=== PATIENT | male | born 1960 | race Caucasian/White ===

== ENCOUNTER 2020-11-23 14:43 | Observation (INO) | payer MEDICARE, MEDICAID, SELFPAY ==
[2020-11-23] VITALS (13 sets, daily range): BP systolic 112–178; BP diastolic 61–92; PULSE 69–85; RESP 12–20; TEMP 36.7–36.8; O2SAT 95–97; BMI 45.7
--- NOTE | 2020-11-23 14:47 | ECG_ITS ---
[facility] Test Date: 2020-11-23 Pat Name: Jeremie Alexander Department: Room: Gender: Male Public Address Technician: : 1960 Requested By: Moustapha Brown Order Number: [id number] Jane MD: Joyce Gonzalez M.D. Measurements Intervals [place] Rate: 85 P: 45 ID: [id number] QRS: 5 QRSD: 104 T: 16 QT: 365 QTc: 435 Interpretive Statements SINUS RHYTHM LOW QRS VOLTAGE IN PRECORDIAL LEADS [QRS DEFLECTION < 1.0 mV IN CHEST LEADS] INTERPRETATION BASED ON A DEFAULT AGE OF 40 YEARS No previous ECG available for comparison Electronically Signed On 11-24-2020 10:36:26 CDT by Joyce Gonzalez M.D. [id number]
--- NOTE | 2020-11-23 14:47 | XRR_ITS ---
PROCEDURE INFORMATION: Exam: XR Chest Exam date and time: 11/23/2020 3:01 PM Age: 60 years old Clinical indication: Chest pain; Prior surgery; Surgery type: Pacemaker, stents; Additional info: Cp TECHNIQUE: Imaging protocol: XR of the chest. Views: 1 view. COMPARISON: No relevant prior studies available. FINDINGS: Tubes, catheters and devices: There is a dual-lead cardiac AICD via left subclavian approach. The tips are in the expected locations of the right atrium and right ventricle. Lungs: Mild elevation of the right hemidiaphragm. No focal consolidation. No pulmonary edema. Pleural spaces: No pleural effusion. No pneumothorax. Heart/Mediastinum: The cardiac silhouette is mildly enlarged. Mediastinal contours are unremarkable. Vasculature: Vascular calcifications in the aorta. Bones/joints: Unremarkable for age. XR/XR chest 1V portable [id number] IMPRESSION: 1. No acute cardiopulmonary process. 2. There is a dual-lead cardiac AICD via left subclavian approach. The tips are in the expected locations of the right atrium and right ventricle. 3. Incidental/nonacute findings are listed in the report.
--- NOTE | 2020-11-23 14:56 | W.ED.CHESTPA ---
HPI - Chest Pain General: Chief Complaint: Chest Pain Stated Complaint: CHEST PAIN Time Seen by Provider: 11/23/20 14:47 History of Present Illness: HPI narrative: The patient is a 60-year-old male with past medical history very artery disease with 9 stents, pacer placement, atrial fibrillation on Eliquis. He comes to the ER complaining of left-sided chest pain. He says he has never had an FL before. He took 3 nitroglycerin at home yesterday which helped his chest pain and today they did not so he called an ambulance. They gave him aspirin 325, and fentanyl 100 mg which decreased his pain from a 9 to a 7. 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 Timing of current episode: episodic Onset: during rest and during exertion Pain location: left chest Severity: moderate Quality: tightness Relieving factors: nothing Associated symptoms: Reports nausea; Deny dyspnea or palpitations Review of Systems General: Reports: 10 or more systems reviewed and unremarkable except in HPI and below Const: Denies: fatigue Eyes: Denies: change in vision, blurry vision or eye redness ENMT: Denies: throat pain, swelling of lips/tongue, ear or mastoid pain or nasal congestion Card: Reports: chest pain; Denies: palpitations, irregular heart rhythm, edema, dyspnea on exertion or orthopnea Resp: Denies: dyspnea, productive cough or non-productive cough GI: Reports: nausea : Denies: flank pain, urinary frequency or urinary urgency Musc: Denies: neck pain, back pain, extremity pain, joint pain, joint redness, limited range of motion or muscle weakness Skin/Breast: Denies: rash, pruritus, erythema, skin pain or skin tenderness Neuro: Denies: headache(s), numbness in extremities, weakness in extremities, sensory changes, difficulty walking, dizziness, confusion or Slurred speech present Psych: Denies: anxiety or depression Endo: Denies: polyuria All/Imm: Denies: urticaria, throat swelling or tongue swelling Physical Exam Const: COMMON NORMALS: no acute distress, average body habitus, patient oriented x3, no limitations, healthy appearing, alert and well nourished GENERAL APPEARANCE: cooperative, comfortable, well kempt and well developed ORIENTATION/CONSCIOUSNESS: Yes awake, Yes oriented to person, Yes oriented to place and Yes oriented to time HENMT: COMMON NORMALS: normocephalic, external ears normal and Normal external nose present HEAD & SCALP: normal to inspection and normocephalic NOSE: Normal external nose present EXTERNAL EAR: Yes external ears normal MOUTH: Normal oral and palatal mucosa present THROAT: posterior oropharynx normal Eye: COMMON NORMALS: Equal, round and reactive pupils present and EOMs intact bilaterally GENERAL EYE: appearance normal, both eyes and all related structures PUPIL: Yes Equal, round and reactive pupils present Neck/C-Spine: COMMON NORMALS: full ROM, no lymphadenopathy, no meningeal signs and no JVD GENERAL: Yes normal visual inspection Lymph: LYMPHATIC: no lymphadenopathy noted Chest: COMMONS NORMALS: normal inspection of the chest and normal palpation of entire chest wall Resp: COMMON NORMALS: normal respiratory effort, No retractions, No use of accessory muscles, clear to auscultation bilaterally and percussion normal EFFORT & INSPECTION: Yes able to speak in complete sentences AUSCULTATION: clear to auscultation bilaterally PERCUSSION: percussion normal Cardio: COMMON NORMALS: no JVD, regular rate, regular rhythm, S1 normal heart sound present, S2 normal heart sound present and Peripheral pulses 2+ throughout RATE: regular rate RHYTHM: regular rhythm HEART SOUNDS: S1 normal heart sound present and S2 normal heart sound present PERIPHERAL PULSES: Peripheral pulses 2+ throughout GI: COMMON NORMALS: Normal to inspection, nondistended, normoactive bowel sounds present, Soft to palpation, non-tender and no masses INSPECTION: Yes normal to inspection PALPATION: Yes Soft to palpation : COMMON NORMALS: Yes no CVA tenderness BLADDER/KIDNEY EXAM: Yes no CVA tenderness Back/Pelvis: COMMON NORMALS: no CVA tenderness, thoracic and lumbar spine normal to inspection, no thoracic nor lumbar tenderness and thoraco-lumbar ROM normal Extremity: COMMON NORMALS: normal to inspection, full ROM, capillary refill normal, no joint enlargement and no pedal edema GENERAL: Yes normal exam except as noted Neuro: COMMON NORMALS: patient oriented x3, CN's II-XII intact bilaterally, moves all extremities, no focal motor deficits, no sensory deficits noted and gait normal SENSORIUM/ORIENTATION: Yes alert, Yes oriented to person, Yes oriented to place and Yes oriented to time MENINGEAL SIGNS: Yes no meningeal signs Psych: COMMON NORMALS: mental status grossly normal, Normal thought process present, cooperative, normal affect and speech normal APPEARANCE: Yes well kempt ATTITUDE: Yes calm SPEECH: Yes normal speech THOUGHT PROCESS: Normal thought process present Skin: COMMON NORMALS: no rashes or lesions noted GENERAL SKIN EXAM: no rashes or lesions noted Course Vital Signs: Vital signs: Vital Signs Temperature 98.3 F 11/23/20 14:51 Pulse Rate 77 11/23/20 18:21 Respiratory Rate 20 H 11/23/20 18:21 Blood Pressure 148/78 11/23/20 18:21 Pulse Oximetry 96 11/23/20 18:21 MDM - Chest Pain MDM Narrative: Medical decision making narrative: Patient comes to the ER complaining of left-sided typical chest pain. He has a significant history of coronary artery disease with 9 stents, A. fib, pacer. Nitroglycerin was not working at home. Troponins are normal and EKG shows sinus rhythm. He continues to require narcotics for his pain and typical chest pain. Discussed with Dr. Inman who accepts for observation Lab Data: Labs: Lab Results 11/23/20 11/23/20 11/23/20 Range/Units 15:20 15:20 15:20 WBC 6.1 (4.0-10.0) 10^3/ uL RBC 4.51 (4.1-5.3) 10^6/u L Hgb 13.1 (11.7-16.6) g/dL Hct 41.5 L (42.0-52.0) % MCV 92.0 (80-94) fL MCH 29.0 (28.0-34.0) pg MCHC 31.6 (30.0-36.0) g/dL RDW 19.8 H (12.1-15.1) % Plt Count 222 (130-400) 10^3/c mm MPV 10.2 (7.4-10.4) fL Neut % (Auto) 61.7 % Lymph % (Auto) 25.7 % [place] % (Auto) 10.6 % Eos % (Auto) 1.3 % Baso % (Auto) 0.5 % Neut # (Auto) 3.78 (1.8-7.7) 10^3/u L Lymph # (Auto) 1.6 (0.8-4.8) 10^3/u L [place] # (Auto) 0.7 (0.2-0.9) 10^3/u L Eos # (Auto) 0.1 (0.0-0.8) 10^3/u L Baso # (Auto) 0.0 (0.0-0.1) 10^3/u L Nucleated RBC % (a uto) 0 % Nucleated RBCs # 0.0 /100WBC D-Dimer 0.34 (0-0.59) ug/mIFE U Sodium 141 (136-145) mmol/L Potassium 4.1 (3.5-5.1) mmol/L Chloride 106 (98-107) mmol/L Carbon Dioxide 26 (22-29) mmol/L Anion Gap 13.1 (5-19) BUN 12 (6-20) mg/dL Creatinine 1.0 (0.7-1.2) mg/dL GFR Calculation 76.5 L (90-130) mL/min Glucose 127 H (65-115) mg/dL Calculated Osmolal ity 293 (285-295) mOsm/k g Calcium 8.4 L (8.5-10.5) mg/dL Total Bilirubin 0.2 (0.15-1.2) mg/dL AST 28 (0-40) U/L ALT 46 H (0-41) U/L Alkaline Phosphata se 132 H (40-130) IU/L Troponin T Baselin e (0-15) ng/L Troponin T 120 Min ramos (0-15) ng/L Delta Troponin T (0-10) ABS# NT-Pro-B Natriuret Pep 49 (0-125) pg/mL Total Protein 6.2 L (6.6-8.7) g/dL Albumin 4.0 (3.5-5.2) g/dL Globulin 2.2 (1.3-4.6) g/dL Urine Color (Yellow) Urine Appearance (CLEAR) Urine pH (5-7) Ur Specific Gravit y (1.005-1.030) Urine Protein (Negative) Urine Glucose (UA) (Normal) Urine Ketones (Negative) Urine Blood (Negative) Urine Nitrate (Negative) Urine Bilirubin (Negative) Urine Urobilinogen (Negative) mg/dL Ur Leukocyte Kristina ase (Negative) Urine RBC (0-2) /hpf Urine WBC (0-5) /hpf Ur Squamous Epith Cells (0-5) /hpf Calcium Oxalate Cr ystal /hpf Amorphous Sediment Urine Bacteria (NONE) /hpf Urine Mucus /hpf 11/23/20 11/23/20 11/23/20 Range/Units 15:20 15:35 17:15 WBC (4.0-10.0) 10^3/ uL RBC (4.1-5.3) 10^6/u L Hgb (11.7-16.6) g/dL Hct (42.0-52.0) % MCV (80-94) fL MCH (28.0-34.0) pg MCHC (30.0-36.0) g/dL RDW (12.1-15.1) % Plt Count (130-400) 10^3/c mm MPV (7.4-10.4) fL Neut % (Auto) % Lymph % (Auto) % [place] % (Auto) % Eos % (Auto) % Baso % (Auto) % Neut # (Auto) (1.8-7.7) 10^3/u L Lymph # (Auto) (0.8-4.8) 10^3/u L [place] # (Auto) (0.2-0.9) 10^3/u L Eos # (Auto) (0.0-0.8) 10^3/u L Baso # (Auto) (0.0-0.1) 10^3/u L Nucleated RBC % (a uto) % Nucleated RBCs # /100WBC D-Dimer (0-0.59) ug/mIFE U Sodium (136-145) mmol/L Potassium (3.5-5.1) mmol/L Chloride (98-107) mmol/L Carbon Dioxide (22-29) mmol/L Anion Gap (5-19) BUN (6-20) mg/dL Creatinine (0.7-1.2) mg/dL GFR Calculation (90-130) mL/min Glucose (65-115) mg/dL Calculated Osmolal ity (285-295) mOsm/k g Calcium (8.5-10.5) mg/dL Total Bilirubin (0.15-1.2) mg/dL AST (0-40) U/L ALT (0-41) U/L Alkaline Phosphata se (40-130) IU/L Troponin T Baselin e 14 (0-15) ng/L Troponin T 120 Min ramos 14.83 (0-15) ng/L Delta Troponin T 0.83 (0-10) ABS# NT-Pro-B Natriuret Pep (0-125) pg/mL Total Protein (6.6-8.7) g/dL Albumin (3.5-5.2) g/dL Globulin (1.3-4.6) g/dL Urine Color Yellow (Yellow) Urine Appearance Clear (CLEAR) Urine pH 5 (5-7) Ur Specific Gravit y 1.020 (1.005-1.030) Urine Protein Trace (Negative) Urine Glucose (UA) Norm (Normal) Urine Ketones Negative (Negative) Urine Blood Neg (Negative) Urine Nitrate Negative (Negative) Urine Bilirubin Neg (Negative) Urine Urobilinogen Norm (Negative) mg/dL Ur Leukocyte Kristina ase Negative (Negative) Urine RBC None (0-2) /hpf Urine WBC None (0-5) /hpf Ur Squamous Epith Cells None (0-5) /hpf Calcium Oxalate Cr ystal 5-10 H /hpf Amorphous Sediment Not Reportable Urine Bacteria Trace (NONE) /hpf Urine Mucus 1+ /hpf Discharge Plan Discharge Patient Disposition: Placed in Observation Clinical Impression: Chest pain Coding Level of Care Code ED Winding Rack Operator for Anabela Fwd Exam Comprehensive
[2020-11-23 15:29] LABS: Basophils % 0.5 %; Eosinophils # 0.1 10^3/uL (0.0-0.8); Eosinophils % 1.3 %; Hematocrit 41.5 % (42.0-52.0); Hemoglobin 13.1 g/dL (11.7-16.6); Lymphocytes # 1.6 10^3/uL (0.8-4.8); Lymphocytes % 25.7 %; Mean Corpuscular HGB Conc 31.6 g/dL (30.0-36.0); Mean Platelet Volume 10.2 fL (7.4-10.4); Monocytes # 0.7 10^3/uL (0.2-0.9); Monocytes % 10.6 %; Neutrophils # 3.78 10^3/uL (1.8-7.7); Neutrophils % 61.7 %; Nucleated Red Blood Cells % 0 %; Platelet Count 222 10^3/cmm (130-400); Red Blood Count 4.51 10^6/uL (4.1-5.3); Red Cell Distribution Width 19.8 % (12.1-15.1); White Blood Count 6.1 10^3/uL (4.0-10.0)
[2020-11-23 15:42] LABS: D Dimer 0.34 ug/mIFEU (0-0.59)
[2020-11-23] MEDS: morphine 4 mg/mL SDV 1 mL 2 MG IVP ×2 (15:47→19:13)
[2020-11-23 15:58] LABS: Troponin(5th) Baseline 14 ng/L (0-15)
[2020-11-23 16:06] LABS: Alanine Aminotransferase 46 U/L (0-41); Alkaline Phosphatase 132 IU/L (40-130); Anion Gap 13.1 (5-19); Aspartate Amino Transferase 28 U/L (0-40); Blood Urea Nitrogen 12 mg/dL (6-20); Calcium 8.4 mg/dL (8.5-10.5); Carbon Dioxide 26 mmol/L (22-29); Chloride 106 mmol/L (98-107); Globulin 2.2 g/dL (1.3-4.6); Glomerular Filtration Rate 76.5 mL/min (90-130); Glucose 127 mg/dL (65-115); NT Pro B Type Natriuretic Pept 49 pg/mL (0-125); Osmolality Calculated 293 mOsm/kg (285-295); Potassium 4.1 mmol/L (3.5-5.1); Sodium 141 mmol/L (136-145); Total Bilirubin 0.2 mg/dL (0.15-1.2); Total Protein 6.2 g/dL (6.6-8.7)
[2020-11-23 16:10] LABS: Add Urine Microscopic? YES; Bilirubin Urine Neg (Negative); Blood Urine Neg (Negative); Glucose Urine UA Norm (Normal); Ketones Urine Negative (Negative); Leukocyte Esterase Urine Negative (Negative); Nitrate Urine Negative (Negative); Protein Urine Trace (Negative); Urine Appearance Clear (CLEAR); Urine Color Yellow (Yellow); Urobilinogen Urine Norm (Negative); pH Urine 5 (5-7)
[2020-11-23 16:12] LABS: Add Urine Culture? No; Bacteria Urine TRACE /hpf; Mucus Urine 1+ /hpf
--- NOTE | 2020-11-23 16:47 | ECG_ITS ---
[facility] Test Date: 2020-11-23 Pat Name: Jeremie Alexander Department: Room: Gender: Male Lead Systems Analyst: : 1960 Requested By: Moustapha Brown Order Number: [id number] Lucinda MD: Joyce Gonzalez M.D. Measurements Intervals [place] Rate: 79 P: 65 [place]: 151 QRS: 15 QRSD: 103 T: 30 QT: 279 QTc: 321 Interpretive Statements SINUS RHYTHM LOW QRS VOLTAGE IN PRECORDIAL LEADS [QRS DEFLECTION < 1.0 mV IN CHEST LEADS] NONSPECIFIC T-WAVE ABNORMALITY Compared to ECG 11/23/2020 14:51:25 T-wave abnormality now present Electronically Signed On 11-24-2020 10:52:10 CDT by Joyce Gonzalez M.D. [id number]
[2020-11-23 17:44] LABS: Troponin 5 2HR 14.83 ng/L (0-15); Troponin 5 2HR Delta 0.83 ABS# (0-10)
[2020-11-23] MEDS: ondansetron 2 mg/ML SDV 2 mL 4 MG IVP (19:13)
--- NOTE | 2020-11-23 19:38 | PM.HP ---
Providers/Chief Complaint Admitting Physician: Woody Inman MD Primary Care Provider: Livia Ridley MD Chief Complaint: CHEST PAIN History of Present Illness Jeremie Alexander is a 60 year old male who has established history of coronary disease status post 9 stents, pacemaker for sick sinus syndrome, atrial fibrillation chronic anticoagulation with Eliquis, depression presented today with chief complaint of left-sided chest discomfort. Patient is stating that his symptoms started at 10 AM, he is describing his symptoms as dull left-sided pain which she is able to pinpoint, it gets worse on taking deep breath, no vomiting, diaphoresis however endorsing shortness of breath and nausea, this pain was radiating towards his left shoulder and neck. He stating that this pain was similar to the one when he had stent placed. When he took nitroglycerin it did not relieve his chest discomfort. He considers himself fairly active. Does not smoke or drink alcohol. Diagnostics in the ER revealed normal EKG no significant ischemia or infarct changes, troponin not remarkably high, he is still complaining of chest discomfort as dull and constant Chest x-ray unremarkable, no electrolyte abnormality PE ruled out, calcium oxalate crystals urine Review of Systems Const: Denies: fever(s) Eyes: Denies: change in vision ENMT: Denies: throat pain Card: Reports: chest pain, irregular heart rhythm and dyspnea on exertion Resp: Denies: dyspnea GI: Denies: abdominal pain : Denies: flank pain Musc: Denies: neck pain Skin/Breast: Denies: rash Neuro: Denies: headache(s) Psych: Denies: anxiety Endo: Denies: polyuria Phu/Lymph: Denies: easy bruising All/Imm: Denies: urticaria Medications/Allergies Home Medications Medication Instructions Recorded Confirmed Last Taken Type amiodarone 200 mg PO BID 11/23/20 11/23/20 11/23/20 08:00 History apixaban [Eliquis] 5 mg PO BID 11/23/20 11/23/20 11/23/20 08:00 History bupropion HCl 100 mg PO QAM 11/23/20 11/23/20 11/23/20 08:00 History clopidogrel [Plavix] 75 mg PO DAILY 11/23/20 11/23/20 11/23/20 08:00 History cyproheptadine 4 mg PO BEDTIME 11/23/20 11/23/20 11/22/20 21:00 History desvenlafaxine succinate 50 mg PO DAILY 11/23/20 11/23/20 11/23/20 08:00 History donepezil [Aricept] 30 mg PO DAILY 11/23/20 11/23/20 11/23/20 08:00 History famotidine 20 mg PO DAILY 11/23/20 11/23/20 11/23/20 08:00 History ferrous sulfate 325 mg PO BID 11/23/20 11/23/20 11/23/20 08:00 History isosorbide mononitrate 30 mg PO BID 11/23/20 11/23/20 11/23/20 08:00 History lisinopril 20 mg PO DAILY 11/23/20 11/23/20 11/23/20 08:00 History metformin 500 mg PO DAILY 11/23/20 11/23/20 11/23/20 08:00 History mirtazapine 45 mg PO BEDTIME 11/23/20 11/23/20 11/22/20 21:00 History nvehvsnd-rrh-VJ-lycopen-lutein 1 tab PO DAILY 11/23/20 11/23/20 11/23/20 08:00 History [Sentry Senior] omega-3 fatty acids-vitamin E 1 cap PO DAILY 11/23/20 11/23/20 11/23/20 08:00 History [Fish Oil] ranolazine 500 mg PO BID 11/23/20 11/23/20 11/23/20 08:00 History rosuvastatin [Crestor] 20 mg PO DAILY 11/23/20 11/23/20 11/23/20 08:00 History tamsulosin 0.4 mg PO DAILY 11/23/20 11/23/20 11/23/20 08:00 History temazepam 15 mg PO BEDTIME 11/23/20 11/23/20 11/22/20 21:00 History Allergies Allergy/AdvReac Type Severity Reaction Status Date / Time ticagrelor [From Brilinta] Allergy Unknown ALGY-Hives Verified 11/23/20 15:07 trazodone Allergy Unknown ADR-Nightma Verified 11/23/20 15:07 re PFSH Acute PFSH: Medical History Afib CAD (coronary artery disease) Chronic anticoagulation Diabetes HTN (hypertension) Pacemaker SSS (sick sinus syndrome) Surgical History Gastric banding status S/P placement of cardiac pacemaker Status post cholecystectomy Family History Father CAD (coronary artery disease) Mother Cancer Social History Smoking and tobacco status: never smoked Alcohol intake: never Substance/Drug Use: never Household members: spouse Housing: House Vitals/I&O/Wt Last Vital Signs Temp 98.3 F 11/23/20 14:51 Pulse 75 11/23/20 19:00 Resp 20 H 11/23/20 19:13 BP 175/65 11/23/20 19:00 Pulse Ox 96 11/23/20 19:00 Weight last 48 hrs Weight 117.027 kg Physical Exam Narrative: EXAM NARRATIVE: morbidly obese male currently laying comfortably in supine position saturating well on room air Complaining of dull left-sided chest discomfort which she is able to pinpoint however it is not reproducible, it gets worse on taking deep breaths, variable S1-S2 no murmur appreciated Does not look fluid overloaded Abdomen soft bowel sounds present Bilateral breath sounds without adventitious sounds no acute respiratory distress Lower extremity no edema gangrene or ulcer EOMI, PERRLA Appropriate mood and affect cooperative and pleasant during my evaluation Data : 11/23/20 15:20 11/23/20 15:20 A&P Assessment and plan (1) Atypical chest pain: Pleuritic chest pain Gets worse on taking deep breaths, dull constant pain radiating to left shoulder, troponin unremarkable, EKG without ischemic or infarctive changes, D-dimer ruled out PE, no recent fever or sinusitis, I do not see any pericardial inflammation changes on EKG, will check CRP, do not see any pacer spikes on EKG, will do pacemaker evaluation We will observe overnight because of his extensive history of coronary disease and constant dull left-sided pain will request echo in the morning to see any wall motion abnormality I will continue his antianginal medications Status: Acute Additional A&P Information A. fib without RVR continue AV angelica blocking agent, antiarrhythmics and Eliquis Type 2 diabetes: Moderate sliding scale consistent carb diet Depression: He takes multiple antipsychotics and antidepressants, QTC 435 Full code Cardiac diet/consistent carb DVT prophylaxis not indicated due to Eliquis Attestations Medical Necessity Statement*: Anticipating discharge in less than 48 hours currently need overnight monitoring because of extensive history of coronary disease 9 stents and dull constant chest pain Time Spent in Patient Care: (>than 50% of time spent in counselling and/or direct pt care on unit). 35mins Coding Level of Care Code Acute Appraiser Real Estate for Chg Fwd Diagnoses Atypical chest pain R07.89
--- NOTE | 2020-11-23 22:00 | PC.NURSE ---
Telephoned Dr Inman to clarify orders. Received order to begin Restoril, Remeron and cyproheptadine tonight. RBVO
[2020-11-23] MEDS: temazepam 15 mg Capsule PO (22:19)
[2020-11-23] MEDS: mirtazapine 30 mg Tablet 45 MG PO (22:20)
[2020-11-23] MEDS: morphine IR 15 mg Tablet PO (22:48)
[2020-11-24] VITALS (13 sets, daily range): BP systolic 108–164; BP diastolic 49–80; PULSE 71–102; RESP 12–18; TEMP 36.4–36.8; O2SAT 91–97
[2020-11-24 01:48] LABS: Troponin T (5th) Once 15 ng/L (0-15)
--- NOTE | 2020-11-24 01:59 | ECG_ITS ---
[facility] Test Date: 2020-11-24 Pat Name: Jeremie Alexander Department: Room: 112 Gender: Male Community Development Director: : 1960 Requested By: Woody Inman Order Number: [id number] Lucinda MD: Joyce Gonzalez M.D. Measurements Intervals [place] Rate: 86 P: 52 [place]: 153 QRS: -7 QRSD: 106 T: 28 QT: 291 QTc: 350 Interpretive Statements SINUS RHYTHM LOW QRS VOLTAGE IN PRECORDIAL LEADS [QRS DEFLECTION < 1.0 mV IN CHEST LEADS] NONSPECIFIC T-WAVE ABNORMALITY Compared to ECG 11/23/2020 17:12:36 No significant changes Electronically Signed On 11-24-2020 10:26:15 CDT by Joyce Gonzalez M.D. [id number]
[2020-11-24] MEDS: morphine IR 15 mg Tablet PO ×3 (05:19→17:34)
[2020-11-24] MEDS: buPROPion SR (12 HR) 100 mg Tablet PO (05:19)
[2020-11-24 06:14] LABS: Magnesium 2.2 mg/dL (1.7-2.3)
[2020-11-24 06:58] LABS: Glucose Point of Care 106 mg/dL (70-110)
[2020-11-24] MEDS: clopidogrel 75 mg Tablet PO (09:25)
[2020-11-24] MEDS: tamsulosin 0.4 mg Capsule PO (09:25)
[2020-11-24] MEDS: lisinopril 20 mg Tablet PO (09:25)
[2020-11-24] MEDS: apixaban 5 mg Tablet PO ×2 (09:25→17:34)
[2020-11-24] MEDS: amiodarone 200 mg Tablet PO ×2 (09:25→17:34)
[2020-11-24] MEDS: isosorbide mononitrate ER 30 mg Tablet PO ×2 (09:25→17:34)
[2020-11-24] MEDS: famotidine 20 mg Tablet PO (09:25)
[2020-11-24] MEDS: ranolazine (12HR) 500 mg Tablet PO ×2 (09:25→17:34)
[2020-11-24] MEDS: atorvastatin 40 mg Tablet 80 MG PO (09:25)
[2020-11-24] MEDS: desvenlafaxine 50 mg Tablet PO (09:26)
[2020-11-24 11:18] LABS: Glucose Point of Care 91 mg/dL (70-110)
--- NOTE | 2020-11-24 13:42 | PC.NUTR ---
NUTRITION WEIGHT ASSESSMENT: Ht. 63 inches. Wt. 258 pounds. BMI of 45.7 kg/m2 indicates Morbid Obesity.
[2020-11-24 16:35] LABS: Glucose Point of Care 125 mg/dL (70-110)
--- NOTE | 2020-11-24 18:02 | PC.NURSE ---
Patient noted to have a 10 beat run of Vtach. Patient asymptomatic besides a light feeling of flutters in his heart . Dr. Ortiz notified.
--- NOTE | 2020-11-24 20:02 | USCV_ITS ---
Jeremie Alexander Age: 60 Gender: M : 1960 Exam Date: 11/24/2020 08:48 Ordering Phys: Woody Inman MD Technologist: Vijaya Costa Exam Location: [facility] Indication: Angina BP: 161 / 64 HR: 78 Rhythm: Sinus Technical Quality: Suboptimal MEASUREMENTS (Male / Female) Normal Values 2D ECHO LV Diastolic Diameter PLAX 3.9 cm 4.2 - 5.9 / 3.9 - 5.3 cm LV Systolic Diameter PLAX 2.7 cm LV Chamber Size 3.9 cm IVS Diastolic Thickness 1.5 cm 0.6 - 1.0 / 0.6 - 0.9 cm IVS Systolic Thickness 2.5 cm LVPW Diastolic Thickness 1.2 cm 0.6 - 1.0 / 0.6 - 0.9 cm LVPW Systolic Thickness 0.6 cm RV Chamber Size 3.1 cm LVOT Diameter 1.9 cm LV Ejection Fraction 2D Teich 60.1 % LV Ejection Fraction MOD 2C 66.1 % LV Ejection Fraction 2C AL 66.2 % LA Diameter 4.7 cm LA Width 2.9 cm LA Height 5.2 cm RA Width 2.7 cm RA Height 4.2 cm Aorta at Sinotubular Diameter 2.6 cm M-MODE LV Diastolic Diameter MM 5.6 cm 4.2 - 5.9 / 3.9 - 5.3 cm LV Systolic Diameter MM 3.8 cm LV Ejection Fraction MM Teich 59.5 % IVS Diastolic Thickness MM 1.9 cm 0.6 - 1.0 / 0.6 - 0.9 cm IVS Systolic Thickness MM 2.0 cm LVPW Diastolic Thickness MM 1.6 cm 0.6 - 1.0 / 0.6 - 0.9 cm LVPW Systolic Thickness MM 1.7 cm RV Diastolic Diameter MM 0.7 cm Aortic Annulus Diameter 3.2 cm LA Ao Ratio MM 1.8 DOPPLER AV Peak Velocity 173.0 cm/s LVOT Peak Velocity 94.0 cm/s AV Area Cont Eq vti 1.7 cm squared AV Area Cont Eq pk 1.6 cm squared MV Area PHT 3.7 cm squared Mitral E to A Ratio 1.0 MV E' Velocity 33.0 cm/s Mitral E to MV E' Ratio 6.8 Mitral E to LV E' Lateral Ratio 5.6 Mitral E to LV E' Septal Ratio 8.8 TV Peak E Velocity 72.0 cm/s Right Atrial Pressure 8.0 mmHg PV Peak Velocity 125.0 cm/s RV Acceleration Time 0.1 s RV Ejection Time 0.2 s RV AcT/ET 0.4 FINDINGS Left Ventricle Normal left ventricular size, systolic function and wall thickness, with no diagnostic regional wall motion abnormalities. Left ventricular ejection fraction is estimated at 65 %. Normal diastolic function. Right Ventricle Normal right ventricular size and systolic function. Normal pulmonary artery pressure. Right Atrium Normal right atrial size. Right atrial pressure estimated at 8 mm Hg. Left Atrium Normal left atrial size. Mitral Valve Structurally normal mitral valve. No mitral valve stenosis. Trace mitral valve regurgitation. Aortic Valve Aortic valve not well visualized. No aortic valve stenosis. No aortic valve regurgitation. Tricuspid Valve Structurally normal tricuspid valve. Trace tricuspid valve regurgitation. Pulmonic Valve Pulmonic valve not well visualized. Pericardium No pericardial effusion. Aorta Normal sized aortic root. CONCLUSIONS 1. Normal left ventricular size, systolic function and wall thickness, with no diagnostic regional wall motion abnormalities. Left ventricular ejection fraction is estimated at 65 %. Normal diastolic function. 2. Normal right ventricular size and systolic function. 3. No significant valvular abnormality. 4. Normal pulmonary artery pressure. 5. No prior similar studies to compare. Joyce Gonzalez MD (Electronically Signed) Final Date: 24 November 2020 13:23 S
--- NOTE | 2020-11-24 20:29 | P.PN_ITS ---
Subjective Subjective: Interval history: He is still having intermittent ache in the left side of his chest, and sometimes also pain that is worsened by deep inspiration. Reports symptoms are similar to how he felt when he got his stent. Denies cough. Denies pain with movement. There is some radiation to his left shoulder, but denies any pain with lifting his arms. Denies any recent heavy l ifting or trauma. Had an episode of vomiting yesterday, however, chest pain was there before. Denies heartburn. Denies noticing any issues with the pacemaker pocket. Vitals/I&O/Wt Last Vital Signs Temp 98.3 F 11/24/20 20:00 Pulse 74 11/24/20 20:00 Resp 17 11/24/20 20:00 BP 115/80 11/24/20 20:00 Pulse Ox 97 11/24/20 20:00 11/24/20 11/24/20 11/24/20 06:59 14:59 22:59 Intake Total 250 / 250 480 / 480 240 / 720 Output Total 950 / 950 175 / 175 100 / 275 Balance -700 / -700 305 / 305 140 / 445 Weight last 48 hrs Weight 117.027 kg Physical Exam Const: COMMON NORMALS: no acute distress, patient oriented x3 and alert GENERAL APPEARANCE: cooperative NUTRITIONAL APPEARANCE: obese ORIENTATION/CONSCIOUSNESS: Yes awake HENMT: COMMON NORMALS: oropharynx normal Neck/C-Spine: COMMON NORMALS: no JVD Chest: OTHER: No pain on palpation of the chest. Resp: COMMON NORMALS: normal respiratory effort and clear to auscultation bilaterally AUSCULTATION: clear to auscultation bilaterally Cardio: COMMON NORMALS: no JVD, regular rhythm, S1 normal heart sound present, S2 normal heart sound present and No murmurs present (Cardio) RHYTHM: regular rhythm HEART SOUNDS: S1 normal heart sound present and S2 normal heart sound present GI: COMMON NORMALS: Normal to inspection, nondistended, normoactive bowel sounds present, Soft to palpation and non-tender PALPATION: Yes Soft to palpation Extremity: COMMON NORMALS: no joint enlargement and no pedal edema OTHER: No pain on passive or active range of motion of left shoulder. No pain on biceps palpation. Neuro: COMMON NORMALS: patient oriented x3 and moves all extremities SE NSORIUM/ORIENTATION: Yes alert Skin: COMMON NORMALS: no rashes or lesions noted GENERAL SKIN EXAM: no rashes or lesions noted Data : 11/23/20 15:20 11/23/20 15:20 A&P Assessment and plan (1) Atypical chest pain: Persistent/recurrent chest pain. Reports dull aching component which is present more persistently, as well as component that is pleuritic. Reports this is similar to symptoms he had during placement of prior stent. Today also noted to have a 10 beat run of V. tach. Discussed with him results of troponin which are normal, EKG. At this time acute IL is not suggested. However, with history of coronary disease, with concern of progression of CAD, will arrange for additional risk stratification. Discussing with him he is agreeable for assessment with stress test tomorrow. We will also obtain noncontrast CT of the chest due to the atypical nature of the pain. D-dimer was normal. Normal right ventricle size and systolic function. He is also on anticoagulation with Eliquis. PE is rather unlikely. Pacemaker evaluation. Status: Acute Additional A&P Information 10 beat run of V. tach today: Electrolytes are good. Additional assessment of possible progression of coronary disease tomorrow by stress testing. A. fib without RVR continue AV angelica blocking agent, antiarrhythmics and Eliquis Type 2 diabetes: Moderate sliding scale consistent carb diet Depression: He takes multiple antipsychotics and antidepressants, QTC 435 Full code Cardiac diet/consistent carb DVT prophylaxis not indicated due to Eliquis Attestations Medical Necessity Statement*: Continue hospitalization for additional assessment of recurrent/persistent chest pain and stress testing due to underlying coronary artery disease. Coding Level of Care Code Acute Script Developer for Anabela Clark Diagnoses Atypical chest pain R07.89
[2020-11-24 20:31] LABS: Glucose Point of Care 152 mg/dL (70-110)
--- NOTE | 2020-11-24 20:31 | CTR_ITS ---
PROCEDURE INFORMATION: Exam: CT Chest Without Contrast; Diagnostic Exam date and time: 11/24/2020 9:13 PM Age: 60 years old Clinical indication: Left-sided chest pain; Prior surgery; Surgery date: 6+ months; Surgery type: Pacer; Patient HX: C/O intermittent L cp worse on inspiration; Additional info: Persistent atypical chest pain TECHNIQUE: Imaging protocol: Diagnostic computed tomography of the chest without contrast. Total images: 294 Radiation optimization: All CT scans at this facility use at least one of these dose optimization techniques: automated exposure control; mA and/or kV adjustment per patient size (includes targeted exams where dose is matched to clinical indication); or iterative reconstruction. COMPARISON: CR (CHEST, ) 11/23/2020 2:59 PM RADIATION DOSE METRICS: Total DLP (mGy-cm): 902.41 FINDINGS: Tubes, catheters and devices: Pacemaker with metal artifact. Lungs: No visible active interstitial or alveolar airspace disease. No visible significant restrictive or reactive airway disease. Calcified granulomas of antecedent disease. Pleural spaces: Unremarkable. No pneumothorax. No pleural effusion. Heart: Tiny pericardial effusion. No cardiomegaly. Advanced 3 vessel coronary artery disease. Mediastinal space: Patulous esophagus and suspect achalasia. Aorta: The thoracic aorta is nonaneurysmal. Mild arteriosclerosis. Lymph nodes: No visible active mediastinal or hilar lymphadenopathy. Calcified complexes of antecedent granulomatous disease. Gallbladder and bile ducts: Status post cholecystectomy. Stomach and bowel: Evidence of a previous gastroplasty and probable Raymundo fundoplication. Bones/joints: Old left rib fractures. Nonunion posterior left 7th rib fracture. No visible acute osseous pathology. Old compression wedge fracture T12. Degenerative disease of the spine. Scoliosis. Soft tissues: Unremarkable. Other findings: Marked obesity. Increased quantum mottle artifact which degrades image quality in detail assessment. CT/CT chest wo con 95521 IMPRESSION: 1. Currently no visible evidence for acute cardiopulmonary/cardiothoracic pathologic process. 2. Advanced 3 vessel coronary artery disease. 3. Other nonurgent, nonemergent, chronic, postoperative, and age related findings as detailed in text above. Radiation Dose CTDIVOL = (mGy): DLP = 902.41 (mGy-cm)
[2020-11-24] MEDS: temazepam 15 mg Capsule PO (20:58)
[2020-11-24] MEDS: mirtazapine 30 mg Tablet 45 MG PO (20:58)
[2020-11-25] VITALS (14 sets, daily range): BP systolic 102–152; BP diastolic 48–70; PULSE 58–83; RESP 10–19; TEMP 36.6–36.9; O2SAT 91–96
[2020-11-25] MEDS: morphine IR 15 mg Tablet PO ×3 (03:19→17:37)
[2020-11-25] MEDS: buPROPion SR (12 HR) 100 mg Tablet PO (06:24)
[2020-11-25 06:53] LABS: Glucose Point of Care 109 mg/dL (70-110)
[2020-11-25] MEDS: clopidogrel 75 mg Tablet PO (08:48)
[2020-11-25] MEDS: apixaban 5 mg Tablet PO ×2 (08:48→17:38)
[2020-11-25] MEDS: tamsulosin 0.4 mg Capsule PO (08:48)
[2020-11-25] MEDS: atorvastatin 40 mg Tablet 80 MG PO (08:48)
[2020-11-25] MEDS: famotidine 20 mg Tablet PO (08:48)
[2020-11-25] MEDS: desvenlafaxine 50 mg Tablet PO (08:48)
[2020-11-25] MEDS: lisinopril 20 mg Tablet PO (08:48)
[2020-11-25] MEDS: amiodarone 200 mg Tablet PO ×2 (09:48→17:38)
[2020-11-25] MEDS: isosorbide mononitrate ER 30 mg Tablet PO ×2 (09:48→17:37)
[2020-11-25] MEDS: ranolazine (12HR) 500 mg Tablet PO ×2 (09:48→17:38)
[2020-11-25 09:56] LABS: Glucose Point of Care 102 mg/dL (70-110)
[2020-11-25 11:28] LABS: Glucose Point of Care 115 mg/dL (70-110)
--- NOTE | 2020-11-25 11:30 | PC.NURSE ---
AMA Primary nurse notified by [facility] med staff that patient refused stress test and desired to leave AMA. Patient told nurse that he was not going to have the procedure because he was not going to wait any longer to eat. Nurse educated patient that he would be able to eat after first round of images. Patient continued to express desires to leave AMA. Dr. Davison notified. Nurse to continue to monitor.
--- NOTE | 2020-11-25 13:10 | P.PN_ITS ---
Subjective Subjective: Interval history: No acute events overnight. Patient did have mild epigastric and retrosternal chest discomfort early in the morning at 6 AM while he was laying in bed which eventually settled down after taking his medications. Denies any nausea, vomiting, palpitations, dizziness, difficulty in breathing. On examination today patient is mildly aggravated as he has been waiting for the stress test since today morning. Stress test could not be done till now as we are awaiting Lexiscan medication from [place]. I discussed discussed in detail regarding the same with the patient and he is insisting on leaving AGAINST MEDICAL ADVICE as he does not want to wait any further. I discussed with him again in detail that with his extensive cardiac history and a run of nonsustained V. tach earlier in the admission and chest pain early in the morning it is very important for us to do the stress test to find out the cause of recurrent chest pains and treat accordingly and leaving without the important tests can even be fatal. After further discussion patient has agreed to stay only if he can eat today and get a cardiac stress test tomorrow morning. Cardiac stress test have been arranged for tomorrow morning. Vitals/I&O/Wt Last Vital Signs Temp 98.0 F 11/25/20 12:00 Pulse 83 11/25/20 12:00 Resp 18 11/25/20 12:00 BP 152/68 11/25/20 12:00 Pulse Ox 91 11/25/20 12:00 11/24/20 11/25/20 11/25/20 22:59 06:59 14:59 Intake Total 240 / 720 Output Total 100 / 275 100 / 375 500 / 500 Balance 140 / 445 -100 / 345 -500 / -500 Weight last 48 hrs Weight 117.027 kg Physical Exam Narrative: EXAM NARRATIVE: General: No acute distress, AO x3, morbidly obese HEENT: PERRLA, pupils bilaterally equal and reactive Chest: Normal vesicular breath sounds, no added sounds, equal good air entry bilaterally CVS: S1-S2 regular, no murmurs, no tachycardia, no gallops, no rubs Abdomen: Soft, nontender, no organomegaly, bowel sounds present Neuro: No focal deficits, no facial deformity, AO x3, power 5/5 in all limbs Data : 11/23/20 15:20 11/23/20 15:20 A&P Assessment and plan (1) Atypical chest pain: Status: Acute Additional A&P Information Chest pain: With extensive cardiac history cannot rule out cardiac etiology. Noncontrast CT of the chest results appreciated. D-dimer negative. Echocardiogram done earlier in the admission shows an EF of 65% with no regional wall motion abnormality. Patient due for cardiac stress test tomorrow morning. Continue with Plavix, Eliquis, statins. Repeat EKG, troponin. Check HbA1c, lipid panel. 10 beat run of V. tach today: Electrolytes are good. Additional assessment of possible progression of coronary disease tomorrow by stress testing. Pacemaker evaluation to be done. Start patient on beta-mary jane with metoprolol 25 mg twice daily. A. fib without RVR continue AV angelica blocking agent, antiarrhythmics and Eliquis Type 2 diabetes: Moderate sliding scale consistent carb diet Depression: He takes multiple antipsychotics and antidepressants, QTC 435 Full code Cardiac diet/consistent carb DVT prophylaxis not indicated due to Eliquis Attestations Medical Necessity Statement*: Patient requires further hospitalization for evaluation of chest pain with extensive cardiac history, cardiac stress test tomorrow morning. Time Spent in Patient Care: Greater than 35 minutes (>than 50% of time spent in counselling and/or direct pt care on unit) . Coding Level of Care Code Acute Pullman Car Clerk for Anabela Clark Diagnoses Atypical chest pain R07.89
[2020-11-25] MEDS: metoprolol tartrate 25 mg Tablet PO ×2 (14:20→21:08)
[2020-11-25 14:21] LABS: Basophils % 0.2 %; Eosinophils # 0.1 10^3/uL (0.0-0.8); Eosinophils % 1.6 %; Hematocrit 41.6 % (42.0-52.0); Hemoglobin 12.9 g/dL (11.7-16.6); Lymphocytes # 1.2 10^3/uL (0.8-4.8); Lymphocytes % 26.1 %; Mean Corpuscular Hemoglobin 29.6 pg (28.0-34.0); Mean Corpuscular Volume 95.4 fL (80-94); Mean Platelet Volume 10.7 fL (7.4-10.4); Monocytes # 0.4 10^3/uL (0.2-0.9); Monocytes % 7.8 %; Neutrophils # 2.88 10^3/uL (1.8-7.7); Neutrophils % 64.3 %; Nucleated Red Blood Cells % 0 %; Platelet Count 192 10^3/cmm (130-400); Red Blood Count 4.36 10^6/uL (4.1-5.3); Red Cell Distribution Width 19.9 % (12.1-15.1); White Blood Count 4.5 10^3/uL (4.0-10.0)
[2020-11-25 14:41] LABS: Alanine Aminotransferase 204 U/L (0-41); Albumin Level 3.4 g/dL (3.5-5.2); Alkaline Phosphatase 203 IU/L (40-130); Anion Gap 13.4 (5-19); Aspartate Amino Transferase 138 U/L (0-40); Blood Urea Nitrogen 17 mg/dL (6-20); Calcium 8.1 mg/dL (8.5-10.5); Carbon Dioxide 25 mmol/L (22-29); Chloride 106 mmol/L (98-107); Globulin 2.5 g/dL (1.3-4.6); Glucose 204 mg/dL (65-115); Iron 46 ug/dL (59-158); Osmolality Calculated 297 mOsm/kg (285-295); Percent Saturation 17.4 % (20-50); Potassium 4.4 mmol/L (3.5-5.1); Sodium 140 mmol/L (136-145); Total Bilirubin 0.5 mg/dL (0.15-1.2); Total Iron Binding Capacity 263 mcg/dl; Total Protein 5.9 g/dL (6.6-8.7); Unsaturated Iron Binding 217 ug/dL (112-347)
[2020-11-25 14:42] LABS: Troponin T (5th) Once 14 ng/L (0-15)
[2020-11-25 15:05] LABS: Estmated Average Glucose 105; Hemoglobin A1C 5.3 % (4.0-6.0)
[2020-11-25 16:27] LABS: Glucose Point of Care 157 mg/dL (70-110)
[2020-11-25 20:30] LABS: Glucose Point of Care 98 mg/dL (70-110)
[2020-11-25] MEDS: mirtazapine 30 mg Tablet 45 MG PO (21:09)
[2020-11-25] MEDS: temazepam 15 mg Capsule PO (21:09)
[2020-11-26] VITALS (9 sets, daily range): BP systolic 117–144; BP diastolic 56–74; PULSE 62–75; RESP 16–26; TEMP 36.7; O2SAT 92–97
[2020-11-26 05:37] LABS: Chol HDL Ratio 3.53 mg/dL (1.0-5.00); Cholesterol 113 mg/dL (0-200); HDL Cholesterol 32 mg/dL (60-100); LDL Cholesterol Calculated 51 mg/dL (50-129); Triglycerides 152 mg/dL (0-150); VLDL Cholestrol Calculation 30 mg/dL (0-30)
--- NOTE | 2020-11-26 06:00 | NMCV_ITS ---
NM jonas perf SPECT r/s* [id number] Jeremie Alexander Age: 60 Gender: M : 1960 Exam Date: 11/26/2020 07:11 Ordering Phys: Lane Davison MD Technologist: LILI Tang Exam Location: [facility] Indications: CHEST PAIN STRESS TEST Please see separate stress test report in [facility] for full findings IMAGE PROTOCOL Rest/Stress 1 Lexiscan Day Radiopharmaceutical Dose (mCi) Administration Site Administered by Rest: Tc-99m 11.0 IV LILI Lima Sestamibi Stress:Tc-99m 33.0 IV LILI Lima Sestamibi Rest: 26-Nov-2020 60 Discovery 630 Stress: 26-Nov-2020 30 Discovery 630 0.4mg Lexiscan. Supine position only as patient was unable to lay prone. SPECT RESULTS Technical Quality: Excellent Raw Data Analysis: Normal Image Corrections: No attenuation or motion correction applied Summed Stress Score: 2 Summed Rest Score: 0 Summed Difference Score: 2 PERFUSION FINDINGS Small area of persistently decreased tracer uptake noted in basal anterior wall suggestive of artifact. Medium-sized area of persistently decreased tracer uptake noted in basal to distal inferior and basal inferolateral wall suggestive of old myocardial infarction versus artifact. FUNCTIONAL RESULTS (calculated via Gated SPECT) Stress Image LV EF (%): 61 Stress EDV (mL):108 TID: 1.01 Stress ESV (mL):42 Rest Image LV EF (%): 61 FUNCTIONAL FINDINGS: There is normal left ventricular systolic function. IMPRESSIONS This study is negative for ischemia. EKG segment will be survey recommended separately. oWody Singh MD (Electronically Signed) Final Date: 26 November 2020 12:51 S
--- NOTE | 2020-11-26 06:05 | ECG_ITS ---
[facility] Test Date: 2020-11-26 Pat Name: Jeremie Alexander Department: Room: 112 Gender: Male Office Clerk Assistant: Jasmin Elgin : 1960 Requested By: Lane Davison Order Number: [id number] Lucinda MD: JUANCARLOS GARCIA Interpretive Statements NAME OF STUDY: LEXISCAN SESTAMIBI STRESS TEST INDICATION: Chest Pain NOTE: Please note that this is the electrocardiogram portion of the Lexiscan/Sestamibi stress test. The perfusion scan will be documented separately. DATA: Baseline heart rate was 58 beats per minute. Baseline blood pressure was 135/53 millimeters of mercury. Target heart rate was 161 . Maximum heart rate achieved was 75. which was 46 % of the predicted target heart rate. Maximum blood pressure was 143/72 millimeters of mercury. The reason for ending the test was completion of the protocol. The patient did not experience any symptoms. ELECTROCARDIOGRAM: BASELINE: Sinus bradycardia. Normal axis. Interventricular conduction delay, otherwise, no ST-T changes suggestive of ischemia noted. No arrhythmia noted. EXERCISE: After Lexiscan injection, no ST-T changes suggestive of ischemic noted. No arrhythmia noted. CONCLUSION: Please note due to baseline abnormality of the EKG specificity and sensitivity of the EKG portion of LexiScan MIBI stress test will be low 1. EKG not suggestive of ischemia 2. Lexiscan injection unremarkable. 3. Perfusion scan will be documented separately. Electronically Signed On 12-24-2020 19:18:43 CDT by JUANCARLOS GARCIA [id number]
[2020-11-26 06:50] LABS: Glucose Point of Care 93 mg/dL (70-110)
--- NOTE | 2020-11-26 07:31 | PC.NURSE ---
Patient to nuclear medicine for stress test at 0720.
[2020-11-26] MEDS: regadenoson 0.4 Mg/5 ml Syringe IVP (07:58)
[2020-11-26] MEDS: apixaban 5 mg Tablet PO (09:47)
[2020-11-26] MEDS: buPROPion SR (12 HR) 100 mg Tablet PO (09:47)
[2020-11-26] MEDS: tamsulosin 0.4 mg Capsule PO (09:47)
[2020-11-26] MEDS: desvenlafaxine 50 mg Tablet PO (09:47)
[2020-11-26] MEDS: isosorbide mononitrate ER 30 mg Tablet PO (09:47)
[2020-11-26] MEDS: ranolazine (12HR) 500 mg Tablet PO (09:47)
[2020-11-26] MEDS: amiodarone 200 mg Tablet PO (09:47)
[2020-11-26] MEDS: clopidogrel 75 mg Tablet PO (09:47)
[2020-11-26] MEDS: metoprolol tartrate 25 mg Tablet PO (09:47)
[2020-11-26] MEDS: lisinopril 20 mg Tablet PO (09:47)
[2020-11-26] MEDS: atorvastatin 40 mg Tablet 80 MG PO (09:47)
[2020-11-26] MEDS: famotidine 20 mg Tablet PO (09:47)
[2020-11-26] MEDS: morphine IR 15 mg Tablet PO (09:48)
--- NOTE | 2020-11-26 09:52 | PC.SOCIAL ---
*IMM UPDATE* Operators School Manager gave patient IMM update. Provided him copy of pg 2. Verbalized understanding 11/26/20 @ 0693 Initialed,dated, timed and placed in chart.
[2020-11-26 10:19] LABS: Glucose Point of Care 264 mg/dL (70-110)
[2020-11-26 11:29] LABS: Glucose Point of Care 139 mg/dL (70-110)
--- NOTE | 2020-11-26 15:05 | P.DS_ITS ---
Discharge Providers Date of Admission: 11/23/20 19:16 Date of Discharge: November 26, 2020 Attending Provider at Admission: Woody Inman MD Attending Provider at Discharge: Lane Davison MD Primary Care Provider: Livia Ridley MD Diagnoses at Discharge Discharge Diagnosis (1) Atypical chest pain: Status: Acute Reason for Visit Reason for Visit: CHEST PAIN Hospital Course Hospital Course Jeremie Alexander is a 60 year old male who has established history of coronary disease status post 9 stents, pacemaker for sick sinus syndrome, atrial fibrillation chronic anticoagulation with Eliquis, depression presented today with chief complaint of left-sided chest discomfort. Patient is stating that his symptoms started at 10 AM, he is describing his symptoms as dull left-sided pain which she is able to pinpoint, it gets worse on taking deep breath, no vomiting, diaphoresis however endorsing shortness of breath and nausea, this pain was radiating towards his left shoulder and neck. He stating that this pain was similar to the one when he had stent placed. When he took nitroglycerin it did not relieve his chest discomfort. He considers himself fairly active. Does not smoke or drink alcohol. Diagnostics in the ER revealed normal EKG no significant ischemia or infarct changes, troponin not remarkably high, he is still complaining of chest discomfort as dull and constant Chest x-ray unremarkable, no electrolyte abnormality PE ruled out, calcium oxalate crystals urine. Patient is under the hospital for further monitoring and evaluation of atypical chest pain. Because of his significant cardiac history he underwent stress test which was negative for any active ischemia. During hospitalization patient was found to have mildly elevated liver enzymes for which he has been advised to follow-up with his primary care provider within next 1 week for repeat CMP and a possible liver ultrasound. His hospital stay was unremarkable other than mildly elevated blood pressures for which his antihypertensives were adjusted. Blood work revealed a low HbA1c and a normal lipid panel for which his Metformin was stopped with advised to recheck HbA1c in 6 months. He has been discharged in hemodynamically stable condition. Physical Exam Narrative: EXAM NARRATIVE: General: No acute distress, AO x3, morbidly obese HEENT: PERRLA, pupils bilaterally equal and reactive Chest: Normal vesicular breath sounds, no added sounds, equal good air entry bilaterally CVS: S1-S2 regular, no murmurs, no tachycardia, no gallops, no rubs Abdomen: Soft, nontender, no organomegaly, bowel sounds present Neuro: No focal deficits, no facial deformity, AO x3, power 5/5 in all limbs Discharge Data Data Completed and Pending: Completed Studies During Hospitalization Category Date Time Status CT chest wo con 7 1250 Routine Cat Scan 11/24/20 20:[address] MIBI [Sestamibi Stress Test Reque st Exams 11/26/20 06:05 Draft ] Routine XR chest 1V mariusz ble [id number] Stat Exams 11/23/20 14:47 Completed NM myocardial per fusion stress rest [NM jonas perf SPEC T Nuc Med 11/26/20 06:00 Completed r/s* [id number]] Routi ne CV echo complete* [id number] Routine Ultrasound 11/24/20 20:02 Completed Pending at discharge Category Date Time Status Sestamibi Stress Test Request Routi ne Exams 11/25/20 08:00 Stop Req Labs from last 24 hours 11/26/20 11/26/20 11/26/20 11:24 10:09 06:47 POC Glucose 139 H 264 H 93 Estimat Average Gl ucose Hemoglobin A1c Triglycerides Cholesterol LDL Cholesterol, C alc Total VLDL Cholest nii HDL Cholesterol Cholesterol/HDL Ra hebert 11/26/20 11/25/20 11/25/20 04:05 20:27 15:55 POC Glucose 98 157 H Estimat Average Gl ucose Hemoglobin A1c Triglycerides 152 H Cholesterol 113 LDL Cholesterol, C alc 51 Total VLDL Cholest nii 30 HDL Cholesterol 32 L Cholesterol/HDL Ra hebert 3.53 11/25/20 13:40 POC Glucose Estimat Average Gl ucose 105 Hemoglobin A1c 5.3 Triglycerides Cholesterol LDL Cholesterol, C alc Total VLDL Cholest nii HDL Cholesterol Cholesterol/HDL Ra hebert Addt'l Data from Hospital Stay: Cardiac stress test PERFUSION FINDINGS Small area of persistently decreased tracer uptake noted in basal anterior wall suggestive of artifact. Medium-sized area of persistently decreased tracer uptake noted in basal to distal inferior and basal inferolateral wall suggestive of old myocardial infarction versus artifact. FUNCTIONAL RESULTS (calculated via Gated SPECT) Stress Image LV EF (%): 61 Stress EDV (mL):108 TID: 1.01 Stress ESV (mL):42 Rest Image LV EF (%): 61 FUNCTIONAL FINDINGS: There is normal left ventricular systolic function. IMPRESSIONS This study is negative for ischemia. EKG segment will be survey recommended separately. Woody Singh MD (Electronically Signed) Final Date: 26 November 2020 12:51 Vitals: Last Vital Signs Temp 98.0 F 11/26/20 14:37 Pulse 62 11/26/20 14:37 Resp 26 H 11/26/20 14:37 BP 144/73 11/26/20 14:37 Pulse Ox 93 11/26/20 14:37 Discharge Plan Discharge Patient Disposition: Home Condition: Stable Prescriptions: New metoprolol tartrate 25 mg Tablet 25 mg PO BID@0900,2100 Qty: 60 RF: 0 Continued Aricept 10 mg Tablet 30 mg PO DAILY RF: 0 famotidine 40 mg Tablet 20 mg PO DAILY RF: 0 bupropion HCl 100 mg Tablet Sustained-Release 12 Hr 100 mg PO QAM RF: 0 cyproheptadine 4 mg Tablet 4 mg PO BEDTIME RF: 0 temazepam 15 mg Capsule 15 mg PO BEDTIME RF: 0 tamsulosin 0.4 mg Capsule 0.4 mg PO DAILY RF: 0 ferrous sulfate 325 mg (65 mg iron) Tablet 325 mg PO BID RF: 0 mirtazapine 45 mg Tablet 45 mg PO BEDTIME RF: 0 ranolazine 500 mg Tablet Extended Release 12 Hr 500 mg PO BID RF: 0 desvenlafaxine succinate 50 mg Tablet Extended Release 24 Hr 50 mg PO DAILY RF: 0 Eliquis 5 mg Tablet 5 mg PO BID RF: 0 amiodarone 200 mg Tablet 200 mg PO BID RF: 0 lisinopril 20 mg Tablet 20 mg PO DAILY RF: 0 isosorbide mononitrate 30 mg Tablet Extended Release 24 Hr 30 mg PO BID RF: 0 Plavix 75 mg Tablet 75 mg PO DAILY RF: 0 Fish Oil 1,000 mg Capsule 1 cap PO DAILY RF: 0 Crestor 20 mg Tablet 20 mg PO DAILY RF: 0 Sentry Senior 500-300-250 mcg Tablet 1 tab PO DAILY RF: 0 Discontinued metformin 500 mg Tablet Extended Release 24 Hr 500 mg PO DAILY RF: 0 Discharge Orders: Discharge Order (Routine); Ordered 11/26/20 Ordered By: Lane Davison Other Ambulatory Orders: [place] liver [id number] (Routine) Timeframe: 1 Week Facility: [facility] - Location: [facility]iology [facility] Ordered By: Lane Davison Referrals: Livia Ridley MD [Primary Care Provider] - 7-10 days Discharge Diet: Cardiac and Diabetic Discharge Activity: Resume usual activity Patient Instructions: Opioid Safety Activity Restrictions/Additional Instructions: Follow-up with your primary care provider within next 7 to 10 days for repeat CMP. You should get right upper quadrant ultrasound and CT abdomen for evaluation of mild transaminitis. Discharge Attestations Time Spent in Discharge Care*: greater than 30 min Specific Discharge Activities: educating patient, discussing with pcp/other providers, discussing with case assistant/social workers/dc planners, documenting/other paperwork and evaluating patient/reviewing data Status at Discharge: Cognitive status at discharge: cognitively intact , Behavioral status at discharge: cooperative , Functional status at discharge: independent ambulation Overall status at discharge: patient is back to baseline Quality Metrics Clinical Quality Measures During this hospital stay, did patient experience: None Coding Level of Care Code Acute Chg FW DC note Diagnoses Atypical chest pain R07.89
== END 2020-11-26 17:30 | disposition home or self-care (01) ==
LOC: ER 19:19 → CSU 19:28
PROVIDERS: Internal Medicine; Admitting Provider Internal Medicine; Emergency Provider Family Medicine; PCP Emergency Medicine; Visit Provider Student in an Organized Health Care Education/Training Program
DX: R07.89 Other chest pain (principal); I25.10 Atherosclerotic heart disease of native coronary artery without angina pectoris; Z95.5 Presence of coronary angioplasty implant and graft; Z95.0 Presence of cardiac pacemaker; Z79.01 Long term (current) use of anticoagulants; E11.9 Type 2 diabetes mellitus without complications; F32.9 Major depressive disorder, single episode, unspecified; R74.01 Elevation of levels of liver transaminase levels
CPT/HCPCS: 36415; 36416; 71045; 71250; 78452; 80053; 80061; 81001; 82962; 83036; 83540; 83550; 83735; 83880; 84484; 85025; 85378; 93005; 93017; 93306; 96372; 96374; 96375; 99285; A9500; G0378; J1815; J2270; J2405; J2785

== ENCOUNTER 2020-11-28 17:43 | Inpatient (IN) | payer MEDICARE, MEDICAID, SELFPAY ==
[2020-11-28 17:47] VITALS: BP 178/108; PULSE 66; RESP 18; TEMP 36.6; O2SAT 99; BMI 45.7
--- NOTE | 2020-11-28 17:56 | ECG_ITS ---
[facility] Test Date: 2020-11-28 Pat Name: Jeremie Alexander Department: Room: Gender: Male Nursing Instructor: : 1960 Requested By: Moustapha Brown Order Number: [id number] Lucinda MD: Carmina Wallace M.D. Measurements Intervals Dora Rate: 68 P: 58 OK: 152 QRS: 7 QRSD: 101 T: 2 QT: 297 QTc: 317 Interpretive Statements SINUS RHYTHM POSSIBLE RIGHT VENTRICULAR CONDUCTION DELAY [RSR (QR) IN V1/V2] NONSPECIFIC T-WAVE ABNORMALITY Compared to ECG 11/24/2020 02:04:33 No significant changes Electronically Signed On 11-28-2020 21:49:17 CDT by Carmina Wallace M.D. [id number]
[2020-11-28 18:31] LABS: Basophils % 0.4 %; Eosinophils # 0.1 10^3/uL (0.0-0.8); Eosinophils % 1.1 %; Hematocrit 42.5 % (42.0-52.0); Hemoglobin 13.6 g/dL (11.7-16.6); Lymphocytes # 1.8 10^3/uL (0.8-4.8); Lymphocytes % 31.9 %; Mean Corpuscular Hemoglobin 29.1 pg (28.0-34.0); Mean Corpuscular Volume 90.8 fL (80-94); Mean Platelet Volume 10.5 fL (7.4-10.4); Monocytes # 0.6 10^3/uL (0.2-0.9); Monocytes % 10.6 %; Neutrophils # 3.16 10^3/uL (1.8-7.7); Neutrophils % 55.6 %; Nucleated Red Blood Cells % 0 %; Platelet Count 236 10^3/cmm (130-400); Red Blood Count 4.68 10^6/uL (4.1-5.3); Red Cell Distribution Width 18.6 % (12.1-15.1); White Blood Count 5.7 10^3/uL (4.0-10.0)
[2020-11-28 18:50] LABS: Alanine Aminotransferase 80 U/L (0-41); Alkaline Phosphatase 164 IU/L (40-130); Anion Gap 11.6 (5-19); Aspartate Amino Transferase 35 U/L (0-40); Blood Urea Nitrogen 7 mg/dL (6-20); Calcium 8.5 mg/dL (8.5-10.5); Carbon Dioxide 27 mmol/L (22-29); Chloride 106 mmol/L (98-107); Creatinine Clr Calc Pharmacy 113.8371; Globulin 2.8 g/dL (1.3-4.6); Glomerular Filtration Rate 98.9 mL/min (90-130); Glucose 109 mg/dL (65-115); Osmolality Calculated 291 mOsm/kg (285-295); Potassium 3.6 mmol/L (3.5-5.1); Sodium 141 mmol/L (136-145); Total Bilirubin 0.2 mg/dL (0.15-1.2); Total Protein 6.8 g/dL (6.6-8.7)
[2020-11-28 19:00] LABS: Acetaminophen < 5.0 ug/mL (10-30); Salicylate < 0.3 mg/dL (3-10)
[2020-11-28 19:02] LABS: Amphetamines Screen Urine Negative (Negative); Barbiturates Screen Urine Negative (Negative); Benzodiazepines Screen Urine Positive (Negative); Cocaine Screen Urine Negative (Negative); Opiate Screen Urine Positive (Negative); PCP Screen Urine Negative (Negative); THC Screen Urine Negative (Negative)
--- NOTE | 2020-11-28 19:21 | W.ED.PSYCH ---
HPI - Psych General: Chief Complaint: Psychiatric Symptoms Stated Complaint: SI Time Seen by Provider: 11/28/20 17:55 History of Present Illness: HPI Narrative: The patient is a 60-year-old male with past medical history depression who comes to the ER complaining of suicidal ideation. He plans to take his sleeping medicines in an attempt to kill himself. He was admitted less than a week ago for chest pain and had a negative stress test. Denies any chest pain, shortness of breath at this time. MD complaint: suicidal ideation and feels depressed Duration: constant History of same: Yes Associated psychiatric symptoms: depression and suicidal ideation Associated symptoms: Reports depression and suicidal ideation; Deny homicidal ideation Review of Systems General: Reports: 10 or more systems reviewed and unremarkable except in HPI and below Const: Denies: fatigue Eyes: Denies: change in vision, blurry vision or eye redness ENMT: Denies: throat pain, swelling of lips/tongue, ear or mastoid pain or nasal congestion Card: Denies: chest pain, palpitations, irregular heart rhythm, edema, dyspnea on exertion or orthopnea Resp: Denies: dyspnea, productive cough or non-productive cough GI: Denies: abdominal pain, diarrhea or GI cramping : Denies: flank pain, urinary frequency or urinary urgency Musc: Denies: neck pain, back pain, extremity pain, joint pain, joint redness, limited range of motion or muscle weakness Skin/Breast: Denies: rash, pruritus, erythema, skin pain or skin tenderness Neuro: Denies: headache(s), numbness in extremities, weakness in extremities, sensory changes, difficulty walking, dizziness, confusion or Slurred speech present Psych: Reports: depression and suicidal ideation; Denies: anxiety or homicidal ideation Endo: Denies: polyuria All/Imm: Denies: urticaria, throat swelling or tongue swelling PFSH ED PFSH: Medical History (Updated 11/28/20 @ 19:24 by Moutsapha Brown MD) Afib CAD (coronary artery disease) Chronic anticoagulation Diabetes HTN (hypertension) Pacemaker SSS (sick sinus syndrome) Transaminitis Surgical History Gastric banding status S/P placement of cardiac pacemaker Status post cholecystectomy Family History Father CAD (coronary artery disease) Mother Cancer Social History Smoking and tobacco status: never smoked Alcohol intake: never Household members: spouse Housing: House Physical Exam Const: COMMON NORMALS: no acute distress, average body habitus, patient oriented x3, no limitations, healthy appearing, alert and well nourished GENERAL APPEARANCE: cooperative, comfortable and well developed ORIENTATION/CONSCIOUSNESS: Yes awake, Yes oriented to person, Yes oriented to place and Yes oriented to time HENMT: COMMON NORMALS: normocephalic, external ears normal and Normal external nose present HEAD & SCALP: normal to inspection and normocephalic NOSE: Normal external nose present EXTERNAL EAR: Yes external ears normal MOUTH: Normal oral and palatal mucosa present THROAT: posterior oropharynx normal Eye: COMMON NORMALS: Equal, round and reactive pupils present and EOMs intact bilaterally GENERAL EYE: appearance normal, both eyes and all related structures PUPIL: Yes Equal, round and reactive pupils present Neck/C-Spine: COMMON NORMALS: full ROM, no lymphadenopathy, no meningeal signs and no JVD GENERAL: Yes normal visual inspection Lymph: LYMPHATIC: no lymphadenopathy noted Chest: COMMONS NORMALS: normal inspection of the chest and normal palpation of entire chest wall Resp: COMMON NORMALS: normal respiratory effort, No retractions, No use of accessory muscles, clear to auscultation bilaterally and percussion normal EFFORT & INSPECTION: Yes able to speak in complete sentences AUSCULTATION: clear to auscultation bilaterally PERCUSSION: percussion normal Cardio: COMMON NORMALS: no JVD, regular rate, regular rhythm, S1 normal heart sound present, S2 normal heart sound present and Peripheral pulses 2+ throughout RATE: regular rate RHYTHM: regular rhythm HEART SOUNDS: S1 normal heart sound present and S2 normal heart sound present PERIPHERAL PULSES: Peripheral pulses 2+ throughout GI: COMMON NORMALS: Normal to inspection, nondistended, normoactive bowel sounds present, Soft to palpation, non-tender and no masses INSPECTION: Yes normal to inspection PALPATION: Yes Soft to palpation : COMMON NORMALS: Yes no CVA tenderness BLADDER/KIDNEY EXAM: Yes no CVA tenderness Back/Pelvis: COMMON NORMALS: no CVA tenderness, thoracic and lumbar spine normal to inspection, no thoracic nor lumbar tenderness and thoraco-lumbar ROM normal Extremity: COMMON NORMALS: normal to inspection, full ROM, capillary refill normal, no joint enlargement and no pedal edema GENERAL: Yes normal exam except as noted Neuro: COMMON NORMALS: patient oriented x3, CN's II-XII intact bilaterally, moves all extremities, no focal motor deficits, no sensory deficits noted and gait normal SENSORIUM/ORIENTATION: Yes alert, Yes oriented to person, Yes oriented to place and Yes oriented to time MENINGEAL SIGNS: Yes no meningeal signs Psych: COMMON NORMALS: mental status grossly normal, Normal thought process present, cooperative and speech normal ATTITUDE: Yes calm SPEECH: Yes normal speech MOOD & AFFECT: Yes depressed mood THOUGHT PROCESS: Normal thought process present THOUGHT CONTENT: Yes Suicidality present INSIGHT: Poor insight present (Psych) JUDGEMENT: Poor judgement present (Psych) Skin: COMMON NORMALS: no rashes or lesions noted GENERAL SKIN EXAM: no rashes or lesions noted MDM - Psych MDM Narrative: Medical decision making narrative: Patient is suicidal. He plans to take his sleeping medicines in an attempt to kill himself. Discussed with Dr. Matamoros who accepts for admission. He denies chest pain and shortness of breath. Less than a week ago he had a negative stress test Lab Data: Labs: Lab Results 11/28/20 11/28/20 11/28/20 Range/Units 18:00 18:20 18:20 WBC 5.7 (4.0-10.0) 10^3/ uL RBC 4.68 (4.1-5.3) 10^6/u L Hgb 13.6 (11.7-16.6) g/dL Hct 42.5 (42.0-52.0) % MCV 90.8 (80-94) fL MCH 29.1 (28.0-34.0) pg MCHC 32.0 (30.0-36.0) g/dL RDW 18.6 H (12.1-15.1) % Plt Count 236 (130-400) 10^3/c mm MPV 10.5 H (7.4-10.4) fL Neut % (Auto) 55.6 % Lymph % (Auto) 31.9 % [place] % (Auto) 10.6 % Eos % (Auto) 1.1 % Baso % (Auto) 0.4 % Neut # (Auto) 3.16 (1.8-7.7) 10^3/u L Lymph # (Auto) 1.8 (0.8-4.8) 10^3/u L [place] # (Auto) 0.6 (0.2-0.9) 10^3/u L Eos # (Auto) 0.1 (0.0-0.8) 10^3/u L Baso # (Auto) 0.0 (0.0-0.1) 10^3/u L Nucleated RBC % (a uto) 0 % Nucleated RBCs # 0.0 /100WBC Sodium 141 (136-145) mmol/L Potassium 3.6 (3.5-5.1) mmol/L Chloride 106 (98-107) mmol/L Carbon Dioxide 27 (22-29) mmol/L Anion Gap 11.6 (5-19) BUN 7 (6-20) mg/dL Creatinine 0.8 (0.7-1.2) mg/dL GFR Calculation 98.9 (90-130) mL/min Glucose 109 (65-115) mg/dL Calculated Osmolal ity 291 (285-295) mOsm/k g Calcium 8.5 (8.5-10.5) mg/dL Total Bilirubin 0.2 (0.15-1.2) mg/dL AST 35 (0-40) U/L ALT 80 H (0-41) U/L Alkaline Phosphata se 164 H (40-130) IU/L Total Protein 6.8 (6.6-8.7) g/dL Albumin 4.0 (3.5-5.2) g/dL Globulin 2.8 (1.3-4.6) g/dL Salicylates < 0.3 L (3-10) mg/dL Urine Opiates Scre en Positive H (Negative) ng/mL Acetaminophen < 5.0 L (10-30) ug/mL Ur Barbiturates Sc reen Negative (Negative) ng/mL Ur Phencyclidine S crn Negative (Negative) ng/mL Ur Amphetamines Sc reen Negative (Negative) ng/mL U Benzodiazepines Scrn Positive H (Negative) ng/mL Urine Cocaine Scre en Negative (Negative) ng/mL U Marijuana (THC) Screen Negative (Negative) ng/mL Discharge Plan Discharge Patient Disposition: Admitted As Inpatient Clinical Impression: Suicidal ideation Condition: Stable Coding Level of Care Code ED Family Support Specialist for Anabela Clark
[2020-11-28 19:25] LABS: Add Urine Microscopic? YES; Bacteria Urine TRACE /hpf; Bilirubin Urine Neg (Negative); Blood Urine Neg (Negative); Glucose Urine UA Norm (Normal); Ketones Urine 1+ (Negative); Leukocyte Esterase Urine Negative (Negative); Nitrate Urine Negative (Negative); Protein Urine Trace (Negative); RBC Urine 0-4 /hpf (0-2); Specific Gravity, Urine 1.015 (1.005-1.030); Squamous Epithelial Cell Urine 0-4 /hpf (0-5); Urine Appearance Clear (CLEAR); Urine Color Yellow (Yellow); Urobilinogen Urine 1 mg/dL (Negative); WBC Urine 0-4 /hpf (0-5); pH Urine 5 (5-7)
[2020-11-28 19:26] LABS: Mucus Urine 2+ /hpf
--- NOTE | 2020-11-28 19:41 | PC.NURSE ---
Patient resting quietly in bed at this time with spouse at bedside. 1:1 sitter present at bedside. Patient denies any needs at this time. Patient instructed to let the sitter or myself know if he needs anything at all.
[2020-11-28 21:06] VITALS: BP 175/83; PULSE 63; RESP 18; TEMP 36.4; O2SAT 98
[2020-11-28 21:21] VITALS: BP 175/83; PULSE 63; RESP 18; TEMP 36.4; O2SAT 98
[2020-11-29] MEDS: temazepam 15 mg Capsule PO ×2 (00:06→19:37)
[2020-11-29] MEDS: amiodarone 200 mg Tablet PO ×3 (00:07→18:40)
[2020-11-29] MEDS: isosorbide mononitrate ER 30 mg Tablet PO ×3 (00:07→18:41)
[2020-11-29] MEDS: ranolazine (12HR) 500 mg Tablet PO ×3 (00:07→18:40)
[2020-11-29] MEDS: apixaban 5 mg Tablet PO ×3 (00:07→18:41)
--- NOTE | 2020-11-29 00:58 | PC.NURSE ---
Skin assessment revealed a bruise on mod right abdomen. The patient said he bruises easily secondary to blood thinners. The patient had 3 to 4 oozing scrapes on his right arm that he attributed to the blood thinners.
[2020-11-29 06:00] VITALS: BP 142/65; PULSE 76; RESP 17; TEMP 36.9; O2SAT 94
[2020-11-29] MEDS: omega-3 fatty acids 1,000 mg Capsule 1000 MG PO (08:39)
[2020-11-29] MEDS: tamsulosin 0.4 mg Capsule PO (08:40)
[2020-11-29] MEDS: clopidogrel 75 mg Tablet PO (08:40)
[2020-11-29] MEDS: ARIPiprazole 30 mg Tablet PO (08:40)
[2020-11-29] MEDS: buPROPion SR (12 HR) 100 mg Tablet PO (08:40)
[2020-11-29] MEDS: desvenlafaxine 50 mg Tablet PO (08:40)
[2020-11-29] MEDS: lisinopril 20 mg Tablet PO (08:40)
[2020-11-29] MEDS: famotidine 20 mg Tablet PO (08:40)
[2020-11-29] MEDS: atorvastatin 40 mg Tablet 80 MG PO (08:41)
[2020-11-29] MEDS: ferrous sulfate EC 325 mg Tablet PO ×2 (08:41→18:40)
[2020-11-29] MEDS: TRAMadol 50 mg Tablet PO ×2 (10:39→17:06)
--- NOTE | 2020-11-29 10:58 | PC.NURSE ---
pt requested pain medication for back pain, pt states that he takes at home. pt pain level at 8/10 on pain scale. administered prn tramadol 50mg, will monitor for effectiveness
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
[2020-11-29 14:00] VITALS: BP 147/81; PULSE 70; RESP 16; TEMP 36.7; O2SAT 97
--- NOTE | 2020-11-29 17:06 | PC.NURSE ---
PRN Tramadol Patient came to nurse's station requesting his Tramadol again. Patient stated he was having pain in his right shoulder 5/10. Medication given. Will monitor for effectiveness.
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
[2020-11-29 19:36] VITALS: BP 157/71; PULSE 62; RESP 17; TEMP 36.8; O2SAT 95
[2020-11-29] MEDS: buPROPion SR (12 HR) 100 mg Tablet 150 MG PO (19:37)
[2020-11-29] MEDS: mirtazapine 15 mg Tablet 45 MG PO (19:37)
[2020-11-30 06:00] VITALS: BP 148/72; PULSE 69; RESP 17; TEMP 36.7; O2SAT 96
[2020-11-30] MEDS: omega-3 fatty acids 1,000 mg Capsule 1000 MG PO (08:46)
[2020-11-30] MEDS: ranolazine (12HR) 500 mg Tablet PO ×2 (08:46→17:34)
[2020-11-30] MEDS: famotidine 20 mg Tablet PO (08:46)
[2020-11-30] MEDS: amiodarone 200 mg Tablet PO ×2 (08:46→17:34)
[2020-11-30] MEDS: apixaban 5 mg Tablet PO ×2 (08:46→17:34)
[2020-11-30] MEDS: ARIPiprazole 30 mg Tablet PO (08:46)
[2020-11-30] MEDS: isosorbide mononitrate ER 30 mg Tablet PO ×2 (08:47→17:34)
[2020-11-30] MEDS: tamsulosin 0.4 mg Capsule PO (08:47)
[2020-11-30] MEDS: atorvastatin 40 mg Tablet 80 MG PO (08:47)
[2020-11-30] MEDS: desvenlafaxine 50 mg Tablet PO (08:47)
[2020-11-30] MEDS: ferrous sulfate EC 325 mg Tablet PO ×2 (08:47→17:34)
[2020-11-30] MEDS: lisinopril 20 mg Tablet PO (08:47)
[2020-11-30] MEDS: clopidogrel 75 mg Tablet PO (08:47)
[2020-11-30] MEDS: buPROPion SR (12 HR) 100 mg Tablet 150 MG PO ×2 (08:48→20:36)
[2020-11-30] MEDS: TRAMadol 50 mg Tablet PO ×2 (13:57→20:35)
[2020-11-30 14:00] VITALS: BP 159/82; PULSE 68; RESP 18; TEMP 36; O2SAT 95
--- NOTE | 2020-11-30 18:42 | P.PN_ITS ---
Subjective NPU Subjective: Interval history: Jeremie presents today reporting that he is doing better. He is working on a letter to his parents to get out his emotions that he feels some catharsis already. He reports that he is eating okay and sleeping a little better but denies any new or pressing issues. Mental Status Exam MSE Comments: This is a morbidly obese white male in hospital scrubs with limited grooming and eye contact. No abnormal movements except for psychomotor retardation. Cooperative with exam in mild distress. Speech was decreased rate and volume. Mood described as a little better, affect csubdued. Thought process organized. Thought content: Patient with lessening suicidal ideation but denied homicidal ideation, there were no delusions reported or noted, he denied any auditory or visual hallucinations. Attention hydration were intact and memory appeared reliable but none were formally tested. He is alert and oriented x3. Insight and judgment were fair and impulse control was limited. Vitals/I&O/Wt Last Vital Signs Temp 98.2 F 11/30/20 20:11 Pulse 65 11/30/20 20:11 Resp 18 11/30/20 20:11 BP 156/80 11/30/20 20:11 Pulse Ox 94 11/30/20 20:11 Weight last 48 hrs Weight 117.027 kg Data NPU : 11/28/20 18:20 11/28/20 18:20 A&P Additional A&P Information (1) Suicidal ideation: (2) Transaminitis: (3) History of posttraumatic stress disorder (PTSD): (4) Major depressive disorder, recurrent severe without psychotic features: Additional A&P Information This is a 60-year-old white male with a long history of mental health treatment with past trauma who presents with depression and suicidality open to medication adjustments. 1. Continue current medication. 2. Continue every 15 minute checks for safety. 3. Encourage individual, group and milieu therapies. Involuntary Hold Information 96 Hour Hold: 96 Hour Involuntary Admission: No Attestations NPU Medical Necessity Statement*: Inpatient hospitalization is medically necessary and the clinically appropriate intervention at this time. We will monitor medications and make changes as indicated. Likely length of stay 2-4 days. Coding Level of Care Code Acute Machine Operator Slitter Technician for Anabela Clark
[2020-11-30 20:11] VITALS: BP 156/80; PULSE 65; RESP 18; TEMP 36.8; O2SAT 94
[2020-11-30] MEDS: temazepam 15 mg Capsule PO (20:37)
[2020-11-30] MEDS: mirtazapine 15 mg Tablet 45 MG PO (20:37)
[2020-12-01] MEDS: TRAMadol 50 mg Tablet PO ×2 (05:39→18:05)
[2020-12-01 06:00] VITALS: BP 164/87; PULSE 79; RESP 17; TEMP 36.8; O2SAT 98
[2020-12-01] MEDS: clopidogrel 75 mg Tablet PO (08:19)
[2020-12-01] MEDS: tamsulosin 0.4 mg Capsule PO (08:19)
[2020-12-01] MEDS: ARIPiprazole 30 mg Tablet PO (08:19)
[2020-12-01] MEDS: ranolazine (12HR) 500 mg Tablet PO ×2 (08:19→18:04)
[2020-12-01] MEDS: atorvastatin 40 mg Tablet 80 MG PO (08:20)
[2020-12-01] MEDS: lisinopril 20 mg Tablet PO (08:20)
[2020-12-01] MEDS: isosorbide mononitrate ER 30 mg Tablet PO ×2 (08:20→18:04)
[2020-12-01] MEDS: apixaban 5 mg Tablet PO ×2 (08:20→18:05)
[2020-12-01] MEDS: amiodarone 200 mg Tablet PO ×2 (08:20→18:04)
[2020-12-01] MEDS: famotidine 20 mg Tablet PO (08:20)
[2020-12-01] MEDS: omega-3 fatty acids 1,000 mg Capsule 1000 MG PO (08:20)
[2020-12-01] MEDS: desvenlafaxine 50 mg Tablet PO (08:20)
[2020-12-01] MEDS: buPROPion SR (12 HR) 100 mg Tablet 150 MG PO ×2 (08:20→19:58)
[2020-12-01] MEDS: ferrous sulfate EC 325 mg Tablet PO ×2 (08:21→18:05)
--- NOTE | 2020-12-01 10:36 | PC.NUTR ---
NUTR WT ASSESSMENT: Pt ht is 64 , wt 258 lbs and BMI of 45.7 kg/m2 indicates MORBID OBESITY.
[2020-12-01 14:00] VITALS: BP 150/82; PULSE 84; RESP 20; TEMP 36.9; O2SAT 94
--- NOTE | 2020-12-01 15:46 | P.PN_ITS ---
Subjective NPU Subjective: Interval history: Jeremie presents today reporting that he is feeling better with the Wellbutrin he does not feel any other changes need be made. Reports that he is eating sleeping fine and we discussed the possibility of discharge tomorrow. Mental Status Exam MSE Comments: This is a morbidly obese white male in hospital scrubs with improving grooming and eye contact. No abnormal movements except for mild psychomotor retardation. Cooperative with exam in no acute distress. Speech was decreased rate and normal volume. Mood described as getting better, affect less subdued. Thought process organized. Thought content: Patient denied suicidal or homicidal ideation, there were no delusions reported or noted, he denied any auditory or visual hallucinations. Attention hydration were intact and memory appeared reliable but none were formally tested. He is alert and oriented x3. Insight and judgment were fair and impulse control was limited, but improving. Vitals/I&O/Wt Last Vital Signs Temp 98.2 F 12/01/20 06:00 Pulse 79 12/01/20 06:00 Resp 17 12/01/20 06:00 BP 164/87 12/01/20 06:00 Pulse Ox 98 12/01/20 06:00 Weight last 48 hrs Weight 117.027 kg Data NPU : 11/28/20 18:20 11/28/20 18:20 A&P Additional A&P Information (1) Suicidal ideation: (2) Transaminitis: (3) History of posttraumatic stress disorder (PTSD): (4) Major depressive disorder, recurrent severe without psychotic features: Additional A&P Information This is a 60-year-old white male with a long history of mental health treatment with past trauma who presents with depression and suicidality open to medication adjustments. 1. Continue current medication. 2. Continue every 15 minute checks for safety. 3. Encourage individual, group and milieu therapies. 4. Likely discharge tomorrow Involuntary Hold Information 96 Hour Hold: 96 Hour Involuntary Admission: No Attestations NPU Medical Necessity Statement*: Inpatient hospitalization is medically necessary and the clinically appropriate intervention at this time. We will monitor medications and make changes as indicated. Likely length of stay 1-3 days. Coding Level of Care Code Acute [employer] for Anabela Clark
[2020-12-01] MEDS: temazepam 15 mg Capsule PO (19:58)
[2020-12-01] MEDS: mirtazapine 15 mg Tablet 45 MG PO (19:59)
[2020-12-01 21:52] VITALS: BP 162/84; PULSE 78; RESP 19; TEMP 37; O2SAT 96
[2020-12-01] MEDS: acetaminophen 325 mg Tablet 650 MG PO (22:32)
[2020-12-02 06:00] VITALS: BP 143/74; PULSE 68; RESP 17; TEMP 36.9; O2SAT 93
[2020-12-02] MEDS: TRAMadol 50 mg Tablet PO (06:35)
[2020-12-02] MEDS: buPROPion SR (12 HR) 100 mg Tablet 150 MG PO (08:29)
[2020-12-02] MEDS: desvenlafaxine 50 mg Tablet PO (08:30)
[2020-12-02] MEDS: ranolazine (12HR) 500 mg Tablet PO (08:30)
[2020-12-02] MEDS: ARIPiprazole 30 mg Tablet PO (08:30)
[2020-12-02] MEDS: omega-3 fatty acids 1,000 mg Capsule 1000 MG PO (08:30)
[2020-12-02] MEDS: lisinopril 20 mg Tablet PO (08:31)
[2020-12-02] MEDS: clopidogrel 75 mg Tablet PO (08:31)
[2020-12-02] MEDS: famotidine 20 mg Tablet PO (08:31)
[2020-12-02] MEDS: amiodarone 200 mg Tablet PO (08:31)
[2020-12-02] MEDS: ferrous sulfate EC 325 mg Tablet PO (08:31)
[2020-12-02] MEDS: isosorbide mononitrate ER 30 mg Tablet PO (08:31)
[2020-12-02] MEDS: apixaban 5 mg Tablet PO (08:32)
[2020-12-02] MEDS: tamsulosin 0.4 mg Capsule PO (08:32)
[2020-12-02] MEDS: atorvastatin 40 mg Tablet 80 MG PO (08:32)
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
[2020-12-02 13:23] VITALS: BP 143/74; PULSE 68; RESP 17; TEMP 36.9; O2SAT 93
--- NOTE | 2020-12-02 14:17 | PC.NURSE ---
DISCHARGE MEDICATION CALLED INTO [facility] IN [place], [place] PER PT REQUEST @ [phone]. SPOKE TO WAYLON WELLBUTRIN SR 150 MG PO BID, QTY #60 REFILL X1
== END 2020-12-02 13:32 | disposition home or self-care (01) | DRG 885 ==
LOC: ER 19:23 → NP 20:14
PROVIDERS: Admitting Provider Psychiatry & Neurology Psychiatry; Emergency Provider Family Medicine; PCP Emergency Medicine; Visit Provider Psychiatry & Neurology Psychiatry
DX: F33.2 Major depressive disorder, recurrent severe without psychotic features (principal); R45.851 Suicidal ideations; Z68.42 Body mass index [BMI] 45.0-49.9, adult; F10.11 Alcohol abuse, in remission; F12.11 Cannabis abuse, in remission; E66.01 Morbid (severe) obesity due to excess calories; I25.10 Atherosclerotic heart disease of native coronary artery without angina pectoris; E11.9 Type 2 diabetes mellitus without complications; I10 Essential (primary) hypertension; R74.01 Elevation of levels of liver transaminase levels; Z79.02 Long term (current) use of antithrombotics/antiplatelets; Z79.01 Long term (current) use of anticoagulants; Z95.0 Presence of cardiac pacemaker; Z98.84 Bariatric surgery status
CPT/HCPCS: 36415; 36416; 71250; 78452; 80053; 80061; 80306; 80307; 81001; 82962; 83036; 83540; 83550; 83735; 84484; 85025; 93005; 93017; 93306; 96372; 99285; A9500; G0378; J1815; J2785

== ENCOUNTER 2021-07-03 13:24 | Emergency (ER) | payer MEDICARE, MEDICAID, SELFPAY ==
--- NOTE | 2021-07-03 13:39 | ECG_ITS ---
[facility] Test Date: 2021-07-03 Pat Name: Jeremie Alexander Department: Room: Gender: Male Carpenter Form: : 1960 Requested By: Skylar Buckner Order Number: [id number] Reading MD: JUANCARLOS GARCIA Measurements Intervals [place] Rate: 64 P: 27 AK: 187 QRS: 0 QRSD: 106 T: -11 QT: 426 QTc: 443 Interpretive Statements ELECTRONIC ATRIAL PACEMAKER NONSPECIFIC T-WAVE ABNORMALITY ABNORMAL RHYTHM ECG Compared to ECG 11/28/2020 18:29:16 Sinus rhythm no longer present T-wave abnormality still present Electronically Signed On 07-04-2021 14:30:40 CREEL CLERK by JUANCARLOS GARCIA [email or web address] [id number]
[2021-07-03 13:45] VITALS: BP 112/64; PULSE 66; RESP 17; TEMP 37.2; O2SAT 99; BMI 42.0
--- NOTE | 2021-07-03 13:55 | W.ED.WEAKNES ---
HPI - Weakness General: Chief complaint: Dizziness Stated complaint: LOW BP, WEAKNESS Time Seen by Provider: 07/03/21 13:25 Source: patient, family and EMS Mode of arrival: EMS History of Present Illness: HPI Narrative: 60-year-old male has been having dizziness, generalized weakness, malaise, low blood pressure readings for several days, getting worse. Symptoms exacerbated by getting up and moving around, activity. He also had an episode of nausea vomiting this morning with epigastric and periumbilical abdominal pain. Has had several recent stumble/falls due to the dizziness when he tries to get up and walk around. Was seen in outside clinic yesterday, was found to be hypotensive. Initial BP by EMS was 80s over 60s, he was started on IV fluid bolus, after which started to improve. He did take all of his blood pressure medications this morning including Lasix, Norvasc, metoprolol, MD Complaint: generalized weakness, lack of energy and difficulty walking Onset (ago): day(s) Duration: progressively worsening Location: generalized Exacerbating factors: movement and exertion Associated symptoms: Reports easy bruising, nausea, syncope and vomiting; Denies chest pain, confusion, dysuria or headache(s) Review of Systems General: Reports: 10 or more systems reviewed and unremarkable except in HPI and below Const: Reports: fatigue and malaise; Denies: night sweats Eyes: Denies: change in vision or blurry vision Card: Reports: lightheadedness and syncope; Denies: chest pain, palpitations or irregular heart rhythm Resp: Denies: dyspnea, productive cough or non-productive cough GI: Reports: nausea and vomiting : Denies: difficulty urinating or dysuria Neuro: Reports: difficulty walking, frequent falls and dizziness; Denies: headache(s), confusion, Slurred speech present or seizure-like activity Phu/Lymph: Reports: easy bruising and easy bleeding PFSH ED PFSH: Medical History Afib CAD (coronary artery disease) Chronic anticoagulation Diabetes HTN (hypertension) Pacemaker SSS (sick sinus syndrome) Transaminitis Surgical History Gastric banding status S/P placement of cardiac pacemaker Status post cholecystectomy Family History Father CAD (coronary artery disease) Mother Cancer Social History Smoking and tobacco status: never smoked Alcohol intake: never Household members: spouse Housing: House Physical Exam Const: COMMON NORMALS: patient oriented x3 GENERAL APPEARANCE: cooperative, ill appearing and frail appearing NUTRITIONAL APPEARANCE: overweight HENMT: COMMON NORMALS: normocephalic and atraumatic HEAD & SCALP: normocephalic and atraumatic FACE & SINUS: normal facial exam and face symmetric Eye: COMMON NORMALS: Equal, round and reactive pupils present, EOMs intact bilaterally, conjunctivae normal and no scleral icterus CONJUNCTIVA: Yes conjunctivae normal PUPIL: Yes Equal, round and reactive pupils present Lymph: LYMPHATIC: no lymphadenopathy noted Resp: COMMON NORMALS: normal respiratory effort, No use of accessory muscles and clear to auscultation bilaterally AUSCULTATION: clear to auscultation bilaterally GI: COMMON NORMALS: Normal to inspection, nondistended, normoactive bowel sounds present and Soft to palpation INSPECTION: Yes abdominal distension and Yes central obesity PALPATION: Yes Soft to palpation and Yes Tenderness to palpation present (GI) (Periumbilical) Extremity: COMMON NORMALS: no clubbing, cyanosis or edema Neuro: COMMON NORMALS: patient oriented x3 Skin: COMMON NORMALS: no rashes or lesions noted and no wounds GENERAL SKIN EXAM: no rashes or lesions noted, dry skin, Excoriation and pallor Course Vital Signs: Vital signs: Vital Signs Temperature 98.9 F 07/03/21 13:45 Pulse Rate 78 07/03/21 19:27 Respiratory Rate 18 07/03/21 19:27 Blood Pressure 109/55 07/03/21 19:27 Pulse Oximetry 97 07/03/21 19:27 MDM - Weakness MDM Narrative: Medical decision making narrative: 60-year-old male with dizziness, orthostatic hypotension, presyncopal symptoms. Hypotension responded to fluid bolus Lab work stable other than slight acute renal insufficiency. CT abdomen pelvis negative for any acute process. Serial troponin levels stable. No acute abnormalities on EKG. 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 Return immediately for worsening symptoms. Differential diagnosis; STEMI, ACS, bowel obstruction, pancreatitis, hepatitis, medication side effects, renal failure, Medical Records: Attestation: I reviewed the patient's medical records. Lab Data: Attestation: I reviewed the patient's lab results. Labs: Lab Results 07/03/21 07/03/21 07/03/21 14:03 14:03 14:26 WBC 3.7 10^3/uL L 10^ 3/uL (4.0-10.0) RBC 3.38 10^6/uL L 10 ^6/uL (4.1-5.3) Hgb 11.1 g/dL L g/dL (11.7-16.6) Hct 34.1 % L % (42.0-52.0) MCV 100.9 fl H fl (80-94) MCH 32.8 pg pg (28.0-34.0) MCHC 32.6 g/dL g/dL (30.0-36.0) RDW 15.9 % H % (12.1-15.1) Plt Count 211 10^3/cmm 10^3 /cmm (130-400) MPV 10.2 fL fL (7.4-10.4) Neut % (Auto) 71.0 % % Lymph % (Auto) 19.0 % % [place] % (Auto) 9.2 % % Eos % (Auto) 0.3 % % Baso % (Auto) 0.5 % % Neut # (Auto) 2.62 10^3/uL 10^3 /uL (1.8-7.7) Lymph # (Auto) 0.7 10^3/uL L 10^ 3/uL (0.8-4.8) [place] # (Auto) 0.3 10^3/uL 10^3/ uL (0.2-0.9) Eos # (Auto) 0.0 10^3/uL 10^3/ uL (0.0-0.8) Baso # (Auto) 0.0 10^3/uL 10^3/ uL (0.0-0.1) Nucleated RBC % (a uto) 0 % % Nucleated RBCs # 0.0 /100WBC /100W BC Sodium Potassium Chloride Carbon Dioxide Anion Gap BUN Creatinine GFR Calculation Glucose Calculated Osmolal ity Calcium Magnesium Total Bilirubin AST ALT Alkaline Phosphata se Troponin T Gen 5 n g/L Troponin T 120 Min [place] Troponin T Total Protein Albumin Globulin Urine Color Yellow (Yellow) Urine Appearance Clear (CLEAR) Urine pH 5 (5-7) Ur Specific Gravit y 1.015 (1.005-1.030) Urine Protein Neg (Negative) Urine Glucose (UA) Norm (Normal) Urine Ketones Negative (Negative) Urine Blood Neg (Negative) Urine Nitrate Negative (Negative) Urine Bilirubin Neg (Negative) Urine Urobilinogen Norm mg/dL mg/dL (Negative) Ur Leukocyte Kristina ase Negative (Negative) Urine Opiates Scre en Negative ng/mL ng /mL (Negative) Ur Barbiturates Sc reen Negative ng/mL ng /mL (Negative) Ur Phencyclidine S crn Negative ng/mL ng /mL (Negative) Ur Amphetamines Sc reen Negative ng/mL ng /mL (Negative) U Benzodiazepines Scrn Negative ng/mL ng /mL (Negative) Urine Cocaine Scre en Negative ng/mL ng /mL (Negative) U Marijuana (THC) Screen Negative ng/mL ng /mL (Negative) 07/03/21 07/03/21 07/03/21 14:26 14:26 16:30 WBC RBC Hgb Hct MCV MCH MCHC RDW Plt Count MPV Neut % (Auto) Lymph % (Auto) [place] % (Auto) Eos % (Auto) Baso % (Auto) Neut # (Auto) Lymph # (Auto) [place] # (Auto) Eos # (Auto) Baso # (Auto) Nucleated RBC % (a uto) Nucleated RBCs # Sodium 134 mmol/L L mmol /L (136-145) Potassium 4.4 mmol/L mmol/L (3.5-5.1) Chloride 102 mmol/L mmol/L (98-107) Carbon Dioxide 22 mmol/L mmol/L (22-29) Anion Gap 14.4 (5-19) BUN 23 mg/dL H mg/dL (6-20) Creatinine 1.4 mg/dL H mg/dL (0.7-1.2) GFR Calculation 51.9 mL/min L mL/ min (90-130) Glucose 73 mg/dL mg/dL (65-115) Calculated Osmolal ity 280 mOsm/kg L mOs m/kg (285-295) Calcium 8.4 mg/dL L mg/dL (8.5-10.5) Magnesium 2.0 mg/dL mg/dL (1.7-2.3) Total Bilirubin 0.3 mg/dL mg/dL (0.15-1.2) AST 67 U/L H U/L (0-40) ALT 56 U/L H U/L (0-41) Alkaline Phosphata se 138 IU/L H IU/L (40-130) Troponin T Gen 5 n g/L 12 ng/L ng/L (0-15) Troponin T 120 Min [place] 9.52 ng/L ng/L (0-15) Delta Troponin T -2.48 ABS# L ABS# (0-10) Total Protein 5.9 g/dL L g/dL (6.6-8.7) Albumin 3.1 g/dL L g/dL (3.5-5.2) Globulin 2.8 g/dL g/dL (1.3-4.6) Urine Color Urine Appearance Urine pH Ur Specific Gravit y Urine Protein Urine Glucose (UA) Urine Ketones Urine Blood Urine Nitrate Urine Bilirubin Urine Urobilinogen Ur Leukocyte Kristina ase Urine Opiates Scre en Ur Barbiturates Sc reen Ur Phencyclidine S crn Ur Amphetamines Sc reen U Benzodiazepines Scrn Urine Cocaine Scre en U Marijuana (THC) Screen Discharge Plan Discharge Patient Disposition: Home Clinical Impression: Acute kidney insufficiency, Hypotension due to drugs, Falls frequently, Abdominal pain, epigastric Condition: Stable Prescriptions: New lisinopril 10 mg tablet 10 mg PO DAILY Qty: 30 RF: 0 amiodarone 200 mg tablet 200 mg PO BID 7 Days Qty: 14 RF: 0 famotidine 40 mg tablet 40 mg PO BID 28 Days Qty: 56 RF: 0 Continued cyproheptadine 4 mg Tablet 4 mg PO BEDTIME RF: 0 tamsulosin 0.4 mg Capsule 0.4 mg PO DAILY RF: 0 ferrous sulfate 325 mg (65 mg iron) Tablet 325 mg PO BID RF: 0 ranolazine 500 mg Tablet Extended Release 12 Hr 500 mg PO BID RF: 0 desvenlafaxine succinate 50 mg Tablet Extended Release 24 Hr 50 mg PO DAILY RF: 0 Eliquis 5 mg Tablet 5 mg PO BID RF: 0 clopidogrel [Plavix] 75 mg Tablet 75 mg PO DAILY RF: 0 rosuvastatin [Crestor] 20 mg Tablet 20 mg PO DAILY RF: 0 Abilify 30 mg Tablet 30 mg PO DAILY RF: 0 Discontinued famotidine 40 mg Tablet 20 mg PO DAILY RF: 0 temazepam 15 mg Capsule 15 mg PO BEDTIME RF: 0 mirtazapine 45 mg Tablet 45 mg PO BEDTIME RF: 0 amiodarone 200 mg Tablet 200 mg PO BID RF: 0 lisinopril 20 mg Tablet 20 mg PO DAILY RF: 0 isosorbide mononitrate 30 mg Tablet Extended Release 24 Hr 30 mg PO BID RF: 0 omega-3 fatty acids-vitamin E 1,000 mg Capsule 1 cap PO DAILY RF: 0 Sentry Senior 500-300-250 mcg Tablet 1 tab PO DAILY RF: 0 tramadol 50 mg Tablet 50 mg PO QID PRN (Reason: Pain) RF: 0 bupropion HCl [Wellbutrin SR] 150 mg tablet sustained-release 12 hr 150 mg PO BID 30 Days Qty: 60 RF: 1 Discharge Orders: Discharge ED (Routine); Ordered 07/03/21 Ordered By: Skylar Buckner Referrals: Livia Ridley MD [Primary Care Provider] - Discharge Diet: Advance as tolerated Discharge Activity: Increase activity as tolerated Patient Instructions: Hypotension (ED) Activity Restrictions/Additional Instructions: Stop taking Norvasc Decrease lisinopril to 10 mg once daily Increase famotidine to 40 mg twice daily Call to schedule follow-up appoint with your heart doctor within the next 3 to 5 days. Use caution when standing and walking: Sit down immediately if you start to feel dizzy. Return immediately to the ER if you develop worsening symptoms. Coding Level of Care Code ED Technical Solutions Engineer for Anabela Fwjus Exam Comprehensive
[2021-07-03 14:09] LABS: Add Urine Microscopic? NO; Charge for UA Resulting for Rev
[2021-07-03 14:15] LABS: Bilirubin Urine Neg (Negative); Blood Urine Neg (Negative); Glucose Urine UA Norm (Normal); Ketones Urine Negative (Negative); Leukocyte Esterase Urine Negative (Negative); Nitrate Urine Negative (Negative); Protein Urine Neg (Negative); Specific Gravity, Urine 1.015 (1.005-1.030); Urine Appearance Clear (CLEAR); Urine Color Yellow (Yellow); Urobilinogen Urine Norm (Negative); pH Urine 5 (5-7)
[2021-07-03 14:21] LABS: Amphetamines Screen Urine Negative (Negative); Barbiturates Screen Urine Negative (Negative); Benzodiazepines Screen Urine Negative (Negative); Cocaine Screen Urine Negative (Negative); Opiate Screen Urine Negative (Negative); PCP Screen Urine Negative (Negative); THC Screen Urine Negative (Negative)
[2021-07-03 14:34] LABS: Basophils % 0.5 %; Eosinophils % 0.3 %; Hematocrit 34.1 % (42.0-52.0); Hemoglobin 11.1 g/dL (11.7-16.6); Lymphocytes # 0.7 10^3/uL (0.8-4.8); Mean Corpuscular HGB Conc 32.6 g/dL (30.0-36.0); Mean Corpuscular Hemoglobin 32.8 pg (28.0-34.0); Mean Corpuscular Volume 100.9 fl (80-94); Mean Platelet Volume 10.2 fL (7.4-10.4); Monocytes # 0.3 10^3/uL (0.2-0.9); Monocytes % 9.2 %; Neutrophils # 2.62 10^3/uL (1.8-7.7); Nucleated Red Blood Cells % 0 %; Platelet Count 211 10^3/cmm (130-400); Red Blood Count 3.38 10^6/uL (4.1-5.3); Red Cell Distribution Width 15.9 % (12.1-15.1); White Blood Count 3.7 10^3/uL (4.0-10.0)
--- NOTE | 2021-07-03 14:49 | CTR_ITS ---
PROCEDURE INFORMATION: Exam: CT Abdomen And Pelvis With Contrast Exam date and time: 07/03/2021 2:49 PM Age: 60 years old Clinical indication: Abdominal pain TECHNIQUE: Imaging protocol: Computed tomography of the abdomen and pelvis with contrast. Radiation optimization: All CT scans at this facility use at least one of these dose optimization techniques: automated exposure control; mA and/or kV adjustment per patient size (includes targeted exams where dose is matched to clinical indication); or iterative reconstruction. Contrast material: OMNI 300; Contrast volume: 95 ml; Contrast route: INTRAVENOUS (IV); COMPARISON: CT chest con [id number] 11/24/2020 9:35 PM RADIATION DOSE METRICS: Total DLP (mGy-cm): 1822.12 FINDINGS: Heart: Stable severe calcified coronary artery disease. Liver: Normal. No mass. Gallbladder and bile ducts: Stable cholecystectomy. Pancreas: Normal. No ductal dilation. Spleen: Normal. No splenomegaly. Adrenal glands: Normal. No mass. Kidneys and ureters: Normal. No hydronephrosis. Stomach and bowel: Stable gastric bypass surgery. Appendix: No evidence of appendicitis. Intraperitoneal space: Unremarkable. No free air. No significant fluid collection. Vasculature: Unremarkable. No abdominal aortic aneurysm. Lymph nodes: Calcified right hilar nodes and/or mediastinal nodes and/or lung granulomas consistent with old granulomatous disease. Urinary bladder: Unremarkable as visualized. Reproductive: Unremarkable as visualized. Bones/joints: Bilateral total hip replacement with metallic artifact partially obscuring the pelvic anatomy. Soft tissues: Right inguinal hernia containing fat. CT/CT abdomen pelvis w con* [id number] IMPRESSION: 1. Stable severe calcified coronary artery disease. 2. Stable cholecystectomy. 3. Stable gastric bypass surgery. Radiation Dose CTDIVOL = (mGy): DLP = 1822.12 (mGy-cm)
[2021-07-03 15:00] LABS: Alanine Aminotransferase 56 U/L (0-41); Albumin Level 3.1 g/dL (3.5-5.2); Alkaline Phosphatase 138 IU/L (40-130); Anion Gap 14.4 (5-19); Aspartate Amino Transferase 67 U/L (0-40); Blood Urea Nitrogen 23 mg/dL (6-20); Calcium 8.4 mg/dL (8.5-10.5); Carbon Dioxide 22 mmol/L (22-29); Chloride 102 mmol/L (98-107); Globulin 2.8 g/dL (1.3-4.6); Glomerular Filtration Rate 51.9 mL/min (90-130); Glucose 73 mg/dL (65-115); Osmolality Calculated 280 mOsm/kg (285-295); Potassium 4.4 mmol/L (3.5-5.1); Sodium 134 mmol/L (136-145); Total Bilirubin 0.3 mg/dL (0.15-1.2); Total Protein 5.9 g/dL (6.6-8.7)
[2021-07-03 15:12] VITALS: RESP 20; O2SAT 100
[2021-07-03] MEDS: morphine 4 mg/mL SDV 1 mL 6 MG IVP (15:12)
[2021-07-03] MEDS: sodium chloride 0.9% 1,000 ML 999 ML IV (15:15)
[2021-07-03 16:23] LABS: Troponin T (5th) Once 12 ng/L (0-15)
[2021-07-03] MEDS: amiodarone 50 mg/mL SDV 3 mL 150 MG IVP (16:23)
[2021-07-03 17:02] LABS: Troponin 5 2HR 9.52 ng/L (0-15)
[2021-07-03 17:33] VITALS: BP 95/54; PULSE 72; RESP 18; O2SAT 98
--- NOTE | 2021-07-03 17:34 | PC.NURSE ---
Pt placed on monitor tech upon entering the room.
[2021-07-03 17:35] LABS: Troponin 5 2HR Delta -2.48 ABS# (0-10)
--- NOTE | 2021-07-03 18:07 | ECG_ITS ---
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: : 1960 Requested By: Skylar Buckner Order Number: [id number] Reading MD: JUANCARLOS GARCIA Measurements Intervals [place] Rate: 67 P: 60 NV: 152 QRS: 1 QRSD: 106 T: -23 QT: 321 QTc: 341 Interpretive Statements SINUS RHYTHM NONSPECIFIC T-WAVE ABNORMALITY Compared to ECG 07/03/2021 14:04:09 Atrial-paced complex(es) or rhythm no longer present T-wave abnormality still present Electronically Signed On 07-04-2021 14:35:49 WATCH PARTS INSPECTOR by JUANCARLOS GARCIA [id number]
[2021-07-03 19:27] VITALS: BP 109/55; PULSE 78; RESP 18; O2SAT 97
== END 2021-07-03 19:34 | disposition home or self-care (01) ==
PROVIDERS: Emergency Provider Family Medicine; PCP Emergency Medicine
DX: N28.9 Disorder of kidney and ureter, unspecified (principal); I95.2 Hypotension due to drugs; Z91.81 History of falling; R10.13 Epigastric pain; Z79.01 Long term (current) use of anticoagulants
CPT/HCPCS: 74177; 80053; 80306; 81003; 83735; 84484; 85025; 93005; 96365; 96375; 99284; J0282; J2270; J3475; J7030; Q9967

== ENCOUNTER 2021-10-21 11:27 | Inpatient (IN) | payer MEDICARE, MEDICAID, SELFPAY ==
[2021-10-21] VITALS (64 sets, daily range): BP systolic 115–190; BP diastolic 58–99; PULSE 78–101; RESP 12–26; TEMP 37–37.8; O2SAT 87–99; BMI 42.5
--- NOTE | 2021-10-21 11:42 | XR_ITS ---
WS: [id number] XR chest 1V portable [id number] REASON FOR EXAM: chest pain FINDINGS: The chest appears unchanged compared to 11/23/2020. Battery pack overlying the left chest with leads transvenous left subclavian to the right HM and righ t ventricular apex. Heart size is at the upper limits of normal. Calcified granulomatous disease in both hemithoraces. No acute pulmonary parenchymal or pleural abnormality. Moderate changes of degenerative spondylosis in the mid and lower thoracic spine. XR/XR chest 1V portable [id number] IMPRESSION: Stable chest with no acute abnormality identified.
--- NOTE | 2021-10-21 11:42 | ECG_ITS ---
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 Measurements Intervals [place] Rate: 89 P: 32 UT: 135 QRS: 11 QRSD: 101 T: 21 QT: 269 QTc: 328 Interpretive Statements SINUS RHYTHM LOW QRS VOLTAGE IN PRECORDIAL LEADS [QRS DEFLECTION < 1.0 mV IN CHEST LEADS] POSSIBLE RIGHT VENTRICULAR CONDUCTION DELAY [RSR (QR) IN V1/V2] NONSPECIFIC T-WAVE ABNORMALITY Compared to ECG 07/03/2021 16:18:44 Low QRS voltage now present T-wave abnormality still present Electronically Signed On 10-22-2021 18:48:47 CDT by Jose Ugarte M.D. [id number]
[2021-10-21 12:04] LABS: Basophils % 0.1 %; Eosinophils # 0.1 10^3/uL (0.0-0.8); Eosinophils % 0.8 %; Hemoglobin 12.9 g/dL (11.7-16.6); Lymphocytes % 14.4 %; Mean Corpuscular HGB Conc 32.3 g/dL (30.0-36.0); Mean Corpuscular Hemoglobin 31.7 pg (28.0-34.0); Mean Corpuscular Volume 98.3 fl (80-94); Mean Platelet Volume 10.5 fL (7.4-10.4); Monocytes # 0.7 10^3/uL (0.2-0.9); Neutrophils # 5.25 10^3/uL (1.8-7.7); Neutrophils % 74.4 %; Nucleated Red Blood Cells % 0 %; Platelet Count 196 10^3/cmm (130-400); Red Blood Count 4.07 10^6/uL (4.1-5.3); Red Cell Distribution Width 14.1 % (12.1-15.1); White Blood Count 7.1 10^3/uL (4.0-10.0)
[2021-10-21] MEDS: aspirin 325 mg Tablet PO (12:11)
[2021-10-21] MEDS: nitroglycerin 0.4 mg sublingual Tablet SUBLINGUAL (12:15)
[2021-10-21] MEDS: morphine 4 mg/mL SDV 1 mL IVP (12:15)
--- NOTE | 2021-10-21 12:15 | ED_ITS ---
HPI - Chest Pain General: Chief Complaint: Chest Pain Stated Complaint: Chest pain, dizzy Time Seen by Provider: 10/21/21 11:52 [facility]: Medical History Afib CAD (coronary artery disease) Chronic anticoagulation Diabetes HTN (hypertension) Pacemaker SSS (sick sinus syndrome) Transaminitis Surgical History Gastric banding status S/P placement of cardiac pacemaker Status post cholecystectomy Family History Father CAD (coronary artery disease) Mother Cancer Social History Smoking and tobacco status: never smoked Alcohol intake: never Household members: spouse Housing: House Course Vital Signs: Vital signs: Vital Signs Pulse Rate 86 10/21/21 11:34 Respiratory Rate 20 H 10/21/21 11:34 Blood Pressure 190/99 10/21/21 11:34 Pulse Oximetry 99 10/21/21 11:34 MDM - Chest Pain Lab Data : 10/21/21 11:55 10/21/21 11:55 Radiology Impressions Chest X-Ray 10/21/21 11:42 IMPRESSION: Stable chest with no acute abnormality identified. Laboratory Results WBC 7.1 10^3/uL (4.0-10.0) 10/21/21 11:55 RBC 4.07 10^6/uL (4.1-5.3) L 10/21/21 11:55 Hgb 12.9 g/dL (11.7-16.6) 10/21/21 11:55 Hct 40.0 % (42.0-52.0) L 10/21/21 11:55 MCV 98.3 fl (80-94) H 10/21/21 11:55 MCH 31.7 pg (28.0-34.0) 10/21/21 11:55 MCHC 32.3 g/dL (30.0-36.0) 10/21/21 11:55 RDW 14.1 % (12.1-15.1) 10/21/21 11:55 Plt Count 196 10^3/cmm (130-400) 10/21/21 11:55 MPV 10.5 fL (7.4-10.4) H 10/21/21 11:55 Neut % (Auto) 74.4 % 10/21/21 11:55 Lymph % (Auto) 14.4 % 10/21/21 11:55 Clarke % (Auto) 10.0 % 10/21/21 11:55 Eos % (Auto) 0.8 % 10/21/21 11:55 Baso % (Auto) 0.1 % 10/21/21 11:55 Neut # (Auto) 5.25 10^3/uL (1.8-7.7) 10/21/21 11:55 Lymph # (Auto) 1.0 10^3/uL (0.8-4.8) 10/21/21 11:55 Clarke # (Auto) 0.7 10^3/uL (0.2-0.9) 10/21/21 11:55 Eos # (Auto) 0.1 10^3/uL (0.0-0.8) 10/21/21 11:55 Baso # (Auto) 0.0 10^3/uL (0.0-0.1) 10/21/21 11:55 Nucleated RBC % (auto) 0 % 10/21/21 11:55 Nucleated RBCs # 0.0 /100WBC 10/21/21 11:55 Discharge Plan Discharge Condition: Stable Prescriptions: No Action cyproheptadine 4 mg Tablet 4 mg PO BEDTIME 0RF tamsulosin 0.4 mg Capsule 0.4 mg PO DAILY 0RF ferrous sulfate 325 mg (65 mg iron) Tablet 325 mg PO BID 0RF ranolazine 500 mg Tablet Extended Release 12 Hr 500 mg PO BID 0RF desvenlafaxine succinate 50 mg Tablet Extended Release 24 Hr 50 mg PO DAILY 0RF Eliquis 5 mg Tablet 5 mg PO BID 0RF clopidogrel [Plavix] 75 mg Tablet 75 mg PO DAILY 0RF rosuvastatin [Crestor] 20 mg Tablet 20 mg PO DAILY 0RF Abilify 30 mg Tablet 30 mg PO DAILY 0RF lisinopril 10 mg tablet 10 mg PO DAILY Qty: 30 0RF Referrals: Livia Ridley MD [Primary Care Provider] - Coding Level of Care Code ED 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
--- NOTE | 2021-10-21 12:17 | ED_ITS ---
HPI - General Adult General: Chief complaint: Chest Pain Stated complaint: Chest pain, dizzy Time Seen by Provider: 10/21/21 11:52 History of Present Illness: CC: Chest Pain HPI: This is a [61]yo patient hx of afib on Eliquis, CAD, DM, HTN pacemaker dependence presenting to the ED complaining of 3 days of sharp L sided chst pain. WITHOUT radiation to the back or shoulders. Patient reports shortness of breath, chest pain and dyspnea on exertion. Patient tells me that pain is very similar to his previous heart attacks. Patient is requiring significant for currently 10 out of 10. In addition, he has been having cough and generalized weakness and body ache for 1 day. Pain is not tearing in nature and does not radiate to the back. Pain not associated with vomiting or PO intake. Denies any recent sympathomimetic drug use. Patient denies any cough. Denies palpitations, dysphagia, diaphoresis, radiation of pain to bilateral arms, jaw. Denies F/N/V/D. Patient denies any recent immobility, surgery, unilateral leg swelling, or prior PE. Patient denies any orthopnea. Onset: 3 days ago Duration: ongoing for the last 3 days Location: home Severity: mild/moderate Associated symptoms: Reports chest pain and dyspnea; Deny nausea, rash, palpitations or vomiting Review of Systems Const: Reports: chills, body aches and other (+generalized weakness); Denies: fever(s) Eyes: Denies: change in vision ENMT: Denies: mouth pain Card: Reports: chest pain and dyspnea on exertion; Denies: palpitations Resp: Reports: dyspnea; Denies: non-productive cough GI: Denies: abdominal pain, nausea, vomiting or diarrhea : Denies: dysuria Musc: Denies: extremity pain Skin/Breast: Denies: rash or new lesions Neuro: Denies: weakness in extremities Psych: Reports: other (Normal mood) Phu/Lymph: Denies: easy bruising PFSH ED PFSH: Medical History Afib CAD (coronary artery disease) Chronic anticoagulation Diabetes HTN (hypertension) Pacemaker SSS (sick sinus syndrome) Transaminitis Surgical History Gastric banding status S/P placement of cardiac pacemaker Status post cholecystectomy Family History Father CAD (coronary artery disease) Mother Cancer Social History Smoking and tobacco status: never smoked Alcohol intake: never Household members: spouse Housing: House Physical Exam Const: COMMON NORMALS: alert HENMT: COMMON NORMALS: atraumatic HEAD & SCALP: atraumatic MOUTH: moist mucous membranes not abnormal Eye: COMMON NORMALS: EOMs intact bilaterally and conjunctivae normal CONJUNCTIVA: Yes conjunctivae normal Neck/C-Spine: COMMON NORMALS: full ROM and supple Resp: COMMON NORMALS: normal respiratory effort and clear to auscultation bila terally AUSCULTATION: clear to auscultation bilaterally Cardio: COMMON NORMALS: regular rate RATE: regular rate GI: COMMON NORMALS: Soft to palpation and non-tender PALPATION: Yes Soft to palpation Extremity: COMMON NORMALS: full ROM Neuro: SENSORIUM/ORIENTATION: Yes alert MOTOR EXAM: No Abnormal motor strength present and Other motor observations present (no focal motor deficits) Psych: COMMON NORMALS: speech normal SPEECH: Yes normal speech MOOD & AFFECT: Yes euthymic mood Course Vital Signs: Vital signs: Vital Signs Temperature 98.0 F 10/22/21 04:00 Pulse Rate 86 10/22/21 09:00 Respiratory Rate 14 10/22/21 09:00 Blood Pressure 155/88 10/22/21 09:00 Pulse Oximetry 95 10/22/21 09:00 MDM - General Adult Medical Decision Making [61]yo patient w/ hx of HTN, CAD, DM, afib on eliquis, SSS s/p pacemaker presenting to the ED with evaluation of new onset sharp chest pain constant lasting for 3 days. HDS, pulse 2+ radially bilaterally, no signs of fluid overload, AAOx3, neuro exam intact. Given History and Exam today, considered ACS, Pneumothorax, Pneumonia, Pulmonary Embolus, Tamponade, Aortic Dissection or other emergent problems as a cause for this presentation. Workup: ECG x2, CXR, CBC, BMP, Troponin x 2 Interventions: ASA, nitro, morphine Findings: ECG: No overt evidence of STEMI, hyperacute T waves, localizable STD or T wave inversions. No evidence of Brugada?s sign, delta wave, epsilon wave, significantly prolonged QTc, or malignant arrhythmia. No Q waves. CXR: Without PTX, PNA, or widened mediastinum [1:45pm] On reassessment, the patient is HDS, no complaints of persistent chest pain in the ED after evaluation. ECG is non-ischemic. Workup today is unremarkable. Doubt ACS/PE or other emergent causes of chest pain. Doubt ACS/PE or other emergent causes of chest pain. No suspicion for aortic dissection given no widened mediastinum, 2+ upper extremity pulses, or tearing pain. No suspicion for PE given no pleuritic chest pain, recent immobilization or surgery hemoptysis, or other VTE risk factors and negative dimer. EKG is non-ischemic. XR normal. While observed in the emergency room at 2:10 PM, patient had a paroxysmal episode of polymorphic ventricular tachycardia lasting for 45 seconds on telemet ry. Patient not lose consciousness during the episode. Patient on repeat EKG showed a QTC of 328 with a QT of 281. It is unclear why patient has a short QT. Patient received magnesium. EKG did not show any signs of YESENIA or hyperacute T waves on repeat after the episode.. Case was discussed with Dr. Ugarte for possibility of laborer concrete paving activation for chest pain and VT on telemetry monitor. Dr. Ugarte evaluated patient at bedside and recommended activating Look Out Tower Fire Watcher at 4 PM. Disposition: ICU Lab Data : 10/22/21 02:54 10/22/21 02:54 Radiology Impressions Chest X-Ray 10/21/21 11:42 IMPRESSION: Stable chest with no acute abnormality identified. Laboratory Results WBC 7.1 10^3/uL (4.0-10.0) 10/21/21 11:55 RBC 4.07 10^6/uL (4.1-5.3) L 10/21/21 11:55 Hgb 12.9 g/dL (11.7-16.6) 10/21/21 11:55 Hct 40.0 % (42.0-52.0) L 10/21/21 11:55 MCV 98.3 fl (80-94) H 10/21/21 11:55 MCH 31.7 pg (28.0-34.0) 10/21/21 11:55 MCHC 32.3 g/dL (30.0-36.0) 10/21/21 11:55 RDW 14.1 % (12.1-15.1) 10/21/21 11:55 Plt Count 196 10^3/cmm (130-400) 10/21/21 11:55 MPV 10.5 fL (7.4-10.4) H 10/21/21 11:55 Neut % (Auto) 74.4 % 10/21/21 11:55 Lymph % (Auto) 14.4 % 10/21/21 11:55 [place] % (Auto) 10.0 % 10/21/21 11:55 Eos % (Auto) 0.8 % 10/21/21 11:55 Baso % (Auto) 0.1 % 10/21/21 11:55 Neut # (Auto) 5.25 10^3/uL (1.8-7.7) 10/21/21 11:55 Lymph # (Auto) 1.0 10^3/uL (0.8-4.8) 10/21/21 11:55 [place] # (Auto) 0.7 10^3/uL (0.2-0.9) 10/21/21 11:55 Eos # (Auto) 0.1 10^3/uL (0.0-0.8) 10/21/21 11:55 Baso # (Auto) 0.0 10^3/uL (0.0-0.1) 10/21/21 11:55 Nucleated RBC % (auto) 0 % 10/21/21 11:55 Nucleated RBCs # 0.0 /100WBC 10/21/21 11:55 D-Dimer 0.41 ug/mIFEU (0-0.59) 10/21/21 11:55 Sodium 138 mmol/L (136-145) 10/21/21 11:55 Potassium 3.6 mmol/L (3.5-5.1) 10/21/21 11:55 Chloride 102 mmol/L (98-107) 10/21/21 11:55 Carbon Dioxide 26 mmol/L (22-29) 10/21/21 11:55 Anion Gap 13.6 (5-19) 10/21/21 11:55 BUN 5 mg/dL (8-23) L 10/21/21 11:55 Creatinine 0.7 mg/dL (0.7-1.2) 10/21/21 11:55 GFR Calculation 115.0 mL/min (90-130) 10/21/21 11:55 Glucose 124 mg/dL (65-115) H 10/21/21 11:55 Calculated Osmolality 285 mOsm/kg (285-295) 10/21/21 11:55 Calcium 9.0 mg/dL (8.5-10.5) 10/21/21 11:55 Total Bilirubin 0.2 mg/dL (0.15-1.2) 10/21/21 11:55 AST 58 U/L (0-40) H 10/21/21 11:55 ALT 95 U/L (0-41) H 10/21/21 11:55 Alkaline Phosphatase 126 IU/L (40-130) 10/21/21 11:55 Troponin T Baseline 16 ng/L (0-15) H 10/21/21 11:55 Total Protein 7.0 g/dL (6.6-8.7) 10/21/21 11:55 Albumin 3.8 g/dL (3.5-5.2) 10/21/21 11:55 Globulin 3.2 g/dL (1.3-4.6) 10/21/21 11:55 Nasal Influ A H1 2009 PCR Not detected (NOT DETECT) 10/21/21 12:15 Coronavirus 229E (PCR) Not detected (NOT DETECT) 10/21/21 12:15 Influenza A (H1) PCR Not detected (NOT DETECT) 10/21/21 12:15 Influenza A (H3) PCR Not detected (NOT DETECT) 10/21/21 12:15 Influenza Type A (PCR) Not detected (NOT DETECT) 10/21/21 12:15 Influenza Type B (PCR) Not detected (NOT DETECT) 10/21/21 12:15 SARS-CoV-2 (PCR) Not detected (NOT DETECT) 10/21/21 12:15 Imaging Data Other Imaging: Radiologist's impression: [address] [address] XRay Report Signed Patient: Jeremie Alexander Unit #: [id number] : 1960 Age/Sex: 61 / M ADM Date: 10/21/21 Loc: ER Room/Bed: Attending Dr: Ordering Provider/Ordering MD: Pretty Palencia Date of Service: 10/21/21 Procedure(s): XR chest 1V portable [id number] Accession Number(s): [id number] Report Number: [id number] WS: [id number] XR chest 1V portable [id number] REASON FOR EXAM: chest pain FINDINGS: The chest appears unchanged compared to 11/23/2020. Battery pack overlying the left chest with leads transvenous left subclavian to the right HM and right ventricular apex. Heart size is at the upper limits of normal. Calcified granulomatous disease in both hemithoraces. No acute pulmonary parenchymal or pleural abnormality. Moderate changes of degenerative spondylosis in the mid and lower thoracic spine. XR/XR chest 1V portable [id number] IMPRESSION: Stable chest with no acute abnormality identified. ? ? Dictated By: Braxton Palacios Jr, MD Signed By: Braxton Palacios Jr, MD Signed Date/Time: 10/21/21 1207 DD/ 1205 Discharge Plan Discharge Patient Disposition: Admitted As Inpatient Admit Provider: Irene Mohr Clinical Impression: Chest pain, Flu-like symptoms Condition: Stable Coding Level of Care Code ED Computer Systems Auditor for Chg Fwd Exam Comprehensive
[2021-10-21 12:20] LABS: D Dimer 0.41 ug/mIFEU (0-0.59)
[2021-10-21 12:23] LABS: Troponin(5th) Baseline 16 ng/L (0-15)
[2021-10-21 12:24] LABS: Alanine Aminotransferase 95 U/L (0-41); Albumin Level 3.8 g/dL (3.5-5.2); Alkaline Phosphatase 126 IU/L (40-130); Anion Gap 13.6 (5-19); Aspartate Amino Transferase 58 U/L (0-40); Blood Urea Nitrogen 5 mg/dL (8-23); Carbon Dioxide 26 mmol/L (22-29); Chloride 102 mmol/L (98-107); Globulin 3.2 g/dL (1.3-4.6); Glucose 124 mg/dL (65-115); Osmolality Calculated 285 mOsm/kg (285-295); Potassium 3.6 mmol/L (3.5-5.1); Sodium 138 mmol/L (136-145); Total Bilirubin 0.2 mg/dL (0.15-1.2)
[2021-10-21] MEDS: HYDROmorphone 1 mg/mL INJ 1 mL 0.5 MG IVP (12:54)
--- NOTE | 2021-10-21 13:42 | ECG_ITS ---
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 Measurements Intervals [place] Rate: 87 P: 38 CO: 138 QRS: 5 QRSD: 99 T: 20 QT: 276 QTc: 333 Interpretive Statements SINUS RHYTHM LOW QRS VOLTAGE IN PRECORDIAL LEADS [QRS DEFLECTION < 1.0 mV IN CHEST LEADS] POSSIBLE RIGHT VENTRICULAR CONDUCTION DELAY [RSR (QR) IN V1/V2] NONSPECIFIC T-WAVE ABNORMALITY Compared to ECG 10/21/2021 11:52:46 No significant changes Electronically Signed On 10-22-2021 20:25:33 CDT by Jose Ugarte M.D. [id number]
[2021-10-21 14:10] LABS: Adenovirus Not Detected (NOT DETECT); Chlamydia Pneumoniae Not Detected (NOT DETECT); Coronavirus 229E,HKU1,NL63,OC4 Not Detected (NOT DETECT); Human Metapneumovirus Not Detected (NOT DETECT); Human Rhinovirus/Enterovirus Detected (NOT DETECT); Influenza A Not Detected (NOT DETECT); Influenza A H1 Not Detected (NOT DETECT); Influenza A H1-2009 Not Detected (NOT DETECT); Influenza A H3 Not Detected (NOT DETECT); Influenza B Not Detected (NOT DETECT); Mycoplasma Pneumoniae Not Detected (NOT DETECT); Parainfluenza Virus Type 1 Not Detected (NOT DETECT); Parainfluenza Virus Type 2 Not Detected (NOT DETECT); Parainfluenza Virus Type 3 Not Detected (NOT DETECT); Parainfluenza Virus Type 4 Not Detected (NOT DETECT); Respiratory Syncytial Virus A Not Detected (NOT DETECT); Respiratory Syncytial Virus B Not Detected (NOT DETECT); SARS-COV-2 Not Detected (NOT DETECT)
[2021-10-21] MEDS: magnesium sulfate premix 2 GM/50 ML PIGGYBACK IV (14:12)
[2021-10-21 14:15] LABS: Results from GEN
[2021-10-21 14:15] LABS: Human Metapneumovirus Not Detected (NOT DETECT); Human Rhinovirus/Enterovirus Detected (NOT DETECT); Results from GEN
[2021-10-21 14:31] LABS: Troponin 5 2HR 14.95 ng/L (0-15)
[2021-10-21] MEDS: nitroglycerin drip 50 MG/250 ML PREMIX IV (15:01)
[2021-10-21 15:10] LABS: Troponin 5 2HR Delta -1.05 ABS# (0-10)
--- NOTE | 2021-10-21 15:40 | XACV_ITS ---
Exam Room: [facility] Ht: 160 cm Wt: 109 kg BSA: 2.26 m2 Gender: Male : 1960 Exam Priority: Routine Procedure(s): Procedure Description: Diagnostic procedure Procedure Description: Coronary IVUS Procedure Description: Coronary Angiography Procedure Description: Pressure Wire Diagnostic Cath Status: Urgent Diagnostic Findings * Circumflex has no disease. Patent prior stents. * Right Coronary Artery has no significant disease. nPatient prior stents. * Ostial Left Anterior Descending: mild 40% stenosis, SONY: 3 flow. Ostial LAD has calcified lesion. * INDICATION: Chest pain/ ventricular tachycardia. * Left Main has no disease. * Coronary angiography shows right dominance. Interventional Findings * Procedure detail: We engaged left main artery with XB 3.0 guide catheter. After administering heparin and obtaining ACT of more than 250s, we will advanced IFR pressure wire to distal LAD. IFR value of 0.91 was obtained that was nonischemic. We also confirmed lack of plaque rupture and ostial LAD which was calcified vessel with IVUS. Patient left the Artificial Leather Calender Operator in stable condition. Conclusions 1. Moderate 2. ostial LAD stenosis. 3. iFR is nonischemic with a value of 0.91 and IVUS does not show 4. any plaque rupture or thrombus formation.. Recommendations * Transfer to ICU. * Continue dual antiplatelet therapy. * ICD device check. Diagnostic RX Recommendation: medical therapy and/or counseling Anticoagulation: Heparin Pressures Phase:Rest AO : 96 / 65 ( 81 ) @ 5:37:00 PM 103 / 59 ( 79 ) @ 6:23:00 PM 109 / 58 ( 81 ) @ 6:40:00 PM Clinical Evaluation EBL: 5mL-10mL Procedural Details Procedure Consent Obtained. Admit Source: Emergency department. Pre-Procedure Time Out. Identified patient by full name and date of as verbalized by the patient/guarantor. Does the consent match the physician's order: Yes. Accurate & Complete Informed Consent: Yes. Inpatient/Outpatient History & Physical on Chart: Yes. If H&P is completed, is and addenduem needed: N/A; If yes, is the addendum complete: N/A. Visualize and Verify Site with Patient/Guarantor: N/A. Relevant Radiology Images available: N/A. Pre-op teaching completed and patient verbalized understanding. The risks, benefits, and alternatives of sedation and/or procedure were discussed by physician. The patient agrees to continue. Procedure started. [facility] Clinical Fraility Score: 4: Vulnerable. Artificial Leather Calender Operator Indications: Worsening Angina, V Tach. Chest Pain Symptom Assessment: Atypical Angina. Cardiovascular Instability: Yes, if yes, Ventricular Arrhythmias. Correct patient, site and procedure confirmed by cath team. Current diagnosis: Chest Pain. PERRLA. Strong, equal hand battery tester and repairer bilaterally. Lungs clear x 5 lobes. IV Site on Arrival: 20 gauge in the right anticubital. IV Site on Arrival: 20 gauge in the left anticubital. IV Fluids: 0.9% NaCl at KVO. 0 mL infused prior to laboratory immunologist. Pre Procedural Pulses: right radial was 2+. Pre Procedural Pulses: bilateral dorsalis pedis was 1+. Oxygen started at 2liters/min via nasal canula. right groin was prepped with chloroprep then draped in the usual sterile fashion. right radial was prepped with chloroprep then draped in the usual sterile fashion. Baseline sample Acquired. HR: 83 BPM. Physician notified. Physician arrived. Physician scrubbed in. Immediate Pre-Procedure Time Out. Correct Patient: Yes; Correct Procedure: Yes; Correct Site: Yes; Correct Patient Position: Yes; Correct Supplies: Yes; Dried Flammable Prep: Yes; Blood Products Available: N/A;. Lidocaine 1% infiltrated to the right radial. Arterial access obtained. A 5 niuean TIG catheter in over wire. Wire removed. Hand injectin performed through the catheter. Catheter out. A 5 niuean JR4 catheter in over wire. Multiple views taken of right coronary artery. Catheter removed over the glide wire. Glidewire removed. Standard wire inserted. Catheter removed over the standard wire. A 5 niuean JL4 catheter in over wire. Multiple views taken of left coronary artery. 6 niuean JL 4 guide catheter was inserted over the wire. Standard wire removed. Glidewire inserted. Guide catheter out. 6 niuean XB 3 guide catheter was inserted over the wire. Glidewire out, J wire inserted. Guide catheter and wire out. A TR Band was successful obtaining hemostatsis at the Right Radial artery insertion site. Lidocaine 1% infiltrated to the right groin. Arterial access obtained with micropuncture set. Fractional flow reserve measurements obtained. FFR guidewire was advanced through the guide catheter to lesion in the prox LAD. IFR wire removed. Runthrough guidewire was advanced through the guide catheter to lesion in the prox LAD. IVUS catheter inserted to the lesion in the proximal LAD. IVUS images obtained. IVUS catheter removed. Runthrough wire removed. Guide catheter removed. A Right femoral angiogram was performed to determine safe placement of closure device. A Angio-Seal VIP ([facility]) was successful obtaining hemostatsis at the Right Femoral artery insertion site. Post Procedure: Pulses reassessed and unchanged. PERRLA. Strong, equal hand battery tester and repairer bilaterally. No VTE prophylaxis required. Medication's Wasted: Heparin = 1000 u. Medication's Wasted: Lidocaine 1% = 8 mL. Total IV fluids: 114 mL. Complications: none. Estimated blood loss: 5mL-10mL. Responsiveness - Normal response to verbal stimuli; alert and oriented, PERRLA. Airway - Unaffected, no intervention required; spontaneous ventilation. Circulation: W/N/L, pulses unchanged. Nausea/Vomiting: No. Procedure completed. Patient transferred by bed to ICU. Vital chart was stopped. A 5 niuean TIG catheter in over wire. Catheter out. 6 niuean XB 3 guide catheter was inserted over the wire. Access Site Site: Right Radial artery Sheath Size: 6 Fr Hemostasis Method: TR Band Hemostasis Success: Successful Site: Right Femoral artery Sheath Size: 6 Fr Hemostasis Method: Angio-Seal VIP ([facility]) Hemostasis Success: Successful Procedure Medications Start: 4:22 PM Stop: 4:22 PM Medication: Versed Amount: 1 mg Route: I.V. Start: 4:22 PM Stop: 4:22 PM Medication: Fentanyl Amount: 50 mcg Route: I.V. Start: 4:30 PM Stop: 4:30 PM Medication: Nitrogylcerin Amount: 200 mcg Route: I.A. Start: 4:55 PM Stop: 4:55 PM Medication: Versed Amount: 1 mg Route: I.V. Start: 5:33 PM Stop: 5:33 PM Medication: Heparin Amount: 5000 units Route: I.V. Start: 5:44 PM Stop: 5:44 PM Medication: Fentanyl Amount: 50 mcg Route: I.V. I, the attending physician, have reviewed and verified all procedure medications. Yes, all medications given per verbal order History/Risk Factors Hypertension: Yes Dyslipidemia: No Peripheral Arterial Disease (PAD): No Myocardial Infarction ([place]): No Obesity: Yes Renal Disease: No Prior Interventions PCI: No CABG: No Valve Surgery: No Report Signatures Finalized by Jose Ugarte MD on 11/04/2021 11:46 AM
--- NOTE | 2021-10-21 16:22 | P.CONIM_ITS ---
Providers/Reason For Consult Consulting Physician/Specialty*: Jose Ugarte MD/Cardiology Reason for Consult*: Chest pain/ ventricular tachcyardia Requesting Physician: Dr Mendez Attending Physician: Irene Mohr MD Primary Care Provider: Livia Ridley MD History of Present Illness History of Present Illness Jeremie Alexander is a 61 year old male with past medical history of atrial fibrillation on Eliquis, coronary artery disease with multiple PCI's in the past, diabetes, hypertension, has ICD in place presented with 2 to 3 days of left-sided chest pain. According to patient it but radiated to the left arm. Today he had 2 shocks to his ICD device. In the emergency room also went into ventricular tachycardia. His chest pain is persistent now. According to patient he feels same as his prior heart attacks. Initial troponin is negative. EKG does not show significant ST-T wave changes. Review of Systems Const: Reports: chills, body aches and other (+generalized weakness); Denies: fever(s) Eyes: Denies: change in vision ENMT: Denies: mouth pain Card: Reports: chest pain and dyspnea on exertion; Denies: palpitations Resp: Reports: dyspnea; Denies: non-productive cough GI: Denies: abdominal pain, nausea, vomiting or diarrhea : Denies: dysuria Musc: Denies: extremity pain Skin/Breast: Denies: rash or new lesions Neuro: Denies: weakness in extremities Psych: Reports: other (Normal mood) Phu/Lymph: Denies: easy bruising Medications/Allergies Home Medications Medication Instructions Recorded Confirmed Last Taken Type apixaban 5 mg tablet (Eliquis) 5 mg PO BID 11/23/20 10/21/21 10/21/21 History clopidogrel 75 mg tablet (Plavix) 75 mg PO DAILY 11/23/20 10/21/21 10/21/21 History cyproheptadine 4 mg tablet 4 mg PO BEDTIME 11/23/20 10/21/21 10/20/21 History desvenlafaxine succinate 50 mg 50 mg PO DAILY 11/23/20 10/21/21 10/21/21 History tablet,extended release 24 hr ferrous sulfate 325 mg (65 mg 325 mg PO BID 11/23/20 10/21/21 10/21/21 History iron) tablet ranolazine 500 mg tablet,extended 500 mg PO BID 11/23/20 10/21/21 10/21/21 History release,12 hr rosuvastatin 20 mg tablet (Crestor) 20 mg PO DAILY 11/23/20 10/21/21 10/21/21 History tamsulosin 0.4 mg capsule 0.4 mg PO DAILY 11/23/20 10/21/21 10/21/21 History amiodarone 200 mg tablet 200 mg PO DAILY 10/21/21 10/21/21 10/21/21 History amlodipine 5 mg tablet 5 mg PO DAILY 10/21/21 10/21/21 10/21/21 History aripiprazole 15 mg tablet 15 mg PO DAILY 10/21/21 10/21/21 10/21/21 History clobetasol 0.05 % topical ointment 1 applic TOPICAL DAILY 10/21/21 10/21/21 10/21/21 History cyanocobalamin (B12)-cobamamide 1 fito SUBLINGUAL DAILY 10/21/21 10/21/21 10/21/21 History 5,000 mcg-100 mcg sublingual lozenge (B12) fluoxetine 10 mg capsule 10 mg PO DAILY 10/21/21 10/21/21 10/21/21 History hydroxyzine pamoate 25 mg capsule 25 mg PO BID 10/21/21 10/21/21 10/21/21 History lisinopril 10 mg tablet 20 mg PO DAILY 10/21/21 10/21/21 10/21/21 History metformin 500 mg tablet 500 mg PO DAILY 10/21/21 10/21/21 10/21/21 History metoprolol succinate 25 mg 25 mg PO DAILY 10/21/21 10/21/21 10/21/21 History tablet,extended release 24 hr mirtazapine 15 mg tablet 15 mg PO BEDTIME 10/21/21 10/21/21 10/20/21 History bzfiedtwmknq-nutbhzqp-udcumc tablet 1 tab PO DAILY 10/21/21 10/21/21 10/21/21 History nitroglycerin 0.4 mg sublingual 0.4 mg SUBLINGUAL Q5M PRN 10/21/21 10/21/21 Unknown History tablet (Nitrostat) omega 0-zmu-wkl-fish oil 60 mg-90 1 cap PO DAILY 10/21/21 10/21/21 10/21/21 History mg-500 mg capsule (Fish Oil) potassium gluconate 595 mg (99 mg) 595 mg PO DAILY 10/21/21 10/21/21 10/21/21 History tablet prazosin 2 mg capsule 1 mg PO BEDTIME 10/21/21 10/21/21 10/20/21 History quetiapine 100 mg tablet 100 mg PO DAILY 10/21/21 10/21/21 10/21/21 History risperidone 2 mg tablet 2 mg PO DAILY 10/21/21 10/21/21 10/21/21 History ropinirole 0.25 mg tablet 0.25 mg PO DAILY 10/21/21 10/21/21 10/21/21 History testosterone cypionate 200 mg/mL 200 mg SUBCUT Q14D 10/21/21 10/21/21 10/13/21 History intramuscular oil timolol maleate 0.5 % eye drops 1 drp OPHTHALMIC (EYE) DAILY 10/21/21 10/21/21 Unknown History venlafaxine 150 mg 150 mg PO DAILY 10/21/21 10/21/21 10/21/21 History capsule,extended release 24 hr venlafaxine 75 mg capsule,extended 75 mg PO DAILY 10/21/21 10/21/21 10/21/21 History release 24 hr Allergies Allergy/AdvReac Type Severity Reaction Status Date / Time ticagrelor [From Brilinta] Allergy Unknown ALGY-Hives Verified 10/21/21 13:18 trazodone Allergy Unknown ADR-Nightma Verified 10/21/21 13:18 re Current Medications Generic Name Dose Route Start Last Admin Trade Name Freq PRN Reason Stop Dose Admin Nitroglycerin/Dextrose 50 mg in 250 mls @ 0 mls/hr 10/21/21 14:30 10/21/21 15:01 Nitroglycerin Drip IV 5 mcg/min .Q0M SAVANAH 1.5 mls/hr Administration Protocol Per Protocol Nitroglycerin 0.4 mg 10/21/21 11:56 10/21/21 12:15 Nitroglycerin 0.4 Mg Sublingual Tablet SUBLINGUAL 0.4 tab Q5M PRN Administration CHEST PAIN PFSH Acute PFSH: Medical History (Updated 10/22/21 @ 12:06 by Jose Ugarte M.D) Afib CAD (coronary artery disease) Chronic anticoagulation Diabetes HTN (hypertension) Pacemaker SSS (sick sinus syndrome) Transaminitis Surgical History Gastric banding status S/P placement of cardiac pacemaker Status post cholecystectomy Family History Father CAD (coronary artery disease) Mother Cancer Social History Smoking and tobacco status: never smoked Alcohol intake: never Household members: spouse Housing: House Vitals/I&O/Wt Last Vital Signs Temp 98.6 F 10/21/21 16:18 Pulse 95 10/21/21 16:18 Resp 16 10/21/21 16:18 BP 115/69 10/21/21 16:18 Pulse Ox 95 10/21/21 16:18 Weight last 48 hrs Weight 240 lb Physical Exam Narrative: GENERAL: Patient is alert, awake and oriented x3. [] NECK: No jugular vein distension. [] HEENT: No cyanosis. No icterus. No pallor. [] HEART: Regular S1 and S2. No murmur, rub or gallop. [] LUNGS: Clear to auscultate bilaterally. [] ABDOMEN: Soft, nontender and nondistended. Positive bowel sounds. No guarding, rebound or tenderness. [] CENTRAL NERVOUS SYSTEM: Grossly nonfocal. [] EXTREMITIES: Lower extremities with 1+ edema bilaterally. Pulses palpable in the lower extremities, both dorsalis pedis and posterior tibial. [] Data : 10/22/21 02:54 10/22/21 02:54 A&P Assessment and plan (1) Chest pain: Status: Acute (2) Atrial fibrillation: Status: Acute (3) CAD (coronary artery disease): Status: Acute (4) Diabetes: Status: Acute (5) HTN (hypertension): Status: Acute Plan Patient has presented with worsening chest pain symptoms. Went into ventricular tachycardia in the ER. Also says that he feels he was shocked today x2. We will obtain a device interrogation. Given his persistent chest pain that is worsening, and multiple VT episodes will proceed with coronary angiogram urgently. Continue nitro drip Order echocardiogram. Keep n.p.o. Patient will be admitted to the ICU. Thank you for involving us with care of this patient. We will continue to follow. Please call with questions. Coding Level of Care Code Acute [employer] Representatives for Shreyasg Fwd Diagnoses Chest pain R07.9 Atrial fibrillation I48.91 CAD (coronary artery disease) I25.10 Diabetes E11.9 HTN (hypertension) I10
--- NOTE | 2021-10-21 16:23 | W.PM.OPSUD ---
Surgery/Procedure H&P Update DATE OF PROCEDURE: October 21, 2021 DATE H&P PERFORMED: 10/21/21 H&P UPDATE INFORMATION: I have reviewed H&P completed within last 30 days, I have examined patient prior to procedure and No changes to prior documentation PREOP DIAGNOSIS: Unstable angina/ Ventricular tachycardia PRIMARY INDICATION FOR PROCEDURE: Unstable angina/Ventricular tachycardia PLANNED PROCEDURE: Left heart cath with possible percutaneous coronary intervention PATIENT REASSESSED PRIOR TO SEDATION, WITH NO CHANGE NOTED: Yes PHYSICAL EXAM: alert, oriented x 3, clear to auscultation bilaterally and regular rate & rhythm AIRWAY EVAL/ANESTHESIA PLAN: normal airway, ASA III, Monitored Anesthesia, Local Anesthesia, Risks, benefits & alternatives of sedation and/or procedure discussed and Patient agrees to continue as planned
--- NOTE | 2021-10-21 17:42 | ECG_ITS ---
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 Measurements Intervals [place] Rate: 89 P: 35 SC: 135 QRS: 6 QRSD: 102 T: 12 QT: 281 QTc: 343 Interpretive Statements SINUS RHYTHM LOW QRS VOLTAGE IN PRECORDIAL LEADS [QRS DEFLECTION < 1.0 mV IN CHEST LEADS] POSSIBLE RIGHT VENTRICULAR CONDUCTION DELAY [RSR (QR) IN V1/V2] NONSPECIFIC T-WAVE ABNORMALITY Compared to ECG 10/21/2021 11:52:46 No significant changes Electronically Signed On 10-22-2021 20:25:37 CDT by Jose Ugarte M.D. [id number]
--- NOTE | 2021-10-21 18:45 | P.HP_ITS ---
Providers/Chief Complaint Admitting Physician: Irene Mohr MD Primary Care Provider: Livia Ridley MD Chief Complaint: Chest pain, dizzy History of Present Illness Jeremie Alexander is a 61 year old male 61 yo WM w/ h/o HYN, CAD, DM, At Fib, SSS s/p PCM came to the ED c/o CP, SOB for 3 days. His CP habeen gradually getting worse becoming moderately severe this morning. Has associated SOB and VALENCIA especially today. The CP is non radiating and not related to activity or food. Denies f/c. Cough is mild and non productive. In the ED he had a 45 sec run of Vtach. Cardilogy was consulted and pt was taken to the labor custodian for coronary angioogram. 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 Psych: denied depression Medications/Allergies Home Medications Medication Instructions Recorded Confirmed Last Taken Type apixaban 5 mg tablet (Eliquis) 5 mg PO BID 11/23/20 10/21/21 10/21/21 History clopidogrel 75 mg tablet (Plavix) 75 mg PO DAILY 11/23/20 10/21/21 10/21/21 History cyproheptadine 4 mg tablet 4 mg PO BEDTIME 11/23/20 10/21/21 10/20/21 History desvenlafaxine succinate 50 mg 50 mg PO DAILY 11/23/20 10/21/21 10/21/21 History tablet,extended release 24 hr ferrous sulfate 325 mg (65 mg 325 mg PO BID 11/23/20 10/21/21 10/21/21 History iron) tablet ranolazine 500 mg tablet,extended 500 mg PO BID 11/23/20 10/21/21 10/21/21 History release,12 hr rosuvastatin 20 mg tablet (Crestor) 20 mg PO DAILY 11/23/20 10/21/21 10/21/21 History tamsulosin 0.4 mg capsule 0.4 mg PO DAILY 11/23/20 10/21/2122 History amiodarone 200 mg tablet 200 mg PO DAILY 10/21/21 10/21/21 10/21/21 History amlodipine 5 mg tablet 5 mg PO DAILY 10/21/21 10/21/21 10/21/21 History aripiprazole 15 mg tablet 15 mg PO DAILY 10/21/21 10/21/21 10/21/21 History clobetasol 0.05 % topical ointment 1 applic TOPICAL DAILY 10/21/21 10/21/21 10/21/21 History cyanocobalamin (B12)-cobamamide 1 fito SUBLINGUAL DAILY 10/21/21 10/21/21 10/21/21 History 5,000 mcg-100 mcg sublingual lozenge (B12) fluoxetine 10 mg capsule 10 mg PO DAILY 10/21/21 10/21/21 10/21/21 History hydroxyzine pamoate 25 mg capsule 25 mg PO BID 10/21/21 10/21/21 10/21/21 History lisinopril 10 mg tablet 20 mg PO DAILY 10/21/21 10/21/21 10/21/21 History metformin 500 mg tablet 500 mg PO DAILY 10/21/21 10/21/21 10/21/21 History metoprolol succinate 25 mg 25 mg PO DAILY 10/21/21 10/21/21 10/21/21 History tablet,extended release 24 hr mirtazapine 15 mg tablet 15 mg PO BEDTIME 10/21/21 10/21/21 10/20/21 History iafbkriqjdrd-npcftxgr-ywqkej tablet 1 tab PO DAILY 10/21/21 10/21/21 10/21/21 History nitroglycerin 0.4 mg sublingual 0.4 mg SUBLINGUAL Q5M PRN 10/21/21 10/21/21 Unknown History tablet (Nitrostat) omega 0-tyn-pfz-fish oil 60 mg-90 1 cap PO DAILY 10/21/21 10/21/21 10/21/21 History mg-500 mg capsule (Fish Oil) potassium gluconate 595 mg (99 mg) 595 mg PO DAILY 10/21/21 10/21/21 10/21/21 History tablet prazosin 2 mg capsule 1 mg PO BEDTIME 10/21/21 10/21/21 10/20/21 History quetiapine 100 mg tablet 100 mg PO DAILY 10/21/21 10/21/21 10/21/21 History risperidone 2 mg tablet 2 mg PO DAILY 10/21/21 10/21/21 10/21/21 History ropinirole 0.25 mg tablet 0.25 mg PO DAILY 10/21/21 10/21/21 10/21/21 History testosterone cypionate 200 mg/mL 200 mg SUBCUT Q14D 10/21/21 10/21/21 10/13/21 History intramuscular oil timolol maleate 0.5 % eye drops 1 drp OPHTHALMIC (EYE) DAILY 10/21/21 10/21/21 Unknown History venlafaxine 150 mg 150 mg PO DAILY 10/21/21 10/21/21 10/21/21 History capsule,extended release 24 hr venlafaxine 75 mg capsule,extended 75 mg PO DAILY 10/21/21 10/21/21 10/21/21 History release 24 hr Allergies Allergy/AdvReac Type Severity Reaction Status Date / Time ticagrelor [From Brilinta] Allergy Unknown ALGY-Hives Verified 10/21/21 13:18 trazodone Allergy Unknown ADR-Nightma Verified 10/21/21 13:18 re PFSH Acute PFSH: Medical History (Updated 10/22/21 @ 17:14 by Irene Mohr MD) Afib CAD (coronary artery disease) Chronic anticoagulation Diabetes HTN (hypertension) Pacemaker SSS (sick sinus syndrome) Transaminitis Surgical History Gastric banding status S/P placement of cardiac pacemaker Status post cholecystectomy Family History Father CAD (coronary artery disease) Mother Cancer Social History Smoking and tobacco status: never smoked Alcohol intake: never Household members: spouse Housing: House Vitals/I&O/Wt Last Vital Signs Temp 98.0 F 10/22/21 04:00 Pulse 92 10/22/21 16:00 Resp 18 10/22/21 16:00 BP 135/87 10/22/21 14:00 Pulse Ox 94 10/22/21 16:00 10/22/21 10/22/2110/22/22 06:59 14:59 22:59 Intake Total 512.4 / 930.55 480 / 480 Output Total 400 / 750 1175 / 1175 250 / 1425 Balance 112.4 / 180.55 -695 / -695 -250 / -945 Weight last 48 hrs Weight 108.862 kg Weight 108.862 kg Physical Exam Narrative: NAD HEENT: EOMI, PERLLA, Throat (-), Anicteric sclera Neck: supple, Thy (-), LN (-), Bruit (-) CVS S1S2, RRR, Mur (-) Resp: CTA Abd : soft epigastric mild tender, BS+, HSM (-) Skel: Edema trace, No deformity 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 Grossly intact Data : 10/22/21 02:54 10/22/21 02:54 A&P Assessment and plan (1) Chest pain: Has h/o CAD s/p stents. ACS needs to be r/o. Possibly also due to esophagitis, Anxiety Dis Status: Acute (2) CAD (coronary artery disease): Has pain may be due to CAD Status: Acute (3) Diabetes: Will f/u BS Status: Acute (4) Atrial fibrillation: NSR Status: Acute (5) HTN (hypertension): stable Status: Acute (6) Major depressive disorder, recurrent severe without psychotic features: stable Status: Acute (7) History of posttraumatic stress disorder (PTSD): stable Status: Acute (8) Tachycardia: Had a run of Vtach of 45 sec in the ED Status: Acute Plan Cardiology consult Cardiac cath ECHO Sydnie x4 ECG Resume home meds Protonix 40 mg qd DVT prophylaxis w/ Lovenox Attestations Medical Necessity Statement*: Has h/o CAD s/p stent, SSS s/p PCM, run of Vtach. ACS needs to be r/o. Will need inpatient admission for further evaluation and management. To have cardiac cath Time Spent in Patient Care: 45 min Critical Care Time: 15 min Coding Level of Care Code Acute Sodium Methylate Operator for Shreyasg Fwd Diagnoses Chest pain R07.9 CAD (coronary artery disease) I25.10 Diabetes E11.9 Atrial fibrillation I48.91 HTN (hypertension) I10 Major depressive disorder, recurrent severe without psychotic features F33.2 History of posttraumatic stress disorder (PTSD) Z86.59 Tachycardia R00.0
[2021-10-21 18:50] LABS: Troponin 5 6HR 12.93 ng/L (0-15)
[2021-10-21 18:53] LABS: Troponin 5 6HR Delta -3.07 ng/L (0-12)
--- NOTE | 2021-10-21 19:07 | PC.NURSE ---
Patient to ICU from Deck Officer in ICU bed. Right radial puncture site with TR band in place with 14 ml instilled, right femoral puncture site with pressure dressing in place C/D/I. Patient in supine position with HOB 15 degree.
[2021-10-21] MEDS: morphine 4 mg/mL SDV 1 mL 2 MG IVP (19:10)
[2021-10-21] MEDS: mirtazapine 15 mg Tablet PO (22:19)
--- NOTE | 2021-10-21 22:29 | PC.NURSE ---
2000 TR Band right radial in place to 12cc no hematoma 2014 decreased to 10cc air in TR band 2029 decreased to 8cc air in TR Band 2044 TR BAND decreased air to 6 cc 2099 TR BAND decreased air to 4cc 2114 TR BAND decreased air to 2cc [address] all air removed 0cc no hematoma pulse intact 2230 TR Band removed dsg applied no hematoma PPP
[2021-10-22] VITALS (34 sets, daily range): BP systolic 104–173; BP diastolic 50–93; PULSE 81–96; RESP 10–22; TEMP 36.7–37.6; O2SAT 86–96
[2021-10-22] MEDS: morphine 4 mg/mL SDV 1 mL 2 MG IVP ×4 (00:48→18:18)
[2021-10-22 03:26] LABS: Basophils % 0.7 %; Eosinophils # 0.1 10^3/uL (0.0-0.8); Eosinophils % 2.7 %; Hematocrit 35.4 % (42.0-52.0); Hemoglobin 11.5 g/dL (11.7-16.6); Lymphocytes # 0.9 10^3/uL (0.8-4.8); Lymphocytes % 22.7 %; Mean Corpuscular HGB Conc 32.5 g/dL (30.0-36.0); Mean Corpuscular Hemoglobin 31.7 pg (28.0-34.0); Mean Corpuscular Volume 97.5 fl (80-94); Mean Platelet Volume 10.5 fL (7.4-10.4); Monocytes # 0.5 10^3/uL (0.2-0.9); Monocytes % 11.2 %; Neutrophils # 2.55 10^3/uL (1.8-7.7); Neutrophils % 62.5 %; Nucleated Red Blood Cells % 0 %; Platelet Count 185 10^3/cmm (130-400); Red Blood Count 3.63 10^6/uL (4.1-5.3); Red Cell Distribution Width 14.1 % (12.1-15.1); White Blood Count 4.1 10^3/uL (4.0-10.0)
[2021-10-22 03:42] LABS: Alanine Aminotransferase 147 U/L (0-41); Albumin Level 3.3 g/dL (3.5-5.2); Alkaline Phosphatase 157 IU/L (40-130); Anion Gap 12.8 (5-19); Aspartate Amino Transferase 143 U/L (0-40); Blood Urea Nitrogen 6 mg/dL (8-23); Calcium 8.9 mg/dL (8.5-10.5); Carbon Dioxide 26 mmol/L (22-29); Chloride 102 mmol/L (98-107); Creatinine Clr Calc Pharmacy 95.9072; Globulin 2.6 g/dL (1.3-4.6); Glomerular Filtration Rate 86.1 mL/min (90-130); Glucose 105 mg/dL (65-115); Osmolality Calculated 282 mOsm/kg (285-295); Potassium 3.8 mmol/L (3.5-5.1); Sodium 137 mmol/L (136-145); Total Bilirubin 0.4 mg/dL (0.15-1.2); Total Protein 5.9 g/dL (6.6-8.7)
--- NOTE | 2021-10-22 07:15 | USCV_ITS ---
Jeremie Alexander Age: 61 Gender: M : 1960 Exam Date: 10/22/2021 07:54 Ordering Phys: Jose Ugarte M.D ([email or web address]) Technologist: NICOLE Exam Location: [facility] [place] Indication: CHEST PAIN BP: 173 / 85 HR: 83 Rhythm: Sinus Technical Quality: Adequate MEASUREMENTS (Male / Female) Normal Values 2D ECHO LV Diastolic Diameter PLAX 3.9 cm 4.2 - 5.9 / 3.9 - 5.3 cm LV Systolic Diameter PLAX 2.5 cm IVS Diastolic Thickness 1.1 cm 0.6 - 1.0 / 0.6 - 0.9 cm IVS Systolic Thickness 1.6 cm LVPW Diastolic Thickness 1.3 cm 0.6 - 1.0 / 0.6 - 0.9 cm LVPW Systolic Thickness 1.5 cm LVOT Diameter 2.0 cm LV Ejection Fraction 2D Teich 67.6 % LV Ejection Fraction MOD 2C 62.7 % LV Ejection Fraction 2C AL 61.5 % LA Diameter 4.0 cm Aorta at Sinotubular Diameter 2.0 cm M-MODE Aortic Annulus Diameter 3.0 cm LA Ao Ratio MM 1.5 MV E Point Septal Separation 0.5 cm DOPPLER AV Peak Velocity 130.0 cm/s LVOT Peak Velocity 95.0 cm/s AV Area Cont Eq vti 2.3 cm squared AV Area Cont Eq pk 2.3 cm squared MV Area PHT 3.7 cm squared Mitral E to A Ratio 1.0 MV E' Velocity 35.0 cm/s Mitral E to MV E' Ratio 5.8 Mitral E to LV E' Lateral Ratio 5.0 Mitral E to LV E' Septal Ratio 6.8 TR Peak Velocity 314.0 cm/s TR Peak Gradient 39.4 mmHg TV Peak E Velocity 51.0 cm/s Right Atrial Pressure 8.0 mmHg Pulmonary Artery Systolic Pressu 47.4 mmHg PV Peak Velocity 145.0 cm/s RV Acceleration Time 0.2 s RV Ejection Time 0.3 s RV AcT/ET 0.6 FINDINGS Left Ventricle Normal left ventricular size. LV systolic function is normal with EF of 60-65%. No regional wall motion abnormalities. Grade 1 diastolic dysfunction Right Ventricle The right ventricle is normal in size and function. Right Atrium The right atrium is normal in size. Left Atrium The left atrium is normal in size. Mitral Valve Structurally normal mitral valve without significant stenosis or prolapse. There is no mitral regurgitation. Aortic Valve Aortic valve is thickened without significant stenosis. There is no aortic regurgitation. Tricuspid Valve Structurally normal tricuspid valve without significant stenosis or regurgitation. Insufficient TR jet to calculate RVSP Pulmonic Valve Not well visualized Pericardium Normal pericardium without effusion. Aorta Normal ascending aorta dimension. CONCLUSIONS LV systolic function is normal with EF of 60-65% Grade 1 diastolic dysfunction No significant valvular disease Compared to prior echocardiogram from 11/24/2020, no significant chnges are seen Jose Ugarte MD (Electronically Signed) Final Date: 22 October 2021 17:55 S
[2021-10-22] MEDS: perflutren protein-a microsphr 0.22 mg/mL SDV 3 mL IV (08:13)
[2021-10-22] MEDS: pantoprazole DR 40 mg Tablet PO ×2 (09:12→18:19)
[2021-10-22] MEDS: risperiDONE 2 mg Tablet PO (09:12)
[2021-10-22] MEDS: quetiapine 100 mg Tablet PO (09:12)
[2021-10-22] MEDS: tamsulosin 0.4 mg Capsule PO (09:13)
[2021-10-22] MEDS: ARIPiprazole 10 mg Tablet 15 MG PO (09:13)
[2021-10-22] MEDS: atorvastatin 40 mg Tablet 80 MG PO (09:13)
[2021-10-22] MEDS: amiodarone 200 mg Tablet PO (09:13)
[2021-10-22] MEDS: ropinirole 0.25 mg Tablet PO (09:13)
[2021-10-22] MEDS: ferrous sulfate EC 325 mg Tablet PO ×2 (09:13→18:19)
[2021-10-22] MEDS: metoprolol succinate ER (24 HR) 25 mg Tablet PO (09:13)
[2021-10-22] MEDS: apixaban 5 mg Tablet PO ×2 (09:13→18:19)
[2021-10-22] MEDS: ranolazine (12HR) 500 mg Tablet PO ×2 (09:13→18:19)
[2021-10-22] MEDS: timolol 0.5% Op Soln 5 mL Btl 1 DROP EYE-BOTH (09:14)
[2021-10-22] MEDS: fluoxetine 10 mg Capsule PO (09:14)
[2021-10-22] MEDS: clopidogrel 75 mg Tablet PO (09:14)
--- NOTE | 2021-10-22 09:30 | P.PN_ITS ---
Subjective Subjective: Pt still has CP but less. Denied SOB, palpitation Had cardiac cathere yesterday. Showed normal/patent coronariry art Vitals/I&O/Wt Last Vital Signs Temp 97.8 F 10/24/21 07:01 Pulse 74 10/24/21 10:56 Resp 18 10/24/21 12:33 BP 137/72 10/24/21 10:56 Pulse Ox 96 10/24/21 12:33 10/24/21 10/24/21 10/24/21 06:59 14:59 22:59 Intake Total 50 / 820 916 / 916 Output Total 200 / 1775 800 / 800 Balance -150 / -955 116 / 116 Weight last 48 hrs Weight 108.862 kg Weight 108.862 kg Physical Exam Narrative: NAD HEENT: EOMI, PERLLA, Throat (-), Anicteric sclera Neck: supple, Thy (-), LN (-), Bruit (-) CVS S1S2, RRR, Mur (-) Resp: CTA Abd : soft epigastric mild tender, BS+, HSM (-) Skel: Edema trace, No deformity 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 Grossly intact Data : 10/24/21 05:08 10/24/21 05:08 Micro: Microbiology 10/23/21 18:00 Blood Culture - Preliminary Blood SPECIMEN COLLECTED 10/23/21 18:05 Blood Culture - Preliminary Blood SPECIMEN COLLECTED A&P Assessment and plan (1) Tachycardia: rate controlled now Status: Acute (2) HTN (hypertension): stable Status: Acute (3) Atrial fibrillation: rate controlled Status: Acute (4) Diabetes: Status: Acute (5) CAD (coronary artery disease): Status: Acute (6) Major depressive disorder, recurrent severe without psychotic features: Status: Acute (7) Chest pain: Has Lt CP probably not cardiac. Cardiac Cath neg Status: Acute Plan R/O other non cardiac cause of CP matt resp, GERD Continue pain management Bronchodilators DVT Prophalaxsis Protonix Attestations Medical Necessity Statement*: Pt still in CP, mild dyspnea w/ an episode of Vtach. Will need further care and mannagement with continuing hospitalization Coding Level of Care Code Acute Software Product Manager for [facility] Fwd Diagnoses Tachycardia R00.0 HTN (hypertension) I10 Atrial fibrillation I48.91 Diabetes E11.9 CAD (coronary artery disease) I25.10 Major depressive disorder, recurrent severe without psychotic features F33.2 Chest pain R07.9
--- NOTE | 2021-10-22 12:00 | PC.CHAP ---
Pastoral Care Encounter/Spiritual Assessment Type of Contact [] Declined zinc plater visit [] Patient/Family/Request visit [] Outpatient visit [] Follow-up visit [] Physician referral [] Code/Alert [x] Routine visit [] Staff referral [] Actively dying [] Patient sleeping [] Family support [] [] Out of room [] Palliative care [] [] Receiving care in room [] Pre-surgical visit [] Trauma [] Long length of stay [x] ICU visit [x] Other: patient busy on phone Relational/Emotional Strength [] Patient feels connected with others/family/visitors/staff [] Distress [] Loneliness/isolation [] Abandonment Spirituality of Patient [] Person of Sherrie [] Attends Jehovah'S Witness of their Sherrie [] Believes in Prayer [] Reads Bible or Baptism materials [] There are Spiritual issues to be addressed Cassandra Architect Interventions [x] Prayer [] Active listening [] Non-anxious presence [] Spiritual/emotional support [] Crisis/trauma care [] Spiritual counseling [] Bereavement support [] Provided bereavement packet [] Provided Bible/devotional materials [] Provided toy/stuffed animal, coloring book to patient or family member [] Provided Communion [] Anointing/[place] [] Salvation [x] Completed spiritual assessment [] Other: Impact on Illness or Injury [] Angry [] Fearful [] Anxious [] Often cries [] Exhaustion [] Unable to work [] Unable to attend gnosticist [] Unable to walk/stand [] Unable to read [] Unable to drive [] Unable to eat/drink [] Unable to sleep [] Unable to be with family [] Patient intubated [] Other: Summary Time spent with patient
--- NOTE | 2021-10-22 12:08 | P.PN_ITS ---
Subjective Subjective: Patient had urgent cath performed yesterday as was having chest pain and had 45 seconds run of Vtach. Ostial LAD had moderate stenosis and was hazy. We performed IFR which was nonischemic. We then performed IVUS which did not show any thrombus. Haziness was secondary to his calcification. Continues having chest discomfort. However no EKG changes and troponins have not increased. Vitals/I&O/Wt Last Vital Signs Temp 98.0 F 10/22/21 04:00 Pulse 86 10/22/21 09:00 Resp 16 10/22/21 11:49 BP 155/88 10/22/21 09:00 Pulse Ox 96 10/22/21 11:49 10/21/21 10/22/21 10/22/21 22:59 06:59 14:59 Intake Total 418.15 / 418.15 512.4 / 930.55 240 / 240 Output Total 350 / 350 400 / 750 875 / 875 Balance 68.15 / 68.15 112.4 / 180.55 -635 / -635 Weight last 48 hrs Weight 240 lb Weight 240 lb Physical Exam Narrative: GENERAL: Patient is alert, awake and oriented x3. [] NECK: No jugular vein distension. [] HEENT: No cyanosis. No icterus. No pallor. [] HEART: Regular S1 and S2. No murmur, rub or gallop. [] LUNGS: Clear to auscultate bilaterally. [] ABDOMEN: Soft, nontender and nondistended. Positive bowel sounds. No guarding, rebound or tenderness. [] CENTRAL NERVOUS SYSTEM: Grossly nonfocal. [] EXTREMITIES: Lower extremities with 1+ edema bilaterally. Pulses palpable in the lower extremities, both dorsalis pedis and posterior tibial. [] Data : 10/22/21 02:54 10/22/21 02:54 A&P Assessment and plan (1) Chest pain: Status: Acute (2) Atrial fibrillation: Status: Acute (3) CAD (coronary artery disease): Status: Acute (4) Diabetes: Status: Acute (5) HTN (hypertension): Status: Acute Plan Patient has presented with worsening chest pain symptoms. Went into ventricular tachycardia in the ER. Also says that he feels he was shocked yesterday twice Patient underwent urgent coronary angiogram yesterday that showed moderate ostial LAD stenosis that was hazy. iFR was performed that was not ischemic. IVUS was also performed to rule out thrombus formation. Haziness was secondary to calcification. Medical therapy was decided. He continues having chest discomfort however now appears to be atypical. No troponin elevation no EKG changes. Device was interrogated today that did not show defibrillation. Patient can be transferred out of ICU. Echocardiogram shows normal LV systolic function. Can resume Eliquis now. Thank you for involving us with care of this patient. We will continue to follow. Please call with questions. Attestations Medical Necessity Statement*: Care expected to cross 2 midnights. 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
--- NOTE | 2021-10-22 13:01 | PC.NURSE ---
AICD interrogation Patient tells nurse that he has a [employer] pacemaker. No [employer] interrogator in hospital or cardiac clinic. This nurse called [employer], they will send rep to interrogate.
--- NOTE | 2021-10-22 16:14 | PC.NURSE ---
AICD interrogation noted no defibrillation, no SVT, no issues other than noted AFib. Printout placed in chart.
[2021-10-22] MEDS: prazosin 1 mg Capsule PO (20:16)
[2021-10-22] MEDS: mirtazapine 15 mg Tablet PO (20:16)
[2021-10-23] VITALS (26 sets, daily range): BP systolic 78–161; BP diastolic 42–76; PULSE 69–117; RESP 12–25; TEMP 37.1–39.2; O2SAT 90–100
--- NOTE | 2021-10-23 00:27 | PC.NURSE ---
0030 Reported off to AFSHIN Nunez on med surg room 253-1 VSS Pt taken by wheelchair
[2021-10-23] MEDS: morphine 4 mg/mL SDV 1 mL 2 MG IVP ×4 (02:18→20:18)
--- NOTE | 2021-10-23 02:38 | XRR_ITS ---
PROCEDURE INFORMATION: Exam: XR Chest Exam date and time: 10/23/2021 2:38 AM Age: 61 years old Clinical indication: Shortness of breath; Prior surgery; Surgery type: Pacer; Patient HX: New onset of SOB. TECHNIQUE: Imaging protocol: XR of the chest. Views: 1 view. COMPARISON: CR XR chest 1V portable [id number] 10/21/2021 10:58 AM FINDINGS: Tubes, catheters and devices: Stable left pacemaker. Lungs: Mild left retrocardiac pneumonia. Pleural spaces: Unremarkable. No pleural effusion. No pneumothorax. Heart/Mediastinum: Unremarkable. No cardiomegaly. Bones/joints: Unremarkable. XR/XR chest 1V [id number] IMPRESSION: Mild left retrocardiac pneumonia.
[2021-10-23] MEDS: ipratropium-albuterol 3 mL Neb INHALATION (02:57)
[2021-10-23] MEDS: acetaminophen 325 mg Tablet 650 MG PO ×2 (03:39→11:44)
[2021-10-23 05:02] LABS: Basophils % 0.2 %; Eosinophils # 0.1 10^3/uL (0.0-0.8); Eosinophils % 1.8 %; Hematocrit 36.1 % (42.0-52.0); Hemoglobin 11.7 g/dL (11.7-16.6); Lymphocytes # 0.5 10^3/uL (0.8-4.8); Lymphocytes % 9.2 %; Mean Corpuscular HGB Conc 32.4 g/dL (30.0-36.0); Mean Corpuscular Hemoglobin 31.5 pg (28.0-34.0); Monocytes # 0.3 10^3/uL (0.2-0.9); Monocytes % 5.1 %; Neutrophils # 4.09 10^3/uL (1.8-7.7); Neutrophils % 83.3 %; Nucleated Red Blood Cells % 0 %; Platelet Count 181 10^3/cmm (130-400); Red Blood Count 3.72 10^6/uL (4.1-5.3); Red Cell Distribution Width 14.1 % (12.1-15.1); White Blood Count 4.9 10^3/uL (4.0-10.0)
[2021-10-23 05:30] LABS: Alanine Aminotransferase 85 U/L (0-41); Albumin Level 3.2 g/dL (3.5-5.2); Alkaline Phosphatase 142 IU/L (40-130); Anion Gap 14.8 (5-19); Aspartate Amino Transferase 37 U/L (0-40); Blood Urea Nitrogen 10 mg/dL (8-23); Calcium 8.6 mg/dL (8.5-10.5); Carbon Dioxide 25 mmol/L (22-29); Chloride 99 mmol/L (98-107); Creatinine Clr Calc Pharmacy 95.9072; Globulin 2.7 g/dL (1.3-4.6); Glomerular Filtration Rate 86.1 mL/min (90-130); Glucose 136 mg/dL (65-115); Osmolality Calculated 281 mOsm/kg (285-295); Potassium 3.8 mmol/L (3.5-5.1); Sodium 135 mmol/L (136-145); Total Bilirubin 0.5 mg/dL (0.15-1.2); Total Protein 5.9 g/dL (6.6-8.7)
[2021-10-23] MEDS: ranolazine (12HR) 500 mg Tablet PO ×2 (08:11→18:10)
[2021-10-23] MEDS: timolol 0.5% Op Soln 5 mL Btl 1 DROP EYE-BOTH (08:11)
[2021-10-23] MEDS: ARIPiprazole 10 mg Tablet 15 MG PO (08:11)
[2021-10-23] MEDS: fluoxetine 10 mg Capsule PO (08:12)
[2021-10-23] MEDS: quetiapine 100 mg Tablet PO (08:12)
[2021-10-23] MEDS: ferrous sulfate EC 325 mg Tablet PO ×2 (08:12→18:10)
[2021-10-23] MEDS: metoprolol succinate ER (24 HR) 25 mg Tablet PO (08:12)
[2021-10-23] MEDS: amiodarone 200 mg Tablet PO (08:12)
[2021-10-23] MEDS: tamsulosin 0.4 mg Capsule PO (08:12)
[2021-10-23] MEDS: pantoprazole DR 40 mg Tablet PO ×2 (08:12→18:10)
[2021-10-23] MEDS: ropinirole 0.25 mg Tablet PO (08:12)
[2021-10-23] MEDS: clopidogrel 75 mg Tablet PO (08:12)
[2021-10-23] MEDS: atorvastatin 40 mg Tablet 80 MG PO (08:13)
[2021-10-23] MEDS: apixaban 5 mg Tablet PO ×2 (08:13→18:10)
[2021-10-23] MEDS: risperiDONE 2 mg Tablet PO (08:22)
[2021-10-23] MEDS: ondansetron 2 mg/ML SDV 2 mL 4 MG IVP (08:31)
--- NOTE | 2021-10-23 10:16 | PM.PN ---
Subjective Subjective: Patient feels better compared to yesterday. Chest pain symptoms have improved. Vitals/I&O/Wt Last Vital Signs Temp 100.7 F H 10/23/21 06:36 Pulse 117 H 10/23/21 08:11 Resp 20 H 10/23/21 08:19 BP 161/69 10/23/21 00:00 Pulse Ox 97 10/23/21 08:19 10/22/21 10/23/21 10/23/21 22:59 06:59 14:59 Intake Total 660 / 1140 500 / 1640 240 / 240 Output Total 800 / 1975 925 / 2900 Balance -140 / -835 -425 / -1260 240 / 240 Weight last 48 hrs Weight 240 lb Weight 240 lb Weight 240 lb Physical Exam Narrative: GENERAL: Patient is alert, awake and oriented x3. [] NECK: No jugular vein distension. [] HEENT: No cyanosis. No icterus. No pallor. [] HEART: Regular S1 and S2. No murmur, rub or gallop. [] LUNGS: Clear to auscultate bilaterally. [] ABDOMEN: Soft, nontender and nondistended. Positive bowel sounds. No guarding, rebound or tenderness. [] CENTRAL NERVOUS SYSTEM: Grossly nonfocal. [] EXTREMITIES: Lower extremities with 1+ edema bilaterally. Pulses palpable in the lower extremities, both dorsalis pedis and posterior tibial. [] Data : 10/23/21 04:32 10/23/21 04:32 A&P Assessment and plan (1) Chest pain: Status: Acute (2) Atrial fibrillation: Status: Acute (3) CAD (coronary artery disease): Status: Acute (4) Diabetes: Status: Acute (5) HTN (hypertension): Status: Acute Plan Patient has presented with worsening chest pain symptoms. Went into ventricular tachycardia in the ER. Also says that he feels he was shocked yesterday twice Patient underwent urgent coronary angiogram on day of admission. It showed moderate ostial LAD stenosis that was hazy. iFR was performed that was not ischemic. IVUS was also performed to rule out thrombus formation. Haziness was secondary to calcification. Medical therapy was decided. Chest pain symptoms have improved but still has them on and off. No troponin elevation no EKG changes. Device was interrogated today that did not show defibrillation. Echocardiogram shows normal LV systolic function. He had febrile episodes last night and with continued chest pain, recommend CT chest Continue Eliquis and plavix Thank you for involving us with care of this patient. We will continue to follow. Please call with questions. Attestations Medical Necessity Statement*: Care expected to cross 2 midnights. Coding Level of Care Code Acute Representative Personal Service for [facility] Fwd Diagnoses Chest pain R07.9 Atrial fibrillation I48.91 CAD (coronary artery disease) I25.10 Diabetes E11.9 HTN (hypertension) I10
--- NOTE | 2021-10-23 11:40 | P.PN_ITS ---
Subjective Subjective: Early this am pt had developed sudden worsening lt sided CP w/ SOB. CTA was done showing Lt sided PNA. Pt still has CP pleuritic in nature. Denies F/C Vitals/I&O/Wt Last Vital Signs Temp 97.8 F 10/24/21 07:01 Pulse 74 10/24/21 10:56 Resp 18 10/24/21 12:33 BP 137/72 10/24/21 10:56 Pulse Ox 96 10/24/21 12:33 10/24/21 10/24/21 10/24/21 06:59 14:59 22:59 Intake Total 50 / 820 916 / 916 Output Total 200 / 1775 800 / 800 Balance -150 / -955 116 / 116 Weight last 48 hrs Weight 108.862 kg Weight 108.862 kg Physical Exam Narrative: NAD HEENT: EOMI, P ERLLA, Throat (-), Anicteric sclera Neck: supple, Thy (-), LN (-), Bruit (-) CVS S1S2, RRR , Mur (-) Resp: CT A Abd : soft epiga stric mild tender, BS+, HSM (-) Skel : Edema trace, No deformity 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 Grossly intac t Data : 10/24/21 05:08 10/24/21 05:08 Micro: Microbiology 10/23/21 18:00 Blood Culture - Preliminary Blood SPECIMEN COLLECTED 10/23/21 18:05 Blood Culture - Preliminary Blood SPECIMEN COLLECTED A&P Assessment and plan (1) Pneumonia: Lt sided PNA Has SOB, CP. COVID neg. But still likely to be viral w/ normal WBC Status: Acute (2) Chest pain: due to PNA Status: Acute (3) Tachycardia: NSR now Status: Acute (4) Atrial fibrillation: NSR Status: Acute (5) CAD (coronary artery disease): Status: Acute (6) HTN (hypertension): Status: Acute Plan Blood C/S Zosyn 3.375 gm q6 Bronchodilators Transfer pt to floor Attestations Medical Necessity Statement*: Pt has pneumonia, persisting chest pain, dyspnea. that needs to be further managed with continued hospitalization Coding Level of Care Code Acute Inside Meter Tester for [facility] Fw Diagnoses Pneumonia J18.9 Chest pain R07.9 Tachycardia R00.0 Atrial fibrillation I48.91 CAD (coronary artery disease) I25.10 HTN (hypertension) I10
--- NOTE | 2021-10-23 14:00 | CTR_ITS ---
PROCEDURE INFORMATION: Exam: CTA Chest With Contrast Exam date and time: 10/23/2021 3:27 PM Age: 61 years old Clinical indication: Shortness of breath; Additional info: Shortness of breath, possible pe TECHNIQUE: Imaging protocol: Computed tomographic angiography of the chest with contrast. 3D rendering (Not supervised by radiologist): MIP and/or 3D reconstructed images were created by the technologist. Radiation optimization: All CT scans at this facility use at least one of these dose optimization techniques: automated exposure control; mA and/or kV adjustment per patient size (includes targeted exams where dose is matched to clinical indication); or iterative reconstruction. Contrast material: OMNI 350; Contrast volume: 95 ml; Contrast route: INTRAVENOUS (IV); COMPARISON: CT chest wo con [id number] 11/24/2020 9:35 PM RADIATION DOSE METRICS: Total DLP (mGy-cm): 580.59 FINDINGS: Tubes, catheters and devices: Stable left pacemaker. Pulmonary arteries: No pulmonary embolus or aortic dissection. Aorta: Calcification of the thoracic aorta and/or great vessels consistent with atherosclerotic vessel disease. Great vessels off aortic arch: Aberrant origin of the right subclavian artery which is usually not associated with other congenital heart disease. This is essentially a normal variant. Lungs: Interval appearance of mild left upper lobe pneumonia with [id number] left lower lobe pneumonia. Pleural spaces: Unremarkable. No pneumothorax. No pleural effusion. Heart: Severe calcified coronary artery disease. Lymph nodes: Calcified right hilar nodes and/or mediastinal nodes and/or lung granulomas consistent with old granulomatous disease. Gallbladder and bile ducts: Stable cholecystectomy. Stomach and bowel: Stable gastric bypass surgery. Bones/joints: Moderate thoracic spondylosis. One or more healed right rib fractures. Soft tissues: Unremarkable. CT/CT angio chest PE protcl [id number] IMPRESSION: 1. Interval appearance of mild left upper lobe pneumonia with egrj-[id number]-vtwjihjh left lower lobe pneumonia. 2. Severe calcified coronary artery disease. 3. No pulmonary embolus or aortic dissection.
[2021-10-23] MEDS: iohexol 350 mg/mL 100 mL Btl IV (15:35)
[2021-10-23] MEDS: piperacillin-tazobactam 3.375 GM in sodium chloride 0.9% (plus) 50 ML IV (18:10)
--- NOTE | 2021-10-23 18:36 | PC.NURSE ---
Report called to AFSHIN Nunez on CSU. Patient to go to CSU 106, belongings with patient. Patient and family notified.
--- NOTE | 2021-10-23 19:35 | PC.NURSE ---
Transfer Note Patient transferred to CSU from ICU via bed. Handoff received from AFSHIN Ardon. Patient oriented to environment and equipment. Covering service notified. Orders reviewed and will continue to monitor. Patient AAOx4 at transfer. Telemetry placed. C/o recurring chest pain. Patient s/p LHC without PCI. Dressing to right groin removed. No s/s of bleeding or hematoma formation observed. Family and/or community representative notified. Instruction provided regarding morphine and plan of care. Patient verbalized understanding. Will continue to monitor.
[2021-10-23] MEDS: prazosin 1 mg Capsule PO (20:17)
[2021-10-23] MEDS: mirtazapine 15 mg Tablet PO (20:18)
[2021-10-24] VITALS (17 sets, daily range): BP systolic 114–156; BP diastolic 65–106; PULSE 70–82; RESP 13–20; TEMP 36.6–36.8; O2SAT 93–98
[2021-10-24] MEDS: piperacillin-tazobactam 3.375 GM in sodium chloride 0.9% (plus) 50 ML IV ×3 (01:45→17:14)
[2021-10-24] MEDS: morphine 4 mg/mL SDV 1 mL 2 MG IVP ×4 (03:19→18:35)
[2021-10-24 05:42] LABS: Basophils % 0.3 %; Eosinophils # 0.2 10^3/uL (0.0-0.8); Eosinophils % 2.4 %; Hematocrit 34.9 % (42.0-52.0); Hemoglobin 11.1 g/dL (11.7-16.6); Lymphocytes # 1.2 10^3/uL (0.8-4.8); Lymphocytes % 18.8 %; Mean Corpuscular HGB Conc 31.8 g/dL (30.0-36.0); Mean Corpuscular Hemoglobin 32.3 pg (28.0-34.0); Mean Corpuscular Volume 101.5 fl (80-94); Mean Platelet Volume 11.1 fL (7.4-10.4); Monocytes # 0.5 10^3/uL (0.2-0.9); Monocytes % 7.9 %; Neutrophils # 4.45 10^3/uL (1.8-7.7); Neutrophils % 70.3 %; Nucleated Red Blood Cells % 0 %; Platelet Count 174 10^3/cmm (130-400); Red Blood Count 3.44 10^6/uL (4.1-5.3); Red Cell Distribution Width 14.5 % (12.1-15.1); White Blood Count 6.3 10^3/uL (4.0-10.0)
[2021-10-24 06:03] LABS: Alanine Aminotransferase 53 U/L (0-41); Albumin Level 2.7 g/dL (3.5-5.2); Alkaline Phosphatase 116 IU/L (40-130); Aspartate Amino Transferase 22 U/L (0-40); Blood Urea Nitrogen 13 mg/dL (8-23); Calcium 8.7 mg/dL (8.5-10.5); Carbon Dioxide 27 mmol/L (22-29); Chloride 104 mmol/L (98-107); Creatinine Clr Calc Pharmacy 95.9072; Globulin 2.9 g/dL (1.3-4.6); Glomerular Filtration Rate 86.1 mL/min (90-130); Glucose 101 mg/dL (65-115); Osmolality Calculated 286 mOsm/kg (285-295); Sodium 138 mmol/L (136-145); Total Bilirubin 0.3 mg/dL (0.15-1.2); Total Protein 5.6 g/dL (6.6-8.7)
[2021-10-24 06:08] LABS: Anion Gap 11.5 (5-19); Potassium 4.5 mmol/L (3.5-5.1)
--- NOTE | 2021-10-24 06:25 | PC.NURSE ---
Shift Note Frequent safety and comfort rounds continue. Orders and/or nursing care completed as indicated. Patient monitored for response to intervention and treatment(s). Education provided includes morphine. Patient verbalized complete understanding. Patient denies needs at this time. No distress observed. Will continue to monitor.
--- NOTE | 2021-10-24 06:30 | PC.NURSE ---
This RN agrees with all documentation entered by SN. Nayla
[2021-10-24] MEDS: ipratropium-albuterol 3 mL Neb INHALATION (08:06)
[2021-10-24] MEDS: atorvastatin 40 mg Tablet 80 MG PO (08:43)
[2021-10-24] MEDS: ARIPiprazole 10 mg Tablet 15 MG PO (08:43)
[2021-10-24] MEDS: ranolazine (12HR) 500 mg Tablet PO ×2 (08:43→17:14)
[2021-10-24] MEDS: ropinirole 0.25 mg Tablet PO (08:43)
[2021-10-24] MEDS: tamsulosin 0.4 mg Capsule PO (08:44)
[2021-10-24] MEDS: ferrous sulfate EC 325 mg Tablet PO ×2 (08:44→17:14)
[2021-10-24] MEDS: quetiapine 100 mg Tablet PO (08:44)
[2021-10-24] MEDS: pantoprazole DR 40 mg Tablet PO ×2 (08:44→17:14)
[2021-10-24] MEDS: clopidogrel 75 mg Tablet PO (08:45)
[2021-10-24] MEDS: amiodarone 200 mg Tablet PO (08:45)
[2021-10-24] MEDS: metoprolol succinate ER (24 HR) 25 mg Tablet PO (08:46)
[2021-10-24] MEDS: apixaban 5 mg Tablet PO ×2 (08:46→17:14)
[2021-10-24] MEDS: timolol 0.5% Op Soln 5 mL Btl 1 DROP EYE-BOTH (08:54)
[2021-10-24] MEDS: risperiDONE 2 mg Tablet PO (08:54)
--- NOTE | 2021-10-24 09:04 | P.PN_ITS ---
Subjective Subjective: Patient continues having on and off chest pain. No shortness of breath. Found to have left sided pneumonia Vitals/I&O/Wt Last Vital Signs Temp 97.8 F 10/24/21 07:01 Pulse 82 10/24/21 08:09 Resp 18 10/24/21 08:41 BP 122/65 10/24/21 07:01 Pulse Ox 93 10/24/21 08:41 10/23/21 10/24/21 10/24/21 22:59 06:59 14:59 Intake Total 530 / 770 50 / 820 591 / 591 Output Total 775 / 1575 200 / 1775 Balance -245 / -805 -150 / -955 591 / 591 Weight last 48 hrs Weight 240 lb Weight 240 lb Physical Exam Narrative: GENERAL: Patient is alert, awake and oriented x3. [] NECK: No jugular vein distension. [] HEENT: No cyanosis. No icterus. No pallor. [] HEART: Regular S1 and S2. No murmur, rub or gallop. [] LUNGS: Clear to auscultate bilaterally. [] ABDOMEN: Soft, nontender and nondistended. Positive bowel sounds. No guarding, rebound or tenderness. [] CENTRAL NERVOUS SYSTEM: Grossly nonfocal. [] EXTREMITIES: Lower extremities with 1+ edema bilaterally. Pulses palpable in the lower extremities, both dorsalis pedis and posterior tibial. [] Data : 10/24/21 05:08 10/24/21 05:08 Micro: Microbiology 10/23/21 18:00 Blood Culture - Preliminary Blood SPECIMEN COLLECTED 10/23/21 18:05 Blood Culture - Preliminary Blood SPECIMEN COLLECTED A&P Assessment and plan (1) Chest pain: Status: Acute (2) Atrial fibrillation: Status: Acute (3) CAD (coronary artery disease): Status: Acute (4) Diabetes: Status: Acute (5) HTN (hypertension): Status: Acute (6) Pneumonia: Status: Acute Plan Patient presented with worsening chest pain symptoms. Went into ventricular tachycardia in the ER. Also said that he feels he was shocked twice before arrival to hospital Patient underwent urgent coronary angiogram on day of admission. It showed moderate ostial LAD stenosis that was hazy. iFR was performed that was not ischemic. IVUS was also performed to rule out thrombus formation. Haziness was secondary to calcification. Medical therapy was decided. Chest pain symptoms have improved but still has them on and off. No troponin elevation no EKG changes. Device was interrogated today that did not show defibrillation. Echocardiogram shows normal LV systolic function. Patient has pneumonia and getting treatment for that now with antibiotics secondary Continue Eliquis and plavix Thank you for involving us with care of this patient. We will continue to follow. Please call with questions. Attestations Medical Necessity Statement*: Care expected to cross 2 midnights. Coding Level of Care Code Acute Commission Agent Livestock for [facility] Fwd Diagnoses Chest pain R07.9 Atrial fibrillation I48.91 CAD (coronary artery disease) I25.10 Diabetes E11.9 HTN (hypertension) I10 Pneumonia J18.9
[2021-10-24] MEDS: fluoxetine 10 mg Capsule PO (10:37)
--- NOTE | 2021-10-24 15:49 | P.PN_ITS ---
Subjective Subjective: CP is a little better. Has tightness in his chest and mild cough. Denies f/c. Vitals/I&O/Wt Last Vital Signs Temp 97.8 F 10/24/21 07:01 Pulse 74 10/24/21 10:56 Resp 18 10/24/21 12:33 BP 137/72 10/24/21 10:56 Pulse Ox 96 10/24/21 12:33 10/24/21 10/24/21 10/24/21 06:59 14:59 22:59 Intake Total 50 / 820 916 / 916 Output Total 200 / 1775 800 / 800 Balance -150 / -955 116 / 116 Weight last 48 hrs Weight 108.862 kg Weight 108.862 kg Physical Exam Narrative: NAD HEENT: EOMI, P ERLLA, Throat (-), Anicteric sclera Neck: supple, Thy (-), LN (-), Bruit (-) CVS S1S2, RRR , Mur (-) Resp: BS + Exp Wheeze post on the left Abd : soft epigastric m ild tender, BS+, H SM (-) Skel: Edema trace, No deformi ty 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 Gr ossly intact Data : 10/24/21 05:08 10/24/21 05:08 Micro: Microbiology 10/23/21 18:00 Blood Culture - Preliminary Blood SPECIMEN COLLECTED 10/23/21 18:05 Blood Culture - Preliminary Blood SPECIMEN COLLECTED A&P Assessment and plan (1) Pneumonia: Lt sided PNA Probably viral Bd C/S pending Status: Acute (2) Chest pain: Less Status: Acute (3) Tachycardia: improved Status: Acute (4) Atrial fibrillation: Status: Acute (5) HTN (hypertension): Status: Acute (6) CAD (coronary artery disease): Status: Acute (7) Diabetes: Status: Acute Plan Solumedrol 80 mg IV q8 Continue Zosyn Day 2 F/U Bd C/S DVT prohylaxis GI Prophylaxis Attestations Medical Necessity Statement*: Pt has pneumonia, persisting chest p ain, dyspnea. that needs to be furth er managed with co ntinued hospitaliz ation Time Spent in Patient Care: 45 min Coding Level of Care Code Acute Scenario Writer for [facility] Fwd Diagnoses Pneumonia J18.9 Chest pain R07.9 Tachycardia R00.0 Atrial fibrillation I48.91 HTN (hypertension) I10 CAD (coronary artery disease) I25.10 Diabetes E11.9
[2021-10-24] MEDS: ondansetron 2 mg/ML SDV 2 mL 4 MG IVP (18:39)
--- NOTE | 2021-10-24 19:07 | PC.NURSE ---
Received bedside report from AFSHIN Nolan. Patient resting in bed watching TV eating cheese and crackers. Spouse at bedside. Patient denies other needs. Medication given for pain as ordered and documented by AFSHIN Nolan. No distress observed. Will continue to monitor.
[2021-10-24] MEDS: mirtazapine 15 mg Tablet PO (20:38)
[2021-10-24] MEDS: prazosin 1 mg Capsule PO (20:38)
[2021-10-25] VITALS (13 sets, daily range): BP systolic 133–179; BP diastolic 65–91; PULSE 72–95; RESP 11–20; TEMP 36.8; O2SAT 95–98
--- NOTE | 2021-10-25 02:10 | PC.NURSE ---
Patient does not have IV access at this time. Three RNs have made attempts without success. Informed Dr Ortiz of lateness of medications due. Received instructions from Dr Ortiz to just give medications late if necessary.
--- NOTE | 2021-10-25 02:23 | PC.NURSE ---
Received instruction from Dr Ortiz to place IV in patient's foot. IV access was obtained to left foot. Patient tolerated well.
[2021-10-25] MEDS: piperacillin-tazobactam 3.375 GM in sodium chloride 0.9% (plus) 50 ML IV ×3 (02:29→19:00)
[2021-10-25] MEDS: morphine 4 mg/mL SDV 1 mL 2 MG IVP ×2 (06:30→10:59)
--- NOTE | 2021-10-25 06:42 | PC.NURSE ---
Shift Note Frequent safety and comfort rounds continue. Orders and/or nursing care completed as indicated. Patient monitored for response to intervention and treatment(s). Education provided includes solumedrol. Patient verbalized complete understanding. Patient ambulating to bathroom ad brandon. Less frequent complaints of chest and neck pain. No distress observed.. Will continue to monitor.
[2021-10-25] MEDS: atorvastatin 40 mg Tablet 80 MG PO (08:44)
[2021-10-25] MEDS: ARIPiprazole 10 mg Tablet 15 MG PO (08:44)
[2021-10-25] MEDS: fluoxetine 10 mg Capsule PO (08:45)
[2021-10-25] MEDS: metoprolol succinate ER (24 HR) 25 mg Tablet PO (08:45)
[2021-10-25] MEDS: apixaban 5 mg Tablet PO ×2 (08:45→18:59)
[2021-10-25] MEDS: ropinirole 0.25 mg Tablet PO (08:46)
[2021-10-25] MEDS: quetiapine 100 mg Tablet PO (08:46)
[2021-10-25] MEDS: ranolazine (12HR) 500 mg Tablet PO ×2 (08:46→20:14)
[2021-10-25] MEDS: clopidogrel 75 mg Tablet PO (08:46)
[2021-10-25] MEDS: amiodarone 200 mg Tablet PO (08:46)
[2021-10-25] MEDS: pantoprazole DR 40 mg Tablet PO ×2 (08:46→18:59)
[2021-10-25] MEDS: tamsulosin 0.4 mg Capsule PO (08:47)
[2021-10-25] MEDS: timolol 0.5% Op Soln 5 mL Btl 1 DROP EYE-BOTH (08:47)
[2021-10-25] MEDS: ferrous sulfate EC 325 mg Tablet PO ×2 (08:48→18:59)
[2021-10-25] MEDS: risperiDONE 2 mg Tablet PO (09:15)
--- NOTE | 2021-10-25 09:51 | PM.PN ---
Subjective Subjective: Patient is feeling better today. Denies chest pain Vitals/I&O/Wt Last Vital Signs Temp 98.2 F 10/24/21 16:00 Pulse 80 10/25/21 08:47 Resp 16 10/25/21 08:47 BP 179/90 10/25/21 03:40 Pulse Ox 98 10/25/21 08:47 10/24/21 10/25/21 10/25/21 22:59 06:59 14:59 Intake Total 600 / 1516 290 / 1806 360 / 360 Output Total 1600 / 2400 300 / 2700 Balance -1000 / -884 -10 / -894 360 / 360 Weight last 48 hrs Weight 240 lb Weight 240 lb Physical Exam Narrative: GENERAL: Patient is alert, awake and oriented x3. [] NECK: No jugular vein distension. [] HEENT: No cyanosis. No icterus. No pallor. [] HEART: Regular S1 and S2. No murmur, rub or gallop. [] LUNGS: Clear to auscultate bilaterally. [] ABDOMEN: Soft, nontender and nondistended. Positive bowel sounds. No guarding, rebound or tenderness. [] CENTRAL NERVOUS SYSTEM: Grossly nonfocal. [] EXTREMITIES: Lower extremities with 1+ edema bilaterally. Pulses palpable in the lower extremities, both dorsalis pedis and posterior tibial. [] Data : 10/24/21 05:08 10/24/21 05:08 Micro: Microbiology 10/23/21 18:05 Blood Culture - Preliminary Blood NEGATIVE TO DATE 10/23/21 18:00 Blood Culture - Preliminary Blood NEGATIVE TO DATE A&P Assessment and plan (1) Chest pain: Status: Acute (2) Atrial fibrillation: Status: Acute (3) CAD (coronary artery disease): Status: Acute (4) Diabetes: Status: Acute (5) HTN (hypertension): Status: Acute (6) Pneumonia: Status: Acute Plan Patient presented with worsening chest pain symptoms. Went into ventricular tachycardia in the ER. Also said that he feels he was shocked twice before arrival to hospital Patient underwent urgent coronary angiogram on day of admission. It showed moderate ostial LAD stenosis that was hazy. iFR was performed that was not ischemic. IVUS was also performed to rule out thrombus formation. Haziness was secondary to calcification. Medical therapy was decided. Chest pain has improved. No troponin elevation no EKG changes. Device was interrogated today that did not show defibrillation. Echocardiogram shows normal LV systolic function. Patient has pneumonia and getting treatment for that now with antibiotics. Improving symptoms Continue Eliquis and plavix Thank you for involving us with care of this patient. Please call with questions. Attestations Medical Necessity Statement*: Care expected to cross 2 midnights. Coding Level of Care Code Acute Prepared Foods Associate for [facility] Fwd Diagnoses Chest pain R07.9 Atrial fibrillation I48.91 CAD (coronary artery disease) I25.10 Diabetes E11.9 HTN (hypertension) I10 Pneumonia J18.9
--- NOTE | 2021-10-25 13:10 | PC.SOCIAL ---
IMM Update pg 2 of IMM updated and reviewed w/ patient. Copy provided and copy placed in chart.
--- NOTE | 2021-10-25 13:32 | PM.PN ---
Subjective Subjective: Doing better today. Less SOB and CP. 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 Due to PNA Status: Acute (3) Tachycardia: resolved Status: Acute (4) Atrial fibrillation: NSR Status: Acute (5) HTN (hypertension): stable Status: Acute (6) CAD (coronary artery disease): Status: Acute (7) Diabetes: Status: Acute (8) Major depressive disorder, recurrent severe without psychotic features: Status: Acute Plan Continue steroid, Abx, bronchodil PT eval/Rx Will start oral steroid from tomorrow Rpt CXR Attestations Medical Necessity Statement*: Has Pneumonia and Chest Pain. Clinically improving but would need continuation of care and hospitalization Time Spent in Patient Care: 40 min Coding Level of Care Code Acute Welfare Project Manager for g Fwd Diagnoses Pneumonia J18.9 Chest pain R07.9 Tachycardia R00.0 Atrial fibrillation I48.91 HTN (hypertension) I10 CAD (coronary artery disease) I25.10 Diabetes E11.9 Major depressive disorder, recurrent severe without psychotic features F33.2
--- NOTE | 2021-10-25 15:33 | PC.NURSE ---
spoke with patients provider about patient reports of pain 8/10 upper back and asking for his pain shot instructions received to hold off on morphine at this time and start patient on hydrocodone 5/325 PO Q4H as needed for Mod pain
[2021-10-25] MEDS: HYDROcodone-acetaminophen 5-325 mg Tablet 1 TAB PO ×2 (15:41→20:15)
--- NOTE | 2021-10-25 16:05 | PC.NURSE ---
noted changes to ECG monitoring Paced rhythm of 120 noted patient reports chest discomfort with radiation and SOB, rhythm lasted approximately 2 min patient remained alert and oriented during event. Provider notified of events no new orders or instructions at this time will continue to monitor
--- NOTE | 2021-10-25 18:14 | PC.NURSE ---
This nurse agrees with all documentation and medication administrations with Ariane Roth Student nurse
[2021-10-25] MEDS: prazosin 1 mg Capsule PO (20:14)
[2021-10-25] MEDS: mirtazapine 15 mg Tablet PO (20:15)
[2021-10-26] VITALS (10 sets, daily range): BP systolic 136–169; BP diastolic 71–99; PULSE 66–85; RESP 16–18; TEMP 36.5–36.8; O2SAT 94–99
[2021-10-26] MEDS: piperacillin-tazobactam 3.375 GM in sodium chloride 0.9% (plus) 50 ML IV ×3 (02:11→17:22)
--- NOTE | 2021-10-26 07:11 | PC.NURSE ---
Shift Note Frequent safety and comfort rounds continue. Orders and/or nursing care completed as indicated. Patient monitored for response to intervention and treatment(s). Education provided includes monitoring urine output. Patient and/or technical account representative verbalized understanding. Will continue to monitor.
--- NOTE | 2021-10-26 08:46 | XRR_ITS ---
PROCEDURE INFORMATION: Exam: XR Chest Exam date and time: 10/26/2021 9:15 AM Age: 61 years old Clinical indication: Dyspnea; Additional info: Physicians orders TECHNIQUE: Imaging protocol: XR of the chest. Views: 1 view. Other technique: Frontal portable upright view of the chest. COMPARISON: 1. CR XR chest 1V [id number] 10/23/2021 2:[address] angio chest PE protcl [id number] 10/23/2021 3:27 PM FINDINGS: Tubes, catheters and devices: EKG leads are present overlying the chest. A dual lead left subclavian permanent AICD pacemaker is present. The right atrial and right ventricular leads appear to be in good position. Lungs: Improved patchy left lung pulmonary infiltrates. The lungs are otherwise clear bilaterally. The pulmonary vasculature is normal. Pleural spaces: No pleural effusion. No pneumothorax. Heart/Mediastinum: The heart is normal in size and contour. Diaphragm: The right hemidiaphragm remains moderately elevated. Bones/joints: Stable. XR/XR chest 1V portable [id number] IMPRESSION: Improved patchy left lung pulmonary infiltrates.
[2021-10-26] MEDS: quetiapine 100 mg Tablet PO (08:47)
[2021-10-26] MEDS: gabapentin 100 mg Capsule PO ×2 (08:47→17:24)
[2021-10-26] MEDS: pantoprazole DR 40 mg Tablet PO ×2 (08:47→17:23)
[2021-10-26] MEDS: tamsulosin 0.4 mg Capsule PO (08:47)
[2021-10-26] MEDS: metoprolol succinate ER (24 HR) 25 mg Tablet PO (08:47)
[2021-10-26] MEDS: clopidogrel 75 mg Tablet PO (08:48)
[2021-10-26] MEDS: atorvastatin 40 mg Tablet 80 MG PO (08:48)
[2021-10-26] MEDS: ranolazine (12HR) 500 mg Tablet PO ×2 (08:48→17:23)
[2021-10-26] MEDS: ARIPiprazole 10 mg Tablet 15 MG PO (08:48)
[2021-10-26] MEDS: ferrous sulfate EC 325 mg Tablet PO ×2 (08:48→17:23)
[2021-10-26] MEDS: HYDROcodone-acetaminophen 5-325 mg Tablet 1 TAB PO ×3 (08:48→21:18)
[2021-10-26] MEDS: amlodipine 5 mg Tablet PO (08:48)
[2021-10-26] MEDS: apixaban 5 mg Tablet PO ×2 (08:49→17:23)
[2021-10-26] MEDS: ropinirole 0.25 mg Tablet PO (08:49)
[2021-10-26] MEDS: amiodarone 200 mg Tablet PO (08:49)
[2021-10-26] MEDS: risperiDONE 2 mg Tablet PO (09:06)
--- NOTE | 2021-10-26 10:34 | P.PN_ITS ---
Subjective Subjective: Patient is doing better. Shortness of breath has improved. has mild chest discomfort. Had episode of VT Vitals/I&O/Wt Last Vital Signs Temp 98.2 F 10/26/21 08:00 Pulse 73 10/26/21 09:25 Resp 16 10/26/21 09:25 BP 148/71 10/26/21 08:00 Pulse Ox 98 10/26/21 09:25 10/25/21 10/26/21 10/26/21 22:59 06:59 14:59 Intake Total 470 / 1310 150 / 1460 325 / 325 Output Total 500 / 1300 250 / 1550 400 / 400 Balance -30 / 10 -100 / -90 -75 / -75 Weight last 48 hrs Weight 179 lb 9 oz Weight 240 lb Physical Exam Narrative: GENERAL: Patient is alert, awake and oriented x3. [] NECK: No jugular vein distension. [] HEENT: No cyanosis. No icterus. No pallor. [] HEART: Regular S1 and S2. No murmur, rub or gallop. [] LUNGS: Clear to auscultate bilaterally. [] ABDOMEN: Soft, nontender and nondistended. Positive bowel sounds. No guarding, rebound or tenderness. [] CENTRAL NERVOUS SYSTEM: Grossly nonfocal. [] EXTREMITIES: Lower extremities with 1+ edema bilaterally. Pulses palpable in the lower extremities, both dorsalis pedis and posterior tibial. [] Data : 10/24/21 05:08 10/24/21 05:08 A&P Assessment and plan (1) Chest pain: Status: Acute (2) Atrial fibrillation: Status: Acute (3) CAD (coronary artery disease): Status: Acute (4) Diabetes: Status: Acute (5) HTN (hypertension): Status: Acute (6) Pneumonia: Status: Acute Plan Patient presented with worsening chest pain symptoms. Went into ventricular tachycardia in the ER. Also said that he feels he was shocked twice before arrival to hospital Patient underwent urgent coronary angiogram on day of admission. It showed moderate ostial LAD stenosis that was hazy. iFR was performed that was not ischemic. IVUS was also performed to rule out thrombus formation. Haziness was secondary to calcification. Medical therapy was decided. Chest pain has improved. No troponin elevation no EKG changes. Device was interrogated that did not show defibrillation. Had another episode of NSVT Echocardiogram shows normal LV systolic function. Patient has pneumonia and getting treatment for that now with antibiotics. Improving overall Continue Eliquis and plavix Thank you for involving us with care of this patient. Please call with questions. Attestations Medical Necessity Statement*: Care expected to cross 2 midnights. Coding Level of Care Code Acute Internal Audit Director for [facility] Fwd Diagnoses Chest pain R07.9 Atrial fibrillation I48.91 CAD (coronary artery disease) I25.10 Diabetes E11.9 HTN (hypertension) I10 Pneumonia J18.9
--- NOTE | 2021-10-26 11:16 | P.PN_ITS ---
Subjective Subjective: Doing little better. Less SOB. Still salvatore chest and upper back pain. Did not receive the Neurontin yesterday. 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 NSR since Status: Acute (4) Atrial fibrillation: NSR Status: Acute (5) HTN (hypertension): Improving Status: Acute (6) CAD (coronary artery disease): Cardiac Cath patent vess Status: Acute (7) Diabetes: stable Status: Acute Plan Decrease Solumedrol 80 mg q12. Change to Prednisone tomorrow Potentially can be d/c home in am Start Neurontin Increase Norvasc 10 mg qd Attestations Medical Necessity Statement*: Has Pneumonia and Chest Pain. Clinically improv ing but would need continuation of care and hospitalization Time Spent in Patient Care: 40 min Coding Level of Care Code Acute Plant Protection Officer for g Fwd Diagnoses Pneumonia J18.9 Chest pain R07.9 Tachycardia R00.0 Atrial fibrillation I48.91 HTN (hypertension) I10 CAD (coronary artery disease) I25.10 Diabetes E11.9
[2021-10-26] MEDS: fluoxetine 10 mg Capsule PO (11:34)
[2021-10-26] MEDS: ondansetron 2 mg/ML SDV 2 mL 4 MG IVP (17:24)
[2021-10-26] MEDS: prazosin 1 mg Capsule PO (21:19)
[2021-10-26] MEDS: mirtazapine 15 mg Tablet PO (21:19)
[2021-10-27] VITALS (11 sets, daily range): BP systolic 155–176; BP diastolic 77–109; PULSE 65–676; RESP 12–20; TEMP 36.3–36.7; O2SAT 93–97
[2021-10-27] MEDS: piperacillin-tazobactam 3.375 GM in sodium chloride 0.9% (plus) 50 ML IV ×2 (03:12→10:03)
[2021-10-27] MEDS: timolol 0.5% Op Soln 5 mL Btl 1 DROP EYE-BOTH (08:08)
[2021-10-27] MEDS: amiodarone 200 mg Tablet PO (08:09)
[2021-10-27] MEDS: clopidogrel 75 mg Tablet PO (08:09)
[2021-10-27] MEDS: metoprolol succinate ER (24 HR) 25 mg Tablet PO (08:09)
[2021-10-27] MEDS: atorvastatin 40 mg Tablet 80 MG PO (08:09)
[2021-10-27] MEDS: tamsulosin 0.4 mg Capsule PO (08:09)
[2021-10-27] MEDS: ARIPiprazole 10 mg Tablet 15 MG PO (08:09)
[2021-10-27] MEDS: ferrous sulfate EC 325 mg Tablet PO ×2 (08:09→17:53)
[2021-10-27] MEDS: ranolazine (12HR) 500 mg Tablet PO ×2 (08:09→19:40)
[2021-10-27] MEDS: HYDROcodone-acetaminophen 5-325 mg Tablet 1 TAB PO ×3 (08:09→19:39)
[2021-10-27] MEDS: ropinirole 0.25 mg Tablet PO (08:10)
[2021-10-27] MEDS: gabapentin 100 mg Capsule PO ×2 (08:10→17:53)
[2021-10-27] MEDS: apixaban 5 mg Tablet PO ×2 (08:10→17:53)
[2021-10-27] MEDS: quetiapine 100 mg Tablet PO (08:10)
[2021-10-27] MEDS: pantoprazole DR 40 mg Tablet PO ×2 (08:10→17:53)
[2021-10-27] MEDS: risperiDONE 2 mg Tablet PO (08:10)
[2021-10-27] MEDS: fluoxetine 10 mg Capsule PO (08:10)
[2021-10-27] MEDS: amlodipine 5 mg Tablet PO (08:10)
--- NOTE | 2021-10-27 08:47 | PC.SOCIAL ---
IMM Update Pg. 2 of IMM updated and reviewed with patient, who verbalized understanding. Copy provided.
--- NOTE | 2021-10-27 09:44 | P.PN_ITS ---
Subjective Subjective: Has pleuritic chest pain. Vitals/I&O/Wt Last Vital Signs Temp 97.5 F L 10/27/21 07:14 Pulse 77 10/27/21 09:03 Resp 16 10/27/21 09:03 BP 176/109 10/27/21 07:14 Pulse Ox 97 10/27/21 09:03 10/26/21 10/27/21 10/27/21 22:59 06:59 14:59 Intake Total 770 / 1765 150 / 1915 290 / 290 Output Total 875 / 1275 400 / 1675 400 / 400 Balance -105 / 490 -250 / 240 -110 / -110 Weight last 48 hrs Weight 150 lb 14.4 oz Weight 179 lb 9 oz Physical Exam Narrative: GENERAL: Patient is alert, awake and oriented x3. [] NECK: No jugular vein distension. [] HEENT: No cyanosis. No icterus. No pallor. [] HEART: Regular S1 and S2. No murmur, rub or gallop. [] LUNGS: Clear to auscultate bilaterally. [] ABDOMEN: Soft, nontender and nondistended. Positive bowel sounds. No guarding, rebound or tenderness. [] CENTRAL NERVOUS SYSTEM: Grossly nonfocal. [] EXTREMITIES: Lower extremities with 1+ edema bilaterally. Pulses palpable in the lower extremities, both dorsalis pedis and posterior tibial. [] Data : 10/24/21 05:08 10/24/21 05:08 A&P Assessment and plan (1) Chest pain: Status: Acute (2) Atrial fibrillation: Status: Acute (3) CAD (coronary artery disease): Status: Acute (4) Diabetes: Status: Acute (5) HTN (hypertension): Status: Acute (6) Pneumonia: Status: Acute Plan Patient presented with worsening chest pain symptoms. Went into ventricular tachycardia in the ER. Also said that he feels he was shocked twice before arrival to hospital Patient underwent urgent coronary angiogram on day of admission. It showed moderate ostial LAD stenosis that was hazy. iFR was performed that was not ischemic. IVUS was also performed to rule out thrombus formation. Haziness was secondary to calcification. Medical therapy was decided. Chest pain has improved. No troponin elevation no EKG changes. Device was interrogated that did not show defibrillation. Had another episode of NSVT in the hospital. Chest pain has improved but has pleuritic pain secondary to pneumonia Echocardiogram shows normal LV systolic function. Patient has pneumonia and getting treatment for that now with antibiotics. Improving overall Continue Eliquis and plavix Thank you for involving us with care of this patient. Please call with questions. Attestations Medical Necessity Statement*: Care expected to cross 2 midnights. Coding Level of Care Code Acute Conciliation Court Judge for [facility] Fwd Diagnoses Chest pain R07.9 Atrial fibrillation I48.91 CAD (coronary artery disease) I25.10 Diabetes E11.9 HTN (hypertension) I10 Pneumonia J18.9
--- NOTE | 2021-10-27 10:02 | PC.NURSE ---
Performed a bed change at approximately 0845
--- NOTE | 2021-10-27 11:30 | PC.NURSE ---
Patient reports to nurse that left side of body feels like it is going numb. Stroke scale was completed and physician was notified.
--- NOTE | 2021-10-27 12:19 | P.PN_ITS ---
Subjective Subjective: non Reproducible pleuritic left-sided chest pain Patient had 2 incidents when he was not able to go to the bathroom, he lost control and had a bowel movement in the room We will do CT scan of lumbar spine, complaining of back pain Vitals/I&O/Wt Last Vital Signs Temp 97.6 F 10/27/21 11:51 Pulse 66 10/27/21 11:51 Resp 14 10/27/21 11:51 BP 164/89 10/27/21 11:51 Pulse Ox 93 10/27/21 11:51 10/26/21 10/27/21 10/27/21 22:59 06:59 14:59 Intake Total 770 / 1765 150 / 1915 290 / 290 Output Total 875 / 1275 400 / 1675 575 / 575 Balance -105 / 490 -250 / 240 -285 / -285 Weight last 48 hrs Weight 68.447 kg Weight 81.448 kg Physical Exam Narrative: Patient was sitting at the bedside Saturating well on room air Pleuritic chest pain Left-sided pleurisy Obese Nonfocal neuro exam Mild edema of legs Abdomen distended, visceral obesity Saturating well on room air No active wheezing no crackles Mild rhonchi at the base of the lungs Data : 10/24/21 05:08 10/24/21 05:08 A&P Assessment and plan (1) Back pain: Status: Acute (2) Atrial fibrillation: Status: Acute (3) Chest pain: Status: Acute (4) Pneumonia: Status: Acute (5) Diabetes: Status: Acute Plan Community-acquired pneumonia Patient has been complaining of pleuritic chest pain Appreciate cardiology recommendations Echo reviewed He has pleuritic left-sided pain secondary to community-acquired pneumonia Continue p.o. antibiotics Afebrile On room air Will obtain lumbar CT scan to rule out spinal cord compression, he had 2 incidents of rectal incontinence He lives with his at home He is full code Cardiac diet Eliquis will cover for DVT A. fib without RVR BPH: Tamsulosin Attestations Medical Necessity Statement*: Continue medical management Time Spent in Patient Care: 20min Coding Level of Care Code Acute Transport Operations Inspector for [facility] Fwd Diagnoses Back pain M54.9 Atrial fibrillation I48.91 Chest pain R07.9 Pneumonia J18.9 Diabetes E11.9
--- NOTE | 2021-10-27 12:27 | CT_ITS ---
WS: [id number] CT LUMBAR SPINE TECHNIQUE: Noncontrast CT of the lumbar spine with coronal and sagittal reformatted images. CLINICAL INFORMATION: back pain, rectal incontinence COMPARISON: None. DLP: 2938.[address] scans at [facility] use at least one of these dose optimization techniques: automated e xposure control; mA and/or kV adjustment per patient size (includes targeted exams where dose is matc hed to clinical indication); or iterative reconstruction. FINDINGS: Mild lumbar curve convex RIGHT. Mild chronic appearing compression deformity at T12 with endplate Jose D morl's node. This is unchanged in appearance since July 03, 2021. No acute appearing compression fractures. No high-grade central canal stenosis. Postoperative changes laminectomy defects with dorso lateral bony fusion the lower thoracic and upper lumbar spine. Chronic Laminectomy defects L4-L5. Yumiko dence of prior hardware removal in the lower thoracic and upper lumbar spine. L1-L2: Tiny LEFT pericentral protrusion. Mild central canal stenosis. Mild LEFT foraminal narrowing. RIGHT foramen is patent. Moderate facet arthropathy ligamentum flavum hypertrophy. L2-L3: Mild annular bulging. Spinal canal and foramen are patent. Moderate facet arthropathy with lig amentum flavum flavum hypertrophy. L3-L4: Mild annular bulging. Moderate facet arthropathy. Spinal canal and foramen are patent. Ligamen zoë flavum hypertrophy. L4-L5: Mild annular bulging with slight effacement of ventral thecal sac. Mild bilateral foraminal na rrowing RIGHT greater than LEFT. Moderate facet arthropathy with ligamentum flavum flavum hypertrophy . L5-S1: Tiny central disc protrusion. Spinal canal is patent. Foramen are patent. Advanced facet arthr opathy. Postoperative changes at the GE junction. Adrenal glands are normal. CT/CT lumbar spine wo con* [id number] IMPRESSION: 1. Postoperative changes laminectomy defects with dorsolateral bony fusion the lower thoracic and upper lumbar spine. Chronic Laminectomy defects L4-L5. 2. No acute compression fractures. 3. No high-grade central canal stenosis. 4. Tiny LEFT pericentral protrusion L1-L2 with mild central canal stenosis and narrowing of the LEFT subarticular recess. Mild LEFT foraminal narrowing. 5. Mild bilateral L4-L5 foraminal narrowing.
--- NOTE | 2021-10-27 15:29 | CTR_ITS ---
PROCEDURE INFORMATION: Exam: CT Angiography Head With Contrast, Arteriography Exam date and time: 10/27/2021 6:23 PM Age: 61 years old Clinical indication: Patient HX: Weakness in left upper extremity; Additional info: TIA TECHNIQUE: Imaging protocol: Computed tomography angiography of the head with contrast. Exam focused on the arteries. 3D rendering (Not supervised by radiologist): MIP and/or 3D reconstructed images were created by the technologist. Radiation optimization: All CT scans at this facility use at least one of these dose optimization techniques: automated exposure control; mA and/or kV adjustment per patient size (includes targeted exams where dose is matched to clinical indication); or iterative reconstruction. Contrast material: OMNI 350; Contrast volume: 95 ml; Contrast route: INTRAVENOUS (IV); COMPARISON: CT head wo con* [id number] 10/27/2021 4:10 PM RADIATION DOSE METRICS: Total DLP (mGy-cm): 2843.1 FINDINGS: ANTERIOR CIRCULATION: Right internal carotid artery: Unremarkable. Intracranial segment is patent with no significant stenosis. No aneurysm. Right middle cerebral artery: Unremarkable. No occlusion or significant stenosis. No aneurysm. Right anterior cerebral artery: Unremarkable. No occlusion or significant stenosis. No aneurysm. Left internal carotid artery: Unremarkable. Intracranial segment is patent with no significant stenosis. No aneurysm. Left middle cerebral artery: Unremarkable. No occlusion or significant stenosis. No aneurysm. Left anterior cerebral artery: Unremarkable. No occlusion or significant stenosis. No aneurysm. POSTERIOR CIRCULATION: Right vertebral artery: Congenitally small right vertebral artery. No stenosis. Left vertebral artery: Mild calcification without stenosis in the left vertebral artery. Basilar artery: Unremarkable. No occlusion or significant stenosis. No aneurysm. Right posterior cerebral artery: Unremarkable. No occlusion or significant stenosis. No aneurysm. Left posterior cerebral artery: Unremarkable. No occlusion or significant stenosis. No aneurysm. Brain: No definite mass, mass effect, or midline shift. Cerebral ventricles: No ventriculomegaly. Bones/joints: Unremarkable. No acute fracture. Soft tissues: Unremarkable. PROCEDURE INFORMATION: Exam: CT Angiography Neck With Contrast Exam date and time: 10/27/2021 6:23 PM Age: 61 years old Clinical indication: Patient HX: Weakness in left upper extremity; Additional info: TIA TECHNIQUE: Imaging protocol: Computed tomography angiography of the neck with contrast. 3D rendering (Not supervised by radiologist): MIP and/or 3D reconstructed images were created by the technologist. Radiation optimization: All CT scans at this facility use at least one of these dose optimization techniques: automated exposure control; mA and/or kV adjustment per patient size (includes targeted exams where dose is matched to clinical indication); or iterative reconstruction. Contrast material: OMNI 350; Contrast volume: 95 ml; Contrast route: INTRAVENOUS (IV); COMPARISON: CT head wo con* [id number] 10/27/2021 4:10 PM RADIATION DOSE METRICS: Total DLP (mGy-cm): 2843.1 FINDINGS: Tubes, catheters and devices: Left-sided pacemaker. Right common carotid artery: No stenosis. No dissection or occlusion. Right internal carotid artery: No stenosis of the extracranial segment. No dissection or occlusion. Right external carotid artery: No occlusion or stenosis of the origin. Left common carotid artery: No stenosis. No dissection or occlusion. Left internal carotid artery: No stenosis of the extracranial segment. No dissection or occlusion. Left external carotid artery: No occlusion or stenosis of the origin. Right vertebral artery: No stenosis. No dissection or occlusion. Left vertebral artery: Mild calcification in the proximal left vertebral artery. There is tortuosity and kinking with mild stenosis in the proximal artery. Right subclavian artery: Aberrant right subclavian artery. No stenosis. Lymph nodes: Calcified right hilar lymph nodes. Soft tissues: Normal. No significant soft tissue swelling. Bones/joints: No acute fracture. CT/CT angio headneck* [id number] IMPRESSION: 1. No large artery occlusion or stenosis. IMPRESSION: 1. No carotid artery plaque or stenosis. 2. Kinking with mild stenosis in the proximal left vertebral artery. REFERENCES: NASCET CRITERIA. The degree of internal carotid artery stenosis is based on NASCET criteria. Normal is no stenosis. Mild is less than 50% stenosis. Moderate is 50-69% stenosis. Severe is 70% to 99% stenosis. Total occlusion is no detectable patent lumen.
--- NOTE | 2021-10-27 15:30 | CTR_ITS ---
PROCEDURE INFORMATION: Exam: CT Head Without Contrast Exam date and time: 10/27/2021 4:10 PM Age: 61 years old Clinical indication: Weakness, extremity; Patient HX: L sided extremity weakness; Additional info: TIA TECHNIQUE: Imaging protocol: Computed tomography of the head without contrast. Radiation optimization: All CT scans at this facility use at least one of these dose optimization techniques: automated exposure control; mA and/or kV adjustment per patient size (includes targeted exams where dose is matched to clinical indication); or iterative reconstruction. COMPARISON: No relevant prior studies available. RADIATION DOSE METRICS: Total DLP (mGy-cm): 964.69 FINDINGS: Brain: No hemorrhage. No edema. Mild diffuse cerebral atrophy. No significant white matter disease. No mass effect. Cerebral ventricles: No ventriculomegaly. Paranasal sinuses: Mild mucosal thickening of the left maxillary sinus. The rest of the paranasal sinuses are well pneumatized. Mastoid air cells: Visualized mastoid air cells are well aerated. Bones/joints: Unremarkable. No acute fracture. Soft tissues: Unremarkable. CT/CT head wo con* [id number] IMPRESSION: No acute intracranial abnormality.
--- NOTE | 2021-10-27 15:34 | PC.NURSE ---
Patient reports to nurse that left sided numbness is worsening. Sensation is decreased on left upper and lower extremeties, and patient states there is some numbness on the left side of his face now as well. Patient is unable to hold left lower extremity up for the full 5 second duration.Left upper extremity now drifts downward as well. Jewelry Sales are equal bilaterally however. Face appears to be symmetrical. Patient is able to read sentences and recognize pictures as well. Physician notified.
--- NOTE | 2021-10-27 17:30 | PC.NURSE ---
Report called to [facility]. Nurse will give 1800 meds and then transport patient to ct and then med surg.
[2021-10-27] MEDS: iohexol 350 mg/mL 100 mL Btl IV (18:32)
[2021-10-27] MEDS: levoFLOXacin 750 mg Tablet PO (19:39)
[2021-10-27] MEDS: mirtazapine 15 mg Tablet PO (20:42)
[2021-10-27] MEDS: prazosin 1 mg Capsule PO (20:42)
[2021-10-28] VITALS (10 sets, daily range): BP systolic 127–160; BP diastolic 73–90; PULSE 67–90; RESP 16–27; TEMP 36.4–36.8; O2SAT 89–96
[2021-10-28] MEDS: levoFLOXacin 750 mg Tablet PO (06:05)
--- NOTE | 2021-10-28 06:42 | P.PN_ITS ---
Subjective Subjective: Patient doing better. No chest pain Vitals/I&O/Wt Last Vital Signs Temp 97.5 F L 10/28/21 00:00 Pulse 70 10/28/21 05:15 Resp 18 10/28/21 03:46 BP 160/81 10/28/21 03:46 Pulse Ox 89 L 10/28/21 03:46 10/27/21 10/27/21 10/28/21 14:59 22:59 06:59 Intake Total 323.75 / 323.75 320 / 643.75 270 / 913.75 Output Total 575 / 575 600 / 1175 2200 / 3375 Balance -251.25 / -251.25 -280 / -531.25 -1930 / -2461.25 Weight last 48 hrs Weight 246 lb Weight 150 lb 14.4 oz Physical Exam Narrative: GENERAL: Patient is alert, awake and oriented x3. [] NECK: No jugular vein distension. [] HEENT: No cyanosis. No icterus. No pallor. [] HEART: Regular S1 and S2. No murmur, rub or gallop. [] LUNGS: Clear to auscultate bilaterally. [] ABDOMEN: Soft, nontender and nondistended. Positive bowel sounds. No guarding, rebound or tenderness. [] CENTRAL NERVOUS SYSTEM: Grossly nonfocal. [] EXTREMITIES: Lower extremities with 1+ edema bilaterally. Pulses palpable in the lower extremities, both dorsalis pedis and posterior tibial. [] Data : 10/24/21 05:08 10/24/21 05:08 A&P Assessment and plan (1) Chest pain: (2) Atrial fibrillation: (3) CAD (coronary artery disease): (4) Diabetes: (5) HTN (hypertension): (6) Pneumonia: Plan Patient presented with worsening chest pain symptoms. Went into ventricular tachycardia in the ER. Also said that he feels he was shocked twice before arrival to hospital Patient underwent urgent coronary angiogram on day of admission. It showed moderate ostial LAD stenosis that was hazy. iFR was performed that was not ischemic. IVUS was also performed to rule out thrombus formation. Haziness was secondary to calcification. Medical therapy was decided. Chest pain has improved. No troponin elevation no EKG changes. Device was interrogated that did not show defibrillation. Had another episode of NSVT in the hospital. Chest pain has improved but has pleuritic pain secondary to pneumonia Echocardiogram shows normal LV systolic function. Patient has pneumonia and getting treatment for that now with antibiotics. Improving overall Continue Eliqujaydon and plavix Thank you for involving us with care of this patient. We will sign off. Please call with questions. Attestations Medical Necessity Statement*: Care expected to cross 2 midnights. 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
[2021-10-28] MEDS: amlodipine 5 mg Tablet PO (08:06)
[2021-10-28] MEDS: fluoxetine 10 mg Capsule PO (08:06)
[2021-10-28] MEDS: ferrous sulfate EC 325 mg Tablet PO ×2 (08:06→17:35)
[2021-10-28] MEDS: apixaban 5 mg Tablet PO ×2 (08:06→17:35)
[2021-10-28] MEDS: gabapentin 100 mg Capsule PO ×2 (08:06→17:35)
[2021-10-28] MEDS: ARIPiprazole 10 mg Tablet 15 MG PO (08:07)
[2021-10-28] MEDS: amiodarone 200 mg Tablet PO (08:07)
[2021-10-28] MEDS: quetiapine 100 mg Tablet PO (08:07)
[2021-10-28] MEDS: atorvastatin 40 mg Tablet 80 MG PO (08:07)
[2021-10-28] MEDS: clopidogrel 75 mg Tablet PO (08:07)
[2021-10-28] MEDS: ropinirole 0.25 mg Tablet PO (08:07)
[2021-10-28] MEDS: pantoprazole DR 40 mg Tablet PO ×2 (08:07→17:35)
[2021-10-28] MEDS: ranolazine (12HR) 500 mg Tablet PO ×2 (08:07→17:35)
[2021-10-28] MEDS: tamsulosin 0.4 mg Capsule PO (08:07)
[2021-10-28] MEDS: metoprolol succinate ER (24 HR) 25 mg Tablet PO (08:07)
[2021-10-28] MEDS: timolol 0.5% Op Soln 5 mL Btl 1 DROP EYE-BOTH (08:15)
[2021-10-28] MEDS: HYDROcodone-acetaminophen 5-325 mg Tablet 1 TAB PO ×2 (08:15→17:38)
--- NOTE | 2021-10-28 09:25 | PM.PN ---
Subjective Subjective: Patient stating that he still feeling this morning patient is stating that he still will him weak on left side however he is able to stretch his left hand up to 10 seconds, I did not appreciate any weakness, his neuro exam is nonfocal Stroke work-up was negative yesterday Still complaining of chest pain which is pleuritic in nature Vitals/I&O/Wt Last Vital Signs Temp 97.6 F 10/28/21 07:08 Pulse 69 10/28/21 09:10 Resp 16 10/28/21 09:10 BP 152/90 10/28/21 07:08 Pulse Ox 96 10/28/21 09:10 10/27/21 10/28/21 10/28/21 22:59 06:59 14:59 Intake Total 320 / 643.75 270 / 913.75 340 / 340 Output Total 600 / 1175 2200 / 3375 Balance -280 / -531.25 -1930 / -2461.25 340 / 340 Weight last 48 hrs Weight 111.584 kg Weight 68.447 kg Physical Exam Narrative: Patient was eating breakfast nonfocal neuro exam Complaining of pleuritic chest pain on left side Distended abdomen with obesity No facial droop noted Nonpitting edema of legs Pleasant and cooperative Abdomen is soft, visceral obesity Saturating well on room air Data : 10/24/21 05:08 10/24/21 05:08 A&P Assessment and plan (1) Back pain: Status: Acute (2) Pneumonia: Status: Acute (3) Chest pain: Status: Acute (4) Atrial fibrillation: Status: Acute (5) HTN (hypertension): Status: Acute (6) Diabetes: Status: Acute (7) Generalized weakness: Status: Acute Plan Generalized weakness Stroke work-up negative NIH 0 Requested PT evaluation today Most likely patient will need home health services Back pain related to chronic osteoarthritis no signs of cauda equina or spinal cord compression Chest pain is pleuritic, pleurisy secondary to left-sided pneumonia Patient is doing well on room air Diabetes related weakness? After PT evaluation can be discharged home tomorrow Patient is full code Consistent carb diet with sliding scale Attestations Medical Necessity Statement*: Discharge tomorrow Time Spent in Patient Care: 20mins Coding Level of Care Code Acute Hygiene Assistant for Anabela Clark Diagnoses Back pain M54.9 Pneumonia J18.9 Chest pain R07.9 Atrial fibrillation I48.91 HTN (hypertension) I10 Diabetes E11.9 Generalized weakness R53.1
[2021-10-28] MEDS: risperiDONE 1 mg Tablet 2 MG PO (10:11)
[2021-10-28 11:34] LABS: Estmated Average Glucose 114; Hemoglobin A1C 5.6 % (4.0-6.0)
--- NOTE | 2021-10-28 20:38 | PC.NURSE ---
PATIENT REFUSING TO WEAR DIRECTOR MONEY AT THIS TIME. PATIENT EDUCATED ON IMPORTANCE OF DIRECTOR MONEY. PATIENT VERBALIZED UNDERSTANDING AND STILL REFUSING TO WEAR. PATIENT STATING HE IS TIRED OF CARING IT WHEN HE WALKS AROUND.
[2021-10-28] MEDS: mirtazapine 15 mg Tablet PO (21:01)
[2021-10-28] MEDS: prazosin 1 mg Capsule PO (21:01)
[2021-10-29] VITALS: BP 150/76; PULSE 64; RESP 17; TEMP 36.6; O2SAT 93
[2021-10-29 04:00] VITALS: BP 114/71; PULSE 61; RESP 16; TEMP 36.4; O2SAT 95
[2021-10-29] MEDS: levoFLOXacin 750 mg Tablet PO (05:33)
--- NOTE | 2021-10-29 07:00 | P.DS_ITS ---
Discharge Providers Date of Admission: 10/22/21 16:38 Date of Discharge: October 29, 2021 Attending Provider at Admission: Irene Mohr MD Attending Provider at Discharge: Woody Inman MD Primary Care Provider: Livia Ridley MD Diagnoses at Discharge Discharge Diagnosis (1) Back pain: Status: Acute (2) Pneumonia: Status: Acute (3) Chest pain: Status: Acute (4) Atrial fibrillation: Status: Acute (5) HTN (hypertension): Status: Acute (6) Diabetes: Status: Acute (7) Generalized weakness: Status: Acute Reason for Visit Reason for Visit: Chest pain, dizzy Hospital Course Hospital Course This is admitting note by Dr. Mohr/mulu provider 61 yo WM w/ h/o HYN, CAD, DM, At Fib, SSS s/p PCM came to the ED c/o CP, SOB for 3 days. His CP has been gradually getting worse becoming moderately severe this morning. Has associated SOB and VALENCIA especially today. The CP is non radiating and not related to activity or food.? Denies f/c. Cough is mild and non productive. In the ED he had a 45 sec run of Vtach. Cardilogy was consulted and pt was taken to the pathology laboratory aide for coronary angioogram. He will be admitted to the ICU after his procedure for further management of his Chest Pain Hospital course urgent cath performed when he was having chest pain with 45 seconds run of V. tach. Ostial LAD had moderate stenosis with some haziness, haziness was secondary to calcification IFR was nonischemic. His left-sided chest discomfort was pleuritic in nature, secondary to community-acquired pneumonia. Patient was showing intermittent numbness of left arm. Stroke work-up unremarkable. Hemoglobin A1c 5.6. He was not participating very well with physical therapy however on 10/29 he was able to get up to go to the bathroom independently. He remained hemodynamically stable. No recurrence of V. tach noted. Potassium 4.5. Vitamin B12 351, lumbar spine was obtained because he had 2 episodes of loose stool at the bedside and back pain. Lumbar spine did not show any signs of cauda equina or cord compression patient stated that he just could not make it to the bathroom on time and lost control, he denied rectal incontinence. I do believe patient is suffering from polypharmacy, I have tried to reduce some of his antidepressant and antipsychotics. Added meclizine and antibiotic at the time of discharge. QTc 343 on EKG 10/21 Patient does take amiodarone, metoprolol succinate at home which I have resumed at the time of discharge. Physical Exam Narrative: Patient was eating breakfast ?nonfocal neuro exam Complaining of pleuritic chest pain on left side Distended abdomen with obesity No facial droop noted Nonpitting edema of legs Pleasant and cooperative Abdomen is soft, visceral obesity Saturating well on room air Discharge Data Studies Completed and Pending Completed Studies During Hospitalization Category Date Time Status CT angio head neck [CT angio headneck* [id number]] Cat Scan 10/27/21 15:[address] head wo con* [id number] Stat Cat Scan 10/27/21 15:[address] lumbar spine wo con* [id number] Routine Cat Scan 10/27/21 12:27 Completed CTA PE [CT angio chest PE protcl [id number]] Routine Cat Scan 10/23/21 14:00 Completed XR chest 1V [id number] Urgent Exams 10/23/21 02:38 Completed XR chest 1V portable [id number] Routine Exams 10/26/21 08:46 Completed XR chest 1V portable [id number] Stat Exams 10/21/21 11:42 Completed CV. echo wo/w contrast [id number] Routine Ultrasound 10/22/21 07:15 Completed Pending at discharge Category Date Time Status RADIATION ENGINEER request for service Routine Exams 10/21/21 15:40 Taken B12 [Vitamin B12] Routine Lab 10/29/21 06:53 Ordered CDIFF [Clostridioides Difficile PCR] Routine Lab 10/27/21 12:27 Uncollected Radiology Impressions Chest CTA 10/23/21 14:00 IMPRESSION: 1. Interval appearance of mild left upper lobe pneumonia with [id number] left lower lobe pneumonia. 2. Severe calcified coronary artery disease. 3. No pulmonary embolus or aortic dissection. Chest X-Ray 10/26/21 08:46 IMPRESSION: Improved patchy left lung pulmonary infiltrates. Lumbar Spine CT 10/27/21 12:27 IMPRESSION: 1. Postoperative changes laminectomy defects with dorsolateral bony fusion the lower thoracic and upper lumbar spine. Chronic Laminectomy defects L4-L5. 2. No acute compression fractures. 3. No high-grade central canal stenosis. 4. Tiny LEFT pericentral protrusion L1-L2 with mild central canal stenosis and narrowing of the LEFT subarticular recess. Mild LEFT foraminal narrowing. 5. Mild bilateral L4-L5 foraminal narrowing. Head/Neck CTA 10/27/21 15:29 IMPRESSION: 1. No large artery occlusion or stenosis. IMPRESSION: 1. No carotid artery plaque or stenosis. 2. Kinking with mild stenosis in the proximal left vertebral artery. REFERENCES: NASCET CRITERIA. The degree of internal carotid artery stenosis is based on NASCET criteria. Normal is no stenosis. Mild is less than 50% stenosis. Moderate is 50-69% stenosis. Severe is 70% to 99% stenosis. Total occlusion is no detectable patent lumen. Head CT 10/27/21 15:30 IMPRESSION: No acute intracranial abnormality. Laboratory Results WBC 6.3 10^3/uL (4.0-10.0) 10/24/21 05:08 RBC 3.44 10^6/uL (4.1-5.3) L 10/24/21 05:08 Hgb 11.1 g/dL (11.7-16.6) L 10/24/21 05:08 Hct 34.9 % (42.0-52.0) L 10/24/21 05:08 MCV 101.5 fl (80-94) H 10/24/21 05:08 MCH 32.3 pg (28.0-34.0) 10/24/21 05:08 MCHC 31.8 g/dL (30.0-36.0) 10/24/21 05:08 RDW 14.5 % (12.1-15.1) 10/24/21 05:08 Plt Count 174 10^3/cmm (130-400) 10/24/21 05:08 MPV 11.1 fL (7.4-10.4) H 10/24/21 05:08 Neut % (Auto) 70.3 % 10/24/21 05:08 Lymph % (Auto) 18.8 % 10/24/21 05:08 [place] % (Auto) 7.9 % 10/24/21 05:08 Eos % (Auto) 2.4 % 10/24/21 05:08 Baso % (Auto) 0.3 % 10/24/21 05:08 Neut # (Auto) 4.45 10^3/uL (1.8-7.7) 10/24/21 05:08 Lymph # (Auto) 1.2 10^3/uL (0.8-4.8) 10/24/21 05:08 [place] # (Auto) 0.5 10^3/uL (0.2-0.9) 10/24/21 05:08 Eos # (Auto) 0.2 10^3/uL (0.0-0.8) 10/24/21 05:08 Baso # (Auto) 0.0 10^3/uL (0.0-0.1) 10/24/21 05:08 Nucleated RBC % (auto) 0 % 10/24/21 05:08 Nucleated RBCs # 0.0 /100WBC 10/24/21 05:08 D-Dimer 0.41 ug/mIFEU (0-0.59) 10/21/21 11:55 Sodium 138 mmol/L (136-145) 10/24/21 05:08 Potassium 4.5 mmol/L (3.5-5.1) 10/24/21 05:08 Chloride 104 mmol/L (98-107) 10/24/21 05:08 Carbon Dioxide 27 mmol/L (22-29) 10/24/21 05:08 Anion Gap 11.5 (5-19) 10/24/21 05:08 BUN 13 mg/dL (8-23) 10/24/21 05:08 Creatinine 0.9 mg/dL (0.7-1.2) 10/24/21 05:08 GFR Calculation 86.1 mL/min (90-130) L 10/24/21 05:08 Glucose 101 mg/dL (65-115) 10/24/21 05:08 Estimat Average Glucose 114 10/28/21 10:39 Hemoglobin A1c 5.6 % (4.0-6.0) 10/28/21 10:39 Calculated Osmolality 286 mOsm/kg (285-295) 10/24/21 05:08 Calcium 8.7 mg/dL (8.5-10.5) 10/24/21 05:08 Total Bilirubin 0.3 mg/dL (0.15-1.2) 10/24/21 05:08 AST 22 U/L (0-40) 10/24/21 05:08 ALT 53 U/L (0-41) H 10/24/21 05:08 Alkaline Phosphatase 116 IU/L (40-130) 10/24/21 05:08 Troponin T Baseline 16 ng/L (0-15) H 10/21/21 11:55 Troponin T 120 Minute 14.95 ng/L (0-15) 10/21/21 13:51 Delta Troponin T -1.05 ABS# (0-10) L 10/21/21 13:51 Troponin T Hi Sens 6Hr 12.93 ng/L (0-15) 10/21/21 18:13 Troponin T Hi Sens 6Hr Delta -3.07 ng/L (0-12) L 10/21/21 18:13 Total Protein 5.6 g/dL (6.6-8.7) L 10/24/21 05:08 Albumin 2.7 g/dL (3.5-5.2) L 10/24/21 05:08 Globulin 2.9 g/dL (1.3-4.6) 10/24/21 05:08 Nasal Influ A H1 2009 PCR Not detected (NOT DETECT) 10/21/21 12:15 Coronavirus 229E (PCR) Not detected (NOT DETECT) 10/21/21 12:15 Human Metapneumovir PCR Not detected (NOT DETECT) 10/21/21 14:15 Influenza A (H1) PCR Not detected (NOT DETECT) 10/21/21 12:15 Influenza A (H3) PCR Not detected (NOT DETECT) 10/21/21 12:15 Influenza Type A (PCR) Not detected (NOT DETECT) 10/21/21 12:15 Influenza Type B (PCR) Not detected (NOT DETECT) 10/21/21 12:15 Entero/Rhino (PCR) Detected (NOT DETECT) A 10/21/21 14:15 SARS-CoV-2 (PCR) Not detected (NOT DETECT) 10/21/21 12:15 Vitals Last Vital Signs Temp 97.6 F 10/29/21 04:00 Pulse 61 10/29/21 04:00 Resp 16 10/29/21 04:00 BP 114/71 10/29/21 04:00 Pulse Ox 95 10/29/21 04:00 Discharge Plan Discharge Patient Disposition: Home Condition: Stable Prescriptions: New meclizine 25 mg Tablet 25 mg PO TID Qty: 30 0RF levofloxacin 750 mg Tablet 750 mg PO DAILY@0600 Qty: 10 0RF Continued cyproheptadine 4 mg Tablet 4 mg PO BEDTIME 0RF tamsulosin 0.4 mg Capsule 0.4 mg PO DAILY 0RF ferrous sulfate 325 mg (65 mg iron) Tablet 325 mg PO BID 0RF ranolazine 500 mg Tablet Extended Release 12 Hr 500 mg PO BID 0RF Eliquis 5 mg Tablet 5 mg PO BID 0RF clopidogrel [Plavix] 75 mg Tablet 75 mg PO DAILY 0RF rosuvastatin [Crestor] 20 mg Tablet 20 mg PO DAILY 0RF metformin 500 mg tablet 500 mg PO DAILY 0RF venlafaxine 75 mg capsule,extended release 24hr 75 mg PO DAILY 0RF amiodarone 200 mg tablet 200 mg PO DAILY 0RF venlafaxine 150 mg capsule,extended release 24hr 150 mg PO DAILY 0RF amlodipine 5 mg tablet 5 mg PO DAILY 0RF quetiapine 100 mg tablet 100 mg PO DAILY 0RF risperidone 2 mg tablet 2 mg PO DAILY 0RF ropinirole 0.25 mg tablet 0.25 mg PO DAILY 0RF Nitrostat 0.4 mg Tablet, Sublingual 0.4 mg SUBLINGUAL Q5M PRN (Reason: Chest Pain) 0RF Rx Instructions: do not exceed 3 doses per episode clobetasol 0.05 % ointment 1 applic TOPICAL DAILY 0RF timolol maleate 0.5 % drops 1 drp ophthalmic (eye) DAILY 0RF prazosin 2 mg capsule 1 mg PO BEDTIME 0RF hydroxyzine pamoate 25 mg capsule 25 mg PO BID 0RF verxsucyouvy-kcegsksc-vjcebk Tablet 1 tab PO DAILY 0RF aripiprazole 15 mg tablet 15 mg PO DAILY 0RF B12 5,000-100 mcg Lozenge 1 fito SUBLINGUAL DAILY 0RF Fish Oil 60-90-500 mg Capsule 1 cap PO DAILY 0RF lisinopril 10 mg tablet 20 mg PO DAILY 0RF Changed metoprolol succinate 25 mg tablet extended release 24 hr 12.5 mg PO DAILY Qty: 0 0RF Discontinued desvenlafaxine succinate 50 mg Tablet Extended Release 24 Hr 50 mg PO DAILY 0RF fluoxetine 10 mg capsule 10 mg PO DAILY 0RF mirtazapine 15 mg tablet 15 mg PO BEDTIME 0RF testosterone cypionate 200 mg/mL oil 200 mg SUBCUT Q14D 0RF potassium gluconate 595 mg (99 mg) Tablet 595 mg PO DAILY 0RF Discharge Orders: Discharge Order (Routine); Ordered 10/29/21 Ordered By: Woody Inman Referrals: Livia Ridley MD [Primary Care Provider] - 11/18/21 10:00 am ([phone] for APPOINTMENT) Discharge Diet: Cardiac Discharge Activity: As per PT/OT instructions Patient Instructions: Meclizine (By mouth), Levofloxacin (By mouth), Chest Pain (GEN), Chest Pain Stoplight, Opioid Safety, Pneumonia Stoplight, Pneumonia - Viral Discharge Attestations Time Spent in Discharge Care*: less than 30 min Status at Discharge: Cognitive status at discharge: cognitively intact , Behavioral status at discharge: cooperative , Quality Metrics Clinical Quality Measures [ No reported AMI, CVA or VTE this stay] Coding Level of Care Code Acute Chg FW DC note Diagnoses Back pain M54.9 Pneumonia J18.9 Chest pain R07.9 Atrial fibrillation I48.91 HTN (hypertension) I10 Diabetes E11.9 Generalized weakness R53.1
[2021-10-29 07:42] VITALS: BP 150/86; PULSE 80; RESP 18; O2SAT 97
[2021-10-29 07:50] VITALS: PULSE 76; RESP 16; O2SAT 94
[2021-10-29 07:59] LABS: Vitamin B12 351 pg/mL (232-1245)
[2021-10-29 08:00] VITALS: BP 143/80; PULSE 86; RESP 14; TEMP 36.3; O2SAT 96
--- NOTE | 2021-10-29 09:40 | PC.SOCIAL ---
IMM Update Pg. 2 of IMM updated and reviewed with patient, who verbalized understanding. Copy provided.
[2021-10-29] MEDS: atorvastatin 40 mg Tablet 80 MG PO (10:26)
[2021-10-29] MEDS: clopidogrel 75 mg Tablet PO (10:28)
[2021-10-29] MEDS: amlodipine 5 mg Tablet PO (10:29)
[2021-10-29] MEDS: fluoxetine 10 mg Capsule PO (10:29)
[2021-10-29] MEDS: apixaban 5 mg Tablet PO (10:30)
[2021-10-29] MEDS: gabapentin 100 mg Capsule PO (10:30)
[2021-10-29] MEDS: ferrous sulfate EC 325 mg Tablet PO (10:30)
--- NOTE | 2021-10-29 10:30 | PC.CHAP ---
Pastoral Care Encounter/Spiritual Assessment Type of Contact [] Declined sales representative electric service visit [] Patient/Family/Request visit [] Outpatient visit [] Follow-up visit [] Physician referral [] Code/Alert [x] Routine visit [] Staff referral [] Actively dying [] Patient sleeping [] Family support [] [] Out of room [] Palliative care [] [] Receiving care in room [] Pre-surgical visit [] Trauma [] Long length of stay [] ICU visit [] Other: Relational/Emotional Strength [] Patient feels connected with others/family/visitors/staff [] Distress [] Loneliness/isolation [] Abandonment Spirituality of Patient [x] Person of Sherrie [x] Attends Latter-Day of their Sherrie [x] Believes in Prayer [] Reads Bible or Moravian materials [] There are Spiritual issues to be addressed Mica Splitter Interventions [x] Prayer [x] Active listening [x] Non-anxious presence [] Spiritual/emotional support [] Crisis/trauma care [] Spiritual counseling [] Bereavement support [] Provided bereavement packet [] Provided Bible/devotional materials [] Provided toy/stuffed animal, coloring book to patient or family member [] Provided Communion [] Anointing/[place] [] Salvation [x] Completed spiritual assessment [] Other: Impact on Illness or Injury [] Angry [] Fearful [] Anxious [] Often cries [] Exhaustion [] Unable to work [] Unable to attend latter-day [] Unable to walk/stand [] Unable to read [] Unable to drive [] Unable to eat/drink [] Unable to sleep [] Unable to be with family [] Patient intubated [] Other: Summary Time spent with patient 10 min
[2021-10-29] MEDS: metoprolol succinate ER (24 HR) 25 mg Tablet PO (10:31)
[2021-10-29] MEDS: ARIPiprazole 10 mg Tablet 15 MG PO (10:32)
[2021-10-29] MEDS: meclizine 25 mg tablet PO (10:32)
[2021-10-29] MEDS: tamsulosin 0.4 mg Capsule PO (10:33)
[2021-10-29] MEDS: pantoprazole DR 40 mg Tablet PO (10:34)
[2021-10-29] MEDS: ranolazine (12HR) 500 mg Tablet PO (10:34)
[2021-10-29] MEDS: amiodarone 200 mg Tablet PO (10:35)
[2021-10-29] MEDS: timolol 0.5% Op Soln 5 mL Btl 1 DROP EYE-BOTH (10:36)
[2021-10-29] MEDS: quetiapine 100 mg Tablet PO (10:39)
[2021-10-29] MEDS: betamethasone 0.05% Cream 15 gm 1 APPLIC TOPICAL (10:40)
[2021-10-29] MEDS: risperiDONE 1 mg Tablet 2 MG PO (10:43)
[2021-10-29] MEDS: ropinirole 0.25 mg Tablet PO (10:43)
[2021-10-29 11:04] VITALS: PULSE 76; RESP 16; O2SAT 94
== END 2021-10-29 11:04 | disposition home or self-care (01) | DRG 286 ==
LOC: ER 13:09 → ICU 14:37 → CSU 10-23 20:03 → MEDSURG 10-28 22:15
PROVIDERS: Internal Medicine; Physician Assistant; Admitting Provider Internal Medicine; Emergency Provider Emergency Medicine; PCP Emergency Medicine; Visit Provider Internal Medicine
PROC: B2111ZZ Fluoroscopy of Multiple Coronary Arteries using Low Osmolar Contrast (ICD-10-PCS; principal; 2021-10-21 16:15)
DX: I47.2 Ventricular tachycardia (principal); J18.9 Pneumonia, unspecified organism; I25.110 Atherosclerotic heart disease of native coronary artery with unstable angina pectoris; F33.3 Major depressive disorder, recurrent, severe with psychotic symptoms; I48.91 Unspecified atrial fibrillation; E11.9 Type 2 diabetes mellitus without complications; I10 Essential (primary) hypertension; R20.0 Anesthesia of skin; R53.1 Weakness; R15.9 Full incontinence of feces; N40.0 Benign prostatic hyperplasia without lower urinary tract symptoms; M19.90 Unspecified osteoarthritis, unspecified site; R07.89 Other chest pain; Z79.01 Long term (current) use of anticoagulants; Z79.02 Long term (current) use of antithrombotics/antiplatelets; Z79.84 Long term (current) use of oral hypoglycemic drugs; Z95.5 Presence of coronary angioplasty implant and graft; Z95.810 Presence of automatic (implantable) cardiac defibrillator; Z98.84 Bariatric surgery status; Z82.49 Family history of ischemic heart disease and other diseases of the circulatory system
CPT/HCPCS: 36415; 70450; 70496; 70498; 71045; 71275; 72131; 80053; 82607; 83036; 84484; 85025; 85378; 87040; 87631; 87635; 87801; 92978; 93005; 93454; 93571; 94640; 96365; 96375; 97110; 97116; 97161; 97165; 99285; C1753; C1760; C1769; C1887; C1894; C8929; G0378; J1170; J1644; J2250; J2270; J2405; J2543; J2930; J3010; J3475; J3490; J7030; J8597; Q9956; Q9967

== ENCOUNTER 2022-03-11 16:26 | Emergency (ER) | payer MEDICARE, MEDICAID, SELFPAY ==
[2022-03-11 16:36] VITALS: BP 175/97; PULSE 64; RESP 16; TEMP 37.1; O2SAT 97; BMI 42.3
--- NOTE | 2022-03-11 16:45 | ECG_ITS ---
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 Measurements Intervals [place] Rate: 64 P: 58 GA: 155 QRS: 1 QRSD: 90 T: 9 QT: 402 QTc: 415 Interpretive Statements SINUS RHYTHM LOW QRS VOLTAGE IN PRECORDIAL LEADS [QRS DEFLECTION < 1.0 mV IN CHEST LEADS] Compared to ECG 10/21/2021 13:45:51 T-wave abnormality no longer present Electronically Signed On 03-11-2022 19:31:56 CDT by Joyce Gonzalez M.D. [id number]
--- NOTE | 2022-03-11 16:45 | XRR_ITS ---
PROCEDURE INFORMATION: Exam: XR Chest Exam date and time: 03/11/2022 5:35 PM Age: 61 years old Clinical indication: Angina; Additional info: Chest pain TECHNIQUE: Imaging protocol: Radiologic exam of the chest. Views: 1 view. COMPARISON: CR XR chest 1V portable [id number] 10/26/2021 9:15 AM FINDINGS: Limitations: Somewhat limited evaluation of the lungs due to x-ray over penetration. Lungs: No apparent consolidation. Pleural spaces: No pleural effusion. No pneumothorax. Heart/Mediastinum: Borderline increased heart size. AICD/pacer device noted in the left chest wall. Bones/joints: Visualized osseous structures are intact. XR/XR chest 1V portable [id number] IMPRESSION: No acute findings.
[2022-03-11 18:20] LABS: Troponin(5th) Baseline 12 ng/L (0-15)
[2022-03-11 18:38] LABS: Basophils % 0.4 %; Eosinophils # 0.1 10^3/uL (0.0-0.8); Eosinophils % 1.5 %; Hematocrit 39.7 % (42.0-52.0); Hemoglobin 13.7 g/dL (11.7-16.6); Lymphocytes # 1.4 10^3/uL (0.8-4.8); Lymphocytes % 30.7 %; Mean Corpuscular HGB Conc 34.5 g/dL (30.0-36.0); Mean Corpuscular Hemoglobin 32.9 pg (28.0-34.0); Mean Corpuscular Volume 95.4 fl (80-94); Mean Platelet Volume 10.9 fL (7.4-10.4); Monocytes # 0.6 10^3/uL (0.2-0.9); Monocytes % 12.4 %; Neutrophils # 2.52 10^3/uL (1.8-7.7); Neutrophils % 54.8 %; Nucleated Red Blood Cells % 0 %; Platelet Count 172 10^3/cmm (130-400); Red Blood Count 4.16 10^6/uL (4.1-5.3); Red Cell Distribution Width 13.8 % (12.1-15.1); White Blood Count 4.6 10^3/uL (4.0-10.0)
--- NOTE | 2022-03-11 18:41 | W.ED.CHESTPA ---
HPI - Chest Pain General: Chief Complaint: Chest Pain Stated Complaint: Chest pains Time Seen by Provider: 03/11/22 18:09 Source: patient Mode of arrival: ambulatory Limitations: no limitations History of Present Illness: 61-year-old male that states he has been having chest pain for last 3 to 4 hours. He states he had a sharp pain in the center of his chest denies any radiation of the pain. Patient denies any shortness of breath. States the pain is currently a 3 out of 10 denies any leg swelling denies any recent trips. Denies any vomiting or diarrhea. Associated symptoms: Deny abdominal pain, dyspnea, fever(s), nausea or vomiting Review of Systems Const: Denies: fever(s), chills, body aches or change in appetite Eyes: Denies: blurry vision or eye discomfort ENMT: Denies: throat pain or dental pain Card: Reports: chest pain Resp: Denies: dyspnea GI: Denies: abdominal pain, nausea, vomiting or diarrhea : Denies: dysuria Musc: Denies: neck pain or back pain Skin/Breast: Denies: rash Neuro: Denies: headache(s) Psych: Denies: depression Phu/Lymph: Denies: easy bruising All/Imm: Denies: urticaria PFSH ED PFSH: Medical History Afib Atrial fibrillation Back pain CAD (coronary artery disease) Chest pain Chronic anticoagulation Diabetes Flu-like symptoms History of posttraumatic stress disorder (PTSD) HTN (hypertension) Major depressive disorder, recurrent severe without psychotic features Pacemaker Pneumonia SSS (sick sinus syndrome) Tachycardia Transaminitis Surgical History Gastric banding status S/P placement of cardiac pacemaker Status post cholecystectomy Family History Father CAD (coronary artery disease) Mother Cancer Social History Smoking and tobacco status: never smoked Alcohol intake: never Household members: spouse Housing: House Physical Exam Const: COMMON NORMALS: no acute distress, patient oriented x3 and healthy appearing HENMT: COMMON NORMALS: normocephalic and atraumatic HEAD & SCALP: normocephalic and atraumatic Eye: COMMON NORMALS: Equal, round and reactive pupils present and EOMs intact bilaterally PUPIL: Yes Equal, round and reactive pupils present Neck/C-Spine: COMMON NORMALS: full ROM and supple Chest: COMMONS NORMALS: normal inspection of the chest and normal palpation of entire chest wall Resp: COMMON NORMALS: normal respiratory effort, No retractions, No use of accessory muscles and clear to auscultation bilaterally AUSCULTATION: clear to auscultation bilaterally Cardio: COMMON NORMALS: regular rate, regular rhythm and No murmurs present (Cardio) RATE: regular rate RHYTHM: regular rhythm GI: COMMON NORMALS: Normal to inspection, nondistended, normoactive bowel sounds present, Soft to palpation, non-tender and no masses PALPATION: Yes Soft to palpation Extremity: COMMON NORMALS: normal to inspection and full ROM Neuro: COMMON NORMALS: patient oriented x3, moves all extremities and no focal motor deficits Psych: COMMON NORMALS: mental status grossly normal, Normal thought process present and cooperative THOUGHT PROCESS: Normal thought process present Skin: COMMON NORMALS: no rashes or lesions noted and no wounds GENERAL SKIN EXAM: no rashes or lesions noted Course Vital Signs: Vital signs: Vital Signs Temperature 98.7 F 03/11/22 16:36 Pulse Rate 71 03/11/22 20:02 Respiratory Rate 22 H 03/11/22 20:02 Blood Pressure 189/69 03/11/22 20:02 Pulse Oximetry 95 03/11/22 20:02 Oxygen Delivery Me thod 03/11/22 16:36 MDM - Chest Pain Medical Decision Making Patient presents for chest pains atypical in nature initial and repeat troponins here are negative he is stable for discharge he is to follow-up with PCP and return if worsening we will get him cardiac follow-up as well. Lab Data : 03/11/22 18:19 03/11/22 17:28 Radiology Impressions Chest X-Ray 03/11/22 16:45 IMPRESSION: No acute findings. Laboratory Results WBC 4.6 10^3/uL (4.0-10.0) 03/11/22 18:19 Corrected WBC Cancelled 03/11/22 17:28 RBC 4.16 10^6/uL (4.1-5.3) 03/11/22 18:19 Hgb 13.7 g/dL (11.7-16.6) 03/11/22 18:19 Hct 39.7 % (42.0-52.0) L 03/11/22 18:19 MCV 95.4 fl (80-94) H 03/11/22 18:19 MCH 32.9 pg (28.0-34.0) 03/11/22 18:19 MCHC 34.5 g/dL (30.0-36.0) 03/11/22 18:19 RDW 13.8 % (12.1-15.1) 03/11/22 18:19 Plt Count 172 10^3/cmm (130-400) 03/11/22 18:19 MPV 10.9 fL (7.4-10.4) H 03/11/22 18:19 Gran % Cancelled 03/11/22 17:28 Neut % (Auto) 54.8 % 03/11/22 18:19 Lymph % (Auto) 30.7 % 03/11/22 18:19 [place] % (Auto) 12.4 % 03/11/22 18:19 Eos % (Auto) 1.5 % 03/11/22 18:19 Baso % (Auto) 0.4 % 03/11/22 18:19 Neut # (Auto) 2.52 10^3/uL (1.8-7.7) 03/11/22 18:19 Lymph # (Auto) 1.4 10^3/uL (0.8-4.8) 03/11/22 18:19 [place] # (Auto) 0.6 10^3/uL (0.2-0.9) 03/11/22 18:19 Eos # (Auto) 0.1 10^3/uL (0.0-0.8) 03/11/22 18:19 Baso # (Auto) 0.0 10^3/uL (0.0-0.1) 03/11/22 18:19 Absolute Gran (auto) Cancelled 03/11/22 17:28 Nucleated RBC % (auto) 0 % 03/11/22 18:19 Nucleated RBCs # 0.0 /100WBC 03/11/22 18:19 Sodium 138 mmol/L (136-145) 03/11/22 17:28 Potassium 3.6 mmol/L (3.5-5.1) 03/11/22 17:28 Chloride 102 mmol/L (98-107) 03/11/22 17:28 Carbon Dioxide 27 mmol/L (22-29) 03/11/22 17:28 Anion Gap 12.6 (5-19) 03/11/22 17:28 BUN 6 mg/dL (8-23) L 03/11/22 17:28 Creatinine 0.8 mg/dL (0.7-1.2) 03/11/22 17:28 GFR Calculation 98.6 mL/min (90-130) 03/11/22 17:28 Glucose 83 mg/dL (65-115) 03/11/22 17:28 Calculated Osmolality 283 mOsm/kg (285-295) L 03/11/22 17:28 Calcium 8.9 mg/dL (8.5-10.5) 03/11/22 17:28 Total Bilirubin 0.5 mg/dL (0.15-1.2) 03/11/22 17:28 AST 27 U/L (0-40) 03/11/22 17:28 ALT 41 U/L (0-41) 03/11/22 17:28 Alkaline Phosphatase 144 IU/L (40-130) H 03/11/22 17:28 Troponin T Baseline 12 ng/L (0-15) 03/11/22 17:28 Troponin T 120 Minute 14.77 ng/L (0-15) 03/11/22 19:32 Delta Troponin T 2.77 ABS# (0-10) 03/11/22 19:32 NT-Pro-B Natriuret Pep Cancelled 03/11/22 17:28 Total Protein 6.2 g/dL (6.6-8.7) L 03/11/22 17:28 Albumin 3.8 g/dL (3.5-5.2) 03/11/22 17:28 Globulin 2.4 g/dL (1.3-4.6) 03/11/22 17:28 Lipase 19 U/L (13-60) 03/11/22 17:28 Discharge Plan Discharge Patient Disposition: Home Clinical Impression: Chest pain Condition: Stable Prescriptions: No Action cyproheptadine 4 mg Tablet 4 mg PO BEDTIME tamsulosin 0.4 mg Capsule 0.4 mg PO DAILY ferrous sulfate 325 mg (65 mg iron) Tablet 325 mg PO BID ranolazine 500 mg Tablet Extended Release 12 Hr 500 mg PO BID Eliquis 5 mg Tablet 5 mg PO BID clopidogrel [Plavix] 75 mg Tablet 75 mg PO DAILY rosuvastatin [Crestor] 20 mg Tablet 20 mg PO DAILY metformin 500 mg tablet 500 mg PO DAILY venlafaxine 75 mg capsule,extended release 24hr 75 mg PO DAILY amiodarone 200 mg tablet 200 mg PO DAILY venlafaxine 150 mg capsule,extended release 24hr 150 mg PO DAILY amlodipine 5 mg tablet 5 mg PO DAILY quetiapine 100 mg tablet 100 mg PO DAILY risperidone 2 mg tablet 2 mg PO DAILY ropinirole 0.25 mg tablet 0.25 mg PO DAILY Nitrostat 0.4 mg Tablet, Sublingual 0.4 mg SUBLINGUAL Q5M PRN (Reason: Chest Pain) Rx Instructions: do not exceed 3 doses per episode clobetasol 0.05 % ointment 1 applic TOPICAL DAILY timolol maleate 0.5 % drops 1 drp ophthalmic (eye) DAILY prazosin 2 mg capsule 1 mg PO BEDTIME hydroxyzine pamoate 25 mg capsule 25 mg PO BID [id number] Tablet 1 tab PO DAILY aripiprazole 15 mg tablet 15 mg PO DAILY B12 5,000-100 mcg Lozenge 1 fito SUBLINGUAL DAILY Fish Oil 60-90-500 mg Capsule 1 cap PO DAILY lisinopril 10 mg tablet 20 mg PO DAILY meclizine 25 mg Tablet 25 mg PO TID Qty: 30 0RF levofloxacin 750 mg Tablet 750 mg PO DAILY@0600 Qty: 10 0RF metoprolol succinate 25 mg tablet extended release 24 hr 12.5 mg PO DAILY Qty: 0 0RF Discharge Orders: Discharge ED (Routine); Ordered 03/11/22 Ordered By: David Huitron Referrals: Flavio Mcmullen MD [Physician] - 1-3 days Day,MD Livia [Primary Care Provider] - Discharge Diet: Advance as tolerated Discharge Activity: Resume usual activity Patient Instructions: Chest Pain (ED) Coding Level of Care Code ED Freight Engineer for Chg Fwd Exam Comprehensive
--- NOTE | 2022-03-11 18:45 | ECG_ITS ---
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 Measurements Intervals [place] Rate: 66 P: 13 GA: 176 QRS: 5 QRSD: 102 T: 7 QT: 306 QTc: 323 Interpretive Statements ELECTRONIC ATRIAL PACEMAKER LOW QRS VOLTAGE IN PRECORDIAL LEADS [QRS DEFLECTION < 1.0 mV IN CHEST LEADS] NONSPECIFIC T-WAVE ABNORMALITY ABNORMAL RHYTHM ECG Compared to ECG 03/11/2022 16:43:23 T-wave abnormality now present Sinus rhythm no longer present Electronically Signed On 03-11-2022 19:43:48 CDT by Joyce Gonzalez M.D. [id number]
[2022-03-11 19:58] VITALS: RESP 22
[2022-03-11] MEDS: morphine 4 mg/mL SDV 1 mL IVP (19:58)
[2022-03-11] MEDS: ondansetron 2 mg/ML SDV 2 mL 4 MG IVP (19:58)
[2022-03-11 20:02] VITALS: BP 189/69; PULSE 71; RESP 22; O2SAT 95
[2022-03-11 20:19] LABS: Troponin 5 2HR 14.77 ng/L (0-15)
[2022-03-11 20:31] LABS: Troponin 5 2HR Delta 2.77 ABS# (0-10)
[2022-03-11 20:36] LABS: Alanine Aminotransferase 41 U/L (0-41); Albumin Level 3.8 g/dL (3.5-5.2); Anion Gap 12.6 (5-19); Aspartate Amino Transferase 27 U/L (0-40); Calcium 8.9 mg/dL (8.5-10.5); Carbon Dioxide 27 mmol/L (22-29); Chloride 102 mmol/L (98-107); Globulin 2.4 g/dL (1.3-4.6); Glomerular Filtration Rate 98.6 mL/min (90-130); Glucose 83 mg/dL (65-115); Lipase 19 U/L (13-60); Potassium 3.6 mmol/L (3.5-5.1); Sodium 138 mmol/L (136-145); Total Bilirubin 0.5 mg/dL (0.15-1.2)
[2022-03-11 20:41] LABS: Alkaline Phosphatase 144 IU/L (40-130); Blood Urea Nitrogen 6 mg/dL (8-23); Osmolality Calculated 283 mOsm/kg (285-295); Total Protein 6.2 g/dL (6.6-8.7)
[2022-03-11 21:35] VITALS: BP 171/49; PULSE 72; RESP 13; TEMP 36.4; O2SAT 97
[2022-03-11 21:39] VITALS: BP 158/67; PULSE 70; RESP 20; TEMP 36.4; O2SAT 96
--- NOTE | 2022-03-13 11:13 | DCPLANNER ---
Addendum entered by Aurora Aguirre 03/19/22 15:08: Patient had a follow up appointment scheduled for 03.19.22 with Caro Santos at [facility] - patient did attend appointment. Original Note: consumer insight manager had message to schedule a follow up appointment for patient with cardiology for chest pain. consumer insight manager sent patients information to the front office staff at [facility]. Patients information will be printed and reviewed. Clinic will call patient with appointment information.
== END 2022-03-11 22:00 | disposition home or self-care (01) ==
PROVIDERS: Emergency Medicine; Emergency Provider Emergency Medicine; PCP Emergency Medicine
DX: R07.9 Chest pain, unspecified (principal); Z79.01 Long term (current) use of anticoagulants; Z79.84 Long term (current) use of oral hypoglycemic drugs; Z79.02 Long term (current) use of antithrombotics/antiplatelets; I25.10 Atherosclerotic heart disease of native coronary artery without angina pectoris; E11.9 Type 2 diabetes mellitus without complications; I10 Essential (primary) hypertension; Z95.0 Presence of cardiac pacemaker
CPT/HCPCS: 36415; 71045; 80053; 83690; 84484; 85025; 93005; 96374; 96375; 99285; J2270; J2405

== ENCOUNTER 2022-03-14 12:44 | Observation (INO) | payer MEDICARE, MEDICAID, SELFPAY ==
[2022-03-14] VITALS (13 sets, daily range): BP systolic 147–199; BP diastolic 85–135; PULSE 64–75; RESP 12–18; TEMP 36.5–36.9; O2SAT 92–98; BMI 42.3
--- NOTE | 2022-03-14 12:47 | XRR_ITS ---
PROCEDURE INFORMATION: Exam: XR Chest Exam date and time: 03/14/2022 1:10 PM Age: 61 years old Clinical indication: Sternal or substernal pain; Prior surgery; Surgery type: Pacemaker; Additional info: Chest pain TECHNIQUE: Imaging protocol: Radiologic exam of the chest. Views: 1 view. COMPARISON: CR (CHEST, ) 03/11/2022 5:35 PM FINDINGS: Tubes, catheters and devices: A cardiac device is present in the left chest bipolar leads are intact and well positioned. Lungs: Low lung volumes seen. The lungs are otherwise clear. . No consolidation. Pleural spaces: Unremarkable. No pleural effusion. No pneumothorax. Heart/Mediastinum: Unremarkable. No cardiomegaly. Bones/joints: Unremarkable. XR/XR chest 1V portable [id number] IMPRESSION: 1. No acute findings. 2. The cardiac device left chest in good position
--- NOTE | 2022-03-14 12:56 | ECG_ITS ---
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 Measurements Intervals [place] Rate: 70 P: 99 SD: 175 QRS: 1 QRSD: 104 T: 13 QT: 294 QTc: 319 Interpretive Statements ELECTRONIC ATRIAL PACEMAKER LOW QRS VOLTAGE IN PRECORDIAL LEADS [QRS DEFLECTION < 1.0 mV IN CHEST LEADS] NONSPECIFIC T-WAVE ABNORMALITY ABNORMAL RHYTHM ECG Compared to ECG 03/11/2022 18:54:44 No significant changes Electronically Signed On 03-14-2022 19:11:22 CDT by Carmina Wallace M.D. [id number]
--- NOTE | 2022-03-14 13:12 | ED_ITS ---
HPI - Chest Pain General: Chief Complaint: Chest Pain Stated Complaint: CP; syncope Time Seen by Provider: 03/14/22 12:50 History of Present Illness: Mr. Alexander is a 61-year-old gentleman with history of atrial fibrillation on Eliquis, CAD with multiple PCIs, diabetes, hypertension, ICD, history of ventricular tachycardia who presents to the emergency department due to chest pain. He reports left anterior and substernal heaviness that started 2 days ago at rest. Initially it was fairly mild however has become worse and persisted since time of onset. Endorses associated mild shortness of breath, nausea, and generalized weakness. Earlier today he had lightheadedness upon standing associated with syncope, no reported seizure activity. Overall course of symptoms has worsened. Intensity is moderate. Denies frequent history of chest pain in the past though does have extensive cardiac history. No other specific changes in health, exacerbating, or alleviating factors identified. Onset (ago): day(s) Timing of current episode: constant Prior episodes: Yes Onset: during rest Pain location: substernal and left chest Pain radiation: left arm and neck Severity: moderate Quality: heaviness Relieving factors: nothing Exacerbating factors: nothing Associated symptoms: Reports dyspnea, nausea and syncope Review of Systems General: Reports: 10 or more systems reviewed and unremarkable except in HPI and below Card: Reports: syncope Resp: Reports: dyspnea GI: Reports: nausea PFSH ED PFSH: Medical History Afib Atrial fibrillation Back pain CAD (coronary artery disease) Chest pain Chest pain Chronic anticoagulation Diabetes Flu-like symptoms History of posttraumatic stress disorder (PTSD) HTN (hypertension) Hypertensive urgency Major depressive disorder, recurrent severe without psychotic features Pacemaker Pneumonia SSS (sick sinus syndrome) Syncope Tachycardia Transaminitis Surgical History Gastric banding status S/P placement of cardiac pacemaker Status post cholecystectomy Family History Father CAD (coronary artery disease) Mother Cancer Social History Smoking and tobacco status: never smoked Alcohol intake: never Household members: spouse Housing: House Physical Exam Const: COMMON NORMALS: patient oriented x3 and alert GENERAL APPEARANCE: cooperative and well developed HENMT: COMMON NORMALS: normocephalic and atraumatic HEAD & SCALP: normocephalic and atraumatic THROAT: posterior oropharynx normal Eye: COMMON NORMALS: conjunctivae normal CONJUNCTIVA: Yes conjunctivae normal SCLERA: sclerae normal Neck/C-Spine: COMMON NORMALS: supple GENERAL: Yes trachea midline Resp: COMMON NORMALS: clear to auscultation bilaterally EFFORT & INSPECTION: Yes able to speak in complete sentences AUSCULTATION: clear to auscultation bilaterally Cardio: COMMON NORMALS: regular rate and regular rhythm RATE: regular rate RHYTHM: regular rhythm GI: COMMON NORMALS: Soft to palpation PALPATION: Yes Soft to palpation and No Tenderness to palpation present (GI) Extremity: GENERAL: Yes normal exam except as noted and No edema Neuro: COMMON NORMALS: patient oriented x3, CN's II-XII intact bilaterally, moves all extremities, no focal motor deficits and no sensory deficits noted SENSORIUM/ORIENTATION: Yes alert and No Orientation impaired Psych: COMMON NORMALS: mental status grossly normal and Normal thought process present THOUGHT PROCESS: Normal thought process present Course ED course: - Patient was seen and evaluated by me at bedside - Patient placed on cardiac monitors, IV access obtained - Initial evaluation notable for exam as above. EKG shows sinus rhythm with nonspecific ST segment abnormalities, no STEMI. - Labs and xrays personally interpreted by me -Aspirin and analgesia given. - Labs notable for no leukocytosis, normal hemoglobin. Metabolic end without acute pathology requiring intervention. - Imaging notable for no lobar consolidation or pneumothorax on chest x-ray. Head CT negative for acute intracranial hemorrhage. CTA of the chest obtained due to elevated D-dimer. No evidence of PE. -Patient noted to become hypotensive and antihypertensives ordered. - Upon serial reexamination after treatment the patient was mildly improved - Based on patient history, evaluation, and testing as interpreted the most likely cause of the patient's condition is hypertensive urgency and chest pain. Syncope of uncertain etiology. - The results of ED evaluation were discussed with the patient including plan for admission due to requirement for level of care not available if discharged to prevent significant worsening/deterioration. - Admitting service was contacted and Dr Roldan with the hospitalist service agreed to admit the patient - Patient was admitted without further deterioration or significant events. Note: Click bubbles or prepopulated farrell in note writing are used for assistance with data collection and billing and are inherently more limited than narrative and other text portions of this note. Please use narrative for additional clinical history and defer to narrative/free test for any case of contradictory information. If information appears in only free text or click bubble it should be considered present or absent as reported. Please contact note sign writer letterer or painter for clarifications of clinical information or contradictory information. MDM is a brief summary, contradictory or erroneous seeming information should be clarified and full note should be reviewed. Vital Signs: Vital signs: Vital Signs Temperature 97.9 F 03/16/22 11:22 Pulse Rate 92 03/16/22 15:38 Respiratory Rate 18 03/16/22 11:22 Blood Pressure 146/79 03/16/22 17:30 Pulse Oximetry 95 03/16/22 11:22 Oxygen Delivery Me thod 03/15/22 15:54 MDM - Chest Pain Medical Decision Making 61-year-old gentleman with complex medical history presenting with chest pain and syncope. Patient found to have hypertensive urgency and admitted for further cardiac evaluation. Medical Records I reviewed the patient's medical records. Lab Data I reviewed the patient's lab results. : 03/15/22 05:25 03/15/22 05:25 Radiology Impressions Chest X-Ray 03/14/22 12:47 IMPRESSION: 1. No acute findings. 2. The cardiac device left chest in good position Chest CTA 03/14/22 14:40 IMPRESSION: 1. No pulmonary embolus. 2. Poor opacification of the thoracic aorta, however no obvious dissection is identified. 3. Mild pericardial fluid and/or thickening. 4. Severe calcified coronary artery disease. 5. Mild bilateral pleural fluid collections. Head CT 03/14/22 14:40 IMPRESSION: No acute intracranial abnormality. Laboratory Results WBC 5.0 10^3/uL (4.0-10.0) 03/14/22 13:20 RBC 4.31 10^6/uL (4.1-5.3) 03/14/22 13:20 Hgb 15.0 g/dL (11.7-16.6) 03/14/22 13:20 Hct 42.5 % (42.0-52.0) 03/14/22 13:20 MCV 98.6 fl (80-94) H 03/14/22 13:20 MCH 34.8 pg (28.0-34.0) H 03/14/22 13:20 MCHC 35.3 g/dL (30.0-36.0) 03/14/22 13:20 RDW 14.4 % (12.1-15.1) 03/14/22 13:20 Plt Count 188 10^3/cmm (130-400) 03/14/22 13:20 MPV 11.6 fL (7.4-10.4) H 03/14/22 13:20 Neut % (Auto) 66.9 % 03/14/22 13:20 Lymph % (Auto) 23.1 % 03/14/22 13:20 [place] % (Auto) 8.0 % 03/14/22 13:20 Eos % (Auto) 1.6 % 03/14/22 13:20 Baso % (Auto) 0.2 % 03/14/22 13:20 Neut # (Auto) 3.33 10^3/uL (1.8-7.7) 03/14/22 13:20 Lymph # (Auto) 1.2 10^3/uL (0.8-4.8) 03/14/22 13:20 [place] # (Auto) 0.4 10^3/uL (0.2-0.9) 03/14/22 13:20 Eos # (Auto) 0.1 10^3/uL (0.0-0.8) 03/14/22 13:20 Baso # (Auto) 0.0 10^3/uL (0.0-0.1) 03/14/22 13:20 Nucleated RBC % (auto) 0 % 03/14/22 13:20 Nucleated RBCs # 0.0 /100WBC 03/14/22 13:20 D-Dimer 0.62 ug/mIFEU (0-0.59) H 03/14/22 13:20 Sodium 141 mmol/L (136-145) 03/14/22 13:20 Potassium 3.7 mmol/L (3.5-5.1) 03/14/22 13:20 Chloride 103 mmol/L (98-107) 03/14/22 13:20 Carbon Dioxide 27 mmol/L (22-29) 03/14/22 13:20 Anion Gap 14.7 (5-19) 03/14/22 13:20 BUN 5 mg/dL (8-23) L 03/14/22 13:20 Creatinine 0.8 mg/dL (0.7-1.2) 03/14/22 13:20 GFR Calculation 98.6 mL/min (90-130) 03/14/22 13:20 Glucose 193 mg/dL (65-115) H 03/14/22 13:20 Calculated Osmolality 295 mOsm/kg (285-295) 03/14/22 13:20 Calcium 9.0 mg/dL (8.5-10.5) 03/14/22 13:20 Total Bilirubin 0.4 mg/dL (0.15-1.2) 03/14/22 13:20 AST 23 U/L (0-40) 03/14/22 13:20 ALT 24 U/L (0-41) 03/14/22 13:20 Alkaline Phosphatase 138 IU/L (40-130) H 03/14/22 13:20 Troponin T Baseline 13 ng/L (0-15) 03/14/22 13:20 Troponin T 120 Minute 13.30 ng/L (0-15) 03/14/22 16:25 Delta Troponin T 0.30 ABS# (0-10) 03/14/22 16:25 Troponin T Hi Sens 6Hr 14.87 ng/L (0-15) 03/14/22 19:45 Troponin T Hi Sens 6Hr Delta 1.87 ng/L (0-12) 03/14/22 19:45 NT-Pro-B Natriuret Pep 408 pg/mL (0-125) H 03/14/22 17:09 Total Protein 6.1 g/dL (6.6-8.7) L 03/14/22 13:20 Albumin 3.6 g/dL (3.5-5.2) 03/14/22 13:20 Globulin 2.5 g/dL (1.3-4.6) 03/14/22 13:20 Lipase 19 U/L (13-60) 03/14/22 13:20 Discharge Plan Discharge Patient Disposition: Placed in Observation Admit Provider: Diana Roldan Clinical Impression: Chest pain, Syncope, Hypertensive urgency Discharge Diet: Cardiac Discharge Activity: Increase activity as tolerated Coding Level of Care Code ED Pole Tester for Chg Fwd Exam Comprehensive
[2022-03-14] MEDS: aspirin 81 mg Chew Tablet 324 MG PO (13:21)
[2022-03-14] MEDS: morphine 4 mg/mL SDV 1 mL IVP ×3 (13:21→21:17)
[2022-03-14 14:11] LABS: Basophils % 0.2 %; Eosinophils # 0.1 10^3/uL (0.0-0.8); Eosinophils % 1.6 %; Hematocrit 42.5 % (42.0-52.0); Lymphocytes # 1.2 10^3/uL (0.8-4.8); Lymphocytes % 23.1 %; Mean Corpuscular HGB Conc 35.3 g/dL (30.0-36.0); Mean Corpuscular Hemoglobin 34.8 pg (28.0-34.0); Mean Corpuscular Volume 98.6 fl (80-94); Mean Platelet Volume 11.6 fL (7.4-10.4); Monocytes # 0.4 10^3/uL (0.2-0.9); Neutrophils # 3.33 10^3/uL (1.8-7.7); Neutrophils % 66.9 %; Nucleated Red Blood Cells % 0 %; Platelet Count 188 10^3/cmm (130-400); Red Blood Count 4.31 10^6/uL (4.1-5.3); Red Cell Distribution Width 14.4 % (12.1-15.1)
[2022-03-14 14:23] LABS: Alanine Aminotransferase 24 U/L (0-41); Albumin Level 3.6 g/dL (3.5-5.2); Alkaline Phosphatase 138 IU/L (40-130); Blood Urea Nitrogen 5 mg/dL (8-23); Carbon Dioxide 27 mmol/L (22-29); Chloride 103 mmol/L (98-107); Globulin 2.5 g/dL (1.3-4.6); Glomerular Filtration Rate 98.6 mL/min (90-130); Glucose 193 mg/dL (65-115); Lipase 19 U/L (13-60); Osmolality Calculated 295 mOsm/kg (285-295); Sodium 141 mmol/L (136-145); Total Bilirubin 0.4 mg/dL (0.15-1.2); Total Protein 6.1 g/dL (6.6-8.7)
[2022-03-14 14:24] LABS: Troponin(5th) Baseline 13 ng/L (0-15)
[2022-03-14 14:30] LABS: Anion Gap 14.7 (5-19); Aspartate Amino Transferase 23 U/L (0-40); Potassium 3.7 mmol/L (3.5-5.1)
[2022-03-14 14:39] LABS: D Dimer 0.62 ug/mIFEU (0-0.59)
--- NOTE | 2022-03-14 14:40 | CTR_ITS ---
PROCEDURE INFORMATION: Exam: CTA Chest With Contrast Exam date and time: 03/14/2022 3:59 PM Age: 61 years old Clinical indication: Pain; Chest pressure; Additional info: Syncope, chest pain, elevated ddimer TECHNIQUE: Imaging protocol: Computed tomographic angiography of the chest with contrast. 3D rendering (Not supervised by radiologist): MIP and/or 3D reconstructed images were created by the technologist. Radiation optimization: All CT scans at this facility use at least one of these dose optimization techniques: automated exposure control; mA and/or kV adjustment per patient size (includes targeted exams where dose is matched to clinical indication); or iterative reconstruction. Contrast material: OMNI 350; Contrast volume: 82 ml; Contrast route: INTRAVENOUS (IV); COMPARISON: CT angio chest PE protcl [id number] 10/23/2021 3:27 PM RADIATION DOSE METRICS: Total DLP (mGy-cm): 464.4 FINDINGS: Tubes, catheters and devices: Stable left pacemaker. Pulmonary arteries: No pulmonary embolus. Great vessels off aortic arch: Aberrant origin of the right subclavian artery which is usually not associated with other congenital heart disease. This is essentially a normal variant. Aorta: Calcification of the thoracic aorta and/or great vessels consistent with atherosclerotic vessel disease. Poor opacification of the thoracic aorta, however no obvious dissection is identified. Lungs: Scarring and/or atelectasis in the inferior segment of the lingula. Pleural spaces: Mild bilateral pleural fluid collections. Heart: Mild pericardial fluid and/or thickening. Severe calcified coronary artery disease. Lymph nodes: Calcified right hilar nodes and/or mediastinal nodes and/or lung granulomas consistent with old granulomatous disease. Gallbladder and bile ducts: Surgical clips in the gallbladder fossa consistent with cholecystectomy. Stomach and bowel: Previous gastroplasty. Bones/joints: Moderate thoracic spondylosis. One or more healed left rib fractures. Soft tissues: Unremarkable. Other findings: Examination is limited secondary to motion artifact. Postoperative changes over the gastroesophageal junction. CT/CT angio chest PE protcl [id number] IMPRESSION: 1. No pulmonary embolus. 2. Poor opacification of the thoracic aorta, however no obvious dissection is identified. 3. Mild pericardial fluid and/or thickening. 4. Severe calcified coronary artery disease. 5. Mild bilateral pleural fluid collections.
--- NOTE | 2022-03-14 14:40 | CTR_ITS ---
PROCEDURE INFORMATION: Exam: CT Head Without Contrast Exam date and time: 03/14/2022 3:54 PM Age: 61 years old Clinical indication: Syncope and collapse; Prior surgery TECHNIQUE: Imaging protocol: Computed tomography of the head without contrast. Radiation optimization: All CT scans at this facility use at least one of these dose optimization techniques: automated exposure control; mA and/or kV adjustment per patient size (includes targeted exams where dose is matched to clinical indication); or iterative reconstruction. COMPARISON: CT head wo con* [id number] 10/27/2021 4:10 PM RADIATION DOSE METRICS: Total DLP (mGy-cm): 1172.18 FINDINGS: Brain: Normal. No hemorrhage. Unremarkable white matter. No mass effect. Cerebral ventricles: No ventriculomegaly. Paranasal sinuses: Visualized sinuses are unremarkable. No fluid levels. Mastoid air cells: Visualized mastoid air cells are well aerated. Bones/joints: Unremarkable. No acute fracture. Soft tissues: Unremarkable. CT/CT head wo con* [id number] IMPRESSION: No acute intracranial abnormality.
--- NOTE | 2022-03-14 15:11 | ECG_ITS ---
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 Measurements Intervals [place] Rate: 71 P: 256 [place]: 178 QRS: 7 QRSD: 104 T: 12 QT: 306 QTc: 334 Interpretive Statements ELECTRONIC ATRIAL PACEMAKER POSSIBLE RIGHT VENTRICULAR CONDUCTION DELAY [RSR (QR) IN V1/V2] NONSPECIFIC T-WAVE ABNORMALITY ABNORMAL RHYTHM ECG Compared to ECG 03/14/2022 12:56:55 No significant changes Electronically Signed On 03-14-2022 19:26:53 CDT by Carmina Wallace M.D. [email or web address] centerQian Xiao'er/store/[id number]
[2022-03-14] MEDS: lidocaine 2% viscous 15 ML, aluminum-mag hydrox-simethicon 30 ML, sucralfate oral liq 1 GM PO (15:26)
--- NOTE | 2022-03-14 15:38 | ECG_ITS ---
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 Measurements Intervals [place] Rate: 93 P: 93 [place]: 136 QRS: 46 QRSD: 90 T: 87 QT: 351 QTc: 439 Interpretive Statements SINUS RHYTHM NONSPECIFIC T-WAVE ABNORMALITY Compared to ECG 03/14/2022 15:11:04 Atrial-paced complex(es) or rhythm no longer present T-wave abnormality still present Electronically Signed On 03-14-2022 19:26:57 CDT by Carmina Wallace M.D. [id number]
[2022-03-14] MEDS: cloNIDine 0.1 mg Tablet PO (16:11)
[2022-03-14] MEDS: lisinopril 20 mg Tablet PO (16:12)
[2022-03-14] MEDS: iohexol 350 mg/mL 100 mL Btl IV (18:34)
[2022-03-14] MEDS: labetalol 5 mg/mL SDV 20mL 20 MG IVP (19:15)
[2022-03-14 19:17] LABS: NT Pro B Type Natriuretic Pept 408 pg/mL (0-125)
[2022-03-14 20:11] LABS: Troponin 5 6HR 14.87 ng/L (0-15)
[2022-03-14 20:24] LABS: Troponin 5 6HR Delta 1.87 ng/L (0-12)
--- NOTE | 2022-03-14 20:52 | PM.HP ---
Providers/Chief Complaint Primary Care Provider: Livia Ridley MD Chief Complaint: CP; syncope History of Present Illness Jeremie Alexander is a 61 year old male with past medical history of atrial fibrillation on Eliquis, CAD with multiple PCI's, diabetes, hypertension, status post ICD, history of ventricular tachycardia, sick sinus syndrome, depression who presented to the hospital today with complaint of left anterior and substernal heaviness that started 2 days ago at rest. It has become worse and has persisted since time of onset. He also says he has been mildly short of breath and has been having nausea and some generalized weakness. Today when he got up he felt lightheaded as well. He states this happened when he stood up. He is unsure if this happened because he stood up too fast. He did stumble however did not pass out completely. Denies having a seizure. The chest pain has been 6 out of 10 out of intensity and is more of pressure heaviness instead of stabbing pain. It is located in the central area substernally and it does radiate to the left side of the neck and left arm. He says the pain gets better if he lays down. It gets exacerbated with movement. He also felt some shortness of breath along with the pain and the pain occurred. Patient denies being a smoker and has never had alcohol. When seen, he was chest pain free. ED course: Blood pressure 171/99, respirate 18, pulse 72, temperature 98.5, pulse ox 98 on room air. EKG did not show any acute ischemic changes. D-dimer 0.62. BNP 408. Blood pressure has been elevated 1 80-1 90 systolic over 100-[address] negative for acute intracranial abnormality, CTA chest rule out pulmonary embolism, mild pericardial fluid or thickening present, mild bilateral pleural fluid collections present. Medications/Allergies Home Medications Medication Instructions Recorded Confirmed Last Taken Type apixaban 5 mg tablet (Eliquis) 5 mg PO BID 11/23/20 03/14/22 03/14/22 History ferrous sulfate 325 mg (65 mg 325 mg PO BID 11/23/20 03/14/22 03/14/22 History iron) tablet ranolazine 500 mg tablet,extended 500 mg PO BID 11/23/20 03/14/22 03/14/22 History release,12 hr tamsulosin 0.4 mg capsule 0.4 mg PO DAILY 11/23/20 03/14/22 03/14/22 History hydroxyzine pamoate 25 mg capsule 25 mg PO BID 10/21/21 03/14/22 03/14/22 History lisinopril 10 mg tablet 20 mg PO DAILY 10/21/21 03/14/22 03/14/22 History rfmviijnfagd-yywsojww-bpadxb tablet 1 tab PO DAILY 10/21/21 03/14/22 03/14/22 History nitroglycerin 0.4 mg sublingual 0.4 mg sublingual Q5M PRN Chest 10/21/21 03/14/22 Unknown History tablet (Nitrostat) Pain quetiapine 100 mg tablet 100 mg PO BEDTIME 10/21/21 03/14/22 03/13/22 History risperidone 2 mg tablet 2 mg PO BEDTIME 10/21/21 03/14/22 03/13/22 History furosemide 40 mg tablet (Lasix) 40 mg PO DAILY 03/14/22 03/14/22 03/14/22 History metoprolol succinate 25 mg 25 mg PO BID 03/14/22 03/14/22 03/14/22 History tablet,extended release 24 hr mirtazapine 30 mg tablet (Remeron) 30 mg PO BEDTIME 03/14/22 03/14/22 03/13/22 History sertraline 50 mg tablet (Zoloft) 50 mg PO DAILY 03/14/22 03/14/22 03/14/22 History testosterone cypionate 200 mg/mL 200 mg SUBCUT Q14D 03/14/22 03/14/22 Unknown History intramuscular kit Allergies Allergy/AdvReac Type Severity Reaction Status Date / Time ticagrelor [From Brilinta] Allergy Unknown ALGY-Hives Verified 10/21/21 13:18 trazodone Allergy Unknown ADR-Nightma Verified 10/21/21 13:18 re PFSH Acute PFSH: Medical History (Updated 03/14/22 @ 21:15 by Diana Roldan MD) Afib Atrial fibrillation Back pain CAD (coronary artery disease) Chest pain Chronic anticoagulation Diabetes Flu-like symptoms History of posttraumatic stress disorder (PTSD) HTN (hypertension) Major depressive disorder, recurrent severe without psychotic features Pacemaker Pneumonia SSS (sick sinus syndrome) Tachycardia Transaminitis Surgical History Gastric banding status S/P placement of cardiac pacemaker Status post cholecystectomy Family History Father CAD (coronary artery disease) Mother Cancer Social History Smoking and tobacco status: never smoked Alcohol intake: never Household members: spouse Housing: House Vitals/I&O/Wt Last Vital Signs Temp 98.5 F 03/14/22 13:23 Pulse 75 03/14/22 19:00 Resp 16 03/14/22 19:00 BP 199/104 03/14/22 19:00 Pulse Ox 94 03/14/22 19:00 O2 Del Method 03/14/22 19:00 Weight last 48 hrs Weight 108.409 kg Physical Exam Narrative: General: Alert oriented x3, patient seen laying in bed HEENT: Normocephalic, atraumatic, EOMI, breathing normally on room air Cardio: Regular rate rhythm, normal S1-S2, no murmurs Respiratory: Good bilateral air entry, no wheezes no rhonchi appreciated GI: Abdomen soft, nontender, nondistended, bowel sounds + Behavior: Appropriate and cooperative Extremities: No LE edema Data : 03/14/22 13:20 03/14/22 13:20 A&P Assessment and plan (1) Chest pain: Status: Acute (2) Syncope: Status: Acute (3) Hypertensive urgency: Status: Acute (4) Atrial fibrillation: Status: Acute (5) Diabetes: Status: Acute (6) Pacemaker: Status: Acute (7) Major depressive disorder, recurrent severe without psychotic features: Status: Acute (8) HTN (hypertension): Status: Acute (9) CAD (coronary artery disease): Status: Acute Plan #Hypertensive urgency #Substernal chest pain radiating to left arm associated with shortness of breath #Acute on chronic congestive heart failure #Small bilateral pleural effusions #CAD with multiple PCI's, most recent angiograms October 2021 #Atrial fibrillation chronically on Eliquis #Sick sinus syndrome #History of ventricular tachycardia #Implantation of ICD #Depression, history of suicidal ideation & Inpatient psychiatric hospitalization - Continue Eliquis, ranolazine, quetiapine, metoprolol, sertraline ? We will optimize blood pressure with medications - We will diurese patient. Lasix 40 IV twice daily ? Continue lisinopril 20 mg daily, -Patient's elevated blood pressure can have component of anxiety as well. I will order low-dose Xanax twice daily as needed. ? Troponins negative x3. Delta negative. EKG without any ischemic changes. Chest pain possibly associated with hypertension at this time. -We will check echo for to rule out any wall motion abnormality ? We will order as needed nitro for chest pain. ? We will continue to monitor patient on telemetry ? We will admit for stress test. Consider cardiology consult Full code DVT prophylaxis: Heparin 5000 subcu twice daily Attestations Medical Necessity Statement*: Admit for observation for cardiac stress test and echo. His blood pressure will also need to be managed and medications optimized. Coding Level of Care Code Acute Radio Board Operator Announcer for g Fwd Diagnoses Chest pain R07.9 Syncope R55 Hypertensive urgency I16.0 Atrial fibrillation I48.91 Diabetes E11.9 Pacemaker Z95.0 Major depressive disorder, recurrent severe without psychotic features F33.2 HTN (hypertension) I10 CAD (coronary artery disease) I25.10
--- NOTE | 2022-03-14 23:17 | ECG_ITS ---
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 Measurements Intervals [place] Rate: 85 P: 73 [place]: 212 QRS: -1 QRSD: 110 T: 3 QT: 305 QTc: 364 Interpretive Statements ELECTRONIC ATRIAL PACEMAKER POSSIBLE RIGHT VENTRICULAR CONDUCTION DELAY [RSR (QR) IN V1/V2] NONSPECIFIC T-WAVE ABNORMALITY ABNORMAL RHYTHM ECG Compared to ECG 03/14/2022 15:38:55 Sinus rhythm no longer present T-wave abnormality still present Electronically Signed On 03-15-2022 19:09:01 CDT by Carmina Wallace M.D. [email or web address]/store/[id number]
[2022-03-14] MEDS: isosorbide mononitrate ER 30 mg Tablet PO (23:46)
[2022-03-14] MEDS: risperiDONE 2 mg Tablet PO (23:46)
[2022-03-14] MEDS: quetiapine 100 mg Tablet PO (23:46)
[2022-03-14] MEDS: mirtazapine 30 mg Tablet PO (23:46)
[2022-03-15] VITALS (8 sets, daily range): BP systolic 130–153; BP diastolic 69–82; PULSE 60–71; RESP 16–18; TEMP 36.4–36.8; O2SAT 92–97
[2022-03-15] MEDS: acetaminophen 325 mg Tablet 650 MG PO ×3 (00:58→17:31)
[2022-03-15] MEDS: HYDROcodone-acetaminophen 5-325 mg Tablet 1 TAB PO (02:23)
--- NOTE | 2022-03-15 03:22 | ECG_ITS ---
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 Measurements Intervals [place] Rate: 73 P: 54 [place]: 181 QRS: 0 QRSD: 105 T: 12 QT: 306 QTc: 339 Interpretive Statements ELECTRONIC ATRIAL PACEMAKER LOW QRS VOLTAGE IN PRECORDIAL LEADS [QRS DEFLECTION < 1.0 mV IN CHEST LEADS] POSSIBLE RIGHT VENTRICULAR CONDUCTION DELAY [RSR (QR) IN V1/V2] NONSPECIFIC T-WAVE ABNORMALITY ABNORMAL RHYTHM ECG Compared to ECG 03/14/2022 23:17:09 Low QRS voltage now present T-wave abnormality still present Electronically Signed On 03-15-2022 19:09:18 CDT by Carmina Wallace M.D. [id number]
[2022-03-15 06:10] LABS: Basophils % 0.4 %; Eosinophils # 0.1 10^3/uL (0.0-0.8); Eosinophils % 1.8 %; Hematocrit 37.5 % (42.0-52.0); Hemoglobin 12.6 g/dL (11.7-16.6); Lymphocytes # 1.6 10^3/uL (0.8-4.8); Lymphocytes % 32.4 %; Mean Corpuscular HGB Conc 33.6 g/dL (30.0-36.0); Mean Corpuscular Hemoglobin 33.2 pg (28.0-34.0); Mean Corpuscular Volume 98.7 fl (80-94); Mean Platelet Volume 11.1 fL (7.4-10.4); Monocytes # 0.7 10^3/uL (0.2-0.9); Monocytes % 13.2 %; Neutrophils # 2.57 10^3/uL (1.8-7.7); Nucleated Red Blood Cells % 0 %; Platelet Count 164 10^3/cmm (130-400); Red Cell Distribution Width 14.6 % (12.1-15.1); White Blood Count 4.9 10^3/uL (4.0-10.0)
[2022-03-15 06:38] LABS: Alanine Aminotransferase 20 U/L (0-41); Albumin Level 3.3 g/dL (3.5-5.2); Alkaline Phosphatase 119 IU/L (40-130); Anion Gap 8.7 (5-19); Aspartate Amino Transferase 20 U/L (0-40); Blood Urea Nitrogen 7 mg/dL (8-23); Calcium 8.7 mg/dL (8.5-10.5); Carbon Dioxide 31 mmol/L (22-29); Chloride 107 mmol/L (98-107); Globulin 2.1 g/dL (1.3-4.6); Glomerular Filtration Rate 86.1 mL/min (90-130); Glucose 111 mg/dL (65-115); Magnesium 2.3 mg/dL (1.7-2.3); Osmolality Calculated 295 mOsm/kg (285-295); Potassium 3.7 mmol/L (3.5-5.1); Sodium 143 mmol/L (136-145); Total Bilirubin 0.3 mg/dL (0.15-1.2); Total Protein 5.4 g/dL (6.6-8.7)
[2022-03-15] MEDS: FUROsemide 10 mg/mL SDV 4mL 40 MG IVP (06:38)
[2022-03-15] MEDS: hyDROXYzine 25 mg Capsule PO (09:32)
[2022-03-15] MEDS: sertraline 50 mg Tablet PO (09:32)
[2022-03-15] MEDS: isosorbide mononitrate ER 30 mg Tablet PO (09:32)
[2022-03-15] MEDS: tamsulosin 0.4 mg Capsule PO (09:32)
[2022-03-15] MEDS: lisinopril 10 mg Tablet 20 MG PO (09:32)
[2022-03-15] MEDS: metoprolol succinate ER (24 HR) 25 mg Tablet PO ×2 (09:32→17:32)
[2022-03-15] MEDS: ranolazine (12HR) 500 mg Tablet PO ×2 (09:32→17:31)
[2022-03-15] MEDS: apixaban 5 mg Tablet PO ×2 (09:33→17:32)
[2022-03-15] MEDS: pantoprazole DR 40 mg Tablet PO (09:33)
[2022-03-15] MEDS: ferrous sulfate EC 325 mg Tablet PO ×2 (09:33→17:31)
--- NOTE | 2022-03-15 11:09 | P.PN_ITS ---
Subjective Subjective: Patient is able to pinpoint the area where he is hurting, he is pointing towards his left chest area and able to put a finger on it He got 1 dose of hydrocodone, wanted to sleep Vitals/I&O/Wt Last Vital Signs Temp 97.8 F 03/15/22 07:30 Pulse 71 03/15/22 07:30 Resp 16 03/15/22 07:30 BP 145/82 03/15/22 07:30 Pulse Ox 92 03/15/22 07:30 O2 Del Method 03/14/22 21:58 03/14/22 03/15/22 03/15/22 22:59 06:59 14:59 Intake Total 240 / 240 50 / 290 360 / 360 Output Total 300 / 300 Balance 240 / 240 50 / 290 60 / 60 Weight last 48 hrs Weight 108.409 kg Weight 108.409 kg Physical Exam Narrative: Patient is not showing any signs of distress Is comfortable He wanted to sleep On room air Nonfocal neuro exam S1, S2 No audible stridor or wheezing Abdomen distended however soft Nonfocal neuro Data : 03/15/22 05:25 03/15/22 05:25 A&P Assessment and plan (1) Chest pain: Status: Acute (2) Hypertensive urgency: Status: Acute (3) Atrial fibrillation: Status: Acute (4) CAD (coronary artery disease): Status: Acute (5) Diabetes: Status: Acute (6) Pacemaker: Status: Acute (7) HTN (hypertension): Status: Acute (8) Major depressive disorder, recurrent severe without psychotic features: Status: Acute Plan There is plan to do cardiac stress test tomorrow If negative I will discharge him home Is able to pinpoint the area of chest pain Troponin trending down Hemodynamically stable Patient is stating that he had normal coronary angiogram about 3 months ago Clinically looks slightly volume overloaded, I will decrease the dose of Lasix BNP slightly high at 408 EKG showing atrial paced rhythm Full code Cardiac diet N.p.o. after midnight History of A. fib continue Eliquis Attestations Medical Necessity Statement*: Discharge tomorrow Time Spent in Patient Care: 30 Coding Level of Care Code Acute Daytime Caregiver for g Fwd Diagnoses Chest pain R07.9 Hypertensive urgency I16.0 Atrial fibrillation I48.91 CAD (coronary artery disease) I25.10 Diabetes E11.9 Pacemaker Z95.0 HTN (hypertension) I10 Major depressive disorder, recurrent severe without psychotic features F33.2
--- NOTE | 2022-03-15 11:20 | ECG_ITS ---
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 Interpretive Statements NAME OF STUDY: LEXISCAN SESTAMIBI STRESS TEST INDICATION: [Unstable Angina] Procedure: At the baseline, the blood pressure was 161/85 mmHg with a heart rate of 67 bpm. The electrocardiogram showed normal sinus rhythm, normal axis with normal ST and T's. The Lexiscan was infused over a period of 20 seconds. A total of 0.4 mg of Lexiscan was infused. The stress phase was continued for a total of 5 minutes. Heart rate was at the end of stress phase was 94 bpm and a blood pressure of 184/84 mmHg. The EKG at the peak infusion revealed since normal sinus rhythm with no significant ST-T wave changes. Sestamibi was injected 20 seconds after the Lexiscan infusion. Blood pressure at the end of recovery phase was 182/84mmHg with a heart rate of 78 bpm. Conclusion: 1. Normal EKG response to Lexiscan infusion 2. No Lexiscan induced chest pain or cardiac arrhythmia. 3. Normal blood pressure and heart rate response. 4. Sestamibi/sestamibi perfusion scan pending; see separate report. Electronically Signed On 03-30-2022 0:10:04 CDT by Jose Ugarte M.D. [id number]
[2022-03-15] MEDS: risperiDONE 2 mg Tablet PO (20:46)
[2022-03-15] MEDS: quetiapine 100 mg Tablet PO (20:47)
[2022-03-16] VITALS (8 sets, daily range): BP systolic 139–182; BP diastolic 76–100; PULSE 65–92; RESP 18; TEMP 36.6; O2SAT 95
[2022-03-16] MEDS: regadenoson 0.4 Mg/5 ml Syringe IVP (08:10)
[2022-03-16] MEDS: metoprolol succinate ER (24 HR) 25 mg Tablet PO ×2 (09:25→16:56)
[2022-03-16] MEDS: ferrous sulfate EC 325 mg Tablet PO ×2 (09:25→16:56)
[2022-03-16] MEDS: sertraline 50 mg Tablet PO (09:25)
[2022-03-16] MEDS: apixaban 5 mg Tablet PO ×2 (09:25→16:55)
[2022-03-16] MEDS: lisinopril 10 mg Tablet 20 MG PO (09:25)
[2022-03-16] MEDS: isosorbide mononitrate ER 30 mg Tablet PO (09:25)
[2022-03-16] MEDS: tamsulosin 0.4 mg Capsule PO (09:25)
[2022-03-16] MEDS: pantoprazole DR 40 mg Tablet PO (09:25)
[2022-03-16] MEDS: ranolazine (12HR) 500 mg Tablet PO ×2 (09:25→16:56)
--- NOTE | 2022-03-16 09:31 | PC.NURSE ---
Bedside report received from AFSHIN Whittington, this morning.
--- NOTE | 2022-03-16 11:20 | NMCV_ITS ---
NM jonas perf SPECT r/s* [id number] Jeremie Alexander Age: 61 Gender: M : 1960 Exam Date: 03/16/2022 06:52 Ordering Phys: Woody Inman MD Technologist: LILI Lima Exam Location: [facility] Indications: Unstable angina STRESS TEST Please see separate stress test report in [facility] for full findings IMAGE PROTOCOL Rest/Stress 1 Lexiscan Day Radiopharmaceutical Dose (mCi) Administration Site Administered by Rest: Tc-99m 60 IV LILI Lima Sestamibi Stress:Tc-99m 45 IV LILI Lima Sestamibi Rest: 16-Mar-2022 60 Discovery 630 Stress: 16-Mar-2022 45 Discovery 630 0.4mg Lexiscan. Supine position only as patient was unable to lay prone. SPECT RESULTS Technical Quality: Good Raw Data Analysis: Soft tissue attenuation Image Corrections: No attenuation or motion correction applied Summed Stress Score: 0 Summed Rest Score: 0 Summed Difference Score: 0 PERFUSION FINDINGS SPECT images demonstrate homogeneous tracer distribution throughout the myocardium. FUNCTIONAL RESULTS (calculated via Gated SPECT) Stress Image LV EF (%): 63 Stress EDV (mL):91 TID: 1.14 Stress ESV (mL):34 FUNCTIONAL FINDINGS: There is normal left ventricular systolic function. IMPRESSIONS 1. Normal myocardial perfusion imaging with no evidence of ischemia 2. LV systolic function is normal Jose Ugarte MD (Electronically Signed) Final Date: 16 March 2022 09:45 S
--- NOTE | 2022-03-16 12:28 | PM.DCS ---
Discharge Providers Date of Admission: 03/14/22 21:58 Date of Discharge: March 16, 2022 Attending Provider at Admission: Diana Roldan MD Attending Provider at Discharge: Woody Inman MD Primary Care Provider: Livia Ridley MD Diagnoses at Discharge Discharge Diagnosis (1) Chest pain: Status: Acute (2) Hypertensive urgency: Status: Acute (3) Atrial fibrillation: Status: Acute (4) CAD (coronary artery disease): Status: Acute (5) Diabetes: Status: Acute (6) Pacemaker: Status: Acute (7) HTN (hypertension): Status: Acute (8) Major depressive disorder, recurrent severe without psychotic features: Status: Acute Reason for Visit Reason for Visit: CP; syncope Hospital Course Hospital Course This patient is well-known to me, 61-year-old male with flat affect, was admitted in October this year with chief complaint of chest pain and left-sided numbness. Coronary angiogram was done which was unremarkable(Ostial LAD had moderate stenosis with some haziness, haziness was secondary to calcification IFR was nonischemic.). On previous admission he was complaining of left arm numbness. Stroke work-up was unremarkable. B12 above 300. Hemoglobin A1c 5.6. This time he presented with similar complaint of chest pain, left-sided with numbness of left arm. Cardiac stress test unremarkable. EKG, troponin unremarkable. Even on the day of discharge patient is complaining of numbness however on clinical exam he has good strength and able to sense crude touch. I do question his insight to his medical problems. There is no organic cause for his symptoms. I did refer him to behavioral health clinic to rule out anxiety depression/neuro conversion disorder. He has been a pretty flat affect, he needs a lot of motivation for activities of daily life. His chest pain is noncardiac, he is able to pinpoint the area above his nipple. Hemodynamically stable. Physical Exam Narrative: NIH 0 Flat affect Masked facies Poor insight Patient is able to pinpoint the area of chest pain, there is no numbness at all he has good sensations of upper and lower extremity Good strength of upper and lower extremities, he was examined before his discharge in front of his nurse Distended abdomen Lower extremity without edema Able to comprehend my questions Discharge Data Studies Completed and Pending Completed Studies During Hospitalization Category Date Time Status CT head wo con* [id number] Stat Cat Scan 03/14/22 14:40 Completed CTA chest [CT angio chest PE protcl [id number]] Stat Cat Scan 03/14/22 14:40 Completed Sestamibi Stress Test Request Routine Exams 03/15/22 11:20 Draft XR chest 1V portable [id number] Urgent Exams 03/14/22 12:47 Completed NM jonas perf SPECT r/s* [id number] Routine Nuc Med 03/16/22 11:20 Completed Radiology Impressions Chest X-Ray 03/14/22 12:47 IMPRESSION: 1. No acute findings. 2. The cardiac device left chest in good position Chest CTA 03/14/22 14:40 IMPRESSION: 1. No pulmonary embolus. 2. Poor opacification of the thoracic aorta, however no obvious dissection is identified. 3. Mild pericardial fluid and/or thickening. 4. Severe calcified coronary artery disease. 5. Mild bilateral pleural fluid collections. Head CT 03/14/22 14:40 IMPRESSION: No acute intracranial abnormality. Laboratory Results WBC 4.9 10^3/uL (4.0-10.0) 03/15/22 05:25 RBC 3.80 10^6/uL (4.1-5.3) L 03/15/22 05:25 Hgb 12.6 g/dL (11.7-16.6) 03/15/22 05:25 Hct 37.5 % (42.0-52.0) L 03/15/22 05:25 MCV 98.7 fl (80-94) H 03/15/22 05:25 MCH 33.2 pg (28.0-34.0) 03/15/22 05:25 MCHC 33.6 g/dL (30.0-36.0) 03/15/22 05:25 RDW 14.6 % (12.1-15.1) 03/15/22 05:25 Plt Count 164 10^3/cmm (130-400) 03/15/22 05:25 MPV 11.1 fL (7.4-10.4) H 03/15/22 05:25 Neut % (Auto) 52.0 % 03/15/22 05:25 Lymph % (Auto) 32.4 % 03/15/22 05:25 [place] % (Auto) 13.2 % 03/15/22 05:25 Eos % (Auto) 1.8 % 03/15/22 05:25 Baso % (Auto) 0.4 % 03/15/22 05:25 Neut # (Auto) 2.57 10^3/uL (1.8-7.7) 03/15/22 05:25 Lymph # (Auto) 1.6 10^3/uL (0.8-4.8) 03/15/22 05:25 [place] # (Auto) 0.7 10^3/uL (0.2-0.9) 03/15/22 05:25 Eos # (Auto) 0.1 10^3/uL (0.0-0.8) 03/15/22 05:25 Baso # (Auto) 0.0 10^3/uL (0.0-0.1) 03/15/22 05:25 Nucleated RBC % (auto) 0 % 03/15/22 05:25 Nucleated RBCs # 0.0 /100WBC 03/15/22 05:25 D-Dimer 0.62 ug/mIFEU (0-0.59) H 03/14/22 13:20 Sodium 143 mmol/L (136-145) 03/15/22 05:25 Potassium 3.7 mmol/L (3.5-5.1) 03/15/22 05:25 Chloride 107 mmol/L (98-107) 03/15/22 05:25 Carbon Dioxide 31 mmol/L (22-29) H 03/15/22 05:25 Anion Gap 8.7 (5-19) 03/15/22 05:25 BUN 7 mg/dL (8-23) L 03/15/22 05:25 Creatinine 0.9 mg/dL (0.7-1.2) 03/15/22 05:25 GFR Calculation 86.1 mL/min (90-130) L 03/15/22 05:25 Glucose 111 mg/dL (65-115) 03/15/22 05:25 Calculated Osmolality 295 mOsm/kg (285-295) 03/15/22 05:25 Calcium 8.7 mg/dL (8.5-10.5) 03/15/22 05:25 Magnesium 2.3 mg/dL (1.7-2.3) 03/15/22 05:25 Total Bilirubin 0.3 mg/dL (0.15-1.2) 03/15/22 05:25 AST 20 U/L (0-40) 03/15/22 05:25 ALT 20 U/L (0-41) 03/15/22 05:25 Alkaline Phosphatase 119 IU/L (40-130) 03/15/22 05:25 Troponin T Baseline 13 ng/L (0-15) 03/14/22 13:20 Troponin T 120 Minute 13.30 ng/L (0-15) 03/14/22 16:25 Delta Troponin T 0.30 ABS# (0-10) 03/14/22 16:25 Troponin T Hi Sens 6Hr 14.87 ng/L (0-15) 03/14/22 19:45 Troponin T Hi Sens 6Hr Delta 1.87 ng/L (0-12) 03/14/22 19:45 NT-Pro-B Natriuret Pep 408 pg/mL (0-125) H 03/14/22 17:09 Total Protein 5.4 g/dL (6.6-8.7) L 03/15/22 05:25 Albumin 3.3 g/dL (3.5-5.2) L 03/15/22 05:25 Globulin 2.1 g/dL (1.3-4.6) 03/15/22 05:25 Lipase 19 U/L (13-60) 03/14/22 13:20 Vitals Last Vital Signs Temp 97.9 F 03/16/22 11:22 Pulse 74 03/16/22 11:22 Resp 18 03/16/22 11:22 BP 139/76 03/16/22 11:22 Pulse Ox 95 03/16/22 11:22 O2 Del Method 03/15/22 15:54 Discharge Plan Discharge Patient Disposition: Home Condition: Stable Prescriptions: Continued tamsulosin 0.4 mg Capsule 0.4 mg PO DAILY ferrous sulfate 325 mg (65 mg iron) Tablet 325 mg PO BID ranolazine 500 mg Tablet Extended Release 12 Hr 500 mg PO BID Eliquis 5 mg Tablet 5 mg PO BID quetiapine 100 mg tablet 100 mg PO BEDTIME risperidone 2 mg tablet 2 mg PO BEDTIME nitroglycerin [Nitrostat] 0.4 mg Tablet, Sublingual 0.4 mg SUBLINGUAL Q5M PRN (Reason: Chest Pain) Rx Instructions: do not exceed 3 doses per episode epzywyciidbq-rdcerwet-xujjvz Tablet 1 tab PO DAILY lisinopril 10 mg tablet 20 mg PO DAILY metoprolol succinate 25 mg tablet extended release 24 hr 25 mg PO BID Lasix 40 mg Tablet 40 mg PO DAILY Remeron 30 mg Tablet 30 mg PO BEDTIME Zoloft 50 mg Tablet 50 mg PO DAILY testosterone cypionate 200 mg/mL Kit 200 mg SUBCUT Q14D Discontinued hydroxyzine pamoate 25 mg capsule 25 mg PO BID Discharge Orders: Discharge Order (Routine); Ordered 03/16/22 Ordered By: Woody Inman Referrals: [facility], [Staff Physician] - 1-3 days Day,MD Livia [Primary Care Provider] - 03/24/22 10:30 am [facility], [Staff Physician] - 4-7 days Discharge Diet: Cardiac Discharge Activity: Increase activity as tolerated Patient Instructions: Syncope, Chest Pain (ED), Hypertensive Crisis (GEN), Chest Pain Stoplight, Opioid Safety Discharge Attestations Time Spent in Discharge Care*: less than 30 min Status at Discharge: Cognitive status at discharge: cognitively intact, Behavioral status at discharge: cooperative, Quality Metrics Clinical Quality Measures [ No reported AMI, CVA or VTE this stay] Coding Level of Care Code Acute Chg FW DC note Diagnoses Chest pain R07.9 Hypertensive urgency I16.0 Atrial fibrillation I48.91 CAD (coronary artery disease) I25.10 Diabetes E11.9 Pacemaker Z95.0 HTN (hypertension) I10 Major depressive disorder, recurrent severe without psychotic features F33.2
--- NOTE | 2022-03-16 12:36 | PC.CHAP ---
wasvery happy and we had prayer also was anxious to go home we prayed Pastoral Care Encounter/Spiritual Assessment Type of Contact [] Declined mortgage loan originator visit [] Patient/Family/Request visit [] Outpatient visit [] Follow-up visit [] Physician referral [] Code/Alert [] Routine visit [] Staff referral [] Actively dying [] Patient sleeping [x] Family support [] [] Out of room [] Palliative care [] [] Receiving care in room [] Pre-surgical visit [] Trauma [] Long length of stay [] ICU visit [] Other: Relational/Emotional Strength [x] Patient feels connected with others/family/visitors/staff [] Distress []x Loneliness/isolation [x] Abandonment Spirituality of Patient [x] Person of Sherrie [x] Attends Restorationist of their Sherrie [x] Believes in Prayer [x] Reads Bible or Jehovah'S Witness materials [] There are Spiritual issues to be addressed 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 Interventions [x] Prayer [x] Active listening [] Non-anxious presence [] Spiritual/emotional support [] Crisis/trauma care [] Spiritual counseling [] Bereavement support [] Provided bereavement packet [] Provided Bible/devotional materials [] Provided toy/stuffed animal, coloring book to patient or family member [] Provided Communion [] Anointing/[place] [] Salvation [] Completed spiritual assessment [] Other: Impact on Illness or Injury [] Angry [] Fearful [x] Anxious [] Often cries [x] Exhaustion [x] Unable to work [x] Unable to attend gnosticism [] Unable to walk/stand [] Unable to read [x] Unable to drive [x] Unable Unable to sleep [] Unable to be with family [] Patient intubated [] Other: Summary has trouble sleeping sometimes Time spent with patient
[2022-03-16] MEDS: hyDRALAzine 20 mg/mL INJ 1 mL 10 MG IVP ×2 (15:49→16:55)
== END 2022-03-16 18:00 | disposition home or self-care (01) ==
LOC: ER 20:43 → MEDSURG 22:45
PROVIDERS: Physician Assistant; Admitting Provider Internal Medicine; Emergency Provider Emergency Medicine; PCP Emergency Medicine; Visit Provider Internal Medicine
DX: R07.9 Chest pain, unspecified (principal); I16.0 Hypertensive urgency; I48.91 Unspecified atrial fibrillation; I25.10 Atherosclerotic heart disease of native coronary artery without angina pectoris; E11.9 Type 2 diabetes mellitus without complications; Z95.0 Presence of cardiac pacemaker; I10 Essential (primary) hypertension; F33.2 Major depressive disorder, recurrent severe without psychotic features; Z79.01 Long term (current) use of anticoagulants
CPT/HCPCS: 36415; 70450; 71045; 71275; 78452; 80053; 83690; 83735; 83880; 84484; 85025; 85378; 93005; 93017; 96374; 96375; 96376; 99285; A9500; G0378; J0360; J1940; J2270; J2785; J3490; Q9967

== ENCOUNTER → 2022-03-19 13:23 | Outpatient (BNVA) | payer MEDICARE, MEDICAID, SELFPAY | PROVIDERS: PCP Emergency Medicine; Visit Provider Nurse Practitioner Family | DX: I10 Essential (primary) hypertension (principal); Z95.0 Presence of cardiac pacemaker | CPT/HCPCS: 99213; 99214 ==

== ENCOUNTER 2022-03-22 17:51 | Inpatient (IN) | payer MEDICARE, MEDICAID, SELFPAY ==
[2022-03-22] VITALS (11 sets, daily range): BP systolic 111–157; BP diastolic 54–89; PULSE 64–80; RESP 14–24; TEMP 36.6; O2SAT 16–96; BMI 44.2; BMI 42.2
--- NOTE | 2022-03-22 18:02 | ECG_ITS ---
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 Measurements Intervals Russell Rate: 66 P: 267 MI: 196 QRS: 2 QRSD: 110 T: 21 QT: 425 QTc: 447 Interpretive Statements ELECTRONIC ATRIAL PACEMAKER LOW QRS VOLTAGE IN PRECORDIAL LEADS [QRS DEFLECTION < 1.0 mV IN CHEST LEADS] Compared to ECG 03/15/2022 03:22:30 T-wave abnormality no longer present Electronically Signed On 03-23-2022 17:38:15 CDT by Jose Ugarte M.D. [id number]
--- NOTE | 2022-03-22 18:12 | CTR_ITS ---
PROCEDURE INFORMATION: Exam: CT Head Without Contrast Exam date and time: 03/22/2022 6:23 PM Age: 61 years old Clinical indication: Stroke-like symptoms; Other: RT sided numbness; Additional info: Symptoms of acute stroke TECHNIQUE: Imaging protocol: Computed tomography of the head without contrast. Radiation optimization: All CT scans at this facility use at least one of these dose optimization techniques: automated exposure control; mA and/or kV adjustment per patient size (includes targeted exams where dose is matched to clinical indication); or iterative reconstruction. Other technique: STROKE PROTOCOL was implemented. COMPARISON: CT head wo con* [id number] 03/14/2022 3:54 PM RADIATION DOSE METRICS: Total DLP (mGy-cm): 1158.48 FINDINGS: Brain: Mild atrophy and mild white matter chronic microvascular changes are noted. No hemorrhage or evidence of acute infarction. Cerebral ventricles: No ventriculomegaly. Paranasal sinuses: Visualized sinuses are unremarkable. No fluid levels. Mastoid air cells: Visualized mastoid air cells are well aerated. Bones/joints: Unremarkable. No acute fracture. Soft tissues: Unremarkable. CT/CT head wo con* [id number] IMPRESSION: No acute intracranial abnormality. ASSESSMENT: ASPECTS ([place] Stroke Program Early CT Score) is 10.
--- NOTE | 2022-03-22 18:12 | CTR_ITS ---
PROCEDURE INFORMATION: Exam: CTA Chest Without And With Contrast CTA Abdomen and Pelvis With Contrast Exam date and time: 03/22/2022 6:29 PM Age: 61 years old Clinical indication: Other: Chest pain, R sided numbness , possible dissection; Prior surgery; Surgery type: Stents TECHNIQUE: Imaging protocol: Computed tomographic angiography of the chest without and with contrast. Computed tomographic angiography of the abdomen and pelvis with contrast. 3D rendering (Not supervised by radiologist): MIP and/or 3D reconstructed images were created by the technologist. Radiation optimization: All CT scans at this facility use at least one of these dose optimization techniques: automated exposure control; mA and/or kV adjustment per patient size (includes targeted exams where dose is matched to clinical indication); or iterative reconstruction. Contrast material: OMNI 350; Contrast volume: 95 ml; Contrast route: INTRAVENOUS (IV); COMPARISON: 07/03/2021 CT scan of the abdomen and pelvis, and 03/14/2022 CT angiogram of the chest. RADIATION DOSE METRICS: Total DLP (mGy-cm): 1548.78 FINDINGS: Tubes, catheters and devices: The AICD and its leads appear stable in position. 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 Pulmonary arteries: Unremarkable. Aorta: The thoracic aorta appears normal. Mild atherosclerotic calcific changes are seen in the infrarenal abdominal aorta. No aneurysm or dissection is seen in the thoracic or abdominal aorta. Celiac trunk and mesenteric arteries: No occlusion or significant stenosis. Renal arteries: No occlusion or significant stenosis. Right iliac arteries: Mild calcified plaque deposition. No dissection or aneurysm. Left iliac arteries: Mild calcified plaque deposition. No dissection or aneurysm. CHEST: Lungs: A calcified granuloma is present in the right lower lobe adjacent to the fissure. An 8 mm noncalcified nodular density is seen in the right lower lobe adjacent to the calcified granuloma, which may be an area of scarring. Bibasilar subsegmental atelectasis is also appreciated. Pleural spaces: Small bilateral pleural effusions are noted. No pneumothorax is seen. Heart: The heart is normal in size. Coronary artery calcifications are appreciated. Diaphragm: A small hiatal hernia is present. ABDOMEN AND PELVIS: Liver: No mass. Gallbladder and bile ducts: The gallbladder has been removed. No biliary ductal dilatation. Pancreas: Unremarkable. No mass. No ductal dilation. Spleen: Unremarkable. No splenomegaly. Adrenal glands: Unremarkable. No mass. Kidneys and ureters: A small 10 mm exophytic hypodense lesion is again seen in the left kidney that is too small to accurately characterize, but is likely a small cyst. The kidneys appear normal. No hydronephrosis. Stomach and bowel: Surgical changes of gastric bypass are appreciated. No intestinal obstruction. Appendix: No evidence of appendicitis. Intraperitoneal space: Unremarkable. No free air. No significant fluid collection. Urinary bladder: Unremarkable. No mass. Reproductive: Unremarkable as visualized. Lymph nodes: Calcified right hilar lymph nodes are noted. No lymphadenopathy is seen. Bones/joints: Chronic T12 compression deformity and several old bilateral rib fractures are noted. No acute fracture is detected. Bilateral hip arthroplasties are noted. Soft tissues: A small 16 mm right paravertebral lesion is again seen at the T1-T2 level (image 10 for reference), which is nonspecific. Prior surgical changes of hernia repair are seen in the anterior abdominal wall. Bilateral indirect inguinal hernias containing fat are present. CT/CT angio chest abdomen pelvis IMPRESSION: 1. Normal thoracic and abdominal aorta. No dissection or aneurysm. 2. Coronary artery disease. 3. Small bilateral pleural effusions and bibasilar atelectasis. Small noncalcified 8 mm nodular density adjacent to a calcified granuloma in the right lower lobe may be an area of scarring. 4. Indeterminate T1-T2 right paravertebral nodular lesion. A benign neurogenic tumor is a consideration. Nonemergent thoracic spine MRI with contrast may allow further assessment. 5. Small hiatal hernia.
[2022-03-22 18:17] LABS: Glucose Point of Care 90 mg/dL (70-110)
--- NOTE | 2022-03-22 18:17 | CTR_ITS ---
PROCEDURE INFORMATION: Exam: CTA Head With Contrast, Arteriography Exam date and time: 03/22/2022 6:42 PM Age: 61 years old Clinical indication: Stroke-like symptoms; Other: R side paralysis TECHNIQUE: Imaging protocol: Computed tomographic angiography of the head with contrast. Exam focused on the arteries. 3D rendering (Not supervised by radiologist): MIP and/or 3D reconstructed images were created by the technologist. Radiation optimization: All CT scans at this facility use at least one of these dose optimization techniques: automated exposure control; mA and/or kV adjustment per patient size (includes targeted exams where dose is matched to clinical indication); or iterative reconstruction. Contrast material: OMNI 350; Contrast volume: 95 ml; Contrast route: INTRAVENOUS (IV); COMPARISON: CT angio headneck* [id number] 10/27/2021 6:23 PM RADIATION DOSE METRICS: Total DLP (mGy-cm): 534.73 FINDINGS: ANTERIOR CIRCULATION: Right internal carotid artery: Unremarkable. Intracranial segment is patent with no significant stenosis. No aneurysm. Right middle cerebral artery: Unremarkable. No occlusion or significant stenosis. No aneurysm. Right anterior cerebral artery: Unremarkable. No occlusion or significant stenosis. No aneurysm. Left internal carotid artery: Unremarkable. Intracranial segment is patent with no significant stenosis. No aneurysm. Left middle cerebral artery: Unremarkable. No occlusion or significant stenosis. No aneurysm. Left anterior cerebral artery: Unremarkable. No occlusion or significant stenosis. No aneurysm. POSTERIOR CIRCULATION: Right vertebral artery: Unremarkable. No occlusion or significant stenosis. No aneurysm. Left vertebral artery: Unremarkable. No occlusion or significant stenosis. No aneurysm. Basilar artery: Unremarkable. No occlusion or significant stenosis. No aneurysm. Right posterior cerebral artery: Unremarkable. No occlusion or significant stenosis. No aneurysm. Left posterior cerebral artery: Unremarkable. No occlusion or significant stenosis. No aneurysm. IMPRESSION: Patent intracranial arteries. PROCEDURE INFORMATION: Exam: CTA Neck With Contrast Exam date and time: 03/22/2022 6:42 PM Age: 61 years old Clinical indication: Stroke-like symptoms; Other: R side paralysis TECHNIQUE: Imaging protocol: Computed tomographic angiography of the neck with contrast. 3D rendering (Not supervised by radiologist): MIP and/or 3D reconstructed images were created by the technologist. Radiation optimization: All CT scans at this facility use at least one of these dose optimization techniques: automated exposure control; mA and/or kV adjustment per patient size (includes targeted exams where dose is matched to clinical indication); or iterative reconstruction. Contrast material: OMNI 350; Contrast volume: 95 ml; Contrast route: INTRAVENOUS (IV); COMPARISON: CT angio headneck* [id number] 10/27/2021 6:23 PM RADIATION DOSE METRICS: Total DLP (mGy-cm): 534.73 FINDINGS: Right common carotid artery: No stenosis. No dissection or occlusion. Right internal carotid artery: No stenosis of the extracranial segment. No dissection or occlusion. Right external carotid artery: No occlusion or stenosis of the origin. Left common carotid artery: No stenosis. No dissection or occlusion. Left internal carotid artery: No stenosis of the extracranial segment. No dissection or occlusion. Left external carotid artery: No occlusion or stenosis of the origin. Right vertebral artery: No stenosis. No dissection or occlusion. Left vertebral artery: No stenosis. No dissection or occlusion. Right subclavian artery: An aberrant right subclavian artery is again noted. Soft tissues: Normal. No significant soft tissue swelling. Bones/joints: No acute fracture. CT/CT angio headneck* [id number] IMPRESSION: Patent neck carotid and vertebral arteries. REFERENCES: NASCET CRITERIA. The degree of internal carotid artery stenosis is based on NASCET criteria. Normal is no stenosis. Mild is less than 50% stenosis. Moderate is 50-69% stenosis. Severe is 70% to 99% stenosis. Total occlusion is no detectable patent lumen.
--- NOTE | 2022-03-22 18:27 | ED_ITS ---
HPI - General Adult General: Chief complaint: Chest Pain Stated complaint: CHEST PAIN Time Seen by Provider: 03/22/22 17:56 History of Present Illness: Patient is a 61-year-old male with a history of atrial fibrillation on Eliquis (last use was AM), diabetes, hypertension, prior stroke with residual right-sided numbness presenting to the emergency room with concerns acute onset of chest pain and right-sided weakness. Patient tells me that this all happened about an hour ago while he was sitting down and slowly noticed right-sided weakness. Patient developed sharp ripping chest pain first followed by weakness on the right side. Patient denies any pressure-like chest pain. No prior history of aneurysm. Patient does an hour ago, patient has not been able to move the right side. Patient denies any fever/chills, cough, runny nose sore throat, abdominal complaints of nausea/vomiting and diarrhea melena/hematochezia. Onset:1 hr ago Duration:1 hr Location:home Severity:severe Associated symptoms: Reports chest pain; Deny dyspnea, nausea, rash, palpitations or vomiting Review of Systems Const: Denies: fever(s) or chills Eyes: Denies: change in vision ENMT: Denies: mouth pain Card: Reports: chest pain; Denies: palpitations Resp: Denies: dyspnea or non-productive cough GI: Denies: abdominal pain, nausea, vomiting or diarrhea : Denies: dysuria Musc: Denies: extremity pain Skin/Breast: Denies: rash or new lesions Neuro: Reports: weakness in extremities (+R sided weakness) Psych: Reports: other (Normal mood) Phu/Lymph: Denies: easy bruising [facility] ED PFSH: Medical History Afib Atrial fibrillation Back pain CAD (coronary artery disease) Chest pain Chest pain Chronic anticoagulation Diabetes Flu-like symptoms History of posttraumatic stress disorder (PTSD) HTN (hypertension) Hypertensive urgency Major depressive disorder, recurrent severe without psychotic features Pacemaker Pneumonia SSS (sick sinus syndrome) Syncope Tachycardia Transaminitis Surgical History Gastric banding status S/P placement of cardiac pacemaker Status post cholecystectomy Family History Father CAD (coronary artery disease) Mother Cancer Social History Smoking and tobacco status: never smoked Alcohol intake: never Household members: spouse Housing: House Physical Exam Const: COMMON NORMALS: alert HENMT: COMMON NORMALS: atraumatic HEAD & SCALP: atraumatic MOUTH: moist mucous membranes not abnormal Eye: COMMON NORMALS: EOMs intact bilaterally and conjunctivae normal CONJUNCTIVA: Yes conjunctivae normal Neck/C-Spine: COMMON NORMALS: full ROM and supple Resp: COMMON NORMALS: normal respiratory effort and clear to auscultation bilaterally AUSCULTATION: clear to auscultation bilaterally Cardio: COMMON NORMALS: regular rate RATE: regular rate OTHER: 2+ radial pulses b/l GI: COMMON NORMALS: Soft to palpation and non-tender PALPATION: Yes Soft to palpation OTHER: .pe Extremity: NARRATIVE EXTREMITY EXAM: + No range motion on the right side Neuro: SENSORIUM/ORIENTATION: Yes alert OTHER: NEURO: NIHSS: 14 1. Level of Consciousness A) LOC Responsiveness 0 B) LOC Questions 0 C) LOC Commands 1 2. Horizontal Eye Movement 0 3. Visual field test 0 4. Facial Palsy 3 5. Motor Arm 4 6. Motor Leg 4 7. Limb Ataxia 0 8. Sensation 2 9. Language 0 10. Speech 0 11. Extinction and Inattention 0 Psych: COMMON NORMALS: speech normal SPEECH: Yes normal speech MOOD & AFFECT: Yes euthymic mood Course Vital Signs: Vital signs: Vital Signs Temperature 97.8 F 03/22/22 18:20 Pulse Rate 80 03/22/22 18:20 Respiratory Rate 14 03/22/22 18:20 Blood Pressure 157/88 03/22/22 18:20 Pulse Oximetry 95 03/22/22 18:20 Oxygen Delivery Me thod 03/22/22 18:20 MDM - General Adult Medical Decision Making Patient is a 61-year-old male with a history of atrial fibrillation on Eliquis (last use was AM), diabetes, hypertension, prior stroke with residual right- sided numbness presenting to the emergency room with concerns acute onset of chest pain and right-sided weakness. On physical exam, patient NIH stroke scale 14. Patient is within the window for tPA. Stroke alert was called at 6:12 PM. Given the fact the patient last use Eliquis was earlier today, discussed case with Dr. Rios from [facility] telestroke at 6:30pm. Dr. Rios reviewed the images and assessed patient via telestroke. Dr. Rios does not recommend tPA at this time. CTA chest did not show any signs of dissection. CTA head and neck showed no large vessel occlusion. Discussed case Dr. Rios who thinks that today symptoms likely due to ischemic small vessel disease. Patient admitted to hospital for stroke work-up. Troponin x1 within normal limit. EKG nonischemic. Incidental findings of neurogenic spine lesion discussed extensively with patient. Patient received a copy of the CT report with the documented findings. Patient is instructed to follow up urgently with specialists. Disposition: admisison Lab Data : 03/22/22 18:18 03/22/22 18:18 Radiology Impressions Chest/Abdomen/Pelvis CTA 03/22/22 18:12 IMPRESSION: 1. Normal thoracic and abdominal aorta. No dissection or aneurysm. 2. Coronary artery disease. 3. Small bilateral pleural effusions and bibasilar atelectasis. Small noncalcified 8 mm nodular density adjacent to a calcified granuloma in the right lower lobe may be an area of scarring. 4. Indeterminate T1-T2 right paravertebral nodular lesion. A benign neurogenic tumor is a consideration. Nonemergent thoracic spine MRI with contrast may allow further assessment. 5. Small hiatal hernia. Head CT 03/22/22 18:12 IMPRESSION: No acute intracranial abnormality. ASSESSMENT: ASPECTS ([place] Stroke Program Early CT Score) is 10. Head/Neck CTA 03/22/22 18:17 IMPRESSION: Patent neck carotid and vertebral arteries. REFERENCES: NASCET CRITERIA. The degree of internal carotid artery stenosis is based on NASCET criteria. Normal is no stenosis. Mild is less than 50% stenosis. Moderate is 50-69% stenosis. Severe is 70% to 99% stenosis. Total occlusion is no detectable patent lumen. Laboratory Results WBC 5.8 10^3/uL (4.0-10.0) 03/22/22 18:18 RBC 4.54 10^6/uL (4.1-5.3) 03/22/22 18:18 Hgb 14.9 g/dL (11.7-16.6) 03/22/22 18:18 Hct 45.9 % (42.0-52.0) 03/22/22 18:18 MCV 101.1 fl (80-94) H 03/22/22 18:18 MCH 32.8 pg (28.0-34.0) 03/22/22 18:18 MCHC 32.5 g/dL (30.0-36.0) 03/22/22 18:18 RDW 13.8 % (12.1-15.1) 03/22/22 18:18 Plt Count 213 10^3/cmm (130-400) 03/22/22 18:18 MPV 10.9 fL (7.4-10.4) H 03/22/22 18:18 Neut % (Auto) 63.2 % 03/22/22 18:18 Lymph % (Auto) 23.8 % 03/22/22 18:18 [place] % (Auto) 10.8 % 03/22/22 18:18 Eos % (Auto) 1.6 % 03/22/22 18:18 Baso % (Auto) 0.3 % 03/22/22 18:18 Neut # (Auto) 3.64 10^3/uL (1.8-7.7) 03/22/22 18:18 Lymph # (Auto) 1.4 10^3/uL (0.8-4.8) 03/22/22 18:18 [place] # (Auto) 0.6 10^3/uL (0.2-0.9) 03/22/22 18:18 Eos # (Auto) 0.1 10^3/uL (0.0-0.8) 03/22/22 18:18 Baso # (Auto) 0.0 10^3/uL (0.0-0.1) 03/22/22 18:18 Nucleated RBC % (auto) 0 % 03/22/22 18:18 Nucleated RBCs # 0.0 /100WBC 03/22/22 18:18 Sodium 140 mmol/L (136-145) 03/22/22 18:18 Potassium 4.5 mmol/L (3.5-5.1) 03/22/22 18:18 Chloride 101 mmol/L (98-107) 03/22/22 18:18 Carbon Dioxide 28 mmol/L (22-29) 03/22/22 18:18 Anion Gap 15.5 (5-19) 03/22/22 18:18 BUN 10 mg/dL (8-23) 03/22/22 18:18 Creatinine 0.9 mg/dL (0.7-1.2) 03/22/22 18:18 GFR Calculation 86.1 mL/min (90-130) L 03/22/22 18:18 Glucose 85 mg/dL (65-115) 03/22/22 18:18 POC Glucose 90 mg/dL (70-110) 03/22/22 18:15 Calculated Osmolality 288 mOsm/kg (285-295) 03/22/22 18:18 Calcium 9.1 mg/dL (8.5-10.5) 03/22/22 18:18 Total Bilirubin 0.4 mg/dL (0.15-1.2) 03/22/22 18:18 AST 23 U/L (0-40) 03/22/22 18:18 ALT 21 U/L (0-41) 03/22/22 18:18 Alkaline Phosphatase 131 IU/L (40-130) H 03/22/22 18:18 Troponin T Baseline 15 ng/L (0-15) 03/22/22 18:18 Total Protein 6.7 g/dL (6.6-8.7) 03/22/22 18:18 Albumin 3.8 g/dL (3.5-5.2) 03/22/22 18:18 Globulin 2.9 g/dL (1.3-4.6) 03/22/22 18:18 Imaging Data Other Imaging: Radiologist's impression: [address] [address] [address] Scan Report Signed Patient: Jeremie Alexander Unit #: [id number] : 1960 Age/Sex: 61 / M ADM Date: 03/22/22 Loc: ER Room/Bed: Attending Dr: Ordering Provider/Ordering MD: Josh Mendez MD Date of Service: 03/22/22 Procedure(s): CT head wo con* [id number] Accession Number(s): [id number] Report Number: [id number] PROCEDURE INFORMATION: Exam: CT Head Without Contrast Exam date and time: 03/22/2022 6:23 PM Age: 61 years old Clinical indication: Stroke-like symptoms; Other: RT sided numbness; Additional info: Symptoms of acute stroke TECHNIQUE: Imaging protocol: Computed tomography of the head without contrast. Radiation optimization: All CT scans at this facility use at least one of these dose optimization techniques: automated exposure control; mA and/or kV adjustment per patient size (includes targeted exams where dose is matched to clinical indication); or iterative reconstruction. Other technique: STROKE PROTOCOL was implemented. COMPARISON: CT head wo con* [id number] 03/14/2022 3:54 PM RADIATION DOSE METRICS: Total DLP (mGy-cm): 1158.48 FINDINGS: Brain: Mild atrophy and mild white matter chronic microvascular changes are noted. No hemorrhage or evidence of acute infarction. Cerebral ventricles: No ventriculomegaly. Paranasal sinuses: Visualized sinuses are unremarkable. No fluid levels. Mastoid air cells: Visualized mastoid air cells are well aerated. Bones/joints: Unremarkable. No acute fracture. Soft tissues: Unremarkable. CT/CT head wo con* [id number] IMPRESSION:? No acute intracranial abnormality. ? ASSESSMENT: ASPECTS ([place] Stroke Program Early CT Score) is 10. ? Dictated By: Andre Kendrick MD Signed By: Andre Kendrick MD Signed Date/Time: 03/22/22 1834 DD/ 1823 [place] [address] CT Scan Report Signed Patient: Jeremie Alexander Unit #: [id number] : 1960 Age/Sex: 61 / M ADM Date: 03/22/22 Loc: ER Room/Bed: Attending Dr: Ordering Provider/Ordering MD: Josh Mendez MD Date of Service: 03/22/22 Procedure(s): CT angio headneck* [id number] Accession Number(s): [id number] Report Number: [id number] PROCEDURE INFORMATION: Exam: CTA Head With Contrast, Arteriography Exam date and time: 03/22/2022 6:42 PM Age: 61 years old Clinical indication: Stroke-like symptoms; Other: R side paralysis TECHNIQUE: Imaging protocol: Computed tomographic angiography of the head with contrast. Exam focused on the arteries. 3D rendering (Not supervised by radiologist): MIP and/or 3D reconstructed images were created by the technologist. Radiation optimization: All CT scans at this facility use at least one of these dose optimization techniques: automated exposure control; mA and/or kV adjustment per patient size (includes targeted exams where dose is matched to clinical indication); or iterative reconstruction. Contrast material: OMNI 350; Contrast volume: 95 ml; Contrast route: INTRAVENOUS (IV);? COMPARISON: CT angio headneck* [id number] 10/27/2021 6:23 PM RADIATION DOSE METRICS: Total DLP (mGy-cm): 534.73 FINDINGS: ANTERIOR CIRCULATION: Right internal carotid artery: Unremarkable. Intracranial segment is patent with no significant stenosis. No aneurysm. Right middle cerebral artery: Unremarkable. No occlusion or significant stenosis. No aneurysm.? Right anterior cerebral artery: Unremarkable. No occlusion or significant stenosis. No aneurysm.? Left internal carotid artery: Unremarkable. Intracranial segment is patent with no significant stenosis. No aneurysm. Left middle cerebral artery: Unremarkable. No occlusion or significant stenosis. No aneurysm.? Left anterior cerebral artery: Unremarkable. No occlusion or significant stenosis. No aneurysm.? POSTERIOR CIRCULATION: Right vertebral artery: Unremarkable. No occlusion or significant stenosis. No aneurysm.? Left vertebral artery: Unremarkable. No occlusion or significant stenosis. No aneurysm.? Basilar artery: Unremarkable. No occlusion or significant stenosis. No aneurysm. Right posterior cerebral artery: Unremarkable. No occlusion or significant stenosis. No aneurysm.? Left posterior cerebral artery: Unremarkable. No occlusion or significant stenosis. No aneurysm.? IMPRESSION:? Patent intracranial arteries. PROCEDURE INFORMATION: Exam: CTA Neck With Contrast Exam date and time: 03/22/2022 6:42 PM Age: 61 years old Clinical indication: Stroke-like symptoms; Other: R side paralysis TECHNIQUE: Imaging protocol: Computed tomographic angiography of the neck with contrast. 3D rendering (Not supervised by radiologist): MIP and/or 3D reconstructed images were created by the technologist. Radiation optimization: All CT scans at this facility use at least one of these dose optimization techniques: automated exposure control; mA and/or kV adjustment per patient size (includes targeted exams where dose is matched to clinical indication); or iterative reconstruction. Contrast material: OMNI 350; Contrast volume: 95 ml; Contrast route: INTRAVENOUS (IV);? COMPARISON: CT angio headneck* [id number] 10/27/2021 6:23 PM RADIATION DOSE METRICS: Total DLP (mGy-cm): 534.73 FINDINGS: Right common carotid artery: No stenosis. No dissection or occlusion. Right internal carotid artery: No stenosis of the extracranial segment. No dissection or occlusion. Right external carotid artery: No occlusion or stenosis of the origin.? Left common carotid artery: No stenosis. No dissection or occlusion. Left internal carotid artery: No stenosis of the extracranial segment. No dissection or occlusion. Left external carotid artery: No occlusion or stenosis of the origin.? Right vertebral artery: No stenosis. No dissection or occlusion. Left vertebral artery: No stenosis. No dissection or occlusion. Right subclavian artery: An aberrant right subclavian artery is again noted. Soft tissues: Normal. No significant soft tissue swelling. Bones/joints: No acute fracture. CT/CT angio headne* [id number] IMPRESSION: Patent neck carotid and vertebral arteries. ? REFERENCES: NASCET CRITERIA. The degree of internal carotid artery stenosis is based on NASCET criteria. Normal is no stenosis. Mild is less than 50% stenosis. Moderate is 50-69% stenosis. Severe is 70% to 99% stenosis. Total occlusion is no detectable patent lumen. ? Dictated By: Andre Kendrick MD Signed By: Andre Kendrick MD Signed Date/Time: 03/22/221913 DD/ 41 Close Head/Neck CTA (Signed) Andre Kendrick - 03/22/[address] (Signed) Andre Kendrick - 03/22/22 Chest/Abdomen/Pelvis CTA (Signed) Andre Kendrick - 03/22/22 Launch?[facility] [address] [place] [address] CT Scan Report Signed Patient: Jeremie Alexander Unit #: [id number] : 1960 Age/Sex: 61 / M ADM Date: 03/22/22 Loc: ER Room/Bed: Attending Dr: Ordering Provider/Ordering MD: Josh Mendez MD Date of Service: 03/22/22 Procedure(s): CT angio chest abdomen pelvis Accession Number(s): [id number] Report Number: [id number] PROCEDURE INFORMATION: Exam: CTA Chest Without And With Contrast CTA Abdomen and Pelvis With Contrast Exam date and time: 03/22/2022 6:29 PM Age: 61 years old Clinical indication: Other: Chest pain, R sided numbness , possible dissection; Prior surgery; Surgery type: Stents TECHNIQUE: Imaging protocol: Computed tomographic angiography of the chest without and with contrast. Computed tomographic angiography of the abdomen and pelvis with contrast. 3D rendering (Not supervised by radiologist): MIP and/or 3D reconstructed images were created by the technologist. Radiation optimization: All CT scans at this facility use at least one of these dose optimization techniques: automated exposure control; mA and/or kV adjustment per patient size (includes targeted exams where dose is matched to clinical indication); or iterative reconstruction. Contrast material: OMNI 350; Contrast volume: 95 ml; Contrast route: INTRAVENOUS (IV);? COMPARISON: 07/03/2021 CT scan of the abdomen and pelvis, and 03/14/2022 CT angiogram of the chest. RADIATION DOSE METRICS: Total DLP (mGy-cm): 1548.78 FINDINGS: Tubes, catheters and devices: The AICD and its leads appear stable in position. 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 Pulmonary arteries:? Unremarkable. Aorta:? The thoracic aorta appears normal.? Mild atherosclerotic calcific changes are seen in the infrarenal abdominal aorta. No aneurysm or dissection is seen in the thoracic or abdominal aorta. Celiac trunk and mesenteric arteries: No occlusion or significant stenosis. Renal arteries: No occlusion or significant stenosis. Right iliac arteries:? Mild calcified plaque deposition. No dissection or aneurysm. Left iliac arteries:? Mild calcified plaque deposition.? No dissection or aneurysm. CHEST: Lungs: A calcified granuloma is present in the right lower lobe adjacent to the fissure. An 8 mm noncalcified nodular density is seen in the right lower lobe adjacent to the calcified granuloma, which may be an area of scarring. Bibasilar subsegmental atelectasis is also appreciated. Pleural spaces: Small bilateral pleural effusions are noted. No pneumothorax is seen. Heart: The heart is normal in size. Coronary artery calcifications are appreciated. Diaphragm: A small hiatal hernia is present. ABDOMEN AND PELVIS: Liver: No mass. Gallbladder and bile ducts: The gallbladder has been removed. No biliary ductal dilatation. Pancreas: Unremarkable. No mass. No ductal dilation. Spleen: Unremarkable. No splenomegaly. Adrenal glands: Unremarkable. No mass. Kidneys and ureters: A small 10 mm exophytic hypodense lesion is again seen in the left kidney that is too small to accurately characterize, but is likely a small cyst. The kidneys appear normal. No hydronephrosis. Stomach and bowel: Surgical changes of gastric bypass are appreciated. No intestinal obstruction. Appendix: No evidence of appendicitis. Intraperitoneal space: Unremarkable. No free air. No significant fluid collection. Urinary bladder: Unremarkable. No mass. Reproductive: Unremarkable as visualized. Lymph nodes: Calcified right hilar lymph nodes are noted. No lymphadenopathy is seen. Bones/joints: Chronic T12 compression deformity and several old bilateral rib fractures are noted. No acute fracture is detected. Bilateral hip arthroplasties are noted. Soft tissues: A small 16 mm right paravertebral lesion is again seen at the T1-T2 level (image 10 for reference), which is nonspecific. Prior surgical changes of hernia repair are seen in the anterior abdominal wall. Bilateral indirect inguinal hernias containing fat are present. CT/CT angio chest abdomen pelvis IMPRESSION: 1. Normal thoracic and abdominal aorta. No dissection or aneurysm. 2. Coronary artery disease. 3. Small bilateral pleural effusions and bibasilar atelectasis. Small noncalcified 8 mm nodular density adjacent to a calcified granuloma in the right lower lobe may be an area of scarring. 4. Indeterminate T1-T2 right paravertebral nodular lesion. A benign neurogenic tumor is a consideration. Nonemergent thoracic spine MRI with contrast may allow further assessment. 5. Small hiatal hernia. ? ? Dictated By: Andre Kendrick MD Signed By: Andre Kendrick MD Signed Date/Time: 03/22/221928 DD/ 28 Discharge Plan Discharge Patient Disposition: Admitted As Inpatient Clinical Impression: Acute ischemic stroke, Chest pain Condition: Stable Coding Level of Care Code ED Concaving Machine Operator for Chg Fwd Exam Comprehensive
[2022-03-22 18:31] LABS: Basophils % 0.3 %; Eosinophils # 0.1 10^3/uL (0.0-0.8); Eosinophils % 1.6 %; Hematocrit 45.9 % (42.0-52.0); Hemoglobin 14.9 g/dL (11.7-16.6); Lymphocytes # 1.4 10^3/uL (0.8-4.8); Lymphocytes % 23.8 %; Mean Corpuscular HGB Conc 32.5 g/dL (30.0-36.0); Mean Corpuscular Hemoglobin 32.8 pg (28.0-34.0); Mean Corpuscular Volume 101.1 fl (80-94); Mean Platelet Volume 10.9 fL (7.4-10.4); Monocytes # 0.6 10^3/uL (0.2-0.9); Monocytes % 10.8 %; Neutrophils # 3.64 10^3/uL (1.8-7.7); Neutrophils % 63.2 %; Nucleated Red Blood Cells % 0 %; Platelet Count 213 10^3/cmm (130-400); Red Blood Count 4.54 10^6/uL (4.1-5.3); Red Cell Distribution Width 13.8 % (12.1-15.1); White Blood Count 5.8 10^3/uL (4.0-10.0)
[2022-03-22] MEDS: iohexol 350 mg/mL 100 mL Btl IV ×2 (18:46→18:47)
[2022-03-22 18:51] LABS: Alanine Aminotransferase 21 U/L (0-41); Albumin Level 3.8 g/dL (3.5-5.2); Alkaline Phosphatase 131 IU/L (40-130); Anion Gap 15.5 (5-19); Aspartate Amino Transferase 23 U/L (0-40); Blood Urea Nitrogen 10 mg/dL (8-23); Calcium 9.1 mg/dL (8.5-10.5); Carbon Dioxide 28 mmol/L (22-29); Chloride 101 mmol/L (98-107); Globulin 2.9 g/dL (1.3-4.6); Glomerular Filtration Rate 86.1 mL/min (90-130); Glucose 85 mg/dL (65-115); Osmolality Calculated 288 mOsm/kg (285-295); Potassium 4.5 mmol/L (3.5-5.1); Sodium 140 mmol/L (136-145); Total Bilirubin 0.4 mg/dL (0.15-1.2); Total Protein 6.7 g/dL (6.6-8.7)
[2022-03-22 18:52] LABS: Troponin(5th) Baseline 15 ng/L (0-15)
--- NOTE | 2022-03-22 19:05 | PC.NURSE ---
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 takes xarelto daily, hx of tia and strokes with residual right sided effects. awaiting ct results and decision from neuro consult.
[2022-03-22 19:33] LABS: INR 0.96 (0.8-1.2)
[2022-03-22 19:34] LABS: Partial Thromboplastin Time 28.8 SECONDS (23.9-36.7)
[2022-03-22 21:39] LABS: Troponin 5 2HR 12.33 ng/L (0-15)
[2022-03-22 21:54] LABS: Glucose Point of Care 90 mg/dL (70-110)
--- NOTE | 2022-03-22 22:12 | P.HP_ITS ---
Providers/Chief Complaint Admitting Physician: Nitin Kohli MD Primary Care Provider: Livia Ridley MD Chief Complaint: CHEST PAIN History of Present Illness Jeremie Alexander is a 61 year old male with a past medical history of CAD status post stenting x10, noninsulin-dependent type 2 diabetes mellitus, hypertension, status post ICD placement, history of ventricular tachycardia, history of sick sinus syndrome, depression, atrial fibrillation on Eliquis, recent hospitalization for chest pain, hypertensive urgency, had a coronary angiogram and a negative stress test during his last hospitalization who presents to [facility] due to right-sided weakness. Currently patient is alert to person, to place, to time, can follow commands, he does have some slurring of his words, he presents [facility] due to right-sided weakness. He does not yesterday he had some intermittent right-sided weakness, but his symptoms resolved and he did not seek medical care. Today at 10 AM, he noted sudden onset right upper and right lower extremity weakness with slurring of his words, right facial droop, he is on Eliquis, he also had chest pain. His NIH stroke scale on admission was 14, telestroke [facility] Dr. Rios was contacted, recommended that he was not a tPA candidate given his anticoagulation, CTA head and neck shows no large vessel occlusion. Currently he has flaccid paralysis of the right upper and right lower extremity, some slurring of his words, mild right facial droop. Review of Systems Card: Reports: chest pain Medications/Allergies Home Medications Medication Instructions Recorded Confirmed Last Taken Type apixaban 5 mg tablet (Eliquis) 5 mg PO BID 11/23/20 03/22/22 03/22/22 History ferrous sulfate 325 mg (65 mg 325 mg PO BID 11/23/20 03/22/22 03/22/22 History iron) tablet ranolazine 500 mg tablet,extended 500 mg PO BID 11/23/20 03/22/22 03/22/22 History release,12 hr tamsulosin 0.4 mg capsule 0.4 mg PO DAILY 11/23/20 03/22/22 03/22/22 History inmnvzrrsulj-guxpiivt-mvlsol tablet 1 tab PO DAILY 10/21/21 03/22/22 03/22/22 History nitroglycerin 0.4 mg sublingual 0.4 mg sublingual Q5M PRN Chest 10/21/21 03/22/22 03/22/22 History tablet (Nitrostat) Pain quetiapine 100 mg tablet 100 mg PO BEDTIME 10/21/21 03/22/22 03/21/22 History risperidone 2 mg tablet 2 mg PO BEDTIME 10/21/21 03/22/22 03/21/22 History furosemide 40 mg tablet (Lasix) 40 mg PO DAILY 03/14/22 03/22/22 03/22/22 History sertraline 50 mg tablet (Zoloft) 50 mg PO DAILY 03/14/22 03/22/22 03/22/22 History testosterone cypionate 200 mg/mL 200 mg SUBCUT Q14D 03/14/22 03/22/22 Unknown History intramuscular kit amlodipine 10 mg tablet 10 mg PO DAILY #90 tabs 03/16/22 03/22/22 03/22/22 Rx lisinopril 10 mg tablet 40 mg PO DAILY #90 tabs 03/16/22 03/22/22 03/22/22 Rx hydroxyzine HCl 25 mg tablet 25 mg PO BID PRN Anxiety 03/19/22 03/22/22 Unknown History melatonin 5 mg capsule 5 mg PO BEDTIME 03/19/22 03/22/22 03/21/22 History metoprolol succinate 25 mg 25 mg PO BID 03/19/22 03/22/22 03/22/22 History tablet,extended release 24 hr rosuvastatin 20 mg tablet 20 mg PO DAILY 03/19/22 03/22/22 03/21/22 History mirtazapine 15 mg tablet 15 mg PO BEDTIME 03/22/22 03/22/22 03/21/22 History potassium 99 mg tablet 99 mg PO DAILY 03/22/22 03/22/22 03/22/22 History Allergies Allergy/AdvReac Type Severity Reaction Status Date / Time ticagrelor [From Brilinta] Allergy Unknown ALGY-Hives Verified 03/19/22 09:43 trazodone Allergy Unknown ADR-Nightma Verified 03/19/22 09:43 re PFSH Acute PFSH: Medical History Afib Atrial fibrillation Back pain CAD (coronary artery disease) Chest pain Chest pain Chronic anticoagulation Diabetes Flu-like symptoms History of posttraumatic stress disorder (PTSD) HTN (hypertension) Hypertensive urgency Major depressive disorder, recurrent severe without psychotic features Pacemaker Pneumonia SSS (sick sinus syndrome) Syncope Tachycardia Transaminitis Surgical History Gastric banding status S/P placement of cardiac pacemaker Status post cholecystectomy Family History Father CAD (coronary artery disease) Mother Cancer Social History Smoking and tobacco status: never smoked Alcohol intake: never Household members: spouse Housing: House Vitals/I&O/Wt Last Vital Signs Temp 97.8 F 03/22/22 18:20 Pulse 67 03/22/22 21:42 Resp 14 03/22/22 21:42 BP 124/60 03/22/22 21:42 Pulse Ox 93 03/22/22 21:42 O2 Del Method 03/22/22 18:20 Weight last 48 hrs Weight 113.398 kg Physical Exam Const: COMMON NORMALS: no acute distress and patient oriented x3 HENMT: COMMON NORMALS: normocephalic HEAD & SCALP: normocephalic Resp: COMMON NORMALS: normal respiratory effort, No retractions, No use of accessory muscles and clear to auscultation bilaterally AUSCULTATION: clear to auscultation bilaterally Cardio: COMMON NORMALS: no JVD, regular rate, regular rhythm, S1 normal heart sound present and S2 normal heart sound present RATE: regular rate RHYTHM: regular rhythm HEART SOUNDS: S1 normal heart sound present and S2 normal heart sound present GI: COMMON NORMALS: Normal to inspection, nondistended, normoactive bowel sounds present, Soft to palpation, non-tender, No hepatosplenomegaly present, no masses and no bruits PALPATION: Yes Soft to palpation and Yes No hepatosplenomegaly present Extremity: COMMON NORMALS: capillary refill normal, no clubbing, cyanosis or edema, no calf tenderness and no pedal edema Neuro: COMMON NORMALS: patient oriented x3 OTHER: Right upper extremity strength, 0-5, right lower extremity strength 0 out of 5, slurring of his words, right facial droop, NIH stroke scale 14 Psych: COMMON NORMALS: mental status grossly normal Data : 03/22/22 18:18 03/22/22 18:18 A&P Assessment and plan (1) Acute ischemic stroke: Status: Acute (2) Chest pain: Status: Acute (3) HTN (hypertension): Status: Acute Plan Acute CVA -With right-sided deficits, flaccid paralysis, in addition numbness right facial droop, slurring of words CTA head and neck, - patent intracranial arteries, patent carotid and vertebral arteries -CT head no intracranial -Plan -Admit to general medical floors -Keep n.p.o., until formal speech therapy eval -Allow for permissive hypertension -Gentle IV hydration -Neurochecks, aspiration precautions, NIH stroke scale -Rectal aspirin -Atorvastatin -We will hold off on anticoagulation, hold off on his home Eliquis, due to concerns for large CVA, hemorrhagic conversion will need to discuss with neurology in the morning Chest pain cath in 10/2021 ?1. Moderate ? 2. ostial LAD stenosis. ? 3. iFR is nonischemic with a value of 0.91 and IVUS does not show ? 4. any plaque rupture or thrombus formation. stress 03/2022 1. Normal myocardial perfusion imaging with no evidence of ischemia ?2. LV systolic function is normal -Continue aspirin, statin Atrial fibrillation, currently not in exacerbation, Eliquis on hold due to concerns for hemorrhagic conversion Type 2 diabetes mellitus, insulin sliding scale Attestations Medical Necessity Statement*: Patient requires hospitalization, inpatient, greater than 2 midnights, for acute CVA Coding Level of Care Code Acute Shooter Helper for [facility] Fwd Exam Comprehensive Diagnoses Acute ischemic stroke I63.9 Chest pain R07.9 HTN (hypertension) I10
--- NOTE | 2022-03-22 22:12 | PC.NURSE ---
report received on patient at this time, neuro tele consult in progress, NIHSS completed by am shift and totalled 11, current deficits noted during exam by this nurse is right paralysis of arm and leg, numbness to right side of body, blindness to right vision farrell. LKWT 1800 03/22/22, exclusion criteria of jeanne young.
[2022-03-22 22:14] LABS: Troponin 5 2HR Delta -2.67 ABS# (0-10)
--- NOTE | 2022-03-22 22:30 | PC.NURSE ---
report given, patient moved to room 6
[2022-03-22 23:38] LABS: Chol HDL Ratio 2.67 mg/dL (1.0-5.00); Cholesterol 80 mg/dL (0-200); HDL Cholesterol 30 mg/dL (60-100); LDL Cholesterol Calculated 27 mg/dL (50-129); Triglycerides 116 mg/dL (0-150)
[2022-03-22] MEDS: dextrose 5%-sod chloride 0.9% 1,000 ML 100 ML IV (23:48)
[2022-03-22] MEDS: enoxaparin 40 mg/0.4 mL Syringe SUBCUT (23:49)
[2022-03-22] MEDS: pantoprazole 40 mg SDV IVP (23:49)
[2022-03-22] MEDS: aspirin 300 mg Supp PR (23:50)
[2022-03-23] VITALS (14 sets, daily range): BP systolic 115–154; BP diastolic 64–85; PULSE 59–69; RESP 16–20; TEMP 36.6–36.8; O2SAT 92–96
--- NOTE | 2022-03-23 00:02 | ECG_ITS ---
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 Measurements Intervals [place] Rate: 64 P: 90 PA: 198 QRS: 22 QRSD: 112 T: 32 QT: 326 QTc: 337 Interpretive Statements ELECTRONIC ATRIAL PACEMAKER POSSIBLE LATERAL MYOCARDIAL INFARCTION , OF INDETERMINATE AGE [30 ms Q WAVE IN I/aVL/V5/V6] Compared to ECG 03/22/2022 18:04:51 Myocardial infarct finding now present Electronically Signed On 03-23-2022 17:44:59 CDT by Jose Ugarte M.D. [id number]
[2022-03-23 00:21] LABS: Estmated Average Glucose 111; Hemoglobin A1C 5.5 % (4.0-6.0)
[2022-03-23] MEDS: morphine 4 mg/mL SDV 1 mL 2 MG IVP ×3 (00:24→10:06)
[2022-03-23 00:44] LABS: Add Urine Microscopic? NO; Charge for UA Resulting for Rev
[2022-03-23 01:07] LABS: Urine Appearance Clear (CLEAR); Urine Color Yellow (Yellow)
[2022-03-23 01:08] LABS: Bilirubin Urine Neg (Negative); Blood Urine Neg (Negative); Glucose Urine UA Norm (Normal); Ketones Urine 1+ (Negative); Leukocyte Esterase Urine Negative (Negative); Nitrate Urine Negative (Negative); Protein Urine Neg (Negative); Specific Gravity, Urine 1.005 (1.005-1.030); Sulfosalicylic Acid Urine Negative (Negative); Urobilinogen Urine 4 mg/dL (Negative); pH Urine 8 (5-7)
[2022-03-23 02:22] LABS: Basophils % 0.6 %; Eosinophils # 0.1 10^3/uL (0.0-0.8); Eosinophils % 2.7 %; Hematocrit 41.8 % (42.0-52.0); Hemoglobin 13.5 g/dL (11.7-16.6); Lymphocytes # 1.4 10^3/uL (0.8-4.8); Lymphocytes % 29.5 %; Mean Corpuscular HGB Conc 32.3 g/dL (30.0-36.0); Mean Corpuscular Hemoglobin 32.8 pg (28.0-34.0); Mean Corpuscular Volume 101.5 fl (80-94); Mean Platelet Volume 10.6 fL (7.4-10.4); Monocytes # 0.5 10^3/uL (0.2-0.9); Monocytes % 10.9 %; Neutrophils # 2.67 10^3/uL (1.8-7.7); Neutrophils % 56.3 %; Nucleated Red Blood Cells % 0 %; Platelet Count 179 10^3/cmm (130-400); Red Blood Count 4.12 10^6/uL (4.1-5.3); Red Cell Distribution Width 13.8 % (12.1-15.1); White Blood Count 4.8 10^3/uL (4.0-10.0)
[2022-03-23 02:53] LABS: Troponin 5 6HR 13.98 ng/L (0-15)
[2022-03-23 02:54] LABS: Alanine Aminotransferase 18 U/L (0-41); Albumin Level 3.3 g/dL (3.5-5.2); Alkaline Phosphatase 123 IU/L (40-130); Anion Gap 12.9 (5-19); Aspartate Amino Transferase 18 U/L (0-40); Blood Urea Nitrogen 8 mg/dL (8-23); Calcium 8.6 mg/dL (8.5-10.5); Carbon Dioxide 26 mmol/L (22-29); Chloride 104 mmol/L (98-107); Globulin 2.6 g/dL (1.3-4.6); Glomerular Filtration Rate 86.1 mL/min (90-130); Glucose 88 mg/dL (65-115); Magnesium 2.4 mg/dL (1.7-2.3); Osmolality Calculated 286 mOsm/kg (285-295); Phosphorus 3.3 mg/dL (2.5-4.5); Potassium 3.9 mmol/L (3.5-5.1); Sodium 139 mmol/L (136-145); Total Bilirubin 0.4 mg/dL (0.15-1.2); Total Protein 5.9 g/dL (6.6-8.7)
[2022-03-23 02:57] LABS: Troponin 5 6HR Delta -1.02 ng/L (0-12)
[2022-03-23 05:42] LABS: Glucose Point of Care 106 mg/dL (70-110)
[2022-03-23 06:36] LABS: Glucose Point of Care 103 mg/dL (70-110)
[2022-03-23 09:41] LABS: Glucose Point of Care 108 mg/dL (70-110)
[2022-03-23] MEDS: atorvastatin 40 mg Tablet 80 MG PO (09:56)
[2022-03-23] MEDS: dextrose 5%-sod chloride 0.9% 1,000 ML 100 ML IV ×2 (09:56→20:25)
--- NOTE | 2022-03-23 10:33 | PC.CHAP ---
Pastoral Care Encounter/Spiritual Assessment Type of Contact [] Declined presales engineer visit [] Patient/Family/Request visit [] Outpatient visit [] Follow-up visit [] Physician referral [] Code/Alert [x] Routine visit [] Staff referral [] Actively dying [] Patient sleeping [] Family support [] [] Out of room [] Palliative care [] [] Receiving care in room [] Pre-surgical visit [] Trauma [] Long length of stay [] ICU visit [] Other: Relational/Emotional Strength [x] Patient feels connected with others/family/visitors/staff [] Distress [] Loneliness/isolation [] Abandonment Spirituality of Patient [x] Person of Sherrie [x] Attends Buddhism of their Sherrie [x] Believes in Prayer [x] Reads Bible or Cheondoism materials [] There are Spiritual issues to be addressed Bill Poster Installer Interventions [x] Prayer [x] Active listening [x] Non-anxious presence [] Spiritual/emotional support [] Crisis/trauma care [] Spiritual counseling [] Bereavement support [] Provided bereavement packet [] Provided Bible/devotional materials [] Provided toy/stuffed animal, coloring book to patient or family member [] Provided Communion [] Anointing/[place] [] Salvation [x] Completed spiritual assessment [] Other: Impact on Illness or Injury [] Angry [] Fearful [] Anxious [] Often cries [] Exhaustion [] Unable to work [] Unable to attend protestant [] Unable to walk/stand [] Unable to read [] Unable to drive [] Unable to eat/drink [] Unable to sleep [] Unable to be with family [] Patient intubated [] Other: Summary Time spent with patient 15 min
[2022-03-23] MEDS: aspirin 81 mg EC Tablet 162 MG PO (14:02)
[2022-03-23] MEDS: HYDROcodone-acetaminophen 5-325 mg Tablet 1 TAB PO ×2 (16:12→22:35)
--- NOTE | 2022-03-23 18:11 | P.PN_ITS ---
Subjective Subjective: Is starting to improve in terms of his symptoms. He is regaining strength in his right upper and lower extremity. Improvement in right-sided facial droop. Still decreased sensation on the right side of his body. Has been working today with physical, occupational and speech therapy. Vitals/I&O/Wt Last Vital Signs Temp 98.0 F 03/23/22 16:00 Pulse 59 L 03/23/22 16:00 Resp 18 03/23/22 16:00 BP 154/80 03/23/22 16:00 Pulse Ox 92 03/23/22 15:20 O2 Del Method 03/23/22 15:20 03/23/22 03/23/22 03/23/22 06:59 14:59 22:59 Intake Total 1720 / 1720 Output Total 250 / 250 400 / 400 Balance -250 / -250 1720 / 1720 -400 / 1320 Weight last 48 hrs Weight 108.097 kg Weight 113.398 kg Physical Exam Const: COMMON NORMALS: patient oriented x3 and alert GENERAL APPEARANCE: cooperative ORIENTATION/CONSCIOUSNESS: Yes awake HENMT: COMMON NORMALS: oropharynx normal Neck/C-Spine: COMMON NORMALS: no meningeal signs and no JVD Resp: COMMON NORMALS: normal respiratory effort and clear to auscultation bilaterally AUSCULTATION: clear to auscultation bilaterally Cardio: COMMON NORMALS: no JVD, regular rhythm, S1 normal heart sound present, S2 normal heart sound present and No murmurs present (Cardio) RHYTHM: regular rhythm HEART SOUNDS: S1 normal heart sound present and S2 normal heart sound present GI: COMMON NORMALS: Normal to inspection, nondistended, normoactive bowel sounds present, Soft to palpation and non-tender PALPATION: Yes Soft to palpation Extremity: COMMON NORMALS: no joint enlargement and no pedal edema Neuro: COMMON NORMALS: patient oriented x3 SENSORIUM/ORIENTATION: Yes alert MENINGEAL SIGNS: Yes no meningeal signs COORDINATION/BALANCE: erfala-nc-kfjz test normal SPEECH: speech normal SENSORY EXAM: Yes Normal double simultaneous stimulation for sensation and other (Diminished on R side) MOTOR EXAM: Other motor observations present (Pronator mild drift R upper and lower ) COORDINATION: hkmnbj-sc-nnzs test normal OTHER: He is keenly alert and following directions without any problems. No trouble tracking, however, does report mild vertigo at extremes of gaze bilaterally. Visual farrell full to confrontation. No visual extinction. Skin: COMMON NORMALS: no rashes or lesions noted GENERAL SKIN EXAM: no rashes or lesions noted Data : 03/23/22 01:31 03/23/22 01:31 A&P Assessment and plan (1) Acute ischemic stroke: Symptoms appear to be improving. Improving weakness on the right side. Less likely to have large area of stroke. Unfortunately unable to obtain MRI due to presence of pacemaker. Discussed difficulty with him and his . As per discussion they are agreeable to plan to follow-up CT of the head in several days to reassess in addition to his clinical condition possible size of the CVA. For now his anticoagulation has been on hold due to possibility of larger size CVA. As per discussion with them signs of CVA will help determine timing of resumption of Eliquis. No significant intracranial or neck stenosis on CT angiogram. Known atrial fibrillation. For now permissive hypertension, bring down blood pressure gradually. Assess limited TTE with bubble study. Continue work with PT, OT, ST Continue aspirin, statin. Follow-up with neurology. Case management working on disposition planning. He would like to pursue rehabilitation at SNF. Status: Acute (2) Chest pain: Resolved. Reassess additionally limited TTE He had just had a stress test on 03/16 which was normal without evidence of ischemia. CTA chest abdomen pelvis on 03/22 with unremarkable vasculature, with aberrant right subclavian artery. Status: Acute (3) HTN (hypertension): Permissive hypertension for now. Status: Acute Plan cath in 10/2021 ?1. Moderate ? 2. ostial LAD stenosis. ? 3. iFR is nonischemic with a value of 0.91 and IVUS does not show ? 4. any plaque rupture or thrombus formation. stress 03/2022 1. Normal myocardial perfusion imaging with no evidence of ischemia ?2. LV systolic function is normal -Continue aspirin, statin Atrial fibrillation, currently not in exacerbation Type 2 diabetes mellitus, insulin sliding scale Attestations Medical Necessity Statement*: Continue admission for assessment management after acute CVA Coding Level of Care Code Acute Ssn/Ssbn Assistant Navigator for [facility] Fwd Exam Comprehensive Diagnoses Acute ischemic stroke I63.9 Chest pain R07.9 HTN (hypertension) I10
[2022-03-23] MEDS: pantoprazole 40 mg SDV IVP (22:36)
[2022-03-24] VITALS (8 sets, daily range): BP systolic 117–168; BP diastolic 73–93; PULSE 63–69; RESP 16–19; TEMP 36.4–36.8; O2SAT 93–99
--- NOTE | 2022-03-24 03:00 | ECG_ITS ---
[facility] Test Date: 2022-03-24 Pat Name: Jeremie Alexander Department: Room: 254 Gender: Male Experience Designer: : 1960 Requested By: Nitin Kohli Order Number: [id number] Lucinda MD: Joyce Gonzalez M.D. Measurements Intervals [place] Rate: 67 P: 69 IN: 156 QRS: -1 QRSD: 114 T: 24 QT: 342 QTc: 363 Interpretive Statements SINUS RHYTHM Compared to ECG 03/22/2022 23:54:48 Atrial-paced complex(es) or rhythm no longer present Myocardial infarct finding no longer present Electronically Signed On 03-24-2022 18:04:01 CDT by Joyce Gonzalez M.D. [id number]
[2022-03-24] MEDS: metoprolol tartrate 25 mg Tablet 12.5 MG PO ×3 (03:24→20:55)
[2022-03-24 04:18] LABS: Basophils % 0.3 %; Eosinophils # 0.1 10^3/uL (0.0-0.8); Eosinophils % 4.3 %; Hematocrit 38.8 % (42.0-52.0); Hemoglobin 12.6 g/dL (11.7-16.6); Lymphocytes % 33.4 %; Mean Corpuscular HGB Conc 32.5 g/dL (30.0-36.0); Mean Corpuscular Volume 101.6 fl (80-94); Monocytes # 0.4 10^3/uL (0.2-0.9); Monocytes % 11.9 %; Neutrophils # 1.51 10^3/uL (1.8-7.7); Neutrophils % 50.1 %; Nucleated Red Blood Cells % 0 %; Platelet Count 145 10^3/cmm (130-400); Red Blood Count 3.82 10^6/uL (4.1-5.3); Red Cell Distribution Width 13.7 % (12.1-15.1)
[2022-03-24 04:43] LABS: Troponin(5th) Baseline 13 ng/L (0-15)
[2022-03-24 04:46] LABS: Alanine Aminotransferase 15 U/L (0-41); Alkaline Phosphatase 106 U/L (40-130); Anion Gap 11.1 (5-19); Aspartate Amino Transferase 18 U/L (0-40); Blood Urea Nitrogen 8 mg/dL (8-23); Calcium 8.3 mg/dL (8.5-10.5); Carbon Dioxide 26 mmol/L (22-29); Chloride 109 mmol/L (98-107); Globulin 2.1 g/dL (1.3-4.6); Glomerular Filtration Rate 76.2 mL/min (90-130); Glucose 161 mg/dL (65-115); Magnesium 2.1 mg/dL (1.7-2.3); Osmolality Calculated 296 mOsm/kg (285-295); Phosphorus 3.4 mg/dL (2.5-4.5); Potassium 4.1 mmol/L (3.5-5.1); Sodium 142 mmol/L (136-145); Total Bilirubin 0.3 mg/dL (0.15-1.2); Total Protein 5.1 g/dL (6.6-8.7)
[2022-03-24] MEDS: HYDROcodone-acetaminophen 5-325 mg Tablet 1 TAB PO ×3 (05:40→18:41)
[2022-03-24] MEDS: dextrose 5%-sod chloride 0.9% 1,000 ML 100 ML IV ×2 (05:41→16:22)
[2022-03-24 07:33] LABS: Troponin 5 2HR 12.37 ng/L (0-15)
[2022-03-24 07:46] LABS: Troponin 5 2HR Delta -0.63 ABS# (0-10)
[2022-03-24] MEDS: aspirin 81 mg EC Tablet 162 MG PO (09:15)
[2022-03-24] MEDS: atorvastatin 40 mg Tablet 80 MG PO (09:15)
[2022-03-24 10:49] LABS: Troponin 5 6HR Delta -2.6 ng/L (0-12)
--- NOTE | 2022-03-24 17:33 | CTR_ITS ---
PROCEDURE INFORMATION: Exam: CT Head Without Contrast Exam date and time: 03/24/2022 10:53 PM Age: 61 years old Clinical indication: Altered mental status/memory loss and weakness, extremity; Right; Additional info: Follow up to reassess for size of CVA TECHNIQUE: Imaging protocol: Computed tomography of the head without contrast. Radiation optimization: All CT scans at this facility use at least one of these dose optimization techniques: automated exposure control; mA and/or kV adjustment per patient size (includes targeted exams where dose is matched to clinical indication); or iterative reconstruction. COMPARISON: CT head wo con* [id number] 03/22/2022 6:23 PM RADIATION DOSE METRICS: Total DLP (mGy-cm): 1130.08 FINDINGS: Brain: Age related parenchymal volume loss noted. There is decreased attenuation of the periventricular white matter, consistent with mild chronic microangiopathic white matter disease. No parenchymal edema identified. No intracranial hemorrhage noted. Cerebral ventricles: No ventriculomegaly. Paranasal sinuses: Visualized sinuses are unremarkable. No fluid levels. Mastoid air cells: Unremarkable as visualized. No mastoid effusion. Orbital cavities: The No acute abnormality of the orbits demonstrated. Bones/joints: Unremarkable. No acute fracture. Soft tissues: Unremarkable. CT/CT head wo con* [id number] IMPRESSION: 1. No acute intracranial abnormality demonstrated. 2. There is no interval change from the prior examination.
--- NOTE | 2022-03-24 18:12 | USCV_ITS ---
Jeremie Alexander Age: 61 Gender: M : 1960 Exam Date: 03/24/2022 04:33 Ordering Phys: Holger Ortiz MD Technologist: LIZETH [place] [facility] [place]: [place]A, History of cardiac stents 2018 BP: 148 / 89 HR: 64 Rhythm: Sinus Technical Quality: Adequate MEASUREMENTS (Male / Female) Normal Values 2D ECHO LV Diastolic Diameter PLAX 5.2 cm 4.2 - 5.9 / 3.9 - 5.3 cm LV Systolic Diameter PLAX 4.2 cm IVS Diastolic Thickness 1.5 cm 0.6 - 1.0 / 0.6 - 0.9 cm IVS Systolic Thickness 1.9 cm LVPW Diastolic Thickness 1.3 cm 0.6 - 1.0 / 0.6 - 0.9 cm LVPW Systolic Thickness 0.9 cm LVOT Diameter 2.4 cm LV Ejection Fraction 2D Teich 41.0 % LV Ejection Fraction MOD 2C 73.1 % LV Ejection Fraction 2C AL 76.0 % LA Diameter 5.9 cm LA Width 4.1 cm LA Height 5.8 cm RA Width 3.0 cm RA Height 3.6 cm Aorta at Sinotubular Diameter 2.9 cm IVC Diameter 1.7 cm M-MODE Aortic Annulus Diameter 3.2 cm LA Ao Ratio MM 1.7 MV E Point Septal Separation 0.4 cm DOPPLER AV Peak Velocity 167.0 cm/s LVOT Peak Velocity 102.0 cm/s AV Area Cont Eq vti 2.7 cm squared AV Area Cont Eq pk 2.6 cm squared MV Area PHT 3.9 cm squared Mitral E to A Ratio 1.2 MV E' Velocity 40.5 cm/s Mitral E to MV E' Ratio 8.6 Mitral E to LV E' Lateral Ratio 7.1 Mitral E to LV E' Septal Ratio 11.0 TR Peak Velocity 195.7 cm/s TR Peak Gradient 15.3 mmHg TV Peak E Velocity 64.0 cm/s Right Atrial Pressure 10.0 mmHg Pulmonary Artery Systolic Pressu 25.3 mmHg PV Peak Velocity 85.0 cm/s RV Acceleration Time 0.1 s RV Ejection Time 0.3 s RV AcT/ET 0.4 FINDINGS Left Ventricle Normal left ventricular size, systolic function and wall thickness, with no regional wall motion abnormalities. Left ventricular ejection fraction is estimated at 65 %. Normal diastolic function. Right Ventricle Normal right ventricular size and systolic function. Right ventricular systolic pressure 19 mmHg. Pacemaker wire visualized in the right ventricle. Right Atrium Normal right atrial size. No evidence of intracardiac shunt by bubble study. Left Atrium Mildly increased left atrial size. Mitral Valve Structurally normal mitral valve. No mitral valve stenosis. Trace mitral valve regurgitation. Aortic Valve Moderately thickened and calcified aortic valve. No aortic valve stenosis. Mild aortic valve regurgitation. Tricuspid Valve Structurally normal tricuspid valve. No tricuspid valve stenosis. Trace tricuspid valve regurgitation. Pulmonic Valve Pulmonic valve not well visualized. No pulmonary valve stenosis. Pericardium No pericardial effusion. Aorta Normal size aortic root and proximal ascending aorta. IVC Normal IVC dimension with >50% respiratory change of the inferior vena cava. CONCLUSIONS 1. Normal left ventricular size, systolic function and wall thickness, with no regional wall motion abnormalities. Left ventricular ejection fraction is estimated at 65 %. Normal diastolic function. 2. Normal right ventricular size and systolic function. 3. Normal pulmonary artery pressure. 4. Mild aortic valve regurgitation. 5. No evidence of intracardiac shunt by bubble study. 6. No significant change when compared to prior study dated 10/22/2021 Joyce Gonzalez MD (Electronically Signed) Final Date: 24 March 2022 12:41 S
--- NOTE | 2022-03-24 21:00 | P.PN_ITS ---
Subjective Subjective: He is continue to gradually improve, improving strength and sensation on the right side of his body. Vitals/I&O/Wt Last Vital Signs Temp 98.1 F 03/24/22 19:52 Pulse 64 03/24/22 19:52 Resp 17 03/24/22 19:52 BP 133/73 03/24/22 19:52 Pulse Ox 95 03/24/22 19:52 O2 Del Method 03/23/22 15:20 03/24/22 03/24/22 03/24/22 06:59 14:59 22:59 Intake Total 926.667 / 4366.667 1000 / 1000 Output Total 750 / 1350 900 / 900 Balance 176.667 / 3016.667 100 / 100 Weight last 48 hrs Weight 108.097 kg Physical Exam Const: COMMON NORMALS: patient oriented x3 and alert GENERAL APPEARANCE: cooperative ORIENTATION/CONSCIOUSNESS: Yes awake HENMT: COMMON NORMALS: oropharynx normal Neck/C-Spine: COMMON NORMALS: no meningeal signs and no JVD Resp: COMMON NORMALS: normal respiratory effort and clear to auscultation bilaterally AUSCULTATION: clear to auscultation bilaterally Cardio: COMMON NORMALS: no JVD, regular rhythm, S1 normal heart sound present, S2 normal heart sound present and No murmurs present (Cardio) RHYTHM: regular rhythm HEART SOUNDS: S1 normal heart sound present and S2 normal heart sound present GI: COMMON NORMALS: Normal to inspection, nondistended, normoactive bowel sounds present, Soft to palpation and non-tender PALPATION: Yes Soft to palpation Extremity: COMMON NORMALS: no joint enlargement and no pedal edema Neuro: COMMON NORMALS: patient oriented x3 and moves all extremities SENSORIUM/ORIENTATION: Yes alert MENINGEAL SIGNS: Yes no meningeal signs COORDINATION/BALANCE: trhcif-zg-vvbi test normal SPEECH: speech normal SENSORY EXAM: Yes Normal double simultaneous stimulation for sensation and other (Diminished on R side) MOTOR EXAM: Other motor observations present (Pronator mild drift R upper and lower ) COORDINATION: astxgs-ry-rtog test normal OTHER: He is keenly alert and following directions without any problems. No trouble tracking, however, does report mild vertigo at extremes of gaze bilaterally. Visual farrell full to confrontation. No visual extinction. Improving strength and reports improved sensation on the right side. Skin: COMMON NORMALS: no rashes or lesions noted GENERAL SKIN EXAM: no rashes or lesions noted Data : 03/24/22 04:13 03/24/22 04:13 A&P Assessment and plan (1) Acute ischemic stroke: Symptoms continue to be improving. Improving progress with physical therapy. Requested follow-up CAT scan of his head so as to aid reassessment of size of CVA, although this is not likely to be large CVA given his continued improvement. We likely should be able to restart his Eliquis. Still also pending determination regarding destination, SNF was considered needed, although will reassess again tomorrow and as he continues to improve, may even be able to return home with outpatient therapy. No significant intracranial or neck stenosis on CT angiogram. Known atrial fibrillation. For now permissive hypertension, bring down blood pressure gradually. No evidence of intracardiac shunt on bubble study. Continue work with PT, OT, ST Continue aspirin, statin. Follow-up with neurology. Status: Acute (2) Chest pain: Resolved. Limited TTE with normal ejection fraction. No R WMA. He had just had a stress test on 03/16 which was normal without evidence of ischemia. CTA chest abdomen pelvis on 03/22 with unremarkable vasculature, with aberrant right subclavian artery. Status: Acute (3) HTN (hypertension): Permissive hypertension for now. Status: Acute Plan cath in 10/2021 ?1. Moderate ? 2. ostial LAD stenosis. ? 3. iFR is nonischemic with a value of 0.91 and IVUS does not show ? 4. any plaque rupture or thrombus formation. stress 03/2022 1. Normal myocardial perfusion imaging with no evidence of ischemia ?2. LV systolic function is normal -Continue aspirin, statin Atrial fibrillation, currently not in exacerbation Type 2 diabetes mellitus, insulin sliding scale Attestations Medical Necessity Statement*: Continue admission for reassessment after acute CVA, reassessment for timing of resumption of anticoagulation. Disposition planning and arrangements. Coding Level of Care Code Acute Advanced Manager for Anabela Clark Diagnoses Acute ischemic stroke I63.9 Chest pain R07.9 HTN (hypertension) I10
[2022-03-24] MEDS: pantoprazole 40 mg SDV IVP (22:36)
[2022-03-25] VITALS: BP 156/81; PULSE 65; RESP 18; TEMP 36.4; O2SAT 98
[2022-03-25] MEDS: HYDROcodone-acetaminophen 5-325 mg Tablet 1 TAB PO ×2 (00:55→08:57)
[2022-03-25 04:00] VITALS: BP 138/83; PULSE 66; RESP 18; TEMP 36.7; O2SAT 95
[2022-03-25] MEDS: dextrose 5%-sod chloride 0.9% 1,000 ML 100 ML IV (04:11)
[2022-03-25 05:17] LABS: Basophils % 0.4 %; Eosinophils # 0.2 10^3/uL (0.0-0.8); Eosinophils % 3.8 %; Hematocrit 41.8 % (42.0-52.0); Hemoglobin 13.8 g/dL (11.7-16.6); Lymphocytes # 1.4 10^3/uL (0.8-4.8); Lymphocytes % 29.6 %; Mean Corpuscular Hemoglobin 32.8 pg (28.0-34.0); Mean Corpuscular Volume 99.3 fl (80-94); Monocytes # 0.5 10^3/uL (0.2-0.9); Monocytes % 10.4 %; Neutrophils # 2.65 10^3/uL (1.8-7.7); Neutrophils % 55.4 %; Nucleated Red Blood Cells % 0 %; Platelet Count 173 10^3/cmm (130-400); Red Blood Count 4.21 10^6/uL (4.1-5.3); Red Cell Distribution Width 13.3 % (12.1-15.1); White Blood Count 4.8 10^3/uL (4.0-10.0)
[2022-03-25 05:48] LABS: Alanine Aminotransferase 18 U/L (0-41); Albumin Level 3.7 g/dL (3.5-5.2); Alkaline Phosphatase 121 U/L (40-130); Aspartate Amino Transferase 21 U/L (0-40); Blood Urea Nitrogen 5 mg/dL (8-23); Calcium 8.9 mg/dL (8.5-10.5); Carbon Dioxide 27 mmol/L (22-29); Chloride 106 mmol/L (98-107); Globulin 1.9 g/dL (1.3-4.6); Glucose 92 mg/dL (65-115); Osmolality Calculated 291 mOsm/kg (285-295); Phosphorus 3.6 mg/dL (2.5-4.5); Sodium 142 mmol/L (136-145); Total Bilirubin 0.5 mg/dL (0.15-1.2); Total Protein 5.6 g/dL (6.6-8.7)
[2022-03-25 06:00] VITALS: PULSE 67
[2022-03-25 08:00] VITALS: BP 150/83; PULSE 76; RESP 16; TEMP 36.5; O2SAT 96
[2022-03-25] MEDS: metoprolol tartrate 25 mg Tablet 12.5 MG PO (08:56)
[2022-03-25] MEDS: atorvastatin 40 mg Tablet 80 MG PO (09:00)
[2022-03-25] MEDS: aspirin 81 mg EC Tablet 162 MG PO (09:03)
[2022-03-25 12:00] VITALS: BP 141/80; PULSE 80; RESP 18; TEMP 36.5; O2SAT 95
--- NOTE | 2022-03-25 13:09 | PC.SOCIAL ---
Pg 2 IMM Explained to pt Pg 2 IMM. No questions voiced. Provided pt a copy. Initialed, dated, & timed a copy & placed in chart.
--- NOTE | 2022-03-25 13:19 | PM.DCS ---
Discharge Providers Date of Admission: 03/22/22 19:29 Date of Discharge: March 25, 2022 Attending Provider at Admission: Nitin Kohli MD Attending Provider at Discharge: Holger Ortiz Primary Care Provider: Livia Ridley MD Diagnoses at Discharge Discharge Diagnosis (1) Acute ischemic stroke: Status: Acute (2) Chest pain: Status: Acute (3) HTN (hypertension): Status: Acute Reason for Visit Reason for Visit: CHEST PAIN Hospital Course Hospital Course Pleasant 61-year-old gentleman was admitted for assessment of management of CVA after presenting with right-sided weakness, right side sensation loss. At home he reported also having transiently blurred vision in the right eye which had resolved. CT of the head did not show any acute findings. He was outside the window for intervention. Due to concern for possibly large stroke his Eliquis was initially held. Permissive hypertension was maintained. CT angiogram of head and neck did not reveal any significant stenosis. CTA chest abdomen pelvis obtained on presentation as well due to concomitant complaint of chest pain showed normal thoracic and abdominal aorta without dissection or aneurysm. Coronary disease. Small bilateral pleural effusions and bibasilar atelectasis. Small noncalcified 8 mm nodular density adjacent to a calcified granuloma in the right lower lobe may be an area of scarring. Indeterminate T1-T2 right paravertebral nodular lesion. Benign neurogenic tumor is a consideration. Nonemergent thoracic spine MRI with contrast may allow further assessment. Small hiatal hernia. Echocardiogram with bubble study showed no evidence of intracardiac shunt. Normal ejection fraction. No regional wall motion normality. He had no recurrence of chest pain or pressure. Troponin and EKG series were not suggestive of acute TN. He had a stress test on 03/15 which was negative for ischemia. Please follow-up with him regarding any recurrence of episodes of chest pain. While in the hospital he was maintained on aspirin, statin. Was assessed by PT, OT, ST. Initially the degree of weakness combined with sensation loss of on the right side led to significant impairment and difficulties with ambulation requiring assistance, plans were initially made for additional rehabilitation after discharge. However, your hospitalization he showed very good and rapid improvement, with improvement in strength in the right side, and regained most of sensation on the right as well. Unfortunately he could not have MRI of the brain due to presence of pacemaker. CT of the head was repeated which did not show large CVA. With continued improvement in his symptoms large CVA less likely Eliquis is being resumed. He had no recurrence of blurred vision. He denied any jaw claudication, no temporal tenderness. He is asked to follow-up with neurology and ophthalmology. His testosterone for now is stopped due to risk of CVA, please revisit with him in office. Physical Exam Const: COMMON NORMALS: patient oriented x3 and alert GENERAL APPEARANCE: cooperative ORIENTATION/CONSCIOUSNESS: Yes awake HENMT: COMMON NORMALS: oropharynx normal Neck/C-Spine: COMMON NORMALS: no meningeal signs and no JVD Resp: COMMON NORMALS: normal respiratory effort and clear to auscultation bilaterally AUSCULTATION: clear to auscultation bilaterally Cardio: COMMON NORMALS: no JVD, regular rhythm, S1 normal heart sound present, S2 normal heart sound present and No murmurs present (Cardio) RHYTHM: regular rhythm HEART SOUNDS: S1 normal heart sound present and S2 normal heart sound present GI: COMMON NORMALS: Normal to inspection, nondistended, normoactive bowel sounds present, Soft to palpation and non-tender PALPATION: Yes Soft to palpation Extremity: COMMON NORMALS: no joint enlargement and no pedal edema Neuro: COMMON NORMALS: patient oriented x3 and moves all extremities SENSORIUM/ORIENTATION: Yes alert MENINGEAL SIGNS: Yes no meningeal signs COORDINATION/BALANCE: tijzno-ky-rkbd test normal SPEECH: speech normal SENSORY EXAM: Yes extremities (Symmetrical) and Normal double simultaneous stimulation for sensation MOTOR EXAM: Other motor observations present (RLE minimal pronator drift only.) COORDINATION: [id number]-cq-njao test normal OTHER: He is keenly alert and following directions without any problems. No trouble tracking Visual farrell full to confrontation. No visual extinction. Improving strength. Min drift RLE only. Improved sensation on the right side. Skin: COMMON NORMALS: no rashes or lesions noted GENERAL SKIN EXAM: no rashes or lesions noted Discharge Data Studies Completed and Pending Completed Studies During Hospitalization Category Date Time Status CT head wo con* [id number] Routine Cat Scan 03/24/22 17:[address] head wo con* [id number] Stat Cat Scan 03/22/22 18:12 Completed CTA chest abdomen pelvis [CT angio chest abdomen pelvis Cat Scan 03/22/22 18:12 Completed ] Stat CTA head neck [CT angio headneck* [id number]] Stat Cat Scan 03/22/22 18:17 Completed CV. echo lmt wo/w bubble [id number] Routine Ultrasound 03/24/22 18:12 Completed Radiology Impressions Chest/Abdomen/Pelvis CTA 03/22/22 18:12 IMPRESSION: 1. Normal thoracic and abdominal aorta. No dissection or aneurysm. 2. Coronary artery disease. 3. Small bilateral pleural effusions and bibasilar atelectasis. Small noncalcified 8 mm nodular density adjacent to a calcified granuloma in the right lower lobe may be an area of scarring. 4. Indeterminate T1-T2 right paravertebral nodular lesion. A benign neurogenic tumor is a consideration. Nonemergent thoracic spine MRI with contrast may allow further assessment. 5. Small hiatal hernia. Head/Neck CTA 03/22/22 18:17 IMPRESSION: Patent neck carotid and vertebral arteries. REFERENCES: NASCET CRITERIA. The degree of internal carotid artery stenosis is based on NASCET criteria. Normal is no stenosis. Mild is less than 50% stenosis. Moderate is 50-69% stenosis. Severe is 70% to 99% stenosis. Total occlusion is no detectable patent lumen. Head CT 03/24/22 17:33 IMPRESSION: 1. No acute intracranial abnormality demonstrated. 2. There is no interval change from the prior examination. Laboratory Results WBC 4.8 10^3/uL (4.0-10.0) 03/25/22 04:53 RBC 4.21 10^6/uL (4.1-5.3) 03/25/22 04:53 Hgb 13.8 g/dL (11.7-16.6) 03/25/22 04:53 Hct 41.8 % (42.0-52.0) L 03/25/22 04:53 MCV 99.3 fl (80-94) H 03/25/22 04:53 MCH 32.8 pg (28.0-34.0) 03/25/22 04:53 MCHC 33.0 g/dL (30.0-36.0) 03/25/22 04:53 RDW 13.3 % (12.1-15.1) 03/25/22 04:53 Plt Count 173 10^3/cmm (130-400) 03/25/22 04:53 MPV 11.0 fL (7.4-10.4) H 03/25/22 04:53 Neut % (Auto) 55.4 % 03/25/22 04:53 Lymph % (Auto) 29.6 % 03/25/22 04:53 [place] % (Auto) 10.4 % 03/25/22 04:53 Eos % (Auto) 3.8 % 03/25/22 04:53 Baso % (Auto) 0.4 % 03/25/22 04:53 Neut # (Auto) 2.65 10^3/uL (1.8-7.7) 03/25/22 04:53 Lymph # (Auto) 1.4 10^3/uL (0.8-4.8) 03/25/22 04:53 [place] # (Auto) 0.5 10^3/uL (0.2-0.9) 03/25/22 04:53 Eos # (Auto) 0.2 10^3/uL (0.0-0.8) 03/25/22 04:53 Baso # (Auto) 0.0 10^3/uL (0.0-0.1) 03/25/22 04:53 Nucleated RBC % (auto) 0 % 03/25/22 04:53 Nucleated RBCs # 0.0 /100WBC 03/25/22 04:53 PT 13.10 SECONDS (12.1-14.9) 03/22/22 18:18 INR 0.96 (0.8-1.2) 03/22/22 18:18 APTT 28.8 SECONDS (23.9-36.7) 03/22/22 18:18 Sodium 142 mmol/L (136-145) 03/25/22 04:53 Potassium 4.0 mmol/L (3.5-5.1) 03/25/22 04:53 Chloride 106 mmol/L (98-107) 03/25/22 04:53 Carbon Dioxide 27 mmol/L (22-29) 03/25/22 04:53 Anion Gap 13.0 (5-19) 03/25/22 04:53 BUN 5 mg/dL (8-23) L 03/25/22 04:53 Creatinine 0.7 mg/dL (0.7-1.2) 03/25/22 04:53 GFR Calculation 115.0 mL/min (90-130) 03/25/22 04:53 Glucose 92 mg/dL (65-115) 03/25/22 04:53 POC Glucose 108 mg/dL (70-110) 03/23/22 09:37 Estimat Average Glucose 111 03/22/22 18:18 Hemoglobin A1c 5.5 % (4.0-6.0) 03/22/22 18:18 Calculated Osmolality 291 mOsm/kg (285-295) 03/25/22 04:53 Calcium 8.9 mg/dL (8.5-10.5) 03/25/22 04:53 Phosphorus 3.6 mg/dL (2.5-4.5) 03/25/22 04:53 Magnesium 2.0 mg/dL (1.7-2.3) 03/25/22 04:53 Total Bilirubin 0.5 mg/dL (0.15-1.2) 03/25/22 04:53 AST 21 U/L (0-40) 03/25/22 04:53 ALT 18 U/L (0-41) 03/25/22 04:53 Alkaline Phosphatase 121 U/L (40-130) 03/25/22 04:53 Troponin T Baseline 13 ng/L (0-15) 03/24/22 04:13 Troponin T 120 Minute 12.37 ng/L (0-15) 03/24/22 06:50 Delta Troponin T -0.63 ABS# (0-10) L 03/24/22 06:50 Troponin T Hi Sens 6Hr 11.40 ng/L (0-15) 03/24/22 09:35 Troponin T Hi Sens 6Hr Delta -2.6 ng/L (0-12) L 03/24/22 09:35 Total Protein 5.6 g/dL (6.6-8.7) L 03/25/22 04:53 Albumin 3.7 g/dL (3.5-5.2) 03/25/22 04:53 Globulin 1.9 g/dL (1.3-4.6) 03/25/22 04:53 Triglycerides 116 mg/dL (0-150) 03/22/22 20:53 Cholesterol 80 mg/dL (0-200) 03/22/22 20:53 LDL Cholesterol, Calc 27 mg/dL (50-129) L 03/22/22 20:53 HDL Cholesterol 30 mg/dL (60-100) L 03/22/22 20:53 LDL/HDL Ratio 0.90 RATIO (0.00-3.22) 03/22/22 20:53 Cholesterol/HDL Ratio 2.67 mg/dL (1.0-5.00) 03/22/22 20:53 Urine Color Yellow (Yellow) 03/22/22 00:30 Urine Appearance Clear (CLEAR) 03/22/22 00:30 Urine pH 8 (5-7) H 03/22/22 00:30 Ur Specific [place] 1.005 (1.005-1.030) 03/22/22 00:30 Urine Protein Neg (Negative) 03/22/22 00:30 Urine Glucose (UA) Norm (Normal) 03/22/22 00:30 Urine Ketones 1+ (Negative) H 03/22/22 00:30 Urine Blood Neg (Negative) 03/22/22 00:30 Urine Nitrate Negative (Negative) 03/22/22 00:30 Urine Bilirubin Neg (Negative) 03/22/22 00:30 Prot Sulfosalicylic Acd Negative (Negative) 03/22/22 00:30 Urine Urobilinogen 4 mg/dL (Negative) H 03/22/22 00:30 Ur Leukocyte Esterase Negative (Negative) 03/22/22 00:30 Vitals Last Vital Signs Temp 97.7 F 03/25/22 12:00 Pulse 80 03/25/22 12:00 Resp 18 03/25/22 12:00 BP 141/80 03/25/22 12:00 Pulse Ox 95 03/25/22 12:00 O2 Del Method 03/25/22 08:00 Discharge Plan Discharge Patient Disposition: Home Condition: Stable Prescriptions: New aspirin 81 mg capsule 81 mg PO DAILY Qty: 90 0RF Continued rosuvastatin 20 mg tablet 20 mg PO DAILY hydroxyzine HCl 25 mg tablet 25 mg PO BID PRN (Reason: Anxiety) melatonin 5 mg capsule 5 mg PO BEDTIME metoprolol succinate 25 mg tablet extended release 24 hr 25 mg PO BID tamsulosin 0.4 mg Capsule 0.4 mg PO DAILY ferrous sulfate 325 mg (65 mg iron) Tablet 325 mg PO BID ranolazine 500 mg Tablet Extended Release 12 Hr 500 mg PO BID Eliquis 5 mg Tablet 5 mg PO BID quetiapine 100 mg tablet 100 mg PO BEDTIME risperidone 2 mg tablet 2 mg PO BEDTIME nitroglycerin [Nitrostat] 0.4 mg Tablet, Sublingual 0.4 mg SUBLINGUAL Q5M PRN (Reason: Chest Pain) Rx Instructions: do not exceed 3 doses per episode podzndphzvjx-fkajdlyv-sbntvw Tablet 1 tab PO DAILY potassium 99 mg Tablet 99 mg PO DAILY mirtazapine 15 mg tablet 15 mg PO BEDTIME furosemide [Lasix] 40 mg Tablet 40 mg PO DAILY sertraline [Zoloft] 50 mg Tablet 50 mg PO DAILY lisinopril 10 mg Tablet 40 mg PO DAILY Qty: 90 3RF amlodipine 10 mg tablet 10 mg PO DAILY Qty: 90 3RF Hold Instructions: hypotension Discontinued testosterone cypionate 200 mg/mL Kit 200 mg SUBCUT Q14D Discharge Orders: Discharge Order (Routine); Ordered 03/25/22 Ordered By: Holger Ortiz Other Ambulatory Orders: Physical Therapy Eval and Treat Outpatient (Order) Timeframe: 3 Days Facility: [facility] - Location: Physical Therapy Ordered By: Holger Ortiz Referrals: [facility] [Provider Group] - 1 week (Blurred vision R eye with CVA) Marialuisa Reynoso MD [Physician] - Any Benavidez MD [Physician] - 03/31/22 2:00 pm (You will be seeing the nurse practitioner at this appointment. ) Discharge Diet: Cardiac and Diabetic Discharge Activity: As per PT/OT instructions Patient Instructions: Aspirin (By mouth), Ischemic Stroke (GEN), Fall Prevention (GEN) Activity Restrictions/Additional Instructions: Please continue aspirin after stroke. Continue Eliquis for atrial fibrillation. Follow-up with your primary doctor and neurologist for additional assessment after stroke. Monitor blood pressures twice daily, write down values to bring to her appointments. Please discontinue testosterone for now as it may sometimes be associated with stroke. Discussed with your doctor and urologist if this medication is safe to resume. Continue to optimize risk factors of stroke with your primary doctor including control of blood pressure and diabetes. Please discuss with your doctor options to help you lose weight. Discuss with your doctor consideration of assessment for sleep apnea with sleep study as untreated sleep apnea may be risk for stroke as well. Please discuss with your primary doctor incidental finding of aberrant right subclavian artery on CT angiogram of the chest. Discuss with your primary doctor follow-up MRI of T1-T2 paravertebral small nodular possibly neurogenic lesion. Discharge Attestations Time Spent in Discharge Care*: greater than 30 min Status at Discharge: Cognitive status at discharge: cognitively intact, Behavioral status at discharge: cooperative, Quality Metrics Clinical Quality Measures [ Cerebrovascular Accident { Contraindication to Antithrombotic: None; antithrombotic prescribed; Contraindication to Anticoagulation: None; anticoagulation prescribed; Contraindication to Statin: None; Statin prescribed;}] Coding Level of Care Code Acute Chg FW DC note Diagnoses Acute ischemic stroke I63.9 Chest pain R07.9 HTN (hypertension) I10
--- NOTE | 2022-03-25 15:23 | PC.NURSE ---
Discussed discharge with patient and spouse with follow up appointments and medication. Patient is to call and make an appointment with Neurology. Verbalized understanding.
[2022-03-25 15:29] VITALS: BP 141/80; PULSE 80; RESP 18; TEMP 36.5; O2SAT 95
== END 2022-03-25 15:31 | disposition home or self-care (01) | DRG 65 ==
LOC: ER 19:45 → MEDSURG 21:16
PROVIDERS: Admitting Provider Family Medicine; Emergency Provider Emergency Medicine; PCP Emergency Medicine; Visit Provider Internal Medicine
DX: I63.9 Cerebral infarction, unspecified (principal); G81.01 Flaccid hemiplegia affecting right dominant side; J90 Pleural effusion, not elsewhere classified; I48.20 Chronic atrial fibrillation, unspecified; I10 Essential (primary) hypertension; I48.91 Unspecified atrial fibrillation; I25.10 Atherosclerotic heart disease of native coronary artery without angina pectoris; R29.714 NIHSS score 14; R47.81 Slurred speech; R20.8 Other disturbances of skin sensation; R29.810 Facial weakness; R07.9 Chest pain, unspecified; E11.9 Type 2 diabetes mellitus without complications; Z98.84 Bariatric surgery status; Z90.49 Acquired absence of other specified parts of digestive tract; Z79.01 Long term (current) use of anticoagulants; Z95.810 Presence of automatic (implantable) cardiac defibrillator
CPT/HCPCS: 36415; 36416; 70450; 70496; 70498; 71275; 74174; 80048; 80053; 80061; 81003; 82962; 83036; 83735; 84100; 84484; 85025; 85610; 85730; 92523; 92610; 93005; 96372; 97110; 97116; 97162; 97166; 97530; 97535; 99214; 99285; C8924; C9113; J1650; J2270; Q9967

== ENCOUNTER 2022-03-27 13:01 | Observation (INO) | payer MEDICARE, MEDICAID, SELFPAY ==
[2022-03-27] VITALS (14 sets, daily range): BP systolic 120–165; BP diastolic 60–86; PULSE 64–85; RESP 13–23; TEMP 36.5; O2SAT 92–96; BMI 42.1
--- NOTE | 2022-03-27 13:27 | XR_ITS ---
WS: [id number] Portable PA upright chest, 03/27/2022 Clinical Data: Chest pain Comparison: Portable chest, 03/14/2022. Findings: No nodules, masses or effusions are seen. The heart is normal. The pulmonary vascularity is not increased. No pneumonia or pneumothorax is seen. The 2-lead pacemaker is in good position formerly [facility]. There are small surgical sutures at the medial aspect of the left diaphragm. XR/XR chest 1V portable [id number] Impression: Cardiac pacemaker.
--- NOTE | 2022-03-27 13:31 | ECG_ITS ---
[facility] Test Date: 2022-03-27 Pat Name: Jeremie Alexander Department: Room: Gender: Male Stock Holder: : 1960 Requested By: Rodrigo Romero Order Number: [id number] Lucinda MD: Jose Ugarte M.D. Measurements Intervals [place] Rate: 66 P: 23 MN: 136 QRS: 6 QRSD: 105 T: 17 QT: 301 QTc: 316 Interpretive Statements SINUS RHYTHM LOW QRS VOLTAGE IN PRECORDIAL LEADS [QRS DEFLECTION < 1.0 mV IN CHEST LEADS] NONSPECIFIC T-WAVE ABNORMALITY Compared to ECG 03/24/2022 03:00:03 Low QRS voltage now present T-wave abnormality now present Electronically Signed On 03-27-2022 17:44:32 CDT by Jose Ugarte M.D. [id number]
--- NOTE | 2022-03-27 13:59 | PC.NURSE ---
pt reports his right side is numb again. Reports recent hospitalization for same thing and recovered while inpatient. Reports this morning his right side began going numb again and having chest pain. Drift noted in right leg and right arm. Pt reports sensory deficits to right leg and right arm, denies being able to feel touch at all on the right side. Face appears symmetrical.
--- NOTE | 2022-03-27 14:05 | W.ED.WEAKNES ---
HPI - Weakness General: Chief complaint: Weakness Stated complaint: Chest pains, Ride side numbness Time Seen by Provider: 03/27/22 13:56 Source: patient and family Limitations: no limitations History of Present Illness: This patient presented to the emergency department [facility] by his spouse. He comes from home. He states that somewhere around 1030 this morning or thereabouts he noted right sided numbness. He states the symptoms are similar to that he experienced last week when he was admitted to the hospital however last week he had weakness in his right side which he does not have today. He states he also has left-sided chest pain which began about the same time. He has a history of coronary disease had multiple stents placed previously. He is also had a history of TIAs according to his spouse. He states that he had the above symptoms when he was admitted to the hospital this past week but those recovered by the time he was admitted and he did not require any thrombolytic or other medications. It should be noted however that he does take DOAC chronically because of his atrial fibrillation which would have precluded any kind of thrombolytic therapy. He denies any fevers or chills. He did had 1 episode of loose stool this morning. No one else is ill at home. MD Complaint: numbness (right side) Onset (ago): hour(s) (3.5) Location: RUE, RLE and face Severity: mild Quality: numbness Associated symptoms: Reports chest pain and headache(s); Denies chills, confusion, dysuria, easy bruising, fever(s), nausea, syncope or vomiting Review of Systems Const: Denies: fever(s) or chills Eyes: Denies: change in vision or blurry vision ENMT: Denies: throat pain, odynophagia, nasal discharge or nasal congestion Card: Reports: chest pain and irregular heart rhythm; Denies: palpitations, edema, syncope or pre-syncope Resp: Denies: dyspnea, productive cough or non-productive cough GI: Reports: diarrhea; Denies: abdominal pain, nausea, vomiting, hematemesis or hematochezia : Denies: flank pain, difficulty urinating, dysuria or urinary frequency Musc: Denies: neck pain, back pain, extremity pain or extremity swelling Skin/Breast: Denies: rash, pruritus or erythema Neuro: Reports: headache(s) and numbness in extremities; Denies: weakness in extremities, dizziness, vertigo, confusion, Slurred speech present or seizure-like activity Psych: Denies: anxiety, depression or mood swings Phu/Lymph: Denies: easy bruising or easy bleeding PFSH ED PFSH: Medical History Afib Atrial fibrillation Back pain CAD (coronary artery disease) Chest pain Chest pain Chronic anticoagulation Diabetes Flu-like symptoms History of posttraumatic stress disorder (PTSD) HTN (hypertension) Hypertensive urgency Major depressive disorder, recurrent severe without psychotic features Pacemaker Pneumonia SSS (sick sinus syndrome) Syncope Tachycardia Transaminitis Surgical History Gastric banding status S/P placement of cardiac pacemaker Status post cholecystectomy Family History Father CAD (coronary artery disease) Mother Cancer Social History Smoking and tobacco status: never smoked Alcohol intake: never Household members: spouse Housing: House Physical Exam Narrative: EXAM NARRATIVE: The patient is alert. He has a flat affect with a monotonous voice. Makes good eye contact. Const: COMMON NORMALS: patient oriented x3 and alert GENERAL APPEARANCE: cooperative NUTRITIONAL APPEARANCE: overweight ORIENTATION/CONSCIOUSNESS: Yes awake, Yes oriented to person and Yes oriented to place HENMT: COMMON NORMALS: normocephalic, atraumatic, Normal nasal mucous membranes and turbinates present, moist oral mucous membranes and oropharynx normal HEAD & SCALP: normocephalic and atraumatic FACE & SINUS: normal facial exam and sinuses nontender NOSE: Normal nasal mucous membranes and turbinates present Eye: COMMON NORMALS: Equal, round and reactive pupils present, EOMs intact bilaterally, conjunctivae normal and no scleral icterus CONJUNCTIVA: Yes conjunctivae normal PUPIL: Yes Equal, round and reactive pupils present Neck/C-Spine: COMMON NORMALS: full ROM, no lymphadenopathy, supple, no JVD and No carotid bruits Chest: COMMONS NORMALS: normal inspection of the chest OTHER: Tenderness to palpation around the left chest wall. No ecchymosis. No rash. Resp: COMMON NORMALS: normal respiratory effort, No retractions, No use of accessory muscles and clear to auscultation bilaterally EFFORT & INSPECTION: Yes able to speak in complete sentences AUSCULTATION: clear to auscultation bilaterally Cardio: COMMON NORMALS: no JVD, No murmurs present (Cardio) and Peripheral pulses 2+ throughout RHYTHM: abnormal rhythm irregularly irregular PERIPHERAL PULSES: Peripheral pulses 2+ throughout GI: COMMON NORMALS: Normal to inspection, nondistended, normoactive bowel sounds present, Soft to palpation, non-tender and no masses PALPATION: Yes Soft to palpation : COMMON NORMALS: Yes no CVA tenderness BLADDER/KIDNEY EXAM: Yes no CVA tenderness Back/Pelvis: COMMON NORMALS: no CVA tenderness, thoracic and lumbar spine normal to inspection, no thoracic nor lumbar tenderness and straight leg raise negative bilaterally Extremity: COMMON NORMALS: normal to inspection, full ROM, capillary refill normal, no calf tenderness and no pedal edema Neuro: COMMON NORMALS: patient oriented x3 and moves all extremities SENSORIUM/ORIENTATION: Yes alert, Yes oriented to person and Yes oriented to place SPEECH: speech normal SENSORY EXAM: Yes extremities (Loss of sensation to light touch upper extremity and right lower extremity ) MOTOR EXAM: 5/5 motor strength present throughout, Pronator motor function not present and Normal motor muscle tone present throughout Psych: COMMON NORMALS: mental status grossly normal and speech normal SPEECH: Yes normal speech MOOD & AFFECT: Yes Flat affect present Skin: COMMON NORMALS: no rashes or lesions noted, no wounds and turgor normal GENERAL SKIN EXAM: no rashes or lesions noted and turgor normal Course Reevaluation(s): Reevaluation #1: At the time of my initial intake his NIH score is essentially 2 for sensory loss on the right side. He is not currently considered a candidate for thrombolytic therapy given his exclusion of being on a direct acting oral anticoagulant. Time: 14:16 Reevaluation #2: CT scan is reassuring at that there is no evidence of acute hemorrhage or other acute changes noted. His exam is unchanged he still has right-sided sensory loss. Time: 15:47 Consultations: Consultation #1: Discussed with Dr. Medley who is the hospitalist who cared for him at his last hospitalization we reviewed his past history as well as his current findings. We will discuss with neurology as well. Time: 15:55 Consultation #2: Discussed with Dr. Reynoso. She voiced the opinion that lacunar infarcts are really disease that not amenable to treatment other than hydration and blood pressure control. She agrees that there is no indication whatsoever for consideration for thrombolytic therapy. Time: 16:08 Consultation #3: Discussed with Dr. Dowling who agrees to admission Time: 16:57 Vital Signs: Vital signs: Vital Signs Temperature 97.7 F 03/27/22 13:13 Pulse Rate 68 03/27/22 16:00 Respiratory Rate 14 03/27/22 16:00 Blood Pressure 165/75 03/27/22 16:00 Pulse Oximetry 93 03/27/22 16:00 Oxygen Delivery Me thod 03/27/22 16:00 MDM - Weakness Medical Decision Making Gentleman who presents to our emergency department. He presents with right-sided sensory loss. Has a history of chronic atrial fibrillation with a controlled ventricular response and a pacemaker. Previous admission recently for similar symptoms to include right-sided weakness which resolved. Work-up today does not reveal any new findings on noncontrasted CT scan. He does have a slight elevation in his troponin but likely consistent with his chronic atrial fibrillation. Not a candidate for thrombolytic therapy given the nature of his infarct, he has concomitant DOAC use etc. Case was reviewed with neurology who agreed current therapy and recommended Place in observation and supportive care. Medical Records I reviewed the patient's medical records. Lab Data I reviewed the patient's lab results. : 03/27/22 14:40 03/27/22 14:40 Radiology Impressions Chest X-Ray 03/27/22 13:27 Impression: Cardiac pacemaker. Head CT 03/27/22 14:13 IMPRESSION: No acute intracranial abnormality. Chronic microvascular ischemic changes. Laboratory Results WBC 5.5 10^3/uL (4.0-10.0) 03/27/22 14:40 RBC 4.65 10^6/uL (4.1-5.3) 03/27/22 14:40 Hgb 15.3 g/dL (11.7-16.6) 03/27/22 14:40 Hct 44.7 % (42.0-52.0) 03/27/22 14:40 MCV 96.1 fl (80-94) H 03/27/22 14:40 MCH 32.9 pg (28.0-34.0) 03/27/22 14:40 MCHC 34.2 g/dL (30.0-36.0) 03/27/22 14:40 RDW 13.3 % (12.1-15.1) 03/27/22 14:40 Plt Count 215 10^3/cmm (130-400) 03/27/22 14:40 MPV 10.8 fL (7.4-10.4) H 03/27/22 14:40 Neut % (Auto) 68.7 % 03/27/22 14:40 Lymph % (Auto) 20.4 % 03/27/22 14:40 Will % (Auto) 9.3 % 03/27/22 14:40 Eos % (Auto) 0.9 % 03/27/22 14:40 Baso % (Auto) 0.5 % 03/27/22 14:40 Neut # (Auto) 3.76 10^3/uL (1.8-7.7) 03/27/22 14:40 Lymph # (Auto) 1.1 10^3/uL (0.8-4.8) 03/27/22 14:40 Will # (Auto) 0.5 10^3/uL (0.2-0.9) 03/27/22 14:40 Eos # (Auto) 0.1 10^3/uL (0.0-0.8) 03/27/22 14:40 Baso # (Auto) 0.0 10^3/uL (0.0-0.1) 03/27/22 14:40 Nucleated RBC % (auto) 0 % 03/27/22 14:40 Nucleated RBCs # 0.0 /100WBC 03/27/22 14:40 PT 14.00 SECONDS (12.1-14.9) 03/27/22 14:40 INR 1.04 (0.8-1.2) 03/27/22 14:40 APTT 27.9 SECONDS (23.9-36.7) 03/27/22 14:40 Sodium 144 mmol/L (136-145) 03/27/22 14:40 Potassium 4.0 mmol/L (3.5-5.1) 03/27/22 14:40 Chloride 105 mmol/L (98-107) 03/27/22 14:40 Carbon Dioxide 29 mmol/L (22-29) 03/27/22 14:40 Anion Gap 14.0 (5-19) 03/27/22 14:40 BUN 12 mg/dL (8-23) 03/27/22 14:40 Creatinine 1.0 mg/dL (0.7-1.2) 03/27/22 14:40 GFR Calculation 76.2 mL/min (90-130) L 03/27/22 14:40 Glucose 117 mg/dL (65-115) H 03/27/22 14:40 POC Glucose 106 mg/dL (70-110) 03/27/22 14:38 Calculated Osmolality 299 mOsm/kg (285-295) H 03/27/22 14:40 Calcium 9.4 mg/dL (8.5-10.5) 03/27/22 14:40 Total Bilirubin 0.5 mg/dL (0.15-1.2) 03/27/22 14:40 AST 33 U/L (0-40) 03/27/22 14:40 ALT 30 U/L (0-41) 03/27/22 14:40 Alkaline Phosphatase 139 U/L (40-130) H 03/27/22 14:40 Troponin T Gen 5 ng/L 17 ng/L (0-15) H 03/27/22 14:40 Total Protein 6.6 g/dL (6.6-8.7) 03/27/22 14:40 Albumin 4.3 g/dL (3.5-5.2) 03/27/22 14:40 Globulin 2.3 g/dL (1.3-4.6) 03/27/22 14:40 Urine Color Yellow (Yellow) 03/27/22 16:04 Urine Appearance Clear (CLEAR) 03/27/22 16:04 Urine pH 6.5 (5-7) 03/27/22 16:04 Ur Specific [place] 1.015 (1.005-1.030) 03/27/22 16:04 Urine Protein 1+ (Negative) H 03/27/22 16:04 Urine Glucose (UA) Norm (Normal) 03/27/22 16:04 Urine Ketones 1+ (Negative) H 03/27/22 16:04 Urine Blood Neg (Negative) 03/27/22 16:04 Urine Nitrate Negative (Negative) 03/27/22 16:04 Urine Bilirubin 1+ (Negative) H 03/27/22 16:04 Urine Urobilinogen 8 mg/dL (Negative) H 03/27/22 16:04 Ur Leukocyte Esterase 1+ (Negative) H 03/27/22 16:04 Urine RBC 0-4 /hpf (0-2) H 03/27/22 16:04 Urine WBC 0-4 /hpf (0-5) H 03/27/22 16:04 Ur Squamous Epith Cells 0-4 /hpf (0-5) H 03/27/22 16:04 Calcium Oxalate Crystal 1 /hpf 03/27/22 16:04 Amorphous Sediment Not Reportable 03/27/22 16:04 Urine Bacteria None /hpf (NONE) 03/27/22 16:04 EKG Data EKG 1: I personally reviewed and interpreted this EKG as follows: EKG interpretation time: 14:42 Interpretation: EKG interpreted revealed paced rhythm at [address]-T wave changes noted at this time.Essentially unchanged from prior tracings within the department. Discharge Plan Discharge Patient Disposition: Placed in Observation Clinical Impression: Lacunar infarction, Chest pain, Atrial fibrillation, chronic Condition: Stable Prescriptions: No Action rosuvastatin 20 mg tablet 20 mg PO QAM hydroxyzine HCl 25 mg tablet 25 mg PO BID PRN (Reason: Anxiety) melatonin 5 mg capsule 5 mg PO BEDTIME metoprolol succinate 25 mg tablet extended release 24 hr 25 mg PO BID tamsulosin 0.4 mg Capsule 0.4 mg PO QAM ferrous sulfate 325 mg (65 mg iron) Tablet 325 mg PO BID ranolazine 500 mg Tablet Extended Release 12 Hr 500 mg PO BID Eliquis 5 mg Tablet 5 mg PO BID quetiapine 100 mg tablet 100 mg PO BEDTIME risperidone 2 mg tablet 3 mg PO BEDTIME nitroglycerin [Nitrostat] 0.4 mg Tablet, Sublingual 0.4 mg SUBLINGUAL Q5M PRN (Reason: Chest Pain) Rx Instructions: do not exceed 3 doses per episode [id number]-[id number] Tablet 1 tab PO DAILY mirtazapine 15 mg tablet 15 mg PO BEDTIME Aspir-81 81 mg Tablet,Delayed Release (Dr/Ec) 81 mg PO QAM lisinopril 40 mg tablet 40 mg PO QAM potassium gluconate 595 mg (99 mg) Tablet 595 mg PO QAM amlodipine 10 mg tablet 10 mg PO BEDTIME furosemide [Lasix] 40 mg Tablet 40 mg PO QAM sertraline [Zoloft] 50 mg Tablet 50 mg PO QAM Referrals: Livia Ridley MD [Primary Care Provider] - Coding Level of Care Code ED Director Of Nurses Registry for Chg Fwd Exam Comprehensive
--- NOTE | 2022-03-27 14:13 | CTR_ITS ---
PROCEDURE INFORMATION: Exam: CT Head Without Contrast Exam date and time: 03/27/2022 2:48 PM Age: 61 years old Clinical indication: Patient HX: Chest pain, RT side pain; Additional info: Symptoms of acute stroke TECHNIQUE: Imaging protocol: Computed tomography of the head without contrast. Radiation optimization: All CT scans at this facility use at least one of these dose optimization techniques: automated exposure control; mA and/or kV adjustment per patient size (includes targeted exams where dose is matched to clinical indication); or iterative reconstruction. COMPARISON: CT head wo con* [id number] 03/24/2022 10:53 PM RADIATION DOSE METRICS: Total DLP (mGy-cm): 1154.58 FINDINGS: Brain: There are mild periventricular and subcortical lucencies consistent with chronic microvascular ischemic changes.The sinclair-white differentiation is maintained. No hemorrhage. No edema. Cerebral ventricles: No ventriculomegaly. Paranasal sinuses: Visualized sinuses are unremarkable. No fluid levels. Mastoid air cells: Visualized mastoid air cells are well aerated. Bones/joints: Unremarkable. No acute fracture. Soft tissues: Unremarkable. CT/CT head wo con* [id number] IMPRESSION: No acute intracranial abnormality. Chronic microvascular ischemic changes.
--- NOTE | 2022-03-27 14:33 | ECG_ITS ---
[facility] Test Date: 2022-03-27 Pat Name: Jeremie Alexander Department: Room: Gender: Male Health Services Rn: : 1960 Requested By: Vincent Kendrick Order Number: [id number] Lucinda MD: Jose Ugarte M.D. Measurements Intervals [place] Rate: 69 P: 180 [place]: 168 QRS: -5 QRSD: 102 T: 1 QT: 315 QTc: 337 Interpretive Statements ELECTRONIC ATRIAL PACEMAKER LOW QRS VOLTAGE IN PRECORDIAL LEADS [QRS DEFLECTION < 1.0 mV IN CHEST LEADS] NONSPECIFIC T-WAVE ABNORMALITY Compared to ECG 03/27/2022 13:31:45 Sinus rhythm no longer present T-wave abnormality still present Electronically Signed On 03-27-2022 17:43:49 CDT by Jose Ugarte M.D. [id number]
[2022-03-27 14:49] LABS: Basophils % 0.5 %; Eosinophils # 0.1 10^3/uL (0.0-0.8); Eosinophils % 0.9 %; Hematocrit 44.7 % (42.0-52.0); Hemoglobin 15.3 g/dL (11.7-16.6); Lymphocytes # 1.1 10^3/uL (0.8-4.8); Lymphocytes % 20.4 %; Mean Corpuscular HGB Conc 34.2 g/dL (30.0-36.0); Mean Corpuscular Hemoglobin 32.9 pg (28.0-34.0); Mean Corpuscular Volume 96.1 fl (80-94); Mean Platelet Volume 10.8 fL (7.4-10.4); Monocytes # 0.5 10^3/uL (0.2-0.9); Monocytes % 9.3 %; Neutrophils # 3.76 10^3/uL (1.8-7.7); Neutrophils % 68.7 %; Nucleated Red Blood Cells % 0 %; Platelet Count 215 10^3/cmm (130-400); Red Blood Count 4.65 10^6/uL (4.1-5.3); Red Cell Distribution Width 13.3 % (12.1-15.1); White Blood Count 5.5 10^3/uL (4.0-10.0)
[2022-03-27 14:55] LABS: Glucose Point of Care 106 mg/dL (70-110)
[2022-03-27 15:02] LABS: INR 1.04 (0.8-1.2)
[2022-03-27 15:03] LABS: Partial Thromboplastin Time 27.9 SECONDS (23.9-36.7)
[2022-03-27 15:07] LABS: Alanine Aminotransferase 30 U/L (0-41); Albumin Level 4.3 g/dL (3.5-5.2); Alkaline Phosphatase 139 U/L (40-130); Aspartate Amino Transferase 33 U/L (0-40); Blood Urea Nitrogen 12 mg/dL (8-23); Calcium 9.4 mg/dL (8.5-10.5); Carbon Dioxide 29 mmol/L (22-29); Chloride 105 mmol/L (98-107); Globulin 2.3 g/dL (1.3-4.6); Glomerular Filtration Rate 76.2 mL/min (90-130); Glucose 117 mg/dL (65-115); Osmolality Calculated 299 mOsm/kg (285-295); Sodium 144 mmol/L (136-145); Total Bilirubin 0.5 mg/dL (0.15-1.2); Total Protein 6.6 g/dL (6.6-8.7)
[2022-03-27 15:14] LABS: Troponin T (5th) Once 17 ng/L (0-15)
[2022-03-27] MEDS: morphine 4 mg/mL SDV 1 mL IVP ×2 (15:54→17:51)
[2022-03-27 16:15] LABS: Bilirubin Urine 1+ (Negative); Blood Urine Neg (Negative); Glucose Urine UA Norm (Normal); Ketones Urine 1+ (Negative); Nitrate Urine Negative (Negative); Protein Urine 1+ (Negative); Specific Gravity, Urine 1.015 (1.005-1.030); Urine Appearance Clear (CLEAR); Urine Color Yellow (Yellow); pH Urine 6.5 (5-7)
[2022-03-27 16:16] LABS: Add Urine Microscopic? YES; Leukocyte Esterase Urine 1+ (Negative); Urobilinogen Urine 8 mg/dL (Negative)
[2022-03-27 16:26] LABS: Add Urine Culture? No; Calcium Oxalate Crystals Urine 1 /hpf; RBC Urine 0-4 /hpf (0-2); Squamous Epithelial Cell Urine 0-4 /hpf (0-5); WBC Urine 0-4 /hpf (0-5)
--- NOTE | 2022-03-27 18:24 | PC.NURSE ---
report called to AFSHIN Bhardwaj on Med Surg. Room is not currently ready for pt, they will call ED when available
--- NOTE | 2022-03-27 18:56 | PC.NURSE ---
Report given to AFSHIN Marrero
[2022-03-27] MEDS: fentaNYL 50 mcg/mL INJ 2mL IVP (19:26)
[2022-03-27] MEDS: aspirin 325 mg Tablet PO (21:51)
[2022-03-27] MEDS: quetiapine 100 mg Tablet PO (21:51)
[2022-03-27] MEDS: mirtazapine 15 mg Tablet PO (21:52)
[2022-03-27] MEDS: enoxaparin 40 mg/0.4 mL Syringe SUBCUT (21:53)
[2022-03-27] MEDS: risperiDONE 2 mg Tablet 3 MG PO (21:54)
[2022-03-27] MEDS: sodium chloride 0.9% 1,000 ML 75 ML IV (21:55)
--- NOTE | 2022-03-27 22:30 | P.HP_ITS ---
Providers/Chief Complaint Admitting Physician: Robert Sevilla DO Primary Care Provider: Livia Ridley MD Chief Complaint: Chest pains, Ride side pain History of Present Illness Jeremie Alexander is a 61 year old male s/p recent admit for CVA presents 2 days post discharge with recurrent right sided sensory deficit. He also complains of chest pain. Left sided at rest. There has been no radiographic evidence of stroke. Follow-up CT did not show subacute stroke. Unable to perform MRI due to pacemaker. Agree that it is probably a small lacunar stroke with sensory deficit. Patient reports hx of 10 stents. His last one was 9 mo ago. He moved here 2 weeks ago from [facility]. last admission work-up ensued showed an echo that was normal EF. No diastolic dysfunction and no right-sided heart failure. Review of Systems Const: Denies: fever(s) or chills Eyes: Denies: change in vision or blurry vision ENMT: Denies: throat pain, odynophagia, nasal discharge or nasal congestion Card: Reports: chest pain; Denies: palpitations, edema, syncope or pre-syncope Resp: Denies: dyspnea, productive cough or non-productive cough GI: Reports: diarrhea; Denies: abdominal pain, nausea, vomiting, hematemesis or hematochezia : Denies: flank pain, difficulty urinating, dysuria or urinary frequency Musc: Denies: neck pain, back pain, extremity pain or extremity swelling Skin/Breast: Denies: rash, pruritus or erythema Neuro: Reports: headache(s) and numbness in extremities; Denies: weakness in extremities, dizziness, vertigo, confusion, Slurred speech present or seizure-like activity Psych: Denies: anxiety, depression or mood swings Phu/Lymph: Denies: easy bruising or easy bleeding Medications/Allergies Home Medications Medication Instructions Recorded Confirmed Last Taken Type apixaban 5 mg tablet (Eliquis) 5 mg PO BID 11/23/20 03/27/22 03/27/22 History ferrous sulfate 325 mg (65 mg 325 mg PO BID 11/23/20 03/27/22 03/27/22 History iron) tablet ranolazine 500 mg tablet,extended 500 mg PO BID 11/23/20 03/27/22 03/27/22 History release,12 hr tamsulosin 0.4 mg capsule 0.4 mg PO QAM 11/23/20 03/27/22 03/27/22 History xpzuiyrgegcw-xjzxjqom-lpxlrg tablet 1 tab PO DAILY 10/21/21 03/27/22 03/22/22 History nitroglycerin 0.4 mg sublingual 0.4 mg sublingual Q5M PRN Chest 10/21/21 03/27/22 03/27/22 History tablet (Nitrostat) Pain quetiapine 100 mg tablet 100 mg PO BEDTIME 10/21/21 03/27/22 03/26/22 History risperidone 2 mg tablet 3 mg PO BEDTIME 10/21/21 03/27/22 03/26/22 History furosemide 40 mg tablet (Lasix) 40 mg PO QAM 03/14/22 03/27/22 03/27/22 History sertraline 50 mg tablet (Zoloft) 50 mg PO QAM 03/14/22 03/27/22 03/27/22 History melatonin 5 mg capsule 5 mg PO BEDTIME 03/19/22 03/27/22 03/26/22 History metoprolol succinate 25 mg 25 mg PO BID 03/19/22 03/27/22 03/27/22 History tablet,extended release 24 hr mirtazapine 15 mg tablet 15 mg PO BEDTIME 03/22/22 03/27/22 03/21/22 History aspirin 81 mg tablet,delayed 81 mg PO QAM 03/27/22 03/27/22 03/27/22 History release lisinopril 40 mg tablet 40 mg PO QAM 03/27/22 03/27/22 03/27/22 History potassium gluconate 595 mg (99 mg) 595 mg PO QAM 03/27/22 03/27/22 03/27/22 History tablet celecoxib 200 mg capsule (Celebrex) 200 mg PO DAILY #30 caps 03/28/22 Unknown Rx rosuvastatin 20 mg tablet 20 mg PO BEDTIME #30 tabs 03/28/22 03/27/22 03/27/22 Rx tramadol 50 mg tablet (Ultram) 50 mg PO Q6H PRN pain #20 tabs 03/28/22 Unknown Rx Allergies Allergy/AdvReac Type Severity Reaction Status Date / Time ticagrelor [From Brilinta] Allergy Unknown ALGY-Hives Verified 03/27/22 15:19 trazodone Allergy Unknown ADR-Nightma Verified 03/27/22 15:19 re PFSH Acute PFSH: Medical History (Updated 03/27/22 @ 22:44 by Robert Sevilla DO) Afib Atrial fibrillation Back pain CAD (coronary artery disease) Chest pain Chest pain Chronic anticoagulation Diabetes Flu-like symptoms History of posttraumatic stress disorder (PTSD) HTN (hypertension) Hypertensive urgency Major depressive disorder, recurrent severe without psychotic features Pacemaker Pneumonia SSS (sick sinus syndrome) Syncope Tachycardia Transaminitis Surgical History Gastric banding status S/P placement of cardiac pacemaker Status post cholecystectomy Family History Father CAD (coronary artery disease) Mother Cancer Social History Smoking and tobacco status: never smoked Alcohol intake: never Household members: spouse Housing: House Vitals/I&O/Wt Last Vital Signs Temp 97.7 F 03/27/22 20:42 Pulse 65 03/27/22 20:42 Resp 17 03/27/22 20:42 BP 151/86 03/27/22 20:42 Pulse Ox 93 03/27/22 20:42 O2 Del Method 03/27/22 20:30 Weight last 48 hrs Weight 107.955 kg Physical Exam Narrative: Obese chronically ill-appearing with underlying psychiatric condition. No acute distress. HEENT head is round normocephalic pupils equal round reactive to light and accommodation. Patient stares at me with limited blinking. Nasal and pharyngeal mucosa moist and pink. Hearing intact. Neck thick no JVD carotid bruits or lymphadenopathy chest rises symmetrically with inspiration heart normal S1-S2 without murmurs clicks gallops or rubs lungs clear to auscultation anteriorly abdomen protuberant no tenderness psychiatric. Patient with limited speech. flat affect. Skin no is or rash. Neuro alert and oriented. Sensory deficit on right arms and legs. ? neglect. Pt would look to his right. Data : 03/27/22 14:40 03/27/22 14:40 CT Head: My impression: No prior strokes seen however appears to have small vessel disease (hyperdense periventicular areas) A&P Assessment and plan (1) Chest pain: EKG no acute changes. Troponin 17. Will monitor and follow trends. Status: Acute (2) Focal sensory loss: This is from prior acute ischemic event. Repeat CT shows no evidence of stroke. With worsening symptoms, Will allow permissive hypertension. Status: Acute (3) Atrial fibrillation, chronic: Stable. Status: Acute (4) Acute ischemic stroke: As above. Status: Acute Plan Overnight observation. Attestations Medical Necessity Statement*: Patient with recent stroke and recurrent chest pain with CAD reported status post 10 stents. Will observe closely since he is at high risk of complications. Coding Level of Care Code Acute [employer] Professor for Chg Fwd Diagnoses Chest pain R07.9 Focal sensory loss R44.9 Atrial fibrillation, chronic I48.20 Acute ischemic stroke I63.9
[2022-03-27] MEDS: morphine 4 mg/mL SDV 1 mL 2 MG IVP (22:45)
[2022-03-28] VITALS (11 sets, daily range): BP systolic 106–153; BP diastolic 72–86; PULSE 65–82; RESP 16–18; TEMP 36.1–36.6; O2SAT 92–96
[2022-03-28] MEDS: morphine 4 mg/mL SDV 1 mL 2 MG IVP ×3 (03:26→13:32)
[2022-03-28] MEDS: sertraline 50 mg Tablet PO (05:41)
[2022-03-28] MEDS: atorvastatin 40 mg Tablet 80 MG PO (05:41)
[2022-03-28] MEDS: FUROsemide 40 mg Tablet PO (05:41)
[2022-03-28] MEDS: tamsulosin 0.4 mg Capsule PO (05:41)
[2022-03-28 06:09] LABS: Glucose Point of Care 78 mg/dL (70-110)
[2022-03-28] MEDS: metoprolol succinate ER (24 HR) 25 mg Tablet PO (09:00)
[2022-03-28] MEDS: ranolazine (12HR) 500 mg Tablet PO (09:00)
[2022-03-28] MEDS: apixaban 5 mg Tablet PO (09:01)
[2022-03-28] MEDS: aspirin 325 mg Tablet PO (09:01)
[2022-03-28] MEDS: ferrous sulfate EC 325 mg Tablet PO (09:01)
[2022-03-28] MEDS: docusate sodium 100 mg Capsule PO (09:01)
[2022-03-28] MEDS: sodium chloride 0.9% 1,000 ML 75 ML IV (11:57)
[2022-03-28 16:24] LABS: Troponin T (5th) Once 16 ng/L (0-15)
[2022-03-28 16:58] LABS: Glucose Point of Care 128 mg/dL (70-110)
--- NOTE | 2022-04-03 15:52 | P.DS_ITS ---
Discharge Providers Date of Admission: 03/27/22 16:59 Date of Discharge: 03/28/22 Attending Provider at Admission: Robert Sevilla DO Attending Provider at Discharge: Robert Sevilla DO Primary Care Provider: Livia Ridley MD Diagnoses at Discharge Discharge Diagnosis (1) Chest pain: Status: Acute (2) Focal sensory loss: Status: Acute (3) Atrial fibrillation, chronic: Status: Acute (4) Acute ischemic stroke: Status: Inactive Reason for Visit Reason for Visit: Chest pains, Ride side pain Brief History: Please see H and P Hospital Course Hospital Course Pt admited due to right arm weakness and continued numbness after diagnosed with CVA a few days prior. CT scan head did not indicate stroke however unable to perform MRI due to pacemaker. The weakness was resolved upon admission. Recommend permissive HTN post stroke. He also complained of chest pain. His troponin was negative. He described the pain as shart. Exam demonstrated pain on palpation. It was felt the pt has costrocondritis and placed on Celebrex and recommended to establish care. Physical Exam Narrative: NAD, central obesity. H: reg without loud murmur L: Clear no w/r/r/ chest: tenderness on palp of costocondral spaces on left. A: protruding, soft nt/nd nl BS E: no sign edema Discharge Data Studies Completed and Pending Completed Studies During Hospitalization Category Date Time Status CT head wo con* [id number] Stat Cat Scan 03/27/22 14:13 Completed XR chest 1V portable [id number] Stat Exams 03/27/22 13:27 Completed Radiology Impressions Chest X-Ray 03/27/22 13:27 Impression: Cardiac pacemaker. Head CT 03/27/22 14:13 IMPRESSION: No acute intracranial abnormality. Chronic microvascular ischemic changes. Laboratory Results WBC 5.5 10^3/uL (4.0-10.0) 03/27/22 14:40 RBC 4.65 10^6/uL (4.1-5.3) 03/27/22 14:40 Hgb 15.3 g/dL (11.7-16.6) 03/27/22 14:40 Hct 44.7 % (42.0-52.0) 03/27/22 14:40 MCV 96.1 fl (80-94) H 03/27/22 14:40 MCH 32.9 pg (28.0-34.0) 03/27/22 14:40 MCHC 34.2 g/dL (30.0-36.0) 03/27/22 14:40 RDW 13.3 % (12.1-15.1) 03/27/22 14:40 Plt Count 215 10^3/cmm (130-400) 03/27/22 14:40 MPV 10.8 fL (7.4-10.4) H 03/27/22 14:40 Neut % (Auto) 68.7 % 03/27/22 14:40 Lymph % (Auto) 20.4 % 03/27/22 14:40 [place] % (Auto) 9.3 % 03/27/22 14:40 Eos % (Auto) 0.9 % 03/27/22 14:40 Baso % (Auto) 0.5 % 03/27/22 14:40 Neut # (Auto) 3.76 10^3/uL (1.8-7.7) 03/27/22 14:40 Lymph # (Auto) 1.1 10^3/uL (0.8-4.8) 03/27/22 14:40 [place] # (Auto) 0.5 10^3/uL (0.2-0.9) 03/27/22 14:40 Eos # (Auto) 0.1 10^3/uL (0.0-0.8) 03/27/22 14:40 Baso # (Auto) 0.0 10^3/uL (0.0-0.1) 03/27/22 14:40 Nucleated RBC % (auto) 0 % 03/27/22 14:40 Nucleated RBCs # 0.0 /100WBC 03/27/22 14:40 PT 14.00 SECONDS (12.1-14.9) 03/27/22 14:40 INR 1.04 (0.8-1.2) 03/27/22 14:40 APTT 27.9 SECONDS (23.9-36.7) 03/27/22 14:40 Sodium 144 mmol/L (136-145) 03/27/22 14:40 Potassium 4.0 mmol/L (3.5-5.1) 03/27/22 14:40 Chloride 105 mmol/L (98-107) 03/27/22 14:40 Carbon Dioxide 29 mmol/L (22-29) 03/27/22 14:40 Anion Gap 14.0 (5-19) 03/27/22 14:40 BUN 12 mg/dL (8-23) 03/27/22 14:40 Creatinine 1.0 mg/dL (0.7-1.2) 03/27/22 14:40 GFR Calculation 76.2 mL/min (90-130) L 03/27/22 14:40 Glucose 117 mg/dL (65-115) H 03/27/22 14:40 POC Glucose 128 mg/dL (70-110) H 03/28/22 16:54 Calculated Osmolality 299 mOsm/kg (285-295) H 03/27/22 14:40 Calcium 9.4 mg/dL (8.5-10.5) 03/27/22 14:40 Total Bilirubin 0.5 mg/dL (0.15-1.2) 03/27/22 14:40 AST 33 U/L (0-40) 03/27/22 14:40 ALT 30 U/L (0-41) 03/27/22 14:40 Alkaline Phosphatase 139 U/L (40-130) H 03/27/22 14:40 Troponin T Gen 5 ng/L 16 ng/L (0-15) H 03/28/22 15:52 Total Protein 6.6 g/dL (6.6-8.7) 03/27/22 14:40 Albumin 4.3 g/dL (3.5-5.2) 03/27/22 14:40 Globulin 2.3 g/dL (1.3-4.6) 03/27/22 14:40 Urine Color Yellow (Yellow) 03/27/22 16:04 Urine Appearance Clear (CLEAR) 03/27/22 16:04 Urine pH 6.5 (5-7) 03/27/22 16:04 Ur Specific [place] 1.015 (1.005-1.030) 03/27/22 16:04 Urine Protein 1+ (Negative) H 03/27/22 16:04 Urine Glucose (UA) Norm (Normal) 03/27/22 16:04 Urine Ketones 1+ (Negative) H 03/27/22 16:04 Urine Blood Neg (Negative) 03/27/22 16:04 Urine Nitrate Negative (Negative) 03/27/22 16:04 Urine Bilirubin 1+ (Negative) H 03/27/22 16:04 Urine Urobilinogen 8 mg/dL (Negative) H 03/27/22 16:04 Ur Leukocyte Esterase 1+ (Negative) H 03/27/22 16:04 Urine RBC 0-4 /hpf (0-2) H 03/27/22 16:04 Urine WBC 0-4 /hpf (0-5) H 03/27/22 16:04 Ur Squamous Epith Cells 0-4 /hpf (0-5) H 03/27/22 16:04 Calcium Oxalate Crystal 1 /hpf 03/27/22 16:04 Amorphous Sediment Not Reportable 03/27/22 16:04 Urine Bacteria None /hpf (NONE) 03/27/22 16:04 Vitals Last Vital Signs Temp 97.8 F 03/28/22 17:20 Pulse 67 03/28/22 17:20 Resp 18 03/28/22 17:20 BP 122/78 03/28/22 17:20 Pulse Ox 94 03/28/22 17:20 O2 Del Method 03/28/22 16:00 Discharge Plan Discharge Patient Disposition: Home Condition: Stable Prescriptions: New Celebrex 200 mg capsule 200 mg PO DAILY Qty: 30 0RF Ultram 50 mg tablet 50 mg PO Q6H PRN (Reason: pain) Qty: 20 0RF Continued metoprolol succinate 25 mg tablet extended release 24 hr 25 mg PO BID tamsulosin 0.4 mg Capsule 0.4 mg PO QAM ferrous sulfate 325 mg (65 mg iron) Tablet 325 mg PO BID ranolazine 500 mg Tablet Extended Release 12 Hr 500 mg PO BID quetiapine 100 mg tablet 100 mg PO BEDTIME nitroglycerin [Nitrostat] 0.4 mg Tablet, Sublingual 0.4 mg SUBLINGUAL Q5M PRN (Reason: Chest Pain) Rx Instructions: do not exceed 3 doses per episode aspirin 81 mg Tablet,Delayed Release (Dr/Ec) 81 mg PO QAM lisinopril 40 mg tablet 40 mg PO QAM potassium gluconate 595 mg (99 mg) Tablet 595 mg PO QAM sertraline [Zoloft] 50 mg Tablet 50 mg PO QAM Changed rosuvastatin 20 mg tablet 20 mg PO BEDTIME Qty: 30 0RF Discontinued hydroxyzine HCl 25 mg tablet 25 mg PO BID PRN (Reason: Anxiety) amlodipine 10 mg tablet 10 mg PO BEDTIME No Action amlodipine 10 mg tablet 10 mg PO DAILY Hold Instructions: Doctor's Order hydroxyzine pamoate 25 mg capsule 25 mg PO BID PRN Centrum Silver Men 300-600-300 mcg tablet 1 tab PO DAILY Eliquis 5 mg tablet 5 mg PO BID Qty: 60 5RF melatonin 5 mg capsule 5 mg PO BEDTIME Qty: 30 5RF furosemide [Lasix] 40 mg tablet 40 mg PO QAM Qty: 30 5RF Discharge Orders: Discharge Order (Routine); Ordered 03/28/22 Ordered By: Robert Sevilla Referrals: Livia Ridley MD [Primary Care Provider] - (Please call for a follow-up appointment with Livia Ridley in 4 to 7 days. ) Discharge Diet: Cardiac Discharge Activity: Increase activity as tolerated and As per PT/OT instructions Patient Instructions: Tramadol (By mouth), Celecoxib (By mouth), Chest Pain (GEN), Chest Pain Stoplight Activity Restrictions/Additional Instructions: His chest pain is muscloskeletal. I prescribed Celebrex for pain on a daily basis along with ultram for pain/sharp-stabbing chest pain as described NEEDED. Allow his BP to rise. I stopped a couple of medications allowing for permissive hypertension that will help heal from stroke. Discharge Attestations Time Spent in Discharge Care*: greater than 30 min Status at Discharge: Cognitive status at discharge: cognitively intact , Behavioral status at discharge: cooperative , Quality Metrics Clinical Quality Measures [ No reported AMI, CVA or VTE this stay] Coding Level of Care Code Acute Chg DC note Diagnoses Chest pain R07.9 Focal sensory loss R44.9 Atrial fibrillation, chronic I48.20 Acute ischemic stroke I63.9
== END 2022-03-28 17:29 | disposition home or self-care (01) ==
LOC: ER 16:58 → MEDSURG 18:32
PROVIDERS: Emergency Medicine; Admitting Provider Internal Medicine; Emergency Provider Emergency Medicine; PCP Emergency Medicine; Visit Provider Internal Medicine
DX: R07.9 Chest pain, unspecified (principal); R44.9 Unspecified symptoms and signs involving general sensations and perceptions; I48.20 Chronic atrial fibrillation, unspecified; I63.9 Cerebral infarction, unspecified; Z95.0 Presence of cardiac pacemaker; Z95.5 Presence of coronary angioplasty implant and graft; I25.10 Atherosclerotic heart disease of native coronary artery without angina pectoris; Z79.01 Long term (current) use of anticoagulants; E11.9 Type 2 diabetes mellitus without complications; I10 Essential (primary) hypertension; Z82.49 Family history of ischemic heart disease and other diseases of the circulatory system
CPT/HCPCS: 36415; 36416; 70450; 71045; 80053; 81001; 82962; 84484; 85025; 85610; 85730; 93005; 96372; 96374; 96375; 96376; 97110; 97161; 97166; 99285; G0378; J1650; J2270; J3010; J7030

== ENCOUNTER → 2022-03-31 14:51 | Outpatient (BNVA) | payer MEDICARE, MEDICAID, SELFPAY | PROVIDERS: PCP Nurse Practitioner Family; Visit Provider Nurse Practitioner Family | DX: I48.20 Chronic atrial fibrillation, unspecified (principal); G47.00 Insomnia, unspecified; I10 Essential (primary) hypertension; R35.0 Frequency of micturition; R19.7 Diarrhea, unspecified; R53.1 Weakness | CPT/HCPCS: 81000 ==

== ENCOUNTER 2022-04-01 06:00 | Outpatient (CLI) | payer MEDICARE, MEDICAID, SELFPAY | END 2022-04-01 06:01 | disposition home or self-care (01) | LOC: LAB 04-10 11:39 | PROVIDERS: PCP Nurse Practitioner Family; Visit Provider Nurse Practitioner Family | DX: R19.7 Diarrhea, unspecified (principal) | CPT/HCPCS: 83630; 87493; 87506 ==

== ENCOUNTER 2022-04-08 06:00 | Outpatient (RCR) | payer MEDICARE, MEDICAID, SELFPAY | END 2022-04-08 23:59 | disposition home or self-care (01) | LOC: TPT 06:00 | PROVIDERS: PCP Nurse Practitioner Family; Visit Provider Internal Medicine | DX: I63.9 Cerebral infarction, unspecified (principal) | CPT/HCPCS: 83630; 87493; 87506; 97163 ==

== ENCOUNTER 2022-04-09 06:00 | Outpatient (RCR) | payer MEDICARE, MEDICAID, SELFPAY | END 2022-05-05 23:59 | disposition home or self-care (01) | LOC: TPT 06:00 | PROVIDERS: PCP Nurse Practitioner Family; Visit Provider Internal Medicine | DX: I63.9 Cerebral infarction, unspecified (principal) | CPT/HCPCS: 97110 ==

== ENCOUNTER → 2022-04-28 15:26 | Outpatient (BNVA) | payer MEDICARE, MEDICAID, SELFPAY | PROVIDERS: PCP Nurse Practitioner Family; Visit Provider Family Medicine | DX: M72.2 Plantar fascial fibromatosis (principal); M54.6 Pain in thoracic spine; G89.29 Other chronic pain; M54.9 Dorsalgia, unspecified | CPT/HCPCS: 72072; 72100 ==

== ENCOUNTER 2022-05-04 17:07 | Emergency (ER) | payer MEDICARE, MEDICAID, SELFPAY ==
[2022-05-04 17:15] VITALS: BP 127/89; PULSE 77; RESP 16; TEMP 36.8; O2SAT 99; BMI 42.1
--- NOTE | 2022-05-04 17:35 | XRR_ITS ---
PROCEDURE INFORMATION: Exam: XR Right Shoulder Exam date and time: 05/04/2022 7:57 PM Age: 61 years old Clinical indication: Pain; Shoulder; Right; Additional info: Fall/right shoulder pain TECHNIQUE: Imaging protocol: Radiologic exam of the Right shoulder. Views: 2 or more views. COMPARISON: CR XR chest 1V portable [id number] 03/27/2022 1:34 PM FINDINGS: Bones/joints: Comminuted fracture through the humeral neck with displacement of the humeral neck and shaft. Soft tissues: Normal. XR/XR shoulder RT min 2V* [id number] IMPRESSION: Displaced comminuted fracture of the humeral neck.
--- NOTE | 2022-05-04 19:54 | ED_ITS ---
HPI - Extremity Problem General: Chief complaint: Extremity Injury, Upper Stated complaint: Shoulder in pain Time Seen by Provider: 05/04/22 19:47 History of Present Illness: Patient comes in today for injury to the right upper arm. Patient reports tripping and falling this morning and injuring his arm. Since then patient has been unable to use his right arm. On exam patient has tenderness to the proximal humerus. No obvious deformity. Distal pulses and sensation are intact. Associated symptoms: Deny chest pain, fever(s) or rash Review of Systems Const: Denies: fever(s) Card: Denies: chest pain Resp: Denies: dyspnea Musc: Reports: extremity pain Skin/Breast: Denies: rash PFSH ED PFSH: Medical History Acute ischemic stroke Afib Anxiety and depression Atrial fibrillation Back pain CAD (coronary artery disease) Chest pain Chest pain Chronic anticoagulation Diabetes Flu-like symptoms History of posttraumatic stress disorder (PTSD) HTN (hypertension) Hypertensive urgency Lacunar infarction Major depressive disorder, recurrent severe without psychotic features Pacemaker Pneumonia Psychiatric care SSS (sick sinus syndrome) Syncope Tachycardia Transaminitis Surgical History Gastric banding status S/P placement of cardiac pacemaker Status post cholecystectomy Family History Father CAD (coronary artery disease) Mother Cancer Social History Smoking and tobacco status: former smoker Alcohol intake: never Household members: spouse Housing: House Physical Exam Const: COMMON NORMALS: alert HENMT: COMMON NORMALS: normocephalic HEAD & SCALP: normocephalic Eye: GENERAL EYE: appearance normal, both eyes and all related structures Neck/C-Spine: COMMON NORMALS: full ROM Resp: COMMON NORMALS: normal respiratory effort Cardio: COMMON NORMALS: regular rate RATE: regular rate Extremity: NARRATIVE EXTREMITY EXAM: Anterior tenderness of the right shoulder, reduced range of motion of the right upper arm. RIGHT UPPER EXTREMITY: Yes shoulder joint and Yes upper arm Neuro: SENSORIUM/ORIENTATION: Yes alert Skin: COMMON NORMALS: turgor normal GENERAL SKIN EXAM: turgor normal Course Vital Signs: Vital signs: Vital Signs Temperature 98.2 F 05/04/22 17:15 Pulse Rate 77 05/04/22 17:15 Respiratory Rate 16 05/04/22 17:15 Blood Pressure 127/89 05/04/22 17:15 Pulse Oximetry 99 05/04/22 17:15 Oxygen Delivery Me thod 05/04/22 17:15 MDM - Extremity (Nontraumatic) Medical Decision Making 61-year-old male patient comes in today with injury to the right upper arm. On exam patient has tenderness to the right upper arm. Distal pulses and sensation are intact. Differential diagnosis includes but not limited to dislocation, fracture, contusion, rotator cuff injury. X-ray noted a proximal fracture of the humerus with displacement. Patient was placed in a shoulder immobilizer with recommendations for follow-up with orthopedic surgeon for further treatment and evaluation. Patient reported understanding of care plan was written a prescription for hydrocodone to control pain. Lab Data Radiology Impressions Shoulder X-Ray 05/04/22 17:35 IMPRESSION: Displaced comminuted fracture of the humeral neck. Discharge Plan Discharge Patient Disposition: Home Clinical Impression: Fracture of proximal humerus Qualifiers: Encounter type: initial encounter Fracture type: closed Fracture morphology: other fracture Fracture alignment: displaced Laterality: right Qualified Code(s): S42.291A - Other displaced fracture of upper end of right humerus, initial encounter for closed fracture Condition: Stable Prescriptions: New hydrocodone-acetaminophen 5-325 mg tablet 1 tab PO Q6H PRN (Reason: pain (scale score 7-10)) Qty: 20 0RF Rx Instructions: do not use with tramadol No Action metoprolol succinate 25 mg tablet extended release 24 hr 25 mg PO BID Ultram 50 mg tablet 50 mg PO Q6H PRN (Reason: pain) Qty: 120 0RF ondansetron HCl 4 mg tablet 4 mg PO Q8H PRN (Reason: nausea and vomiting) Qty: 30 0RF omeprazole 20 mg capsule,delayed release(DR/EC) 20 mg PO BID 30 Days Qty: 60 0RF loperamide [Imodium A-D] 2 mg capsule 2 mg PO QID PRN (Reason: loose stool) Qty: 14 0RF hydroxyzine pamoate 25 mg capsule 25 mg PO BID PRN Centrum Silver Men 300-600-300 mcg tablet 1 tab PO DAILY Eliquis 5 mg tablet 5 mg PO BID Qty: 60 5RF melatonin 5 mg capsule 5 mg PO BEDTIME Qty: 30 5RF furosemide [Lasix] 40 mg tablet 40 mg PO QAM Qty: 30 5RF sertraline [Zoloft] 50 mg tablet 50 mg PO QAM Qty: 30 2RF quetiapine 100 mg tablet 100 mg PO BEDTIME Qty: 30 1RF tamsulosin 0.4 mg Capsule 0.4 mg PO QAM ferrous sulfate 325 mg (65 mg iron) Tablet 325 mg PO BID nitroglycerin [Nitrostat] 0.4 mg Tablet, Sublingual 0.4 mg SUBLINGUAL Q5M PRN (Reason: Chest Pain) Rx Instructions: do not exceed 3 doses per episode aspirin 81 mg Tablet,Delayed Release (Dr/Ec) 81 mg PO QAM lisinopril 40 mg tablet 40 mg PO QAM potassium gluconate 595 mg (99 mg) Tablet 595 mg PO QAM rosuvastatin 20 mg tablet 20 mg PO BEDTIME Qty: 30 0RF Discharge Orders: Discharge ED (Routine); Ordered 05/04/22 Ordered By: Stephen Mir Referrals: Tina Go FNP [Primary Care Provider] - Discharge Diet: Usual diet Discharge Activity: Increase activity as tolerated Patient Instructions: Arm Fracture in Adults (ED), Opioid Safety Activity Restrictions/Additional Instructions: Use arm immobilizer for protection of fracture. You may use acetaminophen to control pain and hydrocodone for severe pain. You may use ice or heat for further pain relief. You will need to follow-up with orthopedic surgeon for further treatment and evaluation. Case management will contact you tomorrow to assist with the follow-up appointment. Return to ER for worsening symptoms such as fever greater than 100.4, uncontrolled pain, or new concerns. Coding Level of Care Code ED Upholsterer Apprentice for Anabela Clark
[2022-05-04] MEDS: HYDROcodone-acetaminophen 10-325 mg Tablet 1 TAB PO ×2 (21:10)
[2022-05-04] MEDS: ondansetron 4 MG Tablet PO (21:10)
--- NOTE | 2022-05-05 07:54 | DCPLANNER ---
Addendum entered by Aurora Aguirre 05/08/22 09:58: Patient had a follow up appointment scheduled with ortho - patient did attend appointment. Addendum entered by Aurora Aguirre 05/05/22 15:05: Patient has a follow up appointment scheduled for , May 07, 2022 at 9:00 with Bent at ortho. Clinic will call patient with appointment information. Original Note: liquor department manager had message to schedule a follow up appointment for patient with ortho. liquor department manager sent patients information to the front office staff at ortho. Patients information will be printed and reviewed. Clinic will call patient with appointment information.
== END 2022-05-04 21:07 | disposition home or self-care (01) ==
PROVIDERS: Emergency Provider Nurse Practitioner Family; PCP Nurse Practitioner Family
DX: M79.601 Pain in right arm (principal); I25.10 Atherosclerotic heart disease of native coronary artery without angina pectoris; E11.9 Type 2 diabetes mellitus without complications; I10 Essential (primary) hypertension; Z95.0 Presence of cardiac pacemaker; Z87.891 Personal history of nicotine dependence
CPT/HCPCS: 73030; 99283; Q0162

== ENCOUNTER → 2022-05-07 09:29 | Outpatient (BNVA) | payer MEDICARE, MEDICAID, SELFPAY | PROVIDERS: PCP Nurse Practitioner Family; Referring Provider Nurse Practitioner Family; Visit Provider Student in an Organized Health Care Education/Training Program | DX: S42.291A Other displaced fracture of upper end of right humerus, initial encounter for closed fracture (principal); W01.0XXA Fall on same level from slipping, tripping and stumbling without subsequent striking against object, initial encounter | CPT/HCPCS: 73030; 99203 ==

== ENCOUNTER 2022-05-10 14:00 | Emergency (ER) | payer MEDICARE, MEDICAID, SELFPAY ==
[2022-05-10 14:01] VITALS: BP 142/61; PULSE 103; RESP 12; TEMP 36.6; O2SAT 95; BMI 38.9
--- NOTE | 2022-05-10 14:03 | XRR_ITS ---
PROCEDURE INFORMATION: Exam: XR Right Shoulder Exam date and time: 05/10/2022 2:21 PM Age: 61 years old Clinical indication: Injury or trauma; Fall; Blunt trauma (contusions or hematomas); Shoulder; Right; Additional info: Pain/trauma TECHNIQUE: Imaging protocol: Radiologic exam of the Right shoulder. Views: 2 or more views. COMPARISON: CR XR shoulder RT min 2V* [id number] 05/07/2022 9:46 AM FINDINGS: Bones/joints: Comminuted angulated displaced right humeral neck fracture with overriding of fracture fragments. 2.7 cm displaced humeral head fracture which could represent the greater tuberosity. No obvious glenohumeral dislocation. Soft tissues: Normal. XR/XR shoulder RT min 2V* [id number] IMPRESSION: 1. Comminuted angulated displaced right humeral neck fracture with overriding of fracture fragments. 2. 2.7 cm displaced humeral head fracture which could represent the greater tuberosity. 3. No obvious glenohumeral dislocation.
--- NOTE | 2022-05-10 14:05 | XRR_ITS ---
PROCEDURE INFORMATION: Exam: XR Cervical Spine Exam date and time: 05/10/2022 2:25 PM Age: 61 years old Clinical indication: Injury or trauma; Fall; Blunt trauma; Additional info: Pain trauma TECHNIQUE: Imaging protocol: Radiologic exam of the cervical spine. Views: 2 or 3 views. COMPARISON: CT angio headneck* [id number] 03/22/2022 6:42 PM FINDINGS: Tubes, catheters and devices: Left -sided pacemaker. Bones/joints: Moderate thoracic spondylosis. Soft tissues: Unremarkable. Vasculature: Calcification of the thoracic aorta and/or great vessels consistent with atherosclerotic vessel disease. XR/XR cervical spine 3V* [id number] IMPRESSION: No acute findings.
--- NOTE | 2022-05-10 14:14 | CTR_ITS ---
PROCEDURE INFORMATION: Exam: CT Head Without Contrast Exam date and time: 05/10/2022 2:41 PM Age: 61 years old Clinical indication: Injury or trauma; Fall; Blunt trauma (contusions or hematomas); Additional info: Fall/anticoagulants TECHNIQUE: Imaging protocol: Computed tomography of the head without contrast. Radiation optimization: All CT scans at this facility use at least one of these dose optimization techniques: automated exposure control; mA and/or kV adjustment per patient size (includes targeted exams where dose is matched to clinical indication); or iterative reconstruction. COMPARISON: CT head wo con* [id number] 03/27/2022 2:48 PM RADIATION DOSE METRICS: Total DLP (mGy-cm): 1153.98 FINDINGS: Brain: Severe calcified intracranial atherosclerotic vessel disease. Mild cerebral atrophy and ischemic leukoencephalopathy. Severe calcified intracranial atherosclerotic vessel disease. Cerebral ventricles: No ventriculomegaly. Paranasal sinuses: Visualized sinuses are unremarkable. No fluid levels. Mastoid air cells: Visualized mastoid air cells are well aerated. Bones/joints: Unremarkable. No acute fracture. Soft tissues: Unremarkable. CT/CT head wo con* [id number] IMPRESSION: No acute intracranial findings.
--- NOTE | 2022-05-10 14:15 | ED_ITS ---
HPI - Extremity Problem General: Chief complaint: Extremity Injury, Upper Stated complaint: RIGHT SHOULDER AND NECK PAIN S/P FALL Time Seen by Provider: 05/10/22 14:03 Source: patient Mode of arrival: EMS History of Present Illness: 61-year-old male presents emergency complaining right shoulder pain and neck pain secondary to a fall last night. He states he got dizzy lost his balance and fell. He fell 1 week ago and sustained a comminuted of the humeral head. He is in the sling at this time. He denies loss of consciousness. He is on apixaban for atrial fibrillation. He denies any other injuries. MD Complaint: joint pain Onset (ago): hour(s) Pain Consistency: constant Location: right and upper extremity Quality: sharp Relieving factors: nothing Exacerbating factors: nothing Associated symptoms: Deny chest pain, fever(s), myalgias, rash or short of breath Review of Systems Const: Denies: fever(s) ENMT: Denies: throat pain, ear or mastoid pain, nasal discharge or nasal congestion Card: Denies: chest pain Resp: Denies: dyspnea, productive cough or non-productive cough GI: Denies: abdominal pain, nausea, vomiting, hematemesis, coffee ground emesis, diarrhea, constipation, bloating, hematochezia or melena : Denies: flank pain, dysuria, urinary frequency or urinary urgency Skin/Breast: Denies: rash PFSH ED PFSH: Medical History Acute ischemic stroke Afib Anxiety and depression Atrial fibrillation Back pain CAD (coronary artery disease) Chest pain Chest pain Chronic anticoagulation Diabetes Flu-like symptoms History of posttraumatic stress disorder (PTSD) HTN (hypertension) Hypertensive urgency Lacunar infarction Major depressive disorder, recurrent severe without psychotic features Pacemaker Pneumonia Psychiatric care SSS (sick sinus syndrome) Syncope Tachycardia Transaminitis Surgical History Gastric banding status S/P placement of cardiac pacemaker Status post cholecystectomy Family History Father CAD (coronary artery disease) Mother Cancer Social History Smoking and tobacco status: former smoker (quit 15 years ago) Alcohol intake: never Household members: spouse Housing: House Physical Exam Const: GENERAL APPEARANCE: cooperative and comfortable ORIENTATION/CONS CIOUSNESS: Yes awake, Yes oriented to person, Yes oriented to place and Yes oriented to time HENMT: COMMON NORMALS: normocephalic, atraumatic and hearing grossly normal bilaterally HEAD & SCALP: normocephalic and atraumatic Neck/C-Spine: COMMON NORMALS: full ROM, no lymphadenopathy, supple and no JVD Resp: COMMON NORMALS: normal respiratory effort, No retractions, No use of accessory muscles and clear to auscultation bilaterally AUSCULTATION: clear to auscultation bilaterally Cardio: COMMON NORMALS: no JVD, regular rate, regular rhythm and No murmurs present (Cardio) RATE: regular rate RHYTHM: regular rhythm GI: COMMON NORMALS: Soft to palpation and No hepatosplenomegaly present AUSCULTATION: Yes normoactive bowel sounds PALPATION: Yes Soft to palpation, No Tenderness to palpation present (GI), No Guarding due to palpation present (GI) and Yes No hepatosplenomegaly present Extremity: COMMON NORMALS: normal to inspection, capillary refill normal, no clubbing, cyanosis or edema, no calf tenderness and no pedal edema Neuro: SENSORIUM/ORIENTATION: Yes oriented to person, Yes oriented to place and Yes oriented to time Skin: COMMON NORMALS: no rashes or lesions noted GENERAL SKIN EXAM: no rashes or lesions noted Course Vital Signs: Vital signs: Vital Signs Temperature 97.9 F 05/10/22 14:01 Pulse Rate 103 H 05/10/22 14:01 Respiratory Rate 12 05/10/22 14:01 Blood Pressure 142/61 05/10/22 14:01 Pulse Oximetry 95 05/10/22 14:01 Oxygen Delivery Me thod 05/10/22 14:01 MDM - Extremity (Nontraumatic) Medical Decision Making Comminuted proximal right humerus fracture unchanged. Other x-rays unremarkable discharge patient home continue previously prescribed pain medications follow-up with Ortho as previously planned Medical Records I reviewed the patient's medical records. Lab Data I reviewed the patient's lab results. Radiology Impressions Shoulder X-Ray 05/10/22 14:03 IMPRESSION: 1. Comminuted angulated displaced right humeral neck fracture with overriding of fracture fragments. 2. 2.7 cm displaced humeral head fracture which could represent the greater tuberosity. 3. No obvious glenohumeral dislocation. Cervical Spine X-Ray 05/10/22 14:05 IMPRESSION: No acute findings. Head CT 05/10/22 14:14 IMPRESSION: No acute intracranial findings. Discharge Plan Discharge Patient Disposition: Home Clinical Impression: Fall, Fracture of proximal humerus Condition: Stable Prescriptions: No Action metoprolol succinate 25 mg tablet extended release 24 hr 25 mg PO BID Ultram 50 mg tablet 50 mg PO Q6H PRN (Reason: pain) Qty: 120 0RF ondansetron HCl 4 mg tablet 4 mg PO Q8H PRN (Reason: nausea and vomiting) Qty: 30 0RF omeprazole 20 mg capsule,delayed release(DR/EC) 20 mg PO BID 30 Days Qty: 60 0RF loperamide [Imodium A-D] 2 mg capsule 2 mg PO QID PRN (Reason: loose stool) Qty: 14 0RF (DME) CUFF AND COLLAR SLING See Rx Instructions .Route .MEDSUPPLY Qty: 1 0RF Rx Instructions: As directed oxycodone-acetaminophen [Percocet] 5-325 mg tablet 1 tab PO Q6H PRN (Reason: pain) 7 Days Qty: 28 0RF hydroxyzine pamoate 25 mg capsule 25 mg PO BID PRN Centrum Silver Men 300-600-300 mcg tablet 1 tab PO DAILY Eliquis 5 mg tablet 5 mg PO BID Qty: 60 5RF melatonin 5 mg capsule 5 mg PO BEDTIME Qty: 30 5RF furosemide [Lasix] 40 mg tablet 40 mg PO QAM Qty: 30 5RF sertraline [Zoloft] 50 mg tablet 50 mg PO QAM Qty: 30 2RF quetiapine 100 mg tablet 100 mg PO BEDTIME Qty: 30 1RF tamsulosin 0.4 mg Capsule 0.4 mg PO QAM ferrous sulfate 325 mg (65 mg iron) Tablet 325 mg PO BID nitroglycerin [Nitrostat] 0.4 mg Tablet, Sublingual 0.4 mg SUBLINGUAL Q5M PRN (Reason: Chest Pain) Rx Instructions: do not exceed 3 doses per episode aspirin 81 mg Tablet,Delayed Release (Dr/Ec) 81 mg PO QAM lisinopril 40 mg tablet 40 mg PO QAM potassium gluconate 595 mg (99 mg) Tablet 595 mg PO QAM rosuvastatin 20 mg tablet 20 mg PO BEDTIME Qty: 30 0RF Discharge Orders: Discharge ED (Routine); Ordered 05/10/22 Ordered By: Gilberto Ang Referrals: Tina Go FNP [Primary Care Provider] - Discharge Diet: Usual diet Discharge Activity: Increase activity as tolerated Patient Instructions: Opioid Safety, Pain Management Activity Restrictions/Additional Instructions: Follow-up with orthopedist as previously scheduled. Coding Level of Care Code ED Manager Performance for Shreyasg Fwd Exam Comprehensive
[2022-05-10 14:34] VITALS: PULSE 80; O2SAT 100
[2022-05-10 15:00] VITALS: BP 127/68; PULSE 80; O2SAT 100
[2022-05-10] MEDS: HYDROcodone-acetaminophen 5-325 mg Tablet 1 TAB PO (15:00)
[2022-05-10 15:30] VITALS: BP 132/71; PULSE 72; O2SAT 95
== END 2022-05-10 15:40 | disposition home or self-care (01) ==
PROVIDERS: Emergency Provider Family Medicine; PCP Nurse Practitioner Family
DX: S42.211A Unspecified displaced fracture of surgical neck of right humerus, initial encounter for closed fracture (principal); S42.291A Other displaced fracture of upper end of right humerus, initial encounter for closed fracture; Z79.01 Long term (current) use of anticoagulants; Z79.82 Long term (current) use of aspirin; Z87.891 Personal history of nicotine dependence; I25.10 Atherosclerotic heart disease of native coronary artery without angina pectoris; E11.9 Type 2 diabetes mellitus without complications; I10 Essential (primary) hypertension; Z95.0 Presence of cardiac pacemaker; W18.30XA Fall on same level, unspecified, initial encounter
CPT/HCPCS: 70450; 72040; 73030; 99284

== ENCOUNTER 2022-05-16 20:11 | Emergency (ER) | payer MEDICARE, MEDICAID, SELFPAY ==
[2022-05-16 20:16] VITALS: BP 138/84; PULSE 95; RESP 20; O2SAT 98; BMI 42.5
--- NOTE | 2022-05-16 20:38 | XRR_ITS ---
PROCEDURE INFORMATION: Exam: XR Right Elbow Exam date and time: 05/16/2022 8:56 PM Age: 61 years old Clinical indication: Injury or trauma; Other: Pain post fall; Injury date: Approx 1 week ago; Patient HX: PT states he fell one week ago and fractured his humerus. PT is in a wheelchair and has very limited rom TECHNIQUE: Imaging protocol: Radiologic exam of the Right elbow. Views: 3 or more views. COMPARISON: CR (CHEST, ) 05/10/2022 2:21 PM FINDINGS: Bones/joints: Normal. Soft tissues: Normal. XR/XR elbow RT min 3V* [id number] IMPRESSION: No acute findings.
[2022-05-16 21:30] VITALS: BP 138/84; PULSE 93; RESP 18; O2SAT 99
--- NOTE | 2022-05-16 21:33 | USR_ITS ---
PROCEDURE INFORMATION: Exam: US Duplex Right Upper Extremity Veins, Limited Exam date and time: 05/16/2022 10:14 PM Age: 61 years old Clinical indication: Pain; Arm, upper; Right; Additional info: Right arm pain and swelling TECHNIQUE: Imaging protocol: Real-time Duplex ultrasound of the Right Upper Extremity with 2-D sinclair scale, color Doppler flow and spectral waveform analysis with image documentation. Limited exam focused on the right upper extremity veins. COMPARISON: CR (UP EXM, ) 05/16/2022 8:56 PM FINDINGS: Right deep veins: Unremarkable. Axillary and brachial veins are patent throughout without thrombus. Normal Doppler waveforms. Normal compressibility and/or augmentation response. Visualized internal jugular and subclavian veins are patent. Right superficial veins: Unremarkable. Visualized cephalic and basilic veins are patent without thrombus. Soft tissues: Unremarkable. US/[place] [id number] IMPRESSION: No evidence of deep vein thrombosis.
--- NOTE | 2022-05-16 21:38 | W.ED.EXTPRO ---
HPI - Extremity Problem General: Chief complaint: Extremity Injury, Upper Stated complaint: Injury Fell Rt Elbow Pain to Neck Time Seen by Provider: 05/16/22 21:32 History of Present Illness: Patient is a 61-year-old male comes to the ED with right elbow pain. Denies any acute trauma or injury to cause pain. Patient had fall with proximal fracture of right humerus back on May 04 and is wearing shoulder sling. Pain in his right elbow started last night and has continued to get worse. He currently takes hydrocodone and oxycodone to help with pain and he took a dose of oxycodone at 5 PM tonight. Patient is on blood thinners. Denies any chest pain, shortness of breath or hemoptysis. Associated symptoms: Deny chest pain, fever(s) or rash Review of Systems Const: Denies: fever(s), chills or fatigue Eyes: Denies: change in vision or eye discomfort ENMT: Denies: throat pain, odynophagia, nasal discharge or nasal congestion Card: Denies: chest pain, palpitations, edema, swelling of feet/ankles, dyspnea on exertion or orthopnea Resp: Denies: dyspnea, productive cough or non-productive cough GI: Denies: abdominal pain, nausea, vomiting, diarrhea, constipation or hematochezia : Denies: flank pain, difficulty urinating, dysuria or hematuria Musc: Reports: extremity pain (Right elbow) and extremity swelling (Right arm); Denies: neck pain or back pain Skin/Breast: Denies: rash or new lesions Neuro: Denies: headache(s), numbness in extremities or weakness in extremities PFS ED PFSH: Medical History Acute ischemic stroke Afib Anxiety and depression Atrial fibrillation Back pain CAD (coronary artery disease) Chest pain Chest pain Chronic anticoagulation Diabetes Flu-like symptoms History of posttraumatic stress disorder (PTSD) HTN (hypertension) Hypertensive urgency Lacunar infarction Major depressive disorder, recurrent severe without psychotic features Pacemaker Pneumonia Psychiatric care SSS (sick sinus syndrome) Syncope Tachycardia Transaminitis Surgical History Gastric banding status S/P placement of cardiac pacemaker Status post cholecystectomy Family History Father CAD (coronary artery disease) Mother Cancer Social History Smoking and tobacco status: former smoker (quit 15 years ago) Alcohol intake: never Household members: spouse Housing: House Physical Exam Const: COMMON NORMALS: patient oriented x3 and alert GENERAL APPEARANCE: cooperative and comfortable HENMT: COMMON NORMALS: normocephalic HEAD & SCALP: normocephalic MOUTH: Normal oral and palatal mucosa present THROAT: posterior oropharynx normal and uvula midline Neck/C-Spine: COMMON NORMALS: supple GENERAL: Yes normal visual inspection Resp: COMMON NORMALS: normal respiratory effort, No retractions, No use of accessory muscles and clear to auscultation bilaterally AUSCULTATION: clear to auscultation bilaterally Cardio: COMMON NORMALS: regular rate, regular rhythm, S1 normal heart sound present, S2 normal heart sound present, No gallops present (Cardio), No clicks present (Cardio), No murmurs present (Cardio) and Peripheral pulses 2+ throughout RATE: regular rate RHYTHM: regular rhythm HEART SOUNDS: S1 normal heart sound present and S2 normal heart sound present PERIPHERAL PULSES: Peripheral pulses 2+ throughout GI: COMMON NORMALS: Normal to inspection, nondistended, normoactive bowel sounds present, Soft to palpation, non-tender and no masses PALPATION: Yes Soft to palpation : COMMON NORMALS: Yes no CVA tenderness BLADDER/KIDNEY EXAM: Yes no CVA tenderness Back/Pelvis: COMMON NORMALS: no CVA tenderness Extremity: NARRATIVE EXTREMITY EXAM: Patient presents with right arm and shoulder sling. Right elbow?1+ pitting edema throughout forearm. Tenderness all throughout elbow. Neurovascular tact distally. Neuro: COMMON NORMALS: patient oriented x3 SENSORIUM/ORIENTATION: Yes alert GAIT: Yes Normal gait present Skin: GENERAL SKIN EXAM: dry skin Course Vital Signs: Vital signs: Vital Signs Pulse Rate 94 05/16/22 22:51 Respiratory Rate 18 05/16/22 22:51 Blood Pressure 138/84 05/16/22 21:30 Pulse Oximetry 99 05/16/22 21:30 Oxygen Delivery Me thod 05/16/22 21:30 MDM - Extremity (Nontraumatic) Medical Decision Making Patient is a 61-year-old male who comes to the ED with right elbow pain. Denies any acute trauma or injury to cause pain. Patient had fall with proximal fracture of right humerus back on May 04 and is wearing shoulder sling. Patient is currently on blood thinners. Denies any chest pain, shortness of breath or hemoptysis. Vitals are stable. Patient does have some 1+ pitting edema in right forearm. Neurovascular tact distally. Tenderness all throughout right elbow. Rest of exam is benign. X-ray of right elbow showed no acute findings or fractures. Ultrasound venous duplex of right upper extremity showed no evidence of any DVTs. Patient was diagnosed right elbow pain and was discharged home. Told to follow-up with PCP/Ortho within the next 7 to 10 days for reevaluation. Return to ED precautions given. Patient is to agree with plan. Lab Data Radiology Impressions Elbow X-Ray 05/16/22 20:38 IMPRESSION: No acute findings. Venous Duplex 05/16/22 21:33 IMPRESSION: No evidence of deep vein thrombosis. Discharge Plan Discharge Patient Disposition: Home Clinical Impression: Elbow pain, right Condition: Stable Prescriptions: No Action metoprolol succinate 25 mg tablet extended release 24 hr 25 mg PO BID Ultram 50 mg tablet 50 mg PO Q6H PRN (Reason: pain) Qty: 120 0RF ondansetron HCl 4 mg tablet 4 mg PO Q8H PRN (Reason: nausea and vomiting) Qty: 30 0RF omeprazole 20 mg capsule,delayed release(DR/EC) 20 mg PO BID 30 Days Qty: 60 0RF loperamide [Imodium A-D] 2 mg capsule 2 mg PO QID PRN (Reason: loose stool) Qty: 14 0RF (DME) CUFF AND COLLAR SLING See Rx Instructions .Route .MEDSUPPLY Qty: 1 0RF Rx Instructions: As directed hydroxyzine pamoate 25 mg capsule 25 mg PO BID PRN Centrum Silver Men 300-600-300 mcg tablet 1 tab PO DAILY Eliquis 5 mg tablet 5 mg PO BID Qty: 60 5RF melatonin 5 mg capsule 5 mg PO BEDTIME Qty: 30 5RF furosemide [Lasix] 40 mg tablet 40 mg PO QAM Qty: 30 5RF sertraline [Zoloft] 50 mg tablet 50 mg PO QAM Qty: 30 2RF quetiapine 100 mg tablet 100 mg PO BEDTIME Qty: 30 1RF oxycodone-acetaminophen [Percocet] 5-325 mg tablet 1 tab PO Q6H PRN (Reason: pain) 7 Days Qty: 28 0RF tamsulosin 0.4 mg Capsule 0.4 mg PO QAM ferrous sulfate 325 mg (65 mg iron) Tablet 325 mg PO BID nitroglycerin [Nitrostat] 0.4 mg Tablet, Sublingual 0.4 mg SUBLINGUAL Q5M PRN (Reason: Chest Pain) Rx Instructions: do not exceed 3 doses per episode aspirin 81 mg Tablet,Delayed Release (Dr/Ec) 81 mg PO QAM lisinopril 40 mg tablet 40 mg PO QAM potassium gluconate 595 mg (99 mg) Tablet 595 mg PO QAM rosuvastatin 20 mg tablet 20 mg PO BEDTIME Qty: 30 0RF Discharge Orders: Discharge ED (Routine); Ordered 05/16/22 Ordered By: Giancarlo Garg Referrals: Tina Go FNP [Primary Care Provider] - Discharge Diet: Regular Discharge Activity: Limit activity as instructed Patient Instructions: Opioid Safety Activity Restrictions/Additional Instructions: Follow-up with Ortho surgeon at your next scheduled appointment. Continue taking all home meds as previously prescribed. Return to the ER or your medical provider if condition worsens. Please read and understand discharge instructions. Thank you for choosing [facility] for your healthcare needs today. Please realize this is an emergency room and that we are providing you with a medical screening exam and this may not be complete and all inclusive of all the testing and or work up that you may need to determine your ailment or severity of your illness. It is very important that you follow up as instructed or that you return to the Emergency Department should you have concerns or if your condition changes or worsens in any way. Coding Level of Care Code ED [employer] for Anabela Clark Exam Comprehensive
[2022-05-16] MEDS: morphine 4 mg/mL SDV 1 mL IM (21:39)
[2022-05-16 22:51] VITALS: PULSE 94; RESP 18
== END 2022-05-16 22:53 | disposition home or self-care (01) ==
PROVIDERS: Emergency Provider Physician Assistant; PCP Nurse Practitioner Family
DX: M25.521 Pain in right elbow (principal); Z79.01 Long term (current) use of anticoagulants; Z79.82 Long term (current) use of aspirin; Z87.891 Personal history of nicotine dependence; I25.10 Atherosclerotic heart disease of native coronary artery without angina pectoris; E11.9 Type 2 diabetes mellitus without complications; I10 Essential (primary) hypertension; Z95.0 Presence of cardiac pacemaker
CPT/HCPCS: 73080; 93971; 96372; 99285; J2270

== ENCOUNTER → 2022-05-19 10:35 | Outpatient (BNVA) | payer MEDICARE, MEDICAID, SELFPAY | PROVIDERS: PCP Nurse Practitioner Family; Visit Provider Student in an Organized Health Care Education/Training Program | DX: S42.201A Unspecified fracture of upper end of right humerus, initial encounter for closed fracture (principal); X58.XXXA Exposure to other specified factors, initial encounter | CPT/HCPCS: 73030; 99213 ==

== ENCOUNTER 2022-05-24 15:48 | Emergency (ER) | payer MEDICARE, MEDICAID, SELFPAY ==
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
[2022-05-24 16:01] VITALS: BP 162/104; PULSE 112; RESP 16; TEMP 36.7; O2SAT 96
[2022-05-24 16:36] VITALS: RESP 20
[2022-05-24] MEDS: methocarbamol 750 mg Tablet PO (16:36)
[2022-05-24] MEDS: morphine 4 mg/mL SDV 1 mL IVP (16:36)
[2022-05-24 16:40] LABS: Basophils % 0.2 %; Eosinophils % 0.5 %; Hematocrit 34.6 % (42.0-52.0); Hemoglobin 11.5 g/dL (11.7-16.6); Lymphocytes # 0.3 10^3/uL (0.8-4.8); Lymphocytes % 4.4 %; Mean Corpuscular HGB Conc 33.2 g/dL (30.0-36.0); Mean Corpuscular Hemoglobin 34.5 pg (28.0-34.0); Mean Corpuscular Volume 103.9 fl (80-94); Mean Platelet Volume 10.8 fL (7.4-10.4); Monocytes # 0.3 10^3/uL (0.2-0.9); Neutrophils # 5.74 10^3/uL (1.8-7.7); Neutrophils % 89.6 %; Nucleated Red Blood Cells % 0 %; Platelet Count 212 10^3/cmm (130-400); Red Blood Count 3.33 10^6/uL (4.1-5.3); Red Cell Distribution Width 17.1 % (12.1-15.1); White Blood Count 6.4 10^3/uL (4.0-10.0)
[2022-05-24 17:06] LABS: Anion Gap 13.9 (5-19); Blood Urea Nitrogen 16 mg/dL (8-23); Calcium 8.7 mg/dL (8.5-10.5); Carbon Dioxide 21 mmol/L (22-29); Chloride 101 mmol/L (98-107); Glomerular Filtration Rate 86.1 mL/min (90-130); Glucose 115 mg/dL (65-115); Osmolality Calculated 276 mOsm/kg (285-295); Potassium 3.9 mmol/L (3.5-5.1); Sodium 132 mmol/L (136-145)
[2022-05-24 18:05] VITALS: RESP 14
[2022-05-24] MEDS: HYDROmorphone 1 mg/mL INJ 1 mL 0.5 MG IVP (18:05)
[2022-05-24] MEDS: ketorolac 30 mg/mL INJ 15 MG IVP (21:19)
[2022-05-24 22:54] VITALS: BP 164/82; PULSE 112; RESP 16; O2SAT 98
== END 2022-05-24 22:55 | disposition home or self-care (01) ==
PROVIDERS: Emergency Provider Emergency Medicine; PCP Nurse Practitioner Family
DX: M54.9 Dorsalgia, unspecified (principal); D53.9 Nutritional anemia, unspecified; E86.0 Dehydration; Z79.01 Long term (current) use of anticoagulants; Z87.891 Personal history of nicotine dependence; Z95.0 Presence of cardiac pacemaker; I25.10 Atherosclerotic heart disease of native coronary artery without angina pectoris; E11.9 Type 2 diabetes mellitus without complications; I10 Essential (primary) hypertension
CPT/HCPCS: 70450; 72125; 72128; 72131; 80048; 85025; 96374; 96375; 99285; J1170; J1885; J2270

== ENCOUNTER 2022-05-29 22:24 | Observation (INO) | payer MEDICARE, MEDICAID, SELFPAY ==
[2022-05-29] VITALS (23 sets, daily range): BP systolic 148–192; BP diastolic 87–107; PULSE 93–102; RESP 13–27; O2SAT 91–97; BMI 40.8
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
[2022-05-29] MEDS: oxyCODONE-APAP 5-325 mg Tablet 1 TAB PO (23:25)
[2022-05-30] VITALS (94 sets, daily range): BP systolic 107–188; BP diastolic 68–129; PULSE 73–109; RESP 7–40; TEMP 36.3; O2SAT 59–99
[2022-05-30] MEDS: ketorolac 30 mg/mL INJ 15 MG IVP ×2 (04:34→17:24)
[2022-05-30 05:44] LABS: Basophils % 0.3 %; Eosinophils # 0.1 10^3/uL (0.0-0.8); Eosinophils % 1.4 %; Hematocrit 30.6 % (42.0-52.0); Hemoglobin 9.9 g/dL (11.7-16.6); Lymphocytes # 0.7 10^3/uL (0.8-4.8); Mean Corpuscular HGB Conc 32.4 g/dL (30.0-36.0); Mean Corpuscular Hemoglobin 33.6 pg (28.0-34.0); Mean Corpuscular Volume 103.7 fl (80-94); Mean Platelet Volume 10.7 fL (7.4-10.4); Monocytes # 0.6 10^3/uL (0.2-0.9); Monocytes % 15.9 %; Neutrophils # 2.16 10^3/uL (1.8-7.7); Neutrophils % 61.1 %; Nucleated Red Blood Cells % 0 %; Platelet Count 227 10^3/cmm (130-400); Red Blood Count 2.95 10^6/uL (4.1-5.3); Red Cell Distribution Width 16.8 % (12.1-15.1); White Blood Count 3.5 10^3/uL (4.0-10.0)
[2022-05-30 06:13] LABS: Alanine Aminotransferase 33 U/L (0-41); Albumin Level 2.8 g/dL (3.5-5.2); Alkaline Phosphatase 176 U/L (40-130); Anion Gap 12.6 (5-19); Aspartate Amino Transferase 21 U/L (0-40); Blood Urea Nitrogen 13 mg/dL (8-23); Calcium 8.8 mg/dL (8.5-10.5); Carbon Dioxide 30 mmol/L (22-29); Chloride 102 mmol/L (98-107); Globulin 2.8 g/dL (1.3-4.6); Glucose 96 mg/dL (65-115); Osmolality Calculated 292 mOsm/kg (285-295); Potassium 3.6 mmol/L (3.5-5.1); Sodium 141 mmol/L (136-145); Total Bilirubin 0.6 mg/dL (0.15-1.2); Total Protein 5.6 g/dL (6.6-8.7)
[2022-05-30] MEDS: FUROsemide 40 mg Tablet PO (06:20)
[2022-05-30] MEDS: sertraline 50 mg Tablet PO ×2 (06:20→14:26)
[2022-05-30] MEDS: lisinopril 20 mg Tablet 40 MG PO (06:20)
[2022-05-30] MEDS: tamsulosin 0.4 mg Capsule PO (06:20)
[2022-05-30] MEDS: oxyCODONE-APAP 5-325 mg Tablet 1 TAB PO ×3 (06:25→19:22)
[2022-05-30] MEDS: metoprolol succinate ER (24 HR) 25 mg Tablet PO ×2 (09:24→17:24)
[2022-05-30] MEDS: pantoprazole DR 40 mg Tablet PO ×2 (09:24→17:24)
[2022-05-30] MEDS: HYDROmorphone 1 mg/mL INJ 1 mL IVP ×2 (09:29→15:25)
--- NOTE | 2022-05-30 09:37 | PC.NURSE ---
1:[address] Inman. Patient denies SI at this time but states he did say he wished he was out of frustration due to lack of pain control. He no longer wishes this. Dr. Inman asked patient about code status. Patient request full code. Patient now given IV pain medication.
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
[2022-05-30] MEDS: acetaminophen 325 mg Tablet 650 MG PO ×2 (13:23→21:14)
[2022-05-30] MEDS: methocarbamol 500 mg Tablet PO ×2 (14:26→21:14)
--- NOTE | 2022-05-30 16:46 | PC.NURSE ---
Report called to [facility] Suazo. Patient and belongings taken to room 255-2. Family called and updated on transfer.
[2022-05-30] MEDS: quetiapine 100 mg Tablet 200 MG PO (21:13)
[2022-05-30] MEDS: atorvastatin 40 mg Tablet PO (21:14)
[2022-05-31] VITALS (14 sets, daily range): BP systolic 104–175; BP diastolic 67–84; PULSE 70–90; RESP 10–18; TEMP 36.4–37.1; O2SAT 91–98
[2022-05-31] MEDS: oxyCODONE-APAP 5-325 mg Tablet 1 TAB PO ×4 (03:01→21:55)
[2022-05-31] MEDS: ketorolac 30 mg/mL INJ 15 MG IVP (04:19)
[2022-05-31] MEDS: HYDROmorphone 1 mg/mL INJ 1 mL IVP (04:20)
[2022-05-31] MEDS: ondansetron 2 mg/ML SDV 2 mL 4 MG IVP (04:45)
[2022-05-31 05:20] LABS: Basophils % 0.5 %; Eosinophils # 0.1 10^3/uL (0.0-0.8); Eosinophils % 2.1 %; Hemoglobin 10.1 g/dL (11.7-16.6); Lymphocytes # 0.9 10^3/uL (0.8-4.8); Lymphocytes % 20.6 %; Mean Corpuscular HGB Conc 30.6 g/dL (30.0-36.0); Mean Corpuscular Hemoglobin 33.3 pg (28.0-34.0); Mean Corpuscular Volume 108.9 fl (80-94); Mean Platelet Volume 10.8 fL (7.4-10.4); Monocytes # 0.5 10^3/uL (0.2-0.9); Monocytes % 11.6 %; Neutrophils # 2.79 10^3/uL (1.8-7.7); Neutrophils % 64.7 %; Nucleated Red Blood Cells % 0 %; Platelet Count 225 10^3/cmm (130-400); Red Blood Count 3.03 10^6/uL (4.1-5.3); Red Cell Distribution Width 16.7 % (12.1-15.1); White Blood Count 4.3 10^3/uL (4.0-10.0)
[2022-05-31] MEDS: sertraline 100 mg Tablet PO (05:28)
[2022-05-31] MEDS: tamsulosin 0.4 mg Capsule PO (05:28)
[2022-05-31] MEDS: FUROsemide 40 mg Tablet PO (05:29)
[2022-05-31] MEDS: lisinopril 20 mg Tablet 40 MG PO (05:29)
[2022-05-31 05:49] LABS: Anion Gap 9.6 (5-19); Blood Urea Nitrogen 15 mg/dL (8-23); Calcium 8.8 mg/dL (8.5-10.5); Carbon Dioxide 31 mmol/L (22-29); Chloride 99 mmol/L (98-107); Glomerular Filtration Rate 137.4 mL/min (90-130); Glucose 81 mg/dL (65-115); Osmolality Calculated 282 mOsm/kg (285-295); Potassium 3.6 mmol/L (3.5-5.1); Sodium 136 mmol/L (136-145)
[2022-05-31] MEDS: pantoprazole DR 40 mg Tablet PO ×2 (09:30→16:50)
[2022-05-31] MEDS: metoprolol succinate ER (24 HR) 25 mg Tablet PO ×2 (09:31→16:50)
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
[2022-05-31 11:04] LABS: ABG PH Result 7.39 (7.35-7.45); Arterial Blood Gas Hematocrit 33.5 % (42-52); Base Excess ABG 9.8 mmol/L (-2.0-2.0); Blood Gas Operator Identificat GD; Blood Gas Sample Site Brachial, left; Blood Gas Sample Type Arterial; HCO3 ABG 36.7 mmol/L (22-26); Oxygen Device NC; PO2 ABG 76.5 mmHg (80.0-100.0)
[2022-05-31 11:05] LABS: ABG PCO2 61.1 mmHg (35-45)
[2022-05-31] MEDS: methocarbamol 500 mg Tablet PO (16:50)
[2022-05-31] MEDS: atorvastatin 40 mg Tablet PO (21:19)
[2022-05-31] MEDS: hyDROXYzine 25 mg Capsule PO (21:19)
[2022-06-01] VITALS (13 sets, daily range): BP systolic 145–176; BP diastolic 74–83; PULSE 78–85; RESP 12–18; TEMP 36.8–37.1; O2SAT 90–97
[2022-06-01] MEDS: ketorolac 30 mg/mL INJ 15 MG IVP ×3 (01:53→17:48)
[2022-06-01 03:47] LABS: Blood Urea Nitrogen 14 mg/dL (8-23); Calcium 8.8 mg/dL (8.5-10.5); Carbon Dioxide 32 mmol/L (22-29); Chloride 95 mmol/L (98-107); Glomerular Filtration Rate 137.4 mL/min (90-130); Glucose 101 mg/dL (65-115); Osmolality Calculated 275 mOsm/kg (285-295); Sodium 132 mmol/L (136-145)
[2022-06-01] MEDS: oxyCODONE-APAP 5-325 mg Tablet 1 TAB PO ×3 (04:28→20:41)
[2022-06-01] MEDS: tamsulosin 0.4 mg Capsule PO (05:30)
[2022-06-01] MEDS: FUROsemide 40 mg Tablet PO (05:30)
[2022-06-01] MEDS: lisinopril 20 mg Tablet 40 MG PO (05:31)
[2022-06-01] MEDS: pantoprazole DR 40 mg Tablet PO ×2 (08:31→17:48)
[2022-06-01] MEDS: metoprolol succinate ER (24 HR) 25 mg Tablet PO ×2 (08:31→17:48)
[2022-06-01] MEDS: methocarbamol 500 mg Tablet PO ×3 (08:40→20:41)
--- NOTE | 2022-06-01 08:52 | PC.SOCIAL ---
IMM update IMM updated with patient. Verbalized an understanding. Copy Pg 2 provided. Initialled, dated, timed, and placed in chart.
--- NOTE | 2022-06-01 09:44 | XR_ITS ---
WS: [id number] Exam: XR shoulder RT min 2V* [id number] Date/Time of Exam: 06/01/2022 9:51 AM Reason For Exam: Fracture Comparison 05/19/2022. Again noted is a comminuted fracture through the surgical neck as well as the head of the humerus wit h some displacement. There is medial superior displacement of the humeral neck unchanged in position. No other fractures of the shoulder are noted. Mild degenerative change at the AC joint. XR/XR shoulder RT min 2V* [id number] IMPRESSION: 1. Displaced fracture of the proximal humerus unchanged in position. There is s ome callus formation beginning to form.
--- NOTE | 2022-06-01 10:27 | P.PN_ITS ---
Subjective Subjective: This morning he has full with Dr. Mullins and Dr. Parker Both are recommending MRI to better assess before making a decision regarding surgical intervention Dr. Parker wants to rule out rotator cuff injury and Dr. Mullins wants to evaluate for osteonecrosis of T11 area Stating that his back pain is worse than his right arm pain Vitals/I&O/Wt Last Vital Signs Temp 98.3 F 06/01/22 08:00 Pulse 78 06/01/22 10:06 Resp 16 06/01/22 10:06 BP 169/78 06/01/22 08:00 Pulse Ox 96 06/01/22 10:06 O2 Del Method 06/01/22 10:06 O2 Flow Rate 2 06/01/22 10:06 05/31/22 06/01/22 06/01/22 22:59 06:59 14:59 Intake Total 480 / 840 Output Total 550 / 550 1800 / 1800 Balance 480 / 840 -550 / 290 -1800 / -1800 Physical Exam Narrative: Patient is laying flat in his bed Stating he cannot move because of back pain Nuñez catheter in place Abdomen distended nontender Awake and alert Currently on 2 L nonfocal neuro exam Limited range of motion of right extremity, no wrist drop Urinary Catheter Management: Nuñez: Cath Placed During This Visit: no Reason for Continuing Indwelling Catheter: Acute Urinary Retention or Obstruction Data : 05/31/22 04:35 06/01/22 02:44 A&P Assessment and plan (1) Humerus fracture: (2) Suicidal thoughts: (3) Intractable pain: (4) Post-traumatic stress disorder, chronic: (5) Osteonecrosis: (6) Compression fracture: (7) Chronic thoracic back pain: (8) Anxiety and depression: (9) Pacemaker: (10) Atrial fibrillation, chronic: Plan I am obtaining MRI of the shoulder and thoracic area Will touch this with Dr. Parker and Dr. Mullins again Eliquis has been on hold Patient is complaining of back pain, he has not tried to get up because of back pain Nuñez catheter in place A. fib without RVR Eliquis on hold Hemodynamically stable Currently on 2 L of oxygen Pressure depression improved pH was compensated without significant hypoxemia on ABG yesterday Constipation opioid induced Continue bowel regimen Full code Attestations Medical Necessity Statement*: Continue medical management Time Spent in Patient Care: 30 Coding Level of Care Code Acute [employer] Supervisor for Chg Fwd Diagnoses Humerus fracture S42.309A Suicidal thoughts R45.851 Intractable pain R52 Post-traumatic stress disorder, chronic F43.12 Osteonecrosis M87.9 Compression fracture Chronic thoracic back pain M54.6; G89.29 Anxiety and depression F41.9; F32.A Pacemaker Z95.0 Atrial fibrillation, chronic I48.20
--- NOTE | 2022-06-01 11:11 | CT_ITS ---
WS: [id number] CT RIGHT SHOULDER WITH CONTRAST HISTORY: Evaluate Rotator cuff Technique: All [facility] scans at [facility] use at least one of these dose optimization techniques: automated exposure control; mA and/or kV adjustment per patient size (includes targeted exams where dose is matched to clinical indication); or iterative reconstruction. Contrast: Omnipaque 350; 100 mL IV. DLP: 699.82 mGy.cm COMPARISON: RIGHT shoulder radiograph 06/01/2022. Severely comminuted, impacted RIGHT shoulder fracture. There are multiple fractures involving the hum eral head and the proximal humerus. The humeral head is rotated laterally and overlaps the distal fra gment of the humerus. Marked impaction along the fracture line. Several bony fragments extend into th e muscles and tendons surrounding the humeral head. Most significant involvement of the subscapularis tendon. Moderate atrophy of the supraspinatus and infraspinatus muscles. Moderate effusion surroundi ng the humeral head. No areas of abnormal enhancement. Visualized lung is clear with exception of a few benign granulomata. CT/CT shoulder RT w con [id number] IMPRESSION: 1. Markedly comminuted impacted and displaced RIGHT humeral neck and head frac ture. 2. Humeral head is laterally dislocated and displaced lateral to the proximal humeral diaphysis. 3. Numerous bony fragments extend into the region of the subscapularis tendon and muscle.
[2022-06-01] MEDS: iohexol 350 mg/mL 100 mL Btl IV (13:44)
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
[2022-06-01] MEDS: nystatin powder 15 gm Btl 1 APPLIC TOPICAL (17:48)
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
[2022-06-01] MEDS: hyDROXYzine 25 mg Capsule PO (19:34)
[2022-06-01] MEDS: atorvastatin 40 mg Tablet PO (19:34)
[2022-06-02] VITALS (16 sets, daily range): BP systolic 124–166; BP diastolic 77–90; PULSE 60–90; RESP 16–18; TEMP 36.5–36.8; O2SAT 89–95
[2022-06-02] MEDS: ketorolac 30 mg/mL INJ 15 MG IVP ×3 (01:21→19:22)
[2022-06-02] MEDS: oxyCODONE-APAP 5-325 mg Tablet 1 TAB PO ×4 (01:21→19:22)
[2022-06-02] MEDS: lisinopril 20 mg Tablet 40 MG PO (04:45)
[2022-06-02] MEDS: FUROsemide 40 mg Tablet PO (04:45)
[2022-06-02] MEDS: tamsulosin 0.4 mg Capsule PO (04:45)
[2022-06-02] MEDS: methocarbamol 500 mg Tablet PO ×3 (06:46→21:54)
--- NOTE | 2022-06-02 07:43 | P.PN_ITS ---
Subjective Subjective: Patient resting comfortably. Family is present. Continues to have mid and low back pain. Denies any new injuries or complaints through the evening. Vitals/I&O/Wt Last Vital Signs Temp 98.3 F 06/02/22 04:00 Pulse 77 06/02/22 05:12 Resp 16 06/02/22 06:46 BP 124/86 06/02/22 04:00 Pulse Ox 94 06/02/22 04:00 O2 Del Method 06/01/22 20:05 O2 Flow Rate 2 06/01/22 20:05 06/01/22 06/02/22 06/02/22 22:59 06:59 14:59 Intake Total 240 / 240 Output Total 1250 / 3050 Balance 240 / -1560 -1250 / -2810 Physical Exam Narrative: AO x3 with good general appearance, normal mood and Affect. Pain with palpation in mid back, moving both lower extremities wiggles all digits. Good sensation light touch down both lower extremities. Dorsalis pedis poste rior pulses are weak but palpable. Calves are supple. Full range of motion of both upper extremities at the shoulders elbows and wrist on the left has a shoulder immobilizer on the right he wiggles his fingers hands are warm good cap refill for range of motion of the cervical spine. HENMT: COMMON NORMALS: normocephalic HEAD & SCALP: normocephalic Resp: COMMON NORMALS: normal respiratory effort Cardio: COMMON NORMALS: regular rate and regular rhythm RATE: regular rate RHYTHM: regular rhythm GI: COMMON NORMALS: Soft to palpation and non-tender PALPATION: Yes Soft to palpation : COMMON NORMALS: Yes no CVA tenderness BLADDER/KIDNEY EXAM: Yes no CVA tenderness Back/Pelvis: COMMON NORMALS: no CVA tenderness Psych: COMMON NORMALS: mental status grossly normal and cooperative Urinary Catheter Management: Nuñez: Cath Placed During This Visit: no Reason for Continuing Indwelling Catheter: Acute Urinary Retention or Obstruction Data : 05/31/22 04:35 06/01/22 02:44 A&P Assessment and plan (1) Traumatic compression fracture of thoracic vertebra: Discussed options of kyphoplasty versus TLSO brace. He would like to proceed with the kyphoplasty. Dr. Mullins was in to discuss this with him as well and agrees above-stated plan. I had an open and honest discussion with the patient about the risks, benefits and alternatives of both surgical and nonsurgical treatment. The patient verbalized understanding of the inherent unpredictability associated with surgery. Risks of surgery were discussed which include, but not limited to, infection, bleeding, temporary and permanent nerve damage, continued pain, stiffness, incomplete healing, need for revision surgery, blood clots and any other complication. The patient verbalized understanding that their surgery is elective in nature and if they find any of these risks to be unacceptable, then they should choose not to have surgery. The patient verbalized understanding of these risks and elected to proceed with surgery. More than 50% of the time spent with the patient today involved coordination of care, counseling and discussion of conservative versus surgical treatment options. Total amount of time spent with the patient was 30 minutes. (2) Traumatic compression fracture of T12 thoracic vertebra: Attestations Medical Necessity Statement*: defer to medical team Coding Level of Care Code Established Pt Acute Photographic Technician for [facility] Fwd Patient Type Established History Expanded Problem Focused Exam Expanded Problem Focused Medical Decision Making Moderate Complexity Diagnoses Traumatic compression fracture of thoracic vertebra S22.000A Traumatic compression fracture of T12 thoracic vertebra S22.080A Time Spent (min) 30
[2022-06-02] MEDS: pantoprazole DR 40 mg Tablet PO ×2 (09:33→17:10)
[2022-06-02] MEDS: metoprolol succinate ER (24 HR) 25 mg Tablet PO ×2 (09:33→17:10)
--- NOTE | 2022-06-02 09:33 | P.PN_ITS ---
Subjective Subjective: Patient is going for kyphoplasty tomorrow Dr. Nunes is not planning for any surgical intervention all of right humeral fracture Conservative management Patient does not need BiPAP it was only for as needed use in case of respite depression Vitals/I&O/Wt Last Vital Signs Temp 98.0 F 06/02/22 07:48 Pulse 90 06/02/22 07:48 Resp 18 06/02/22 07:48 BP 152/80 06/02/22 07:48 Pulse Ox 89 L 06/02/22 07:48 O2 Del Method 06/02/22 07:48 O2 Flow Rate 2 06/01/22 20:05 06/01/22 06/02/22 06/02/22 22:59 06:59 14:59 Intake Total 240 / 240 Output Total 1250 / 3050 Balance 240 / -1560 -1250 / -2810 Physical Exam Narrative: Patient is awake and alert Family at the bedside Much more pleasant and cooperative today Right arm is in a sling Laying supine Abdomen soft Nuñez catheter draining orange-colored urine Awake and alert Currently on room air No conversational dyspnea Nonfocal neuro exam Urinary Catheter Management: Nuñez: Cath Placed During This Visit: no Reason for Continuing Indwelling Catheter: Acute Urinary Retention or Obstruction Data : 05/31/22 04:35 06/01/22 02:44 A&P Assessment and plan (1) Traumatic compression fracture of thoracic vertebra: (2) Traumatic compression fracture of T12 thoracic vertebra: (3) Compression fracture: (4) Osteonecrosis: (5) Humerus fracture: (6) Suicidal thoughts: (7) Intractable pain: (8) Atrial fibrillation, chronic: (9) History of posttraumatic stress disorder (PTSD): (10) Focal sensory loss: Plan Severe back pain Multiple compression fractures Osteonecrosis T11 Patient is going for kyphoplasty tomorrow Appreciate orthopedics recommendations His Eliquis has been on hold He does not need preoperative cardiac clearance A. fib without RVR continue AV angelica blocking agents Humeral fracture conservative management as per Dr. Parker Patient is denying constipation Continue bowel regimen along opioids Full code N.p.o. after midnight SCDs for now Patient is a agreeable to go to [facility] after surgery Attestations Medical Necessity Statement*: Continue medical management Time Spent in Patient Care: 30 Coding Level of Care Code Acute Central Services Tech for Chg Fwd Diagnoses Traumatic compression fracture of thoracic vertebra S22.000A Traumatic compression fracture of T12 thoracic vertebra S22.080A Compression fracture Osteonecrosis M87.9 Humerus fracture S42.309A Suicidal thoughts R45.851 Intractable pain R52 Atrial fibrillation, chronic I48.20 History of posttraumatic stress disorder (PTSD) Z86.59 Focal sensory loss R44.9
[2022-06-02] MEDS: nystatin powder 15 gm Btl 1 APPLIC TOPICAL ×2 (10:09→17:10)
[2022-06-02] MEDS: temazepam 15 mg Capsule 30 MG PO (17:57)
[2022-06-03] VITALS (23 sets, daily range): BP systolic 137–170; BP diastolic 69–98; PULSE 72–88; RESP 14–18; TEMP 36.2–36.7; O2SAT 90–100
--- NOTE | 2022-06-03 | SCC_ITS ---
Procedure done: 1. Kyphoplasty T11 2. Kyphoplasty T12 75 seconds of fluoroscopic guidance, for a cumulative dose of 100 mGy and 88.5mGy , was provided to Dr. Mullins by the radiology department. C-arm images of the thoracic spine were saved for the patient's permanent record. [facility]
[2022-06-03] MEDS: oxyCODONE-APAP 5-325 mg Tablet 1 TAB PO ×3 (00:52→20:20)
[2022-06-03] MEDS: ketorolac 30 mg/mL INJ 15 MG IVP (04:43)
[2022-06-03] MEDS: metoprolol succinate ER (24 HR) 25 mg Tablet PO ×2 (04:43→17:31)
[2022-06-03 06:09] LABS: Basophils % 0.5 %; Eosinophils # 0.1 10^3/uL (0.0-0.8); Hematocrit 35.1 % (42.0-52.0); Hemoglobin 11.4 g/dL (11.7-16.6); Lymphocytes # 1.3 10^3/uL (0.8-4.8); Lymphocytes % 21.2 %; Mean Corpuscular HGB Conc 32.5 g/dL (30.0-36.0); Mean Corpuscular Volume 101.7 fl (80-94); Mean Platelet Volume 11.3 fL (7.4-10.4); Monocytes # 0.7 10^3/uL (0.2-0.9); Monocytes % 10.9 %; Neutrophils # 3.98 10^3/uL (1.8-7.7); Neutrophils % 65.1 %; Nucleated Red Blood Cells % 0 %; Platelet Count 284 10^3/cmm (130-400); Red Blood Count 3.45 10^6/uL (4.1-5.3); Red Cell Distribution Width 15.8 % (12.1-15.1); White Blood Count 6.1 10^3/uL (4.0-10.0)
[2022-06-03] MEDS: methocarbamol 500 mg Tablet PO (06:34)
[2022-06-03 06:52] LABS: Anion Gap 12.7 (5-19); Blood Urea Nitrogen 15 mg/dL (8-23); Carbon Dioxide 34 mmol/L (22-29); Chloride 97 mmol/L (98-107); Glomerular Filtration Rate 98.6 mL/min (90-130); Glucose 100 mg/dL (65-115); Osmolality Calculated 291 mOsm/kg (285-295); Potassium 3.7 mmol/L (3.5-5.1); Sodium 140 mmol/L (136-145)
--- NOTE | 2022-06-03 07:39 | SC_ITS ---
WS: [id number] Exam: C-arm FL for Kyphoplasty Date/Time of Exam: 06/03/2022 7:39 AM Reason For Exam: Kyphoplasty T 11 T12 Intraoperative AP and lateral C-arm images of the lower T-spine submitted for evaluation. The images depict vertebral plasty of the T11 and T12 vertebral bodies. No other significant finding on this limited series.
[2022-06-03] MEDS: pantoprazole DR 40 mg Tablet PO ×2 (08:49→17:31)
[2022-06-03] MEDS: ALPRAZolam 0.5 mg Tablet PO ×2 (08:49→19:27)
[2022-06-03] MEDS: FUROsemide 40 mg Tablet PO (08:49)
--- NOTE | 2022-06-03 08:49 | PC.SOCIAL ---
IMM update IMM updated with patient and at bedside. Verbalized an understanding. Copy Pg 2 provided. Initialled, dated, timed, and placed in chart.
[2022-06-03] MEDS: tamsulosin 0.4 mg Capsule PO (08:50)
--- NOTE | 2022-06-03 09:26 | PM.PN ---
Subjective Subjective: Patient is stating that he was very anxious could not sleep very well even despite use of Restoril Still complaining of back pain Plan for kyphoplasty today on He will need intermediate afterwards I would replenish his potassium He had 1 bowel movement yesterday Vitals/I&O/Wt Last Vital Signs Temp 97.9 F 06/03/22 07:40 Pulse 73 06/03/22 08:27 Resp 18 06/03/22 08:27 BP 162/75 06/03/22 07:40 Pulse Ox 96 06/03/22 08:27 O2 Del Method 06/03/22 08:27 O2 Flow Rate 2 06/02/22 08:00 06/02/22 06/03/22 06/03/22 22:59 06:59 14:59 Intake Total 120 / 960 Output Total 600 / 2400 800 / 3200 Balance -480 / -1440 -800 / -2240 Physical Exam Narrative: Patient is awake and alert Laying supine Not anxious at the time of my evaluation Currently on room air Complaining of back pain Right arm in a sling at the bedside Abdomen soft Lower extremity no significant edema Urinary Catheter Management: Nuñez: Cath Placed During This Visit: no Reason for Continuing Indwelling Catheter: Required Immobilization for Trauma or Surgery or Anesthesia Data : 06/03/22 04:48 06/03/22 04:48 A&P Assessment and plan (1) Displaced fracture of proximal end of humerus: (2) Traumatic compression fracture of thoracic vertebra: (3) Traumatic compression fracture of T12 thoracic vertebra: (4) Suicidal thoughts: (5) Osteonecrosis: Plan Right humeral fracture conservative management, shoulder immobilizer is recommended by Dr. Parker Compression fracture osteoporosis T11: Kyphoplasty planned for today Hypokalemia: Repleted He is n.p.o. Eliquis has been on hold for last 3 days Will start Eliquis 6 hours after the surgery He can have his diet after the procedure today He will need intermediate placement afterwards Full code Opioids with bowel regimen, last bowel movement yesterday Attestations Medical Necessity Statement*: Continue medical management Time Spent in Patient Care: 30 Coding Level of Care Code Acute Sofa Inspector for g Fwd Diagnoses Displaced fracture of proximal end of humerus S42.209A Traumatic compression fracture of thoracic vertebra S22.000A Traumatic compression fracture of T12 thoracic vertebra S22.080A Suicidal thoughts R45.851 Osteonecrosis M87.9
[2022-06-03] MEDS: potassium chloride ER 20 mEq Tablet 40 MEQ PO (09:56)
--- NOTE | 2022-06-03 11:36 | PC.NURSE ---
AT APPROX. 1135 PT WAS TAKEN TO SURGERY BY SURGERY NURSES.
[2022-06-03] MEDS: sodium chloride 0.9% 1,000 ML 30 ML IV (12:01)
--- NOTE | 2022-06-03 12:01 | W.PM.OPSUD ---
Surgery/Procedure H&P Update DATE OF PROCEDURE: June 03, 2022 DATE H&P PERFORMED: 06/01/22 H&P UPDATE INFORMATION: I have reviewed H&P completed within last 30 days, I have examined patient prior to procedure and No changes to prior documentation PREOP DIAGNOSIS: Unstable angina/ Ventricular tachycardia, compression fracture T11 and T12 PLANNED PROCEDURE: Operation Date: 06/03/22 12:10 Proposed Procedures p Kyphoplasty(Not Applicable) - Marcos Mullins DO
[2022-06-03] MEDS: ceFAZolin 2,000 MG in sodium chloride 0.9% (plus) 50 ML 100 MG IV ×2 (12:54→20:21)
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
[2022-06-03] MEDS: iohexol 300 mg/mL 50 mL Btl (OR ONLY) XX (13:48)
--- NOTE | 2022-06-03 14:31 | SUR.PHASEI ---
1410 Bilat SCDs on and placed on pump. Pump working
--- NOTE | 2022-06-03 14:49 | P.OP_ITS ---
Operative Report Date of procedure: June 03, 2022 Pre-op diagnosis: Preop Diagnosis wedge traumatic osteoporotic compression fracture T11 and T12 Post-op diagnosis: same Procedure done: 1. Kyphoplasty T11 2. Kyphoplasty T12 Surgeon: Marcos Mullins Studio Technician Video Operator: Ulices Spaulding Studio Technician Video Operator: The surgical garment assembly supervisor, Ulices Spaulding, PAC was needed for his expertise with compression fractures. He was important and necessary throughout the procedure to complete in a safe and timely manner. He assisted with patient positioning prepping and draping tissue retraction suctioning of the operative field protection of the pedicle structures and tissue closure Estimated blood loss (mL): 5 Procedure: 1. Kyphoplasty T11 2. Kyphoplasty T12 Patient was brought to the operative suite after undergoing anesthesia placed in prone position related and visual padded. Biplanar C-arm was brought in the T11 and T12 levels were identified. The patient was then prepped and draped no sterile fashion. Skin skin is made over the left superior lateral pedicle of T11. The awl was inserted. This was done in the under biplanar C arm Next the biopsy syringe was inserted and then the drill was inserted. The tissue from this was sent for pathology. The balloon was inflated. Is found to be in center of the vertebral body. Swelling left side was done. Was brought to the T12 level. Again the superior lateral incision was made over the left pedicle the awl was inserted followed by the drill followed by the balloon. Balloon was inflated. Was used cement was placed into the T11 vertebral body under fluoroscopy to ensure that there is no leakage of the cement outside the vertebral body. This was also done at the T12 level. AP lateral fluoroscopy were taken after the cement hardened and tubes were removed. Wounds were irrigated and closed with nylon suture. And sterile dressings were applied.
--- NOTE | 2022-06-03 15:44 | ANES.PROC ---
Anesthesia Procedures Procedure/Date: 06/03/22 Nerve Block ^: Nerve Block 1: Main Anesthesia: general anesthesia Time Out Performed: Yes Consent: requested by attending/covering physician, from patient, risks and benefits reviewed and patient agrees to proceed Nerve block location: interscalene (right) Anesthesia monitors applied: pulse oximetry, EKG, BP cuff and oxygen Nerve block position: semi sitting Anesthetic Used: ropivicaine 0.5% Amount of anesthesia used (mL): 30 Ultrasound used to: recognize landmarks and visualize and ID brachial plexus Nerve Stimulator Used?: No Interscalene/Femoral BLK: 2 stimuplex 22 g needle used for position and inplane approach Injection: neg aspiration of heme Patient Tolerated Procedure: well Complications: none
[2022-06-03] MEDS: docusate sodium 100 mg Capsule PO (17:31)
--- NOTE | 2022-06-03 17:42 | ANE.PACU2 ---
Inpatient post-anesthesia follow up: Airway intact: Yes Vital signs: Temperature 97.4 F Pulse Rate 81 Respiratory Rate 18 Blood Pressure 147/85 Pulse Oximetry 99 Oxygen Delivery Me thod Nasal Cannula Oxygen Flow Rate 2 Fraction of Inspir ed Oxygen Hydration adequate: Yes Nausea and vomiting: No Pain level: 2 Mental status: Baseline
[2022-06-03] MEDS: atorvastatin 40 mg Tablet PO (20:20)
[2022-06-03] MEDS: temazepam 15 mg Capsule PO (20:20)
[2022-06-03] MEDS: ketorolac 30 mg/mL INJ IVP (22:33)
[2022-06-04] VITALS (13 sets, daily range): BP systolic 132–192; BP diastolic 74–90; PULSE 68–92; RESP 16–18; TEMP 36.4–36.8; O2SAT 91–97
[2022-06-04 05:14] LABS: Hematocrit 33.2 % (42.0-52.0); Hemoglobin 10.8 g/dL (11.7-16.6); Lymphocytes # 0.5 10^3/uL (0.8-4.8); Lymphocytes % 7.3 %; Mean Corpuscular HGB Conc 32.5 g/dL (30.0-36.0); Mean Corpuscular Hemoglobin 33.5 pg (28.0-34.0); Mean Corpuscular Volume 103.1 fl (80-94); Mean Platelet Volume 11.3 fL (7.4-10.4); Monocytes # 0.2 10^3/uL (0.2-0.9); Monocytes % 2.9 %; Neutrophils # 6.23 10^3/uL (1.8-7.7); Neutrophils % 89.1 %; Nucleated Red Blood Cells % 0 %; Platelet Count 270 10^3/cmm (130-400); Red Blood Count 3.22 10^6/uL (4.1-5.3); Red Cell Distribution Width 15.3 % (12.1-15.1)
[2022-06-04] MEDS: lisinopril 20 mg Tablet 40 MG PO (05:18)
[2022-06-04] MEDS: ceFAZolin 2,000 MG in sodium chloride 0.9% (plus) 50 ML 100 MG IV ×2 (05:20→13:08)
[2022-06-04 05:37] LABS: Anion Gap 13.1 (5-19); Blood Urea Nitrogen 19 mg/dL (8-23); Calcium 9.2 mg/dL (8.5-10.5); Carbon Dioxide 29 mmol/L (22-29); Chloride 95 mmol/L (98-107); Glucose 144 mg/dL (65-115); Osmolality Calculated 281 mOsm/kg (285-295); Potassium 4.1 mmol/L (3.5-5.1); Sodium 133 mmol/L (136-145)
--- NOTE | 2022-06-04 07:43 | PM.PN ---
Subjective Subjective: POD 1 Patient reports feeling less back pain. Denies any shortness of breath, chest pain, headaches. Vitals/I&O/Wt Last Vital Signs Temp 97.6 F 06/04/22 00:00 Pulse 77 06/04/22 06:00 Resp 18 06/04/22 03:53 BP 158/80 06/04/22 03:53 Pulse Ox 91 06/04/22 03:53 O2 Del Method 06/04/22 03:53 O2 Flow Rate 2 06/04/22 00:00 06/03/22 06/04/22 06/04/22 22:59 06:59 14:59 Intake Total 1770 / 1920 50 / 1970 Output Total 900 / 2210 Balance 1770 / 610 -850 / -240 Physical Exam Narrative: Patient resting comfortably he is alert denies any back pain. Incisions clean and dry. He is wiggling both lower extremities and firing all motor groups. Feet are warm good cap refill normal station light touch in all digits. Urinary Catheter Management: Nuñez: Cath Placed During This Visit: no Reason for Continuing Indwelling Catheter: Acute Urinary Retention or Obstruction Data : 06/04/22 04:46 06/04/22 04:46 A&P Assessment and plan (1) Traumatic compression fracture of thoracic vertebra: Patient states his back pain is considerably better following the kyphoplasty procedure. We will have physical therapy work with mobilizing. Following physical therapy discussed with the nurse to order an upright AP lateral standing thoracolumbar radiograph to focus on T11 and T12. From orthopedic standpoint once medically stable able to remove the Nuñez catheter. We will have him follow-up in 1 week's time for wound check in the office. Encourage incentive spirometry for pulmonary toilet. (2) Traumatic compression fracture of T12 thoracic vertebra: Attestations Medical Necessity Statement*: defer to medical team Coding Level of Care Code Acute Liquefaction And Regasification Helper for [facility] Fwd Diagnoses Traumatic compression fracture of thoracic vertebra S22.000A Traumatic compression fracture of T12 thoracic vertebra S22.080A
[2022-06-04] MEDS: HYDROcodone-acetaminophen 5-325 mg Tablet PO ×2 (08:27→13:06)
[2022-06-04] MEDS: docusate sodium 100 mg Capsule PO ×2 (08:45→16:36)
[2022-06-04] MEDS: FUROsemide 40 mg Tablet PO (08:45)
[2022-06-04] MEDS: tamsulosin 0.4 mg Capsule PO (08:45)
[2022-06-04] MEDS: nystatin powder 15 gm Btl 1 APPLIC TOPICAL ×2 (08:48→16:36)
[2022-06-04] MEDS: metoprolol succinate ER (24 HR) 25 mg Tablet PO ×2 (08:48→16:36)
[2022-06-04] MEDS: pantoprazole DR 40 mg Tablet PO ×2 (08:48→16:37)
--- NOTE | 2022-06-04 09:38 | PM.PN ---
Subjective Subjective: Patient has had a seeking behavior He did get Restoril last night and as per the nursing staff he was found snoring in the morning when I interviewed him he stated that he did not sleep at all and is in distress and wants another Restoril this morning His respiratory rate was in 10 when he was asking for opioids frequently?we will repeat cut back on his opioids for now he required BiPAP to decrease his chances of respiratory arrest related to opiate overdose Vitals/I&O/Wt Last Vital Signs Temp 97.7 F 06/04/22 08:00 Pulse 80 06/04/22 08:00 Resp 16 06/04/22 08:00 BP 192/82 06/04/22 08:00 Pulse Ox 96 06/04/22 08:00 O2 Del Method 06/04/22 08:00 O2 Flow Rate 2.5 06/04/22 08:00 06/03/22 06/04/22 06/04/22 22:59 06:59 14:59 Intake Total 1770 / 1920 50 / 1970 Output Total 900 / 2210 Balance 1770 / 610 -850 / -240 Physical Exam Narrative: Patient seems comfortable laying supine Awake and alert Nonfocal neuro exam Hemodynamically stable Currently on 2 L nasal cannula Abdomen soft Nonfocal neuro exam Urinary Catheter Management: Nuñez: Cath Placed During This Visit: no Reason for Continuing Indwelling Catheter: Acute Urinary Retention or Obstruction Data : 06/04/22 04:46 06/04/22 04:46 A&P Assessment and plan (1) Displaced fracture of proximal end of humerus: (2) Traumatic compression fracture of thoracic vertebra: (3) Traumatic compression fracture of T12 thoracic vertebra: (4) Compression fracture: (5) Osteonecrosis: Plan Postop day 1 Status post kyphoplasty No postop complications Patient does seem to have seeking behavior, I will keep him on p.o. opioids along bowel regimen Awaiting placement Full code Start Eliquis A. fib without RVR Anxiety:- he is on as needed Xanax as well Dr. Nunes has recommended conservative management with shoulder immobilizer for right humeral fracture which is already showing signs of healing Attestations Medical Necessity Statement*: Continue medical management Time Spent in Patient Care: 30 Coding Level of Care Code Acute Bottom Sander for [facility] Fwd Diagnoses Displaced fracture of proximal end of humerus S42.209A Traumatic compression fracture of thoracic vertebra S22.000A Traumatic compression fracture of T12 thoracic vertebra S22.080A Compression fracture Osteonecrosis M87.9
[2022-06-04] MEDS: ALPRAZolam 0.5 mg Tablet PO ×2 (10:03→20:07)
--- NOTE | 2022-06-04 13:39 | PC.NURSE ---
5731 pt complained of rt shoulder and back pain...hydrocodone given per prn order
--- NOTE | 2022-06-04 13:42 | PC.NURSE ---
0920 pt resting quietly with eyes closed
--- NOTE | 2022-06-04 13:43 | PC.NURSE ---
1010 pt has worked with PT and requested something for anxiety...xanax 0.5mg given per prn order
--- NOTE | 2022-06-04 13:45 | PC.NURSE ---
1100...pt resting well with eyes closed and snoring
--- NOTE | 2022-06-04 13:46 | PC.NURSE ---
Addendum entered by Jennifer Meng RN 06/04/22 13:48: hydrocodone given per prn order Original Note: 1315 pt requesting pain med for pain in rt shouler and back rates at 10 on 0-10 pain scale
--- NOTE | 2022-06-04 13:49 | PC.NURSE ---
1335...pt talking calmly on phone to family member...no s/s of pain
[2022-06-04] MEDS: apixaban 5 mg Tablet PO (16:36)
[2022-06-04] MEDS: oxyCODONE-APAP 5-325 mg Tablet 1 TAB PO (16:37)
--- NOTE | 2022-06-04 18:01 | P.NPUCON_ITS ---
Providers/Reason for Consult Consulting Physican/Specialty*: Paul Pantoja Reason for Consult*: agitation, depression Attending Physician: Woody Inman MD Primary Care Provider: DARSHANA Gallo Psych Consult HPI History of Present Illness Jeremie Alexander is a 61 year old male seen earlier this week prior to his lumbar fusion surgery who had reported feeling anxious and tense after surgery. He reports having continued pain and stated that he was unable to sleep last night. He had reported that he needed something to manage his stress while being here. He reported no thoughts of hurting himself at this time but reported that he was going to lose it if he did not get something to help him. Patient had reported having few hobbies and little interest in anything. He had reported being frustrated at having to sit for hours in the bed. Meds Home Medications and Allergies Home Medications Medication Instructions Recorded Confirmed Last Taken Type ferrous sulfate 325 mg (65 mg 325 mg PO BID 11/23/20 05/29/22 03/27/22 History iron) tablet tamsulosin 0.4 mg capsule 0.4 mg PO QAM 11/23/20 05/29/22 1 Day Ago History ~05/28/22 nitroglycerin 0.4 mg sublingual 0.4 mg sublingual Q5M PRN Chest 10/21/21 05/29/22 03/27/22 History tablet (Nitrostat) Pain metoprolol succinate 25 mg 25 mg PO BID 03/19/22 05/29/22 05/29/22 History tablet,extended release 24 hr lisinopril 40 mg tablet 40 mg PO QAM 03/27/22 05/29/22 05/29/22 History potassium gluconate 595 mg (99 mg) 595 mg PO QAM 03/27/22 05/29/22 2 Days Ago History tablet ~05/27/22 apixaban 5 mg tablet (Eliquis) 5 mg PO BID #60 tabs 03/31/22 05/29/22 05/29/22 Rx furosemide 40 mg tablet (Lasix) 40 mg PO QAM #30 tabs 03/31/22 05/29/22 05/29/22 Rx melatonin 5 mg capsule 5 mg PO BEDTIME #30 caps 03/31/22 05/29/22 Unknown Rx qpqgmmic-kfr-xdlqk acid 300 1 tab PO DAILY 03/31/22 05/29/22 05/29/22 History mcg-lycopene 600 mcg-lutein 300 mcg tablet (Centrum Silver Men) loperamide 2 mg capsule (Imodium 2 mg PO QID PRN loose stool #14 04/23/22 05/29/22 Unknown Rx A-D) caps omeprazole 20 mg capsule,delayed 20 mg PO BID 30 days #60 caps 04/23/22 05/29/22 Unknown Rx release tramadol 50 mg tablet (Ultram) 50 mg PO Q6H PRN pain #120 tabs 04/28/22 05/29/22 Unknown Rx CUFF AND COLLAR SLING #1 ea 05/07/22 05/29/22 Unknown Rx dicyclomine 20 mg tablet 20 mg PO TID #90 tabs 05/18/22 05/29/22 Unknown Rx methocarbamol 500 mg tablet 500 mg PO TID PRN muscle spasm, 05/19/22 05/29/22 Unknown Rx pain 7 days #21 tabs oxycodone-acetaminophen 5 mg-325 1 tab PO Q6H PRN pain 7 days #28 05/19/22 05/29/22 Unknown Rx mg tablet (Percocet) tabs rosuvastatin 20 mg tablet 20 mg PO BEDTIME #30 tabs 05/19/22 05/29/22 2 Weeks Ago Rx ~05/15/22 hydroxyzine pamoate 25 mg capsule 25 mg PO .HS PRN sleep #30 caps 05/20/22 05/29/22 Unknown Rx ondansetron 8 mg disintegrating 8 mg PO Q8H 5 days #15 tabs 05/20/22 05/29/22 Unknown Rx tablet quetiapine 200 mg tablet (Seroquel) 200 mg PO .HS #30 tabs 05/20/22 05/29/22 2 Weeks Ago Rx ~05/15/22 sertraline 50 mg tablet (Zoloft) 50 mg PO QAM #30 tabs 05/20/22 05/29/2205/10 Rx Allergies Allergy/AdvReac Type Severity Reaction Status Date / Time ticagrelor [From Brilinta] Allergy Unknown ALGY-Hives Verified 05/20/22 11:30 trazodone Allergy Unknown ADR-Nightma Verified 05/20/22 11:30 re Current Medications Current Medications Generic Name Dose Route Start Last Admin Trade Name Aura PRN Reason Stop Dose Admin Acetaminophen 650 mg 05/29/22 23:06 05/30/22 21:14 Acetaminophen 325 Mg Tablet PO 650 mg Q6H PRN Administration Mild/Mod Pain Or Temp >/= 101 Hydrocodone Bitart/Acetaminophen 1 - 2 tab 06/03/22 14:40 06/05/22 16:41 Hydrocodone-Acetaminophen 5-325 Mg Tablet PO 1 tab Q4H PRN Administration MODERATE TO SEVERE PAIN Alprazolam 0.5 mg 06/02/22 17:23 06/05/22 10:00 Alprazolam 0.5 Mg Tablet PO 0.5 mg BID PRN Administration ANXIETY Apixaban 5 mg 05/30/22 09:00 06/05/22 17:22 Apixaban 5 Mg Tablet PO 5 mg BID SAVANAH Administration Atorvastatin Calcium 40 mg 05/30/22 21:00 06/04/22 20:06 Atorvastatin 40 Mg Tablet PO 40 mg BEDTIME SAVANAH Administration Docusate Sodium 100 mg 06/03/22 18:00 06/05/22 17:23 Docusate Sodium 100 Mg Capsule PO Not Given BID SAVANAH Doxepin HCl 25 mg 06/04/22 21:00 06/04/22 20:07 Doxepin 25 Mg Capsule PO 25 mg BEDTIME SAVANAH Administration Furosemide 40 mg 06/03/22 09:00 06/05/22 08:48 Furosemide 40 Mg Tablet PO 40 mg DAILY SAVANAH Administration Hydromorphone HCl 0.2 mg 06/04/22 09:43 06/05/22 11:15 Hydromorphone 1 Mg/Ml Inj 1 Ml IVP 0.2 mg Q4H PRN Administration pain Ketorolac Tromethamine 30 mg 06/03/22 14:40 06/05/22 08:47 Ketorolac 30 Mg/Ml Inj IVP 30 mg Q6H PRN Administration BREAKTHROUGH PAIN Lisinopril 40 mg 05/30/22 06:00 06/05/22 05:45 Lisinopril 20 Mg Tablet PO 40 mg QAM SAVANAH Administration Methocarbamol 500 mg 05/29/22 23:13 06/03/22 06:34 Methocarbamol 500 Mg Tablet PO 500 mg TID PRN Administration muscle spasm, pain Metoprolol Succinate 25 mg 05/30/22 09:00 06/05/22 17:22 Metoprolol Succinate Er (24 Hr) 25 Mg Tablet PO 25 mg BID SAVANAH Administration Nystatin 1 applic 06/01/22 09:30 06/05/22 17:22 Nystatin Powder 15 Gm Btl TOPICAL 1 applic BID SAVANAH Administration Ondansetron HCl 4 mg 05/29/22 23:06 05/31/22 04:45 Ondansetron 2 Mg/Ml Sdv 2 Ml IVP 4 mg Q8H PRN Administration vomiting, or N/V if npo Oxycodone/Acetaminophen 1 tab 05/30/22 10:35 06/05/22 02:48 Oxycodone-Apap 5-325 Mg Tablet PO 1 tab Q6H PRN Administration SEVERE pain Pantoprazole Sodium 40 mg 05/30/22 18:00 06/05/22 17:[address] 40 Mg Tablet PO 40 mg BID SAVANAH Administration Sertraline HCl 50 mg 06/05/22 09:00 06/05/22 08:48 Sertraline 50 Mg Tablet PO 50 mg DAILY SAVANAH Administration Tamsulosin HCl 0.4 mg 06/03/22 09:00 06/05/22 08:48 Tamsulosin 0.4 Mg Capsule PO 0.4 mg DAILY SAVANAH Administration Temazepam 15 mg 06/04/22 21:00 06/04/22 22:34 Temazepam 15 Mg Capsule PO 15 mg BEDTIME PRN Administration INSOMNIA PFSH NPU PFSH: Medical History Acute ischemic stroke Afib Anxiety and depression Atrial fibrillation Back pain CAD (coronary artery disease) Chest pain Chest pain Chronic anticoagulation Diabetes Flu-like symptoms History of posttraumatic stress disorder (PTSD) HTN (hypertension) Hypertensive urgency Lacunar infarction Major depressive disorder, 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, recurrent severe without psychotic features Pacemaker Pneumonia Post-traumatic stress disorder, chronic Psychiatric care SSS (sick sinus syndrome) Syncope Tachycardia Transaminitis Surgical History Gastric banding status S/P placement of cardiac pacemaker Status post cholecystectomy Family History Father CAD (coronary artery disease) Mother Cancer Social History Smoking and tobacco status: former smoker (quit 15 years ago) Alcohol intake: never Household members: spouse Housing: House Mental Status Exam MSE Comments: This is a morbidly obese white male in hospital gown with limited grooming but appropriate eye contact. He appeared very restless during the interview. He was cooperative with exam in no significant mental distress. Speech was slightly decreased rate and volume. Mood described okay/could be better, affect congruent. Thought process organized. Thought content: Patient denied suicidal or homicidal ideation, there were no delusions reported or noted, he denied any auditory or visual hallucinations. He was easily distracted. He did appear to be in some pain. He is alert and oriented x3. Insight and judgment were poor. and impulse control was poor. Vitals/I&O/Wt Last Vital Signs Temp 97.8 F 06/05/22 16:00 Pulse 71 06/05/22 16:00 Resp 16 06/05/22 16:00 BP 156/84 06/05/22 16:00 Pulse Ox 98 06/05/22 16:00 O2 Del Method 06/05/22 16:00 O2 Flow Rate 2 06/05/22 11:53 06/05/22 06/05/22 06/05/22 06:59 14:59 22:59 Intake Total 600 / 600 1200 / 1800 Output Total 550 / 2550 Balance -550 / -1060 600 / 600 1200 / 1800 Physical Exam Urinary Catheter Management: Nuñez: Cath Placed During This Visit: no Reason for Continuing Indwelling Catheter: Acute Urinary Retention or Obstruction Data NPU : 06/04/22 04:46 06/04/22 04:46 A&P Assessment and plan (1) Suicidal thoughts: (2) Intractable pain: (3) Post-traumatic stress disorder, chronic: (4) Major depressive disorder, recurrent severe without psychotic features: (5) Compression fracture: (6) Osteonecrosis: (7) Humerus fracture: Plan This is a 61-year-old white male with a long history of mental health treatment with past trauma who presents with depression, reported suicidal statements against the backdrop of physical health challenges open to medication adjustments. 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 I would recommend continuing Zoloft as prescribed and I recommend adding doxepin 25 mg at night in addition to target insomnia. He appears to have extremely poor coping skills and clearly additional pain medicine is not possible. I would consider if possible adding either Xanax or Valium to his medication regimen on a routine basis and a small dose to help with relaxation. 2.? No need for inpatient psychiatric services noted. Involuntary Hold Information 96 Hour Hold: 96 Hour Involuntary Admission: No Attestations NPU Medical Necessity Statement*: NA Coding Level of Care Code Established Pt Acute Rubber Engraver for Chg Fwd Patient Type Established History Problem Focused Exam Problem Focused Medical Decision Making Straight Forward Diagnoses Suicidal thoughts R45.851 Intractable pain R52 Post-traumatic stress disorder, chronic F43.12 Major depressive disorder, recurrent severe without psychotic features F33.2 Compression fracture Osteonecrosis M87.9 Humerus fracture S42.309A
[2022-06-04] MEDS: atorvastatin 40 mg Tablet PO (20:06)
[2022-06-04] MEDS: doxepin 25 mg Capsule PO (20:07)
[2022-06-04] MEDS: ketorolac 30 mg/mL INJ IVP (20:28)
[2022-06-04] MEDS: temazepam 15 mg Capsule PO (22:34)
[2022-06-05] VITALS (12 sets, daily range): BP systolic 96–172; BP diastolic 56–85; PULSE 60–77; RESP 15–18; TEMP 36.4–36.9; O2SAT 92–98
[2022-06-05] MEDS: oxyCODONE-APAP 5-325 mg Tablet 1 TAB PO ×2 (02:48→19:31)
[2022-06-05] MEDS: lisinopril 20 mg Tablet 40 MG PO (05:45)
[2022-06-05] MEDS: ketorolac 30 mg/mL INJ IVP (08:47)
[2022-06-05] MEDS: FUROsemide 40 mg Tablet PO (08:48)
[2022-06-05] MEDS: sertraline 50 mg Tablet PO (08:48)
[2022-06-05] MEDS: pantoprazole DR 40 mg Tablet PO ×2 (08:48→17:22)
[2022-06-05] MEDS: tamsulosin 0.4 mg Capsule PO (08:48)
[2022-06-05] MEDS: metoprolol succinate ER (24 HR) 25 mg Tablet PO ×2 (08:48→17:22)
[2022-06-05] MEDS: apixaban 5 mg Tablet PO ×2 (08:48→17:22)
[2022-06-05] MEDS: ALPRAZolam 0.5 mg Tablet PO (10:00)
[2022-06-05] MEDS: nystatin powder 15 gm Btl 1 APPLIC TOPICAL ×2 (10:01→17:22)
--- NOTE | 2022-06-05 10:43 | P.PN_ITS ---
Subjective Subjective: Patient was resting comfortably Vitals/I&O/Wt Last Vital Signs Temp 97.5 F L 06/05/22 07:34 Pulse 75 06/05/22 07:55 Resp 18 06/05/22 07:55 BP 161/83 06/05/22 07:34 Pulse Ox 93 06/05/22 07:55 O2 Del Method 06/05/22 07:55 O2 Flow Rate 2 06/05/22 07:55 06/04/22 06/05/22 06/05/22 22:59 06:59 14:59 Intake Total 480 / 1490 240 / 240 Output Total 1999 550 / 2550 Balance -1520 / -510 -550 / -1060 240 / 240 Physical Exam Narrative: Patient was asleep No overnight events No new focal deficit On 2 L nasal cannula Abdomen soft however distended nontender Hemodynamically stable Lower extremity without edema Urinary Catheter Management: Nuñez: Cath Placed During This Visit: no Reason for Continuing Indwelling Catheter: Acute Urinary Retention or Ob struction Data : 06/04/22 04:46 06/04/22 04:46 A&P Assessment and plan (1) Displaced fracture of proximal end of humerus: (2) Traumatic compression fracture of thoracic vertebra: (3) Traumatic compression fracture of T12 thoracic vertebra: (4) Compression fracture: (5) Osteonecrosis: (6) S/P kyphoplasty: Plan Compression fracture osteonecrosis Status post kyphoplasty No postoperative complications Afebrile Awaiting long-term placement He was evaluated by a neuropsychiatrist again yesterday We are continuing Xanax for his anxiety along opioids Bowel regimen on board No active suicidal ideation He did rest comfortably with use of Restoril His insomnia is probably related to his bipolar disorder Full code DVT prophylaxis on board Awaiting placement Attestations Medical Necessity Statement*: Awaiting placement Time Spent in Patient Care: 10 Coding Level of Care Code Acute Nurse Practitioner for Chg Fwd Diagnoses Displaced fracture of proximal end of humerus S42.209A Traumatic compression fracture of thoracic vertebra S22.000A Traumatic compression fracture of T12 thoracic vertebra S22.080A Compression fracture Osteonecrosis M87.9 S/P kyphoplasty Z98.890
[2022-06-05] MEDS: HYDROcodone-acetaminophen 5-325 mg Tablet PO ×3 (10:51→23:02)
--- NOTE | 2022-06-05 11:02 | PC.CHAP ---
Pastoral Care Encounter/Spiritual Assessment Type of Contact [] Declined careers counsellor visit [] Patient/Family/Request visit [] Outpatient visit [] Follow-up visit [] Physician referral [] Code/Alert [x] Routine visit [] Staff referral [] Actively dying [] Patient sleeping [] Family support [] [] Out of room [] Palliative care [] [x] Receiving care in room [] Pre-surgical visit [] Trauma [] Long length of stay [] ICU visit [] Other: Relational/Emotional Strength [] Patient feels connected with others/family/visitors/staff [] Distress [] Loneliness/isolation [] Abandonment Spirituality of Patient [] Person of Sherire [] Attends Religious of their Sherrie [] Believes in Prayer [] Reads Bible or Buddhism materials [] There are Spiritual issues to be addressed Accounts Payable Coordinator Interventions [x] Prayer [] Active listening [] Non-anxious presence [] Spiritual/emotional support [] Crisis/trauma care [] Spiritual counseling [] Bereavement support [] Provided bereavement packet [] Provided Bible/devotional materials [] Provided toy/stuffed animal, coloring book to patient or family member [] Provided Communion [] Anointing/Cory [] Salvation [x] Completed spiritual assessment [] Other: Impact on Illness or Injury [] Angry [] Fearful [] Anxious [] Often cries [] Exhaustion [] Unable to work [] Unable to attend temple [] Unable to walk/stand [] Unable to read [] Unable to drive [] Unable to eat/drink [] Unable to sleep [] Unable to be with family [] Patient intubated [] Other: Summary Time spent with patient 5 min
[2022-06-05] MEDS: HYDROmorphone 1 mg/mL INJ 1 mL 0.2 MG IVP (11:15)
[2022-06-05] MEDS: doxepin 25 mg Capsule PO (20:35)
[2022-06-05] MEDS: atorvastatin 40 mg Tablet PO (20:35)
[2022-06-05] MEDS: temazepam 15 mg Capsule PO (20:35)
[2022-06-06] VITALS (14 sets, daily range): BP systolic 148–185; BP diastolic 72–87; PULSE 67–84; RESP 16–20; TEMP 36.4–36.8; O2SAT 92–96
[2022-06-06] MEDS: ALPRAZolam 0.5 mg Tablet PO ×2 (01:51→17:01)
[2022-06-06] MEDS: oxyCODONE-APAP 5-325 mg Tablet 1 TAB PO (01:51)
[2022-06-06] MEDS: HYDROmorphone 1 mg/mL INJ 1 mL 0.2 MG IVP ×4 (02:17→19:12)
[2022-06-06] MEDS: ketorolac 30 mg/mL INJ IVP (02:17)
--- NOTE | 2022-06-06 02:34 | PC.NURSE ---
Patient's called Mirela KIRK stating patient had dropped his call light and he was in a lot of pain. Patient then started yelling out into the hallway for someone to come in. Mirela KIRK rounded on patient, gave him his call light, and told him we would get him something for pain. Patient again called his and stated that he feels like he was hurting worse than before surgery and felt like something went wrong. Patient and patient's on phone demanded that we call the doctor. The patient was told that we would give him something for pain, and if that didn't work we would get ahold of the doctor. Oral pain medication and anti-anxiety medication was administered. Patient's became very agitated, stating that if he didn't get his pain under control, he would become suicidal in 20 minutes. Patient also stated this as well. This nurse as well as other nursing staff educated the patient that we would give him pain meds first because patient had been sleeping and hadn't had pain medication, and if that didn't work, we would get ahold of the doctor. Patient's began saying that the nurses refused to call the doctor. Mirela KIRK explained to patient and patient's that we would contact the doctor if we could not get pain under control. Patient's threatened to oseas and call administration as well as the doctor on Wednesday. This nurse had Eloisa PEPEchargeback analyst speak with patient and patient's . Patient and patient's was not satisfied until IV pain medication was given. Patient began falling asleep when pushing IV pain medication.
[2022-06-06] MEDS: lisinopril 20 mg Tablet 40 MG PO (06:46)
[2022-06-06] MEDS: HYDROcodone-acetaminophen 5-325 mg Tablet PO ×4 (06:46→23:39)
--- NOTE | 2022-06-06 07:24 | PC.NURSE ---
Report given to Gabriele PEPE
--- NOTE | 2022-06-06 08:52 | PM.PN ---
Subjective Subjective: Benjamin is stating that he thinks he cracked his back again and asking for more pain medication I did tell him that he is already on high strength for opioids including p.o. and IV He was resting comfortably, laying supine His eyes were shutting down while he was talking I also spoke with his I will repeat x-ray of his back Vitals/I&O/Wt Last Vital Signs Temp 97.8 F 06/06/22 08:00 Pulse 71 06/06/22 08:00 Resp 16 06/06/22 08:00 BP 156/82 06/06/22 08:00 Pulse Ox 93 06/06/22 08:00 O2 Del Method 06/06/22 08:00 O2 Flow Rate 2 06/05/22 20:00 06/05/22 06/06/22 06/06/22 22:59 06:59 14:59 Intake Total 1200 / 1800 0 / 1800 Output Total 950 / 950 Balance 250 / 850 0 / 850 Physical Exam Narrative: Patient lying supine Awake and alert However goes back to sleep pretty easily Abdomen soft Able to wiggle his toes Sensations intact of lower extremities Currently on room air Hypertensive Does not seem to be in any distress Urinary Catheter Management: Nuñez: Cath Placed During This Visit: no Reason for Continuing Indwelling Catheter: Not indwelling catheter Data : 06/04/22 04:46 06/04/22 04:46 A&P Assessment and plan (1) S/P kyphoplasty: (2) Displaced fracture of proximal end of humerus: (3) Traumatic compression fracture of thoracic vertebra: (4) Traumatic compression fracture of T12 thoracic vertebra: (5) Compression fracture: (6) Humerus fracture: (7) Osteonecrosis: Plan Status post kyphoplasty Patient is complaining of back pain which is not controlled on current opioid regimen I am reluctant to increase the dose of opioids for now because of risk of respiratory depression opiate overdose He does have intact sensation of lower extremities, able to wiggle his toes Repeat imaging of his back My concern is related to respiratory depression which he experienced after we increase his opioids last time his respiratory rate was around 10 and he required BiPAP for a while He has been evaluated multiple times by psychiatrist Currently he is on anxiolytics and Restoril for insomnia Full code DVT prophylaxis on board Awaiting [facility] placement Attestations Medical Necessity Statement*: Awaiting placement Time Spent in Patient Care: 30 Coding Level of Care Code Acute Optical Store Manager for Chg Fwd Diagnoses S/P kyphoplasty Z98.890 Displaced fracture of proximal end of humerus S42.209A Traumatic compression fracture of thoracic vertebra S22.000A Traumatic compression fracture of T12 thoracic vertebra S22.080A Compression fracture Humerus fracture S42.309A Osteonecrosis M87.9
--- NOTE | 2022-06-06 08:56 | XRR_ITS ---
PROCEDURE INFORMATION: Exam: XR Spine; Lumbar Exam date and time: 06/06/2022 10:20 AM Age: 61 years old Clinical indication: Pain: Low back pain TECHNIQUE: Imaging protocol: XR of the spine. Exam focused on the lumbar spine. Views: 1 view. 1 view. COMPARISON: CT lumbar spine wo con* [id number] 05/24/2022 5:15 PM FINDINGS: Bones/joints: Suboptimal examination the upper portions of the lumbar spine are not optimally visualized. There is no lateral view available. The lower portion of the lumbar spine does not show gross abnormality. Incidentally noted are bilateral metallic hip arthroplasty. Repeat examination is recommended Soft tissues: Normal. XR/XR lumbar spine 1V port [id number] IMPRESSION: Nondiagnostic incomplete examination repeat exam is recommended
[2022-06-06] MEDS: docusate sodium 100 mg Capsule PO (10:11)
[2022-06-06] MEDS: tamsulosin 0.4 mg Capsule PO (10:12)
[2022-06-06] MEDS: apixaban 5 mg Tablet PO ×2 (10:12→17:01)
[2022-06-06] MEDS: metoprolol succinate ER (24 HR) 25 mg Tablet PO ×2 (10:12→17:01)
[2022-06-06] MEDS: FUROsemide 40 mg Tablet PO (10:13)
[2022-06-06] MEDS: pantoprazole DR 40 mg Tablet PO ×2 (10:13→17:01)
[2022-06-06] MEDS: sertraline 50 mg Tablet PO (10:13)
[2022-06-06] MEDS: nystatin powder 15 gm Btl 1 APPLIC TOPICAL (10:38)
[2022-06-06] MEDS: acetaminophen 325 mg Tablet 650 MG PO ×2 (10:38→20:16)
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
[2022-06-06] MEDS: sertraline 50 mg Tablet 25 MG PO (17:01)
[2022-06-06] MEDS: atorvastatin 40 mg Tablet PO (20:15)
[2022-06-06] MEDS: quetiapine 25 mg Tablet 50 MG PO (20:15)
[2022-06-06] MEDS: temazepam 15 mg Capsule PO (20:16)
[2022-06-06] MEDS: doxepin 25 mg Capsule PO (20:17)
[2022-06-06 21:33] LABS: Glucose Point of Care 112 mg/dL (70-110)
[2022-06-06] MEDS: methocarbamol 500 mg Tablet PO (23:39)
[2022-06-07] VITALS (8 sets, daily range): BP systolic 144–177; BP diastolic 78–103; PULSE 73–86; RESP 15–20; TEMP 36.4–36.9; O2SAT 93–95
[2022-06-07] MEDS: lisinopril 20 mg Tablet 40 MG PO (05:05)
[2022-06-07] MEDS: HYDROcodone-acetaminophen 5-325 mg Tablet PO ×2 (05:05→17:56)
[2022-06-07 05:13] LABS: Basophils % 0.6 %; Eosinophils # 0.1 10^3/uL (0.0-0.8); Eosinophils % 1.5 %; Hematocrit 36.6 % (42.0-52.0); Hemoglobin 11.4 g/dL (11.7-16.6); Lymphocytes # 1.2 10^3/uL (0.8-4.8); Mean Corpuscular HGB Conc 31.1 g/dL (30.0-36.0); Mean Corpuscular Hemoglobin 33.5 pg (28.0-34.0); Mean Corpuscular Volume 107.6 fl (80-94); Mean Platelet Volume 10.9 fL (7.4-10.4); Monocytes # 0.6 10^3/uL (0.2-0.9); Neutrophils # 5.08 10^3/uL (1.8-7.7); Neutrophils % 71.6 %; Nucleated Red Blood Cells % 0 %; Platelet Count 246 10^3/cmm (130-400); Red Cell Distribution Width 15.5 % (12.1-15.1); White Blood Count 7.1 10^3/uL (4.0-10.0)
[2022-06-07 05:34] LABS: Anion Gap 14.5 (5-19); Blood Urea Nitrogen 16 mg/dL (8-23); Calcium 8.9 mg/dL (8.5-10.5); Carbon Dioxide 27 mmol/L (22-29); Chloride 100 mmol/L (98-107); Glucose 98 mg/dL (65-115); Osmolality Calculated 287 mOsm/kg (285-295); Potassium 3.5 mmol/L (3.5-5.1); Sodium 138 mmol/L (136-145)
[2022-06-07 06:21] LABS: Glucose Point of Care 123 mg/dL (70-110)
[2022-06-07 06:21] LABS: Glucose Point of Care 105 mg/dL (70-110)
--- NOTE | 2022-06-07 07:04 | PC.NURSE ---
Report given to Radha PEPE at this time
[2022-06-07] MEDS: apixaban 5 mg Tablet PO ×2 (09:29→17:56)
[2022-06-07] MEDS: tamsulosin 0.4 mg Capsule PO (09:29)
[2022-06-07] MEDS: FUROsemide 40 mg Tablet PO (09:30)
[2022-06-07] MEDS: metoprolol succinate ER (24 HR) 25 mg Tablet PO ×2 (09:30→17:56)
[2022-06-07] MEDS: acetaminophen 325 mg Tablet 650 MG PO ×2 (09:30→20:09)
[2022-06-07] MEDS: sertraline 50 mg Tablet 75 MG PO (09:31)
[2022-06-07] MEDS: pantoprazole DR 40 mg Tablet PO ×2 (09:31→17:56)
--- NOTE | 2022-06-07 10:20 | XRR_ITS ---
PROCEDURE INFORMATION: Exam: XR Spine; Lumbar Exam date and time: 06/07/2022 4:08 PM Age: 61 years old Clinical indication: Pain: Chronic low back pain; Prior surgery; Surgery type: Tspine TECHNIQUE: Imaging protocol: XR of the spine. Exam focused on the lumbar spine. Views: 1 view. 1 view. COMPARISON: CR (PELVIS, ) 06/06/2022 10:20 AM FINDINGS: Bones/joints: Multiple vertebroplasties in the thoracolumbar spine. Bilateral total hip replacement. Dextroscoliosis. Mild to moderate multilevel spine degenerative changes including degenerative disc disease, spondylosis and facet degenerative changes. Soft tissues: Normal. XR/XR lumbar spine 1V port [id number] IMPRESSION: 1. Multiple vertebroplasties in the thoracolumbar spine. 2. Mild to moderate multilevel spine degenerative changes including degenerative disc disease, spondylosis and facet degenerative changes.
--- NOTE | 2022-06-07 10:20 | PM.PN ---
Subjective Subjective: Patient is laying supine Complaining of back pain Stating that I should call his and tell her to come here to support him for the physical therapy He did not participate with PT yesterday He has been having regular bowel movement He looks pretty calm and comfortable at the time of evaluation Vitals/I&O/Wt Last Vital Signs Temp 98.2 F 06/07/22 08:00 Pulse 79 06/07/22 08:00 Resp 16 06/07/22 08:00 BP 177/78 06/07/22 08:00 Pulse Ox 94 06/07/22 08:00 O2 Del Method 06/07/22 08:00 O2 Flow Rate 2 06/06/22 20:22 06/06/22 06/07/22 06/07/22 22:59 06:59 14:59 Intake Total 50 / 290 Output Total 275 / 275 Balance -275 / -35 50 / 15 Physical Exam Narrative: Patient laying calmly in his bed Laying supine Currently on room air No signs of confusion No new focal deficit Lower extremity no signs of sensory deficit Abdomen soft Awake and alert Nuñez catheter draining dilute urine Urinary Catheter Management: Nuñez: Cath Placed During This Visit: yes Reason for Continuing Indwelling Catheter: Accurate Measurement of Urinary Output in Critically Ill Patients Urinary Catheter Date of Insertion: 05/29/22 Urinary Catheter Time of Insertion: 00:00 Data : 06/07/22 04:52 06/07/22 04:52 Micro: Microbiology 06/05/22 15:32 Enteric Pathogens (PCR) - Final Stool A&P Assessment and plan (1) S/P kyphoplasty: (2) Displaced fracture of proximal end of humerus: (3) Traumatic compression fracture of thoracic vertebra: (4) Traumatic compression fracture of T12 thoracic vertebra: (5) Compression fracture: (6) Post-traumatic stress disorder, chronic: (7) Major depressive disorder, recurrent severe without psychotic features: (8) History of posttraumatic stress disorder (PTSD): (9) Atrial fibrillation, chronic: Plan Status post kyphoplasty Patient is not participating with PT I have added Miracle yesterday Asked patient to work with PT so we can arrange she is released from the hospital to custodial He has been having regular bowel movement No sign of constipation A. fib without RVR continue Eliquis No postop complications Full code Appreciate neuropsych evaluation, his Zoloft dose has been increased, Seroquel has been added for nighttime Attestations Medical Necessity Statement*: Awaiting placement Time Spent in Patient Care: 30 Coding Level of Care Code Acute [place] [employer] for Chg Fwd Diagnoses S/P kyphoplasty Z98.890 Displaced fracture of proximal end of humerus S42.209A Traumatic compression fracture of thoracic vertebra S22.000A Traumatic compression fracture of T12 thoracic vertebra S22.080A Compression fracture Post-traumatic stress disorder, chronic F43.12 Major depressive disorder, recurrent severe without psychotic features F33.2 History of posttraumatic stress disorder (PTSD) Z86.59 Atrial fibrillation, chronic I48.20
[2022-06-07] MEDS: HYDROmorphone 1 mg/mL INJ 1 mL 0.2 MG IVP (13:08)
--- NOTE | 2022-06-07 16:10 | W.PM.PSYCONS ---
Providers/Reason for Consult Consulting Physican/Specialty*: Paul Pantoja Reason for Consult*: depression Attending Physician: Woody Inman MD Primary Care Provider: DARSHANA Gallo Psych Consult HPI History of Present Illness Jeremie Alexander is a 61 year old male with a history of major depressive disorder along with PTSD. He continues to struggle with complaints of pain. He reports that he has been seeing his parents and describes this as a recollection of his previous traumatic experiences during childhood. He also reported hearing voices at times. He had reported that he needed a stronger antidepressant. He had acknowledged a history of 11 previous inpatient hospitalizations. The patient was seen in the presence of his . The patient had endorsed having continued depression for several years and states that it has been managed by his primary psychiatrist in [facility] before he moved here. The patient reports having sleep continuity disruption and endorsed having nightmares with no improvement yet on the Seroquel. The patient continued to struggle with managing boredom and stated that he had more pain sitting here. He was able to engage in physical therapy today and reported that he was curious as to when he would be going to rehabilitation. Meds Home Medications and Allergies Home Medications Medication Instructions Recorded Confirmed Last Taken Type ferrous sulfate 325 mg (65 mg 325 mg PO BID 11/23/20 05/29/22 03/27/22 History iron) tablet tamsulosin 0.4 mg capsule 0.4 mg PO QAM 11/23/20 05/29/22 1 Day Ago History ~05/28/22 nitroglycerin 0.4 mg sublingual 0.4 mg sublingual Q5M PRN Chest 10/21/21 05/29/22 03/27/22 History tablet (Nitrostat) Pain metoprolol succinate 25 mg 25 mg PO BID 03/19/22 05/29/22 05/29/22 History tablet,extended release 24 hr lisinopril 40 mg tablet 40 mg PO QAM 03/27/22 05/29/22 05/29/22 History potassium gluconate 595 mg (99 mg) 595 mg PO QAM 03/27/22 05/29/22 2 Days Ago History tablet ~05/27/22 apixaban 5 mg tablet (Eliquis) 5 mg PO BID #60 tabs 03/31/22 05/29/22 05/29/22 Rx furosemide 40 mg tablet (Lasix) 40 mg PO QAM #30 tabs 03/31/22 05/29/22 05/29/22 Rx melatonin 5 mg capsule 5 mg PO BEDTIME #30 caps 03/31/22 05/29/22 Unknown Rx tdkwufhg-nzn-wozdt acid 300 1 tab PO DAILY 03/31/22 05/29/22 05/29/22 History mcg-lycopene 600 mcg-lutein 300 mcg tablet (Centrum Silver Men) loperamide 2 mg capsule (Imodium 2 mg PO QID PRN loose stool #14 04/23/22 05/29/22 Unknown Rx A-D) caps omeprazole 20 mg capsule,delayed 20 mg PO BID 30 days #60 caps 04/23/22 05/29/22 Unknown Rx release tramadol 50 mg tablet (Ultram) 50 mg PO Q6H PRN pain #120 tabs 04/28/22 05/29/22 Unknown Rx CUFF AND COLLAR SLING #1 ea 05/07/22 05/29/22 Unknown Rx dicyclomine 20 mg tablet 20 mg PO TID #90 tabs 05/18/22 05/29/22 Unknown Rx methocarbamol 500 mg tablet 500 mg PO TID PRN muscle spasm, 05/19/22 05/29/22 Unknown Rx pain 7 days #21 tabs oxycodone-acetaminophen 5 mg-325 1 tab PO Q6H PRN pain 7 days #28 05/19/22 05/29/22 Unknown Rx mg tablet (Percocet) tabs rosuvastatin 20 mg tablet 20 mg PO BEDTIME #30 tabs 05/19/22 05/29/22 2 Weeks Ago Rx ~05/15/22 hydroxyzine pamoate 25 mg capsule 25 mg PO .HS PRN sleep #30 caps 05/20/22 05/29/22 Unknown Rx ondansetron 8 mg disintegrating 8 mg PO Q8H 5 days #15 tabs 05/20/22 05/29/22 Unknown Rx tablet quetiapine 200 mg tablet (Seroquel) 200 mg PO .HS #30 tabs 05/20/22 05/29/22 2 Weeks Ago Rx ~05/15/22 sertraline 50 mg tablet (Zoloft) 50 mg PO QAM #30 tabs 05/20/22 05/29/22 05/29/22 Rx Allergies Allergy/AdvReac Type Severity Reaction Status Date / Time ticagrelor [From Brilinta] Allergy Unknown ALGY-Hives Verified 05/20/22 11:30 trazodone Allergy Unknown ADR-Nightma Verified 05/20/22 11:30 re Current Medications Current Medications Generic Name Dose Route Start Last Admin Trade Name Freq PRN Reason Stop Dose Admin Acetaminophen 650 mg 05/29/22 23:06 06/07/22 09:30 Acetaminophen 325 Mg Tablet PO 650 mg Q6H PRN Administration Mild/Mod Pain Or Temp >/= 101 Hydrocodone Bitart/Acetaminophen 1 - 2 tab 06/03/22 14:40 06/07/22 05:05 Hydrocodone-Acetaminophen 5-325 Mg Tablet PO 2 tab Q4H PRN Administration MODERATE TO SEVERE PAIN Apixaban 5 mg 05/30/22 09:00 06/07/22 09:29 Apixaban 5 Mg Tablet PO 5 mg BID SAVANAH Administration Atorvastatin Calcium 40 mg 05/30/22 21:00 06/06/22 20:15 Atorvastatin 40 Mg Tablet PO 40 mg BEDTIME SAVANAH Administration Docusate Sodium 100 mg 06/03/22 18:00 06/07/22 09:31 Docusate Sodium 100 Mg Capsule PO Not Given BID SAVANAH Doxepin HCl 25 mg 06/04/22 21:00 06/06/22 20:17 Doxepin 25 Mg Capsule PO 25 mg BEDTIME SAVANAH Administration Furosemide 40 mg 06/03/22 09:00 06/07/22 09:30 Furosemide 40 Mg Tablet PO 40 mg DAILY SAVANAH Administration Hydromorphone HCl 0.2 mg 06/04/22 09:43 06/07/22 13:08 Hydromorphone 1 Mg/Ml Inj 1 Ml IVP 0.2 mg Q4H PRN Administration pain Lisinopril 40 mg 05/30/22 06:00 06/07/22 05:05 Lisinopril 20 Mg Tablet PO 40 mg QAM SAVANAH Administration Methocarbamol 500 mg 05/29/22 23:13 06/06/22 23:39 Methocarbamol 500 Mg Tablet PO 500 mg TID PRN Administration muscle spasm, pain Metoprolol Succinate 25 mg 05/30/22 09:00 06/07/22 09:30 Metoprolol Succinate Er (24 Hr) 25 Mg Tablet PO 25 mg BID SAVANAH Administration Nystatin 1 applic 06/01/22 09:30 06/07/22 09:31 Nystatin Powder 15 Gm Btl TOPICAL Not Given BID SAVANAH Ondansetron HCl 4 mg 05/29/22 23:06 05/31/22 04:45 Ondansetron 2 Mg/Ml Sdv 2 Ml IVP 4 mg Q8H PRN Administration vomiting, or N/V if npo Pantoprazole Sodium 40 mg 05/30/22 18:00 06/07/22 09:[address] 40 Mg Tablet PO 40 mg BID SAVANAH Administration Quetiapine Fumarate 50 mg 06/06/22 21:00 06/06/22 20:15 Quetiapine 25 Mg Tablet PO 50 mg BEDTIME SAVANAH Administration Sertraline HCl 75 mg 06/07/22 09:00 06/07/22 09:31 Sertraline 50 Mg Tablet PO 75 mg DAILY SAVANAH Administration Tamsulosin HCl 0.4 mg 06/03/22 09:00 06/07/22 09:29 Tamsulosin 0.4 Mg Capsule PO 0.4 mg DAILY SAVANAH Administration Temazepam 15 mg 06/04/22 21:00 06/06/22 20:16 Temazepam 15 Mg Capsule PO 15 mg BEDTIME PRN Administration INSOMNIA PFSH NPU PFSH: Medical History Acute ischemic stroke Afib Anxiety and depression Atrial fibrillation Back pain CAD (coronary artery disease) Chest pain Chest pain Chronic anticoagulation Diabetes Flu-like symptoms History of posttraumatic stress disorder (PTSD) HTN (hypertension) Hypertensive urgency Lacunar infarction Major depressive disorder, 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 His speech was monotone and slow at times with normal prosody. His mood was described as depressed. His affect was restricted. There was no evidence of any abnormal involuntary motor movements tics or tremors appreciated. His attention appeared fair. He did not appear to be responding to internal stimuli although he endorsed vague auditory and visual hallucinations. His attention span was adequate. he was alert and oriented to person place and time. His fund of knowledge was average to below average. His insight was poor. His judgment is poor. His impulse control was fair at this time Vitals/I&O/Wt Last Vital Signs Temp 97.8 F 06/07/22 12:00 Pulse 79 06/07/22 12:00 Resp 18 06/07/22 13:08 BP 144/82 06/07/22 12:00 Pulse Ox 94 06/07/22 13:08 O2 Del Method 06/07/22 12:00 O2 Flow Rate 2 06/06/22 20:22 06/07/22 06/07/22 06/07/22 06:59 14:59 22:59 Intake Total 50 Output Total 1949 Balance -1949 Physical Exam Urinary Catheter Management: Nuñez: Cath Placed During This Visit: yes Reason for Continuing Indwelling Catheter: Accurate Measurement of Urinary Output in Critically Ill Patients Urinary Catheter Date of Insertion: 05/29/22 Urinary Catheter Time of Insertion: 00:00 Data NPU : 06/07/22 04:52 06/07/22 04:52 Micro: Microbiology 06/05/22 15:32 Enteric Pathogens (PCR) - Final Stool Microbiology 06/05/22 15:32 Stool Enteric Pathogens (PCR) - Final A&P Assessment and plan (1) Suicidal thoughts: (2) Intractable pain: (3) Post-traumatic stress disorder, chronic: (4) Major depressive disorder, recurrent severe without psychotic features: (5) Compression fracture: (6) Osteonecrosis: (7) Humerus fracture: Plan This is a 61-year-old white male with a long history of mental health treatment with past trauma who presents with depression, reported suicidal statements against the backdrop of physical health challenges open to medication adjustments. 1.? Reviewed outpatient records further, patient has had multiple medication trials with failure along with psychotherapy to manage depression. I discussed alternatives long-term for treating his depression including transcranial magnetic stimulation and intranasal ketamine. I will provide further information to the patient and the tomorrow. I I discussed with the patient about a change in medication and he was agreeable to stopping Zoloft and beginning Cymbalta 30 mg in the morning to target depression. Doxepin will be discontinued due to lack of efficacy. Seroquel will be increased to 100 mg tonight as an adjunct for treating depression 2.? Recommended distraction through some activity to help with managing chronic pain. 3. Will follow. Involuntary Hold Information 96 Hour Hold: 96 Hour Involuntary Admission: No Attestations NPU Medical Necessity Statement*: nA Coding Level of Care Code Established Pt Acute Crossing Guard for Chg Fwd Patient Type Established History Problem Focused Exam Problem Focused Medical Decision Making Straight Forward Diagnoses Suicidal thoughts R45.851 Intractable pain R52 Post-traumatic stress disorder, chronic F43.12 Major depressive disorder, recurrent severe without psychotic features F33.2 Compression fracture Osteonecrosis M87.9 Humerus fracture S42.309A
[2022-06-07] MEDS: atorvastatin 40 mg Tablet PO (20:09)
[2022-06-07] MEDS: quetiapine 100 mg Tablet PO (20:09)
[2022-06-07] MEDS: methocarbamol 500 mg Tablet PO (20:09)
[2022-06-08] VITALS (8 sets, daily range): BP systolic 111–146; BP diastolic 72–81; PULSE 69–86; RESP 14–18; TEMP 36.3–37.1; O2SAT 91–97
[2022-06-08] MEDS: HYDROcodone-acetaminophen 5-325 mg Tablet PO ×4 (06:27→19:16)
[2022-06-08] MEDS: lisinopril 20 mg Tablet 40 MG PO (06:27)
[2022-06-08] MEDS: apixaban 5 mg Tablet PO ×2 (08:45→17:43)
[2022-06-08] MEDS: FUROsemide 40 mg Tablet PO (08:46)
[2022-06-08] MEDS: tamsulosin 0.4 mg Capsule PO (08:46)
[2022-06-08] MEDS: metoprolol succinate ER (24 HR) 25 mg Tablet PO ×2 (08:46→17:43)
[2022-06-08] MEDS: duloxetine 30 mg Capsule PO (08:46)
[2022-06-08] MEDS: pantoprazole DR 40 mg Tablet PO ×2 (08:47→17:44)
[2022-06-08] MEDS: nystatin powder 15 gm Btl 1 APPLIC TOPICAL ×2 (08:47→17:42)
--- NOTE | 2022-06-08 09:52 | P.PN_ITS ---
Subjective Subjective: And is happy with his progress today and he was able to rest comfortably last night Pain is well managed He was eating breakfast in good spirits is at the bedside feeding him breakfast Patient does not want his Nuñez catheter to be removed He is waiting for level 2 prior auth approval Vitals/I&O/Wt Last Vital Signs Temp 98.3 F 06/08/22 08:00 Pulse 86 06/08/22 09:51 Resp 18 06/08/22 09:51 BP 146/81 06/08/22 08:00 Pulse Ox 94 06/08/22 09:51 O2 Del Method 06/08/22 09:51 O2 Flow Rate 2 06/06/22 20:22 06/07/22 06/08/22 06/08/22 22:59 06:59 14:59 Intake Total 600 / 600 0 / 600 360 / 360 Output Total 600 / 2550 Balance 600 / -1350 -600 / -1950 360 / 360 Physical Exam Narrative: Patient is awake and alert Was eating breakfast Good spirits Not complaining of active pain Nuñez catheter draining dilute urine Currently on 2 L Abdomen soft In good spirits Euvolemic No new focal deficit No signs of cauda equina Urinary Catheter Management: Nuñez: Cath Placed During This Visit: yes Reason for Continuing Indwelling Catheter: Other Urinary Catheter Date of Insertion: 05/29/22 Urinary Catheter Time of Insertion: 00:00 Data : 06/07/22 04:52 06/07/22 04:52 A&P Assessment and plan (1) S/P kyphoplasty: (2) Displaced fracture of proximal end of humerus: (3) Traumatic compression fracture of thoracic vertebra: (4) Traumatic compression fracture of T12 thoracic vertebra: (5) Compression fracture: (6) Osteonecrosis: (7) Humerus fracture: Plan Patient is waiting for level 2 prior authorization Medically he is cleared to be discharged I will continue his Restoril for nighttime With up titration of Zoloft and addition of Seroquel his mood and behavior has improved Appreciate neuropsych recommendations Status post kyphoplasty Continue bowel regimen with opioids Patient had 1 bowel movement yesterday Adequate urine output Currently on 2 L Nuñez catheter will remain in place until he is discharged to the [facility] Attestations Medical Necessity Statement*: Awaiting placement Time Spent in Patient Care: 20 Coding Level of Care Code Acute Electric Cell Tender for Sheryasg Fwd Diagnoses S/P kyphoplasty Z98.890 Displaced fracture of proximal end of humerus S42.209A Traumatic compression fracture of thoracic vertebra S22.000A Traumatic compression fracture of T12 thoracic vertebra S22.080A Compression fracture Osteonecrosis M87.9 Humerus fracture S42.309A
[2022-06-08] MEDS: ondansetron 2 mg/ML SDV 2 mL 4 MG IVP (10:34)
[2022-06-08] MEDS: HYDROmorphone 1 mg/mL INJ 1 mL 0.2 MG IVP (19:53)
[2022-06-08] MEDS: temazepam 15 mg Capsule PO (20:01)
[2022-06-08] MEDS: atorvastatin 40 mg Tablet PO (20:01)
[2022-06-08] MEDS: quetiapine 100 mg Tablet PO (20:01)
[2022-06-09] VITALS (7 sets, daily range): BP systolic 93–111; BP diastolic 63–72; PULSE 69–77; RESP 15–20; TEMP 36.6–36.9; O2SAT 87–94
[2022-06-09] MEDS: HYDROcodone-acetaminophen 5-325 mg Tablet PO ×4 (05:15→20:53)
[2022-06-09] MEDS: lisinopril 20 mg Tablet 40 MG PO (05:15)
[2022-06-09 06:22] LABS: Glucose Point of Care 117 mg/dL (70-110)
--- NOTE | 2022-06-09 07:22 | PC.NURSE ---
Gorman not drng appropraitely at this time. Bladder scan notes 110 ml of urine present. Catheter flushed and catheter readvanced. Unable to obtain urine output. Attempt reinsertion of gorman x 1 unsuccessful. Pt voided x 1. Will pass to oncoming RN. Charge nurse aware.
[2022-06-09] MEDS: nystatin powder 15 gm Btl 1 APPLIC TOPICAL ×2 (09:35→17:17)
[2022-06-09] MEDS: tamsulosin 0.4 mg Capsule PO (09:36)
[2022-06-09] MEDS: metoprolol succinate ER (24 HR) 25 mg Tablet PO ×2 (09:36→17:17)
[2022-06-09] MEDS: duloxetine 30 mg Capsule PO (09:36)
--- NOTE | 2022-06-09 09:37 | PM.PN ---
Subjective Subjective: Patient is stating that he is feeling better with his current antidepression regimen Able to sleep well In good spirits Nuñez catheter clogged hence removed last night Patient is able to void on his own And participate with PT as well Pain well managed Bowel movement regular Vitals/I&O/Wt Last Vital Signs Temp 97.9 F 06/09/22 03:55 Pulse 71 06/09/22 08:00 Resp 19 H 06/09/22 08:00 BP 97/63 06/09/22 08:00 Pulse Ox 92 06/09/22 08:00 O2 Del Method 06/08/22 19:59 O2 Flow Rate 96 06/08/22 19:59 06/08/22 06/09/22 06/09/22 22:59 06:59 14:59 Intake Total 360 / 960 Output Total 1100 / 1100 175 / 175 Balance -740 / -140 -175 / -175 Physical Exam Narrative: Patient is in good spirits Awake and alert Pleasant and cooperative No new focal deficit No signs of cauda equina Nuñez cath removed No signs of fluid overload Abdomen soft Awake and alert Currently on room air No acute resp distress Urinary Catheter Management: Nuñez: Cath Placed During This Visit: yes Reason for Continuing Indwelling Catheter: Acute Urinary Retention or Obstruction Urinary Catheter Date of Insertion: 05/29/22 Urinary Catheter Time of Insertion: 00:00 Data : 06/07/22 04:52 06/07/22 04:52 A&P Assessment and plan (1) S/P kyphoplasty: (2) Displaced fracture of proximal end of humerus: (3) Traumatic compression fracture of thoracic vertebra: (4) Traumatic compression fracture of T12 thoracic vertebra: (5) Compression fracture: Plan Awaiting placement Continue Eliquis for his A. fib Pain well managed For his bipolar disorder is doing well with Seroquel, Zoloft, Back pain and right arm pain well managed with IV Dilaudid and hydrocodone Regular bowel movement every day Continue low-dose Lasix Awaiting placement Full code Nuñez catheter removed 06/08 Attestations Medical Necessity Statement*: Awaiting placement Time Spent in Patient Care: 15 Coding Level of Care Code Acute Professor Of Vegetable Science for Chg Fwd Diagnoses S/P kyphoplasty Z98.890 Displaced fracture of proximal end of humerus S42.209A Traumatic compression fracture of thoracic vertebra S22.000A Traumatic compression fracture of T12 thoracic vertebra S22.080A Compression fracture
[2022-06-09] MEDS: apixaban 5 mg Tablet PO ×2 (09:38→17:17)
[2022-06-09] MEDS: pantoprazole DR 40 mg Tablet PO ×2 (09:38→17:17)
[2022-06-09] MEDS: FUROsemide 40 mg Tablet PO (09:38)
[2022-06-09] MEDS: ondansetron 2 mg/ML SDV 2 mL 4 MG IVP (10:40)
[2022-06-09] MEDS: methocarbamol 500 mg Tablet PO ×2 (10:54→17:36)
[2022-06-09 12:16] LABS: Glucose Point of Care 188 mg/dL (70-110)
[2022-06-09] MEDS: acetaminophen 325 mg Tablet 650 MG PO (17:35)
[2022-06-09] MEDS: quetiapine 100 mg Tablet PO (20:53)
[2022-06-09] MEDS: atorvastatin 40 mg Tablet PO (20:53)
[2022-06-10] VITALS (10 sets, daily range): BP systolic 102–155; BP diastolic 57–84; PULSE 68–84; RESP 16–18; TEMP 36.4–36.9; O2SAT 91–98
[2022-06-10] MEDS: acetaminophen 325 mg Tablet 650 MG PO (00:24)
[2022-06-10] MEDS: lisinopril 20 mg Tablet 40 MG PO (06:15)
[2022-06-10] MEDS: methocarbamol 500 mg Tablet PO ×2 (06:16→18:00)
--- NOTE | 2022-06-10 07:03 | PC.NURSE ---
Report given to Gabrielle PEPE at this time
[2022-06-10] MEDS: pantoprazole DR 40 mg Tablet PO ×2 (08:13→18:00)
[2022-06-10] MEDS: HYDROcodone-acetaminophen 5-325 mg Tablet PO ×3 (08:14→20:55)
[2022-06-10] MEDS: metoprolol succinate ER (24 HR) 25 mg Tablet PO ×2 (08:14→18:00)
[2022-06-10] MEDS: duloxetine 30 mg Capsule PO (08:14)
[2022-06-10] MEDS: tamsulosin 0.4 mg Capsule PO (08:15)
[2022-06-10] MEDS: apixaban 5 mg Tablet PO ×2 (08:15→18:00)
[2022-06-10] MEDS: FUROsemide 40 mg Tablet PO (08:15)
[2022-06-10] MEDS: ondansetron 4 MG Tablet PO (09:15)
[2022-06-10] MEDS: nystatin powder 15 gm Btl 1 APPLIC TOPICAL ×2 (09:15→18:05)
--- NOTE | 2022-06-10 10:05 | P.PN_ITS ---
Subjective Subjective: Patient is nauseous however no vomiting Afebrile Normal hemodynamics We will give him Zofran He is having regular bowel movement every day No active emesis Vitals/I&O/Wt Last Vital Signs Temp 98.3 F 06/10/22 07:50 Pulse 79 06/10/22 07:50 Resp 18 06/10/22 07:50 BP 155/84 06/10/22 07:50 Pulse Ox 97 06/10/22 07:50 O2 Del Method 06/10/22 04:00 O2 Flow Rate 96 06/08/22 19:59 06/09/22 06/10/22 06/10/22 22:59 06:59 14:59 Intake Total 118 / 478 200 / 200 Output Total 375 / 950 300 / 1250 Balance -257 / -472 -300 / -772 200 / 200 Physical Exam Narrative: Awake and alert Laying supine Talking with his over the phone No new focal deficit he Signs of cauda equina Abdomen soft Currently on room air S1, S2 Urinary Catheter Management: Nuñez: Cath Placed During This Visit: yes Reason for Continuing Indwelling Catheter: Acute Urinary Retention or Ob struction Urinary Catheter Date of Insertion: 05/29/22 Urinary Catheter Time of Insertion: 00:00 Data : 06/07/22 04:52 06/07/22 04:52 A&P Assessment and plan (1) S/P kyphoplasty: (2) Displaced fracture of proximal end of humerus: (3) Traumatic compression fracture of thoracic vertebra: (4) Traumatic compression fracture of T12 thoracic vertebra: (5) Compression fracture: (6) Osteonecrosis: (7) Humerus fracture: Plan Patient had received Zofran for nausea Patient is awaiting placement Continue opioid and bowel regimen His last bowel movement was yesterday, passing gas, no signs of obstruction I would not obtain KUB for now Patient remains full code Blood sugar under control on regular diet Awaiting placement DVT prophylaxis on board Voiding without any difficulty Doing well on current anxiolytics and antipsychotics Attestations Medical Necessity Statement*: Awaiting placement Time Spent in Patient Care: 10 Coding Level of Care Code Acute Foreign Student Adviser for Shreyasg Fwjus Diagnoses S/P kyphoplasty Z98.890 Displaced fracture of proximal end of humerus S42.209A Traumatic compression fracture of thoracic vertebra S22.000A Traumatic compression fracture of T12 thoracic vertebra S22.080A Compression fracture Osteonecrosis M87.9 Humerus fracture S42.309M
--- NOTE | 2022-06-10 11:53 | PC.NURSE ---
Notified Dr. Inman of patient needing axniety medication. Verbal order for Xanax BID PRN given and ordered.
[2022-06-10] MEDS: ALPRAZolam 0.5 mg Tablet PO (12:09)
[2022-06-10] MEDS: atorvastatin 40 mg Tablet PO (20:55)
[2022-06-10] MEDS: quetiapine 100 mg Tablet PO (20:55)
[2022-06-11] VITALS (10 sets, daily range): BP systolic 100–133; BP diastolic 64–84; PULSE 63–76; RESP 16–20; TEMP 36.3–36.8; O2SAT 91–97
[2022-06-11] MEDS: lisinopril 20 mg Tablet 40 MG PO (05:47)
[2022-06-11] MEDS: HYDROcodone-acetaminophen 5-325 mg Tablet PO ×4 (06:21→20:41)
[2022-06-11] MEDS: methocarbamol 500 mg Tablet PO ×2 (06:22→20:41)
--- NOTE | 2022-06-11 08:18 | PM.PN ---
Subjective Subjective: Patient is stating that he is feeling comfortable today He is able to void on his own No active emesis Nausea improved Pain is well controlled Pleasant and cooperative Vitals/I&O/Wt Last Vital Signs Temp 97.6 F 06/11/22 07:37 Pulse 74 06/11/22 07:37 Resp 17 06/11/22 07:37 BP 128/84 06/11/22 07:37 Pulse Ox 91 06/11/22 07:37 O2 Del Method 06/10/22 19:46 O2 Flow Rate 2 06/10/22 19:54 06/10/22 06/11/22 06/11/22 22:59 06:59 14:59 Intake Total 200 / 800 1000 / 1800 Output Total 100 / 625 600 / 1225 Balance 100 / 175 400 / 575 Physical Exam Narrative: No new complaints Laying supine Blood pressure at the bedside Awake and alert Currently on room air Abdomen soft Able to void No active complaints No active distress S1, S2 variable Right arm in immobilizer Urinary Catheter Management: Nuñez: Cath Placed During This Visit: yes Reason for Continuing Indwelling Catheter: Acute Urinary Retention or Obstruction Urinary Catheter Date of Insertion: 05/29/22 Urinary Catheter Time of Insertion: 00:00 Data : 06/07/22 04:52 06/07/22 04:52 A&P Assessment and plan (1) S/P kyphoplasty: (2) Displaced fracture of proximal end of humerus: (3) Traumatic compression fracture of thoracic vertebra: (4) Traumatic compression fracture of T12 thoracic vertebra: (5) Compression fracture: (6) Osteonecrosis: (7) Humerus fracture: (8) History of posttraumatic stress disorder (PTSD): (9) Atrial fibrillation, chronic: Plan Awaiting placement A. fib without RVR continue Eliquis and rate control medications PTSD major depressive disorder doing well on entire psychotic and anxiolytics Able to void on his own Bowel movement okay No active emesis Nausea improved Pain well controlled Full code Attestations Medical Necessity Statement*: Awaiting placement Time Spent in Patient Care: 10 Coding Level of Care Code Acute Plunger Shovel Operator for Chg Fwd Diagnoses S/P kyphoplasty Z98.890 Displaced fracture of proximal end of humerus S42.209A Traumatic compression fracture of thoracic vertebra S22.000A Traumatic compression fracture of T12 thoracic vertebra S22.080A Compression fracture Osteonecrosis M87.9 Humerus fracture S42.309A History of posttraumatic stress disorder (PTSD) Z86.59 Atrial fibrillation, chronic I48.20
[2022-06-11] MEDS: tamsulosin 0.4 mg Capsule PO (09:49)
[2022-06-11] MEDS: duloxetine 30 mg Capsule PO (09:49)
[2022-06-11] MEDS: pantoprazole DR 40 mg Tablet PO ×2 (09:50→18:15)
[2022-06-11] MEDS: metoprolol succinate ER (24 HR) 25 mg Tablet PO ×2 (09:52→18:15)
[2022-06-11] MEDS: FUROsemide 40 mg Tablet PO (09:52)
[2022-06-11] MEDS: apixaban 5 mg Tablet PO ×2 (10:02→18:15)
--- NOTE | 2022-06-11 10:37 | PC.CHAP ---
Pastoral Care Encounter/Spiritual Assessment Type of Contact [] Declined logistics support visit [] Patient/Family/Request visit [] Outpatient visit [] Follow-up visit [] Physician referral [] Code/Alert [x] Routine visit [] Staff referral [] Actively dying [] Patient sleeping [] Family support [] [] Out of room [] Palliative care [] [x] Receiving care in room [] Pre-surgical visit [] Trauma [] Long length of stay [] ICU visit [] Other: Relational/Emotional Strength [x] Patient feels connected with others/family/visitors/staff [] Distress [] Loneliness/isolation [] Abandonment Spirituality of Patient [x] Person of Sherrie [] Attends Taoist of their Sherrie [] Believes in Prayer [x] Reads Bible or Christianity materials [] There are Spiritual issues to be addressed Telemetry Rn Interventions [x] Prayer [x] Active listening [x] Non-anxious presence [x] Spiritual/emotional support [] Crisis/trauma care [x] Spiritual counseling [] Bereavement support [] Provided bereavement packet [] Provided Bible/devotional materials [] Provided toy/stuffed animal, coloring book to patient or family member [] Provided Communion [] Anointing/[place] [] Salvation [x] Completed spiritual assessment [] Other: Impact on Illness or Injury [] Angry [] Fearful [x] Anxious [] Often cries [] Exhaustion [] Unable to work [] Unable to attend congregation [] Unable to walk/stand [] Unable to read [] Unable to drive [] Unable to eat/drink [] Unable to sleep [] Unable to be with family [] Patient intubated [] Other: in pain Sholder in [place] will need back surgery at some point has agood attitude will go home at some point Summary Time spent with patient 5 min s
[2022-06-11] MEDS: ALPRAZolam 0.5 mg Tablet PO (10:57)
[2022-06-11] MEDS: quetiapine 100 mg Tablet PO (20:41)
[2022-06-11] MEDS: atorvastatin 40 mg Tablet PO (20:41)
[2022-06-12] VITALS (9 sets, daily range): BP systolic 121–144; BP diastolic 55–87; PULSE 65–89; RESP 16–19; TEMP 36.6–36.8; O2SAT 92–97
[2022-06-12] MEDS: lisinopril 20 mg Tablet 40 MG PO (05:25)
--- NOTE | 2022-06-12 07:06 | PC.NURSE ---
[facility]
[2022-06-12] MEDS: ALPRAZolam 0.5 mg Tablet PO (08:53)
[2022-06-12] MEDS: duloxetine 30 mg Capsule PO (08:53)
[2022-06-12] MEDS: metoprolol succinate ER (24 HR) 25 mg Tablet PO (08:53)
[2022-06-12] MEDS: apixaban 5 mg Tablet PO ×2 (08:53→18:40)
[2022-06-12] MEDS: pantoprazole DR 40 mg Tablet PO ×2 (08:53→18:40)
[2022-06-12] MEDS: tamsulosin 0.4 mg Capsule PO (08:53)
[2022-06-12] MEDS: docusate sodium 100 mg Capsule PO (08:53)
[2022-06-12] MEDS: FUROsemide 40 mg Tablet PO (08:53)
[2022-06-12] MEDS: HYDROcodone-acetaminophen 5-325 mg Tablet PO ×2 (08:53→18:57)
[2022-06-12] MEDS: nystatin powder 15 gm Btl 1 APPLIC TOPICAL ×2 (08:54→18:40)
--- NOTE | 2022-06-12 08:54 | PM.PN ---
Subjective Subjective: Patient is stating that he is more bloated and and remained seated after finishing his breakfast He mostly lays supine that is making his pain worse and causing nausea after his meals He did not endorse improvement in his symptoms yesterday Today he is stating his anxiety is very bad I did asked the nurse to give him his morning medications now Patient is having bowel movement No active emesis Pain well managed for now Patient is voiding urine on his own Patient had 8 runs of nonsustained V. tach patient never had any chest pain shortness of breath, hemodynamically stable I have requested BMP and mag level Vitals/I&O/Wt Last Vital Signs Temp 98.2 F 06/12/22 07:53 Pulse 74 06/12/22 08:00 Resp 18 06/12/22 08:00 BP 143/81 06/12/22 07:53 Pulse Ox 94 06/12/22 08:00 O2 Del Method 06/12/22 08:00 O2 Flow Rate 2 06/11/22 19:45 06/11/22 06/12/22 06/12/22 22:59 06:59 14:59 Intake Total 0 / 360 Output Total 325 / 325 Balance 0 / 360 -325 / 35 Physical Exam Narrative: Awake and alert Currently lying supine Nonfocal neuro exam Complaining of anxiety Looks pretty comfortable laying supine on a bedpan Nurse at the bedside Does not look fluid overloaded Abdomen soft No audible stridor or wheezing Variable S1-S2 Urinary Catheter Management: Nuñez: Cath Placed During This Visit: yes Reason for Continuing Indwelling Catheter: Acute Urinary Retention or Obstruction Urinary Catheter Date of Insertion: 05/29/22 Urinary Catheter Time of Insertion: 00:00 Data : 06/07/22 04:52 06/07/22 04:52 A&P Assessment and plan (1) S/P kyphoplasty: (2) Displaced fracture of proximal end of humerus: (3) Traumatic compression fracture of thoracic vertebra: (4) Traumatic compression fracture of T12 thoracic vertebra: (5) Compression fracture: (6) Humerus fracture: (7) Osteonecrosis: (8) History of posttraumatic stress disorder (PTSD): (9) Atrial fibrillation, chronic: (10) Major depressive disorder, recurrent severe without psychotic features: (11) Post-traumatic stress disorder, chronic: Plan This patient presented for intractable pain, he was also making suicidal statements because of his pain, 96-hour hold was discontinued when he was cleared by a neuropsychiatrist, he complains of pain and anxiety, he has been seen by psychiatrist multiple times we have added antipsychotics anxiolytics and muscle relaxers which seem to improve his symptoms The main source of pain was back pain, he had multiple compression fractures, osteonecrosis Dr. Mullins was consulted who recommended kyphoplasty T11, T12, no postop complications [facility] we are waiting for level 2 authorization for last 1 week This morning nonsustained V. tach noted 8 runs, requested magnesium and BMP level hemodynamically stable patient did not complain of any chest pain or shortness of breath A. fib without RVR continue Eliquis and AV angelica blocking agent Back pain, right humeral fracture pain under control, he is having regular bowel movement every day DVT prophylaxis covered with Eliquis Outpatient follow-up with Dr. Menard for kyphoplasty and Dr. Parker for right humeral fracture His right femur fracture does not need intervention as per orthopedics, it is showing signs of healing, he will be discharged on shoulder immobilizer Full code Regular diet Awaiting placement Nuñez catheter has been removed patient is voiding on his own Attestations Medical Necessity Statement*: Awaiting placement Time Spent in Patient Care: 20 Coding Level of Care Code Acute Washroom Attendant for [facility] Fwd Diagnoses S/P kyphoplasty Z98.890 Displaced fracture of proximal end of humerus S42.209A Traumatic compression fracture of thoracic vertebra S22.000A Traumatic compression fracture of T12 thoracic vertebra S22.080A Compression fracture Humerus fracture S42.309A Osteonecrosis M87.9 History of posttraumatic stress disorder (PTSD) Z86.59 Atrial fibrillation, chronic I48.20 Major depressive disorder, recurrent severe without psychotic features F33.2 Post-traumatic stress disorder, chronic F43.12
[2022-06-12 09:27] LABS: Blood Urea Nitrogen 13 mg/dL (8-23); Calcium 9.3 mg/dL (8.5-10.5); Carbon Dioxide 22 mmol/L (22-29); Chloride 99 mmol/L (98-107); Glomerular Filtration Rate 98.6 mL/min (90-130); Glucose 120 mg/dL (65-115); Osmolality Calculated 275 mOsm/kg (285-295); Sodium 132 mmol/L (136-145)
[2022-06-12 09:49] LABS: Magnesium 1.8 mg/dL (1.7-2.3); NT Pro B Type Natriuretic Pept 46 pg/mL (0-125)
[2022-06-12] MEDS: metoprolol tartrate 25 mg Tablet PO ×2 (10:19→20:06)
[2022-06-12] MEDS: ondansetron 4 MG Tablet PO (11:37)
[2022-06-12] MEDS: methocarbamol 500 mg Tablet PO (12:06)
[2022-06-12] MEDS: potassium chloride ER 20 mEq Tablet 40 MEQ PO (14:21)
[2022-06-12] MEDS: lidocaine 1% 5 ML in potassium chloride premix 100 ML 50 ML IV (14:51)
[2022-06-12] MEDS: quetiapine 100 mg Tablet PO (20:06)
[2022-06-12] MEDS: atorvastatin 40 mg Tablet PO (20:06)
[2022-06-13] VITALS (11 sets, daily range): BP systolic 108–158; BP diastolic 65–87; PULSE 63–82; RESP 12–19; TEMP 36.3–36.8; O2SAT 93–97
[2022-06-13] MEDS: HYDROcodone-acetaminophen 5-325 mg Tablet PO ×2 (00:33→05:02)
[2022-06-13] MEDS: lisinopril 20 mg Tablet 40 MG PO (05:04)
[2022-06-13] MEDS: duloxetine 30 mg Capsule PO (09:33)
[2022-06-13] MEDS: pantoprazole DR 40 mg Tablet PO ×2 (09:33→17:30)
[2022-06-13] MEDS: tamsulosin 0.4 mg Capsule PO (09:33)
[2022-06-13] MEDS: apixaban 5 mg Tablet PO ×2 (09:34→17:29)
[2022-06-13] MEDS: metoprolol tartrate 25 mg Tablet PO ×2 (09:36→21:48)
[2022-06-13] MEDS: nystatin powder 15 gm Btl 1 APPLIC TOPICAL ×2 (09:36→17:30)
[2022-06-13] MEDS: acetaminophen 325 mg Tablet 650 MG PO (13:06)
[2022-06-13] MEDS: ALPRAZolam 0.5 mg Tablet PO (13:07)
--- NOTE | 2022-06-13 15:34 | PM.PN ---
Subjective Subjective: Patient was seen and examined this morning no acute event overnight. Medications: Medication Review Details: Generic Name Dose Route Start Last Admin Trade Name Freq PRN Reason Stop Dose Admin Acetaminophen 650 mg 05/29/22 23:06 06/13/22 13:06 Acetaminophen 32 5 Mg Tablet PO 650 mg Q6H PRN Administration Mild/Mod Pain Or Temp >/= 101 Acetaminophen 650 mg 06/03/22 14:40 06/10/22 00:24 Acetaminophen 32 5 Mg Tablet PO 650 mg Q4H PRN Administration Mild Pain or feve r >101.5 Alprazolam 0.5 mg 06/10/22 11:52 06/13/22 13:07 Alprazolam 0.5 M g Tablet PO 0.5 mg BID PRN Administration ANXIETY Apixaban 5 mg 05/30/22 09:00 06/13/22 09:34 Apixaban 5 Mg Ta blet PO 5 mg BID SAVANAH Administration Atorvastatin Calci um 40 mg 05/30/22 21:00 06/12/22 20:06 Atorvastatin 40 Mg Tablet PO 40 mg BEDTIME SAVANAH Administration Docusate Sodium 100 mg 06/03/22 18:00 06/13/22 09:34 Docusate Sodium 100 Mg Capsule PO Not Given BID SAVANAH Duloxetine HCl 30 mg 06/08/22 09:00 06/13/22 09:33 Duloxetine 30 Mg Capsule PO 30 mg DAILY SAVANAH Administration Furosemide 40 mg 06/03/22 09:00 06/12/22 08:53 Furosemide 40 Mg Tablet PO 40 mg DAILY SAVANAH Administration Lisinopril 40 mg 05/30/22 06:00 06/13/22 05:04 Lisinopril 20 Mg Tablet PO 40 mg QAM SAVANAH Administration Methocarbamol 500 mg 05/29/22 23:13 06/12/22 12:06 Methocarbamol 50 0 Mg Tablet PO 500 mg TID PRN Administration muscle spasm, myrtle n Metoprolol Tartrat e 25 mg 06/12/22 09:00 06/13/22 09:36 Metoprolol Tartr ate 25 Mg Tablet PO 25 mg BID@0900,2100 SAVANAH Administration Nystatin 1 applic 06/01/22 09:30 06/13/22 09:36 Nystatin Powder 15 Gm Btl TOPICAL 1 applic BID SAVANAH Administration Ondansetron HCl 4 mg 06/10/22 08:53 06/12/22 11:37 Ondansetron 4 Mg Tablet PO 4 mg Q8H PRN Administration NAUSEA AND VOMITI NG Pantoprazole Sodiu m 40 mg 05/30/22 18:00 06/13/22 09:[address] 40 Mg Tablet PO 40 mg BID SAVANAH Administration Quetiapine Fumarat e 100 mg 06/07/22 21:00 06/12/22 20:06 Quetiapine 100 M g Tablet PO 100 mg BEDTIME SAVANAH Administration Tamsulosin HCl 0.4 mg 06/03/22 09:00 06/13/22 09:33 Tamsulosin 0.4 M g Capsule PO 0.4 mg DAILY SAVANAH Administration Vitals/I&O/Wt Last Vital Signs Temp 98.1 F 06/13/22 11:11 Pulse 74 06/13/22 11:11 Resp 16 06/13/22 11:11 BP 117/68 06/13/22 11:11 Pulse Ox 96 06/13/22 11:11 O2 Del Method 06/13/22 11:11 O2 Flow Rate 2 06/11/22 19:45 06/13/22 06/13/22 06/13/22 06:59 14:59 22:59 Intake Total 960 / 960 Output Total 300 / 700 Balance -300 / 917 960 / 960 Physical Exam Const: COMMON NORMALS: patient oriented x3 Resp: COMMON NORMALS: clear to auscultation bilaterally AUSCULTATION: clear to auscultation bilaterally Cardio: COMMON NORMALS: regular rate, regular rhythm, S1 normal heart sound present, S2 normal heart sound present, No gallops present (Cardio), No murmurs present (Cardio), No rub (Cardio) and Peripheral pulses 2+ throughout RATE: regular rate RHYTHM: regular rhythm HEART SOUNDS: S1 normal heart sound present and S2 normal heart sound present PERIPHERAL PULSES: Peripheral pulses 2+ throughout GI: COMMON NORMALS: Normal to inspection, nondistended, normoactive bowel sounds present, Soft to palpation, non-tender, No hepatosplenomegaly present and no masses AUSCULTATION: Yes normoactive bowel sounds PALPATION: Yes Soft to palpation and Yes No hepatosplenomegaly present RECTAL EXAM: Yes deferred Extremity: COMMON NORMALS: no clubbing, cyanosis or edema and no pedal edema Neuro: COMMON NORMALS: patient oriented x3 Urinary Catheter Management: Nuñez: Cath Placed During This Visit: yes Reason for Continuing Indwelling Catheter: Acute Urinary Retention or Obstruction Urinary Catheter Date of Insertion: 05/29/22 Urinary Catheter Time of Insertion: 00:00 Data : 06/07/22 04:52 06/12/22 08:49 A&P Assessment and plan (1) S/P kyphoplasty: (2) Displaced fracture of proximal end of humerus: (3) Traumatic compression fracture of thoracic vertebra: (4) Traumatic compression fracture of T12 thoracic vertebra: (5) Compression fracture: (6) Humerus fracture: (7) Osteonecrosis: (8) History of posttraumatic stress disorder (PTSD): (9) Atrial fibrillation, chronic: (10) Major depressive disorder, recurrent severe without psychotic features: (11) Post-traumatic stress disorder, chronic: Plan This patient presented for intractable pain, he was also making suicidal statements because of his pain, 96-hour hold was discontinued when he was cleared by a neuropsychiatrist, he complains of pain and anxiety, he has been seen by psychiatrist multiple times we have added antipsychotics anxiolytics and muscle relaxers which seem to improve his symptoms The main source of pain was back pain, he had multiple compression fractures, osteonecrosis Dr. Mullins was consulted who recommended kyphoplasty T11, T12, no postop complications [facility] we are waiting for level 2 authorization for last 1 week This morning nonsustained V. tach noted 8 runs, requested magnesium and BMP level hemodynamically stable patient did not complain of any chest pain or shortness of breath A. fib without RVR continue Eliquis and AV angelica blocking agent Back pain, right humeral fracture pain under control, he is having regular bowel movement every day DVT prophylaxis covered with Eliquis Outpatient follow-up with Dr. Menard for kyphoplasty and Dr. Parker for right humeral fracture His right femur fracture does not need intervention as per orthopedics, it is showing signs of healing, he will be discharged on shoulder immobilizer Full code Regular diet Awaiting placement Nuñez catheter has been removed patient is voiding on his own Attestations Medical Necessity Statement*: Awaiting placement Coding Level of Care Code Acute Plater Supervisor for [facility] Fwd Diagnoses S/P kyphoplasty Z98.890 Displaced fracture of proximal end of humerus S42.209A Traumatic compression fracture of thoracic vertebra S22.000A Traumatic compression fracture of T12 thoracic vertebra S22.080A Compression fracture Humerus fracture S42.309A Osteonecrosis M87.9 History of posttraumatic stress disorder (PTSD) Z86.59 Atrial fibrillation, chronic I48.20 Major depressive disorder, recurrent severe without psychotic features F33.2 Post-traumatic stress disorder, chronic F43.12
[2022-06-13] MEDS: HYDROcodone-acetaminophen 5-325 mg Tablet 1 TAB PO ×2 (17:30→21:47)
--- NOTE | 2022-06-13 18:43 | PC.NURSE ---
dr kemp to leave iv out after pt dislodged
[2022-06-13] MEDS: quetiapine 100 mg Tablet PO (21:47)
[2022-06-13] MEDS: atorvastatin 40 mg Tablet PO (21:48)
[2022-06-14] VITALS (10 sets, daily range): BP systolic 117–144; BP diastolic 71–88; PULSE 63–76; RESP 16–18; TEMP 36.4–36.7; O2SAT 94–98
[2022-06-14] MEDS: HYDROcodone-acetaminophen 5-325 mg Tablet 1 TAB PO ×4 (02:54→20:00)
[2022-06-14] MEDS: ALPRAZolam 0.5 mg Tablet PO ×2 (02:54→13:45)
[2022-06-14] MEDS: lisinopril 20 mg Tablet 40 MG PO (05:34)
[2022-06-14] MEDS: pantoprazole DR 40 mg Tablet PO ×2 (08:41→17:29)
[2022-06-14] MEDS: metoprolol tartrate 25 mg Tablet PO ×2 (08:41→20:00)
[2022-06-14] MEDS: duloxetine 30 mg Capsule PO (08:41)
[2022-06-14] MEDS: tamsulosin 0.4 mg Capsule PO (08:41)
[2022-06-14] MEDS: apixaban 5 mg Tablet PO ×2 (08:42→17:29)
--- NOTE | 2022-06-14 12:37 | PC.PT ---
Patient refused therapy reporting due to pain 05/18
--- NOTE | 2022-06-14 16:35 | PM.PN ---
Subjective Subjective: Patient was seen and examined this morning overall he is doing better. Medications: Medication Review Details: Generic Name Dose Route Start Last Admin Trade Name Freq PRN Reason Stop Dose Admin Acetaminophen 650 mg 05/29/22 23:06 06/13/22 13:06 Acetaminophen 32 5 Mg Tablet PO 650 mg Q6H PRN Administration Mild/Mod Pain Or Temp >/= 101 Acetaminophen 650 mg 06/03/22 14:40 06/10/22 00:24 Acetaminophen 32 5 Mg Tablet PO 650 mg Q4H PRN Administration Mild Pain or feve r >101.5 Hydrocodone Bitart /Acetaminophen 1 tab 06/13/22 17:20 06/14/22 13:45 Hydrocodone-Acet aminophen 5-325 Mg Tablet PO 1 tab Q4H PRN Administration MODERATE PAIN Alprazolam 0.5 mg 06/13/22 17:21 06/14/22 13:45 Alprazolam 0.5 M g Tablet PO 0.5 mg Q12H PRN Administration ANXIETY Apixaban 5 mg 05/30/22 09:00 06/14/22 08:42 Apixaban 5 Mg Ta blet PO 5 mg BID SAVANAH Administration Atorvastatin Calci um 40 mg 05/30/22 21:00 06/13/22 21:48 Atorvastatin 40 Mg Tablet PO 40 mg BEDTIME SAVANAH Administration Docusate Sodium 100 mg 06/03/22 18:00 06/14/22 08:43 Docusate Sodium 100 Mg Capsule PO Not Given BID SAVANAH Duloxetine HCl 30 mg 06/08/22 09:00 06/14/22 08:41 Duloxetine 30 Mg Capsule PO 30 mg DAILY SAVANAH Administration Furosemide 40 mg 06/03/22 09:00 06/12/22 08:53 Furosemide 40 Mg Tablet PO 40 mg DAILY SAVANAH Administration Lisinopril 40 mg 05/30/22 06:00 06/14/22 05:34 Lisinopril 20 Mg Tablet PO 40 mg QAM SAVANAH Administration Methocarbamol 500 mg 05/29/22 23:13 06/12/22 12:06 Methocarbamol 50 0 Mg Tablet PO 500 mg TID PRN Administration muscle spasm, myrtle n Metoprolol Tartrat e 25 mg 06/12/22 09:00 06/14/22 08:41 Metoprolol Tartr ate 25 Mg Tablet PO 25 mg BID@0900,2100 SAVANAH Administration Nystatin 1 applic 06/01/22 09:30 06/14/22 08:43 Nystatin Powder 15 Gm Btl TOPICAL Not Given BID [facility] Ondansetron HCl 4 mg 06/10/22 08:53 06/12/22 11:37 Ondansetron 4 Mg Tablet PO 4 mg Q8H PRN Administration NAUSEA AND VOMITI NG Pantoprazole Sodiu m 40 mg 05/30/22 18:00 06/14/22 08:[address] 40 Mg Tablet PO 40 mg BID [facility] Administration Quetiapine Fumarat e 100 mg 06/07/22 21:00 06/13/22 21:47 Quetiapine 100 M g Tablet PO 100 mg BEDTIME [facility] Administration Tamsulosin HCl 0.4 mg 06/03/22 09:00 06/14/22 08:41 Tamsulosin 0.4 M g Capsule PO 0.4 mg DAILY SAVANAH Administration Vitals/I&O/Wt Last Vital Signs Temp 98.1 F 06/14/22 15:25 Pulse 72 06/14/22 15:25 Resp 18 06/14/22 15:25 BP 122/71 06/14/22 15:25 Pulse Ox 94 06/14/22 15:25 O2 Del Method 06/14/22 15:25 O2 Flow Rate 2 06/11/22 19:45 06/14/22 06/14/22 06/14/22 06:59 14:59 22:59 Intake Total 720 / 720 Output Total 400 / 400 400 / 800 Balance 320 / 320 -400 / -80 Physical Exam Const: COMMON NORMALS: patient oriented x3 Resp: COMMON NORMALS: clear to auscultation bilaterally AUSCULTATION: clear to auscultation bilaterally Cardio: COMMON NORMALS: regular rate, regular rhythm, S1 normal heart sound present, S2 normal heart sound present, No gallops present (Cardio), No murmurs present (Cardio), No rub (Cardio) and Peripheral pulses 2+ throughout RATE: regular rate RHYTHM: regular rhythm HEART SOUNDS: S1 normal heart sound present and S2 normal heart sound present PERIPHERAL PULSES: Peripheral pulses 2+ throughout GI: COMMON NORMALS: Normal to inspection, nondistended, normoactive bowel sounds present, Soft to palpation, non-tender, No hepatosplenomegaly present and no masses AUSCULTATION: Yes normoactive bowel sounds PALPATION: Yes Soft to palpation and Yes No hepatosplenomegaly present RECTAL EXAM: Yes deferred Extremity: COMMON NORMALS: no clubbing, cyanosis or edema and no pedal edema Neuro: COMMON NORMALS: patient oriented x3 Urinary Catheter Management: Nuñez: Cath Placed During This Visit: yes Reason for Continuing Indwelling Catheter: Acute Urinary Retention or Obstruction Urinary Catheter Date of Insertion: 05/29/22 Urinary Catheter Time of Insertion: 00:00 Data : 06/07/22 04:52 06/12/22 08:49 A&P Assessment and plan (1) S/P kyphoplasty: (2) Displaced fracture of proximal end of humerus: (3) Traumatic compression fracture of thoracic vertebra: (4) Traumatic compression fracture of T12 thoracic vertebra: (5) Compression fracture: (6) Humerus fracture: (7) Osteonecrosis: (8) History of posttraumatic stress disorder (PTSD): (9) Atrial fibrillation, chronic: (10) Major depressive disorder, recurrent severe without psychotic features: (11) Post-traumatic stress disorder, chronic: Plan This patient presented for intractable pain, he was also making suicidal statements because of his pain, 96-hour hold was discontinued when he was cleared by a neuropsychiatrist, he complains of pain and anxiety, he has been seen by psychiatrist multiple times we have added antipsychotics anxiolytics and muscle relaxers which seem to improve his symptoms The main source of pain was back pain, he had multiple compression fractures, osteonecrosis Dr. Mullins was consulted who recommended kyphoplasty T11, T12, no postop complications Patient has been accepted at a [facility] for [facility]hab we are waiting for level 2 authorization for last 1 week This morning nonsustained V. tach noted 8 runs, requested magnesium and BMP level hemodynamically stable patient did not complain of any chest pain or shortness of breath A. fib without RVR continue Eliquis and AV angelica blocking agent Back pain, right humeral fracture pain under control, he is having regular bowel movement every day DVT prophylaxis covered with Eliquis Outpatient follow-up with Dr. Menard for kyphoplasty and Dr. Parker for right humeral fracture His right femur fracture does not need intervention as per orthopedics, it is showing signs of healing, he will be discharged on shoulder immobilizer Full code Regular diet Awaiting placement Nuñez catheter has been removed patient is voiding on his own Attestations Medical Necessity Statement*: Awaiting placement. Coding Level of Care Code Acute Foot Cutter for [facility] Fwd Diagnoses S/P kyphoplasty Z98.890 Displaced fracture of proximal end of humerus S42.209A Traumatic compression fracture of thoracic vertebra S22.000A Traumatic compression fracture of T12 thoracic vertebra S22.080A Compression fracture Humerus fracture S42.309A Osteonecrosis M87.9 History of posttraumatic stress disorder (PTSD) Z86.59 Atrial fibrillation, chronic I48.20 Major depressive disorder, recurrent severe without psychotic features F33.2 Post-traumatic stress disorder, chronic F43.12
[2022-06-14] MEDS: atorvastatin 40 mg Tablet PO (20:00)
[2022-06-14] MEDS: quetiapine 100 mg Tablet PO (20:00)
--- NOTE | 2022-06-14 23:34 | PC.NURSE ---
Messaged regarding patient having long runs of vtach, asymptomatic but has not had labs since 06/12. Patients vitals were stable and the patient denied any chest pain or palpitations. Asking if wanted labs drawn, awaiting response.
[2022-06-15] VITALS (9 sets, daily range): BP systolic 125–153; BP diastolic 72–88; PULSE 63–85; RESP 12–18; TEMP 36.4–36.7; O2SAT 94–99
--- NOTE | 2022-06-15 02:53 | PC.NURSE ---
ordered labs, CMP and Mag to be drawn due to patients vtach.
[2022-06-15] MEDS: lisinopril 20 mg Tablet 40 MG PO (05:04)
[2022-06-15] MEDS: HYDROcodone-acetaminophen 5-325 mg Tablet 1 TAB PO ×4 (05:04→17:30)
[2022-06-15 07:18] LABS: Alanine Aminotransferase 27 U/L (0-41); Albumin Level 2.8 g/dL (3.5-5.2); Alkaline Phosphatase 185 U/L (40-130); Blood Urea Nitrogen 10 mg/dL (8-23); Calcium 8.9 mg/dL (8.5-10.5); Carbon Dioxide 24 mmol/L (22-29); Chloride 102 mmol/L (98-107); Globulin 2.7 g/dL (1.3-4.6); Glucose 88 mg/dL (65-115); Magnesium 1.8 mg/dL (1.7-2.3); Osmolality Calculated 278 mOsm/kg (285-295); Sodium 135 mmol/L (136-145); Total Bilirubin 0.2 mg/dL (0.15-1.2); Total Protein 5.5 g/dL (6.6-8.7)
[2022-06-15 07:23] LABS: Anion Gap 13.1 (5-19)
[2022-06-15 07:24] LABS: Aspartate Amino Transferase 35 U/L (0-40); Potassium 4.1 mmol/L (3.5-5.1)
[2022-06-15] MEDS: apixaban 5 mg Tablet PO ×2 (08:58→17:30)
[2022-06-15] MEDS: pantoprazole DR 40 mg Tablet PO ×2 (08:58→17:30)
[2022-06-15] MEDS: duloxetine 30 mg Capsule PO (08:58)
[2022-06-15] MEDS: metoprolol tartrate 25 mg Tablet PO ×2 (08:58→20:57)
[2022-06-15] MEDS: tamsulosin 0.4 mg Capsule PO (08:59)
[2022-06-15] MEDS: nystatin powder 15 gm Btl 1 APPLIC TOPICAL (11:05)
[2022-06-15 11:06] LABS: Blood Urea Nitrogen 9 mg/dL (8-23); Calcium 9.1 mg/dL (8.5-10.5); Carbon Dioxide 21 mmol/L (22-29); Chloride 107 mmol/L (98-107); Glomerular Filtration Rate 98.6 mL/min (90-130); Glucose 114 mg/dL (65-115); Magnesium 1.8 mg/dL (1.7-2.3); Osmolality Calculated 284 mOsm/kg (285-295); Sodium 137 mmol/L (136-145)
[2022-06-15 11:09] LABS: Anion Gap 13.3 (5-19); Potassium 4.3 mmol/L (3.5-5.1)
[2022-06-15] MEDS: ALPRAZolam 0.5 mg Tablet PO ×2 (13:07→20:57)
--- NOTE | 2022-06-15 14:36 | P.PN_ITS ---
Subjective Subjective: Patient was seen and examined this morning, currently in A. fib, had run of nonsustained V. tach. complaining of 2-3 loose bowel movements. Electrolytes have been reviewed. Medications: Medication Review Details: Generic Name Dose Route Start Last Admin Trade Name Freq PRN Reason Stop Dose Admin Acetaminophen 650 mg 05/29/22 23:06 06/13/22 13:06 Acetaminophen 32 5 Mg Tablet PO 650 mg Q6H PRN Administration Mild/Mod Pain Or Temp >/= 101 Acetaminophen 650 mg 06/03/22 14:40 06/10/22 00:24 Acetaminophen 32 5 Mg Tablet PO 650 mg Q4H PRN Administration Mild Pain or feve r >101.5 Hydrocodone Bitart /Acetaminophen 1 tab 06/13/22 17:20 06/15/22 13:06 Hydrocodone-Acet aminophen 5-325 Mg Tablet PO 1 tab Q4H PRN Administration MODERATE PAIN Alprazolam 0.5 mg 06/13/22 17:21 06/15/22 13:07 Alprazolam 0.5 M g Tablet PO 0.5 mg Q12H PRN Administration ANXIETY Apixaban 5 mg 05/30/22 09:00 06/15/22 08:58 Apixaban 5 Mg Ta blet PO 5 mg BID SAVANAH Administration Atorvastatin Calci um 40 mg 05/30/22 21:00 06/14/22 20:00 Atorvastatin 40 Mg Tablet PO 40 mg BEDTIME SAVANAH Administration Duloxetine HCl 30 mg 06/08/22 09:00 06/15/22 08:58 Duloxetine 30 Mg Capsule PO 30 mg DAILY SAVANAH Administration Furosemide 40 mg 06/03/22 09:00 06/12/22 08:53 Furosemide 40 Mg Tablet PO 40 mg DAILY SAVANAH Administration Lisinopril 40 mg 05/30/22 06:00 06/15/22 05:04 Lisinopril 20 Mg Tablet PO 40 mg QAM SAVANAH Administration Methocarbamol 500 mg 05/29/22 23:13 06/12/22 12:06 Methocarbamol 50 0 Mg Tablet PO 500 mg TID PRN Administration muscle spasm, myrtle n Metoprolol Tartrat e 25 mg 06/12/22 09:00 06/15/22 08:58 Metoprolol Tartr ate 25 Mg Tablet PO 25 mg BID@0900,2100 SAVANAH Administration Nystatin 1 applic 06/01/22 09:30 06/15/22 11:05 Nystatin Powder 15 Gm Btl TOPICAL 1 applic BID SAVANAH Administration Ondansetron HCl 4 mg 06/10/22 08:53 06/12/22 11:37 Ondansetron 4 Mg Tablet PO 4 mg Q8H PRN Administration NAUSEA AND VOMITI NG Pantoprazole Sodiu m 40 mg 05/30/22 18:00 06/15/22 08:[address] 40 Mg Tablet PO 40 mg BID SAVANAH Administration Quetiapine Fumarat e 100 mg 06/07/22 21:00 06/14/22 20:00 Quetiapine 100 M g Tablet PO 100 mg BEDTIME SAVANAH Administration Tamsulosin HCl 0.4 mg 06/03/22 09:00 06/15/22 08:59 Tamsulosin 0.4 M g Capsule PO 0.4 mg DAILY SAVANAH Administration Vitals/I&O/Wt Last Vital Signs Temp 97.8 F 06/15/22 12:00 Pulse 78 06/15/22 14:00 Resp 16 06/15/22 12:00 BP 147/85 06/15/22 12:00 Pulse Ox 98 06/15/22 12:00 O2 Del Method 06/15/22 08:00 O2 Flow Rate 2 06/11/22 19:45 06/14/22 06/15/22 06/15/22 22:59 06:59 14:59 Intake Total 640 / 1360 750 / 2110 840 / 840 Output Total 1050 / 1450 225 / 1675 300 / 300 Balance -410 / -90 525 / 435 540 / 540 Physical Exam Const: COMMON NORMALS: patient oriented x3 Resp: COMMON NORMALS: clear to auscultation bilaterally AUSCULTATION: clear to auscultation bilaterally Cardio: COMMON NORMALS: regular rate, regular rhythm, S1 normal heart sound present, S2 normal heart sound present, No gallops present (Cardio), No murmurs present (Cardio), No rub (Cardio) and Peripheral pulses 2+ throughout RATE: regular rate RHYTHM: regular rhythm HEART SOUNDS: S1 normal heart sound present and S2 normal heart sound present PERIPHERAL PULSES: Peripheral pulses 2+ throughout GI: COMMON NORMALS: Normal to inspection, nondistended, normoactive bowel sounds present, Soft to palpation, non-tender, No hepatosplenomegaly present and no masses AUSCULTATION: Yes normoactive bowel sounds PALPATION: Yes Soft to palpation and Yes No hepatosplenomegaly present RECTAL EXAM: Yes deferred Extremity: COMMON NORMALS: no clubbing, cyanosis or edema and no pedal edema Neuro: COMMON NORMALS: patient oriented x3 Urinary Catheter Management: Nuñez: Cath Placed During This Visit: yes Reason for Continuing Indwelling Catheter: Acute Urinary Retention or Obstruction Urinary Catheter Date of Insertion: 05/29/22 Urinary Catheter Time of Insertion: 00:00 Data : 06/07/22 04:52 06/15/22 10:23 A&P Assessment and plan (1) S/P kyphoplasty: (2) Displaced fracture of proximal end of humerus: (3) Traumatic compression fracture of thoracic vertebra: (4) Traumatic compression fracture of T12 thoracic vertebra: (5) Compression fracture: (6) Humerus fracture: (7) Osteonecrosis: (8) History of posttraumatic stress disorder (PTSD): (9) Atrial fibrillation, chronic: (10) Major depressive disorder, recurrent severe without psychotic features: (11) Post-traumatic stress disorder, chronic: Plan This patient presented for intractable pain, he was also making suicidal statements because of his pain, 96-hour hold was discontinued when he was cleared by a neuropsychiatrist, he complains of pain and anxiety, he has been seen by psychiatrist multiple times we have added antipsychotics anxiolytics and muscle relaxers which seem to improve his symptoms The main source of pain was back pain, he had multiple compression fractures, osteonecrosis Dr. Mullins was consulted who recommended kyphoplasty T11, T12, no postop complications Patient has been accepted at a [facility] for rehab we are waiting for level 2 authorization for last 1 week This morning nonsustained V. tach noted 8 runs, requested magnesium and BMP level hemodynamically stable patient did not complain of any chest pain or shortness of breath A. fib without RVR continue Eliquis and AV angelica blocking agent Back pain, right humeral fracture pain under control, he is having regular bowel movement every day DVT prophylaxis covered with Eliquis Outpatient follow-up with Dr. Menard for kyphoplasty and Dr. Parker for right humeral fracture His right femur fracture does not need intervention as per orthopedics, it is showing signs of healing, he will be discharged on shoulder immobilizer Full code Regular diet Awaiting placement Nuñez catheter has been removed patient is voiding on his own Attestations Medical Necessity Statement*: Awaiting placement Coding Level of Care Code Acute Packer And Carry Out for Chg Fwd Diagnoses S/P kyphoplasty Z98.890 Displaced fracture of proximal end of humerus S42.209A Traumatic compression fracture of thoracic vertebra S22.000A Traumatic compression fracture of T12 thoracic vertebra S22.080A Compression fracture Humerus fracture S42.309A Osteonecrosis M87.9 History of posttraumatic stress disorder (PTSD) Z86.59 Atrial fibrillation, chronic I48.20 Major depressive disorder, recurrent severe without psychotic features F33.2 Post-traumatic stress disorder, chronic F43.12
--- NOTE | 2022-06-15 14:50 | PC.OT ---
OT TREATMENT ATTEMPTED TWICE TODAY. 1ST ATTEMPT IN A.M.-PATIENT REPORTS NOT FEELING (NAUSEA); STATES I CAN RETURN IN THE AFTERNOON. 2ND ATTEMPT IN P.M.-PATIENT IS SLEEPING SOUNDLY AND DOES NOT AWAKEN. WILL ATTEMPT AGAIN TOMORROW.
[2022-06-15] MEDS: loperamide 2 mg Capsule 4 MG PO (17:38)
[2022-06-15] MEDS: atorvastatin 40 mg Tablet PO (20:57)
[2022-06-15] MEDS: quetiapine 100 mg Tablet PO (20:57)
[2022-06-16] VITALS (9 sets, daily range): BP systolic 111–157; BP diastolic 67–89; PULSE 65–75; RESP 13–17; TEMP 36.4–36.7; O2SAT 93–98
[2022-06-16] MEDS: HYDROcodone-acetaminophen 5-325 mg Tablet 1 TAB PO ×4 (02:35→18:01)
[2022-06-16] MEDS: lisinopril 20 mg Tablet 40 MG PO (05:46)
[2022-06-16] MEDS: pantoprazole DR 40 mg Tablet PO ×2 (08:51→18:00)
[2022-06-16] MEDS: metoprolol tartrate 25 mg Tablet PO ×2 (08:51→20:23)
[2022-06-16] MEDS: apixaban 5 mg Tablet PO ×2 (08:51→18:00)
[2022-06-16] MEDS: duloxetine 30 mg Capsule PO (08:51)
[2022-06-16] MEDS: tamsulosin 0.4 mg Capsule PO (08:51)
[2022-06-16] MEDS: ALPRAZolam 0.5 mg Tablet PO ×2 (08:51→18:03)
[2022-06-16 09:46] LABS: Basophils % 0.8 %; Eosinophils # 0.2 10^3/uL (0.0-0.8); Eosinophils % 3.8 %; Hematocrit 35.4 % (42.0-52.0); Hemoglobin 11.3 g/dL (11.7-16.6); Lymphocytes # 0.8 10^3/uL (0.8-4.8); Lymphocytes % 20.3 %; Mean Corpuscular HGB Conc 31.9 g/dL (30.0-36.0); Mean Corpuscular Hemoglobin 32.8 pg (28.0-34.0); Mean Corpuscular Volume 102.6 fl (80-94); Mean Platelet Volume 11.1 fL (7.4-10.4); Monocytes # 0.4 10^3/uL (0.2-0.9); Monocytes % 9.5 %; Neutrophils # 2.55 10^3/uL (1.8-7.7); Neutrophils % 65.3 %; Nucleated Red Blood Cells % 0 %; Platelet Count 156 10^3/cmm (130-400); Red Blood Count 3.45 10^6/uL (4.1-5.3); Red Cell Distribution Width 14.2 % (12.1-15.1); White Blood Count 3.9 10^3/uL (4.0-10.0)
[2022-06-16 10:06] LABS: Blood Urea Nitrogen 9 mg/dL (8-23); Calcium 8.7 mg/dL (8.5-10.5); Carbon Dioxide 22 mmol/L (22-29); Chloride 104 mmol/L (98-107); Glucose 121 mg/dL (65-115); Magnesium 1.7 mg/dL (1.7-2.3); Osmolality Calculated 284 mOsm/kg (285-295); Sodium 137 mmol/L (136-145)
[2022-06-16 10:10] LABS: Anion Gap 15.1 (5-19); Potassium 4.1 mmol/L (3.5-5.1)
--- NOTE | 2022-06-16 18:07 | PM.PN ---
Subjective Subjective: Patient was seen and examined this morning, no acute events. Medications: Medication Review Details: Generic Name Dose Route Start Last Admin Trade Name Freq PRN Reason Stop Dose Admin Acetaminophen 650 mg 05/29/22 23:06 06/13/22 13:06 Acetaminophen 32 5 Mg Tablet PO 650 mg Q6H PRN Administration Mild/Mod Pain Or Temp >/= 101 Acetaminophen 650 mg 06/03/22 14:40 06/10/22 00:24 Acetaminophen 32 5 Mg Tablet PO 650 mg Q4H PRN Administration Mild Pain or feve r >101.5 Hydrocodone Bitart /Acetaminophen 1 tab 06/13/22 17:20 06/16/22 18:01 Hydrocodone-Acet aminophen 5-325 Mg Tablet PO 1 tab Q4H PRN Administration MODERATE PAIN Alprazolam 0.5 mg 06/15/22 17:23 06/16/22 18:03 Alprazolam 0.5 M g Tablet PO 0.5 mg TID PRN Administration ANXIETY Apixaban 5 mg 05/30/22 09:00 06/16/22 18:00 Apixaban 5 Mg Ta blet PO 5 mg BID SAVANAH Administration Atorvastatin Calci um 40 mg 05/30/22 21:00 06/15/22 20:57 Atorvastatin 40 Mg Tablet PO 40 mg BEDTIME SAVANAH Administration Duloxetine HCl 30 mg 06/08/22 09:00 06/16/22 08:51 Duloxetine 30 Mg Capsule PO 30 mg DAILY SAVANAH Administration Furosemide 40 mg 06/03/22 09:00 06/12/22 08:53 Furosemide 40 Mg Tablet PO 40 mg DAILY SAVANAH Administration Lisinopril 40 mg 05/30/22 06:00 06/16/22 05:46 Lisinopril 20 Mg Tablet PO 40 mg QAM SAVANAH Administration Loperamide HCl 4 mg 06/15/22 15:59 06/15/22 17:38 Loperamide 2 Mg Capsule PO 4 mg QID PRN Administration DIARRHEA Methocarbamol 500 mg 05/29/22 23:13 06/12/22 12:06 Methocarbamol 50 0 Mg Tablet PO 500 mg TID PRN Administration muscle spasm, myrtle n Metoprolol Tartrat e 25 mg 06/12/22 09:00 06/16/22 08:51 Metoprolol Tartr ate 25 Mg Tablet PO 25 mg BID@0900,2100 SAVANAH Administration Nystatin 1 applic 06/01/22 09:30 06/16/22 08:52 Nystatin Powder 15 Gm Btl TOPICAL Not Given BID [facility] Ondansetron HCl 4 mg 06/10/22 08:53 06/12/22 11:37 Ondansetron 4 Mg Tablet PO 4 mg Q8H PRN Administration NAUSEA AND VOMITI NG Pantoprazole Sodiu m 40 mg 05/30/22 18:00 06/16/22 18:[address] 40 Mg Tablet PO 40 mg BID [facility] Administration Quetiapine Fumarat e 100 mg 06/07/22 21:00 06/15/22 20:57 Quetiapine 100 M g Tablet PO 100 mg BEDTIME [facility] Administration Tamsulosin HCl 0.4 mg 06/03/22 09:00 06/16/22 08:51 Tamsulosin 0.4 M g Capsule PO 0.4 mg DAILY SAVANAH Administration Vitals/I&O/Wt Last Vital Signs Temp 97.9 F 06/16/22 16:00 Pulse 68 06/16/22 16:00 Resp 17 06/16/22 16:00 BP 124/72 06/16/22 16:00 Pulse Ox 97 06/16/22 16:00 O2 Del Method 06/16/22 16:00 O2 Flow Rate 2 06/11/22 19:45 06/16/22 06/16/22 06/16/22 06:59 14:59 22:59 Intake Total 100 / 1480 360 / 360 Output Total 250 / 1000 100 / 100 Balance -150 / 480 260 / 260 Physical Exam Const: COMMON NORMALS: patient oriented x3 Resp: COMMON NORMALS: clear to auscultation bilaterally AUSCULTATION: clear to auscultation bilaterally Cardio: COMMON NORMALS: regular rate, regular rhythm, S1 normal heart sound present, S2 normal heart sound present, No gallops present (Cardio), No murmurs present (Cardio), No rub (Cardio) and Peripheral pulses 2+ throughout RATE: regular rate RHYTHM: regular rhythm HEART SOUNDS: S1 normal heart sound present and S2 normal heart sound present PERIPHERAL PULSES: Peripheral pulses 2+ throughout GI: COMMON NORMALS: Normal to inspection, nondistended, normoactive bowel sounds present, Soft to palpation, non-tender, No hepatosplenomegaly present and no masses AUSCULTATION: Yes normoactive bowel sounds PALPATION: Yes Soft to palpation and Yes No hepatosplenomegaly present RECTAL EXAM: Yes deferred Extremity: COMMON NORMALS: no clubbing, cyanosis or edema and no pedal edema Neuro: COMMON NORMALS: patient oriented x3 Urinary Catheter Management: Nuñez: Cath Placed During This Visit: yes Reason for Continuing Indwelling Catheter: Acute Urinary Retention or Obstruction Urinary Catheter Date of Insertion: 05/29/22 Urinary Catheter Time of Insertion: 00:00 Data : 06/16/22 09:38 06/16/22 09:38 Micro: Microbiology 06/15/22 13:14 C.difficile Toxin B Gene (PCR) - Final Stool A&P Assessment and plan (1) S/P kyphoplasty: (2) Displaced fracture of proximal end of humerus: (3) Traumatic compression fracture of thoracic vertebra: (4) Traumatic compression fracture of T12 thoracic vertebra: (5) Compression fracture: (6) Humerus fracture: (7) Osteonecrosis: (8) History of posttraumatic stress disorder (PTSD): (9) Atrial fibrillation, chronic: (10) Major depressive disorder, recurrent severe without psychotic features: (11) Post-traumatic stress disorder, chronic: Plan This patient presented for intractable pain, he was also making suicidal statements because of his pain, 96-hour hold was discontinued when he was cleared by a neuropsychiatrist, he complains of pain and anxiety, he has been seen by psychiatrist multiple times we have added antipsychotics anxiolytics and muscle relaxers which seem to improve his symptoms The main source of pain was back pain, he had multiple compression fractures, osteonecrosis Dr. Mullins was consulted who recommended kyphoplasty T11, T12, no postop complications Patient has been [facility] we are waiting for level 2 authorization for last 1 week This morning nonsustained V. tach noted 8 runs, requested magnesium and BMP level hemodynamically stable patient did not complain of any chest pain or shortness of breath A. fib without RVR continue Eliquis and AV angelica blocking agent Back pain, right humeral fracture pain under control, he is having regular bowel movement every day DVT prophylaxis covered with Eliquis Outpatient follow-up with Dr. Menard for kyphoplasty and Dr. Parker for right humeral fracture His right femur fracture does not need intervention as per orthopedics, it is showing signs of healing, he will be discharged on shoulder immobilizer Full code Regular diet Awaiting placement Nuñez catheter has been removed patient is voiding on his own Attestations Medical Necessity Statement*: Awaiting placement Coding Level of Care Code Acute Landscaping Specialist for Chg Fwd Diagnoses S/P kyphoplasty Z98.890 Displaced fracture of proximal end of humerus S42.209A Traumatic compression fracture of thoracic vertebra S22.000A Traumatic compression fracture of T12 thoracic vertebra S22.080A Compression fracture Humerus fracture S42.309A Osteonecrosis M87.9 History of posttraumatic stress disorder (PTSD) Z86.59 Atrial fibrillation, chronic I48.20 Major depressive disorder, recurrent severe without psychotic features F33.2 Post-traumatic stress disorder, chronic F43.12
[2022-06-16] MEDS: quetiapine 100 mg Tablet PO (20:23)
[2022-06-16] MEDS: atorvastatin 40 mg Tablet PO (20:23)
[2022-06-17] VITALS (11 sets, daily range): BP systolic 111–142; BP diastolic 68–85; PULSE 64–80; RESP 13–18; TEMP 36.4–37; O2SAT 90–96
[2022-06-17] MEDS: HYDROcodone-acetaminophen 5-325 mg Tablet 1 TAB PO ×3 (02:54→14:58)
[2022-06-17] MEDS: ALPRAZolam 0.5 mg Tablet PO ×4 (03:22→23:26)
[2022-06-17 06:07] LABS: Anion Gap 14.9 (5-19); Blood Urea Nitrogen 9 mg/dL (8-23); Calcium 9.1 mg/dL (8.5-10.5); Carbon Dioxide 24 mmol/L (22-29); Chloride 107 mmol/L (98-107); Glucose 86 mg/dL (65-115); Magnesium 1.8 mg/dL (1.7-2.3); Osmolality Calculated 292 mOsm/kg (285-295); Potassium 3.9 mmol/L (3.5-5.1); Sodium 142 mmol/L (136-145)
[2022-06-17] MEDS: lisinopril 20 mg Tablet 40 MG PO (06:12)
[2022-06-17] MEDS: duloxetine 30 mg Capsule PO (08:52)
[2022-06-17] MEDS: apixaban 5 mg Tablet PO ×2 (08:52→17:02)
[2022-06-17] MEDS: tamsulosin 0.4 mg Capsule PO (08:52)
[2022-06-17] MEDS: loperamide 2 mg Capsule 4 MG PO (08:53)
[2022-06-17] MEDS: pantoprazole DR 40 mg Tablet PO ×2 (08:53→17:02)
[2022-06-17] MEDS: nystatin powder 15 gm Btl 1 APPLIC TOPICAL ×2 (08:55→17:04)
[2022-06-17] MEDS: metoprolol tartrate 25 mg Tablet PO ×2 (08:55→20:32)
[2022-06-17 11:54] LABS: SARS Covid-2 Antigen negative (Negative)
--- NOTE | 2022-06-17 18:20 | P.PN_ITS ---
Subjective Subjective: Patient was seen and examined this morning, no acute events. Medications: Medication Review Details: Generic Name Dose Route Start Last Admin Trade Name Freq PRN Reason Stop Dose Admin Acetaminophen 650 mg 05/29/22 23:06 06/13/22 13:06 Acetaminophen 32 5 Mg Tablet PO 650 mg Q6H PRN Administration Mild/Mod Pain Or Temp >/= 101 Acetaminophen 650 mg 06/03/22 14:40 06/10/22 00:24 Acetaminophen 32 5 Mg Tablet PO 650 mg Q4H PRN Administration Mild Pain or feve r >101.5 Hydrocodone Bitart /Acetaminophen 1 tab 06/13/22 17:20 06/16/22 18:01 Hydrocodone-Acet aminophen 5-325 Mg Tablet PO 1 tab Q4H PRN Administration MODERATE PAIN Alprazolam 0.5 mg 06/15/22 17:23 06/16/22 18:03 Alprazolam 0.5 M g Tablet PO 0.5 mg TID PRN Administration ANXIETY Apixaban 5 mg 05/30/22 09:00 06/16/22 18:00 Apixaban 5 Mg Ta blet PO 5 mg BID SAVANAH Administration Atorvastatin Calci um 40 mg 05/30/22 21:00 06/15/22 20:57 Atorvastatin 40 Mg Tablet PO 40 mg BEDTIME SAVANAH Administration Duloxetine HCl 30 mg 06/08/22 09:00 06/16/22 08:51 Duloxetine 30 Mg Capsule PO 30 mg DAILY SAVANAH Administration Furosemide 40 mg 06/03/22 09:00 06/12/22 08:53 Furosemide 40 Mg Tablet PO 40 mg DAILY SAVANAH Administration Lisinopril 40 mg 05/30/22 06:00 06/16/22 05:46 Lisinopril 20 Mg Tablet PO 40 mg QAM SAVANAH Administration Loperamide HCl 4 mg 06/15/22 15:59 06/15/22 17:38 Loperamide 2 Mg Capsule PO 4 mg QID PRN Administration DIARRHEA Methocarbamol 500 mg 05/29/22 23:13 06/12/22 12:06 Methocarbamol 50 0 Mg Tablet PO 500 mg TID PRN Administration muscle spasm, myrtle n Metoprolol Tartrat e 25 mg 06/12/22 09:00 06/16/22 08:51 Metoprolol Tartr ate 25 Mg Tablet PO 25 mg BID@0900,2100 SAVANAH Administration Nystatin 1 applic 06/01/22 09:30 06/16/22 08:52 Nystatin Powder 15 Gm Btl TOPICAL Not Given BID [facility] Ondansetron HCl 4 mg 06/10/22 08:53 06/12/22 11:37 Ondansetron 4 Mg Tablet PO 4 mg Q8H PRN Administration NAUSEA AND VOMITI NG Pantoprazole Sodiu m 40 mg 05/30/22 18:00 06/16/22 18:[address] 40 Mg Tablet PO 40 mg BID [facility] Administration Quetiapine Fumarat e 100 mg 06/07/22 21:00 06/15/22 20:57 Quetiapine 100 M g Tablet PO 100 mg BEDTIME [facility] Administration Tamsulosin HCl 0.4 mg 06/03/22 09:00 06/16/22 08:51 Tamsulosin 0.4 M g Capsule PO 0.4 mg DAILY SAVANAH Administration Vitals/I&O/Wt Last Vital Signs Temp 98.6 F 06/17/22 15:55 Pulse 70 06/17/22 15:55 Resp 18 06/17/22 15:55 BP 128/74 06/17/22 15:55 Pulse Ox 96 06/17/22 15:55 O2 Del Method 06/17/22 15:55 O2 Flow Rate 2 06/17/22 08:00 06/17/22 06/17/22 06/17/22 06:59 14:59 22:59 Intake Total 0 / 840 480 / 480 Output Total 0 / 200 Balance 0 / 640 480 / 480 Physical Exam Const: COMMON NORMALS: patient oriented x3 Resp: COMMON NORMALS: clear to auscultation bilaterally AUSCULTATION: clear to auscultation bilaterally Cardio: COMMON NORMALS: regular rate, regular rhythm, S1 normal heart sound present, S2 normal heart sound present, No gallops present (Cardio), No murmurs present (Cardio), No rub (Cardio) and Peripheral pulses 2+ throughout RATE: regular rate RHYTHM: regular rhythm HEART SOUNDS: S1 normal heart sound present and S2 normal heart sound present PERIPHERAL PULSES: Peripheral pulses 2+ throughout GI: COMMON NORMALS: Normal to inspection, nondistended, normoactive bowel sounds present, Soft to palpation, non-tender, No hepatosplenomegaly present and no masses AUSCULTATION: Yes normoactive bowel sounds PALPATION: Yes Soft to palpation and Yes No hepatosplenomegaly present RECTAL EXAM: Yes deferred Extremity: COMMON NORMALS: no clubbing, cyanosis or edema and no pedal edema Neuro: COMMON NORMALS: patient oriented x3 Urinary Catheter Management: Nuñez: Cath Placed During This Visit: yes, but has since been removed by the nurse Reason for Continuing Indwelling Catheter: Decision to DC Catheter Urinary Catheter Date of Insertion: 05/21/22 Urinary Catheter Time of Insertion: 00:00 Date Urinary Catheter Removed: 06/04/22 Time Urinary Catheter Discontinued: 09:00 Data : 06/16/22 09:38 06/17/22 05:10 A&P Assessment and plan (1) S/P kyphoplasty: (2) Displaced fracture of proximal end of humerus: (3) Traumatic compression fracture of thoracic vertebra: (4) Traumatic compression fracture of T12 thoracic vertebra: (5) Compression fracture: (6) Humerus fracture: (7) Osteonecrosis: (8) History of posttraumatic stress disorder (PTSD): (9) Atrial fibrillation, chronic: (10) Major depressive disorder, recurrent severe without psychotic features: (11) Post-traumatic stress disorder, chronic: Plan This patient presented for intractable pain, he was also making suicidal statements because of his pain, 96-hour hold was discontinued when he was cleared by a neuropsychiatrist, he complains of pain and anxiety, he has been seen by psychiatrist multiple times we have added antipsychotics anxiolytics and muscle relaxers which seem to improve his symptoms The main source of pain was back pain, he had multiple compression fractures, osteonecrosis Dr. Mullins was consulted who recommended kyphoplasty T11, T12, no postop complications [facility] we are waiting for level 2 authorization for last 1 week This morning nonsustained V. tach noted 8 runs, requested magnesium and BMP level hemodynamically stable patient did not complain of any chest pain or shortness of breath A. fib without RVR continue Eliquis and AV angelica blocking agent Back pain, right humeral fracture pain under control, he is having regular bowel movement every day DVT prophylaxis covered with Eliquis Outpatient follow-up with Dr. Menard for kyphoplasty and Dr. Parker for right humeral fracture His right femur fracture does not need intervention as per orthopedics, it is showing signs of healing, he will be discharged on shoulder immobilizer Full code Regular diet Awaiting placement Nuñez catheter has been removed patient is voiding on his own Attestations Medical Necessity Statement*: [facility] been [facility] will be discharged tomorrow in the morning Coding Level of Care Code Acute Test Fixture Assembler for Chg Fwd Diagnoses S/P kyphoplasty Z98.890 Displaced fracture of proximal end of humerus S42.209A Traumatic compression fracture of thoracic vertebra S22.000A Traumatic compression fracture of T12 thoracic vertebra S22.080A Compression fracture Humerus fracture S42.309A Osteonecrosis M87.9 History of posttraumatic stress disorder (PTSD) Z86.59 Atrial fibrillation, chronic I48.20 Major depressive disorder, recurrent severe without psychotic features F33.2 Post-traumatic stress disorder, chronic F43.12
[2022-06-17] MEDS: quetiapine 100 mg Tablet PO (20:32)
[2022-06-17] MEDS: atorvastatin 40 mg Tablet PO (20:32)
[2022-06-17] MEDS: acetaminophen 325 mg Tablet 650 MG PO (23:27)
[2022-06-18] VITALS: BP 108/71; PULSE 63; RESP 15; TEMP 36.9; O2SAT 94
[2022-06-18 03:32] LABS: Anion Gap 12.8 (5-19); Blood Urea Nitrogen 10 mg/dL (8-23); Calcium 9.2 mg/dL (8.5-10.5); Carbon Dioxide 26 mmol/L (22-29); Chloride 104 mmol/L (98-107); Glucose 86 mg/dL (65-115); Magnesium 1.8 mg/dL (1.7-2.3); Osmolality Calculated 286 mOsm/kg (285-295); Potassium 3.8 mmol/L (3.5-5.1); Sodium 139 mmol/L (136-145)
[2022-06-18 04:00] VITALS: BP 146/87; PULSE 70; RESP 14; TEMP 36.6; O2SAT 95
[2022-06-18] MEDS: lisinopril 20 mg Tablet 40 MG PO (05:50)
[2022-06-18 06:00] VITALS: PULSE 69
[2022-06-18 08:00] VITALS: BP 156/67; PULSE 76; RESP 16; RESP 17; TEMP 36.7; O2SAT 92; O2SAT 93
--- NOTE | 2022-06-18 08:07 | P.DS_ITS ---
Discharge Providers Date of Admission: 05/29/22 22:24 Date of Discharge: June 18, 2022 Attending Provider at Admission: Nitin Kohli MD Attending Provider at Discharge: Eder Manzano MD Primary Care Provider: DARSHANA Gallo Diagnoses at Discharge Discharge Diagnosis (1) S/P kyphoplasty: Status: Acute (2) Displaced fracture of proximal end of humerus: Status: Acute (3) Traumatic compression fracture of thoracic vertebra: Status: Acute (4) Traumatic compression fracture of T12 thoracic vertebra: Status: Acute (5) Compression fracture: Status: Acute (6) Humerus fracture: Status: Acute (7) Osteonecrosis: Status: Acute (8) History of posttraumatic stress disorder (PTSD): Status: Acute (9) Atrial fibrillation, chronic: Status: Acute (10) Major depressive disorder, recurrent severe without psychotic features: Status: Acute (11) Post-traumatic stress disorder, chronic: Status: Acute Reason for Visit Reason for Visit: hyptenstion/uncontrolled pain Hospital Course Hospital Course ?61 year old male 61 year old male with a past medical history of CAD status post stenting x10, noninsulin-dependent type 2 diabetes mellitus, hypertension, status post ICD placement, history of ventricular tachycardia, history of sick sinus syndrome, depression, atrial fibrillation on Eliquis, CVA 03/2022 . He suffered a mechanical fall on 05/04/22 and diagnosed with proximal fracture of the humerus with displacement.?Patient was placed in a shoulder immobilizer presented with severe back pain he was also making suicidal statements because of his pain, 96-hour hold was discontinued when he was cleared by a neuropsychiatrist, he complains of pain and anxiety, he has been seen by psychiatrist multiple times we have added antipsychotics anxiolytics and muscle relaxers which seem to improve his symptoms The main source of back pain, was multiple compression fractures, osteonecrosis s/p kyphoplasty T11, T12, His right Displaced fracture of the proximal humerus does not need intervention as per orthopedics, patient was discharged on immobilizer. He will follow orthopedic as outpatient. For his A. fib continue Eliquis and AV angelica blocking agent. Patient responded well to above medical management he was discharged stable condition to [facility]. Physical Exam Const: COMMON NORMALS: patient oriented x3 Resp: COMMON NORMALS: clear to auscultation bilaterally AUSCULTATION: clear to auscultation bilaterally Cardio: COMMON NORMALS: regular rate, regular rhythm, S1 normal heart sound present, S2 normal heart sound present, No gallops present (Cardio), No murmurs present (Cardio), No rub (Cardio) and Peripheral pulses 2+ throughout RATE: regular rate RHYTHM: regular rhythm HEART SOUNDS: S1 normal heart sound present and S2 normal heart sound present PERIPHERAL PULSES: Peripheral pulses 2+ throughout GI: COMMON NORMALS: Normal to inspection, nondistended, normoactive bowel sounds present, Soft to palpation, non-tender, No hepatosplenomegaly present and no masses AUSCULTATION: Yes normoactive bowel sounds PALPATION: Yes Soft to palpation and Yes No hepatosplenomegaly present RECTAL EXAM: Yes deferred Extremity: COMMON NORMALS: no clubbing, cyanosis or edema and no pedal edema Neuro: COMMON NORMALS: patient oriented x3 Urinary Catheter Management: Nuñez: Cath Placed During This Visit: yes, but has since been removed by the nurse Reason for Continuing Indwelling Catheter: Decision to DC Catheter Urinary Catheter Date of Insertion: 05/21/22 Urinary Catheter Time of Insertion: 00:00 Date Urinary Catheter Removed: 06/04/22 Time Urinary Catheter Discontinued: 09:00 Discharge Data Studies Completed and Pending Completed Studies During Hospitalization Category Date Time Status CT shoulder RT w con [id number] Routine Cat Scan 06/01/22 11:11 Completed XR lumbar spine 1 view portable [XR lumbar spine 1V Exams 06/06/22 08:56 Completed port [id number]] Routine XR lumbar spine 1 view portable [XR lumbar spine 1V Exams 06/07/22 10:20 Completed port [id number]] Routine XR shoulder RT min 2V* [id number] Routine Exams 06/01/22 09:44 Completed Pathology: Surgical [PTH] Routine Pth 06/03/22 14:11 Completed Radiology Impressions Shoulder X-Ray 06/01/22 09:44 IMPRESSION: 1. Displaced fracture of the proximal humerus unchanged in position. There is some callus formation beginning to form. Shoulder CT 06/01/22 11:11 IMPRESSION: 1. Markedly comminuted impacted and displaced RIGHT humeral neck and head fracture. 2. Humeral head is laterally dislocated and displaced lateral to the proximal humeral diaphysis. 3. Numerous bony fragments extend into the region of the subscapularis tendon and muscle. Lumbar Spine X-Ray 06/07/22 10:20 IMPRESSION: 1. Multiple vertebroplasties in the thoracolumbar spine. 2. Mild to moderate multilevel spine degenerative changes including degenerative disc disease, spondylosis and facet degenerative changes. Laboratory Results WBC 3.9 10^3/uL (4.0-10.0) L 06/16/22 09:38 RBC 3.45 10^6/uL (4.1-5.3) L 06/16/22 09:38 Hgb 11.3 g/dL (11.7-16.6) L 06/16/22 09:38 Hct 35.4 % (42.0-52.0) L 06/16/22 09:38 MCV 102.6 fl (80-94) H 06/16/22 09:38 MCH 32.8 pg (28.0-34.0) 06/16/22 09:38 MCHC 31.9 g/dL (30.0-36.0) 06/16/22 09:38 RDW 14.2 % (12.1-15.1) 06/16/22 09:38 Plt Count 156 10^3/cmm (130-400) 06/16/22 09:38 MPV 11.1 fL (7.4-10.4) H 06/16/22 09:38 Neut % (Auto) 65.3 % 06/16/22 09:38 Lymph % (Auto) 20.3 % 06/16/22 09:38 [place] % (Auto) 9.5 % 06/16/22 09:38 Eos % (Auto) 3.8 % 06/16/22 09:38 Baso % (Auto) 0.8 % 06/16/22 09:38 Neut # (Auto) 2.55 10^3/uL (1.8-7.7) 06/16/22 09:38 Lymph # (Auto) 0.8 10^3/uL (0.8-4.8) 06/16/22 09:38 [place] # (Auto) 0.4 10^3/uL (0.2-0.9) 06/16/22 09:38 Eos # (Auto) 0.2 10^3/uL (0.0-0.8) 06/16/22 09:38 Baso # (Auto) 0.0 10^3/uL (0.0-0.1) 06/16/22 09:38 Nucleated RBC % (auto) 0 % 06/16/22 09:38 Nucleated RBCs # 0.0 /100WBC 06/16/22 09:38 Specimen Type Arterial 05/31/22 10:45 Sample Site Brachial, left 05/31/22 10:45 ABG pH 7.39 (7.35-7.45) 05/31/22 10:45 ABG pCO2 61.1 mmHg (35-45) H* 05/31/22 10:45 ABG pO2 76.5 mmHg (80.0-100.0) L 05/31/22 10:45 ABG HCO3 36.7 mmol/L (22-26) H 05/31/22 10:45 ABG Base Excess 9.8 mmol/L (-2.0-2.0) H 05/31/22 10:45 Michael Test N/a 05/31/22 10:45 Hematocrit 33.5 % (42-52) L 05/31/22 10:45 O2 Delivery Device Nc 05/31/22 10:45 O2 Liters/Min 2.0 % 05/31/22 10:45 FiO2 28.0 % 05/31/22 10:45 Inventory Control Manager ID Gd 05/31/22 10:45 Sodium 139 mmol/L (136-145) 06/18/22 02:38 Potassium 3.8 mmol/L (3.5-5.1) 06/18/22 02:38 Chloride 104 mmol/L (98-107) 06/18/22 02:38 Carbon Dioxide 26 mmol/L (22-29) 06/18/22 02:38 Anion Gap 12.8 (5-19) 06/18/22 02:38 BUN 10 mg/dL (8-23) 06/18/22 02:38 Creatinine 0.7 mg/dL (0.7-1.2) 06/18/22 02:38 GFR Calculation 115.0 mL/min (90-130) 06/18/22 02:38 Glucose 86 mg/dL (65-115) 06/18/22 02:38 POC Glucose 188 mg/dL (70-110) H 06/09/22 12:13 Calculated Osmolality 286 mOsm/kg (285-295) 06/18/22 02:38 Calcium 9.2 mg/dL (8.5-10.5) 06/18/22 02:38 Magnesium 1.8 mg/dL (1.7-2.3) 06/18/22 02:38 Total Bilirubin 0.2 mg/dL (0.15-1.2) 06/15/22 06:30 AST 35 U/L (0-40) 06/15/22 06:30 ALT 27 U/L (0-41) 06/15/22 06:30 Alkaline Phosphatase 185 U/L (40-130) H 06/15/22 06:30 NT-Pro-B Natriuret Pep 46 pg/mL (0-125) 06/12/22 08:46 Total Protein 5.5 g/dL (6.6-8.7) L 06/15/22 06:30 Albumin 2.8 g/dL (3.5-5.2) L 06/15/22 06:30 Globulin 2.7 g/dL (1.3-4.6) 06/15/22 06:30 SARS-CoV-2 Ag (Rapid) negative (Negative) 06/17/22 10:25 Vitals Last Vital Signs Temp 97.8 F 06/18/22 04:00 Pulse 69 06/18/22 06:00 Resp 14 06/18/22 04:00 BP 146/87 06/18/22 04:00 Pulse Ox 95 06/18/22 04:00 O2 Del Method 06/18/22 04:00 O2 Flow Rate 2 06/17/22 08:00 Discharge Plan Discharge Patient Disposition: Xfer SNF Condition: Stable Prescriptions: Continued metoprolol succinate 25 mg tablet extended release 24 hr 25 mg PO BID Ultram 50 mg tablet 50 mg PO Q6H PRN (Reason: pain) Qty: 120 0RF omeprazole 20 mg capsule,delayed release(DR/EC) 20 mg PO BID 30 Days Qty: 60 0RF loperamide [Imodium A-D] 2 mg capsule 2 mg PO QID PRN (Reason: loose stool) Qty: 14 0RF (DME) CUFF AND COLLAR SLING See Rx Instructions .Route .MEDSUPPLY Qty: 1 0RF Rx Instructions: As directed methocarbamol 500 mg tablet 500 mg PO TID PRN (Reason: muscle spasm, pain) 7 Days Qty: 21 0RF Centrum Silver Men 300-600-300 mcg tablet 1 tab PO DAILY Eliquis 5 mg tablet 5 mg PO BID Qty: 60 5RF melatonin 5 mg capsule 5 mg PO BEDTIME Qty: 30 5RF furosemide [Lasix] 40 mg tablet 40 mg PO QAM Qty: 30 5RF quetiapine [Seroquel] 200 mg tablet 200 mg PO .HS Qty: 30 1RF sertraline [Zoloft] 50 mg tablet 50 mg PO QAM Qty: 30 1RF hydroxyzine pamoate 25 mg capsule 25 mg PO .HS PRN (Reason: sleep) Qty: 30 1RF dicyclomine 20 mg tablet 20 mg PO TID Qty: 90 1RF ondansetron 8 mg tablet,disintegrating 8 mg PO Q8H 5 Days Qty: 15 0RF rosuvastatin 20 mg tablet 20 mg PO BEDTIME Qty: 30 2RF tamsulosin 0.4 mg Capsule 0.4 mg PO QAM ferrous sulfate 325 mg (65 mg iron) Tablet 325 mg PO BID nitroglycerin [Nitrostat] 0.4 mg Tablet, Sublingual 0.4 mg SUBLINGUAL Q5M PRN (Reason: Chest Pain) Rx Instructions: do not exceed 3 doses per episode lisinopril 40 mg tablet 40 mg PO QAM potassium gluconate 595 mg (99 mg) Tablet 595 mg PO QAM No Action oxycodone-acetaminophen [Percocet] 5-325 mg tablet 1 tab PO Q6H PRN (Reason: pain) 30 Days Qty: 90 0RF Discharge Orders: Discharge Order (Routine); Ordered 06/18/22 Ordered By: Eder Manzano Referrals: [facility] [Outside] Marcos Mullins DO [Physician] - 06/30/22 11:15 am Abby Nunes MD [Physician] - 07/08/22 1:15 pm Patient Instructions: Opioid Safety Activity Restrictions/Additional Instructions: With regards to her right shoulder, patient may be out of the immobilizer as tolerated. Early range of motion to be instructed by physical therapy. No lifting, but patient should be passive to active assisted range. Discharge Attestations Time Spent in Discharge Care*: less than 30 min Status at Discharge: Cognitive status at discharge: cognitively intact , Behavioral status at discharge: cooperative , Quality Metrics Clinical Quality Measures [ No reported AMI, CVA or VTE this stay] Coding Level of Care Code Acute Chg FW DC note Diagnoses S/P kyphoplasty Z98.890 Displaced fracture of proximal end of humerus S42.209A Traumatic compression fracture of thoracic vertebra S22.000A Traumatic compression fracture of T12 thoracic vertebra S22.080A Compression fracture Humerus fracture S42.309A Osteonecrosis M87.9 History of posttraumatic stress disorder (PTSD) Z86.59 Atrial fibrillation, chronic I48.20 Major depressive disorder, recurrent severe without psychotic features F33.2 Post-traumatic stress disorder, chronic F43.12
[2022-06-18] MEDS: metoprolol tartrate 25 mg Tablet PO (09:12)
[2022-06-18] MEDS: tamsulosin 0.4 mg Capsule PO (09:12)
[2022-06-18] MEDS: duloxetine 30 mg Capsule PO (09:12)
[2022-06-18] MEDS: apixaban 5 mg Tablet PO (09:12)
[2022-06-18] MEDS: pantoprazole DR 40 mg Tablet PO (09:12)
[2022-06-18] MEDS: ALPRAZolam 0.5 mg Tablet PO (09:12)
[2022-06-18] MEDS: acetaminophen 325 mg Tablet 650 MG PO (09:12)
[2022-06-18] MEDS: nystatin powder 15 gm Btl 1 APPLIC TOPICAL (09:14)
--- NOTE | 2022-06-18 09:46 | PC.NURSE ---
Called Report to Jimmy Agarwal to Sonya KIRK at [phone].
--- NOTE | 2022-06-18 12:27 | PC.NURSE ---
Discharge Note Patient discharged to [facility] via ambulance accompanied by [facility] personnel. Discharge instructions reviewed with patient and/or packaging sales representative. Mobile pharmacy medications and/or prescriptions provided. Belongings/home medications returned.
[2022-06-18 12:28] VITALS: BP 156/67; PULSE 76; RESP 17; TEMP 36.7; O2SAT 93
== END 2022-06-18 12:29 | disposition skilled nursing facility (03) ==
LOC: ICU 05-30 08:04 → MEDSURG 06-02 08:00 → ICU 06-03 14:38 → MEDSURG 06-03 14:38
PROVIDERS: Internal Medicine; Orthopaedic Surgery; Student in an Organized Health Care Education/Training Program; Admitting Provider Family Medicine; PCP Nurse Practitioner Family; Visit Provider Internal Medicine
PROC: (CPT 22513; principal; 2022-06-03 12:10)
DX: S22.080A Wedge compression fracture of T11-T12 vertebra, initial encounter for closed fracture (principal); X58.XXXA Exposure to other specified factors, initial encounter; Z75.1 Person awaiting admission to adequate facility elsewhere; Z79.01 Long term (current) use of anticoagulants; I48.20 Chronic atrial fibrillation, unspecified; F43.12 Post-traumatic stress disorder, chronic; F33.2 Major depressive disorder, recurrent severe without psychotic features; M87.9 Osteonecrosis, unspecified; R19.7 Diarrhea, unspecified; E11.9 Type 2 diabetes mellitus without complications; Z95.0 Presence of cardiac pacemaker; I25.10 Atherosclerotic heart disease of native coronary artery without angina pectoris; Z95.5 Presence of coronary angioplasty implant and graft; E66.01 Morbid (severe) obesity due to excess calories; Z68.41 Body mass index [BMI] 40.0-44.9, adult; I10 Essential (primary) hypertension
CPT/HCPCS: 22513; 22515; 36415; 36416; 36600; 72020; 73030; 73201; 76000; 80048; 80053; 82803; 82962; 83735; 83880; 85025; 87426; 87493; 87506; 88307; 88311; 97110; 97116; 97162; 97167; 97530; 97535; G0378; G0379; J0131; J0330; J0690; J1100; J1170; J1885; J2250; J2370; J2405; J2704; J2795; J3010; J3475; J3480; J3490; J7030; Q0162; Q9967

== ENCOUNTER → 2022-07-08 13:10 | Outpatient (BNVA) | payer MEDICARE, MEDICAID, SELFPAY | PROVIDERS: PCP Nurse Practitioner Family; Visit Provider Specialist | DX: S42.291D Other displaced fracture of upper end of right humerus, subsequent encounter for fracture with routine healing (principal); X58.XXXD Exposure to other specified factors, subsequent encounter | CPT/HCPCS: 73030; 99213 ==

== ENCOUNTER → 2022-07-09 09:40 | Outpatient (BNVA) | payer MEDICARE, MEDICAID, SELFPAY | PROVIDERS: PCP Nurse Practitioner Family; Visit Provider Orthopaedic Surgery | DX: M48.062 Spinal stenosis, lumbar region with neurogenic claudication (principal); G89.18 Other acute postprocedural pain | CPT/HCPCS: 72100; 99213 ==

== ENCOUNTER → 2022-07-23 10:00 | Outpatient (BNVA) | payer MEDICARE, MEDICAID, SELFPAY | PROVIDERS: PCP Nurse Practitioner Family; Referring Provider Orthopaedic Surgery; Visit Provider Anesthesiology Pain Medicine | DX: M48.062 Spinal stenosis, lumbar region with neurogenic claudication (principal); M47.816 Spondylosis without myelopathy or radiculopathy, lumbar region; M79.604 Pain in right leg; M79.605 Pain in left leg | CPT/HCPCS: 99205 ==

== ENCOUNTER → 2022-08-31 09:12 | Outpatient (BNVA) | payer MEDICARE, MEDICAID, OTHER, SELFPAY | PROVIDERS: PCP Nurse Practitioner Family; Visit Provider Anesthesiology Pain Medicine | DX: M48.062 Spinal stenosis, lumbar region with neurogenic claudication (principal); M47.816 Spondylosis without myelopathy or radiculopathy, lumbar region | CPT/HCPCS: 99214 ==

== ENCOUNTER 2022-09-12 15:31 | Inpatient (IN) | payer MEDICARE, MEDICAID, SELFPAY ==
[2022-09-12] VITALS (55 sets, daily range): BP systolic 64–143; BP diastolic 39–77; PULSE 80–124; RESP 11–27; TEMP 35.7–36.4; O2SAT 92–100; BMI 38.9; BMI 35.4; BMI 34.9
--- NOTE | 2022-09-12 15:44 | XRR_ITS ---
PROCEDURE INFORMATION: Exam: XR Chest Exam date and time: 09/12/2022 3:48 PM Age: 61 years old Clinical indication: Cough and dyspnea; Additional info: Dyspnea/cough TECHNIQUE: Imaging protocol: Radiologic exam of the chest. Views: 1 view. COMPARISON: OT XR chest 1V portable [id number] 05/27/2022 8:33 AM FINDINGS: Tubes, catheters and devices: Pacemaker. Lungs: Unremarkable. No consolidation. Pleural spaces: Unremarkable. No pleural effusion. No pneumothorax. Heart/Mediastinum: Unremarkable. No cardiomegaly. 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 Bones/joints: Right humeral head and neck fracture somewhat visualized. XR/XR chest 1V portable [id number] IMPRESSION: 1. Negative for infiltrate. 2. Right humeral head and neck fracture somewhat visualized.
--- NOTE | 2022-09-12 15:45 | ECG_ITS ---
[facility] Test Date: 2022-09-12 Pat Name: Jeremie Alexander Department: Room: Gender: Male Rec Therapist: : 1960 Requested By: Gilberto Mireles Order Number: [id number] Lucinda MD: Joyce Gonzalez M.D. Measurements Intervals [place] Rate: 87 P: 31 WI: 133 QRS: -8 QRSD: 98 T: 28 QT: 394 QTc: 474 Interpretive Statements SINUS RHYTHM Compared to ECG 03/27/2022 14:33:44 Atrial-paced complex(es) or rhythm no longer present T-wave abnormality no longer present Electronically Signed On 09-12-2022 18:22:24 MATERIAL CARRIER by Joyce Gonzalez M.D. [id number]
--- NOTE | 2022-09-12 15:49 | CTR_ITS ---
PROCEDURE INFORMATION: Exam: CT Abdomen And Pelvis Without Contrast Exam date and time: 09/12/2022 5:29 PM Age: 61 years old Clinical indication: Abdominal pain; Generalized; Prior surgery; Surgery type: Hips; TECHNIQUE: Imaging protocol: Computed tomography of the abdomen and pelvis without contrast. Radiation optimization: All CT scans at this facility use at least one of these dose optimization techniques: automated exposure control; mA and/or kV adjustment per patient size (includes targeted exams where dose is matched to clinical indication); or iterative reconstruction. Other protocol: This patient has received 20 known CTs and 0 known cardiac nuclear medicine studies in the 12 months prior to the current study. COMPARISON: CT abdomen pelvis wo con [id number] 05/26/2022 6:14 PM RADIATION DOSE METRICS: Total DLP (mGy-cm): 1104.12 FINDINGS: Tubes, catheters and devices: Partially visualized pacemaker leads. Pleural spaces: Small bilateral pleural effusions with adjacent compressive atelectasis or pneumonia. Coronary arteries: Multivessel atherosclerotic disease which involves the coronary arteries. Liver: Normal. No mass. Gallbladder and bile ducts: The gallbladder has been removed. Pancreas: Mild fatty atrophy of the pancreas. Spleen: Normal. No splenomegaly. Adrenal glands: Normal. No mass. Kidneys and ureters: 10 mm cyst with benign features off the left kidney. Follow-up is not necessary. Stomach and bowel: There are air-fluid levels in multiple dilated proximal and mid small bowel loops. Distal ileum is of normal caliber. Transition point is in the right lower quadrant abdomen. There are gastric bypass changes. Appendix: No evidence of appendicitis. Intraperitoneal space: Unremarkable. No free air. No significant fluid collection. Vasculature: Unremarkable. No abdominal aortic aneurysm. Lymph nodes: Unremarkable. No enlarged lymph nodes. Urinary bladder: There is a Nuñez catheter and air in the bladder. The bladder is partially obscured by artifact from the total hip replacements. Reproductive: Unremarkable as visualized. Bones/joints: T11 and T12 vertebroplasty changes associated with chronic compression fractures. Degenerative changes are present in the visualized spine. Bilateral total hip replacements. Soft tissues: Unremarkable. CT/CT abdomen pelvis wo con [id number] IMPRESSION: 1. Findings as stated above are consistent with a distal small-bowel obstruction. 2. Small bilateral pleural effusions with adjacent compressive atelectasis or pneumonia. COMMENTS: Consistent with the [employer]'s Incidental Findings Committee white paper (J Am Arnaldo Radiol 2018): Any incidental renal lesion less than 1 cm or classified as too small to characterize, or any incidental cystic renal lesion characterized as simple-appearing, is likely benign. No follow-up imaging is recommended for these lesions per consensus recommendations based on imaging criteria.
[2022-09-12] MEDS: sodium chloride 0.9% 1,000 ML 999 ML IV ×4 (15:54→18:24)
--- NOTE | 2022-09-12 15:57 | W.ED.GENADLT ---
Documented by User: Gilberto Ang DO 09/13/22 16:45 HPI - General Adult General: Chief complaint: Shortness of Breath/Dyspnea Stated complaint: AMS; HYPOTENSION Time Seen by Provider: 09/12/22 15:35 Source: patient Mode of arrival: EMS History of Present Illness: 61-year-old male presents to the emergency room with complaint of altered mental status hypotension he has been vomiting combination of coffee-ground with some bright red blood over the last couple of days he denies any history of previous upper GI bleed. He was previously on Eliquis but states he quit a couple of months ago. He denies any fever sweats or chills no hematochezia. He denies any history of cirrhosis or esophageal varices. No chest pain at this time. Onset (ago): day(s) Location: abdomen Severity: severe Quality: aching Pain Consistency: constant Relieving factors: none Exacerbating factors: none Associated symptoms: Reports confusion, decreased appetite, malaise, nausea, vomiting and weakness; Deny chest pain, cough, diaphoresis, dyspnea, fevers/chills, headache(s), rash, palpitations, seizures, short of breath or syncope Treatments prior to arrival: none Review of Systems Const: Reports: malaise; Denies: fever(s), chills, fatigue or diaphoresis ENMT: Denies: throat pain, ear or mastoid pain, nasal discharge or nasal congestion Card: Denies: chest pain, palpitations or syncope Resp: Denies: dyspnea GI: Reports: abdominal pain, nausea, vomiting, hematemesis, coffee ground emesis and GI cramping : Denies: flank pain, difficulty urinating, dysuria, urinary frequency or urinary urgency Musc: Denies: neck pain or back pain Skin/Breast: Denies: rash Neuro: Reports: confusion; Denies: headache(s) PFS ED PFSH: Medical History (Updated 09/13/22 @ 12:33 by Eder Manzano MD) Acute ischemic stroke Afib Anxiety and depression Atrial fibrillation Atrial fibrillation, chronic Back pain CAD (coronary artery disease) Chest pain Chest pain Chronic anticoagulation Chronic thoracic back pain Compression fracture Diabetes Displaced fracture of proximal end of humerus Flu-like symptoms Focal sensory loss History of posttraumatic stress disorder (PTSD) HTN (hypertension) Humerus fracture Hypertensive urgency Intractable pain Lacunar infarction Major depressive disorder, 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, 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 Pacemaker Pneumonia Post-traumatic stress disorder, chronic Psychiatric care SSS (sick sinus syndrome) Suicidal thoughts Syncope Tachycardia Transaminitis Traumatic compression fracture of T12 thoracic vertebra Traumatic compression fracture of thoracic vertebra Surgical History Gastric banding status S/P kyphoplasty S/P placement of cardiac pacemaker Status post cholecystectomy Family History Father CAD (coronary artery disease) Mother Cancer Social History Smoking and tobacco status: former smoker (quit 15 years ago) Second hand smoke exposure: No Alcohol intake: never Household members: spouse Housing: House History of recent travel: No Physical Exam Const: GENERAL APPEARANCE: cooperative ORIENTATION/CONSCIOUSNESS: Yes awake, Yes oriented to person, Yes oriented to place and Yes oriented to time HENMT: COMMON NORMALS: normocephalic, atraumatic and hearing grossly normal bilaterally HEAD & SCALP: normocephalic and atraumatic Eye: COMMON NORMALS: Equal, round and reactive pupils present, EOMs intact bilaterally, conjunctivae normal and no scleral icterus CONJUNCTIVA: Yes conjunctivae normal PUPIL: Yes Equal, round and reactive pupils present Neck/C-Spine: COMMON NORMALS: full ROM, no lymphadenopathy, supple and no JVD Lymph: LYMPHATIC: no lymphadenopathy noted and no lymphedema noted Resp: COMMON NORMALS: normal respiratory effort, No retractions, No use of accessory muscles and clear to auscultation bilaterally AUSCULTATION: clear to auscultation bilaterally Cardio: COMMON NORMALS: no JVD, regular rate, regular rhythm and No murmurs present (Cardio) RATE: regular rate RHYTHM: regular rhythm GI: COMMON NORMALS: No hepatosplenomegaly present AUSCULTATION: Yes Absent bowel sounds PALPATION: Yes Tenderness to palpation present (GI) (Diffuse), No Guarding due to palpation present (GI) and Yes No hepatosplenomegaly present PERCUSSION: tympanic to percussion Extremity: COMMON NORMALS: normal to inspection, capillary refill normal, no clubbing, cyanosis or edema, no calf tenderness and no pedal edema Neuro: SENSORIUM/ORIENTATION: Yes oriented to person, Yes oriented to place and Yes oriented to time Skin: COMMON NORMALS: no rashes or lesions noted GENERAL SKIN EXAM: no rashes or lesions noted Course Vital Signs: Vital signs: Vital Signs Temperature 99.4 F 09/13/22 04:40 Pulse Rate 73 09/13/22 16:00 Respiratory Rate 17 09/13/22 14:00 Blood Pressure 175/107 09/13/22 16:00 Pulse Oximetry 98 09/13/22 16:00 Oxygen Delivery Me thod 09/12/22 22:05 Oxygen Flow Rate 2 09/12/22 20:10 Fraction of Inspir ed Oxygen 35 09/13/22 14:00 MDM - General Adult Medical Decision Making Patient is acutely obstructed according to CT he has lactic acid of 7 secondary finding of a bladder infection has previously had a gastric bypass and hernia mesh repair. Initial resuscitation on arrival as patient's blood pressure was unstable less than 100 he was started on Levophed and given a full fluid sepsis bolus. He is also given prophylactic Levaquin. No report of free air on the CT I discussed with on-call surgery they are willing to see the patient. Admit with Dr. Melchor. Orders written Medical Records I reviewed the patient's medical records. Lab Data I reviewed the patient's lab results. 09/12/22 15:43 09/12/22 15:43 Radiology Impressions Abdomen/Pelvis CT 09/12/22 15:49 IMPRESSION: 1. Findings as stated above are consistent with a distal small-bowel obstruction. 2. Small bilateral pleural effusions with adjacent compressive atelectasis or pneumonia. COMMENTS: Consistent with the [employer]'s Incidental Findings Committee white paper (J Am Arnaldo Radiol 2018): Any incidental renal lesion less than 1 cm or classified as too small to characterize, or any incidental cystic renal lesion characterized as simple-appearing, is likely benign. No follow-up imaging is recommended for these lesions per consensus recommendations based on imaging criteria. Shoulder X-Ray 09/12/22 18:09 IMPRESSION: There are chronic displaced fractures of the proximal humerus with interval callus formation and possible osseous bridging. These fractures were acute on the prior radiographs. KUB X-Ray 09/12/22 22:37 IMPRESSION: 1. Endotracheal tube tip in place 2 cm above the my. 2. Enteric tube tip below the diaphragm over the gastric bubble. 3. Pacemaker. 4. Right central venous catheter with tip just distal to the atrial caval junction. 5. Patchy bilateral hilar mixed interstitial and airspace infiltrates. Chest X-Ray 09/13/22 06:00 IMPRESSION: Increased central pulmonary opacities likely reflecting pulmonary edema changes. Laboratory Results WBC 5.4 10^3/uL (4.0-10.0) 09/12/22 15:43 RBC 3.98 10^6/uL (4.1-5.3) L 09/12/22 15:43 Hgb 12.6 g/dL (11.7-16.6) 09/12/22 15:43 Hct 38.1 % (42.0-52.0) L 09/12/22 15:43 MCV 95.7 fl (80-94) H 09/12/22 15:43 MCH 31.7 pg (28.0-34.0) 09/12/22 15:43 MCHC 33.1 g/dL (30.0-36.0) 09/12/22 15:43 RDW 19.3 % (12.1-15.1) H 09/12/22 15:43 Plt Count 187 10^3/cmm (130-400) 09/12/22 15:43 MPV 11.8 fL (7.4-10.4) H 09/12/22 15:43 Neut % (Auto) 80.4 % 09/12/22 15:43 Lymph % (Auto) 13.0 % 09/12/22 15:43 [place] % (Auto) 5.4 % 09/12/22 15:43 Eos % (Auto) 0.2 % 09/12/22 15:43 Baso % (Auto) 0.4 % 09/12/22 15:43 Neut # (Auto) 4.34 10^3/uL (1.8-7.7) 09/12/22 15:43 Lymph # (Auto) 0.7 10^3/uL (0.8-4.8) L 09/12/22 15:43 [place] # (Auto) 0.3 10^3/uL (0.2-0.9) 09/12/22 15:43 Eos # (Auto) 0.0 10^3/uL (0.0-0.8) 09/12/22 15:43 Baso # (Auto) 0.0 10^3/uL (0.0-0.1) 09/12/22 15:43 Nucleated RBC % (auto) 0 % 09/12/22 15:43 Nucleated RBCs # 0.0 /100WBC 09/12/22 15:43 PT 14.00 SECONDS (12.1-14.9) 09/12/22 15:43 INR 1.05 (0.8-1.2) 09/12/22 15:43 APTT 43.4 SECONDS (23.9-36.7) H 09/12/22 15:43 Specimen Type Arterial 09/12/22 15:49 Sample Site Radial, left 09/12/22 15:49 ABG pH 7.26 (7.35-7.45) L 09/12/22 15:49 ABG pCO2 42.0 mmHg (35-45) 09/12/22 15:49 ABG pO2 45.1 mmHg (80.0-100.0) L 09/12/22 15:49 ABG HCO3 18.7 mmol/L (22-26) L 09/12/22 15:49 ABG O2 Saturation 70.4 09/12/22 15:49 ABG Base Excess -8.0 mmol/L (-2.0-2.0) L 09/12/22 15:49 Michael Test Pos 09/12/22 15:49 A-a O2 Gradient 13.6 mmHg (5-10) H 09/12/22 15:49 Hematocrit 34.1 % (42-52) L 09/12/22 15:49 Hgb O2 Saturation 69.7 % (95-100) L 09/12/22 15:49 Carboxyhemoglobin < 1.0 %THgb (0.4-20.1) 09/12/22 15:49 Methemoglobin 1.1 % (0.4-1.5) 09/12/22 15:49 Total Hemoglobin 11.1 g/dL (14-18) L 09/12/22 15:49 Sodium 130.0 mmol/L (131-143) L 09/12/22 15:49 Potassium 3.5 mmol/L (3.5-5.0) 09/12/22 15:49 Glucose 131.0 mg/dL (70-115) H 09/12/22 15:49 Ionized Calcium 0.9 mmol/L (1.1-1.4) L 09/12/22 15:49 O2 Delivery Device Nc 09/12/22 15:49 O2 Liters/Min 2.0 % 09/12/22 15:49 FiO2 28.0 % 09/12/22 15:49 Diaper Machine Tender ID Cak 09/12/22 15:49 Sodium 129 mmol/L (136-145) L 09/12/22 15:43 Potassium 3.9 mmol/L (3.5-5.1) 09/12/22 15:43 Chloride 90 mmol/L (98-107) L 09/12/22 15:43 Carbon Dioxide 17 mmol/L (22-29) L 09/12/22 15:43 Anion Gap 25.9 (5-19) H 09/12/22 15:43 BUN 35 mg/dL (8-23) H 09/12/22 15:43 Creatinine 2.6 mg/dL (0.7-1.2) H 09/12/22 15:43 GFR Calculation 25.3 mL/min (90-130) L 09/12/22 15:43 Glucose 150 mg/dL (65-115) H 09/12/22 15:43 Calculated Osmolality 279 mOsm/kg (285-295) L 09/12/22 15:43 Lactic Acid 7.0 mmol/L (0.5-2.2) H* 09/12/22 15:43 Calcium 7.1 mg/dL (8.5-10.5) L 09/12/22 15:43 Total Bilirubin 1.0 mg/dL (0.15-1.2) 09/12/22 15:43 AST 31 U/L (0-40) 09/12/22 15:43 ALT 82 U/L (0-41) H 09/12/22 15:43 Alkaline Phosphatase 234 U/L (40-130) H 09/12/22 15:43 Ammonia 58 umol/L (16-60) 09/12/22 15:50 Creatine Kinase 46 U/L (39-308) 09/12/22 15:43 Troponin T Baseline 32 ng/L (0-15) H 09/12/22 15:43 Troponin T 120 Minute 24.42 ng/L (0-15) H 09/12/22 17:30 Delta Troponin T -7.58 ABS# (0-10) L 09/12/22 17:30 Total Protein 5.0 g/dL (6.6-8.7) L 09/12/22 15:43 Albumin 2.7 g/dL (3.5-5.2) L 09/12/22 15:43 Globulin 2.3 g/dL (1.3-4.6) 09/12/22 15:43 Urine Color Dark yellow (Yellow) 09/12/22 16:20 Urine Appearance Hazy (CLEAR) A 09/12/22 16:20 Urine pH 5 (5-7) 09/12/22 16:20 Ur Specific [place] 1.020 (1.005-1.030) 09/12/22 16:20 Urine Protein Trace (Negative) 09/12/22 16:20 Urine Glucose (UA) Norm (Normal) 09/12/22 16:20 Urine Ketones Negative (Negative) 09/12/22 16:20 Urine Blood Neg (Negative) 09/12/22 16:20 Urine Nitrate Negative (Negative) 09/12/22 16:20 Urine Bilirubin 2+ (Negative) H 09/12/22 16:20 Urine Urobilinogen 1 mg/dL (Negative) H 09/12/22 16:20 Ur Leukocyte Esterase 2+ (Negative) H 09/12/22 16:20 Urine RBC None /hpf (0-2) 09/12/22 16:20 Urine WBC 55-80 /hpf (0-5) H 09/12/22 16:20 Ur Squamous Epith Cells 0-4 /hpf (0-5) H 09/12/22 16:20 Amorphous Sediment Not Reportable 09/12/22 16:20 Urine Bacteria 1+ /hpf (NONE) H 09/12/22 16:20 Urine Mucus 1+ /hpf 09/12/22 16:20 Blood Type O Positive 09/12/22 15:50 Rho(D) Type Positive 09/12/22 15:50 Antibody Screen Negative 09/12/22 15:50 Critical Care Time Critical Care Time: Critical Care Time: Yes Total Critical Care Time: 40 Attestation: The high probability of a clinically significant, sudden or life threatening deterioration of the patient's vascular system(s) required my full and direct attention, intervention and personal management. The critical care time is as shown. This time is in addition to time spent performing any reported procedures but includes the following: [x] Data and vital sign review and interpretation [x] Patient assessment, examination and intervention [x] Documentation [x] Medication orders and management Discharge Plan Discharge Patient Disposition: Admitted As Inpatient Admit Provider: Shena Saucedo Clinical Impression: Lactic acid acidosis, UTI (urinary tract infection) Condition: Stable Coding Level of Care Code ED [employer] for Chg Fwd Documented by User: Anastacio Christensen, 09/13/22 02:32 HPI - General Adult General: Chief complaint: Shortness of Breath/Dyspnea Stated complaint: AMS; HYPOTENSION Time Seen by Provider: 09/12/22 15:35 PFSH ED PFSH: Medical History (Updated 09/13/22 @ 12:33 by Eder Manzano MD) Acute ischemic stroke Afib Anxiety and depression Atrial fibrillation Atrial fibrillation, chronic Back pain CAD (coronary artery disease) Chest pain Chest pain Chronic anticoagulation Chronic thoracic back pain Compression fracture Diabetes Displaced fracture of proximal end of humerus Flu-like symptoms Focal sensory loss History of posttraumatic stress disorder (PTSD) HTN (hypertension) Humerus fracture Hypertensive urgency Intractable pain Lacunar infarction Major depressive disorder, 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, 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 Pacemaker Pneumonia Post-traumatic stress disorder, chronic Psychiatric care SSS (sick sinus syndrome) Suicidal thoughts Syncope Tachycardia Transaminitis Traumatic compression fracture of T12 thoracic vertebra Traumatic compression fracture of thoracic vertebra Surgical History Gastric banding status S/P kyphoplasty S/P placement of cardiac pacemaker Status post cholecystectomy Family History Father CAD (coronary artery disease) Mother Cancer Social History Smoking and tobacco status: former smoker (quit 15 years ago) Second hand smoke exposure: No Alcohol intake: never Household members: spouse Housing: House History of recent travel: No Course Vital Signs: Vital signs: Vital Signs Temperature 99.4 F 09/13/22 04:40 Pulse Rate 73 09/13/22 16:00 Respiratory Rate 17 09/13/22 14:00 Blood Pressure 175/107 09/13/22 16:00 Pulse Oximetry 98 09/13/22 16:00 Oxygen Delivery Me thod 09/12/22 22:05 Oxygen Flow Rate 2 09/12/22 20:10 Fraction of Inspir ed Oxygen 35 09/13/22 14:00 MDM - General Adult Medical Decision Making Patient is acutely obstructed according to CT he has lactic acid of 7 secondary finding of a bladder infection has previously had a gastric bypass and hernia mesh repair. Initial resuscitation on arrival as patient's blood pressure was unstable less than 100 he was started on Levophed and given a full fluid sepsis bolus. He is also given prophylactic Levaquin. No report of free air on the CT I discussed with on-call surgery they are willing to see the patient. Admit with Dr. Melchor. Orders written My name was inadvertently placed on this patient's chart. I did not see the patient. Lab Data 09/12/22 15:43 09/12/22 15:43 Radiology Impressions Abdomen/Pelvis CT 09/12/22 15:49 IMPRESSION: 1. Findings as stated above are consistent with a distal small-bowel obstruction. 2. Small bilateral pleural effusions with adjacent compressive atelectasis or pneumonia. COMMENTS: Consistent with the [employer]'s Incidental Findings Committee white paper (J Am Arnaldo Radiol 2018): Any incidental renal lesion less than 1 cm or classified as too small to characterize, or any incidental cystic renal lesion characterized as simple-appearing, is likely benign. No follow-up imaging is recommended for these lesions per consensus recommendations based on imaging criteria. Shoulder X-Ray 09/12/22 18:09 IMPRESSION: There are chronic displaced fractures of the proximal humerus with interval callus formation and possible osseous bridging. These fractures were acute on the prior radiographs. KUB X-Ray 09/12/22 22:37 IMPRESSION: 1. Endotracheal tube tip in place 2 cm above the my. 2. Enteric tube tip below the diaphragm over the gastric bubble. 3. Pacemaker. 4. Right central venous catheter with tip just distal to the atrial caval junction. 5. Patchy bilateral hilar mixed interstitial and airspace infiltrates. Chest X-Ray 09/13/22 06:00 IMPRESSION: Increased central pulmonary opacities likely reflecting pulmonary edema changes. Laboratory Results WBC 5.4 10^3/uL (4.0-10.0) 09/12/22 15:43 RBC 3.98 10^6/uL (4.1-5.3) L 09/12/22 15:43 Hgb 12.6 g/dL (11.7-16.6) 09/12/22 15:43 Hct 38.1 % (42.0-52.0) L 09/12/22 15:43 MCV 95.7 fl (80-94) H 09/12/22 15:43 MCH 31.7 pg (28.0-34.0) 09/12/22 15:43 MCHC 33.1 g/dL (30.0-36.0) 09/12/22 15:43 RDW 19.3 % (12.1-15.1) H 09/12/22 15:43 Plt Count 187 10^3/cmm (130-400) 09/12/22 15:43 MPV 11.8 fL (7.4-10.4) H 09/12/22 15:43 Neut % (Auto) 80.4 % 09/12/22 15:43 Lymph % (Auto) 13.0 % 09/12/22 15:43 [place] % (Auto) 5.4 % 09/12/22 15:43 Eos % (Auto) 0.2 % 09/12/22 15:43 Baso % (Auto) 0.4 % 09/12/22 15:43 Neut # (Auto) 4.34 10^3/uL (1.8-7.7) 09/12/22 15:43 Lymph # (Auto) 0.7 10^3/uL (0.8-4.8) L 09/12/22 15:43 [place] # (Auto) 0.3 10^3/uL (0.2-0.9) 09/12/22 15:43 Eos # (Auto) 0.0 10^3/uL (0.0-0.8) 09/12/22 15:43 Baso # (Auto) 0.0 10^3/uL (0.0-0.1) 09/12/22 15:43 Nucleated RBC % (auto) 0 % 09/12/22 15:43 Nucleated RBCs # 0.0 /100WBC 09/12/22 15:43 PT 14.00 SECONDS (12.1-14.9) 09/12/22 15:43 INR 1.05 (0.8-1.2) 09/12/22 15:43 APTT 43.4 SECONDS (23.9-36.7) H 09/12/22 15:43 Specimen Type Arterial 09/12/22 15:49 Sample Site Radial, left 09/12/22 15:49 ABG pH 7.26 (7.35-7.45) L 09/12/22 15:49 ABG pCO2 42.0 mmHg (35-45) 09/12/22 15:49 ABG pO2 45.1 mmHg (80.0-100.0) L 09/12/22 15:49 ABG HCO3 18.7 mmol/L (22-26) L 09/12/22 15:49 ABG O2 Saturation 70.4 09/12/22 15:49 ABG Base Excess -8.0 mmol/L (-2.0-2.0) L 09/12/22 15:49 Michael Test Pos 09/12/22 15:49 A-a O2 Gradient 13.6 mmHg (5-10) H 09/12/22 15:49 Hematocrit 34.1 % (42-52) L 09/12/22 15:49 Hgb O2 Saturation 69.7 % (95-100) L 09/12/22 15:49 Carboxyhemoglobin < 1.0 %THgb (0.4-20.1) 09/12/22 15:49 Methemoglobin 1.1 % (0.4-1.5) 09/12/22 15:49 Total Hemoglobin 11.1 g/dL (14-18) L 09/12/22 15:49 Sodium 130.0 mmol/L (131-143) L 09/12/22 15:49 Potassium 3.5 mmol/L (3.5-5.0) 09/12/22 15:49 Glucose 131.0 mg/dL (70-115) H 09/12/22 15:49 Ionized Calcium 0.9 mmol/L (1.1-1.4) L 09/12/22 15:49 O2 Delivery Device Nc 09/12/22 15:49 O2 Liters/Min 2.0 % 09/12/22 15:49 FiO2 28.0 % 09/12/22 15:49 Diaper Machine Tender ID Cak 09/12/22 15:49 Sodium 129 mmol/L (136-145) L 09/12/22 15:43 Potassium 3.9 mmol/L (3.5-5.1) 09/12/22 15:43 Chloride 90 mmol/L (98-107) L 09/12/22 15:43 Carbon Dioxide 17 mmol/L (22-29) L 09/12/22 15:43 Anion Gap 25.9 (5-19) H 09/12/22 15:43 BUN 35 mg/dL (8-23) H 09/12/22 15:43 Creatinine 2.6 mg/dL (0.7-1.2) H 09/12/22 15:43 GFR Calculation 25.3 mL/min (90-130) L 09/12/22 15:43 Glucose 150 mg/dL (65-115) H 09/12/22 15:43 Calculated Osmolality 279 mOsm/kg (285-295) L 09/12/22 15:43 Lactic Acid 7.0 mmol/L (0.5-2.2) H* 09/12/22 15:43 Calcium 7.1 mg/dL (8.5-10.5) L 09/12/22 15:43 Total Bilirubin 1.0 mg/dL (0.15-1.2) 09/12/22 15:43 AST 31 U/L (0-40) 09/12/22 15:43 ALT 82 U/L (0-41) H 09/12/22 15:43 Alkaline Phosphatase 234 U/L (40-130) H 09/12/22 15:43 Ammonia 58 umol/L (16-60) 09/12/22 15:50 Creatine Kinase 46 U/L (39-308) 09/12/22 15:43 Troponin T Baseline 32 ng/L (0-15) H 09/12/22 15:43 Troponin T 120 Minute 24.42 ng/L (0-15) H 09/12/22 17:30 Delta Troponin T -7.58 ABS# (0-10) L 09/12/22 17:30 Total Protein 5.0 g/dL (6.6-8.7) L 09/12/22 15:43 Albumin 2.7 g/dL (3.5-5.2) L 09/12/22 15:43 Globulin 2.3 g/dL (1.3-4.6) 09/12/22 15:43 Urine Color Dark yellow (Yellow) 09/12/22 16:20 Urine Appearance Hazy (CLEAR) A 09/12/22 16:20 Urine pH 5 (5-7) 09/12/22 16:20 Ur Specific [place] 1.020 (1.005-1.030) 09/12/22 16:20 Urine Protein Trace (Negative) 09/12/22 16:20 Urine Glucose (UA) Norm (Normal) 09/12/22 16:20 Urine Ketones Negative (Negative) 09/12/22 16:20 Urine Blood Neg (Negative) 09/12/22 16:20 Urine Nitrate Negative (Negative) 09/12/22 16:20 Urine Bilirubin 2+ (Negative) H 09/12/22 16:20 Urine Urobilinogen 1 mg/dL (Negative) H 09/12/22 16:20 Ur Leukocyte Esterase 2+ (Negative) H 09/12/22 16:20 Urine RBC None /hpf (0-2) 09/12/22 16:20 Urine WBC 55-80 /hpf (0-5) H 09/12/22 16:20 Ur Squamous Epith Cells 0-4 /hpf (0-5) H 09/12/22 16:20 Amorphous Sediment Not Reportable 09/12/22 16:20 Urine Bacteria 1+ /hpf (NONE) H 09/12/22 16:20 Urine Mucus 1+ /hpf 09/12/22 16:20 Blood Type O Positive 09/12/22 15:50 Rho(D) Type Positive 09/12/22 15:50 Antibody Screen Negative 09/12/22 15:50 Discharge Plan Discharge Patient Disposition: Admitted As Inpatient Admit Provider: Shena Saucedo Clinical Impression: Lactic acid acidosis, UTI (urinary tract infection) Condition: Stable Coding Level of Care Code ED [employer] for Anabela Clark
[2022-09-12 16:00] LABS: ABG PH Result 7.26 (7.35-7.45); Alveolar-Arterial Oxygen Gradi 13.6 mmHg (5-10); Arterial Blood Gas Hematocrit 34.1 % (42-52); Blood Gas Allen Test Pos; Blood Gas Operator Identificat CAK; Blood Gas Sample Site Radial, left; Blood Gas Sample Type Arterial; Carboxyhemoglobin < 1.0 %THgb (0.4-20.1); HCO3 ABG 18.7 mmol/L (22-26); HGB O2 Sat 69.7 % (95-100); Ionized Calcium Level - ABG 0.9 mmol/L (1.1-1.4); Methemoglobin 1.1 % (0.4-1.5); Oxygen Device NC; Oxygen Saturation ABG 70.4; PO2 ABG 45.1 mmHg (80.0-100.0); Potassium Level - ABG 3.5 mmol/L (3.5-5.0); Total Hemoglobin 11.1 g/dL (14-18)
[2022-09-12 16:00] LABS: Basophils % 0.4 %; Eosinophils % 0.2 %; Hematocrit 38.1 % (42.0-52.0); Hemoglobin 12.6 g/dL (11.7-16.6); Lymphocytes # 0.7 10^3/uL (0.8-4.8); Mean Corpuscular HGB Conc 33.1 g/dL (30.0-36.0); Mean Corpuscular Hemoglobin 31.7 pg (28.0-34.0); Mean Corpuscular Volume 95.7 fl (80-94); Mean Platelet Volume 11.8 fL (7.4-10.4); Monocytes # 0.3 10^3/uL (0.2-0.9); Monocytes % 5.4 %; Neutrophils # 4.34 10^3/uL (1.8-7.7); Neutrophils % 80.4 %; Nucleated Red Blood Cells % 0 %; Platelet Count 187 10^3/cmm (130-400); Red Blood Count 3.98 10^6/uL (4.1-5.3); Red Cell Distribution Width 19.3 % (12.1-15.1); White Blood Count 5.4 10^3/uL (4.0-10.0)
[2022-09-12 16:04] LABS: INR 1.05 (0.8-1.2)
[2022-09-12 16:05] LABS: Partial Thromboplastin Time 43.4 SECONDS (23.9-36.7)
[2022-09-12 16:16] LABS: Ammonia 58 umol/L (16-60)
[2022-09-12 16:19] LABS: Alanine Aminotransferase 82 U/L (0-41); Albumin Level 2.7 g/dL (3.5-5.2); Alkaline Phosphatase 234 U/L (40-130); Anion Gap 25.9 (5-19); Aspartate Amino Transferase 31 U/L (0-40); Blood Urea Nitrogen 35 mg/dL (8-23); Calcium 7.1 mg/dL (8.5-10.5); Carbon Dioxide 17 mmol/L (22-29); Chloride 90 mmol/L (98-107); Creatine Phosphokinase 46 U/L (39-308); Globulin 2.3 g/dL (1.3-4.6); Glomerular Filtration Rate 25.3 mL/min (90-130); Glucose 150 mg/dL (65-115); Osmolality Calculated 279 mOsm/kg (285-295); Potassium 3.9 mmol/L (3.5-5.1); Sodium 129 mmol/L (136-145)
[2022-09-12 16:20] LABS: Troponin(5th) Baseline 32 ng/L (0-15)
[2022-09-12 16:51] LABS: Reflex Lactate Order REFLEX LACTIC ORDERD
[2022-09-12] MEDS: pantoprazole 40 mg SDV 80 MG IVP (17:03)
[2022-09-12 17:08] LABS: Blood Urine Neg (Negative); Glucose Urine UA Norm (Normal); Ketones Urine Negative (Negative); Protein Urine Trace (Negative); Urine Appearance Hazy (CLEAR); Urine Color Dark Yellow (Yellow); pH Urine 5 (5-7)
[2022-09-12 17:09] LABS: Add Urine Microscopic? YES; Bilirubin Urine 2+ (Negative); Leukocyte Esterase Urine 2+ (Negative); Nitrate Urine Negative (Negative); Urobilinogen Urine 1 mg/dL (Negative)
[2022-09-12 17:12] LABS: WBC Urine 55-80 /hpf (0-5)
[2022-09-12 17:13] LABS: Add Urine Culture? Yes; Bacteria Urine 1+ /hpf; Mucus Urine 1+ /hpf; Squamous Epithelial Cell Urine 0-4 /hpf (0-5)
[2022-09-12] MEDS: levofloxacin-dextrose 5 % 750 MG/150 ML PREMIX 100 MG IV (17:44)
--- NOTE | 2022-09-12 17:45 | ECG_ITS ---
[facility] Test Date: 2022-09-12 Pat Name: Jeremie Alexander Department: Room: Gender: Male [employer]: : 1960 Requested By: Gilberto Mireles Order Number: [id number] Lucinda MD: Joyce Gonzalez M.D. Measurements Intervals [place] Rate: 93 P: 247 AK: 157 QRS: 2 QRSD: 97 T: 6 QT: 377 QTc: 469 Interpretive Statements ELECTRONIC ATRIAL PACEMAKER LOW QRS VOLTAGE IN PRECORDIAL LEADS [QRS DEFLECTION < 1.0 mV IN CHEST LEADS] NONSPECIFIC T-WAVE ABNORMALITY Compared to ECG 09/12/2022 15:38:08 Low QRS voltage now present T-wave abnormality now present Sinus rhythm no longer present Electronically Signed On 09-12-2022 18:26:21 [employer] by Joyce Gonzalez M.D. [id number]
[2022-09-12] MEDS: fentaNYL 50 mcg/mL INJ 2mL IVP (18:02)
[2022-09-12 18:05] LABS: Troponin 5 2HR 24.42 ng/L (0-15)
--- NOTE | 2022-09-12 18:09 | XRR_ITS ---
PROCEDURE INFORMATION: Exam: XR Right Shoulder Exam date and time: 09/12/2022 6:16 PM Age: 61 years old Clinical indication: Pain; Shoulder; Right; Additional info: Abnormal finding on cxr TECHNIQUE: Imaging protocol: Radiologic exam of the Right shoulder. Views: 2 or more views. COMPARISON: CR (CHEST, ) 05/10/2022 2:21 PM FINDINGS: Bones/joints: Chronic displaced comminuted fractures of the proximal humerus. These were acute in appearance on the prior radiographs dated 05/10/2022. There appears to be some adjacent callus formation a possible osseous bridging currently. Glenoid is not well seen. There are degenerative changes across the acromioclavicular joint including inferior osteophyte formations. Soft tissues: Normal. XR/XR shoulder RT min 2V* [id number] IMPRESSION: There are chronic displaced fractures of the proximal humerus with interval callus formation and possible osseous bridging. These fractures were acute on the prior radiographs.
--- NOTE | 2022-09-12 18:17 | PM.CONSULT ---
Providers/Reason For Consult Consulting Physician/Specialty*: Emergency room physician Reason for Consult*: Bowel obstruction Primary Care Provider: DARSHANA Gallo History of Present Illness History of Present Illness Jeremie Alexander is a 61 year old male with a 3-day history of abdominal pain, nausea and vomiting. The abdominal pain has gotten worse. The patient's last normal bowel movement was 4 days ago. Nothing the patient can do to make the pain better or worse. Most of the history is obtained from the patient's . It appears the patient fell a couple weeks ago and has a humeral fracture. The patient also fell recently. The patient has multiple medical problems including atrial fibrillation. The patient is on Eliquis for this. The patient has not taken his Eliquis in the last several days. Review of Systems General: Reports: 10 or more systems reviewed and unremarkable except in HPI and below Medications/Allergies Home Medications Medication Instructions Recorded Confirmed Last Taken Type tamsulosin 0.4 mg capsule 0.4 mg PO QAM 11/23/20 08/31/22 1 Day Ago History ~05/28/22 metoprolol succinate 25 mg 25 mg PO BID 03/19/22 08/31/22 05/29/22 History tablet,extended release 24 hr lisinopril 40 mg tablet 40 mg PO QAM 03/27/22 08/31/22 05/29/22 History potassium gluconate 595 mg (99 mg) 595 mg PO QAM 03/27/22 08/31/22 2 Days Ago History tablet ~05/27/22 apixaban 5 mg tablet (Eliquis) 5 mg PO BID #60 tabs 03/31/22 08/31/22 05/29/22 Rx furosemide 40 mg tablet (Lasix) 40 mg PO QAM #30 tabs 03/31/22 08/31/22 05/29/22 Rx melatonin 5 mg capsule 5 mg PO BEDTIME #30 caps 03/31/22 08/31/22 Unknown Rx prbjiauh-nnr-wdvkl acid 300 1 tab PO DAILY 03/31/22 08/31/22 05/29/22 History mcg-lycopene 600 mcg-lutein 300 mcg tablet (Centrum Silver Men) loperamide 2 mg capsule (Imodium 2 mg PO QID PRN loose stool #14 04/23/22 08/31/22 Unknown Rx A-D) caps omeprazole 20 mg capsule,delayed 20 mg PO BID 30 days #60 caps 04/23/22 08/31/22 Unknown Rx release CUFF AND COLLAR SLING #1 ea 05/07/22 08/31/22 Unknown Rx dicyclomine 20 mg tablet 20 mg PO TID #90 tabs 05/18/22 08/31/22 Unknown Rx methocarbamol 500 mg tablet 500 mg PO TID PRN muscle spasm, 05/19/22 08/31/22 Unknown Rx pain 7 days #21 tabs rosuvastatin 20 mg tablet 20 mg PO BEDTIME #30 tabs 05/19/22 08/31/22 2 Weeks Ago Rx ~05/15/22 acetaminophen 500 mg tablet 500 mg PO Q6H PRN 07/23/22 08/31/22 Unknown History (Tylenol Extra Strength) sertraline 50 mg tablet (Zoloft) 50 mg PO QAM #30 tabs 08/26/22 08/31/22 Unknown Rx tizanidine 4 mg tablet 4 mg PO BID PRN muscle spasticity 08/31/22 08/31/22 Unknown Rx #60 tabs hydroxyzine pamoate 25 mg capsule 25 mg PO BEDTIME PRN sleep 09/12/22 09/12/22 Unknown History ondansetron 8 mg disintegrating 8 mg PO Q8H PRN Nausea 09/12/22 09/12/22 Unknown History tablet quetiapine 200 mg tablet (Seroquel) 200 mg PO BEDTIME 09/12/22 09/12/22 09/11/22 History Allergies Allergy/AdvReac Type Severity Reaction Status Date / Time ticagrelor [From Brilinta] Allergy Unknown ALGY-Hives Verified 09/12/22 16:03 trazodone Allergy Unknown ADR-Nightma Verified 09/12/22 16:03 re Current Medications Generic Name Dose Route Start Last Admin Trade Name Freq PRN Reason Stop Dose Admin Norepinephrine Bitartrate 4 mg 254 mls @ 0 mls/hr 09/12/22 16:00 09/12/22 16:00 / Dextrose IV 4 mcg/min .Q0M SAVANAH 15.24 mls/hr Administration Protocol Per Protocol PFSH Acute PFSH: Medical History Acute ischemic stroke Afib Anxiety and depression Atrial fibrillation Atrial fibrillation, chronic Back pain CAD (coronary artery disease) Chest pain Chest pain Chronic anticoagulation Chronic thoracic back pain Compression fracture Diabetes Displaced fracture of proximal end of humerus Flu-like symptoms Focal sensory loss History of posttraumatic stress disorder (PTSD) HTN (hypertension) Humerus fracture Hypertensive urgency Intractable pain Lacunar infarction Major depressive disorder, 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, 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 Pacemaker Pneumonia Post-traumatic stress disorder, chronic Psychiatric care SSS (sick sinus syndrome) Suicidal thoughts Syncope Tachycardia Transaminitis Traumatic compression fracture of T12 thoracic vertebra Traumatic compression fracture of thoracic vertebra Surgical History Gastric banding status S/P kyphoplasty S/P placement of cardiac pacemaker Status post cholecystectomy Family History Father CAD (coronary artery disease) Mother Cancer Social History Smoking and tobacco status: former smoker (quit 15 years ago) Second hand smoke exposure: No Alcohol intake: never Household members: spouse Housing: House History of recent travel: No Vitals/I&O/Wt Last Vital Signs Temp 96.4 F L 09/12/22 16:01 Pulse 96 09/12/22 17:40 Resp 14 09/12/22 17:40 BP 124/62 09/12/22 17:40 Pulse Ox 97 09/12/22 17:40 O2 Del Method 09/12/22 16:01 O2 Flow Rate 2 09/12/22 16:01 09/12/22 09/12/22 09/12/22 06:59 14:59 22:59 Intake Total 3000 / 3000 Balance 3000 / 3000 Weight last 48 hrs Weight 200 lb Weight 220 lb Physical Exam Narrative: Generally: An ill-appearing male. The patient has nasal cannula oxygen. HEENT is normocephalic atraumatic Lungs: Clear to auscultation Heart: Regular rate and rhythm Abdomen: Somewhat distended, the patient has mild diffuse tenderness. The patient has no bowel sounds. I do not appreciate any rushes or tinkles. Extremities: The patient has discoloration in both his upper arms. The patient has somewhat weak radial and dorsalis pedis pulses. Neurologic: The patient is awake, alert, oriented x3. The patient's [place] Coma Scale is 15. The patient moves all 4 extremities without difficulty. The patient sensations intact to light touch throughout. Urinary Catheter Management: Nuñez: Cath Placed During This Visit: yes Urinary Catheter Date of Insertion: 09/12/22 Urinary Catheter Time of Insertion: 16:26 Data 09/12/22 15:43 09/12/22 15:43 Micro: Microbiology 09/12/22 17:22 Blood Culture - Preliminary Blood SPECIMEN COLLECTED 09/12/22 17:13 Blood Culture - Preliminary Blood SPECIMEN COLLECTED A&P Assessment and plan (1) Lactic acid acidosis: The patient is hypovolemic. We will bolus the patient with crystalloid. (2) Small bowel obstruction: We will plan on taken the patient to the operating room for operative intervention tonight. We will give the patient Kcentra prior to the operating room. (The patient was on Eliquis) Appreciate the hospitalist for their help in taking care of this critically ill gentleman. Coding Level of Care Code Acute Code for Chg Fwd Diagnoses Lactic acid acidosis E87.20 Small bowel obstruction K56.609
--- NOTE | 2022-09-12 18:22 | P.HP_ITS ---
Providers/Chief Complaint Primary Care Provider: DARSHANA Gallo Chief Complaint: AMS; HYPOTENSION History of Present Illness Jeremie Alexander is a 61 year old male with a past medical history of CAD status post stenting x10, noninsulin-dependent type 2 diabetes mellitus, hypertension, status post ICD placement, history of ventricular tachycardia, history of sick sinus syndrome, depression, atrial fibrillation was on Eliquis and has been out of supply has not taken in the last 2 months, CVA 03/2022, was brought in today with chief complaint of abdominal pain nausea vomiting started 3 days back and since then it has progressively worsened, patient states that he was having hematemesis also Yesterday states a lot. CT abdomen and pelvis done: has Shown ?distal small-bowel obstruction. Pertinent labs: WBC 5.4 H&H 12.6/ 38 , PLT : 187 , serum sodium 129 serum potassium 3.9, serum bicarb 17, BUN 35 serum creatinine 2.6 Anion gap 25, lactic acid 7, Urinalysis suggestive of possible UTI Patient was found to be severely hypotensive in the ER, he was given IV fluid bolus, was started on Levophed. Review of Systems General: Reports: 10 or more systems reviewed and unremarkable except in HPI and below Const: Denies: fever(s), chills, body aches, change in appetite or diaphoresis Card: Denies: palpitations, edema, swelling of feet/ankles, dyspnea on exertion, orthopnea or leg pain with exertion Resp: Denies: dyspnea, productive cough, wheezing or pain on inspiration GI: Denies: abdominal pain, nausea, vomiting, diarrhea or constipation : Denies: flank pain or difficulty urinating Musc: Denies: back pain, extremity pain or extremity swelling Neuro: Denies: headache(s), difficulty walking or confusion Medications/Allergies Home Medications Medication Instructions Recorded Confirmed Last Taken Type tamsulosin 0.4 mg capsule 0.4 mg PO QAM 11/23/20 08/31/22 1 Day Ago History ~05/28/22 metoprolol succinate 25 mg 25 mg PO BID 03/19/22 08/31/22 05/29/22 History tablet,extended release 24 hr lisinopril 40 mg tablet 40 mg PO QAM 03/27/22 08/31/22 05/29/22 History potassium gluconate 595 mg (99 mg) 595 mg PO QAM 03/27/22 08/31/22 2 Days Ago History tablet ~05/27/22 apixaban 5 mg tablet (Eliquis) 5 mg PO BID #60 tabs 03/31/22 08/31/22 05/29/22 Rx furosemide 40 mg tablet (Lasix) 40 mg PO QAM #30 tabs 03/31/22 08/31/22 05/29/22 Rx melatonin 5 mg capsule 5 mg PO BEDTIME #30 caps 03/31/22 08/31/22 Unknown Rx cwhkwjhi-nbp-jmnmy acid 300 1 tab PO DAILY 03/31/22 08/31/22 05/29/22 History mcg-lycopene 600 mcg-lutein 300 mcg tablet (Centrum Silver Men) loperamide 2 mg capsule (Imodium 2 mg PO QID PRN loose stool #14 04/23/22 08/31/22 Unknown Rx A-D) caps omeprazole 20 mg capsule,delayed 20 mg PO BID 30 days #60 caps 04/23/22 08/31/22 Unknown Rx release CUFF AND COLLAR SLING #1 ea 05/07/22 08/31/22 Unknown Rx dicyclomine 20 mg tablet 20 mg PO TID #90 tabs 05/18/22 08/31/22 Unknown Rx methocarbamol 500 mg tablet 500 mg PO TID PRN muscle spasm, 05/19/22 08/31/22 Unknown Rx pain 7 days #21 tabs rosuvastatin 20 mg tablet 20 mg PO BEDTIME #30 tabs 05/19/22 08/31/22 2 Weeks Ago Rx ~05/15/22 acetaminophen 500 mg tablet 500 mg PO Q6H PRN 07/23/22 08/31/22 Unknown History (Tylenol Extra Strength) sertraline 50 mg tablet (Zoloft) 50 mg PO QAM #30 tabs 08/26/22 08/31/22 Unknown Rx tizanidine 4 mg tablet 4 mg PO BID PRN muscle spasticity 08/31/22 08/31/22 Unknown Rx #60 tabs hydroxyzine pamoate 25 mg capsule 25 mg PO BEDTIME PRN sleep 09/12/22 09/12/22 Unknown History ondansetron 8 mg disintegrating 8 mg PO Q8H PRN Nausea 09/12/22 09/12/22 Unknown History tablet quetiapine 200 mg tablet (Seroquel) 200 mg PO BEDTIME 09/12/22 09/12/22 09/11/22 History Allergies Allergy/AdvReac Type Severity Reaction Status Date / Time ticagrelor [From Brilinta] Allergy Unknown ALGY-Hives Verified 09/12/22 16:03 trazodone Allergy Unknown ADR-Nightma Verified 09/12/22 16:03 re PFSH Acute PFSH: Medical History (Updated 09/12/22 @ 18:30 by Eder Manzano MD) Acute ischemic stroke Afib Anxiety and depression Atrial fibrillation Atrial fibrillation, chronic Back pain CAD (coronary artery disease) Chest pain Chest pain Chronic anticoagulation Chronic thoracic back pain Compression fracture Diabetes Displaced fracture of proximal end of humerus Flu-like symptoms Focal sensory loss History of posttraumatic stress disorder (PTSD) HTN (hypertension) Humerus fracture Hypertensive urgency Intractable pain Lacunar infarction Major depressive disorder, 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, 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 Pacemaker Pneumonia Post-traumatic stress disorder, chronic Psychiatric care SSS (sick sinus syndrome) Suicidal thoughts Syncope Tachycardia Transaminitis Traumatic compression fracture of T12 thoracic vertebra Traumatic compression fracture of thoracic vertebra Surgical History Gastric banding status S/P kyphoplasty S/P placement of cardiac pacemaker Status post cholecystectomy Family History Father CAD (coronary artery disease) Mother Cancer Social History Smoking and tobacco status: former smoker (quit 15 years ago) Second hand smoke exposure: No Alcohol intake: never Household members: spouse Housing: House History of recent travel: No Vitals/I&O/Wt Last Vital Signs Temp 96.4 F L 09/12/22 16:01 Pulse 96 09/12/22 17:40 Resp 14 09/12/22 17:40 BP 124/62 09/12/22 17:40 Pulse Ox 97 09/12/22 17:40 O2 Del Method 09/12/22 16:01 O2 Flow Rate 2 09/12/22 16:01 09/12/22 09/12/22 09/12/22 06:59 14:59 22:59 Intake Total 3035.306 / 3035.306 Balance 3035.306 / 3035.306 Weight last 48 hrs Weight 90.718 kg Weight 99.79 kg Physical Exam Const: COMMON NORMALS: patient oriented x3 HENMT: COMMON NORMALS: normocephalic and atraumatic HEAD & SCALP: normocephalic and atraumatic Resp: COMMON NORMALS: normal respiratory effort, No retractions, No use of accessory muscles and clear to auscultation bilaterally EFFORT & INSPECTION: Yes symmetric chest movement AUSCULTATION: clear to auscultation bilaterally Cardio: COMMON NORMALS: Peripheral pulses 2+ throughout PERIPHERAL PULSES: Peripheral pulses 2+ throughout GI: AUSCULTATION: Yes normoactive bowel sounds PALPATION: Yes Soft to palpation and Yes No hepatosplenomegaly present RECTAL EXAM: Yes deferred Extremity: COMMON NORMALS: no clubbing, cyanosis or edema and no pedal edema Neuro: COMMON NORMALS: patient oriented x3 Urinary Catheter Management: Nuñez: Cath Placed During This Visit: yes Urinary Catheter Date of Insertion: 09/12/22 Urinary Catheter Time of Insertion: 16:26 Data 09/12/22 15:43 09/12/22 15:43 Micro: Microbiology 09/12/22 17:22 Blood Culture - Preliminary Blood SPECIMEN COLLECTED 09/12/22 17:13 Blood Culture - Preliminary Blood SPECIMEN COLLECTED A&P Assessment and plan (1) Small bowel obstruction: (2) CAD (coronary artery disease): (3) Hyponatremia: (4) Metabolic acidosis: (5) Lactic acid acidosis: (6) Hypotension: (7) Acute kidney injury superimposed on CKD: (8) Atrial fibrillation: (9) UTI (urinary tract infection): Plan 61 year old male with a past medical history of CAD status post stenting x10, noninsulin-dependent type 2 diabetes mellitus, hypertension, status post ICD placement, history of ventricular tachycardia, history of sick sinus syndrome, depression, atrial fibrillation was on Eliquis and has been out of supply has not taken in the last 2 months, CVA 03/2022, was brought in today with chief complaint of abdominal pain nausea vomiting started 3 days back and since then it has progressively worsened, patient states that he was having hematemesis also Yesterday states a lot. Assessment: Small bowel obstruction: Appreciate CT abdomen and pelvis finding Currently n.p.o. Surgery on board Pain control Antiemetics Shock: Likely hypovolemic: Patient has received IV fluid boluses, and is currently on Levophed. Follow-up blood culture, urine culture. Continue IV hydration, monitor H&H. Empirically started on Zosyn to cover for any possible GI infection. Increased anion gap metabolic acidosis: Likely secondary to lactic acidosis: DEMETRIS Follow repeat lactic acid. Monitor ABG Plan as above Hypovolemic hyponatremia: Admission serum sodium is 129 Currently patient is being volume resuscitated, monitor Serum sodium every 4 hours. TSH Random urine sodium Urine osmolality Serum osmolality Random cortisol Likely prerenal DEMETRIS on CKD : Monitor for possible acute renal failure Baseline serum creatinine is around 0.6-1 Admission serum creatinine is: 2.6 Monitor BMP Avoid nephrotoxic's FENA UPCR Random urine sodium Random urine creatinine Random urine total protein Possible renal ultrasound Monitor intake output charting Nuñez catheter in place History of coronary artery disease status post stent: History of diabetes: Currently n.p.o. LDSSI, monitor fingerstick glucose CODE STATUS: Full code DVT prophylaxis on SCD Attestations Medical Necessity Statement*: Patient is to be in hospital management of small bowel obstruction.Anticipated length of stay greater than 2 midnights Time Spent in Patient Care: Greater than 35 minutes (>than 50% of time spent in counselling and/or direct pt care on unit) . Coding Level of Care Code Acute Code for Chg Fwd Exam Detailed Diagnoses Small bowel obstruction K56.609 CAD (coronary artery disease) I25.10 Hyponatremia E87.1 Metabolic acidosis E87.20 Lactic acid acidosis E87.20 Hypotension I95.9 Acute kidney injury superimposed on CKD N17.9; N18.9 Atrial fibrillation I48.91 UTI (urinary tract infection) N39.0
--- NOTE | 2022-09-12 19:24 | ANES.PREANE2 ---
Pre-Anesthetic Assessment Height/Weight: Height 1.6 m Weight 90.718 kg Temp Pulse Resp BP Pulse Ox O2 Del Method O2 Flow Rate 97.1 F L 90 17 107/69 98 2 09/12/22 18:55 09/12/22 18:55 09/12/22 18:55 09/12/22 18:55 09/12/22 18:55 09/12/22 18:55 09/12/22 18:55 Preop Diagnosis: Unstable angina/ Ventricular tachycardia, compression fracture T11 and T12 Operation Date: 09/12/22 19:00 Proposed Procedures p Exploratory Laparotomy(Not Applicable) - Shena Saucedo MD Familial anesthetic complications: none Was Beta Rashida taken within 24 hours: N/A (unable to take b/c of n/v) Was Clonidine taken within 24 hours: N/A Social No alcohol and No tobacco (h/o smoking) Exam alert and oriented x 3 tachy and hypotensive on norepi gtt Airway Submandibular: within normal limits Cervical ROM: within normal limits Mallampati: Class III Dentition: false (upper) Comments: Comments: poor dentition on lower arch Pulmonary Chronic Obstructive Pulmonary Disease and Sleep Apnea CV/HEM Anemia, Coronary Artery Disease (stents), Hypertension and Myocardial Infarction pacemaker DEMETRIS GI Gastroesophageal Reflux Disease Metabolic Morbid Obesity Musc/skel Lower Back Pain and Osteoarthritis/DJD right humeral frx Neuropsych Anxiety and Depression Anesthetic Plan ASA status: 4E Anesthesia: General (RSI) Other: A.line, CVL, ICU intubated Medications/Allergies Home Medications Medication Instructions Recorded Confirmed Last Taken Type tamsulosin 0.4 mg capsule 0.4 mg PO QAM 11/23/20 09/12/22 09/11/22 History metoprolol succinate 25 mg 25 mg PO BID 03/19/22 09/12/22 09/11/22 History tablet,extended release 24 hr lisinopril 40 mg tablet 40 mg PO QAM 03/27/22 09/12/22 09/11/22 History potassium gluconate 595 mg (99 mg) 595 mg PO QAM 03/27/22 09/12/22 09/11/22 History tablet apixaban 5 mg tablet (Eliquis) 5 mg PO BID #60 tabs 03/31/22 09/12/22 09/11/22 Rx furosemide 40 mg tablet (Lasix) 40 mg PO QAM #30 tabs 03/31/22 09/12/22 09/05/22 Rx melatonin 5 mg capsule 5 mg PO BEDTIME #30 caps 03/31/22 09/12/22 09/11/22 Rx zyzhjdnk-waq-lxpeq acid 300 1 tab PO DAILY 03/31/22 09/12/22 09/11/22 History mcg-lycopene 600 mcg-lutein 300 mcg tablet (Centrum Silver Men) loperamide 2 mg capsule (Imodium 2 mg PO QID PRN loose stool #14 04/23/22 09/12/22 Unknown Rx A-D) caps omeprazole 20 mg capsule,delayed 20 mg PO BID 30 days #60 caps 04/23/22 09/12/22 09/11/22 Rx release CUFF AND COLLAR SLING #1 ea 05/07/22 09/12/22 Unknown Rx dicyclomine 20 mg tablet 20 mg PO TID #90 tabs 05/18/22 09/12/22 Unknown Rx methocarbamol 500 mg tablet 500 mg PO TID PRN muscle spasm, 05/19/22 09/12/22 Unknown Rx pain 7 days #21 tabs rosuvastatin 20 mg tablet 20 mg PO BEDTIME #30 tabs 05/19/22 09/12/22 09/11/22 Rx acetaminophen 500 mg tablet 500 mg PO Q6H PRN Pain 07/23/22 09/12/22 Unknown History (Tylenol Extra Strength) sertraline 50 mg tablet (Zoloft) 50 mg PO QAM #30 tabs 08/26/22 09/12/22 09/11/22 Rx tizanidine 4 mg tablet 4 mg PO BID PRN muscle spasticity 08/31/22 09/12/22 Unknown Rx #60 tabs hydroxyzine pamoate 25 mg capsule 25 mg PO BEDTIME PRN sleep 09/12/22 09/12/22 Unknown History ondansetron 8 mg disintegrating 8 mg PO Q8H PRN Nausea 09/12/22 09/12/22 Unknown History tablet quetiapine 200 mg tablet (Seroquel) 200 mg PO BEDTIME 09/12/22 09/12/22 09/11/22 History Allergies Allergy/AdvReac Type Severity Reaction Status Date / Time ticagrelor [From Brilinta] Allergy Unknown ALGY-Hives Verified 09/12/22 16:03 trazodone Allergy Unknown ADR-Nightma Verified 09/12/22 16:03 re Current Medications Generic Name Dose Route Start Last Admin Trade Name Aura PRN Reason Stop Dose Admin Norepinephrine Bitartrate 4 mg 254 mls @ 0 mls/hr 09/12/22 16:00 09/12/22 18:31 / Dextrose IV 4 mcg/min .Q0M SAVANAH 15.24 mls/hr Titration Protocol Per Protocol [facility] Anesthesia Medical History (Updated 09/12/22 @ 18:30 by Eder Manzano MD) Acute ischemic stroke Afib Anxiety and depression Atrial fibrillation Atrial fibrillation, chronic Back pain CAD (coronary artery disease) Chest pain Chest pain Chronic anticoagulation Chronic thoracic back pain Compression fracture Diabetes Displaced fracture of proximal end of humerus Flu-like symptoms Focal sensory loss History of posttraumatic stress disorder (PTSD) HTN (hypertension) Humerus fracture Hypertensive urgency Intractable pain Lacunar infarction Major depressive disorder, 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, 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 Pacemaker Pneumonia Post-traumatic stress disorder, chronic Psychiatric care SSS (sick sinus syndrome) Suicidal thoughts Syncope Tachycardia Transaminitis Traumatic compression fracture of T12 thoracic vertebra Traumatic compression fracture of thoracic vertebra Surgical History Gastric banding status S/P kyphoplasty S/P placement of cardiac pacemaker Status post cholecystectomy Family History Father CAD (coronary artery disease) Mother Cancer Social History Smoking and tobacco status: former smoker (quit 15 years ago) Second hand smoke exposure: No Alcohol intake: never Household members: spouse Housing: House History of recent travel: No Data Anesthesia 09/12/22 15:43 09/12/22 15:43 Short CBC 09/12/22 Range/Units 15:43 WBC 5.4 (4.0-10.0) 10^3/uL Hgb 12.6 (11.7-16.6) g/dL Hct 38.1 L (42.0-52.0) % MCV 95.7 H (80-94) fl Plt Count 187 (130-400) 10^3/cmm Neut % (Auto) 80.4 % Neut # (Auto) 4.34 (1.8-7.7) 10^3/uL BMP 09/12/22 15:43 Sodium 129 L Potassium 3.9 Chloride 90 L Carbon Dioxide 17 L BUN 35 H Creatinine 2.6 H Glucose 150 H Calcium 7.1 L Cardiac Enzymes 09/12/22 09/12/22 09/12/22 Range/Units 15:43 15:43 17:30 Creatine Kinase 46 (39-308) U/L Troponin T Baseline 32 H (0-15) ng/L Troponin T 120 Minute 24.42 H (0-15) ng/L Delta Troponin T -7.58 L (0-10) ABS# Liver Function 09/12/22 Range/Units 15:43 Total Bilirubin 1.0 (0.15-1.2) mg/dL AST 31 (0-40) U/L ALT 82 H (0-41) U/L Alkaline Phosphatase 234 H (40-130) U/L Albumin 2.7 L (3.5-5.2) g/dL Urine 09/12/22 Range/Units 16:20 Urine Color Dark yellow (Yellow) Urine Appearance Hazy A (CLEAR) Urine pH 5 (5-7) Ur Specific Atkins 1.020 (1.005-1.030) Urine Protein Trace (Negative) Urine Glucose (UA) Norm (Normal) Urine Ketones Negative (Negative) Urine Nitrate Negative (Negative) Urine Bilirubin 2+ H (Negative) Ur Leukocyte Esterase 2+ H (Negative) Urine RBC None (0-2) /hpf Urine WBC 55-80 H (0-5) /hpf Blood Bank 09/12/22 15:50 Blood Type O Positive Rho(D) Type Positive Antibody Screen Negative Coags 09/12/22 15:43 PT 14.00 INR 1.05 APTT 43.4 H ABG 09/12/22 15:49 Specimen Type Arterial Sample Site Radial, left ABG pH 7.26 L ABG pCO2 42.0 ABG pO2 45.1 L ABG HCO3 18.7 L ABG O2 Saturation 70.4 ABG Base Excess -8.0 L A-a O2 Gradient 13.6 H O2 Delivery Device Nc O2 Liters/Min 2.0 FiO2 28.0 Microbiology 09/12/22 17:22 Blood Culture - Preliminary Blood SPECIMEN COLLECTED 09/12/22 17:13 Blood Culture - Preliminary Blood SPECIMEN COLLECTED Cardiac Studies: Echocardiogram 03/24/22 Echocardiogram Ultrasound 11/24/20 Sestamibi Stress Test (Cardiology) 03/15/22
[2022-09-12] MEDS: piperacillin-tazobactam 3.375 GM in sodium chloride 0.9% (plus) 50 ML IV (20:17)
--- NOTE | 2022-09-12 21:34 | P.OP_ITS ---
Operative Report Date of procedure: September 12, 2022 Pre-op diagnosis: Bowel obstruction Post-op diagnosis: Ileus Procedure done: Exploratory laparotomy Pathology: none sent Surgeon: Shena Saucedo Anesthesia: General Estimated blood loss: 50 cc IV fluids: Please see anesthesia record Complications: No complications noted Findings: The patient's small bowel was dilated. No specific obstruction was seen. Condition: critical Disposition: PACU Brief History: This is a 61-year-old male who presents with a 3 to 4-day history of abdominal pain, nausea and vomiting. The patient presented to the emergency room si gnificantly dehydrated. The patient had a significant lactic Acidosis. CT scan was suggestive of a distal small bowel obstruction. The risk and benefits of exploratory laparotomy were explained to the patient and the patient's . They seem to understand the risk and benefits and wanted to proceed. Procedure: Procedure in detail: The patient was brought to the operating room placed in the supine position. After adequate general endotracheal anesthesia, the patient's abdomen was prepped and draped in usual sterile fashion. Following this a timeout was performed. The patient identifiers as well as the goals of procedure discussed. Everyone in the room agreed. Midline incision was made from about 10 cm above his umbilicus to the symphysis pubis. This was done with a skin knife. The Bovie cautery was used to carry this incision down to and through the fascia. Once I was through the fascia the peritoneum was picked up with DeBakey pickups and Metzenbaum scissors were used to incise the peritoneum. Now a finger was placed in the abdomen in order to protect the end abdominal contents and the Bovie cautery was used to open the peritoneum throughout the length of the incision. The small bowel was run from the ligament of Treitz to the ileocecal valve. Although the small bowel was significantly dilated. It was dilated throughout the whole length of the small bowel. There was no evidence of ischemia. There is no evidence of obstruction. There were no masses that I can appreciate. The colon was run from the cecum to the peritoneal reflection. Again I did not feel any masses. There is no evidence of obstruction. Because of dense adhesions, the patient's stomach was not fully inspected. It is my understanding the patient did have some sort of weight loss surgery on his stomach. Exactly what the surgery entailed is unclear. I did not appreciate a Jesse-en-Y limb. It should be mentioned that what appeared to be mesh would have been which has been tacked up with percy. I did have to go through the mesh. The small bowel again was run from the ligament of Treitz to the ileocecal valve. Again there were no masses that I can appreciate. The patient really had minimal adhesions in his abdomen. The patient really did not have any evidence of adhesive bowel disease. The abdomen was now irrigated with copious rolanda normal saline. The saline was suctioned out of the abdomen. #1 looped PDS was used to reapproximate the fascia. The wound was again irrigated with copious amounts of normal saline percy used to close the skin. A sterile dressing was applied. The patient was awakened and taken to recovery room in stable condition. I try to get a hold of the patient's , Laura Alexander at [phone]. There was no answer.
--- NOTE | 2022-09-12 21:50 | PC.NURSE ---
Pt arrived from Surgery via hospital bed, on continuos monitoring @2150. Continuos cardiac monitoring continued. Pt is intubated, L. Radial Art Line in place (connected to continuos monitoring), L. IJ central line in place. Chest XR obtained to confirm placement (see Reports). NG tube clamped per physician. Communication w/ Dr. Ruano to obtain sedation and fluid orders (see MAR). Medial Abd. surgical incision dressing is clean and dry.
[2022-09-12 22:07] LABS: ABG PH Result 7.27 (7.35-7.45); Arterial Blood Gas Hematocrit 36.2 % (42-52); Base Excess ABG -8.1 mmol/L (-2.0-2.0); Blood Gas Allen Test Pos; Blood Gas Sample Site Radial, right; Blood Gas Sample Type Arterial; HCO3 ABG 18.3 mmol/L (22-26); Oxygen Device VENT; PO2 ABG 88.6 mmHg (80.0-100.0)
[2022-09-12] MEDS: propofol 1,000 MG/100 ML INJ 2.72 MG IV (22:31)
--- NOTE | 2022-09-12 22:37 | XRR_ITS ---
PROCEDURE INFORMATION: Exam: XR Abdomen Exam date and time: 09/12/2022 10:59 PM Age: 61 years old Clinical indication: Device placement; Gi device and non-vascular device and vascular catheter; Nasogastric tube; Other: Ett; Prior surgery; Surgery date: 6+ months; Surgery type: Pacemaker; Additional info: Et, ng, and central line placement TECHNIQUE: Imaging protocol: Radiologic exam of the abdomen. Views: Frontal supine view of the abdomen. 1 View. COMPARISON: CT abdomen pelvis con [id number] 09/12/2022 5:29 PM FINDINGS: Tubes, catheters and devices: Endotracheal tube tip in place 2 cm above the my. Enteric tube tip below the diaphragm over the gastric bubble. Pacemaker. Right central venous catheter with tip just distal to the atrial caval junction. Lungs: Patchy bilateral hilar mixed interstitial and airspace infiltrates. Gastrointestinal tract: Normal. No bowel dilation. Bones/joints: Unremarkable. XR/XR KUB portable [id number] IMPRESSION: 1. Endotracheal tube tip in place 2 cm above the my. 2. Enteric tube tip below the diaphragm over the gastric bubble. 3. Pacemaker. 4. Right central venous catheter with tip just distal to the atrial caval junction. 5. Patchy bilateral hilar mixed interstitial and airspace infiltrates.
[2022-09-12] MEDS: sodium chloride 0.9% 1,000 ML 100 ML IV (22:52)
[2022-09-12] MEDS: pantoprazole 40 mg SDV IVP (22:53)
[2022-09-13] VITALS (102 sets, daily range): BP systolic 74–175; BP diastolic 45–129; PULSE 66–151; RESP 12–25; TEMP 35.9–37.4; O2SAT 94–99
[2022-09-13] LABS: Troponin 5 6HR 35.05 ng/L (0-15)
[2022-09-13 00:01] LABS: Troponin 5 6HR Delta 3.05 ng/L (0-12)
[2022-09-13 00:03] LABS: Lactic Acid level (Lactate) 1.9 mmol/L (0.5-2.2)
[2022-09-13 00:47] LABS: Creatinine Urine, Random 107 mg/dL (39-259)
[2022-09-13 00:58] LABS: Urine Protein Random 45 mg/dL; Urine Random Sodium 10 mmol/L
--- NOTE | 2022-09-13 01:20 | PC.NURSE ---
Updated Dr. Ruano HR 140. New order for an EKG (see Reports). New order for Amio (see MAR).
--- NOTE | 2022-09-13 01:29 | ECG_ITS ---
[facility] Test Date: 2022-09-13 Pat Name: Jeremie Alexander Department: Room: ICU10 Gender: Male Mink Slicer: : 1960 Requested By: Giancarlo Graff Order Number: [id number] Lucinda MD: Jose Ugarte M.D. Measurements Intervals [place] Rate: 142 P: 155 VA: 135 QRS: 191 QRSD: 102 T: 137 QT: 354 QTc: 546 Interpretive Statements ECTOPIC ATRIAL TACHYCARDIA, POSSIBLE ATRIAL FLUTTER POSSIBLE RIGHT VENTRICULAR HYPERTROPHY [SOME/ALL OF: PROMINENT R IN V1, LATE TRANSITION, RAD, KELSEA, SSS] Compared to ECG 09/12/2022 17:57:31 Atrial-paced complex(es) or rhythm no longer present T-wave abnormality no longer present Electronically Signed On 09-15-2022 7:11:42 [employer]ANTING [employer]ERIAL REMOVER by Jose Ugarte M.D. [id number]
[2022-09-13] MEDS: piperacillin-tazobactam 3.375 GM in sodium chloride 0.9% (plus) 50 ML IV ×3 (02:08→17:39)
[2022-09-13 04:01] LABS: ABG PCO2 42.1 mmHg (35-45); ABG PH Result 7.21 (7.35-7.45); Arterial Blood Gas Hematocrit 39.4 % (42-52); Base Excess ABG -10.6 mmol/L (-2.0-2.0); Blood Gas Allen Test Pos; Blood Gas Sample Site Radial, left; Blood Gas Sample Type Arterial; Carboxyhemoglobin < 1.0 %THgb (0.4-20.1); HCO3 ABG 16.8 mmol/L (22-26); HGB O2 Sat 93.5 % (95-100); Ionized Calcium Level - ABG 0.9 mmol/L (1.1-1.4); Methemoglobin 1.3 % (0.4-1.5); Oxygen Device VENT; PO2 ABG 89.5 mmHg (80.0-100.0); Potassium Level - ABG 3.6 mmol/L (3.5-5.0); Total Hemoglobin 12.9 g/dL (14-18)
[2022-09-13 04:06] LABS: Basophils % 0.3 %; Hematocrit 37.3 % (42.0-52.0); Hemoglobin 12.2 g/dL (11.7-16.6); Lymphocytes # 0.6 10^3/uL (0.8-4.8); Lymphocytes % 9.6 %; Mean Corpuscular HGB Conc 32.7 g/dL (30.0-36.0); Mean Corpuscular Hemoglobin 31.3 pg (28.0-34.0); Mean Corpuscular Volume 95.6 fl (80-94); Mean Platelet Volume 10.6 fL (7.4-10.4); Monocytes # 0.4 10^3/uL (0.2-0.9); Monocytes % 6.5 %; Neutrophils # 5.46 10^3/uL (1.8-7.7); Nucleated Red Blood Cells % 0 %; Platelet Count 179 10^3/cmm (130-400); Red Cell Distribution Width 19.5 % (12.1-15.1); White Blood Count 6.6 10^3/uL (4.0-10.0)
[2022-09-13 04:15] LABS: INR 1.15 (0.8-1.2)
[2022-09-13 04:16] LABS: Partial Thromboplastin Time 35.9 SECONDS (23.9-36.7)
--- NOTE | 2022-09-13 04:23 | PC.NURSE ---
Addendum entered by Neena Orourke RN 09/13/22 06:22: Noted increased movement in pt starting @0530. Pt is now moving his fingers and facial muscles occasionally. Still no eyeopening or withdraw from painful stimuli. Original Note: Updated Dr. Ruano: HR 150. Pt's [place] coma scale is still a 3. No eyeopening/withdrawl w/ painful stimuli. Now new orders @this time.
[2022-09-13 04:43] LABS: Alanine Aminotransferase 63 U/L (0-41); Albumin Level 2.2 g/dL (3.5-5.2); Alkaline Phosphatase 205 U/L (40-130); Anion Gap 19.8 (5-19); Aspartate Amino Transferase 23 U/L (0-40); Blood Urea Nitrogen 33 mg/dL (8-23); Calcium 6.5 mg/dL (8.5-10.5); Carbon Dioxide 16 mmol/L (22-29); Chloride 99 mmol/L (98-107); Globulin 2.5 g/dL (1.3-4.6); Glomerular Filtration Rate 30.7 mL/min (90-130); Glucose 183 mg/dL (65-115); Magnesium 1.2 mg/dL (1.7-2.3); Osmolality Calculated 284 mOsm/kg (285-295); Phosphorus 6.1 mg/dL (2.5-4.5); Potassium 3.8 mmol/L (3.5-5.1); Sodium 131 mmol/L (136-145); Total Bilirubin 1.2 mg/dL (0.15-1.2); Total Protein 4.7 g/dL (6.6-8.7)
[2022-09-13 04:47] LABS: NT Pro B Type Natriuretic Pept 1184 pg/mL (0-125); Procalcitonin 13.64 ng/mL (0-0.5)
[2022-09-13 04:59] LABS: Glucose Point of Care 129 mg/dL (70-110)
--- NOTE | 2022-09-13 06:00 | XRR_ITS ---
PROCEDURE INFORMATION: Exam: XR Chest Exam date and time: 09/13/2022 5:32 AM Age: 61 years old Clinical indication: Other: Resp failure; Additional info: Respiratory failure TECHNIQUE: Imaging protocol: Radiologic exam of the chest. Views: 1 view. COMPARISON: CR (CHEST, ) 09/12/2022 3:48 PM FINDINGS: Tubes, catheters and devices: Endotracheal tube is terminating slightly above the my about 1.5 cm. The enteric tube is extending near the gastroesophageal junction. Central venous catheter terminates near distal SVC. Left chest ICD is present. Lungs: Low lung volumes. Hazy perihilar central ground-glass opacities increased from comparison. Pleural spaces: Unremarkable. No pleural effusion. No pneumothorax. Heart/Mediastinum: Mild severity cardiomegaly. Bones/joints: Unremarkable. XR/XR chest 1V portable [id number] IMPRESSION: Increased central pulmonary opacities likely reflecting pulmonary edema changes.
[2022-09-13] MEDS: insulin lispro 100 unit/1 mL SUBCUT ×2 (08:08→11:32)
[2022-09-13] MEDS: magnesium sulfate premix 2 GM/50 ML PIGGYBACK IV (08:08)
[2022-09-13] MEDS: potassium chloride ER 20 mEq Tablet 40 MEQ PO (08:08)
[2022-09-13] MEDS: sodium bicarbonate 150 MEQ in dextrose 5% 1,000 ML 50 MEQ IV (08:39)
[2022-09-13] MEDS: ondansetron 2 mg/ML SDV 2 mL 4 MG IVP (10:33)
[2022-09-13 11:21] LABS: Glucose Point of Care 176 mg/dL (70-110)
--- NOTE | 2022-09-13 12:00 | ANES.PROC ---
Anesthesia Procedures Procedure/Date: 09/13/22 Arterial Line: Time Out Performed: Yes Consent: from patient, risks and benefits reviewed and patient agrees to proceed Size (Gauge): 20 Technique Used: guide wire technique Post-Procedure: dry sterile dressing placed Patient Tolerated Procedure: well Complications: none Site: left and radial Additional Comments: This was done preoperatively on 09/12 with 2mls of 1% lido for local. Central Venous Insert: Central Venous Line: 3-lumen 7fr 16cm Time Out Performed: Yes Consent: from patient, risks and benefits reviewed and patient agrees to proceed Central Line: New Anesthesia monitors: pulse oximetry, EKG, BP cuff and oxygen Vein cannulated: right internal jugular Post procedure: Obtain Chest X-Ray Additional Comments: This was done just after induction for procedure (exlap) on 09/12/22. Seldinger tech, sterile prep, drape, gown, glove and mask. Sutured in place, abx spacer and sterile dressing.
[2022-09-13] MEDS: propofol 1,000 MG/100 ML INJ 2.72 MG IV (12:03)
--- NOTE | 2022-09-13 12:20 | ANE.PACU2 ---
Inpatient post-anesthesia follow up: Airway intact: Yes (ETT) Vital signs: Temperature 99.4 F Pulse Rate 89 Respiratory Rate 25 Blood Pressure 99/63 Pulse Oximetry 98 Oxygen Delivery Me thod Mechanical Ventila tion Oxygen Flow Rate 2 Fraction of Inspir ed Oxygen 35 Hydration adequate: Yes Nausea and vomiting: No Pain level: 3 Mental status: Altered (sedated) Additional Comments: Stable hemodynamically.
--- NOTE | 2022-09-13 12:26 | P.PN_ITS ---
Subjective Subjective: Patient was seen and examined this morning, overnight underwent exploratory laparotomy, currently is intubated sedated on mechanical ventilation, was in A-fib with RVR overnight.Generally poor urine output since admission, though serum creatinine has slightly improved, has completed septic bolus IV fluid dosing, Also has severe metabolic acidosis, a.m. chest x-ray suggestive of slight pulmonary vascular congestion. ET tube adjustment has been made it has been pulled up: By 1 cm. Medications: Medication Review Details: Generic Name Dose Route Start Last Admin Trade Name Freq PRN Reason Stop Dose Admin Norepinephrine Bit artrate 4 mg 254 mls @ 0 mls/h r 09/12/22 16:00 09/13/22 06:51 / Dextrose IV 4 mcg/min .Q0M SAVANAH 15.24 mls/hr Administration Protocol Per Protocol Piperacillin Sod/T azobactam 50 mls @ 12.5 mls /hr 09/12/22 18:30 09/13/22 09:41 Sod 3.375 gm/ So dium Chloride IV 12.5 mls/hr Q8H SAVANAH Administration Protocol Fentanyl 2,500 mcg / Sodium 250 mls @ 0 mls/h r 09/12/22 22:15 09/12/22 22:32 Chloride IV 25 mcg/hr .Q0M SAVANAH 2.5 mls/hr Administration Protocol Per Protocol Propofol 1,000 mg in 100 m ls @ 0 mls/hr 09/12/22 22:15 09/13/22 12:03 Diprivan IV 50 mcg/kg/min .Q0M SAVANAH 27.22 mls/hr Titration Protocol Per Protocol Amiodarone HCl 900 mg/ 518 mls @ 0 mls/h r 09/13/22 01:45 09/13/22 02:17 Dextrose/ IV Misce llaneous IV 1 mg/min Supplies .Q0M SAVANAH 34.53 mls/hr Administration Protocol Per Protocol Sodium Bicarbonate 150 meq/ 1,150 mls @ 50 ml s/hr 09/13/22 08:00 09/13/22 08:39 Dextrose IV 50 mls/hr .Q23H SAVANAH Administration Insulin Human Lisp ro 0 unit 09/13/22 08:00 09/13/22 11:32 Insulin Lispro 1 00 Unit/1 Ml SUBCUT 2 unit TIDWM SAVANAH Administration Protocol Ondansetron HCl 4 mg 09/12/22 18:17 09/13/22 10:33 Ondansetron 2 Mg /Ml Sdv 2 Ml IVP 4 mg Q8H PRN Administration vomiting, or N/V if npo Pantoprazole Sodiu m 40 mg 09/12/22 18:30 09/12/22 22:53 Pantoprazole 40 Mg Sdv IVP 40 mg Q24H SAVANAH Administration Vitals/I&O/Wt Last Vital Signs Temp 99.4 F 09/13/22 04:40 Pulse 95 09/13/22 12:15 Resp 25 H 09/13/22 10:28 BP 115/69 09/13/22 12:15 Pulse Ox 98 09/13/22 12:15 O2 Del Method 09/12/22 22:05 O2 Flow Rate 2 09/12/22 20:10 FiO2 35 09/13/22 10:28 09/12/22 09/13/22 09/13/22 22:59 06:59 14:59 Intake Total 4293.726 / 4293.726 317.077 / 4610.803 20.536 / 20.536 Output Total 75 / 75 Balance 4293.726 / 4293.726 242.077 / 4535.803 20.536 / 20.536 Weight last 48 hrs Weight 89.312 kg Weight 90.718 kg Weight 99.79 kg Physical Exam Narrative: Intubated sedated on mechanical ventilation. HENMT: COMMON NORMALS: normocephalic and atraumatic HEAD & SCALP: normocephalic and atraumatic Resp: COMMON NORMALS: clear to auscultation bilaterally EFFORT & INSPECTION: Yes symmetric chest movement AUSCULTATION: clear to auscultation bilaterally Cardio: COMMON NORMALS: Peripheral pulses 2+ throughout PERIPHERAL PULSES: Peripheral pulses 2+ throughout GI: COMMON NORMALS: Soft to palpation and No hepatosplenomegaly present AUSCULTATION: Yes normoactive bowel sounds PALPATION: Yes Soft to palpation and Yes No hepatosplenomegaly present RECTAL EXAM: Yes deferred Extremity: COMMON NORMALS: no clubbing, cyanosis or edema and no pedal edema Urinary Catheter Management: Nuñez: Cath Placed During This Visit: yes Reason for Continuing Indwelling Catheter: Accurate Measurement of Urinary Output in Critically Ill Patients Urinary Catheter Date of Insertion: 09/12/22 Urinary Catheter Time of Insertion: 16:26 Data 09/13/22 03:30 09/13/22 03:30 Micro: Microbiology 09/12/22 17:22 Blood Culture - Preliminary Blood SPECIMEN COLLECTED 09/12/22 17:13 Blood Culture - Preliminary Blood SPECIMEN COLLECTED A&P Assessment and plan (1) Small bowel obstruction: (2) CAD (coronary artery disease): (3) Hyponatremia: (4) Metabolic acidosis: (5) Lactic acid acidosis: (6) Hypotension: (7) Acute kidney injury superimposed on CKD: (8) Atrial fibrillation: (9) UTI (urinary tract infection): (10) Hyperphosphatemia: (11) Hypomagnesemia: (12) Hypocalcemia: Serum calcium for hypoalbuminemia: 7.9 Will give 1 g calcium chloride IV Monitor serum calcium Plan 61 year old male with a past medical history of CAD status post stenting x10, noninsulin-dependent type 2 diabetes mellitus, hypertension, status post ICD placement, history of ventricular tachycardia, history of sick sinus syndrome, depression, atrial fibrillation was on Eliquis and has been out of supply has not taken in the last 2 months, CVA 03/2022, was brought in today with chief complaint of abdominal pain nausea vomiting started 3 days back and since then it has progressively worsened, patient states that he was having hematemesis also Yesterday states a lot. Assessment: Small bowel obstruction: Appreciate CT abdomen and pelvis finding S/p exploratory laparotomy Currently n.p.o. Surgery on board Pain control Antiemetics Shock: Likely hypovolemic: With Possible septic shock as well. Patient has received septic fluid boluses, and is currently on Levophed. Follow-up blood culture, urine culture. Currently patient meets sepsis criteria: Has elevated lactic acid procalcitonin though procalcitonin elevation has to be carefully interpreted in the setting of DEMETRIS and possibly developing acute renal failure, UTI as a source, as well as possible GI infection, in the form of GI translocation in the setting of SBO. Patient is tachypneic tachycardic. Endorgan damage in the form of DEMETRIS, increased metabolic acidosis, Continue IV hydration, monitor H&H. Empirically started on Zosyn to cover for any possible GI infection. A-fib with RVR: Was started on amiodarone drip overnight Continue telemetry monitoring Currently not on therapeutic anticoagulation Increased anion gap metabolic acidosis: Likely secondary to lactic acidosis: DEMETRIS/sepsis Follow UP repeat lactic acid.Normal Currently on bicarb drip Monitor ABG Plan as above Hypovolemic hyponatremia: Admission serum sodium is 129 Currently patient is being volume resuscitated, monitor Serum sodium every 4 hours. TSH Random urine sodium: 10 Random urine creatinine:107 Urine osmolality Serum osmolality Random cortisol Likely prerenal DEMETRIS on CKD : Complicated by ATN secondary to hypotension :Monitor for possible acute renal failure development. Baseline serum creatinine is around 0.6-1 Admission serum creatinine is: 2.6 Monitor BMP Avoid nephrotoxic's FENA:0.2 (prerenal ) Random total protein UPCR Random urine sodium:10 Random urine creatinine:107 Random urine total protein: 45 Renal ultrasound Monitor intake output charting Nuñez catheter in place Low threshold for possible renal consult History of coronary artery disease status post stent: History of diabetes: Currently n.p.o. LDSSI, monitor fingerstick glucose CODE STATUS: Full code DVT prophylaxis on SCD Attestations Medical Necessity Statement*: Needs to be in hospital for management of septic shock Time Spent in Patient Care: Greater than 35 minutes (>than 50% of time spent in counselling and/or direct pt care on unit) . Critical Care Time: The high probability of a clinically significant, sudden or life threatening deterioration of the patient's [] system(s) required my full and direct attention, intervention and personal management. The critical care time is as shown. This time is in addition to time spent performing any reported procedures but includes the following: [x] Data and vital sign review and interpretation [x] Patient assessment, examination and intervention [x] Documentation [x] Medication orders and management Critical Care Time (min): 60 Procedures Arterial Line Size (Gauge): 20 Coding Level of Care Code Acute Code for Chg Fwd Diagnoses Small bowel obstruction K56.609 CAD (coronary artery disease) I25.10 Hyponatremia E87.1 Metabolic acidosis E87.20 Lactic acid acidosis E87.20 Hypotension I95.9 Acute kidney injury superimposed on CKD N17.9; N18.9 Atrial fibrillation I48.91 UTI (urinary tract infection) N39.0 Hyperphosphatemia E83.39 Hypomagnesemia E83.42 Hypocalcemia E83.51
--- NOTE | 2022-09-13 12:29 | USR_ITS ---
PROCEDURE INFORMATION: Exam: US Retroperitoneal; Complete; Kidneys and Bladder Exam date and time: 09/13/2022 4:02 PM Age: 61 years old Clinical indication: Abnormal findings; Abnormal lab test; Abnormal function test of other organs/systems; Prior surgery; Surgery date: Post-operative (0-2 days); Additional info: [place]illa TECHNIQUE: Imaging protocol: Real-time ultrasound of the retroperitoneum with image documentation. Complete exam focused on the kidneys and bladder. COMPARISON: CT abdomen pelvis wo con [id number] 09/12/2022 5:29 PM FINDINGS: Right kidney: Normal. No stones. No hydronephrosis. Left kidney: Normal. No stones. No hydronephrosis. Urinary bladder: Unremarkable. US/US renal BI* [id number] IMPRESSION: Unremarkable kidneys and bladder.
--- NOTE | 2022-09-13 13:07 | PM.PN ---
Subjective Subjective: This patient is admitted to the ICU overnight. The patient has required Levophed to support his blood pressure. The patient has had relatively low urine output overnight. When the patient sedation is turned off. The patient is following commands. Medications: Reviewed: Yes Vitals/I&O/Wt Last Vital Signs Temp 99.4 F 09/13/22 04:40 Pulse 95 09/13/22 12:15 Resp 25 H 09/13/22 10:28 BP 115/69 09/13/22 12:15 Pulse Ox 98 09/13/22 12:15 O2 Del Method 09/12/22 22:05 O2 Flow Rate 2 09/12/22 20:10 FiO2 35 09/13/22 10:28 09/12/22 09/13/22 09/13/22 22:59 06:59 14:59 Intake Total 4293.726 / 4293.726 317.077 / 4610.803 20.536 / 20.536 Output Total 75 / 75 Balance 4293.726 / 4293.726 242.077 / 4535.803 20.536 / 20.536 Weight last 48 hrs Weight 196 lb 14.4 oz Weight 200 lb Weight 220 lb Physical Exam Narrative: Generally: No acute distress. The patient is on mechanical ventilation. The patient is intubated and sedated Lungs: Clear to auscultation. Were not suctioning much out of his endotracheal tube. The patient does not appear to be requiring a lot of support from the ventilator Heart: Is regular rate and rhythm. The patient remains on pressors Abdomen: Nondistended. The patient has decreased bowel sounds. I do not appreciate any rushes or tinkles. The patient's midline wound is immediate postop. There is no evidence of infection at this time. Extremities: There is no edema. Neurologic: Patient follows commands when he is off of sedation. Urinary Catheter Management: Nuñez: Cath Placed During This Visit: yes Reason for Continuing Indwelling Catheter: Accurate Measurement of Urinary Output in Critically Ill Patients Urinary Catheter Date of Insertion: 09/12/22 Urinary Catheter Time of Insertion: 16:26 Data 09/13/22 03:30 09/13/22 03:30 Micro: Microbiology 09/12/22 17:22 Blood Culture - Preliminary Blood SPECIMEN COLLECTED 09/12/22 17:13 Blood Culture - Preliminary Blood SPECIMEN COLLECTED Attestation for Other Data: I personally reviewed and interpreted the following: (All labs have been reviewed) A&P Assessment and plan (1) Small bowel obstruction: The patient was taken the operating room yesterday. No small bowel obstruction was found. I believe can start the patient on tube feedings. We will start him on trickle tube feedings once the patient is off of pressors. The patient appears to be somewhat hypovolemic. We will bolus the patient with 1 L of lactated Ringer's. Will continue to follow this patient with you. Attestations Medical Necessity Statement*: Continued ICU care Procedures Arterial Line Size (Gauge): 20 Coding Level of Care Code Acute Code for Chg Fwd Medical Decision Making High Complexity Diagnoses Small bowel obstruction K56.609
[2022-09-13] MEDS: calcium chloride 10% Syr 10 mL 1 GM IVP (13:29)
[2022-09-13] MEDS: lactated ringers 1,000 ML 999 ML IV (13:29)
[2022-09-13] MEDS: propofol 1,000 MG/100 ML INJ 21.77 MG IV ×2 (15:00→19:06)
[2022-09-13 15:36] LABS: ABG PCO2 27.6 mmHg (35-45); ABG PH Result 7.44 (7.35-7.45); Alveolar-Arterial Oxygen Gradi 11.9 mmHg (5-10); Arterial Blood Gas Hematocrit 35.7 % (42-52); Base Excess ABG -4.1 mmol/L (-2.0-2.0); Blood Gas Operator Identificat CAK; Blood Gas Sample Site ARTLINE; Blood Gas Sample Type Arterial; Blood Gas Tidal Volume 0.45; Carboxyhemoglobin 0.8 %THgb (0.4-20.1); HCO3 ABG 18.8 mmol/L (22-26); HGB O2 Sat 96.5 % (95-100); Ionized Calcium Level - ABG 1.1 mmol/L (1.1-1.4); Methemoglobin 1.6 % (0.4-1.5); Oxygen Device VENT; Oxygen Saturation ABG 98.9; Potassium Level - ABG 3.8 mmol/L (3.5-5.0); Total Hemoglobin 11.6 g/dL (14-18)
[2022-09-13 16:43] LABS: Glucose Point of Care 109 mg/dL (70-110)
[2022-09-13] MEDS: pantoprazole 40 mg SDV IVP (17:38)
[2022-09-13 21:33] LABS: Glucose Point of Care 92 mg/dL (70-110)
[2022-09-13] MEDS: FUROsemide 10 mg/mL SDV 2mL 20 MG IVP (21:33)
[2022-09-14] VITALS (102 sets, daily range): BP systolic 96–154; BP diastolic 49–118; PULSE 62–111; RESP 16; TEMP 36.2–36.6; O2SAT 90–99
[2022-09-14] MEDS: propofol 1,000 MG/100 ML INJ 13.61 MG IV ×4 (00:02→15:53)
[2022-09-14] MEDS: piperacillin-tazobactam 3.375 GM in sodium chloride 0.9% (plus) 50 ML IV ×3 (02:09→17:32)
[2022-09-14 02:53] LABS: Ionized Calcium 1.1 mmol/L (1.1-1.4)
[2022-09-14 03:05] LABS: Basophils % 0.2 %; Hematocrit 32.9 % (42.0-52.0); Hemoglobin 11.2 g/dL (11.7-16.6); Lymphocytes # 0.9 10^3/uL (0.8-4.8); Lymphocytes % 16.2 %; Mean Corpuscular Hemoglobin 32.3 pg (28.0-34.0); Mean Corpuscular Volume 94.8 fl (80-94); Mean Platelet Volume 10.9 fL (7.4-10.4); Monocytes # 0.6 10^3/uL (0.2-0.9); Monocytes % 10.7 %; Neutrophils # 3.78 10^3/uL (1.8-7.7); Neutrophils % 72.1 %; Nucleated Red Blood Cells % 0 %; Platelet Count 132 10^3/cmm (130-400); Red Blood Count 3.47 10^6/uL (4.1-5.3); Red Cell Distribution Width 19.7 % (12.1-15.1); White Blood Count 5.2 10^3/uL (4.0-10.0)
[2022-09-14 03:27] LABS: Alanine Aminotransferase 41 U/L (0-41); Albumin Level 1.9 g/dL (3.5-5.2); Alkaline Phosphatase 164 U/L (40-130); Anion Gap 13.8 (5-19); Aspartate Amino Transferase 24 U/L (0-40); Blood Urea Nitrogen 31 mg/dL (8-23); Calcium 7.1 mg/dL (8.5-10.5); Carbon Dioxide 18 mmol/L (22-29); Chloride 99 mmol/L (98-107); Globulin 2.4 g/dL (1.3-4.6); Glomerular Filtration Rate 34.3 mL/min (90-130); Glucose 104 mg/dL (65-115); Osmolality Calculated 271 mOsm/kg (285-295); Potassium 3.8 mmol/L (3.5-5.1); Sodium 127 mmol/L (136-145); Total Bilirubin 1.1 mg/dL (0.15-1.2); Total Protein 4.3 g/dL (6.6-8.7)
--- NOTE | 2022-09-14 06:37 | P.PN_ITS ---
Subjective Subjective: Patient intubated and sedated. Abdomen distended Vitals/I&O/Wt Last Vital Signs Temp 99.0 F 09/16/22 04:45 Pulse 65 09/16/22 06:00 Resp 14 09/16/22 03:00 BP 150/84 09/16/22 06:00 Pulse Ox 97 09/16/22 06:00 O2 Del Method 09/15/22 18:00 O2 Flow Rate 2 09/12/22 20:10 FiO2 30 09/16/22 03:00 09/15/22 09/15/22 09/16/22 14:59 22:59 06:59 Intake Total 913.333 / 913.333 717.811 / 6836.224 1539.978 / 2984.122 Output Total 600 / 600 650 / 1250 Balance 913.333 / 913.333 117.811 / 1031.144 702.978 / 1734.122 Weight last 48 hrs Weight 226 lb 1.6 oz Weight 226 lb Physical Exam Narrative: General: No acute distress, intubated and sedated Abdomen: Soft, mildly distended, no grimace to palpation Urinary Catheter Management: Nuñez: Cath Placed During This Visit: yes Reason for Continuing Indwelling Catheter: Accurate Measurement of Urinary Outpu t in Critically Ill Patients Urinary Catheter Date of Insertion: 09/12/22 Urinary Catheter Time of Insertion: 16:26 Data 09/16/22 03:07 09/16/22 03:07 Micro: Microbiology 09/13/22 10:31 Gram Stain - Final Sputum - Endotracheal Tube Aspirate Sputum Culture - Final Escherichia coli esbl 09/14/22 18:05 MRSA Culture - Final Nose A&P Assessment and plan (1) Small bowel obstruction: Plan No obstruction seen in the operating room I would like to see evidence of bowel movement or passing gas before starting tube feeds Medical management per hospitalist Attestations Medical Necessity Statement*: Patient requires at least 1 more night in the hospital for intensive care following exploratory laparotomy. He is intubated Procedures Arterial Line Size (Gauge): 20 Coding Level of Care Code Acute Code for [facility] Fwd Diagnoses Small bowel obstruction K56.609
[2022-09-14 07:10] LABS: Glucose Point of Care 108 mg/dL (70-110)
[2022-09-14 07:14] LABS: Glucose Point of Care 191 mg/dL (70-110)
[2022-09-14 08:36] LABS: Glucose Point of Care 91 mg/dL (70-110)
--- NOTE | 2022-09-14 10:19 | XRR_ITS ---
PROCEDURE INFORMATION: Exam: XR Chest Exam date and time: 09/14/2022 11:12 AM Age: 61 years old Clinical indication: Device placement; Ett placement (vent status); Additional info: Intubated TECHNIQUE: Imaging protocol: Radiologic exam of the chest. Views: 1 view. Total images: 2 COMPARISON: CR (CHEST, ) 09/13/2022 5:32 AM FINDINGS: Tubes, catheters and devices: AICD projects in satisfactory location. Endotracheal tube overlies the trachea with the tip 5.0 cm above the my in satisfactory position. Nasogastric tube has its proximal port at the GE junction, recommend advancement by 7-10 cm. A right internal jugular central venous catheter is present, with its tip overlying the region of the superior vena cava and unchanged from prior exam. Lungs: Bilateral pulmonary opacities are again noted and appear unchanged. Pleural spaces: Unremarkable. No pleural effusion. No pneumothorax. Heart/Mediastinum: Heart is enlarged but stable when compared to the prior exam. Coronary stent noted. Diaphragm: There is nonspecific elevation of the right hemidiaphragm. Bones/joints: Osseous structures are unchanged from the prior exam. XR/XR chest 1V portable [id number] IMPRESSION: 1. Endotracheal tube overlies the trachea with the tip 5.0 cm above the my in satisfactory position. 2. Nasogastric tube has its proximal port at the GE junction, recommend advancement by 7-10 cm. 3. Heart is enlarged but stable when compared to the prior exam. 4. Bilateral pulmonary opacities are again noted and appear unchanged.
[2022-09-14 10:22] LABS: Glucose Point of Care 96 mg/dL (70-110)
[2022-09-14] MEDS: sodium chloride 0.9% 1,000 ML 100 ML IV (10:26)
[2022-09-14] MEDS: albumin 25 G/100 ML BAG 60 G IV ×2 (10:41→17:32)
[2022-09-14 10:51] LABS: Iron 54 ug/dL (59-158); Percent Saturation 67.5 % (20-50); Total Iron Binding Capacity 80 mcg/dl; Unsaturated Iron Binding 26 ug/dL (112-347)
[2022-09-14 10:53] LABS: Thyroid Stimulating Hormone 0.14 uIU/mL (0.27-4.20)
[2022-09-14 11:01] LABS: Vitamin B12 1567 pg/mL (232-1245)
[2022-09-14 11:12] LABS: Folate Level 14.3 ng/mL (4.5-32.2)
--- NOTE | 2022-09-14 15:27 | XRR_ITS ---
PROCEDURE INFORMATION: Exam: XR Chest Exam date and time: 09/14/2022 3:48 PM Age: 61 years old Clinical indication: Device placement; Ett placement (vent status); Additional info: Et tube placement TECHNIQUE: Imaging protocol: Radiologic exam of the chest. Views: 1 view. COMPARISON: CR XR chest 1V portable [id number] 09/14/2022 11:12 AM FINDINGS: Tubes, catheters and devices: There is an ET tube in satisfactory position approximately 4 cm above the my. There is a right-sided central line whose tip projects at the cavoatrial junction unchanged. There are pacemaker wires in ICD monitor is extending to the right atrium right ventricle, unchanged. Lungs: Lung volumes are decreased with relative elevation of the right hemidiaphragm unchanged.. There is haziness and ground-glass opacities with increased indistinct markings both lung farrell relatively stable may in part be related to the semi positioning. Pleural spaces: Unremarkable. No pleural effusion. No pneumothorax. Heart/Mediastinum: Heart is mildly enlarged. Bones/joints: Unremarkable for age. XR/XR chest 1V portable [id number] IMPRESSION: 1. Tubes and lines in satisfactory position. 2. Cardiomegaly with decreased lung volumes and stable scattered pulmonary opacities both lung farrell.
[2022-09-14 15:47] LABS: Glucose Point of Care 98 mg/dL (70-110)
[2022-09-14] MEDS: gabapentin 100 mg Capsule PO ×2 (15:54→22:20)
[2022-09-14 17:08] LABS: Glucose Point of Care 87 mg/dL (70-110)
--- NOTE | 2022-09-14 17:13 | PM.PN ---
Subjective Subjective: Hospital course: Seen multiple times in the day. Today morning on examination patient is on mechanical ventilation with fentanyl and propofol currently on Levophed of 2 with mean artery pressure running around 66. Current mechanical ventilator settings with FiO2 of 35%, tidal volume 450, PEEP of 6. Documented urine output in last 24 hours of around 1 L with 700 cc overnight. Has remained afebrile. Vitals/I&O/Wt Last Vital Signs Temp 97.8 F 09/14/22 04:00 Pulse 68 09/14/22 16:30 Resp 16 09/14/22 15:24 BP 109/70 09/14/22 16:30 Pulse Ox 95 09/14/22 16:30 O2 Del Method 09/14/22 04:00 O2 Flow Rate 2 09/12/22 20:10 FiO2 30 09/14/22 15:24 09/14/22 09/14/22 09/14/22 06:59 14:59 22:59 Intake Total 233.555 / 1540.234 221.386 / 221.386 59.43 / 280.816 Output Total 650 / 1000 Balance -416.445 / 540.234 221.386 / 221.386 59.43 / 280.816 Weight last 48 hrs Weight 100.1 kg Weight 89.312 kg Physical Exam Narrative: Intubated sedated on mechanical ventilation. Const: COMMON NORMALS: average body habitus GENERAL APPEARANCE: well hydrated NUTRITIONAL APPEARANCE: overweight ORIENTATION/CONSCIOUSNESS: Yes Other orientation findings (Sedated, intubated) HENMT: COMMON NORMALS: normocephalic and atraumatic HEAD & SCALP: normocephalic and atraumatic Resp: COMMON NORMALS: normal respiratory effort, No retractions, No use of accessory muscles and clear to auscultation bilaterally EFFORT & INSPECTION: Yes symmetric chest movement AUSCULTATION: clear to auscultation bilaterally Cardio: COMMON NORMALS: Peripheral pulses 2+ throughout PERIPHERAL PULSES: Peripheral pulses 2+ throughout GI: COMMON NORMALS: Soft to palpation and No hepatosplenomegaly present AUSCULTATION: Yes normoactive bowel sounds PALPATION: Yes Soft to palpation and Yes No hepatosplenomegaly present RECTAL EXAM: Yes deferred Extremity: COMMON NORMALS: no clubbing, cyanosis or edema and no pedal edema Urinary Catheter Management: Nuñez: Cath Placed During This Visit: yes Reason for Continuing Indwelling Catheter: Accurate Measurement of Urinary Output in Critically Ill Patients Urinary Catheter Date of Insertion: 09/12/22 Urinary Catheter Time of Insertion: 16:26 Data 09/14/22 02:35 09/14/22 02:35 Micro: Microbiology 09/13/22 10:31 Gram Stain - Final Sputum - Endotracheal Tube Aspirate Sputum Culture - Preliminary Gram Negative Rods 09/12/22 16:20 Urine Culture - Final Urine,Clean Catch 09/12/22 17:22 Blood Culture - Preliminary Blood NEGATIVE TO DATE 09/12/22 17:13 Blood Culture - Preliminary Blood NEGATIVE TO DATE A&P Assessment and plan (1) Septic shock: (2) Small bowel obstruction: (3) S/P exploratory laparotomy: (4) DEMETRIS (acute kidney injury): (5) Hyponatremia: (6) Metabolic acidosis: (7) Lactic acid acidosis: (8) Atrial fibrillation: (9) Hyperphosphatemia: (10) Hypomagnesemia: (11) Hypocalcemia: Serum calcium for hypoalbuminemia: 7.9 Will give 1 g calcium chloride IV Monitor serum calcium (12) CAD (coronary artery disease): Plan 61 year old male with a past medical history of CAD status post stenting x10, noninsulin-dependent type 2 diabetes mellitus, hypertension, status post ICD placement, history of ventricular tachycardia, history of sick sinus syndrome, depression, atrial fibrillation was on Eliquis and has been out of supply has not taken in the last 2 months, CVA 03/2022, was brought in today with chief complaint of abdominal pain nausea vomiting started 3 days back and since then it has progressively worsened, patient states that he was having hematemesis also Yesterday states a lot. Assessment: Small bowel obstruction: Post exploratory laparotomy day 1. Appreciate surgical recommendations. Keep NPO. Maintain NG tube. Abdominal series x-ray in a.m. Diet, bowel regimen as per surgical team. Shock: Septic versus hypovolemic. Maintain mean arterial pressure over 65. Wean off Levophed accordingly. On admission patient was in metabolic acidosis, lactic acidosis with target organ dysfunction of acute kidney injury, respiratory failure requiring mechanical ventilation. Bolus 500 cc normal saline. IV fluids at 100 cc/h. Check MRSA swab, stool studies when possible. Continue empiric Zosyn to cover for any possible GI infection. Acute kidney injury: Baseline creatinine normal. Currently creatinine more than 2. Urine output improving. Medical reconciliation done for nephrotoxic drugs. Most likely prerenal. Appreciate urine lites. Abdominal scan rule out obstructive nephropathy. Maintain Nuñez catheter. Monitor BMP every 12 hourly. Hyponatremia: Most likely hypovolemic. IV fluid as above. Repeat BMP in evening. Electrolyte abnormality/metabolic acidosis: Resolving. Monitor electrolytes. A-fib with RVR: Currently back in normal sinus rhythm. Amiodarone drip stopped earlier today morning because of mild bradycardia. Takes metoprolol at home which is currently on hold because of hypotension. Continue to monitor. If needed will start on amiodarone again and transition to oral. No need of therapeutic anticoagulation as A-fib for less than 48 hours. History of coronary artery disease status post stent: History of diabetes: Currently n.p.o. LDSSI every 6 hourly, monitor fingerstick glucose Sedation: Propofol and fentanyl Glycemic control: Low-dose sliding scale every 6 hourly Nutrition: NPO. NG tube in place. CODE STATUS: Full code PUD prophylaxis: Protonix DVT prophylaxis: Start heparin 5000 every 12 hourly. Discharge planning: We will plan once patient is extubated. Continue with care at ICU. Plan for the day: Start on D5 NS at 100 cc/h because of recurrent hypoglycemia. Hypoglycemia protocol. Check blood sugar every 6 hourly. 1 L normal saline bolus. Sedation vacation. Plan for extubation within next 24 hours. Hold off on sedation tomorrow morning in AM. We will maintain NG tube around extubation. Repeat BMP in evening. Check MRSA swab, stool studies and possible. Restart multiple home medications including gabapentin, Seroquel, sertraline, tizanidine as per creatinine clearance. Keep mean artery pressure over 65. Wean Levophed accordingly. Start on albumin every 8 hourly. This documentation was created by [employer] medical research assistant software. Every effort was made to ensure accuracy of medical research assistant. Any obvious errors or omissions should be clarified with the author of the document. Attestations Medical Necessity Statement*: Patient requires further hospitalization for management of shock, ventilator dependence respiratory failure, acute kidney injury, small bowel obstruction post exploratory laparotomy Procedures Arterial Line Size (Gauge): 20 Coding Level of Care Code Critical Care >/= 30 minutes Critical care time (in minutes): 70 The high probability of a clinically significant, sudden or life threatening deterioration, as referenced in this documentation, required my full and direct attention, intervention and personal management. The critical care time shown is in addition to time spent performing any reported separately billable procedures and includes the following: [x] Data and vital sign review and interpretation [x] Patient assessment, examination and intervention [x] Medication orders and management [x] Patient/Family updates as able [x] Care Coordination and Documentation. Diagnoses Septic shock A41.9; R65.21 Small bowel obstruction K56.609 S/P exploratory laparotomy Z98.890 DEMETRIS (acute kidney injury) N17.9 Hyponatremia E87.1 Metabolic acidosis E87.20 Lactic acid acidosis E87.20 Atrial fibrillation I48.91 Hyperphosphatemia E83.39 Hypomagnesemia E83.42 Hypocalcemia E83.51 CAD (coronary artery disease) I25.10
[2022-09-14] MEDS: dextrose 5%-sod chloride 0.9% 1,000 ML 100 ML IV (17:31)
[2022-09-14] MEDS: pantoprazole 40 mg SDV IVP (17:32)
[2022-09-14] MEDS: heparin 5,000 unit/mL INJ 1 mL 5000 UNIT SUBCUT (17:50)
[2022-09-14] MEDS: propofol 1,000 MG/100 ML INJ 21.77 MG IV (18:13)
[2022-09-14 19:13] LABS: Anion Gap 12.3 (5-19); Blood Urea Nitrogen 30 mg/dL (8-23); Calcium 7.2 mg/dL (8.5-10.5); Carbon Dioxide 20 mmol/L (22-29); Chloride 102 mmol/L (98-107); Glomerular Filtration Rate 56.3 mL/min (90-130); Glucose 102 mg/dL (65-115); Osmolality Calculated 278 mOsm/kg (285-295); Potassium 3.3 mmol/L (3.5-5.1); Sodium 131 mmol/L (136-145)
[2022-09-14 22:05] LABS: Glucose Point of Care 108 mg/dL (70-110)
[2022-09-14] MEDS: propofol 1,000 MG/100 ML INJ 24.49 MG IV (22:19)
[2022-09-14] MEDS: quetiapine 100 mg Tablet PO (22:20)
[2022-09-15] VITALS (103 sets, daily range): BP systolic 73–169; BP diastolic 49–105; PULSE 61–139; RESP 12–16; TEMP 37.2; O2SAT 91–100
[2022-09-15] MEDS: propofol 1,000 MG/100 ML INJ 21.77 MG IV (01:46)
[2022-09-15] MEDS: albumin 25 G/100 ML BAG 60 G IV ×3 (02:06→17:31)
[2022-09-15] MEDS: piperacillin-tazobactam 3.375 GM in sodium chloride 0.9% (plus) 50 ML IV ×3 (02:07→17:31)
[2022-09-15 02:44] LABS: ABG PCO2 30.9 mmHg (35-45); ABG PH Result 7.44 (7.35-7.45); Arterial Blood Gas Hematocrit 28.5 % (42-52); Base Excess ABG -2.5 mmol/L (-2.0-2.0); Blood Gas Operator Identificat MONRO; Blood Gas Sample Site Not specified; Blood Gas Sample Type Arterial; Blood Gas Tidal Volume 0.45; Carboxyhemoglobin < 1.0 %THgb (0.4-20.1); Fractionated Inspired Oxygen 0.3 %; HCO3 ABG 21.1 mmol/L (22-26); HGB O2 Sat 95.7 % (95-100); Ionized Calcium Level - ABG 1.1 mmol/L (1.1-1.4); Methemoglobin 1.4 % (0.4-1.5); Oxygen Device VENT; Oxygen Saturation ABG 97.7; PO2 ABG 92.8 mmHg (80.0-100.0); Total Hemoglobin 9.3 g/dL (14-18)
[2022-09-15 03:59] LABS: Glucose Point of Care 105 mg/dL (70-110)
[2022-09-15] MEDS: dextrose 5%-sod chloride 0.9% 1,000 ML 100 ML IV ×3 (04:15→23:30)
[2022-09-15 04:29] LABS: Alanine Aminotransferase 22 U/L (0-41); Albumin Level 2.7 g/dL (3.5-5.2); Alkaline Phosphatase 113 U/L (40-130); Anion Gap 13.1 (5-19); Aspartate Amino Transferase 14 U/L (0-40); Blood Urea Nitrogen 25 mg/dL (8-23); Calcium 7.2 mg/dL (8.5-10.5); Carbon Dioxide 19 mmol/L (22-29); Chloride 106 mmol/L (98-107); Globulin 1.7 g/dL (1.3-4.6); Glomerular Filtration Rate 61.8 mL/min (90-130); Glucose 102 mg/dL (65-115); Osmolality Calculated 285 mOsm/kg (285-295); Potassium 3.1 mmol/L (3.5-5.1); Sodium 135 mmol/L (136-145); Total Bilirubin 1.5 mg/dL (0.15-1.2); Total Protein 4.4 g/dL (6.6-8.7)
[2022-09-15 04:31] LABS: Procalcitonin 1.87 ng/mL (0-0.5)
[2022-09-15] MEDS: heparin 5,000 unit/mL INJ 1 mL 5000 UNIT SUBCUT ×2 (05:42→17:32)
[2022-09-15] MEDS: sertraline 50 mg Tablet PO (05:43)
[2022-09-15] MEDS: propofol 1,000 MG/100 ML INJ 19.05 MG IV (05:47)
[2022-09-15 07:14] LABS: Basophils % 0.4 %; Eosinophils % 0.4 %; Hematocrit 26.2 % (42.0-52.0); Hemoglobin 8.9 g/dL (11.7-16.6); Lymphocytes # 0.7 10^3/uL (0.8-4.8); Lymphocytes % 27.4 %; Mean Corpuscular Hemoglobin 32.7 pg (28.0-34.0); Mean Corpuscular Volume 96.3 fl (80-94); Monocytes # 0.2 10^3/uL (0.2-0.9); Monocytes % 9.3 %; Neutrophils # 1.61 10^3/uL (1.8-7.7); Neutrophils % 62.1 %; Nucleated Red Blood Cells % 0 %; Red Blood Count 2.72 10^6/uL (4.1-5.3); Red Cell Distribution Width 19.6 % (12.1-15.1); White Blood Count 2.6 10^3/uL (4.0-10.0)
[2022-09-15 07:22] LABS: Platelet Count 75 10^3/cmm (130-400)
[2022-09-15 08:08] LABS: Glucose Point of Care 88 mg/dL (70-110)
[2022-09-15] MEDS: gabapentin 100 mg Capsule PO ×3 (09:05→21:52)
[2022-09-15 09:08] LABS: Eosinophils % 0.7 %; Hematocrit 26.8 % (42.0-52.0); Hemoglobin 8.7 g/dL (11.7-16.6); Lymphocytes # 0.7 10^3/uL (0.8-4.8); Lymphocytes % 25.3 %; Mean Corpuscular HGB Conc 32.5 g/dL (30.0-36.0); Mean Corpuscular Hemoglobin 31.4 pg (28.0-34.0); Mean Corpuscular Volume 96.8 fl (80-94); Mean Platelet Volume 10.6 fL (7.4-10.4); Monocytes # 0.2 10^3/uL (0.2-0.9); Monocytes % 8.9 %; Neutrophils # 1.74 10^3/uL (1.8-7.7); Neutrophils % 64.7 %; Nucleated Red Blood Cells % 0 %; Platelet Count 64 10^3/cmm (130-400); Red Blood Count 2.77 10^6/uL (4.1-5.3); Red Cell Distribution Width 19.4 % (12.1-15.1); White Blood Count 2.7 10^3/uL (4.0-10.0)
--- NOTE | 2022-09-15 10:24 | PC.CHAP ---
Pastoral Care Encounter/Spiritual Assessment Type of Contact [] Declined facility maintenance mechanic visit [] Patient/Family/Request visit [] Outpatient visit [] Follow-up visit [] Physician referral [] Code/Alert [x] Routine visit [] Staff referral [] Actively dying [x] Patient sleeping [] Family support [] [] Out of room [] Palliative care [] [] Receiving care in room [] Pre-surgical visit [] Trauma [] Long length of stay [x] ICU visit [] Other: Relational/Emotional Strength [] Patient feels connected with others/family/visitors/staff [] Distress [] Loneliness/isolation [] Abandonment Spirituality of Patient [] Person of Sherrie [] Attends Confucianism of their Sherrie [] Believes in Prayer [] Reads Bible or Congregation materials [] There are Spiritual issues to be addressed [employer] Interventions [x] Prayer [] Active listening [] Non-anxious presence [] Spiritual/emotional support [] Crisis/trauma care [] Spiritual counseling [] Bereavement support [] Provided bereavement packet [] Provided Bible/devotional materials [] Provided toy/stuffed animal, coloring book to patient or family member [] Provided Communion [] Anointing/[place] [] Salvation [x] Completed spiritual assessment [] Other: Impact on Illness or Injury [] Angry [] Fearful [] Anxious [] Often cries [] Exhaustion [] Unable to work [] Unable to attend orthodoxy [] Unable to walk/stand [] Unable to read [] Unable to drive [] Unable to eat/drink [] Unable to sleep [] Unable to be with family [] Patient intubated [] Other: Summary Time spent with patient
[2022-09-15 11:14] LABS: Glucose Point of Care 84 mg/dL (70-110)
[2022-09-15] MEDS: dexmedetomidine 400 MCG in sodium chloride 0.9% (100 ml) 100 ML IV ×2 (11:15→15:03)
--- NOTE | 2022-09-15 13:04 | PC.RESP ---
wean attempt fail- pt had several apneic episodes
--- NOTE | 2022-09-15 13:38 | PC.SOCIAL ---
IMM update Patient remains intubated at this time. IMM not completed as patient is not expected to dc in next 24-48 hours
[2022-09-15 15:58] LABS: Glucose Point of Care 108 mg/dL (70-110)
--- NOTE | 2022-09-15 16:52 | PM.PN ---
Subjective Subjective: No acute events overnight. Today morning patient was seen on propofol and fentanyl. Overnight propofol had to be increased because patient was biting on the tube. Fentanyl 100 and propofol and 30. Documented urine output of 1650 in last 24 hours. Current ventilator settings tidal volume of 450, FiO2 of 30% with PEEP of 6. Has remained hemodynamically stable and afebrile. Plan was to extubate today and propofol was switched over to Precedex but patient was having recurrent episodes of apnea hence patient was placed on full support. Vitals/I&O/Wt Last Vital Signs Temp 98.9 F 09/15/22 04:30 Pulse 63 09/15/22 16:00 Resp 15 09/15/22 16:00 BP 135/78 09/15/22 16:00 Pulse Ox 98 09/15/22 16:00 O2 Del Method 09/14/22 18:00 O2 Flow Rate 2 09/12/22 20:10 FiO2 30 09/15/22 15:39 09/15/22 09/15/22 09/15/22 06:59 14:59 22:59 Intake Total 1580.009 / 3415.104 913.333 / 913.333 160.146 / 1073.479 Output Total 850 / 1650 Balance 730.009 / 1765.104 913.333 / 913.333 160.146 / 1073.479 Weight last 48 hrs Weight 102.512 kg Weight 100.1 kg Physical Exam Narrative: Intubated sedated on mechanical ventilation. Const: COMMON NORMALS: average body habitus GENERAL APPEARANCE: well hydrated NUTRITIONAL APPEARANCE: overweight ORIENTATION/CONSCIOUSNESS: Yes Other orientation findings (Sedated, intubated) HENMT: COMMON NORMALS: normocephalic and atraumatic HEAD & SCALP: normocephalic and atraumatic Resp: COMMON NORMALS: normal respiratory effort, No retractions, No use of accessory muscles and clear to auscultation bilaterally EFFORT & INSPECTION: Yes symmetric chest movement AUSCULTATION: clear to auscultation bilaterally Cardio: COMMON NORMALS: Peripheral pulses 2+ throughout PERIPHERAL PULSES: Peripheral pulses 2+ throughout GI: COMMON NORMALS: Soft to palpation and No hepatosplenomegaly present AUSCULTATION: Yes normoactive bowel sounds PALPATION: Yes Soft to palpation and Yes No hepatosplenomegaly present RECTAL EXAM: Yes deferred Extremity: COMMON NORMALS: no clubbing, cyanosis or edema and no pedal edema Urinary Catheter Management: Nuñez: Cath Placed During This Visit: yes Reason for Continuing Indwelling Catheter: Accurate Measurement of Urinary Output in Critically Ill Patients Urinary Catheter Date of Insertion: 09/12/22 Urinary Catheter Time of Insertion: 16:26 Data 09/15/22 08:48 09/15/22 03:31 Micro: Microbiology 09/14/22 18:05 MRSA Culture - Final Nose A&P Assessment and plan (1) Septic shock: (2) Small bowel obstruction: (3) S/P exploratory laparotomy: (4) DEMETRIS (acute kidney injury): (5) Hyponatremia: (6) Metabolic acidosis: (7) Lactic acid acidosis: (8) Atrial fibrillation: (9) Hyperphosphatemia: (10) Hypomagnesemia: (11) Hypocalcemia: Serum calcium for hypoalbuminemia: 7.9 Will give 1 g calcium chloride IV Monitor serum calcium (12) CAD (coronary artery disease): Plan 61 year old male with a past medical history of CAD status post stenting x10, noninsulin-dependent type 2 diabetes mellitus, hypertension, status post ICD placement, history of ventricular tachycardia, history of sick sinus syndrome, depression, atrial fibrillation was on Eliquis and has been out of supply has not taken in the last 2 months, CVA 03/2022, was brought in today with chief complaint of abdominal pain nausea vomiting started 3 days back and since then it has progressively worsened, patient states that he was having hematemesis also Yesterday states a lot. Assessment: Small bowel obstruction: Post exploratory laparotomy day 2. Appreciate surgical recommendations. Keep NPO. Maintain NG tube. Abdominal series x-ray in a.m. Diet, bowel regimen as per surgical team. Shock: Septic versus hypovolemic. Resolved. Maintain mean arterial pressure over 65. On admission patient was in metabolic acidosis, lactic acidosis with target organ dysfunction of acute kidney injury, respiratory failure requiring mechanical ventilation. Bolus 500 cc normal saline. IV fluids at 100 cc/h. Check MRSA swab, stool studies when possible. Continue empiric Zosyn to cover for any possible GI infection. Acute kidney injury: Baseline creatinine normal. Currently creatinine more than 2. Urine output improving. Medical reconciliation done for nephrotoxic drugs. Most likely prerenal. Appreciate urine lites. Abdominal scan rule out obstructive nephropathy. Maintain Nuñez catheter. Monitor BMP every 12 hourly. Hyponatremia: Most likely hypovolemic. IV fluid as above. Repeat BMP in evening. Electrolyte abnormality/metabolic acidosis: Resolving. Monitor electrolytes. A-fib with RVR: Currently back in normal sinus rhythm. Amiodarone drip stopped earlier today morning because of mild bradycardia. Takes metoprolol at home which is currently on hold because of hypotension. Continue to monitor. If needed will start on amiodarone again and transition to oral. No need of therapeutic anticoagulation as A-fib for less than 48 hours. History of coronary artery disease status post stent: History of diabetes: Currently n.p.o. LDSSI every 6 hourly, monitor fingerstick glucose Sedation: Precedex and fentanyl Glycemic control: Low-dose sliding scale every 6 hourly Nutrition: NPO. NG tube in place. CODE STATUS: Full code PUD prophylaxis: Protonix DVT prophylaxis: Start heparin 5000 every 12 hourly. Discharge planning: We will plan once patient is extubated. Continue with care at ICU. Plan for the day: Continue with IV fluids. Monitor BMP every 12 hourly. Creatinine trending down. 1.2 today. Stop propofol. Start Precedex. Continue fentanyl. Plan for extubation within the next 24 hours. Continue with gabapentin 100 mg 3 times daily, Seroquel 50 mg at bedtime, sertraline 50 mg every morning. Currently on lower dose given patient is intubated and overcoming DEMETRIS. Continue with Zosyn. MRSA swab pending. Continue NPO. Surgical recommendations appreciated. Keep mean artery pressure 65. Levophed stopped. Continue with albumin for 24 more hours. This documentation was created by [employer] performance consultant software. Every effort was made to ensure accuracy of performance consultant. Any obvious errors or omissions should be clarified with the author of the document. Attestations Medical Necessity Statement*: Requires further hospitalization for management of hypoxic respiratory failure, ventilator dependence in a patient postoperative for small bowel obstruction Procedures Arterial Line Size (Gauge): 20 Coding Level of Care Code Critical Care >/= 30 minutes Critical care time (in minutes): 60 The high probability of a clinically significant, sudden or life threatening deterioration, as referenced in this documentation, required my full and direct attention, intervention and personal management. The critical care time shown is in addition to time spent performing any reported separately billable procedures and includes the following: [x] Data and vital sign review and interpretation [x] Patient assessment, examination and intervention [x] Medication orders and management [x] Patient/Family updates as able [x] Care Coordination and Documentation. Diagnoses Septic shock A41.9; R65.21 Small bowel obstruction K56.609 S/P exploratory laparotomy Z98.890 DEMETRIS (acute kidney injury) N17.9 Hyponatremia E87.1 Metabolic acidosis E87.20 Lactic acid acidosis E87.20 Atrial fibrillation I48.91 Hyperphosphatemia E83.39 Hypomagnesemia E83.42 Hypocalcemia E83.51 CAD (coronary artery disease) I25.10
[2022-09-15] MEDS: pantoprazole 40 mg SDV IVP (17:32)
[2022-09-15] MEDS: dexmedetomidine 400 MCG in sodium chloride 0.9% (100 ml) 100 ML 13.33 MCG IV (18:00)
[2022-09-15 21:36] LABS: Glucose Point of Care 116 mg/dL (70-110)
[2022-09-15] MEDS: meropenem 1,000 MG in sodium chloride 0.9% (plus) 50 ML 100 MG IV (21:45)
[2022-09-15] MEDS: quetiapine 100 mg Tablet 50 MG PO (21:52)
--- NOTE | 2022-09-15 22:54 | PC.NURSE ---
Addendum entered by Laura Kendall RN 09/15/22 23:03: I, Jewels Kendall RN witnessed the waste of 80ml propofol,. Original Note: Propofol and Fentanyl were stopped on day-shift prior to extubation trial, stop times were not reflected in MAR. Stop times entered as 1900, beginning of shift. 80ml of propofol wasted in sink w/ AFSHIN Donis.
[2022-09-16] VITALS (103 sets, daily range): BP systolic 89–164; BP diastolic 45–96; PULSE 62–87; RESP 10–20; TEMP 36.6–37.2; O2SAT 92–100
--- NOTE | 2022-09-16 00:51 | PC.NURSE ---
Fentanyl restarted and titrated up per protocol, pt became anxious/agitated evidence by attempting to grab/pull ET tube, pulling at restraints, banging is hands against the bed rail, and overbreathing the vent. Attempted to make the pt more comfortable/less agitated by repositioning and using therapeutic communication prior to restarting fentanyl.
[2022-09-16] MEDS: dexmedetomidine 400 MCG in sodium chloride 0.9% (100 ml) 100 ML 29.32 MCG IV (01:13)
[2022-09-16 03:40] LABS: Basophils % 0.2 %; Eosinophils % 0.9 %; Hematocrit 28.7 % (42.0-52.0); Hemoglobin 9.5 g/dL (11.7-16.6); Lymphocytes # 0.6 10^3/uL (0.8-4.8); Lymphocytes % 13.4 %; Mean Corpuscular HGB Conc 33.1 g/dL (30.0-36.0); Mean Corpuscular Volume 96.6 fl (80-94); Mean Platelet Volume 11.3 fL (7.4-10.4); Monocytes # 0.3 10^3/uL (0.2-0.9); Monocytes % 7.2 %; Neutrophils # 3.66 10^3/uL (1.8-7.7); Neutrophils % 77.9 %; Nucleated Red Blood Cells % 0 %; Platelet Count 81 10^3/cmm (130-400); Red Blood Count 2.97 10^6/uL (4.1-5.3); Red Cell Distribution Width 19.3 % (12.1-15.1); White Blood Count 4.7 10^3/uL (4.0-10.0)
[2022-09-16] MEDS: albumin 25 G/100 ML BAG 60 G IV ×3 (03:41→17:30)
[2022-09-16 03:49] LABS: Alanine Aminotransferase 16 U/L (0-41); Alkaline Phosphatase 105 U/L (40-130); Anion Gap 12.3 (5-19); Aspartate Amino Transferase 13 U/L (0-40); Blood Urea Nitrogen 16 mg/dL (8-23); Calcium 7.7 mg/dL (8.5-10.5); Carbon Dioxide 19 mmol/L (22-29); Chloride 111 mmol/L (98-107); Globulin 1.6 g/dL (1.3-4.6); Glomerular Filtration Rate 98.6 mL/min (90-130); Glucose 134 mg/dL (65-115); Osmolality Calculated 291 mOsm/kg (285-295); Potassium 3.3 mmol/L (3.5-5.1); Sodium 139 mmol/L (136-145); Total Bilirubin 1.7 mg/dL (0.15-1.2); Total Protein 4.6 g/dL (6.6-8.7)
[2022-09-16] MEDS: meropenem 1,000 MG in sodium chloride 0.9% (plus) 50 ML 100 MG IV ×3 (03:51→20:08)
[2022-09-16 03:56] LABS: Glucose Point of Care 134 mg/dL (70-110)
[2022-09-16 04:22] LABS: ABG PCO2 33.4 mmHg (35-45); ABG PH Result 7.38 (7.35-7.45); Alveolar-Arterial Oxygen Gradi 11.8 mmHg (5-10); Arterial Blood Gas Hematocrit 18.3 % (42-52); Base Excess ABG -5.2 mmol/L (-2.0-2.0); Blood Gas Operator Identificat JB; Blood Gas Sample Site Not specified; Blood Gas Sample Type Arterial; Blood Gas Tidal Volume 0.45; Carboxyhemoglobin 1.5 %THgb (0.4-20.1); HCO3 ABG 19.5 mmol/L (22-26); HGB O2 Sat 93.7 % (95-100); Ionized Calcium Level - ABG 1.2 mmol/L (1.1-1.4); Methemoglobin 2.1 % (0.4-1.5); Oxygen Device VENT; Oxygen Saturation ABG 97.2; Potassium Level - ABG 2.9 mmol/L (3.5-5.0)
[2022-09-16] MEDS: heparin 5,000 unit/mL INJ 1 mL 5000 UNIT SUBCUT (06:07)
[2022-09-16] MEDS: sertraline 50 mg Tablet PO (06:07)
[2022-09-16] MEDS: gabapentin 100 mg Capsule PO (09:18)
[2022-09-16] MEDS: dextrose 5%-sod chloride 0.9% 1,000 ML 100 ML IV ×3 (09:19→20:55)
[2022-09-16] MEDS: FUROsemide 10 mg/mL SDV 4mL 40 MG IVP (10:34)
[2022-09-16] MEDS: lidocaine 1% 5 ML in potassium chloride premix 100 ML 26.25 ML IV ×2 (10:35→15:35)
[2022-09-16 10:51] LABS: Glucose Point of Care 133 mg/dL (70-110)
--- NOTE | 2022-09-16 16:01 | P.PN_ITS ---
Subjective Subjective: Patient seen multiple times in the day. No acute events overnight. Patient has remained hemodynamically stable and afebrile. Tmax in last 24 hours 99 Fahrenheit. Documented urine output in last 24 hours 1250. Patient overall around 9 L positive. Currently on examination he is on Precedex at 1.1, propofol of 15 and fentanyl 150. During the day sedation is turned down and fentanyl and propofol are turned off while Precedex is continued. Patient was initially in the morning on ventilator setting of tidal volume 450, PEEP of 6, FiO2 30%. During the day do not pressure support of 10 which he tolerated well though he continued to have low slow breathing but did not have any apneic events. Decision was made to continue mechanical ventilation for 1 more day with possible trial of extubation in a.m. tomorrow. Family at bedside. Vitals/I&O/Wt Last Vital Signs Temp 97.9 F 09/16/22 10:30 Pulse 63 09/16/22 15:15 Resp 10 L 09/16/22 15:46 BP 110/59 09/16/22 15:15 Pulse Ox 98 09/16/22 15:46 O2 Del Method 09/15/22 18:00 O2 Flow Rate 2 09/12/22 20:10 FiO2 30 09/16/22 15:46 09/16/22 09/16/22 09/16/22 06:59 14:59 22:59 Intake Total 1352.978 / 2984.122 1433.732 / 1433.732 Output Total 650 / 1250 Balance 702.978 / 1453.663 1023.732 / 1433.732 Weight last 48 hrs Weight 102.557 kg Weight 102.512 kg Physical Exam Narrative: Intubated sedated on mechanical ventilation. Const: COMMON NORMALS: average body habitus GENERAL APPEARANCE: well hydrated NUTRITIONAL APPEARANCE: overweight ORIENTATION/CONSCIOUSNESS: Yes Other orientation findings (Sedated, intubated) HENMT: COMMON NORMALS: normocephalic and atraumatic HEAD & SCALP: normocephalic and atraumatic Resp: COMMON NORMALS: normal respiratory effort, No retractions, No use of accessory muscles and clear to auscultation bilaterally EFFORT & INSPECTION: Yes symmetric chest movement AUSCULTATION: clear to auscultation bilaterally Cardio: COMMON NORMALS: Peripheral pulses 2+ throughout PERIPHERAL PULSES: Peripheral pulses 2+ throughout GI: COMMON NORMALS: Soft to palpation and No hepatosplenomegaly present AUSCULTATION: Yes normoactive bowel sounds PALPATION: Yes Soft to palpation and Yes No hepatosplenomegaly present RECTAL EXAM: Yes deferred Extremity: COMMON NORMALS: no clubbing, cyanosis or edema and no pedal edema Urinary Catheter Management: Nuñez: Cath Placed During This Visit: yes Reason for Continuing Indwelling Catheter: Accurate Measurement of Urinary Output in Critically Ill Patients Urinary Catheter Date of Insertion: 09/12/22 Urinary Catheter Time of Insertion: 16:26 Data 09/16/22 03:07 09/16/22 03:07 Micro: Microbiology 09/13/22 10:31 Gram Stain - Final Sputum - Endotracheal Tube Aspirate Sputum Culture - Final Escherichia coli esbl A&P Assessment and plan (1) Septic shock: (2) Infection due to ESBL-producing Klebsiella pneumoniae: (3) Small bowel obstruction: (4) S/P exploratory laparotomy: (5) Thrombocytopenia: Thrombocytopenia along with leukopenia yesterday. Thrombocytopenia is improving. Leukopenia has resolved. Hold off on heparin. Monitor for bleeding. Hemoglobin stable. (6) DEMETRIS (acute kidney injury): (7) Hyponatremia: (8) Metabolic acidosis: (9) Lactic acid acidosis: (10) Atrial fibrillation: Takes Eliquis 5 mg twice daily at home along with metoprolol. Eliquis withheld currently given thrombocytopenia and postoperative status. If thrombocytopenia improves will restart Eliquis. (11) Hyperphosphatemia: (12) Hypomagnesemia: (13) Hypocalcemia: Serum calcium for hypoalbuminemia: 7.9 Will give 1 g calcium chloride IV Monitor serum calcium (14) CAD (coronary artery disease): Plan 61 year old male with a past medical history of CAD status post stenting x10, noninsulin-dependent type 2 diabetes mellitus, hypertension, status post ICD placement, history of ventricular tachycardia, history of sick sinus syndrome, depression, atrial fibrillation was on Eliquis and has been out of supply has not taken in the last 2 months, CVA 03/2022, was brought in today with chief complaint of abdominal pain nausea vomiting started 3 days back and since then it has progressively worsened, patient states that he was having hematemesis also Yesterday states a lot. Assessment: Small bowel obstruction: Post exploratory laparotomy day 3. Appreciate surgical recommendations. Keep NPO. Maintain NG tube. Abdominal series x-ray in a.m. Diet, bowel regimen as per surgical team. Shock: Septic versus hypovolemic. Resolved. Maintain mean arterial pressure over 65. Levophed weaned off. On admission patient was in metabolic acidosis, lactic acidosis with target organ dysfunction of acute kidney injury, respiratory failure requiring mechanical ventilation. DEMETRIS, metabolic acidosis lactic acidosis has resolved. MRSA negative, sputum culture growing ESBL E. coli. Stool studies not collected yet. Antibiotics changed from Zosyn to meropenem. Vancomycin stopped. Continue with IV fluids at 100 cc/h. Acute kidney injury: Baseline creatinine normal. Creatinine normalized now. Urine output improving but patient is around 10 L positive. IV Lasix 40 mg 1 time. Strict input output charting. Medical reconciliation done for nephrotoxic drugs. Abdominal scan rule out obstructive nephropathy. Maintain Nuñez catheter. Monitor BMP daily for now. Hyponatremia: Most likely hypovolemic. Resolved. IV fluid as above. Electrolyte abnormality/metabolic acidosis: Resolving. Monitor electrolytes. A-fib with RVR: Currently back in normal sinus rhythm. Amiodarone drip stopped earlier today morning because of mild bradycardia. Takes metoprolol at home which is currently on hold because of hypotension. Continue to monitor. If needed will start on amiodarone again and transition to oral. No need of therapeutic anticoagulation as A-fib for less than 48 hours. History of coronary artery disease status post stent: History of diabetes: Currently n.p.o. LDSSI every 6 hourly, monitor fingerstick glucose Sedation: Precedex and fentanyl Glycemic control: Low-dose sliding scale every 6 hourly Nutrition: NPO. NG tube in place. CODE STATUS: Full code PUD prophylaxis: Protonix DVT prophylaxis: Start heparin 5000 every 12 hourly. Discharge planning: We will plan once patient is extubated. Continue with care at ICU. Plan for the day: Sedation vacation. Put on complete ventilator support at around 8 PM. Plan to de-escalate sedation again early in the morning with possible extubation in a.m. tomorrow. Monitor BMP daily. IV Lasix 40 mg one-time. Strict input of charting. Continue psych medications including Seroquel 100 mg, sertraline of 50, tizanidine of 4 twice daily as needed. Take Seroquel 200 mg daily at home. Continue to hold off on the same for now. Thrombocytopenia improving. Holding off Eliquis currently given thrombocytopenia. Heparin started couple of days ago. For now we will hold off given concerns for possible HIT. If thrombocytopenia improves will restart home dose of Eliquis. This documentation was created by [employer] limousine rental clerk software. Every effort was made to ensure accuracy of limousine rental clerk. Any obvious errors or omissions should be clarified with the author of the document. Attestations Medical Necessity Statement*: Requires further hospitalization for management of respiratory failure in setting of ESBL E. coli pneumonia, small bowel obstruction post expiratory laparotomy, ventilator dependence, resolving acute kidney injury Procedures Arterial Line Size (Gauge): 20 Coding Level of Care Code Critical Care >/= 30 minutes Critical care time (in minutes): 60 The high probability of a clinically significant, sudden or life threatening deterioration, as referenced in this documentation, required my full and direct attention, intervention and personal management. The critical care time shown is in addition to time spent performing any reported separately billable procedures and includes the following: [x] Data and vital sign review and interpretation [x ] Patient assessment, examination and intervention [x] Medication orders and management [x] Patient/Family updates as able [x] Care Coordination and Documentation. Diagnoses Septic shock A41.9; R65.21 Infection due to ESBL-producing Klebsiella pneumoniae A49.8; Z16.12 Small bowel obstruction K56.609 S/P exploratory laparotomy Z98.890 Thrombocytopenia D69.6 DEMETRIS (acute kidney injury) N17.9 Hyponatremia E87.1 Metabolic acidosis E87.20 Lactic acid acidosis E87.20 Atrial fibrillation I48.91 Hyperphosphatemia E83.39 Hypomagnesemia E83.42 Hypocalcemia E83.51 CAD (coronary artery disease) I25.10
[2022-09-16 16:33] LABS: Glucose Point of Care 128 mg/dL (70-110)
[2022-09-16] MEDS: pantoprazole 40 mg SDV IVP (17:26)
--- NOTE | 2022-09-16 19:00 | PC.NURSE ---
Upon arrival to shift, Fentanyl was running @50mcg/hr.
[2022-09-16 21:40] LABS: Glucose Point of Care 130 mg/dL (70-110)
[2022-09-16] MEDS: quetiapine 100 mg Tablet PO (21:44)
[2022-09-16] MEDS: morphine 4 mg/mL SDV 1 mL 2 MG IVP (22:36)
--- NOTE | 2022-09-16 22:37 | PC.NURSE ---
PRN Morphine: Pt is intubated, unable tp verbalize pain. Pt appears to be uncomfortable, evidence by grimce, banging hands on bed rails, biting ET tube, elevated BP's. Asked pt if they were in pain. Pt shook head yes. Listed body locations, pt shook head yes at head . Pt shook head yes again when asked if pain was severe. PRN morphine given.
[2022-09-17] VITALS (101 sets, daily range): BP systolic 75–202; BP diastolic 54–136; PULSE 63–137; RESP 8–27; TEMP 36.6–37; O2SAT 71–100
[2022-09-17 04:04] LABS: Basophils % 0.2 %; Eosinophils # 0.1 10^3/uL (0.0-0.8); Eosinophils % 1.2 %; Hematocrit 26.9 % (42.0-52.0); Hemoglobin 8.8 g/dL (11.7-16.6); Lymphocytes # 0.7 10^3/uL (0.8-4.8); Lymphocytes % 17.8 %; Mean Corpuscular HGB Conc 32.7 g/dL (30.0-36.0); Mean Corpuscular Volume 97.8 fl (80-94); Mean Platelet Volume 12.1 fL (7.4-10.4); Monocytes # 0.3 10^3/uL (0.2-0.9); Monocytes % 7.8 %; Neutrophils # 2.98 10^3/uL (1.8-7.7); Neutrophils % 72.8 %; Nucleated Red Blood Cells % 0 %; Platelet Count 84 10^3/cmm (130-400); Red Blood Count 2.75 10^6/uL (4.1-5.3); Red Cell Distribution Width 19.2 % (12.1-15.1); White Blood Count 4.1 10^3/uL (4.0-10.0)
[2022-09-17 04:23] LABS: Alanine Aminotransferase 9 U/L (0-41); Albumin Level 3.3 g/dL (3.5-5.2); Alkaline Phosphatase 88 U/L (40-130); Anion Gap 10.9 (5-19); Aspartate Amino Transferase 10 U/L (0-40); Blood Urea Nitrogen 10 mg/dL (8-23); Calcium 7.9 mg/dL (8.5-10.5); Carbon Dioxide 20 mmol/L (22-29); Chloride 114 mmol/L (98-107); Globulin 1.5 g/dL (1.3-4.6); Glucose 137 mg/dL (65-115); Osmolality Calculated 293 mOsm/kg (285-295); Potassium 3.9 mmol/L (3.5-5.1); Sodium 141 mmol/L (136-145); Total Bilirubin 1.4 mg/dL (0.15-1.2); Total Protein 4.8 g/dL (6.6-8.7)
[2022-09-17 04:35] LABS: Glucose Point of Care 134 mg/dL (70-110)
[2022-09-17] MEDS: meropenem 1,000 MG in sodium chloride 0.9% (plus) 50 ML 100 MG IV ×3 (04:58→20:50)
--- NOTE | 2022-09-17 05:02 | PC.NURSE ---
SBP in the low 170's. Called Dr. Ruth @9060, no answer. Messaged shortly after, no answer. Called again @5260, new order to resume home medication Lisinopril 40 mg ONCE DAILY.
[2022-09-17 05:03] LABS: Blood Gas Operator Identificat JB; Blood Gas Sample Site Not specified; Blood Gas Sample Type Arterial; Blood Gas Tidal Volume 0.45; Ionized Calcium Level - ABG 1.2 mmol/L (1.1-1.4); Oxygen Device VENT; Potassium Level - ABG 3.7 mmol/L (3.5-5.0)
[2022-09-17 05:05] LABS: ABG PCO2 34.8 mmHg (35-45); Alveolar-Arterial Oxygen Gradi 9.6 mmHg (5-10); Arterial Blood Gas Hematocrit 14.8 % (42-52); Base Excess ABG -3.2 mmol/L (-2.0-2.0); Carboxyhemoglobin 1.4 %THgb (0.4-20.1); HCO3 ABG 21.4 mmol/L (22-26); HGB O2 Sat 95.1 % (95-100); Oxygen Saturation ABG 98.5; PO2 ABG 93.5 mmHg (80.0-100.0); Total Hemoglobin 4.8 g/dL (14-18)
[2022-09-17] MEDS: lisinopril 20 mg Tablet 40 MG PO (05:20)
--- NOTE | 2022-09-17 05:38 | PC.NURSE ---
Hgb on morning CBC and ABG came back @ 8.[address] Ruth notified of discrepancy. New order for stat H&H.
[2022-09-17 05:55] LABS: Hemoglobin 8.9 g/dL (11.7-16.6)
[2022-09-17] MEDS: sertraline 50 mg Tablet PO (06:06)
[2022-09-17] MEDS: chlorhexidine gluconate 4% Btl 118 mL 1 APPLIC TOPICAL (06:56)
[2022-09-17] MEDS: dextrose 5%-sod chloride 0.9% 1,000 ML 100 ML IV (07:30)
--- NOTE | 2022-09-17 08:07 | PC.NURSE ---
RT wants to extubate patient by 1100. Sedation continued to wean off.
--- NOTE | 2022-09-17 10:38 | XRR_ITS ---
PROCEDURE INFORMATION: Exam: XR Complete Acute Abdomen Series Including Chest Exam date and time: 09/17/2022 11:17 AM Age: 61 years old Clinical indication: Condition or disease; Other: Obstruction; Additional info: Bowel obstruction TECHNIQUE: Imaging protocol: Radiologic exam. Complete acute abdomen series, including 2 or more views of the abdomen and a single view chest. COMPARISON: CR (ABDOMEN, ) 09/12/2022 10:59 PM FINDINGS: Tubes, catheters and devices: NG tube tip extends to the diaphragmatic hiatus. There is a dual-lead AICD with leads positioned in the right atrium and right ventricle. There is a right internal jugular central venous catheter appropriately positioned with the tip in the lower SVC near the cavoatrial junction. Lungs: Low lung volumes. Mild patchy opacity in the lung bases suggests subsegmental atelectasis. Pleural spaces: There is no pleural effusion or pneumothorax. Heart/Mediastinum: Cardiomediastinal contours are unremarkable. Gastrointestinal tract: There is dilated gas-filled small bowel in the upper abdomen. Intraperitoneal space: No gross free air. Bones/joints: Moderate lower lumbar degenerative disease and multilevel upper lumbar vertebroplasty. Bilateral hip prosthesis noted. Soft tissues: Left ventral hernia repair and midline percy noted. XR/XR acute abdomen series 60498 IMPRESSION: 1. NG tube tip is at the diaphragmatic hiatus. The tube should be advanced 10-15 cm for ideal position. 2. Satisfactory right internal jugular central line position. 3. Low lung volumes and subsegmental atelectasis in the lung bases. 4. Persistent small bowel dilation.
[2022-09-17] MEDS: labetalol 5 mg/mL SDV 20mL 10 MG IVP (10:49)
[2022-09-17 10:55] LABS: Glucose Point of Care 120 mg/dL (70-110)
[2022-09-17] MEDS: magnesium hydroxide 30 mL UDC PO (12:37)
--- NOTE | 2022-09-17 13:41 | PC.SOCIAL ---
IMM update IMM updated with patient and at bedside. Copy PG 2 provided. Verbalized an understanding. Initialled, dated, timed, and placed in chart.
[2022-09-17] MEDS: morphine 4 mg/mL SDV 1 mL 2 MG IVP (13:45)
[2022-09-17] MEDS: tizanidine 4 mg Tablet PO (14:06)
--- NOTE | 2022-09-17 15:21 | P.PN_ITS ---
Subjective Subjective: Patient was seen multiple times in a day. Patient was successfully extubated to 2 to 3 L of nasal cannula. After extubation patient was fairly weak. Spouse at bedside. Patient states he came to the hospital because of throwing up and abdominal pain. Has remained afebrile. In the morning while sedation was of blood pressures were high for which his home dose of lisinopril was started and after that he received IV labetalol 10 mg 1 time. Documented urine output in last 24 hours around 3 L. Medications: Reviewed: Yes Vitals/I&O/Wt Last Vital Signs Temp 98.6 F 09/17/22 04:15 Pulse 120 H 09/17/22 14:00 Resp 18 09/17/22 14:00 BP 184/90 09/17/22 14:00 Pulse Ox 92 09/17/22 14:00 O2 Del Method 09/17/22 11:28 O2 Flow Rate 2 09/17/22 11:28 FiO2 30 09/17/22 09:30 09/17/22 09/17/22 09/17/22 06:59 14:59 22:59 Intake Total 1186.406 / 4614.139 257.428 / 257.428 Output Total 750 / 2950 Balance 436.406 / 1664.139 257.428 / 257.428 Weight last 48 hrs Weight 102.557 kg Physical Exam Narrative: . Const: COMMON NORMALS: average body habitus and patient oriented x3 GENERAL APPEARANCE: anxious and well hydrated NUTRITIONAL APPEARANCE: overweight ORIENTATION/CONSCIOUSNESS: Yes awake, Yes oriented to person, Yes oriented to place, Yes oriented to time and Yes Other orientation findings (Sedated, intubated) OTHER: Weak appearing HENMT: COMMON NORMALS: normocephalic and atraumatic HEAD & SCALP: normocephalic and atraumatic Resp: COMMON NORMALS: normal respiratory effort, No retractions, No use of accessory muscles and clear to auscultation bilaterally EFFORT & INSPECTION: Yes symmetric chest movement AUSCULTATION: clear to auscultation bilaterally Cardio: COMMON NORMALS: Peripheral pulses 2+ throughout PERIPHERAL PULSES: Peripheral pulses 2+ throughout GI: COMMON NORMALS: Soft to palpation and No hepatosplenomegaly present AUSCULTATION: Yes normoactive bowel sounds PALPATION: Yes Soft to palpation and Yes No hepatosplenomegaly present RECTAL EXAM: Yes deferred Extremity: COMMON NORMALS: no clubbing, cyanosis or edema and no pedal edema Neuro: COMMON NORMALS: patient oriented x3 SENSORIUM/ORIENTATION: Yes oriented to person, Yes oriented to place and Yes oriented to time Urinary Catheter Management: Nuñez: Cath Placed During This Visit: yes Reason for Continuing Indwelling Catheter: Accurate Measurement of Urinary Output in Critically Ill Patients Urinary Catheter Date of Insertion: 09/12/22 Urinary Catheter Time of Insertion: 16:26 Data 09/17/22 05:48 09/17/22 03:24 A&P Assessment and plan (1) Septic shock: (2) Infection due to ESBL-producing Klebsiella pneumoniae: (3) Small bowel obstruction: (4) S/P exploratory laparotomy: (5) Thrombocytopenia: Thrombocytopenia along with leukopenia yesterday. Thrombocytopenia is improving. Leukopenia has resolved. Hold off on heparin. Monitor for bleeding. Hemoglobin stable. (6) DEMETRIS (acute kidney injury): (7) Hyponatremia: (8) Metabolic acidosis: (9) Lactic acid acidosis: (10) Atrial fibrillation: Takes Eliquis 5 mg twice daily at home along with metoprolol. Eliquis withheld currently given thrombocytopenia and postoperative status. If thrombocytopenia improves will restart Eliquis. (11) Hyperphosphatemia: (12) Hypomagnesemia: (13) Hypocalcemia: Serum calcium for hypoalbuminemia: 7.9 Will give 1 g calcium chloride IV Monitor serum calcium (14) CAD (coronary artery disease): Plan 61 year old male with a past medical history of CAD status post stenting x10, noninsulin-dependent type 2 diabetes mellitus, hypertension, status post ICD placement, history of ventricular tachycardia, history of sick sinus syndrome, depression, atrial fibrillation was on Eliquis and has been out of supply has not taken in the last 2 months, CVA 03/2022, was brought in today with chief complaint of abdominal pain nausea vomiting started 3 days back and since then it has progressively worsened, patient states that he was having hematemesis also Yesterday states a lot. Assessment: Small bowel obstruction: Post exploratory laparotomy day 4. Appreciate surgical recommendations. Keep NPO. Check abdominal series. NG tube management as per surgical team. Shock: Septic versus hypovolemic. Resolved. Maintain mean arterial pressure over 65. Levophed weaned off. On admission patient was in metabolic acidosis, lactic acidosis with target organ dysfunction of acute kidney injury, respiratory failure requiring mechanical ventilation. DEMETRIS, metabolic acidosis lactic acidosis has resolved. MRSA negative, sputum culture growing ESBL E. coli. Stool studies not collected yet. Antibiotics changed from Zosyn to meropenem. Vancomycin stopped. ESBL E. coli pneumonia: Extubated on 09/17. Continue with meropenem to finish 7-day course of IV antibiotics overall. DuoNebs every 6 hours, budesonide twice daily. Oxygen supplementation keeping saturation over 90%. Incentive spirometry. Acute kidney injury: Baseline creatinine normal. Resolved. Urine output improving but patient is around 11 L positive. IV Lasix 20 mg 1 time. Strict input output charting. Medical reconciliation done for nephrotoxic drugs. Abdominal scan rule out obstructive nephropathy. Maintain Nuñez catheter. Monitor BMP daily for now. Hyponatremia: Most likely hypovolemic. Resolved. IV fluid as above. Electrolyte abnormality/metabolic acidosis: Resolving. Monitor electrolytes. A-fib with RVR: Currently back in normal sinus rhythm. Amiodarone drip stopped earlier today morning because of mild bradycardia. Takes metoprolol at home which is currently on hold because of hypotension. Continue to monitor. If needed will start on amiodarone again and transition to oral. No need of therapeutic anticoagulation as A-fib for less than 48 hours. History of coronary artery disease status post stent: History of diabetes: Currently n.p.o. LDSSI every 6 hourly, monitor fingerstick glucose Sedation: Not needed. Glycemic control: Low-dose sliding scale every 6 hourly Nutrition: NG tube removed. NPO. Advance as per speech therapy evaluation. CODE STATUS: Full code PUD prophylaxis: Protonix DVT prophylaxis: SCDs. Thrombocytopenia hence heparin was stopped. Discharge planning: We will decide as per physical therapy evaluation. Plan for discharge to home with home health versus SNF as per physical therapy evaluation. Continue with care at ICU. Plan for the day: Extubated on 09/17. Oxygen supplementation keeping saturation over 90%. Continue DuoNebs, budesonide. Start on incentive spirometry. Physical therapy evaluation. Out of bed to chair gradually. Speech therapy. Advance diet as per speech therapy. Continue with meropenem to finish antibiotic course for overall 7 days. Day 5 today. Abdominal series. High concerns for ileus than small bowel obstruction. NG tube removed as per surgical recommendation. Bowel regimen with senna Colace and milk of magnesia. Stop IV fluids. IV Lasix 20 mg 1 time. Check improper charting. Monitor BMP daily. Goal blood pressure less than 140/90 mmHg. Continue with home dose of lisinopril and metoprolol. Will uptitrate accordingly.-Blood pressure high can use labetalol as needed. Continue other chronic anxiety medications including Seroquel at 200 mg daily, sertraline 50 mg daily, tizanidine 4 mg as needed. Can continue Precedex at a lower dose for now. Thrombocytopenia stable. Hold off on starting Eliquis for now. Continue to monitor. This documentation was created by [employer] assistant county engineer software. Every effort was made to ensure accuracy of assistant county engineer. Any obvious errors or omissions should be clarified with the author of the document. Attestations Medical Necessity Statement*: Requires further hospitalization for management of ESBL E. coli pneumonia, postextubation care, small bowel obstruction, post exploratory laparotomy care, as patient gets speech and physical therapy evaluation. Procedures Arterial Line Size (Gauge): 20 Coding Level of Care Code Critical Care >/= 30 minutes Critical care time (in minutes): 60 The high probability of a clinically significant, sudden or life threatening deterioration, as referenced in this documentation, required my full and direct attention, intervention and personal management. The critical care time shown is in addition to time spent performing any reported separately billable procedures and includes the following: [x] Data and vital sign review and interpretation [x ] Patient assessment, examination and intervention [x] Medication orders and man agement [x] Patient/Family updates as able [x] Care Coordination and Documentation. Diagnoses Septic shock A41.9; R65.21 Infection due to ESBL-producing Klebsiella pneumoniae A49.8; Z16.12 Small bowel obstruction K56.609 S/P exploratory laparotomy Z98.890 Thrombocytopenia D69.6 DEMETRIS (acute kidney injury) N17.9 Hyponatremia E87.1 Metabolic acidosis E87.20 Lactic acid acidosis E87.20 Atrial fibrillation I48.91 Hyperphosphatemia E83.39 Hypomagnesemia E83.42 Hypocalcemia E83.51 CAD (coronary artery disease) I25.10
[2022-09-17] MEDS: FUROsemide 10 mg/mL SDV 2mL 20 MG IVP (15:31)
[2022-09-17] MEDS: ALPRAZolam 0.5 mg Tablet PO (15:31)
[2022-09-17 16:22] LABS: Glucose Point of Care 154 mg/dL (70-110)
[2022-09-17] MEDS: insulin lispro 100 unit/1 mL SUBCUT (16:22)
[2022-09-17] MEDS: pantoprazole 40 mg SDV IVP (17:40)
[2022-09-17] MEDS: sennosides-docusate Tablet 1 TAB PO (17:40)
--- NOTE | 2022-09-17 17:45 | PC.NURSE ---
Patient extubated at 1010 this morning. Patients bedside. Patients always in patients face and both seem very anxious. Patient requesting more anxiety medication. PRN order for xanax received and given per MAR. Patient currently on bipap
--- NOTE | 2022-09-17 18:16 | PM.PN ---
Subjective Subjective: Patient successfully extubated. He has had a bowel movement. I removed the NG tube Vitals/I&O/Wt Last Vital Signs Temp 98.6 F 09/17/22 04:15 Pulse 101 H 09/17/22 18:00 Resp 11 L 09/17/22 18:00 BP 167/85 09/17/22 18:00 Pulse Ox 94 09/17/22 18:00 O2 Del Method 09/17/22 11:28 O2 Flow Rate 2 09/17/22 11:28 FiO2 30 09/17/22 17:48 09/17/22 09/17/22 09/17/22 06:59 14:59 22:59 Intake Total 1186.406 / 4614.139 257.428 / 257.428 793.333 / 1050.761 Output Total 750 / 2950 1000 / 1000 Balance 436.406 / 1664.139 257.428 / 257.428 -206.667 / 50.761 Weight last 48 hrs Weight 226 lb 1.6 oz Physical Exam Narrative: General: No acute distress Abdomen: Soft, mildly distended, nontender Urinary Catheter Management: Nuñez: Cath Placed During This Visit: yes Reason for Continuing Indwelling Catheter: Accurate Measurement of Urinary Output in Critically Ill Patients Urinary Catheter Date of Insertion: 09/12/22 Urinary Catheter Time of Insertion: 16:26 Data 09/17/22 05:48 09/17/22 03:24 Micro: Microbiology 09/12/22 17:22 Blood Culture - Final Blood NO GROWTH AFTER 5 DAYS 09/12/22 17:13 Blood Culture - Final Blood NO GROWTH AFTER 5 DAYS A&P Assessment and plan (1) Small bowel obstruction: Plan No obstruction seen in the operating room NG tube removed He did not pass his swallow eval Clear liquids when passing swallow eval Medical management per hospitalist Attestations Medical Necessity Statement*: Requires further hospitalization for management of ESBL E. coli pneumonia, postextubation care, small bowel obstruction, post exploratory laparotomy care, as patient gets speech and physical therapy evaluation. Procedures Arterial Line Size (Gauge): 20 Coding Level of Care Code Acute Code for Chg Fwd Diagnoses Small bowel obstruction K56.609
[2022-09-17] MEDS: ipratropium-albuterol 3 mL Neb INHALATION (20:37)
[2022-09-17] MEDS: budesonide 0.5 mg/2 mL Neb INHALATION (20:37)
--- NOTE | 2022-09-17 20:42 | PC.NURSE ---
Addendum entered by Neena Orourke, RN 09/17/22 21:01: Telephone order read back for metoprolol IVP 5mg Q6H, hold for HR less than 60. Original Note: Metoprolol PO 25mg and Quetiapine PO 200 not given . Pt is NPO. NG tube removed by Dr. Rueda today. Dr. Ruth was updated. New order to change Metoprolol to IVP. Pharmacy aware.
[2022-09-17 21:01] LABS: ABG PCO2 51.6 mmHg (35-45); ABG PH Result 7.32 (7.35-7.45); Alveolar-Arterial Oxygen Gradi 7.7 mmHg (5-10); Arterial Blood Gas Hematocrit 43.4 % (42-52); Base Excess ABG -0.1 mmol/L (-2.0-2.0); Blood Gas Allen Test Pos; Blood Gas Operator Identificat JB; Blood Gas Sample Site Radial, right; Blood Gas Sample Type Arterial; HCO3 ABG 26.8 mmol/L (22-26); HGB O2 Sat 93.6 % (95-100); Ionized Calcium Level - ABG 1.2 mmol/L (1.1-1.4); Oxygen Device BIPAP; Oxygen Saturation ABG 94.6; PO2 ABG 92.3 mmHg (80.0-100.0); Potassium Level - ABG 4.1 mmol/L (3.5-5.0); Total Hemoglobin 14.2 g/dL (14-18)
[2022-09-17] MEDS: metoprolol tartrate 1 mg/1 mL SDV 5 mL 5 MG IVP (21:21)
[2022-09-17 21:29] LABS: Glucose Point of Care 93 mg/dL (70-110)
--- NOTE | 2022-09-17 21:59 | PC.NURSE ---
Addendum entered by Jazmin Garrison RN 09/17/22 22:13: 51 mL of Fentanyl wasted in sink with AFSHIN Chaudhary Original Note: Fentanyl removed from pt room. 51 ml wasted in sink w/ AFSHIN Wu.
[2022-09-18] VITALS (92 sets, daily range): BP systolic 100–218; BP diastolic 63–175; PULSE 84–113; RESP 10–43; TEMP 36.8–37.6; O2SAT 90–99
[2022-09-18] MEDS: ipratropium-albuterol 3 mL Neb INHALATION ×4 (02:50→21:08)
[2022-09-18] MEDS: metoprolol tartrate 1 mg/1 mL SDV 5 mL 5 MG IVP ×3 (03:17→14:19)
--- NOTE | 2022-09-18 03:34 | PC.NURSE ---
Addendum entered by Neena Orourke RN 09/18/22 05:02: BIPAP was removed @0300. Since removal of BIPAP pt has maintained SpO2 above 90% on NC 4L, breathing is shallow, labored, involving accessory muscle use, and grunting. Lung sounds continue to be crackled. Education reinforcement continued to be provided throughout the shift. Pt is A&Ox4. Original Note: Pt is refusing BIPAP. This RN and RT have thoroughly educated pt on the importance and purpose of the BIPAP mask. Pt is refusing mask. Pt is requesting medication to put him to sleep . This RN and RT thoroughly explained the safety issue w/ episodes of apnea and how the safety issues increase with refusal of the BIPAP. called the unit and told this RN, this hospital has no idea what they are doing, I don't understand any of this . was provided thorough education on the importance of the BIPAP mask and current plan for the night. Replied, He's claustrophobic, you are going to give him a heart attack, he's going to have a heart attack tonight . Education was reinforced. Pt requesting water. Education provided to pt about the importance of his NPO diet status and the results of his swallow study. Cold, moist mouth swabs were offered. called unit and said, Your trying to starve him . Thorough education provided to on the importance of NPO diet status and the results of his swallow study . Several times throughout the shift pt has been on the phone with his . During these times pts HR/BP are elevated. Efforts made to decrease stimuli (TV turned off, lights down, reposition pt for comfort, ect.). requested to speak to this RN one pts phone. said, Can't you just give him something to knock him out, I wish I was knocked out, I'm hallucinating right now, I wish I was there instead of you . Dr. Ruth has been made aware of the situation. New order for 25mg Benadryl IVP.
[2022-09-18] MEDS: diphenhydrAMINE 50 mg/mL SDV 1mL 25 MG IVP (03:49)
[2022-09-18] MEDS: lanolin oint 7 gm 1 APPLIC TOPICAL (03:57)
[2022-09-18] MEDS: ondansetron 2 mg/ML SDV 2 mL 4 MG IVP ×2 (04:06→20:09)
[2022-09-18 04:33] LABS: Glucose Point of Care 82 mg/dL (70-110)
[2022-09-18] MEDS: meropenem 1,000 MG in sodium chloride 0.9% (plus) 50 ML 100 MG IV ×3 (04:35→19:58)
[2022-09-18 05:15] LABS: Alanine Aminotransferase 13 U/L (0-41); Albumin Level 3.2 g/dL (3.5-5.2); Alkaline Phosphatase 119 U/L (40-130); Anion Gap 12.1 (5-19); Aspartate Amino Transferase 19 U/L (0-40); Blood Urea Nitrogen 7 mg/dL (8-23); Carbon Dioxide 26 mmol/L (22-29); Chloride 113 mmol/L (98-107); Globulin 2.2 g/dL (1.3-4.6); Glomerular Filtration Rate 169.6 mL/min (90-130); Glucose 89 mg/dL (65-115); Osmolality Calculated 301 mOsm/kg (285-295); Potassium 4.1 mmol/L (3.5-5.1); Sodium 147 mmol/L (136-145); Total Bilirubin 1.3 mg/dL (0.15-1.2); Total Protein 5.4 g/dL (6.6-8.7)
--- NOTE | 2022-09-18 05:33 | PC.NURSE ---
Elevated BP. Dr. Ruth made aware. New order for labetalol 10mg IVP ONCE.
[2022-09-18] MEDS: labetalol 5 mg/mL SDV 20mL 10 MG IVP (05:48)
--- NOTE | 2022-09-18 08:25 | PC.NURSE ---
Patient failed his speech eval trail. NPO
[2022-09-18] MEDS: budesonide 0.5 mg/2 mL Neb INHALATION ×2 (09:39→21:08)
--- NOTE | 2022-09-18 10:19 | PC.CHAP ---
Pastoral Care Encounter/Spiritual Assessment Type of Contact [] Declined secretary office clerk visit [] Patient/Family/Request visit [] Outpatient visit [] Follow-up visit [] Physician referral [] Code/Alert [x] Routine visit [] Staff referral [] Actively dying [x] Patient sleeping [] Family support [] [] Out of room [] Palliative care [] [] Receiving care in room [] Pre-surgical visit [] Trauma [] Long length of stay [x] ICU visit [] Other: Relational/Emotional Strength [] Patient feels connected with others/family/visitors/staff [] Distress [] Loneliness/isolation [] Abandonment Spirituality of Patient [] Person of Sherrie [] Attends Evangelical of their Sherrie [] Believes in Prayer [] Reads Bible or Samaritan materials [] There are Spiritual issues to be addressed Car Lot Attendant Interventions [x] Prayer [] Active listening [] Non-anxious presence [] Spiritual/emotional support [] Crisis/trauma care [] Spiritual counseling [] Bereavement support [] Provided bereavement packet [] Provided Bible/devotional materials [] Provided toy/stuffed animal, coloring book to patient or family member [] Provided Communion [] Anointing/[place] [] Salvation [x] Completed spiritual assessment [] Other: Impact on Illness or Injury [] Angry [] Fearful [] Anxious [] Often cries [] Exhaustion [] Unable to work [] Unable to attend pentecostal [] Unable to walk/stand [] Unable to read [] Unable to drive [] Unable to eat/drink [] Unable to sleep [] Unable to be with family [] Patient intubated [] Other: Summary Time spent with patient
[2022-09-18 10:39] LABS: Glucose Point of Care 88 mg/dL (70-110)
[2022-09-18] MEDS: magnesium hydroxide 30 mL UDC PO (11:10)
[2022-09-18] MEDS: FUROsemide 10 mg/mL SDV 4mL 40 MG IVP (11:11)
[2022-09-18] MEDS: dextrose 5%-sod chloride 0.45% 1,000 ML 100 ML IV ×2 (11:14→19:58)
[2022-09-18] MEDS: acetaminophen 325 mg Tablet 650 MG PO (12:36)
--- NOTE | 2022-09-18 12:52 | PM.PN ---
Subjective Subjective: Patient successfully extubated. He has had a bowel movement. He is talking now. He passed a swallow study last night but failed it again this morning Vitals/I&O/Wt Last Vital Signs Temp 99.7 F H 09/18/22 05:15 Pulse 109 H 09/18/22 12:00 Resp 27 H 09/18/22 12:00 BP 152/126 09/18/22 12:00 Pulse Ox 94 09/18/22 12:00 O2 Del Method 09/18/22 09:40 O2 Flow Rate 4 09/18/22 09:40 FiO2 30 09/18/22 02:52 09/17/22 09/18/22 09/18/22 22:59 06:59 14:59 Intake Total 843.333 / 1100.761 50 / 1150.761 50 / 50 Output Total 1000 / 1000 900 / 1900 Balance -156.667 / 100.761 -850 / -749.239 50 / 50 Weight last 48 hrs Weight 226 lb 12.8 oz Physical Exam Narrative: General: No acute distress Abdomen: Soft, mildly distended, nontender Urinary Catheter Management: Nuñez: Cath Placed During This Visit: yes Reason for Continuing Indwelling Catheter: Accurate Measurement of Urinary Output in Critically Ill Patients Urinary Catheter Date of Insertion: 09/12/22 Urinary Catheter Time of Insertion: 16:26 Data 09/17/22 05:48 09/18/22 04:28 Micro: Microbiology 09/12/22 17:22 Blood Culture - Final Blood NO GROWTH AFTER 5 DAYS 09/12/22 17:13 Blood Culture - Final Blood NO GROWTH AFTER 5 DAYS A&P Assessment and plan (1) Small bowel obstruction: Plan No obstruction seen in the operating room NG tube removed He did not pass his swallow eval Clear liquids when passing swallow eval Medical management per hospitalist Attestations Medical Necessity Statement*: Per primary Procedures Arterial Line Size (Gauge): 20 Coding Level of Care Code Acute Code for Chg Fwd Diagnoses Small bowel obstruction K56.609
[2022-09-18 13:04] LABS: ABG PH Result 7.28 (7.35-7.45); Arterial Blood Gas Hematocrit 31.2 % (42-52); Base Excess ABG -2.2 mmol/L (-2.0-2.0); Blood Gas Allen Test Pos; Blood Gas Operator Identificat CAK; Blood Gas Sample Site Radial, right; Blood Gas Sample Type Arterial; Carboxyhemoglobin 0.2 %THgb (0.4-20.1); HCO3 ABG 24.9 mmol/L (22-26); HGB O2 Sat 94.4 % (95-100); Ionized Calcium Level - ABG 1.3 mmol/L (1.1-1.4); Methemoglobin 1.1 % (0.4-1.5); Oxygen Device NC; Oxygen Saturation ABG 95.7; Potassium Level - ABG 4.5 mmol/L (3.5-5.0); Total Hemoglobin 10.2 g/dL (14-18)
--- NOTE | 2022-09-18 15:12 | P.PN_ITS ---
Subjective Subjective: No acute events overnight. Yesterday evening patient was getting anxious and mildly agitated after which he was started on mild Precedex drip and oral Xanax. After starting of medications patient became slightly obtunded and was found to be in hypercapnia and placed on BiPAP ventilation. Patient mentation improved overnight and he remove the BiPAP. He has remained on 4 L nasal cannula since then. Today morning on examination patient sitting up in chair. Worked slightly with physical therapy. Asking when he can eat. Asking if he can at least have some ice chips. We discussed in detail that patient is still aspirating and has not been cleared by speech therapy for safe ingestion of food. Patient verbalized understanding and is agreeable. As per the nurses patient's has also called multiple times and spoken to the nursing staff and likely aggressive manner asking for patient to be fed. We have explained to her multiple times that it would be unsafe for him to eat as he is not being cleared by speech therapy currently and he is not strong enough to prevent aspiration and there is a high likelihood of reintubation in that case. Otherwise patient has remained hemodynamically stable with Tmax of 99.7 Fahrenheit in last 24 hours. Documented urine output 100 and last 24 hours. Patient is overall 9 L positive. Medications: Reviewed: Yes Vitals/I&O/Wt Last Vital Signs Temp 99.7 F H 09/18/22 05:15 Pulse 101 H 09/18/22 14:32 Resp 20 H 09/18/22 14:27 BP 152/126 09/18/22 12:00 Pulse Ox 95 09/18/22 14:27 O2 Del Method 09/18/22 14:27 O2 Flow Rate 4 09/18/22 14:27 FiO2 30 09/18/22 02:52 09/18/22 09/18/22 09/18/22 06:59 14:59 22:59 Intake Total 50 / 1150.761 50 / 50 Output Total 900 / 1900 Balance -850 / -749.239 50 / 50 Weight last 48 hrs Weight 102.875 kg Physical Exam Narrative: . Const: COMMON NORMALS: average body habitus and patient oriented x3 GENERAL APPEARANCE: anxious and well hydrated NUTRITIONAL APPEARANCE: overweight ORIENTATION/CONSCIOUSNESS: Yes awake, Yes oriented to person, Yes oriented to place, Yes oriented to time and Yes Other orientation findings (Sedated, intubated) OTHER: Weak appearing HENMT: COMMON NORMALS: normocephalic and atraumatic HEAD & SCALP: normocephalic and atraumatic Resp: COMMON NORMALS: normal respiratory effort, No retractions, No use of accessory muscles and clear to auscultation bilaterally EFFORT & INSPECTION: Yes symmetric chest movement AUSCULTATION: clear to auscultation bilaterally Cardio: COMMON NORMALS: Peripheral pulses 2+ throughout PERIPHERAL PULSES: Peripheral pulses 2+ throughout GI: COMMON NORMALS: Soft to palpation and No hepatosplenomegaly present AUSCULTATION: Yes normoactive bowel sounds PALPATION: Yes Soft to palpation and Yes No hepatosplenomegaly present RECTAL EXAM: Yes deferred Extremity: COMMON NORMALS: no clubbing, cyanosis or edema and no pedal edema Neuro: COMMON NORMALS: patient oriented x3 SENSORIUM/ORIENTATION: Yes oriented to person, Yes oriented to place and Yes oriented to time Urinary Catheter Management: Nuñez: Cath Placed During This Visit: yes Reason for Continuing Indwelling Catheter: Accurate Measurement of Urinary Output in Critically Ill Patients Urinary Catheter Date of Insertion: 09/12/22 Urinary Catheter Time of Insertion: 16:26 Data 09/17/22 05:48 09/18/22 04:28 Micro: Microbiology 09/12/22 17:22 Blood Culture - Final Blood NO GROWTH AFTER 5 DAYS 09/12/22 17:13 Blood Culture - Final Blood NO GROWTH AFTER 5 DAYS A&P Assessment and plan (1) Infection due to ESBL-producing Klebsiella pneumoniae: (2) Small bowel obstruction: (3) S/P exploratory laparotomy: (4) Hypernatremia: Most likely secondary to dehydration from poor oral intake given patient has not been cleared by speech therapy and is at high risk of aspiration. Start on D5 half NS at 100 cc/h. IV Lasix 40 mg one-time. Repeat BMP in afternoon around 4 PM. (5) Thrombocytopenia: Thrombocytopenia along with leukopenia yesterday. Thrombocytopenia is improving. Leukopenia has resolved. Hold off on heparin. Monitor for bleeding. Hemoglobin stable. (6) Atrial fibrillation: Takes Eliquis 5 mg twice daily at home along with metoprolol. Eliquis withheld currently given thrombocytopenia and postoperative status. If thrombocytopenia improves will restart Eliquis. (7) DEMETRIS (acute kidney injury): Resolved. (8) CAD (coronary artery disease): (9) Anxiety and depression: (10) Septic shock: Resolved. (11) Hyponatremia: (12) Metabolic acidosis: (13) Lactic acid acidosis: (14) Hyperphosphatemia: (15) Hypomagnesemia: (16) Hypocalcemia: Serum calcium for hypoalbuminemia: 7.9 Will give 1 g calcium chloride IV Monitor serum calcium Plan 61 year old male with a past medical history of CAD status post stenting x10, noninsulin-dependent type 2 diabetes mellitus, hypertension, status post ICD placement, history of ventricular tachycardia, history of sick sinus syndrome, depression, atrial fibrillation was on Eliquis and has been out of supply has not taken in the last 2 months, CVA 03/2022, was brought in today with chief complaint of abdominal pain nausea vomiting started 3 days back and since then it has progressively worsened, patient states that he was having hematemesis also Yesterday states a lot. Assessment: Small bowel obstruction: Post exploratory laparotomy day 5. Appreciate surgical recommendations. NG tube removed as per surgical team. As per surgical team patient is okay to start on clear liquid diet once cleared by speech therapy. Continue with aggressive bowel regimen. Shock: Septic versus hypovolemic. Resolved. Maintain mean arterial pressure over 65. Levophed weaned off. On admission patient was in metabolic acidosis, lactic acidosis with target organ dysfunction of acute kidney injury, respiratory failure requiring mechanical ventilation. DEMETRIS, metabolic acidosis lactic acidosis has resolved. MRSA negative, sputum culture growing ESBL E. coli. Stool studies not collected yet. Antibiotics changed from Zosyn to meropenem. Vancomycin stopped. ESBL E. coli pneumonia: Extubated on 09/17. Continue with meropenem to finish 7-day course of IV antibiotics overall. DuoNebs every 6 hours, budesonide twice daily. Oxygen supplementation keeping saturation over 90%. Incentive spirometry and flutter valve. Acute kidney injury: Baseline creatinine normal. Resolved. D5 half NS at 100 cc/h along with IV Lasix 40 mg one-time. Strict input output charting. Medical reconciliation done for nephrotoxic drugs. Abdominal scan rule out obstructive nephropathy. Maintain Nuñez catheter. Monitor BMP daily for now. Hypernatremia: Most likely in setting of dehydration. IV fluids as above. Monitor BMP in afternoon. Electrolyte abnormality/metabolic acidosis: Resolving. Monitor electrolytes. A-fib with RVR: Currently back in normal sinus rhythm. Amiodarone drip stopped earlier today morning because of mild bradycardia. Takes metoprolol at home which is currently on hold because of hypotension. Continue to monitor. If needed will start on amiodarone again and transition to oral. No need of therapeutic anticoagulation as A-fib for less than 48 hours. History of coronary artery disease status post stent: History of diabetes: Currently n.p.o. LDSSI every 6 hourly, monitor fingerstick glucose Sedation: Not needed. Glycemic control: Low-dose sliding scale every 6 hourly Nutrition: NG tube removed. NPO. Advance as per speech therapy evaluation. CODE STATUS: Full code PUD prophylaxis: Protonix DVT prophylaxis: SCDs. Thrombocytopenia hence heparin was stopped. Discharge planning: We will decide as per physical therapy evaluation. Plan for discharge to home with home health versus SNF as per physical therapy evaluation. Continue with care at ICU. Plan for the day: Extubated on 09/17. Oxygen supplementation keeping saturation over 90%. Continue DuoNebs, budesonide. Start on incentive spirometry and flutter valve. Physical therapy evaluation. Out of bed to chair gradually. Advance diet per as per speech therapy. Continue with IV meropenem for now. NG tube removed. Start on clear liquids once cleared by speech therapy. Developing hypernatremia. D5 half NS as above along with IV Lasix. Monitor BMP every 12 hourly. Goal blood pressure less than 140/90 mmHg. Continue with home dose of lisinopril. Switch from metoprolol to Coreg 6.25 mg twice daily. Hydralazine as needed 5 mg every 4 hourly for blood pressure of more than 170 systolics. Continue other chronic anxiety medications including Seroquel at 200 mg daily, sertraline 50 mg daily, tizanidine 4 mg as needed. Can continue Precedex at a lower dose for now. Thrombocytopenia stable. Hold off on starting Eliquis for now. Continue to monitor. Do not hold any oral medication. Care discussed in detail with patient at bedside. He verbalized understanding and is agreeable for treatment plan. All the questions were answered. This documentation was created by [employer] machine heel sprayer software. Every effort was made to ensure accuracy of machine heel sprayer. Any obvious errors or omissions should be clarified with the author of the document. Attestations Medical Necessity Statement*: Requires further hospitalization for management of ESBL E. coli pneumonia, postextubation status, small bowel obstruction post exploratory laparotomy status, severe physical deconditioning while oral diet is advanced as per speech therapy, hypernatremia Procedures Arterial Line Size (Gauge): 20 and High Time for a total of 50 minutes, includes reviewing past or interval history, examining/interviewing patient, placing orders, counseling patient/family/other support, updating patient/family/other support, discussing plan of care with staff, communicating with other healthcare providers, documenting encounter and coordinating care Diagnoses Infection due to ESBL-producing Klebsiella pneumoniae A49.8; Z16.12 Small bowel obstruction K56.609 S/P exploratory laparotomy Z98.890 Hypernatremia E87.0 Thrombocytopenia D69.6 Atrial fibrillation I48.91 DEMETRIS (acute kidney injury) N17.9 CAD (coronary artery disease) I25.10 Anxiety and depression F41.9; F32.A Septic shock A41.9; R65.21 Hyponatremia E87.1 Metabolic acidosis E87.20 Lactic acid acidosis E87.20 Hyperphosphatemia E83.39 Hypomagnesemia E83.42 Hypocalcemia E83.51
[2022-09-18] MEDS: lisinopril 20 mg Tablet 40 MG PO (15:30)
--- NOTE | 2022-09-18 15:34 | PC.NURSE ---
Still giving PO medications per orders and MAR. Patient continues to cough with every medication.
[2022-09-18 16:28] LABS: Glucose Point of Care 133 mg/dL (70-110)
[2022-09-18 17:11] LABS: Alanine Aminotransferase 12 U/L (0-41); Albumin Level 3.2 g/dL (3.5-5.2); Alkaline Phosphatase 113 U/L (40-130); Anion Gap 12.9 (5-19); Aspartate Amino Transferase 18 U/L (0-40); Blood Urea Nitrogen 9 mg/dL (8-23); Calcium 8.7 mg/dL (8.5-10.5); Carbon Dioxide 27 mmol/L (22-29); Chloride 111 mmol/L (98-107); Glomerular Filtration Rate 137.4 mL/min (90-130); Glucose 135 mg/dL (65-115); Osmolality Calculated 305 mOsm/kg (285-295); Potassium 3.9 mmol/L (3.5-5.1); Sodium 147 mmol/L (136-145); Total Bilirubin 1.3 mg/dL (0.15-1.2); Total Protein 5.2 g/dL (6.6-8.7)
[2022-09-18] MEDS: sennosides-docusate Tablet 1 TAB PO (17:24)
[2022-09-18] MEDS: carvedilol 6.25 mg Tablet PO (17:24)
[2022-09-18] MEDS: pantoprazole 40 mg SDV IVP (17:31)
--- NOTE | 2022-09-18 17:33 | PC.NURSE ---
Patient very anxious most of shift, calling nonstop on personal cell phone, calling unit all day to complain about care received. Educated and patient multiple times about NPO status except for patient medications. angry with staff, server manager and warehouseman aware of situation.
[2022-09-18] MEDS: quetiapine 100 mg Tablet 200 MG PO (19:59)
[2022-09-18] MEDS: hyDRALAzine 20 mg/mL INJ 1 mL 10 MG IVP (19:59)
[2022-09-18 21:35] LABS: Glucose Point of Care 136 mg/dL (70-110)
[2022-09-19] VITALS (49 sets, daily range): BP systolic 95–184; BP diastolic 56–103; PULSE 81–124; RESP 9–28; TEMP 36.4–37; O2SAT 92–100
[2022-09-19] MEDS: ipratropium-albuterol 3 mL Neb INHALATION ×4 (02:30→20:11)
[2022-09-19 04:12] LABS: Basophils % 0.1 %; Hematocrit 25.7 % (42.0-52.0); Hemoglobin 8.1 g/dL (11.7-16.6); Lymphocytes # 0.8 10^3/uL (0.8-4.8); Lymphocytes % 9.2 %; Mean Corpuscular HGB Conc 31.5 g/dL (30.0-36.0); Mean Corpuscular Hemoglobin 32.4 pg (28.0-34.0); Mean Corpuscular Volume 102.8 fl (80-94); Mean Platelet Volume 11.8 fL (7.4-10.4); Monocytes # 0.7 10^3/uL (0.2-0.9); Monocytes % 7.6 %; Neutrophils # 7.14 10^3/uL (1.8-7.7); Neutrophils % 82.6 %; Nucleated Red Blood Cells % 0 %; Platelet Count 95 10^3/cmm (130-400); Red Cell Distribution Width 19.3 % (12.1-15.1); White Blood Count 8.7 10^3/uL (4.0-10.0)
[2022-09-19 04:23] LABS: Glucose Point of Care 120 mg/dL (70-110)
[2022-09-19] MEDS: meropenem 1,000 MG in sodium chloride 0.9% (plus) 50 ML 100 MG IV ×3 (04:25→20:03)
[2022-09-19 04:27] LABS: Alanine Aminotransferase 10 U/L (0-41); Albumin Level 2.9 g/dL (3.5-5.2); Alkaline Phosphatase 96 U/L (40-130); Aspartate Amino Transferase 18 U/L (0-40); Blood Urea Nitrogen 9 mg/dL (8-23); Calcium 8.5 mg/dL (8.5-10.5); Carbon Dioxide 30 mmol/L (22-29); Chloride 112 mmol/L (98-107); Globulin 2.1 g/dL (1.3-4.6); Glomerular Filtration Rate 169.6 mL/min (90-130); Glucose 113 mg/dL (65-115); Osmolality Calculated 303 mOsm/kg (285-295); Sodium 147 mmol/L (136-145); Total Bilirubin 0.8 mg/dL (0.15-1.2)
[2022-09-19] MEDS: sertraline 50 mg Tablet PO (05:59)
[2022-09-19] MEDS: hyDRALAzine 20 mg/mL INJ 1 mL 10 MG IVP (05:59)
[2022-09-19] MEDS: dextrose 5%-sod chloride 0.45% 1,000 ML 100 ML IV (07:37)
[2022-09-19] MEDS: lisinopril 20 mg Tablet 40 MG PO (08:15)
[2022-09-19] MEDS: sennosides-docusate Tablet 1 TAB PO ×2 (08:15→17:56)
[2022-09-19] MEDS: carvedilol 6.25 mg Tablet PO (08:16)
[2022-09-19] MEDS: dextrose 5% 1,000 ML 100 ML IV ×2 (08:23→17:56)
[2022-09-19] MEDS: FUROsemide 10 mg/mL SDV 10mL 60 MG IVP (08:24)
[2022-09-19] MEDS: budesonide 0.5 mg/2 mL Neb INHALATION ×2 (08:50→20:11)
--- NOTE | 2022-09-19 09:43 | PM.PN ---
Subjective Subjective: Patient successfully extubated. He has had a bowel movement. tolerating clear liquids Vitals/I&O/Wt Last Vital Signs Temp 97.6 F 09/19/22 09:00 Pulse 111 H 09/19/22 09:00 Resp 28 H 09/19/22 09:00 BP 169/81 09/19/22 09:00 Pulse Ox 97 09/19/22 09:00 O2 Del Method 09/19/22 09:00 O2 Flow Rate 3 09/19/22 09:00 FiO2 30 09/19/22 04:29 09/18/22 09/19/22 09/19/22 22:59 06:59 14:59 Intake Total 983.333 / 8865.863 0513 / 2083.333 Output Total 1550 / 1550 450 / 2000 Balance -566.667 / -516.667 600 / 83.333 Weight last 48 hrs Weight 227 lb 8.273 oz Weight 226 lb 12.8 oz Physical Exam Narrative: General: No acute distress Abdomen: Soft, mildly distended, nontender Urinary Catheter Management: Nuñez: Cath Placed During This Visit: yes Reason for Continuing Indwelling Catheter: Accurate Measurement of Urinary Output in Critically Ill Patients Urinary Catheter Date of Insertion: 09/12/22 Urinary Catheter Time of Insertion: 16:26 Data 09/19/22 03:40 09/19/22 03:40 A&P Assessment and plan (1) Small bowel obstruction: Plan No obstruction seen in the operating room Okay to advance diet Medical management per hospitalist Attestations Medical Necessity Statement*: per primary Procedures Arterial Line Size (Gauge): 20 Coding Level of Care Code Acute Code for Chg Fwd Diagnoses Small bowel obstruction K56.609
[2022-09-19 10:43] LABS: Glucose Point of Care 119 mg/dL (70-110)
--- NOTE | 2022-09-19 11:15 | PC.SOCIAL ---
IMM update IMM updated with patient at bedside. Copy of page 2 provided. Patient verbalized understanding. Copy in chart initialed, dated and timed.
[2022-09-19] MEDS: acetaminophen 325 mg Tablet 650 MG PO (14:21)
--- NOTE | 2022-09-19 16:42 | PM.PN ---
Subjective Subjective: Overnight it seems patient had mild confusion for which she was placed on BiPAP for 30 minutes after which his confusion was resolved and he asked for BiPAP to be removed. Today morning seen with spouse at bedside. Denies any nausea, vomiting, headache. Patient is more awake and alert. Able to have some conversation. States he has been working with incentive spirometry every hour. Currently on 3 L saturating more than 95%. Blood pressures continue to be elevated but better than yesterday. Documented urine output in last 24 hours 2 L documented. Otherwise has remained afebrile and hemodynamically stable. Medications: Reviewed: Yes Vitals/I&O/Wt Last Vital Signs Temp 98.3 F 09/19/22 13:30 Pulse 104 H 09/19/22 15:40 Resp 17 09/19/22 15:30 BP 162/100 09/19/22 15:30 Pulse Ox 99 09/19/22 15:30 O2 Del Method 09/19/22 15:30 O2 Flow Rate 3 09/19/22 15:30 FiO2 30 09/19/22 04:29 09/19/22 09/19/22 09/19/22 06:59 14:59 22:59 Intake Total 1050 / 2083.333 170 / 170 Output Total 450 / 2000 1999 / 1999 Balance 600 / 83.333 170 / 170 -2000 / -1830 Weight last 48 hrs Weight 103.2 kg Weight 102.875 kg Physical Exam Narrative: . Const: COMMON NORMALS: average body habitus and patient oriented x3 GENERAL APPEARANCE: anxious and well hydrated NUTRITIONAL APPEARANCE: overweight ORIENTATION/CONSCIOUSNESS: Yes awake, Yes oriented to person, Yes oriented to place, Yes oriented to time and Yes Other orientation findings (Sedated, intubated) OTHER: Weak appearing HENMT: COMMON NORMALS: normocephalic and atraumatic HEAD & SCALP: normocephalic and atraumatic Resp: COMMON NORMALS: normal respiratory effort, No retractions, No use of accessory muscles and clear to auscultation bilaterally EFFORT & INSPECTION: Yes symmetric chest movement AUSCULTATION: clear to auscultation bilaterally Cardio: COMMON NORMALS: Peripheral pulses 2+ throughout PERIPHERAL PULSES: Peripheral pulses 2+ throughout GI: COMMON NORMALS: Soft to palpation and No hepatosplenomegaly present AUSCULTATION: Yes normoactive bowel sounds PALPATION: Yes Soft to palpation and Yes No hepatosplenomegaly present RECTAL EXAM: Yes deferred Extremity: COMMON NORMALS: no clubbing, cyanosis or edema and no pedal edema Neuro: COMMON NORMALS: patient oriented x3 SENSORIUM/ORIENTATION: Yes oriented to person, Yes oriented to place and Yes oriented to time Urinary Catheter Management: Nuñez: Cath Placed During This Visit: yes Reason for Continuing Indwelling Catheter: Accurate Measurement of Urinary Output in Critically Ill Patients Urinary Catheter Date of Insertion: 09/12/22 Urinary Catheter Time of Insertion: 16:26 Data 09/19/22 03:40 09/19/22 03:40 A&P Assessment and plan (1) Infection due to ESBL-producing Klebsiella pneumoniae: (2) Small bowel obstruction: (3) S/P exploratory laparotomy: (4) Hypernatremia: Most likely secondary to dehydration from poor oral intake given patient has not been cleared by speech therapy and is at high risk of aspiration. Switch to D5W at 100 cc/h. Advance diet as per speech therapy. Will encourage patient to intake orally as much as possible. IV Lasix 60 mg one-time. Repeat BMP in evening. (5) Thrombocytopenia: Thrombocytopenia has remained stable. Leukopenia has resolved. We will start on heparin 5000 every 12 hourly for DVT prophylaxis. Monitor for bleeding. Hemoglobin stable. (6) Atrial fibrillation: Takes Eliquis 5 mg twice daily at home along with metoprolol. Eliquis withheld currently given thrombocytopenia and postoperative status. If thrombocytopenia improves will restart Eliquis. (7) DEMETRIS (acute kidney injury): Resolved. (8) CAD (coronary artery disease): (9) Anxiety and depression: (10) Septic shock: Resolved. (11) Hyponatremia: (12) Metabolic acidosis: (13) Lactic acid acidosis: (14) Hyperphosphatemia: (15) Hypomagnesemia: (16) Hypocalcemia: Serum calcium for hypoalbuminemia: 7.9 Will give 1 g calcium chloride IV Monitor serum calcium Plan 61 year old male with a past medical history of CAD status post stenting x10, noninsulin-dependent type 2 diabetes mellitus, hypertension, status post ICD placement, history of ventricular tachycardia, history of sick sinus syndrome, depression, atrial fibrillation was on Eliquis and has been out of supply has not taken in the last 2 months, CVA 03/2022, was brought in today with chief complaint of abdominal pain nausea vomiting started 3 days back and since then it has progressively worsened, patient states that he was having hematemesis also Yesterday states a lot. Assessment: Small bowel obstruction: Post exploratory laparotomy day 6. Appreciate surgical recommendations. NG tube removed as per surgical team. As per surgical team patient is okay to start on clear liquid diet once cleared by speech therapy. Continue with aggressive bowel regimen. Shock: Septic versus hypovolemic. Resolved. Maintain mean arterial pressure over 65. Levophed weaned off. On admission patient was in metabolic acidosis, lactic acidosis with target organ dysfunction of acute kidney injury, respiratory failure requiring mechanical ventilation. DEMETRIS, metabolic acidosis lactic acidosis has resolved. MRSA negative, sputum culture growing ESBL E. coli. Stool studies not collected yet. Antibiotics changed from Zosyn to meropenem. Vancomycin stopped. ESBL E. coli pneumonia: Extubated on 09/17. Continue with meropenem to finish 7-day course of IV antibiotics overall. DuoNebs every 6 hours, budesonide twice daily. Oxygen supplementation keeping saturation over 90%. Incentive spirometry and flutter valve. Acute kidney injury: Baseline creatinine normal. Resolved. D5 half NS at 100 cc/h along with IV Lasix 40 mg one-time. Strict input output charting. Medical reconciliation done for nephrotoxic drugs. Abdominal scan rule out obstructive nephropathy. Maintain Nuñez catheter. Monitor BMP daily for now. A-fib with RVR: Currently back in normal sinus rhythm. Amiodarone drip stopped earlier today morning because of mild bradycardia. Takes metoprolol at home which is currently on hold because of hypotension. Continue to monitor. If needed will start on amiodarone again and transition to oral. No need of therapeutic anticoagulation as A-fib for less than 48 hours. History of coronary artery disease status post stent: History of diabetes: LDSSI every 6 hourly, monitor fingerstick glucose Sedation: Not needed. Glycemic control: Low-dose sliding scale every 6 hourly Nutrition: Advance diet as per speech therapy. Aspiration precautions CODE STATUS: Full code PUD prophylaxis: Protonix DVT prophylaxis: SCDs. Restarting heparin 5000 every 12 hourly. Discharge planning: We will decide as per physical therapy evaluation. Plan for discharge to home with home health versus SNF as per physical therapy evaluation. Continue with care at ICU. Plan for the day: Continue meropenem. Last day of antibiotics today. Aggressive incentive spirometry and flutter valve. Out of bed to chair. Advance diet as per speech therapy. Aspiration precaution. Switch fluid from D5 half NS to D5W at 100 cc/h. Repeat BMP in evening. IV Lasix 60 mg one-time. Strict input output charting. Goal blood pressure less than 140/90 mmHg. Blood pressures slightly elevated. Increase Coreg to 12.5 twice daily. Add amlodipine 10 mg oral daily. Uptitrate as per blood pressure goals. Continue lisinopril 40 mg oral daily. Thrombocytopenia stable, hemoglobin stable. Restart heparin 5000 every 12 hourly. Monitor for hemoglobin drop. Continue chronic psych medications. Care discussed in detail with patient's spouse at bedside. All the questions were answered. This documentation was created by [employer] final expense agent software. Every effort was made to ensure accuracy of final expense agent. Any obvious errors or omissions should be clarified with the author of the document. Attestations Medical Necessity Statement*: Requires further hospitalization for management of extensive physical deconditioning in a patient with ESBL pneumonia, small bowel obstruction post exploratory laparotomy while diet is advanced as per speech therapy Procedures Arterial Line Size (Gauge): 20 and Moderate Time for a total of 55 minutes, includes reviewing past or interval history, examining/interviewing patient, placing orders, counseling patient/family/other support, updating patient/family/other support, discussing plan of care with staff, communicating with other healthcare providers, documenting encounter and coordinating care Diagnoses Infection due to ESBL-producing Klebsiella pneumoniae A49.8; Z16.12 Small bowel obstruction K56.609 S/P exploratory laparotomy Z98.890 Hypernatremia E87.0 Thrombocytopenia D69.6 Atrial fibrillation I48.91 DEMETRIS (acute kidney injury) N17.9 CAD (coronary artery disease) I25.10 Anxiety and depression F41.9; F32.A Septic shock A41.9; R65.21 Hyponatremia E87.1 Metabolic acidosis E87.20 Lactic acid acidosis E87.20 Hyperphosphatemia E83.39 Hypomagnesemia E83.42 Hypocalcemia E83.51
[2022-09-19] MEDS: amlodipine 10 mg Tablet PO (16:49)
[2022-09-19 16:50] LABS: Glucose Point of Care 122 mg/dL (70-110)
[2022-09-19] MEDS: carvedilol 12.5 mg Tablet PO (17:56)
[2022-09-19] MEDS: heparin 5,000 unit/mL INJ 1 mL 5000 UNIT SUBCUT (17:56)
[2022-09-19] MEDS: pantoprazole 40 mg SDV IVP (17:57)
[2022-09-19 18:35] LABS: Anion Gap 7.9 (5-19); Blood Urea Nitrogen 10 mg/dL (8-23); Calcium 8.9 mg/dL (8.5-10.5); Carbon Dioxide 34 mmol/L (22-29); Chloride 107 mmol/L (98-107); Glomerular Filtration Rate 169.6 mL/min (90-130); Glucose 124 mg/dL (65-115); Osmolality Calculated 300 mOsm/kg (285-295); Potassium 3.9 mmol/L (3.5-5.1); Sodium 145 mmol/L (136-145)
[2022-09-19] MEDS: quetiapine 100 mg Tablet 200 MG PO (20:04)
[2022-09-19 22:57] LABS: Glucose Point of Care 113 mg/dL (70-110)
[2022-09-20] VITALS (30 sets, daily range): BP systolic 108–158; BP diastolic 51–109; PULSE 77–121; RESP 10–29; TEMP 36.6–37.1; O2SAT 90–100
[2022-09-20] MEDS: dextrose 5% 1,000 ML 100 ML IV ×2 (03:23→16:05)
[2022-09-20] MEDS: ipratropium-albuterol 3 mL Neb INHALATION ×4 (03:34→19:58)
[2022-09-20 03:52] LABS: Basophils % 0.1 %; Eosinophils # 0.1 10^3/uL (0.0-0.8); Eosinophils % 0.8 %; Hematocrit 24.7 % (42.0-52.0); Hemoglobin 7.5 g/dL (11.7-16.6); Lymphocytes # 0.9 10^3/uL (0.8-4.8); Lymphocytes % 11.9 %; Mean Corpuscular HGB Conc 30.4 g/dL (30.0-36.0); Mean Corpuscular Hemoglobin 32.1 pg (28.0-34.0); Mean Corpuscular Volume 105.6 fl (80-94); Mean Platelet Volume 12.3 fL (7.4-10.4); Monocytes # 0.6 10^3/uL (0.2-0.9); Neutrophils # 6.08 10^3/uL (1.8-7.7); Neutrophils % 78.8 %; Nucleated Red Blood Cells % 0 %; Platelet Count 95 10^3/cmm (130-400); Red Blood Count 2.34 10^6/uL (4.1-5.3); Red Cell Distribution Width 19.3 % (12.1-15.1); White Blood Count 7.7 10^3/uL (4.0-10.0)
[2022-09-20 04:18] LABS: Alanine Aminotransferase 12 U/L (0-41); Albumin Level 2.8 g/dL (3.5-5.2); Alkaline Phosphatase 94 U/L (40-130); Anion Gap 7.9 (5-19); Aspartate Amino Transferase 19 U/L (0-40); Blood Urea Nitrogen 10 mg/dL (8-23); Calcium 8.4 mg/dL (8.5-10.5); Carbon Dioxide 33 mmol/L (22-29); Chloride 105 mmol/L (98-107); Glomerular Filtration Rate 169.6 mL/min (90-130); Glucose 108 mg/dL (65-115); Osmolality Calculated 294 mOsm/kg (285-295); Potassium 3.9 mmol/L (3.5-5.1); Sodium 142 mmol/L (136-145); Total Bilirubin 0.6 mg/dL (0.15-1.2); Total Protein 4.8 g/dL (6.6-8.7)
[2022-09-20 04:22] LABS: Glucose Point of Care 113 mg/dL (70-110)
[2022-09-20] MEDS: heparin 5,000 unit/mL INJ 1 mL 5000 UNIT SUBCUT ×2 (05:45→17:56)
[2022-09-20] MEDS: sertraline 50 mg Tablet PO (05:45)
[2022-09-20] MEDS: budesonide 0.5 mg/2 mL Neb INHALATION ×2 (08:54→19:58)
[2022-09-20 10:09] LABS: Glucose Point of Care 114 mg/dL (70-110)
[2022-09-20] MEDS: carvedilol 12.5 mg Tablet PO ×2 (10:10→17:56)
[2022-09-20] MEDS: magnesium hydroxide 30 mL UDC PO (10:10)
[2022-09-20] MEDS: amlodipine 10 mg Tablet PO (10:10)
[2022-09-20] MEDS: sennosides-docusate Tablet 1 TAB PO ×2 (10:11→17:56)
[2022-09-20] MEDS: lisinopril 20 mg Tablet 40 MG PO (10:32)
[2022-09-20] MEDS: acetaminophen 325 mg Tablet 650 MG PO ×2 (12:32→20:27)
--- NOTE | 2022-09-20 13:25 | PM.PN ---
Subjective Subjective: Passing flatus. he has had a bowel movement. tolerating clear liquids Vitals/I&O/Wt Last Vital Signs Temp 98.4 F 09/20/22 12:00 Pulse 95 09/20/22 13:00 Resp 20 H 09/20/22 13:00 BP 146/80 09/20/22 13:00 Pulse Ox 93 09/20/22 13:00 O2 Del Method 09/20/22 13:00 O2 Flow Rate 3 09/20/22 08:54 FiO2 2 09/20/22 13:00 09/19/22 09/20/22 09/20/22 22:59 06:59 14:59 Intake Total 1055 / 1225 945 / 2170 0 / 0 Output Total 1999 / 1999 500 / 2500 Balance -945 / -775 445 / -330 0 / 0 Weight last 48 hrs Weight 223 lb 8.78 oz Weight 227 lb 8.273 oz Physical Exam Narrative: General: No acute distress Abdomen: Soft, mildly distended, nontender Urinary Catheter Management: Nuñez: Cath Placed During This Visit: yes Reason for Continuing Indwelling Catheter: Accurate Measurement of Urinary Output in Critically Ill Patients Urinary Catheter Date of Insertion: 09/12/22 Urinary Catheter Time of Insertion: 16:26 Data 09/20/22 03:20 09/20/22 03:20 A&P Assessment and plan (1) Small bowel obstruction: Plan No obstruction seen in the operating room Soft diet Medical management per hospitalist Attestations Medical Necessity Statement*: Per Primary Procedures Arterial Line Size (Gauge): 20 Coding Level of Care Code Acute Code for [facility] Fwd Diagnoses Small bowel obstruction K56.609
[2022-09-20 16:24] LABS: Glucose Point of Care 106 mg/dL (70-110)
--- NOTE | 2022-09-20 17:30 | PM.PN ---
Subjective Subjective: No acute events overnight. Patient has remained hemodynamically stable and afebrile. On examination today on 2 L oxygen supplementation. Continues to get stronger. Sat up in the chair today with physical therapy for few hours. Diet advanced to GI soft as per swallow evaluation. Documented urine output in last 24 hours up to 2500 cc. Medications: Reviewed: Yes Vitals/I&O/Wt Last Vital Signs Temp 98.4 F 09/20/22 12:00 Pulse 88 09/20/22 16:00 Resp 21 H 09/20/22 16:00 BP 122/61 09/20/22 16:00 Pulse Ox 91 09/20/22 16:00 O2 Del Method 09/20/22 16:00 O2 Flow Rate 2 09/20/22 16:00 FiO2 2 09/20/22 13:00 09/20/22 09/20/22 09/20/22 06:59 14:59 22:59 Intake Total 945 / 2170 1000 / 1000 Output Total 500 / 2500 Balance 445 / -330 1000 / 1000 Weight last 48 hrs Weight 101.4 kg Weight 103.2 kg Physical Exam Narrative: . Const: COMMON NORMALS: average body habitus and patient oriented x3 GENERAL APPEARANCE: anxious and well hydrated NUTRITIONAL APPEARANCE: overweight ORIENTATION/CONSCIOUSNESS: Yes awake, Yes oriented to person, Yes oriented to place, Yes oriented to time and Yes Other orientation findings (Sedated, intubated) OTHER: Weak appearing HENMT: COMMON NORMALS: normocephalic and atraumatic HEAD & SCALP: normocephalic and atraumatic Resp: COMMON NORMALS: normal respiratory effort, No retractions, No use of accessory muscles and clear to auscultation bilaterally EFFORT & INSPECTION: Yes symmetric chest movement AUSCULTATION: clear to auscultation bilaterally Cardio: COMMON NORMALS: Peripheral pulses 2+ throughout PERIPHERAL PULSES: Peripheral pulses 2+ throughout GI: COMMON NORMALS: Soft to palpation and No hepatosplenomegaly present AUSCULTATION: Yes normoactive bowel sounds PALPATION: Yes Soft to palpation and Yes No hepatosplenomegaly present RECTAL EXAM: Yes deferred Extremity: COMMON NORMALS: no clubbing, cyanosis or edema and no pedal edema Neuro: COMMON NORMALS: patient oriented x3 SENSORIUM/ORIENTATION: Yes oriented to person, Yes oriented to place and Yes oriented to time Urinary Catheter Management: Nuñez: Cath Placed During This Visit: yes Reason for Continuing Indwelling Catheter: Accurate Measurement of Urinary Output in Critically Ill Patients Urinary Catheter Date of Insertion: 09/12/22 Urinary Catheter Time of Insertion: 16:26 Data 09/20/22 03:20 09/20/22 03:20 A&P Assessment and plan (1) Infection due to ESBL-producing Klebsiella pneumoniae: (2) Small bowel obstruction: (3) S/P exploratory laparotomy: (4) Hypernatremia: Resolved today. Most likely secondary to dehydration from poor oral intake given patient has not been cleared by speech therapy and is at high risk of aspiration. Stop IV fluids. Advance diet as per speech therapy. Will encourage patient to intake orally as much as possible. Hold off on Lasix today. Repeat BMP in a.m. (5) Thrombocytopenia: Thrombocytopenia has remained stable. Leukopenia has resolved. Continue with heparin 5000 every 12 hourly for DVT prophylaxis. Monitor for bleeding. Hemoglobin stable. (6) Atrial fibrillation: Takes Eliquis 5 mg twice daily at home along with metoprolol. Eliquis withheld currently given thrombocytopenia and postoperative status. If thrombocytopenia improves will restart Eliquis. (7) DEMETRIS (acute kidney injury): Resolved. (8) CAD (coronary artery disease): (9) Anxiety and depression: (10) Septic shock: Resolved. (11) Hyponatremia: (12) Metabolic acidosis: (13) Lactic acid acidosis: (14) Hyperphosphatemia: (15) Hypomagnesemia: (16) Hypocalcemia: Serum calcium for hypoalbuminemia: 7.9 Will give 1 g calcium chloride IV Monitor serum calcium Plan 61 year old male with a past medical history of CAD status post stenting x10, noninsulin-dependent type 2 diabetes mellitus, hypertension, status post ICD placement, history of ventricular tachycardia, history of sick sinus syndrome, depression, atrial fibrillation was on Eliquis and has been out of supply has not taken in the last 2 months, CVA 03/2022, was brought in today with chief complaint of abdominal pain nausea vomiting started 3 days back and since then it has progressively worsened, patient states that he was having hematemesis also Yesterday states a lot. Assessment: Small bowel obstruction: Post exploratory laparotomy day 7. Appreciate surgical recommendations. NG tube removed as per surgical team. As per surgical team patient is okay to start on clear liquid diet once cleared by speech therapy. Continue with aggressive bowel regimen. Shock: Septic versus hypovolemic. Resolved. Maintain mean arterial pressure over 65. Levophed weaned off. On admission patient was in metabolic acidosis, lactic acidosis with target organ dysfunction of acute kidney injury, respiratory failure requiring mechanical ventilation. DEMETRIS, metabolic acidosis lactic acidosis has resolved. MRSA negative, sputum culture growing ESBL E. coli. Stool studies not collected yet. Antibiotics changed from Zosyn to meropenem. Vancomycin stopped. ESBL E. coli pneumonia: Extubated on 09/17. Continue with meropenem to finish 7-day course of IV antibiotics overall. DuoNebs every 6 hours, budesonide twice daily. Oxygen supplementation keeping saturation over 90%. Incentive spirometry and flutter valve. Acute kidney injury: Baseline creatinine normal. Resolved. D5 half NS at 100 cc/h along with IV Lasix 40 mg one-time. Strict input output charting. Medical reconciliation done for nephrotoxic drugs. Abdominal scan rule out obstructive nephropathy. Maintain Nuñez catheter. Monitor BMP daily for now. A-fib with RVR: Currently back in normal sinus rhythm. Amiodarone drip stopped earlier today morning because of mild bradycardia. Takes metoprolol at home which is currently on hold because of hypotension. Continue to monitor. If needed will start on amiodarone again and transition to oral. No need of therapeutic anticoagulation as A-fib for less than 48 hours. History of coronary artery disease status post stent: History of diabetes: LDSSI every 6 hourly, monitor fingerstick glucose Sedation: Not needed. Glycemic control: Low-dose sliding scale every 6 hourly Nutrition: Advance diet as per speech therapy. Aspiration precautions CODE STATUS: Full code PUD prophylaxis: Protonix DVT prophylaxis: SCDs. Restarting heparin 5000 every 12 hourly. Continue with care at ICU. Plan for the day: Patient finished course of meropenem on 09/19. Patient has finished course of IV antibiotics for ESBL pneumonia. Continue with aggressive pulmonary toilet with I-S and flutter valve. Out of bed to chair. Advance diet as per speech therapy. GI soft diet. Stop IV fluids. Remove Nuñez. Monitor for hypernatremia and stopping fluids. Aspiration precautions. Blood pressure is better. Continue with Coreg 12.5 mg twice daily, lisinopril 40 mg oral daily and amlodipine 10 mg. Decrease home dose of Seroquel to 150 mg daily. Continue other psych medications as before. Thrombocytopenia stable. Continue with heparin 5000 every 12 hourly. Monitor for anemia. Most likely can transfer out of ICU within next 24 hours. Discharge planning: Plan to discharge to SNF. Awaiting level 2. Care discussed in detail with patient's spouse at bedside. All the questions were answered. This documentation was created by [employer] reeling operator software. Every effort was made to ensure accuracy of reeling operator. Any obvious errors or omissions should be clarified with the author of the document. Attestations Medical Necessity Statement*: Requires further hospitalization for management of ESBL pneumonia, severe physical deconditioning, high risk for aspiration pneumonia as diet is gradually advanced, small bowel obstruction post exploratory laparotomy by safe discharge planning is sought. Procedures Arterial Line Size (Gauge): 20 and Moderate Time for a total of 60 minutes, includes reviewing past or interval history, examining/interviewing patient, placing orders, counseling patient/family/other support, updating patient/family/other support, discussing plan of care with staff, communicating with other healthcare providers, documenting encounter and coordinating care Diagnoses Infection due to ESBL-producing Klebsiella pneumoniae A49.8; Z16.12 Small bowel obstruction K56.609 S/P exploratory laparotomy Z98.890 Hypernatremia E87.0 Thrombocytopenia D69.6 Atrial fibrillation I48.91 DEMETRIS (acute kidney injury) N17.9 CAD (coronary artery disease) I25.10 Anxiety and depression F41.9; F32.A Septic shock A41.9; R65.21 Hyponatremia E87.1 Metabolic acidosis E87.20 Lactic acid acidosis E87.20 Hyperphosphatemia E83.39 Hypomagnesemia E83.42 Hypocalcemia E83.51
[2022-09-20] MEDS: pantoprazole 40 mg SDV IVP (17:55)
[2022-09-20] MEDS: quetiapine 100 mg Tablet 150 MG PO (20:27)
[2022-09-20] MEDS: ondansetron 2 mg/ML SDV 2 mL 4 MG IVP (20:35)
[2022-09-20 23:49] LABS: Glucose Point of Care 127 mg/dL (70-110)
[2022-09-21] VITALS (31 sets, daily range): BP systolic 90–181; BP diastolic 51–101; PULSE 75–109; RESP 14–28; TEMP 36.7–37.7; O2SAT 91–100
--- NOTE | 2022-09-21 01:06 | PC.NURSE ---
Unable to accurately measure urine output. Nuñez catheter removed on dayshift. Pt unable to use urinal, incontinent. Unable to get to bedside commode. 1 void.
[2022-09-21] MEDS: ipratropium-albuterol 3 mL Neb INHALATION ×4 (03:12→20:30)
[2022-09-21 03:31] LABS: Basophils % 0.4 %; Eosinophils # 0.1 10^3/uL (0.0-0.8); Eosinophils % 1.1 %; Hematocrit 25.4 % (42.0-52.0); Hemoglobin 7.9 g/dL (11.7-16.6); Lymphocytes # 0.7 10^3/uL (0.8-4.8); Mean Corpuscular HGB Conc 31.1 g/dL (30.0-36.0); Mean Corpuscular Hemoglobin 33.1 pg (28.0-34.0); Mean Corpuscular Volume 106.3 fl (80-94); Mean Platelet Volume 12.3 fL (7.4-10.4); Monocytes # 0.5 10^3/uL (0.2-0.9); Monocytes % 8.7 %; Neutrophils # 4.04 10^3/uL (1.8-7.7); Neutrophils % 76.4 %; Nucleated Red Blood Cells % 0 %; Platelet Count 88 10^3/cmm (130-400); Red Blood Count 2.39 10^6/uL (4.1-5.3); Red Cell Distribution Width 18.1 % (12.1-15.1); White Blood Count 5.3 10^3/uL (4.0-10.0)
[2022-09-21 03:38] LABS: Glucose Point of Care 109 mg/dL (70-110)
[2022-09-21 03:52] LABS: Alanine Aminotransferase 11 U/L (0-41); Albumin Level 2.8 g/dL (3.5-5.2); Alkaline Phosphatase 94 U/L (40-130); Anion Gap 7.8 (5-19); Aspartate Amino Transferase 17 U/L (0-40); Blood Urea Nitrogen 11 mg/dL (8-23); Calcium 8.3 mg/dL (8.5-10.5); Carbon Dioxide 35 mmol/L (22-29); Chloride 101 mmol/L (98-107); Globulin 2.1 g/dL (1.3-4.6); Glomerular Filtration Rate 219.4 mL/min (90-130); Glucose 103 mg/dL (65-115); Osmolality Calculated 290 mOsm/kg (285-295); Potassium 3.8 mmol/L (3.5-5.1); Sodium 140 mmol/L (136-145); Total Bilirubin 0.6 mg/dL (0.15-1.2); Total Protein 4.9 g/dL (6.6-8.7)
[2022-09-21] MEDS: sertraline 50 mg Tablet PO (06:28)
[2022-09-21] MEDS: heparin 5,000 unit/mL INJ 1 mL 5000 UNIT SUBCUT ×2 (06:28→17:15)
--- NOTE | 2022-09-21 08:53 | XRR_ITS ---
PROCEDURE INFORMATION: Exam: XR Chest Exam date and time: 09/21/2022 8:56 AM Age: 61 years old Clinical indication: Cough; Additional info: R/O aspiration TECHNIQUE: Imaging protocol: Radiologic exam of the chest. Views: 1 view. COMPARISON: CR XR acute abdomen series [id number] 09/17/2022 11:17 AM FINDINGS: Tubes, catheters and devices: Right-sided central venous line noted with the distal tip in the right atrium. Left-sided cardiac device noted. Lungs: Ground-glass opacities in the lungs slightly more prominent on the right versus the left. Low lung volumes. Pleural spaces: No pneumothorax. No pleural effusion. Heart/Mediastinum: The cardiomediastinal silhouette is within normal limits. Diaphragm: Elevated hemidiaphragms.. Bones/joints: Possible post vertebroplasty changes noted in the thoracolumbar spine. Irregularity in the proximal right humerus likely related to old fracture. XR/XR chest 1V portable [id number] IMPRESSION: Ground-glass opacities in the lungs slightly more prominent on the right versus the left. Findings could be related to airspace disease versus atelectasis/low lung volumes.
--- NOTE | 2022-09-21 08:53 | PC.NURSE ---
New Orders Received Dr. Inman at bedside, gave verbal orders to insert gorman catheter for diuretic administration & obtain x-ray of chest.
[2022-09-21] MEDS: budesonide 0.5 mg/2 mL Neb INHALATION ×2 (09:34→20:30)
[2022-09-21] MEDS: FUROsemide 10 mg/mL SDV 4mL 40 MG IVP (10:49)
[2022-09-21] MEDS: scopolamine 1.5 Patch 1 PATCH TRANSDERMA (10:49)
[2022-09-21 12:29] LABS: Glucose Point of Care 94 mg/dL (70-110)
--- NOTE | 2022-09-21 13:33 | PM.PN ---
Subjective Subjective: Patient had another episode of aspiration this morning I requested chest x-ray Patient was very drowsy he has received Zyprexa overnight However hemodynamically stable currently on 2 L of oxygen Fluid overloaded He was given Lasix this morning Vitals/I&O/Wt Last Vital Signs Temp 99.8 F H 09/21/22 10:00 Pulse 97 09/21/22 10:00 Resp 23 H 09/21/22 10:00 BP 149/95 09/21/22 10:00 Pulse Ox 93 09/21/22 10:00 O2 Del Method 09/21/22 10:00 O2 Flow Rate 2 09/21/22 10:00 FiO2 2 09/20/22 13:00 09/20/22 09/21/22 09/21/22 22:59 06:59 14:59 Intake Total 291.667 / 1291.667 50 / 1341.667 Output Total 400 / 400 Balance -108.333 / 891.667 50 / 941.667 Weight last 48 hrs Weight 101.559 kg Weight 101.4 kg Physical Exam Narrative: Very lethargic and fatigued Currently on 2 L Hemodynamic stable Fluid overloaded with swelling of extremities S1, S2 Distended abdomen nontender Nuñez catheter has been removed Patient able to follow commands however very lethargic Upper airway secretions with resonance Urinary Catheter Management: Nuñez: Cath Placed During This Visit: yes, but has since been removed by the nurse Reason for Continuing Indwelling Catheter: Not indwelling catheter Urinary Catheter Date of Insertion: 09/21/22 Urinary Catheter Time of Insertion: 11:00 Date Urinary Catheter Removed: 09/20/22 Time Urinary Catheter Discontinued: 15:00 Data 09/21/22 03:04 09/21/22 03:04 A&P Assessment and plan (1) Anxiety and depression: (2) Hypernatremia: (3) Thrombocytopenia: (4) Infection due to ESBL-producing Klebsiella pneumoniae: (5) S/P exploratory laparotomy: (6) DEMETRIS (acute kidney injury): Plan Small bowel obstruction: Post exploratory laparotomy day 8.. Continue with aggressive bowel regimen. RE EVAL by SPEECH THERAPHY, had another aspiration event today Shock: Septic versus hypovolemic.? Resolved. Discontinue IVF pt clinically is fluid overloaded + fluid balance 10 L start IV lasix ESBL E. coli pneumonia: Extubated on 09/17. resume Carbapenam 7- 10 day regimen Recurrent aspiration events Acute kidney injury:?Resolved Off IVF A-fib with RVR: Currently back in normal sinus rhythm. ANticoagulation is on hold Amiodarone drip stopped start low dose AV angelica blocking agent . No need of therapeutic anticoagulation as A-fib for less than 48 hours. for sepsis induced arrythmia History of coronary artery disease status post stent: History of diabetes: SSI every 6 hourly, monitor fingerstick glucose FULL Porter. Disposition NH once stable Attestations Medical Necessity Statement*: Continue with care at ICU. Procedures Arterial Line Size (Gauge): 20 Coding Level of Care Code 80619 Diagnoses Anxiety and depression F41.9; F32.A Hypernatremia E87.0 Thrombocytopenia D69.6 Infection due to ESBL-producing Klebsiella pneumoniae A49.8; Z16.12 S/P exploratory laparotomy Z98.890 DEMETRIS (acute kidney injury) N17.9
[2022-09-21 16:41] LABS: Glucose Point of Care 111 mg/dL (70-110)
[2022-09-21] MEDS: sennosides-docusate Tablet 1 TAB PO (17:15)
[2022-09-21] MEDS: carvedilol 12.5 mg Tablet PO (17:15)
[2022-09-21] MEDS: acetaminophen 325 mg Tablet 650 MG PO (17:16)
[2022-09-21] MEDS: pantoprazole 40 mg SDV IVP (17:42)
[2022-09-21] MEDS: quetiapine 25 mg Tablet 75 MG PO (20:04)
[2022-09-21 21:10] LABS: Glucose Point of Care 105 mg/dL (70-110)
[2022-09-22] VITALS (29 sets, daily range): BP systolic 136–192; BP diastolic 63–109; PULSE 84–100; RESP 15–29; TEMP 36.6–37.7; O2SAT 88–97
--- NOTE | 2022-09-22 00:36 | PC.NURSE ---
SpO2 dropped to 88%. Pt was instructed to cough and NC oxygen was titrated up from 2L to 4L. SpO2 dropped to 84% and sustained. Pt was placed on BIPAP. RT notified. Worsening crackles in lungs noted. Dr. Manzano notifed. New order to give 10:15 40mg Lasix now.
[2022-09-22] MEDS: FUROsemide 10 mg/mL SDV 4mL 40 MG IVP (00:42)
[2022-09-22 02:52] LABS: Basophils % 0.1 %; Eosinophils % 0.6 %; Hematocrit 26.5 % (42.0-52.0); Hemoglobin 8.4 g/dL (11.7-16.6); Lymphocytes # 0.8 10^3/uL (0.8-4.8); Lymphocytes % 11.3 %; Mean Corpuscular HGB Conc 31.7 g/dL (30.0-36.0); Mean Corpuscular Hemoglobin 32.1 pg (28.0-34.0); Mean Corpuscular Volume 101.1 fl (80-94); Mean Platelet Volume 12.2 fL (7.4-10.4); Monocytes # 0.4 10^3/uL (0.2-0.9); Monocytes % 5.7 %; Neutrophils % 81.9 %; Nucleated Red Blood Cells % 0 %; Platelet Count 127 10^3/cmm (130-400); Red Blood Count 2.62 10^6/uL (4.1-5.3); Red Cell Distribution Width 17.5 % (12.1-15.1); White Blood Count 6.7 10^3/uL (4.0-10.0)
--- NOTE | 2022-09-22 03:02 | PC.NURSE ---
Pt ripped off BIPAP. Pt placed on NC 6L, SpO2 88%, instructed pt to cough, suctioned mouth, repositioned pt. Educated pt on the importance and purpose of the BIPAP. Currently pt is agreeable to wear the BIPAP for a couple more hours . SpO2 90%. RT aware.
[2022-09-22] MEDS: ipratropium-albuterol 3 mL Neb INHALATION ×4 (03:14→20:16)
[2022-09-22 03:23] LABS: Anion Gap 10.6 (5-19); Blood Urea Nitrogen 11 mg/dL (8-23); Calcium 8.6 mg/dL (8.5-10.5); Carbon Dioxide 37 mmol/L (22-29); Chloride 99 mmol/L (98-107); Glomerular Filtration Rate 169.6 mL/min (90-130); Glucose 85 mg/dL (65-115); Osmolality Calculated 295 mOsm/kg (285-295); Potassium 3.6 mmol/L (3.5-5.1); Sodium 143 mmol/L (136-145)
[2022-09-22 04:16] LABS: Glucose Point of Care 87 mg/dL (70-110)
[2022-09-22] MEDS: heparin 5,000 unit/mL INJ 1 mL 5000 UNIT SUBCUT ×2 (06:20→17:45)
[2022-09-22] MEDS: sertraline 50 mg Tablet PO (06:29)
[2022-09-22] MEDS: budesonide 0.5 mg/2 mL Neb INHALATION ×2 (07:51→20:16)
[2022-09-22] MEDS: magnesium hydroxide 30 mL UDC PO (07:55)
[2022-09-22] MEDS: sennosides-docusate Tablet 1 TAB PO (07:55)
[2022-09-22] MEDS: amlodipine 10 mg Tablet PO (07:56)
[2022-09-22] MEDS: carvedilol 12.5 mg Tablet PO ×2 (07:56→17:45)
[2022-09-22] MEDS: lisinopril 20 mg Tablet 40 MG PO (07:56)
[2022-09-22 11:26] LABS: Glucose Point of Care 110 mg/dL (70-110)
--- NOTE | 2022-09-22 11:46 | P.PN_ITS ---
Subjective Subjective: This morning patient much more awake and alert as reviewed yesterday Tolerating diet Had lengthy discussion with the patient and his , they have decided to pursue DNR/DNI status for now and will consult palliative team OZ Vitals/I&O/Wt Last Vital Signs Temp 98.2 F 09/22/22 04:00 Pulse 89 09/22/22 10:50 Resp 20 H 09/22/22 07:51 BP 169/109 09/22/22 06:00 Pulse Ox 95 09/22/22 10:50 O2 Del Method 09/22/22 07:51 O2 Flow Rate 4 09/22/22 07:51 FiO2 35 09/22/22 10:50 09/21/22 09/22/22 09/22/22 22:59 06:59 14:59 Intake Total 120 / 120 Output Total 1850 / 1850 1800 / 3650 Balance -1730 / -1730 -1800 / -3530 Weight last 48 hrs Weight 101.559 kg Weight 101.559 kg Physical Exam Narrative: Patient is on 4 L nasal cannula Extremity swelling slightly better as compared to yesterday however still swollen Patient is awake and alert Weak husky voice Able to comprehend Nonfocal neuro exam Abdomen soft nontender Able to follow commands No asterixis S1, S2 No active respiratory distress Urinary Catheter Management: Nuñez: Cath Placed During This Visit: yes, but has since been removed by the nurse Reason for Continuing Indwelling Catheter: Accurate Measurement of Urinary Output in Critically Ill Patients Urinary Catheter Date of Insertion: 09/21/22 Urinary Catheter Time of Insertion: 11:00 Date Urinary Catheter Removed: 09/20/22 Time Urinary Catheter Discontinued: 15:00 Data 09/22/22 02:27 09/22/22 02:27 A&P Assessment and plan (1) Anxiety and depression: (2) Hypernatremia: (3) Thrombocytopenia: (4) Infection due to ESBL-producing Klebsiella pneumoniae: (5) S/P exploratory laparotomy: (6) Septic shock: (7) DEMETRIS (acute kidney injury): (8) Hypocalcemia: (9) Hypomagnesemia: (10) Goals of care, counseling/discussion: Plan Small bowel obstruction: Post exploratory laparotomy day 9.. Speech therapist recommended dysphagia diet, Shock: Septic versus hypovolemic.? Resolved. Positive fluid balance we will give another dose of Lasix today x ESBL E. coli pneumonia: Extubated on 09/17. resume Carbapenam 7- 10 day regimen Recurrent aspiration events Aspiration event 09/21, on dysphagia diet Afebrile in last 24 hours Acute kidney injury:?Resolved Off IVF A-fib with RVR: Anticoagulation on hold , platelets are stable Amiodarone drip stopped start low dose AV angelica blocking agent No need of therapeutic anticoagulation as A-fib for less than 48 hours. for sepsis induced arrythmia History of coronary artery disease status post stent: History of diabetes: Goals of care discussed with the patient and his , patient is DNR/DNI now and would like to pursue comfort care in case of further worsening at senior care, will consult palliative team at [facility] once cleared for level 2 Attestations Medical Necessity Statement*: Awaiting senior care placement Procedures Arterial Line Size (Gauge): 20 Coding Level of Care Code 48382 Diagnoses Anxiety and depression F41.9; F32.A Hypernatremia E87.0 Thrombocytopenia D69.6 Infection due to ESBL-producing Klebsiella pneumoniae A49.8; Z16.12 S/P exploratory laparotomy Z98.890 Septic shock A41.9; R65.21 DEMETRIS (acute kidney injury) N17.9 Hypocalcemia E83.51 Hypomagnesemia E83.42 Goals of care, counseling/discussion Z71.89
--- NOTE | 2022-09-22 14:28 | PM.PN ---
Subjective Subjective: Passing flatus. he has had a bowel movement. tolerating diet Vitals/I&O/Wt Last Vital Signs Temp 98.7 F 09/22/22 08:00 Pulse 98 09/22/22 14:00 Resp 29 H 09/22/22 14:00 BP 185/89 09/22/22 14:00 Pulse Ox 92 09/22/22 14:00 O2 Del Method 09/22/22 07:51 O2 Flow Rate 4 09/22/22 07:51 FiO2 35 09/22/22 10:50 09/21/22 09/22/22 09/22/22 22:59 06:59 14:59 Intake Total 120 / 120 600 / 600 Output Total 1850 / 1850 1800 / 3650 Balance -1730 / -1730 -1800 / -3530 600 / 600 Weight last 48 hrs Weight 223 lb 14.4 oz Weight 223 lb 14.4 oz Physical Exam Narrative: General: No acute distress Abdomen: Soft, mildly distended, nontender Urinary Catheter Management: Nuñez: Cath Placed During This Visit: yes, but has since been removed by the nurse Reason for Continuing Indwelling Catheter: Accurate Measurement of Urinary Output in Critically Ill Patients Urinary Catheter Date of Insertion: 09/21/22 Urinary Catheter Time of Insertion: 11:00 Date Urinary Catheter Removed: 09/20/22 Time Urinary Catheter Discontinued: 15:00 Data 09/22/22 02:27 09/22/22 02:27 A&P Assessment and plan (1) Small bowel obstruction: Plan No obstruction seen in the operating room Okay for regular dysphagia diet Medical management per hospitalis RN to remove percy Surgically stable for discharge General surgery will sign off. Please reconsult if needed Attestations Medical Necessity Statement*: Per primary Procedures Arterial Line Size (Gauge): 20 Coding Level of Care Code Acute Code for Chg Fwd Diagnoses Small bowel obstruction K56.609
[2022-09-22 17:25] LABS: Glucose Point of Care 130 mg/dL (70-110)
[2022-09-22] MEDS: pantoprazole 40 mg SDV IVP (17:45)
--- NOTE | 2022-09-22 18:50 | PC.NURSE ---
Dr. Rueda gave verbal order to remove abdominal percy. 24 Percy were removed. Shortly after a small opening at the distal end of incision was noted. Dr. Inman was notified and gave order to apply steri strips.
[2022-09-22] MEDS: hyDRALAzine 20 mg/mL INJ 1 mL 10 MG IVP (20:06)
[2022-09-22] MEDS: quetiapine 25 mg Tablet 75 MG PO (20:26)
[2022-09-22] MEDS: acetaminophen 325 mg Tablet 650 MG PO (20:29)
[2022-09-23] VITALS (21 sets, daily range): BP systolic 112–175; BP diastolic 59–97; PULSE 81–102; RESP 14–29; TEMP 36.4–37.5; O2SAT 87–97
[2022-09-23 00:15] LABS: Glucose Point of Care 115 mg/dL (70-110)
[2022-09-23] MEDS: ipratropium-albuterol 3 mL Neb INHALATION ×4 (02:44→19:42)
[2022-09-23 03:22] LABS: Basophils % 0.2 %; Eosinophils % 0.3 %; Hematocrit 25.4 % (42.0-52.0); Lymphocytes # 0.6 10^3/uL (0.8-4.8); Lymphocytes % 10.3 %; Mean Corpuscular HGB Conc 31.5 g/dL (30.0-36.0); Mean Corpuscular Hemoglobin 32.3 pg (28.0-34.0); Mean Corpuscular Volume 102.4 fl (80-94); Mean Platelet Volume 12.2 fL (7.4-10.4); Monocytes # 0.4 10^3/uL (0.2-0.9); Monocytes % 6.4 %; Neutrophils # 4.88 10^3/uL (1.8-7.7); Neutrophils % 82.5 %; Nucleated Red Blood Cells % 0 %; Platelet Count 143 10^3/cmm (130-400); Red Blood Count 2.48 10^6/uL (4.1-5.3); Red Cell Distribution Width 17.7 % (12.1-15.1); White Blood Count 5.9 10^3/uL (4.0-10.0)
[2022-09-23 03:46] LABS: Anion Gap 9.3 (5-19); Blood Urea Nitrogen 11 mg/dL (8-23); Calcium 8.5 mg/dL (8.5-10.5); Carbon Dioxide 37 mmol/L (22-29); Chloride 100 mmol/L (98-107); Glomerular Filtration Rate 219.4 mL/min (90-130); Glucose 108 mg/dL (65-115); Osmolality Calculated 296 mOsm/kg (285-295); Potassium 3.3 mmol/L (3.5-5.1); Sodium 143 mmol/L (136-145)
[2022-09-23 04:58] LABS: Glucose Point of Care 100 mg/dL (70-110)
[2022-09-23] MEDS: heparin 5,000 unit/mL INJ 1 mL 5000 UNIT SUBCUT ×2 (06:26→17:42)
[2022-09-23] MEDS: sertraline 50 mg Tablet PO (06:27)
[2022-09-23] MEDS: ondansetron 2 mg/ML SDV 2 mL 4 MG IVP (06:32)
--- NOTE | 2022-09-23 06:34 | PC.NURSE ---
@ approxiamtely 0620 pt SpO2 dropped to 85% and sustained. Pt was pulled up in bed and instructed to cough. NC turned up to 6L from the pervious 4L. SpO2 81%. BIPAP placed on pt. SpO2 slowly recovered to 90%.
[2022-09-23] MEDS: budesonide 0.5 mg/2 mL Neb INHALATION ×2 (07:49→19:42)
[2022-09-23 09:49] LABS: Glucose Point of Care 116 mg/dL (70-110)
[2022-09-23] MEDS: acetaminophen 325 mg Tablet 650 MG PO ×2 (09:58→16:32)
[2022-09-23] MEDS: lisinopril 20 mg Tablet 40 MG PO (09:58)
[2022-09-23] MEDS: amlodipine 10 mg Tablet PO (09:58)
[2022-09-23] MEDS: FUROsemide 10 mg/mL SDV 4mL 40 MG IVP (09:59)
[2022-09-23] MEDS: carvedilol 12.5 mg Tablet PO ×2 (09:59→17:42)
[2022-09-23] MEDS: potassium chloride ER 20 mEq Tablet PO (10:00)
--- NOTE | 2022-09-23 11:08 | PM.PN ---
Subjective Subjective: Adequate urine output Afebrile Currently on 4 L nasal cannula She can be transferred out of ICU to [facility] Has been stable Cultures negative Afebrile Potassium 3.3: Repleted Creatinine 0.4 Vitals/I&O/Wt Last Vital Signs Temp 99.5 F 09/23/22 01:00 Pulse 94 09/23/22 08:00 Resp 21 H 09/23/22 08:00 BP 149/75 09/23/22 08:00 Pulse Ox 93 09/23/22 08:00 O2 Del Method 09/23/22 07:49 O2 Flow Rate 5 09/23/22 07:49 FiO2 35 09/22/22 10:50 09/22/22 09/23/22 09/23/22 22:59 06:59 14:59 Intake Total 100 / 700 Output Total 750 / 750 Balance 100 / 700 -750 / -50 Weight last 48 hrs Weight 101.514 kg Weight 101.559 kg Physical Exam Narrative: Patient is awake and alert Energy level is good Tolerating diet Son at the bedside is on the phone Awake and alert Able to follow commands Extremity edema improved however still present Fully catheter draining urine slightly concentrated Patient is able to follow commands No airway compromise currently on 4 L nasal cannula Bradycardia with S1-S2 No rhonchi or crackles Urinary Catheter Management: Nuñez: Cath Placed During This Visit: yes, but has since been removed by the nurse Reason for Continuing Indwelling Catheter: Accurate Measurement of Urinary Output in Critically Ill Patients Urinary Catheter Date of Insertion: 09/21/22 Urinary Catheter Time of Insertion: 11:00 Date Urinary Catheter Removed: 09/20/22 Time Urinary Catheter Discontinued: 15:00 Data 09/23/22 02:53 09/23/22 02:53 Micro: Microbiology 09/14/22 20:33 Stool Lactoferrin - Final Stool C.difficile Toxin B Gene (PCR) - Final Occult Blood (FIT) - Final A&P Assessment and plan (1) Goals of care, counseling/discussion: (2) Anxiety and depression: (3) Hypernatremia: (4) Thrombocytopenia: (5) Infection due to ESBL-producing Klebsiella pneumoniae: (6) S/P exploratory laparotomy: (7) Septic shock: (8) DEMETRIS (acute kidney injury): (9) Hypocalcemia: (10) Hypomagnesemia: (11) Atrial fibrillation: (12) Weakness: Plan Small bowel obstruction Status post exploratory laparotomy day 10 Patient is tolerating diet Appreciate speech therapy recommendation Severe deconditioning Going to detention Patient and family wants to consult with palliative team, Dr. Sevilla onsulted and updated She might see him once he is at detention ESBL pneumonia extubated 09/17 Continue antibiotics until the day of discharge Afebrile DEMETRIS: Resolved A-fib without RVR Continue AV angelica blocking agent Not a candidate of anticoagulating agent because of sepsis induced A-fib Coronary disease status post stent no active chest pain Euglycemic history of diabetes DNR/DNI Hypokalemia: Repleted Positive fluid balance continue IV Lasix Attestations Medical Necessity Statement*: Awaiting clearance of level 2 Procedures Arterial Line Size (Gauge): 20 Coding Level of Care Code 98975 Diagnoses Goals of care, counseling/discussion Z71.89 Anxiety and depression F41.9; F32.A Hypernatremia E87.0 Thrombocytopenia D69.6 Infection due to ESBL-producing Klebsiella pneumoniae A49.8; Z16.12 S/P exploratory laparotomy Z98.890 Septic shock A41.9; R65.21 DEMETRIS (acute kidney injury) N17.9 Hypocalcemia E83.51 Hypomagnesemia E83.42 Atrial fibrillation I48.91 Weakness R53.1
--- NOTE | 2022-09-23 13:49 | PC.NURSE ---
Pt was taken to [facility] via bed at around 1330 on 5L NC. All belongings placed in closet in room. and medsurg staff aware. Pt educated to not remove oxygen tubing and bipap by himself multiple times this shift.
--- NOTE | 2022-09-23 14:22 | PC.SOCIAL ---
IMM UPDATED IMM dated and initialed, copy given to patient
[2022-09-23] MEDS: potassium chloride oral liq 20 mEq/15 mL UDC PO (14:41)
[2022-09-23] MEDS: ALPRAZolam 0.5 mg Tablet PO (16:32)
[2022-09-23] MEDS: pantoprazole 40 mg SDV IVP (17:42)
[2022-09-23] MEDS: quetiapine 25 mg Tablet 75 MG PO (20:11)
[2022-09-23 22:35] LABS: Glucose Point of Care 112 mg/dL (70-110)
[2022-09-24] VITALS (14 sets, daily range): BP systolic 132–160; BP diastolic 45–82; PULSE 75–100; RESP 15–24; TEMP 36.3–37.5; O2SAT 82–96; BMI 33.9
[2022-09-24] MEDS: ipratropium-albuterol 3 mL Neb INHALATION ×4 (02:39→19:57)
--- NOTE | 2022-09-24 03:59 | PC.RESP ---
Patient took BIPAP off and refused to hae it put back on. Pt is wearing a nasal cannula @ 5 litters.
[2022-09-24] MEDS: heparin 5,000 unit/mL INJ 1 mL 5000 UNIT SUBCUT ×2 (04:56→18:01)
[2022-09-24] MEDS: sertraline 50 mg Tablet PO (05:00)
[2022-09-24 05:27] LABS: Glucose Point of Care 104 mg/dL (70-110)
[2022-09-24] MEDS: budesonide 0.5 mg/2 mL Neb INHALATION ×2 (07:50→19:57)
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
--- NOTE | 2022-09-24 10:06 | P.PN_ITS ---
Subjective Subjective: This morning patient was slightly drowsy I have asked nurse to keep an eye if he becomes more obtunded will probably need to put him on BiPAP after obtaining ABG I also updated his that today also spoke with Dr. Dowling I have notified her that patient is very drowsy and we have to be careful with opioids, we will add scheduled Tylenol, Ultram which is his home regimen and for breakthrough pain can use ibuprofen creatinine was normal as of yesterday Vitals/I&O/Wt Last Vital Signs Temp 98.7 F 09/24/22 03:51 Pulse 90 09/24/22 08:01 Resp 18 09/24/22 08:01 BP 136/72 09/24/22 03:51 Pulse Ox 94 09/24/22 08:01 O2 Del Method 09/24/22 08:01 O2 Flow Rate 4 09/24/22 08:01 FiO2 35 09/24/22 02:42 09/23/22 09/24/22 09/24/22 22:59 06:59 14:59 Intake Total 480 / 600 0 / 0 Output Total 450 / 1850 Balance 480 / -800 -450 / -1250 0 / 0 Weight last 48 hrs Weight 86.863 kg Weight 101.514 kg Physical Exam Narrative: Patient is slightly drowsy as compared to yesterday Nonfocal neuro exam Able to follow commands is on the phone I have updated Dr. Tavarez No signs of dehiscence, parul removed, no signs of swelling or drainage Abdomen is nontender Patient is not complaining of any pain Upper airway secretions with resonance Currently on 2 L nasal cannula S1, S2 Lower extremity no swelling Urinary Catheter Management: Nuñez: Cath Placed During This Visit: yes, but has since been removed by the nurse Reason for Continuing Indwelling Catheter: Accurate Measurement of Urinary Output in Critically Ill Patients Urinary Catheter Date of Insertion: 09/21/22 Urinary Catheter Time of Insertion: 11:00 Date Urinary Catheter Removed: 09/20/22 Time Urinary Catheter Discontinued: 15:00 Data 09/23/22 02:53 09/23/22 02:53 Micro: Microbiology 09/14/22 20:33 Stool Lactoferrin - Final Stool Enteric Pathogens (PCR) - Final Parasite Antigen Panel - Final C.difficile Toxin B Gene (PCR) - Final Occult Blood (FIT) - Final A&P Assessment and plan (1) Goals of care, counseling/discussion: (2) Anxiety and depression: (3) Hypernatremia: (4) Thrombocytopenia: (5) Infection due to ESBL-producing Klebsiella pneumoniae: (6) S/P exploratory laparotomy: (7) Septic shock: (8) DEMETRIS (acute kidney injury): (9) Hypocalcemia: (10) Hypomagnesemia: (11) Atrial fibrillation: Plan Small bowel obstruction Status post exploratory laparotomy day 11 Patient is on dysphagia diet Speech therapy on daily basis Parul removed, we have applied Steri-Strips for mild wound dehiscence less waldo n 2 cm, Dr. Rueda is in agreement Severe deconditioning Awaiting intermediate placement Talked with Dr. Dowling Adding scheduled Tylenol with Ultram and ibuprofen on as-needed basis Patient does get hypoventilation induced confusion and obtundation, avoiding strong opioids for now he does have lower back pain which is a chronic issue for him ESBL pneumonia extubated 09/17 Finished 10 day IV antibiotic course, finished course 09/19 Remained afebrile Continue pulmonary toilet, incentive spirometer flutter valve Aspiration precautions DEMETRIS: Resolved A-fib without RVR Continue AV angelica blocking agent Not a candidate of anticoagulating agent because of sepsis induced A-fib Coronary disease status post stent no active chest pain Diabetes: Goals of care discussed with the patient and his , DNR/DNI, in case of further worsening in future at intermediate they might opt for palliative care Hypokalemia: Repleted Positive fluid balance continue IV Lasix I did not repeat labs on 09/24, will order labs for tomorrow Physical therapy: Encourage patient to get out of bed to chair Discharge planning: Awaiting discharge to SNF once level [address] with Dr[address] Tavarez, RN and charge nurse Attestations Medical Necessity Statement*: Awaiting placement Procedures Arterial Line Size (Gauge): 20 Coding Level of Care Code 22148 Diagnoses Goals of care, counseling/discussion Z71.89 Anxiety and depression F41.9; F32.A Hypernatremia E87.0 Thrombocytopenia D69.6 Infection due to ESBL-producing Klebsiella pneumoniae A49.8; Z16.12 S/P exploratory laparotomy Z98.890 Septic shock A41.9; R65.21 DEMETRIS (acute kidney injury) N17.9 Hypocalcemia E83.51 Hypomagnesemia E83.42 Atrial fibrillation I48.91
[2022-09-24] MEDS: sennosides-docusate Tablet 1 TAB PO ×2 (10:53→18:02)
[2022-09-24] MEDS: carvedilol 12.5 mg Tablet PO ×2 (10:53→18:02)
[2022-09-24] MEDS: lisinopril 20 mg Tablet 40 MG PO (10:54)
[2022-09-24] MEDS: magnesium hydroxide 30 mL UDC PO (10:54)
[2022-09-24] MEDS: amlodipine 10 mg Tablet PO (10:54)
[2022-09-24] MEDS: FUROsemide 10 mg/mL SDV 4mL 40 MG IVP (11:04)
[2022-09-24 11:14] LABS: Glucose Point of Care 93 mg/dL (70-110)
[2022-09-24] MEDS: scopolamine 1.5 Patch 1 PATCH TRANSDERMA (11:32)
--- NOTE | 2022-09-24 12:29 | PC.NURSE ---
PT REFUSES TO SIT UP, EDUC PT ON RISKS OF LAYING DOWN, PT STILL INSISTS ON LAYING FLAT
[2022-09-24 12:54] LABS: Blood Gas Operator Identificat AMH; Blood Gas Sample Site Brachial, left; Blood Gas Sample Type Arterial; Ionized Calcium Level - ABG 1.2 mmol/L (1.1-1.4); Oxygen Device NC
[2022-09-24 13:13] LABS: ABG PH Result 7.42 (7.35-7.45); Alveolar-Arterial Oxygen Gradi 22.5 mmHg (5-10); Arterial Blood Gas Hematocrit 26.1 % (42-52); Carboxyhemoglobin 0.3 %THgb (0.4-20.1); HCO3 ABG 47.1 mmol/L (22-26); HGB O2 Sat 83.7 % (95-100); Methemoglobin 1.2 % (0.4-1.5); PO2 ABG 53.4 mmHg (80.0-100.0); Potassium Level - ABG 2.8 mmol/L (3.5-5.0); Total Hemoglobin 8.5 g/dL (14-18)
[2022-09-24 13:15] LABS: ABG PCO2 72.6 mmHg (35-45)
--- NOTE | 2022-09-24 15:24 | PC.NURSE ---
PT PUT ON ON BIPAP, BIPAP ALARMED AND NURSE RESPONDED, PT TOOK OF HIS BIPAP AND REFUSED TO PUT IT BACK ON.
[2022-09-24 16:46] LABS: Glucose Point of Care 91 mg/dL (70-110)
[2022-09-24] MEDS: pantoprazole 40 mg SDV IVP (18:01)
[2022-09-24] MEDS: acetaminophen 325 mg Tablet 650 MG PO (18:02)
[2022-09-24 19:32] LABS: Anion Gap 9.7 (5-19); Blood Urea Nitrogen 9 mg/dL (8-23); Calcium 7.9 mg/dL (8.5-10.5); Carbon Dioxide 37 mmol/L (22-29); Chloride 98 mmol/L (98-107); Glomerular Filtration Rate 305.8 mL/min (90-130); Glucose 84 mg/dL (65-115); Magnesium 1.8 mg/dL (1.7-2.3); Osmolality Calculated 292 mOsm/kg (285-295); Sodium 142 mmol/L (136-145)
[2022-09-24 19:41] LABS: Potassium 2.7 mmol/L (3.5-5.1)
[2022-09-24] MEDS: lidocaine 1% 5 ML in potassium chloride premix 100 ML 26.25 ML IV (20:16)
[2022-09-24 21:03] LABS: Glucose Point of Care 97 mg/dL (70-110)
[2022-09-24] MEDS: TRAMadol 50 mg Tablet PO (21:36)
[2022-09-25] VITALS (15 sets, daily range): BP systolic 97–169; BP diastolic 60–87; PULSE 74–101; RESP 16–22; TEMP 36.6–37.4; O2SAT 90–100; BMI 35.3
[2022-09-25] MEDS: lidocaine 1% 5 ML in potassium chloride premix 100 ML 52.5 ML IV (00:20)
[2022-09-25 00:26] LABS: Glucose Point of Care 96 mg/dL (70-110)
[2022-09-25] MEDS: acetaminophen 325 mg Tablet 650 MG PO ×4 (00:51→18:27)
--- NOTE | 2022-09-25 01:03 | PC.NURSE ---
The patients lidocaine label would not scan with various attempts of trying to scan it. The medication that was administered was verified in person by the charge nurse and pharmacy. This nurse manually administered the medication with pharmacy Herve present due to that being his recommendation.
[2022-09-25] MEDS: ipratropium-albuterol 3 mL Neb INHALATION ×4 (02:17→19:47)
[2022-09-25 04:08] LABS: Glucose Point of Care 96 mg/dL (70-110)
[2022-09-25] MEDS: TRAMadol 50 mg Tablet PO ×3 (04:38→20:41)
[2022-09-25] MEDS: heparin 5,000 unit/mL INJ 1 mL 5000 UNIT SUBCUT ×2 (04:38→18:27)
[2022-09-25 05:04] LABS: Basophils % 0.3 %; Eosinophils % 0.3 %; Hematocrit 25.5 % (42.0-52.0); Hemoglobin 7.8 g/dL (11.7-16.6); Lymphocytes # 0.8 10^3/uL (0.8-4.8); Lymphocytes % 10.4 %; Mean Corpuscular HGB Conc 30.6 g/dL (30.0-36.0); Mean Corpuscular Hemoglobin 31.7 pg (28.0-34.0); Mean Corpuscular Volume 103.7 fl (80-94); Mean Platelet Volume 12.5 fL (7.4-10.4); Monocytes # 0.2 10^3/uL (0.2-0.9); Monocytes % 2.9 %; Neutrophils # 6.61 10^3/uL (1.8-7.7); Neutrophils % 85.7 %; Nucleated Red Blood Cells % 0 %; Platelet Count 175 10^3/cmm (130-400); Red Blood Count 2.46 10^6/uL (4.1-5.3); Red Cell Distribution Width 17.8 % (12.1-15.1); White Blood Count 7.7 10^3/uL (4.0-10.0)
[2022-09-25 05:26] LABS: Blood Urea Nitrogen 11 mg/dL (8-23); Calcium 8.7 mg/dL (8.5-10.5); Chloride 98 mmol/L (98-107); Glomerular Filtration Rate 219.4 mL/min (90-130); Glucose 94 mg/dL (65-115); Osmolality Calculated 299 mOsm/kg (285-295); Sodium 145 mmol/L (136-145)
[2022-09-25 05:41] LABS: Carbon Dioxide 41 mmol/L (22-29)
[2022-09-25] MEDS: sertraline 50 mg Tablet PO (06:24)
[2022-09-25 06:36] LABS: Glucose Point of Care 99 mg/dL (70-110)
[2022-09-25] MEDS: budesonide 0.5 mg/2 mL Neb INHALATION ×2 (07:32→19:47)
[2022-09-25] MEDS: carvedilol 12.5 mg Tablet PO ×2 (08:35→18:27)
[2022-09-25] MEDS: lisinopril 20 mg Tablet 40 MG PO (08:35)
[2022-09-25] MEDS: FUROsemide 20 mg Tablet PO (08:36)
[2022-09-25] MEDS: amlodipine 10 mg Tablet PO (08:36)
--- NOTE | 2022-09-25 09:53 | PC.SOCIAL ---
IMM update IMM updated with patient. Copy Pg 2 provide. Verbalized an understanding. Initialled, dated, timed, and placed in chart.
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
--- NOTE | 2022-09-25 11:39 | XR_ITS ---
WS: [id number] Portable AP upright chest, 09/25/2022 Clinical Data: sob Comparison: Portable chest, 09/21/2022 Findings: The bilateral pulmonary groundglass opacities remain the same. The right diaphragm is eleva sarmad. The heart size remains the same. No pneumothorax is seen. The cardiac pacemaker remains in the s shanna position as does the right internal jugular venous catheter. There is vertebroplasty cement in th e upper lumbar vertebral bodies. There is an old proximal right humeral fracture. XR/XR chest 1V portable [id number] Impression: 1. No change in bilateral pulmonary opacities. 2. Cardiac pacemaker and right internal jugular venous catheter remain in the s shanna position.
[2022-09-25 11:56] LABS: Glucose Point of Care 113 mg/dL (70-110)
--- NOTE | 2022-09-25 12:24 | P.PN_ITS ---
Subjective Subjective: Patient was seen this morning, according to nursing staff patient refuses to get up to into a chair, upon evaluation, patient tells me that he is in a lot of pain, his back is hurting him that is why he does not want to get up to the side of the bed or into a chair, he tells me that the tramadol is not enough, he needs something more to help with his pain, he tells me that before all this he was able to walk, he was walking at home, I asked him if he had the motivation to walk any tells me yes, but he is hurting all over especially his back, I was agreeable to start him on low-dose morphine and he was agreeable to this, he assures me that he is in a try with nursing staff to get up to the side of the bed he does report poor appetite, lack of bowel movement Vitals/I&O/Wt Last Vital Signs Temp 98.0 F 09/25/22 07:51 Pulse 86 09/25/22 07:51 Resp 16 09/25/22 07:51 BP 169/84 09/25/22 07:51 Pulse Ox 99 09/25/22 07:51 O2 Del Method 09/25/22 07:51 O2 Flow Rate 9 09/25/22 07:34 FiO2 50 09/24/22 13:36 09/24/22 09/25/22 09/25/22 22:59 06:59 14:59 Intake Total 720 / 2310 210 / 2520 240 / 240 Output Total 500 / 500 Balance 720 / 2310 -290 / 2020 240 / 240 Weight last 48 hrs Weight 90.407 kg Weight 86.863 kg Physical Exam Const: COMMON NORMALS: no acute distress and patient oriented x3 Resp: COMMON NORMALS: normal respiratory effort, No retractions and No use of accessory muscles Cardio: COMMON NORMALS: regular rate, regular rhythm, S1 normal heart sound present and S2 normal heart sound present RATE: regular rate RHYTHM: regular rhythm HEART SOUNDS: S1 normal heart sound present and S2 normal heart sound present GI: COMMON NORMALS: Normal to inspection, nondistended, normoactive bowel sounds present and non-tender OTHER: Wheezing and crackles, in bilateral lung farrell Surgical site looks clean and dry Extremity: COMMON NORMALS: no pedal edema Neuro: COMMON NORMALS: patient oriented x3 Urinary Catheter Management: Nuñez: Cath Placed During This Visit: yes, but has since been removed by the nurse Reason for Continuing Indwelling Catheter: Other Urinary Catheter Date of Insertion: 09/21/22 Urinary Catheter Time of Insertion: 11:00 Date Urinary Catheter Removed: 09/20/22 Time Urinary Catheter Discontinued: 15:00 Data 09/25/22 04:13 09/25/22 04:13 A&P Assessment and plan (1) Goals of care, counseling/discussion: (2) Anxiety and depression: (3) Hypernatremia: (4) Thrombocytopenia: (5) Infection due to ESBL-producing Klebsiella pneumoniae: (6) S/P exploratory laparotomy: (7) Septic shock: (8) DEMETRIS (acute kidney injury): (9) Hypocalcemia: (10) Hypomagnesemia: (11) Atrial fibrillation: (12) Intractable pain: (13) Chronic back pain: (14) Traumatic compression fracture of thoracic vertebra: (15) Traumatic compression fracture of T12 thoracic vertebra: (16) Severe depression: Plan Intractable pain, intractable back pain -Has had a history of spinal fusion Lumbar ct 2021 3. Chronic appearing 30% anterior compression fracture of T12. 4. Low density bone consistent with osteopenia/osteoporosis. 5. Dextroscoliosis. 6. Missing bone in the L1 and L2 pedicular areas consistent with sequela from previous bilateral L1-L2 posterior pedicular screws which have been removed. 7. Bilateral L5-S1 facet hypertrophy and degenerative change. thoracic ct 2021 1. Multilevel spinal fusion of the spinous processes consistent with postoperative change versus ankylosing spondylitis. 2. Status post right T12 laminectomy. 3. Prominent Schmorl's node in the superior portion of the T12 vertebral body with chronic appearing 10% compression fracture. 4. Air within the T11 vertebral body suggesting possible osteonecrosis. -Has had a history of compression fractures, spinal fusion -According to patient, Ultram is not adequately controlling his pain -Start morphine 0.5 mg twice daily -Encourage up out of bed, at least today up to the side of the bed hopefully into a chair -Palliative care consult Dr. Webb Severe depression -This morning patient really does not have any motivation, he has poor eye contact, has poor appetite, he says he wants to get up out of bed, but shows no effort -Start Seroquel 100 mg nightly -consult psychiatry Insomnia, continue Seroquel Small bowel obstruction Status post exploratory laparotomy day 11 Patient is on dysphagia diet Speech therapy on daily basis Severe deconditioning Awaiting correction placement Talked with Dr. Dowling Start low-dose morphine ESBL pneumonia extubated 09/17 Finished 10 day? IV antibiotic course, finished course 09/19 Remained afebrile Continue pulmonary toilet, incentive spirometer flutter valve Aspiration precautions Acute on chronic anemia -Hemoglobin 7.8 -Hemoccult stool negative -Iron levels low at 54 -Does take Eliquis at home, currently on hold due to anemia -Currently on DVT prophylaxis, had heparin DEMETRIS: Resolved A-fib without RVR Continue AV angelica blocking agent Not a candidate of anticoagulating agent because of sepsis induced A-fib Coronary disease status post stent no active chest pain Diabetes: Continue to monitor blood sugars, low-dose sliding scale Goals of care discussed with the patient and his , DNR/DNI, in case of further worsening in future at correction they might opt for palliative care Hypokalemia: Replace Positive fluid balance continue IV Lasix Low TSH, will recheck tomorrow Physical therapy: Encourage patient to get out of bed to chair Discharge planning: Awaiting discharge to SNF once level 2 care approved Spoke with psychiatry, looked at Dr. Dowling's note, spoke with nursing staff Attestations Medical Necessity Statement*: Patient requires hospitalization due to see p ain, back pain, severe depression, insomnia, bowel obstruction severe deconditioning, ESBL pneumonia, acute on chronic anemia atrial fibrillation, Procedures Arterial Line Size (Gauge): 20 Diagnoses Goals of care, counseling/discussion Z71.89 Anxiety and depression F41.9; F32.A Hypernatremia E87.0 Thrombocytopenia D69.6 Infection due to ESBL-producing Klebsiella pneumoniae A49.8; Z16.12 S/P exploratory laparotomy Z98.890 Septic shock A41.9; R65.21 DEMETRIS (acute kidney injury) N17.9 Hypocalcemia E83.51 Hypomagnesemia E83.42 Atrial fibrillation I48.91 Intractable pain R52 Chronic back pain M54.9; G89.29 Traumatic compression fracture of thoracic vertebra S22.000A Traumatic compression fracture of T12 thoracic vertebra S22.080A Severe depression F32.2
[2022-09-25 13:52] LABS: Free T4 Free Thyroxine 1.36 ng/dL (0.82-1.77)
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
[2022-09-25 17:56] LABS: Glucose Point of Care 154 mg/dL (70-110)
[2022-09-25] MEDS: pantoprazole 40 mg SDV IVP (18:27)
[2022-09-25] MEDS: quetiapine 100 mg Tablet 200 MG PO (20:41)
[2022-09-25 23:24] LABS: Glucose Point of Care 115 mg/dL (70-110)
[2022-09-26] VITALS (10 sets, daily range): BP systolic 121–148; BP diastolic 65–73; PULSE 74–94; RESP 16–22; TEMP 36.6–36.8; O2SAT 90–100
[2022-09-26] MEDS: ipratropium-albuterol 3 mL Neb INHALATION ×4 (02:18→20:04)
--- NOTE | 2022-09-26 03:14 | PC.NURSE ---
Upon rounding the pt was lethargic. After the patient woke up he was alert to self and both pupils were reactive. He was able to follow commands and lift up both arms and squeeze this nurse's hands. This nurse educated the pt he may be at high risk for chocking since he is so sleepy and he verbalized it was okay to non admin his scheduled pain medication. has been notified.
[2022-09-26 04:45] LABS: Glucose Point of Care 94 mg/dL (70-110)
[2022-09-26] MEDS: heparin 5,000 unit/mL INJ 1 mL 5000 UNIT SUBCUT ×2 (04:46→18:36)
[2022-09-26 05:20] LABS: Basophils % 0.2 %; Eosinophils % 0.4 %; Hematocrit 24.2 % (42.0-52.0); Hemoglobin 7.3 g/dL (11.7-16.6); Lymphocytes # 0.7 10^3/uL (0.8-4.8); Lymphocytes % 16.6 %; Mean Corpuscular HGB Conc 30.2 g/dL (30.0-36.0); Mean Corpuscular Hemoglobin 32.7 pg (28.0-34.0); Mean Corpuscular Volume 108.5 fl (80-94); Mean Platelet Volume 12.3 fL (7.4-10.4); Monocytes # 0.2 10^3/uL (0.2-0.9); Monocytes % 5.1 %; Neutrophils # 3.45 10^3/uL (1.8-7.7); Neutrophils % 77.3 %; Nucleated Red Blood Cells % 0 %; Platelet Count 136 10^3/cmm (130-400); Red Blood Count 2.23 10^6/uL (4.1-5.3); Red Cell Distribution Width 18.4 % (12.1-15.1); White Blood Count 4.5 10^3/uL (4.0-10.0)
[2022-09-26 05:53] LABS: Anion Gap 3.4 (5-19); Blood Urea Nitrogen 8 mg/dL (8-23); Calcium 8.3 mg/dL (8.5-10.5); Chloride 94 mmol/L (98-107); Glomerular Filtration Rate 219.4 mL/min (90-130); Glucose 89 mg/dL (65-115); NT Pro B Type Natriuretic Pept 3614 pg/mL (0-125); Osmolality Calculated 282 mOsm/kg (285-295); Potassium 3.4 mmol/L (3.5-5.1); Sodium 137 mmol/L (136-145); T3 Free 1.4 PG/ML (2.0-4.4); Thyroid Stimulating Hormone 0.92 uIU/mL (0.27-4.20)
[2022-09-26 06:02] LABS: Carbon Dioxide 43 mmol/L (22-29)
[2022-09-26] MEDS: acetaminophen 325 mg Tablet 650 MG PO ×3 (06:21→18:36)
[2022-09-26] MEDS: sertraline 50 mg Tablet 100 MG PO (06:22)
[2022-09-26 06:38] LABS: Glucose Point of Care 101 mg/dL (70-110)
[2022-09-26] MEDS: budesonide 0.5 mg/2 mL Neb INHALATION ×2 (08:04→20:05)
[2022-09-26] MEDS: carvedilol 12.5 mg Tablet PO ×2 (09:19→18:36)
[2022-09-26] MEDS: FUROsemide 20 mg Tablet PO (09:19)
[2022-09-26] MEDS: lisinopril 20 mg Tablet 40 MG PO (09:19)
[2022-09-26] MEDS: amlodipine 10 mg Tablet PO (09:20)
[2022-09-26 11:19] LABS: Glucose Point of Care 128 mg/dL (70-110)
[2022-09-26] MEDS: TRAMadol 50 mg Tablet PO ×2 (11:46→20:09)
--- NOTE | 2022-09-26 14:11 | PM.PN ---
Subjective Subjective: Patient was seen this morning, he tells me that he is willing to get up to a chair today, he still having pain, but the morphine and the tramadol seems to help, had extensive discussion with him about transitioning him to a p.o. medications as hydrocodone, he is agreeable Vitals/I&O/Wt Last Vital Signs Temp 97.8 F 09/26/22 11:49 Pulse 80 09/26/22 11:49 Resp 16 09/26/22 11:49 BP 121/68 09/26/22 11:49 Pulse Ox 91 09/26/22 11:49 O2 Del Method 09/26/22 11:49 O2 Flow Rate 6 09/26/22 08:10 FiO2 50 09/24/22 13:36 09/25/22 09/26/22 09/26/22 22:59 06:59 14:59 Intake Total 240 / 480 0 / 480 600 / 600 Output Total 1100 / 1100 100 / 1200 Balance -860 / -620 -100 / -720 600 / 600 Weight last 48 hrs Weight 88.995 kg Weight 90.407 kg Physical Exam Const: COMMON NORMALS: no acute distress and patient oriented x3 Neck/C-Spine: COMMON NORMALS: no JVD Resp: COMMON NORMALS: normal respiratory effort, No retractions and No use of accessory muscles AUSCULTATION: wheezes Cardio: COMMON NORMALS: no JVD, regular rate, regular rhythm, S1 normal heart sound present and S2 normal heart sound present RATE: regular rate RHYTHM: regular rhythm HEART SOUNDS: S1 normal heart sound present and S2 normal heart sound present GI: COMMON NORMALS: Normal to inspection, nondistended, normoactive bowel sounds present and non-tender Extremity: COMMON NORMALS: no pedal edema Neuro: COMMON NORMALS: patient oriented x3 Psych: COMMON NORMALS: mental status grossly normal Urinary Catheter Management: Nuñez: Cath Placed During This Visit: yes, but has since been removed by the nurse Reason for Continuing Indwelling Catheter: Other Urinary Catheter Date of Insertion: 09/21/22 Urinary Catheter Time of Insertion: 11:00 Date Urinary Catheter Removed: 09/20/22 Time Urinary Catheter Discontinued: 15:00 Data 09/26/22 04:07 09/26/22 04:07 Micro: Microbiology 09/14/22 20:33 Stool Lactoferrin - Final Stool Enteric Pathogens (PCR) - Final Parasite Antigen Panel - Final C.difficile Toxin B Gene (PCR) - Final Occult Blood (FIT) - Final A&P Assessment and plan (1) Goals of care, counseling/discussion: (2) Anxiety and depression: (3) Hypernatremia: (4) Thrombocytopenia: (5) Infection due to ESBL-producing Klebsiella pneumoniae: (6) S/P exploratory laparotomy: (7) Septic shock: (8) DEMETRIS (acute kidney injury): (9) Hypocalcemia: (10) Hypomagnesemia: (11) Atrial fibrillation: (12) Intractable pain: (13) Chronic back pain: (14) Traumatic compression fracture of thoracic vertebra: (15) Traumatic compression fracture of T12 thoracic vertebra: (16) Severe depression: Plan Intractable pain, intractable back pain -Has had a history of spinal fusion Lumbar ct 2021 3. Chronic appearing 30% anterior compression fracture of T12. 4. Low density bone consistent with osteopenia/osteoporosis. 5. Dextroscoliosis. 6. Missing bone in the L1 and L2 pedicular areas consistent with sequela from previous bilateral L1-L2 posterior pedicular screws which have been removed. 7. Bilateral L5-S1 facet hypertrophy and degenerative change. thoracic ct 2021 1. Multilevel spinal fusion of the spinous processes consistent with postoperative change versus ankylosing spondylitis. 2. Status post right T12 laminectomy. 3. Prominent Schmorl's node in the superior portion of the T12 vertebral body with chronic appearing 10% compression fracture. 4. Air within the T11 vertebral body suggesting possible osteonecrosis. -Has had a history of compression fractures, spinal fusion -Continue Ultram -Switch from morphine to hydrocodone -Encourage up out of bed, at least today up to the side of the bed hopefully into a chair -, Will consult Severe depression -More energized this morning -Zoloft, Seroquel -Continue Zyrtec 20 mg once daily, -consult psychiatry Insomnia, continue Seroquel Small bowel obstruction Status post exploratory laparotomy day 11 Patient is on dysphagia diet Speech therapy on daily basis Severe deconditioning Awaiting care home placement Talked with Dr. Dowling Start low-dose morphine ESBL pneumonia extubated 09/17 Finished 10 day? IV antibiotic course, finished course 09/19 Remained afebrile Continue pulmonary toilet, incentive spirometer flutter valve Aspiration precautions Acute on chronic anemia -Hemoglobin 7.1 -Hemoccult stool negative -Iron levels low at 54 -Does take Eliquis at home, currently on hold due to anemia -Currently on DVT prophylaxis, had heparin DEMETRIS: Resolved A-fib without RVR Continue AV angelica blocking agent Not a candidate of anticoagulating agent because of sepsis induced A-fib Coronary disease status post stent no active chest pain Diabetes: Continue to monitor blood sugars, low-dose sliding scale Goals of care discussed with the patient and his , DNR/DNI, in case of further worsening in future at care home they might opt for palliative care Hypokalemia: Replace Positive fluid balance continue IV Lasix Low TSH, WNL Physical therapy: Encourage patient to get out of bed to chair Discharge planning: Awaiting discharge to SNF once level 2 care approved Spoke with psychiatry, looked at Dr. Dowling's note, spoke with nursing staff Plan for today up to chair, switch to hydrocodone, diuresis, with Lasix IV, repeat hemoglobin this evening Attestations Medical Necessity Statement*: Patient requires hospitalization, due to intractable pain, fluid overload, anemia, hemoglobin however on repeat this evening Procedures Arterial Line Size (Gauge): 20 Diagnoses Goals of care, counseling/discussion Z71.89 Anxiety and depression F41.9; F32.A Hypernatremia E87.0 Thrombocytopenia D69.6 Infection due to ESBL-producing Klebsiella pneumoniae A49.8; Z16.12 S/P exploratory laparotomy Z98.890 Septic shock A41.9; R65.21 DEMETRIS (acute kidney injury) N17.9 Hypocalcemia E83.51 Hypomagnesemia E83.42 Atrial fibrillation I48.91 Intractable pain R52 Chronic back pain M54.9; G89.29 Traumatic compression fracture of thoracic vertebra S22.000A Traumatic compression fracture of T12 thoracic vertebra S22.080A Severe depression F32.2
[2022-09-26] MEDS: potassium chloride ER 20 mEq Tablet 40 MEQ PO (14:40)
[2022-09-26] MEDS: FUROsemide 10 mg/mL SDV 4mL 40 MG IVP (14:40)
[2022-09-26] MEDS: HYDROcodone-acetaminophen 5-325 mg Tablet 0.5 TAB PO (14:41)
[2022-09-26 17:12] LABS: Glucose Point of Care 97 mg/dL (70-110)
[2022-09-26] MEDS: pantoprazole 40 mg SDV IVP (18:36)
[2022-09-26] MEDS: sennosides-docusate Tablet 1 TAB PO (18:37)
[2022-09-26 18:56] LABS: Basophils % 0.1 %; Eosinophils # 0.1 10^3/uL (0.0-0.8); Eosinophils % 0.9 %; Hematocrit 26.2 % (42.0-52.0); Hemoglobin 8.1 g/dL (11.7-16.6); Lymphocytes # 0.7 10^3/uL (0.8-4.8); Lymphocytes % 8.7 %; Mean Corpuscular HGB Conc 30.9 g/dL (30.0-36.0); Mean Corpuscular Hemoglobin 32.5 pg (28.0-34.0); Mean Corpuscular Volume 105.2 fl (80-94); Mean Platelet Volume 12.2 fL (7.4-10.4); Monocytes # 0.3 10^3/uL (0.2-0.9); Monocytes % 4.2 %; Neutrophils # 6.37 10^3/uL (1.8-7.7); Neutrophils % 85.8 %; Nucleated Red Blood Cells % 0 %; Platelet Count 170 10^3/cmm (130-400); Red Blood Count 2.49 10^6/uL (4.1-5.3); Red Cell Distribution Width 17.8 % (12.1-15.1); White Blood Count 7.4 10^3/uL (4.0-10.0)
[2022-09-26] MEDS: quetiapine 100 mg Tablet 200 MG PO (20:09)
--- NOTE | 2022-09-26 21:48 | PC.NURSE ---
Patient's call light has been answered multiple times by multiple staff members since 7 pm including myself, Damien KIRK, Sheela RN, Sage RN, etc. Before leaving the room I asked patient, Is there anything else I can do for you? Patient states no. Upon walking out of room into hallway, patient hit his call light. Patient has done this multiple times after staff leaves the room.
[2022-09-26 22:30] LABS: Glucose Point of Care 90 mg/dL (70-110)
[2022-09-27] VITALS (15 sets, daily range): BP systolic 123–162; BP diastolic 72–81; PULSE 77–90; RESP 15–20; TEMP 36.4–37.3; O2SAT 88–100
[2022-09-27 04:29] LABS: Glucose Point of Care 90 mg/dL (70-110)
[2022-09-27 04:57] LABS: Basophils % 0.2 %; Eosinophils # 0.1 10^3/uL (0.0-0.8); Eosinophils % 1.1 %; Hematocrit 24.9 % (42.0-52.0); Hemoglobin 7.6 g/dL (11.7-16.6); Lymphocytes # 0.8 10^3/uL (0.8-4.8); Lymphocytes % 17.7 %; Mean Corpuscular HGB Conc 30.5 g/dL (30.0-36.0); Mean Corpuscular Hemoglobin 31.8 pg (28.0-34.0); Mean Corpuscular Volume 104.2 fl (80-94); Mean Platelet Volume 12.2 fL (7.4-10.4); Monocytes # 0.3 10^3/uL (0.2-0.9); Monocytes % 5.9 %; Neutrophils # 3.43 10^3/uL (1.8-7.7); Neutrophils % 75.1 %; Nucleated Red Blood Cells % 0 %; Platelet Count 146 10^3/cmm (130-400); Red Blood Count 2.39 10^6/uL (4.1-5.3); Red Cell Distribution Width 18.1 % (12.1-15.1); White Blood Count 4.6 10^3/uL (4.0-10.0)
[2022-09-27] MEDS: heparin 5,000 unit/mL INJ 1 mL 5000 UNIT SUBCUT ×2 (05:22→18:49)
[2022-09-27 05:30] LABS: Anion Gap 7.6 (5-19); Blood Urea Nitrogen 8 mg/dL (8-23); Calcium 8.3 mg/dL (8.5-10.5); Chloride 94 mmol/L (98-107); Glomerular Filtration Rate 169.6 mL/min (90-130); Glucose 89 mg/dL (65-115); NT Pro B Type Natriuretic Pept 1835 pg/mL (0-125); Osmolality Calculated 286 mOsm/kg (285-295); Potassium 3.6 mmol/L (3.5-5.1); Sodium 139 mmol/L (136-145)
[2022-09-27 05:35] LABS: Carbon Dioxide 41 mmol/L (22-29)
[2022-09-27] MEDS: acetaminophen 325 mg Tablet 650 MG PO ×3 (06:09→18:51)
[2022-09-27] MEDS: sertraline 50 mg Tablet 100 MG PO (06:09)
[2022-09-27] MEDS: ipratropium-albuterol 3 mL Neb INHALATION ×3 (08:53→20:46)
[2022-09-27] MEDS: budesonide 0.5 mg/2 mL Neb INHALATION ×2 (08:54→20:47)
--- NOTE | 2022-09-27 10:14 | PC.SOCIAL ---
IMM note Imm updated with patient at bedside. Copy of page 2 provided. Patient verbalized understanding. Copy in chart initialed, dated and timed.
[2022-09-27] MEDS: HYDROcodone-acetaminophen 5-325 mg Tablet 1 TAB PO (10:41)
[2022-09-27] MEDS: amlodipine 10 mg Tablet PO (10:43)
[2022-09-27] MEDS: carvedilol 12.5 mg Tablet PO ×2 (10:43→18:51)
[2022-09-27] MEDS: lisinopril 20 mg Tablet 40 MG PO (10:43)
[2022-09-27] MEDS: FUROsemide 10 mg/mL SDV 4mL 40 MG IVP ×2 (10:44→18:35)
[2022-09-27 11:30] LABS: Glucose Point of Care 113 mg/dL (70-110)
--- NOTE | 2022-09-27 13:30 | PM.PN ---
Subjective Subjective: Yesterday afternoon, nursing staff were able to get him up to a chair, this morning he tells me that the half tablet of hydrocodone did not help with his pain, he is willing to work to get up to the side of bed this morning, willing to work with physical therapy he complains of shortness of breath and wheezing, also reports decreased energy Vitals/I&O/Wt Last Vital Signs Temp 98.2 F 09/27/22 12:15 Pulse 87 09/27/22 12:15 Resp 18 09/27/22 12:15 BP 126/74 09/27/22 12:15 Pulse Ox 97 09/27/22 12:15 O2 Del Method 09/27/22 08:00 O2 Flow Rate 5 09/27/22 08:00 FiO2 50 09/24/22 13:36 09/26/22 09/27/22 09/27/22 22:59 06:59 14:59 Intake Total 120 / 720 120 / 120 Output Total 1999 / 1999 Balance -1880 / -1280 120 / 120 Weight last 48 hrs Weight 88.995 kg Physical Exam Const: COMMON NORMALS: no acute distress and patient oriented x3 Resp: COMMON NORMALS: normal respiratory effort, No retractions and No use of accessory muscles AUSCULTATION: crackles Cardio: COMMON NORMALS: regular rate, regular rhythm, S1 normal heart sound present and S2 normal heart sound present RATE: regular rate RHYTHM: regular rhythm HEART SOUNDS: S1 normal heart sound present and S2 normal heart sound present GI: COMMON NORMALS: Normal to inspection, nondistended, normoactive bowel sounds present and non-tender Extremity: COMMON NORMALS: no clubbing, cyanosis or edema, no calf tenderness and no pedal edema Neuro: COMMON NORMALS: patient oriented x3 Psych: COMMON NORMALS: mental status grossly normal Urinary Catheter Management: Nuñez: Cath Placed During This Visit: yes, but has since been removed by the nurse Reason for Continuing Indwelling Catheter: Other Urinary Catheter Date of Insertion: 09/21/22 Urinary Catheter Time of Insertion: 11:00 Date Urinary Catheter Removed: 09/20/22 Time Urinary Catheter Discontinued: 15:00 Data 09/27/22 04:20 09/27/22 04:20 A&P Assessment and plan (1) Goals of care, counseling/discussion: (2) Anxiety and depression: (3) Hypernatremia: (4) Thrombocytopenia: (5) Infection due to ESBL-producing Klebsiella pneumoniae: (6) S/P exploratory laparotomy: (7) Septic shock: (8) DEMETRIS (acute kidney injury): (9) Hypocalcemia: (10) Hypomagnesemia: (11) Atrial fibrillation: (12) Intractable pain: (13) Chronic back pain: (14) Traumatic compression fracture of thoracic vertebra: (15) Traumatic compression fracture of T12 thoracic vertebra: (16) Severe depression: (17) CHF exacerbation: (18) Pulmonary edema: Plan Intractable pain, intractable back pain -Has had a history of spinal fusion Lumbar ct 2021 3. Chronic appearing 30% anterior compression fracture of T12. 4. Low density bone consistent with osteopenia/osteoporosis. 5. Dextroscoliosis. 6. Missing bone in the L1 and L2 pedicular areas consistent with sequela from previous bilateral L1-L2 posterior pedicular screws which have been removed. 7. Bilateral L5-S1 facet hypertrophy and degenerative change. thoracic ct 2021 1. Multilevel spinal fusion of the spinous processes consistent with postoperative change versus ankylosing spondylitis. 2. Status post right T12 laminectomy. 3. Prominent Schmorl's node in the superior portion of the T12 vertebral body with chronic appearing 10% compression fracture. 4. Air within the T11 vertebral body suggesting possible osteonecrosis. -Has had a history of compression fractures, spinal fusion -Continue Ultram -Increase hydrocodone to 1 tablet 5-325 every 6 hours as needed, -Encourage up out of bed, at least today up to the side of the bed hopefully into a chair, work with physical therapy - Acute diastolic CHF exacerbation with pulm edema -Continues to be fluid overloaded -We will give 2 dose of Lasix today Decreased energy -With anemia, will give him 1 unit PRBC, with Lasix Severe depression -More energized this morning -Zoloft, Seroquel -Continue Zoloft -Psychiatry consulted Insomnia, continue Seroquel Small bowel obstruction Status post exploratory laparotomy Patient is on dysphagia diet Speech therapy on daily basis Severe deconditioning Awaiting long term placement Talked with Dr. Dowling ESBL pneumonia extubated 09/17 Finished 10 day? IV antibiotic course, finished course 09/19 Remained afebrile Continue pulmonary toilet, incentive spirometer flutter valve Aspiration precautions Acute on chronic anemia -Hemoglobin 7.6 -Hemoccult stool negative -Iron levels low at 54 -Does take Eliquis at home, currently on hold due to anemia -We will give 1 unit PRBC -Currently on DVT prophylaxis, had heparin DEMETRIS: Resolved A-fib without RVR Continue AV angelica blocking agent Not a candidate of anticoagulating agent because of sepsis induced A-fib Coronary disease status post stent no active chest pain Diabetes: Continue to monitor blood sugars, low-dose sliding scale Goals of care discussed with the patient and his , DNR/DNI, working on long term placement Hypokalemia: Replace as did Low TSH, WNL Physical therapy: Encourage patient to get out of bed to chair Discharge planning: Awaiting discharge to SNF once level 2 care approved Spoke with psychiatry, looked at Dr. Dowling's note, spoke with nursing staff Plan for today up to chair, increase hydrocodone, 2 doses of IV Lasix, will have blood, monitor respiratory status closely Attestations Medical Necessity Statement*: Patient requires hospital mission for anemia, fluid overload, pulmonary edema, back pain Procedures Arterial Line Size (Gauge): 20 Diagnoses Goals of care, counseling/discussion Z71.89 Anxiety and depression F41.9; F32.A Hypernatremia E87.0 Thrombocytopenia D69.6 Infection due to ESBL-producing Klebsiella pneumoniae A49.8; Z16.12 S/P exploratory laparotomy Z98.890 Septic shock A41.9; R65.21 DEMETRIS (acute kidney injury) N17.9 Hypocalcemia E83.51 Hypomagnesemia E83.42 Atrial fibrillation I48.91 Intractable pain R52 Chronic back pain M54.9; G89.29 Traumatic compression fracture of thoracic vertebra S22.000A Traumatic compression fracture of T12 thoracic vertebra S22.080A Severe depression F32.2 CHF exacerbation I50.9 Pulmonary edema J81.1
[2022-09-27] MEDS: TRAMadol 50 mg Tablet PO ×2 (14:08→20:28)
[2022-09-27] MEDS: scopolamine 1.5 Patch 1 PATCH TRANSDERMA (14:09)
--- NOTE | 2022-09-27 16:15 | P.NPUCON_ITS ---
Providers/Reason for Consult Consulting Physican/Specialty*: Paul Pantoja MD Reason for Consult*: agitation, depression Attending Physician: Nitin Kohli MD Primary Care Provider: DARSHANA Gallo Psych Consult HPI History of Present Illness Jeremie Alexander is a 61 year old male seen in room today accompanied by his . He continued to struggle with managing pain as he reported intractable back pain. He reported having problems with dealing with being elevated at greater than 30 degrees as he repeatedly perseverated about wanting his bed lowered despite staff informing him of the significant risk associated with it. He had reported feeling depressed but minimized any thoughts of hurting himself at this time. He had reported some improvement with the increase in Seroquel and increase in Zoloft at this time. Meds Home Medications and Allergies Home Medications Medication Instructions Recorded Confirmed Last Taken Type tamsulosin 0.4 mg capsule 0.4 mg PO QAM 11/23/20 09/12/22 09/11/22 History metoprolol succinate 25 mg 25 mg PO BID 03/19/22 09/12/22 09/11/22 History tablet,extended release 24 hr lisinopril 40 mg tablet 40 mg PO QAM 03/27/22 09/12/22 09/11/22 History potassium gluconate 595 mg (99 mg) 595 mg PO QAM 03/27/22 09/12/22 09/11/22 History tablet apixaban 5 mg tablet (Eliquis) 5 mg PO BID #60 tabs 03/31/22 09/12/22 09/11/22 Rx furosemide 40 mg tablet (Lasix) 40 mg PO QAM #30 tabs 03/31/22 09/12/22 09/05/22 Rx melatonin 5 mg capsule 5 mg PO BEDTIME #30 caps 03/31/22 09/12/22 09/11/22 Rx wvcuafkc-wdb-diptg acid 300 1 tab PO DAILY 03/31/22 09/12/22 09/11/22 History mcg-lycopene 600 mcg-lutein 300 mcg tablet (Centrum Silver Men) loperamide 2 mg capsule (Imodium 2 mg PO QID PRN loose stool #14 04/23/22 09/12/22 Unknown Rx A-D) caps omeprazole 20 mg capsule,delayed 20 mg PO BID 30 days #60 caps 0909/12/22 09/11/22 Rx release CUFF AND COLLAR SLING #1 ea 05/07/22 09/12/22 Unknown Rx dicyclomine 20 mg tablet 20 mg PO TID #90 tabs 05/18/22 09/12/22 Unknown Rx methocarbamol 500 mg tablet 500 mg PO TID PRN muscle spasm, 05/19/22 09/12/22 Unknown Rx pain 7 days #21 tabs rosuvastatin 20 mg tablet 20 mg PO BEDTIME #30 tabs 05/19/22 09/12/22 09/11/22 Rx acetaminophen 500 mg tablet 500 mg PO Q6H PRN Pain 07/23/22 09/12/22 Unknown History (Tylenol Extra Strength) sertraline 50 mg tablet (Zoloft) 50 mg PO QAM #30 tabs 08/26/22 09/12/22 09/11/22 Rx tizanidine 4 mg tablet 4 mg PO BID PRN muscle spasticity 08/31/22 09/12/22 Unknown Rx #60 tabs hydroxyzine pamoate 25 mg capsule 25 mg PO BEDTIME PRN sleep 09/12/22 09/12/22 Unknown History ondansetron 8 mg disintegrating 8 mg PO Q8H PRN Nausea 09/12/22 09/12/22 Unknown History tablet quetiapine 200 mg tablet (Seroquel) 200 mg PO BEDTIME 09/12/22 09/12/22 09/11/22 History Allergies Allergy/AdvReac Type Severity Reaction Status Date / Time ticagrelor [From Brilinta] Allergy Unknown ALGY-Hives Verified 09/14/22 09:13 trazodone Allergy Unknown ADR-Nightma Verified 09/14/22 09:13 re Current Medications Current Medications Generic Name Dose Route Start Last Admin Trade Name Freq PRN Reason Stop Dose Admin Acetaminophen 650 mg 09/24/22 12:00 09/27/22 14:08 Acetaminophen 325 Mg Tablet PO 650 mg Q6H SAVANAH Administration Hydrocodone Bitart/Acetaminophen 1 tab 09/27/22 10:24 09/27/22 10:41 Hydrocodone-Acetaminophen 5-325 Mg Tablet PO 1 tab Q6H PRN Administration MODERATE PAIN Albuterol/Ipratropium 3 ml 09/17/22 20:00 09/27/22 14:19 Ipratropium-Albuterol 3 Ml Neb INHALATION 3 ml Q6H.RESP SAVANAH Administration Amlodipine Besylate 10 mg 09/19/22 16:40 09/27/22 10:43 Amlodipine 10 Mg Tablet PO 10 mg DAILY SAVANAH Administration Budesonide 0.5 mg 09/17/22 20:00 09/27/22 08:54 Budesonide 0.5 Mg/2 Ml Neb INHALATION 0.5 mg BID.RESPIRATORY SAVANAH Administration Carvedilol 12.5 mg 09/19/22 18:00 09/27/22 10:43 Carvedilol 12.5 Mg Tablet PO 12.5 mg BID SAVANAH Administration Chlorhexidine Gluconate 1 applic 09/17/22 01:00 09/17/22 06:56 Chlorhexidine Gluconate 4% Btl 118 Ml TOPICAL 1 applic DAILY PRN Administration USE W/ BEDBATH WHILE INTUBATED Heparin Sodium (Porcine) 5,000 unit 09/19/22 17:30 09/27/22 05:22 Heparin 5,000 Unit/Ml Inj 1 Ml SUBCUT 5,000 unit Q12H SAVANAH Administration Hydralazine HCl 10 mg 09/18/22 15:20 09/22/22 20:06 Hydralazine 20 Mg/Ml Inj 1 Ml IVP 10 mg Q6H PRN Administration Systolic bp more than 170 mmhg Insulin Human Lispro 0 unit 09/14/22 10:18 09/27/22 12:08 Insulin Lispro 100 Unit/1 Ml SUBCUT Not Given Q6H [facility] Protocol Lanolin 1 applic 09/18/22 03:52 09/18/22 03:57 Lanolin Oint 7 Gm TOPICAL 1 applic PRN PRN Administration DRYNESS Lisinopril 40 mg 09/17/22 05:00 09/27/22 10:43 Lisinopril 20 Mg Tablet PO 40 mg DAILY SAVANAH Administration Magnesium Hydroxide 30 ml 09/17/22 10:40 09/27/22 10:43 Magnesium Hydroxide 30 Ml Udc PO Not Given DAILY SAVANAH Ondansetron HCl 4 mg 09/12/22 18:17 09/23/22 06:32 Ondansetron 2 Mg/Ml Sdv 2 Ml IVP 4 mg Q8H PRN Administration vomiting, or N/V if npo Pantoprazole Sodium 40 mg 09/12/22 18:30 09/26/22 18:36 Pantoprazole 40 Mg Sdv IVP 40 mg Q24H SAVANAH Administration Quetiapine Fumarate 200 mg 09/25/22 21:00 09/26/22 20:09 Quetiapine 100 Mg Tablet PO 200 mg BEDTIME SAVANAH Administration Scopolamine 1 patch 09/21/22 10:15 09/27/22 14:09 Scopolamine 1.5 Patch TRANSDERMA 1 patch Q3D SAVANAH Administration Senna/Docusate Sodium 1 tab 09/17/22 18:00 09/27/22 10:43 Sennosides-Docusate Tablet PO Not Given BID SAVANAH Sertraline HCl 100 mg 09/26/22 06:00 09/27/22 06:09 Sertraline 50 Mg Tablet PO 100 mg QAM SAVANAH Administration Tizanidine HCl 4 mg 09/14/22 10:17 09/17/22 14:06 Tizanidine 4 Mg Tablet PO 4 mg BID PRN Administration muscle spasticity Tramadol HCl 50 mg 09/24/22 20:00 09/27/22 14:08 Tramadol 50 Mg Tablet PO 50 mg Q8H SAVANAH Administration PFSH NPU PFSH: Medical History (Updated 09/27/22 @ 13:32 by Nitin Kohli MD) Acute ischemic stroke Afib Anxiety and depression Atrial fibrillation Atrial fibrillation, chronic Back pain CAD (coronary artery disease) Chest pain Chest pain Chronic anticoagulation Chronic thoracic back pain Compression fracture Diabetes Displaced fracture of proximal end of humerus Flu-like symptoms Focal sensory loss History of posttraumatic stress disorder (PTSD) HTN (hypertension) Humerus fracture Hypertensive urgency Intractable pain Lacunar infarction Major depressive disorder, 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, 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 Pacemaker Pneumonia Post-traumatic stress disorder, chronic Psychiatric care SSS (sick sinus syndrome) Suicidal thoughts Syncope Tachycardia Transaminitis Traumatic compression fracture of T12 thoracic vertebra Traumatic compression fracture of thoracic vertebra Surgical History Gastric banding status S/P kyphoplasty S/P placement of cardiac pacemaker Status post cholecystectomy Family History Father CAD (coronary artery disease) Mother Cancer Social History Smoking and tobacco status: former smoker (quit 15 years ago) Second hand smoke exposure: No Alcohol intake: never Household members: spouse Housing: House History of recent travel: No Mental Status Exam MSE Comments: Patient is lying in bed he appeared somewhat older than his stated age she appeared weak and in moderate distress. He appeared to recognize the adjusto writer operator of this note and was friendly and cooperative on interview. He did not endorse any suicidal or homicidal ideation. He he did not appear to be r esponding to internal stimuli. He was alert and oriented person place and time. He described his mood as in pain . His affect appeared restricted in range and mood congruent. His thought process was linear logical and goal-directed. His recent remote memory appeared grossly intact. His insight appeared limited. His judgment at this time was fair. His impulse control remained limited. Vitals/I&O/Wt Last Vital Signs Temp 97.7 F 09/27/22 14:30 Pulse 85 09/27/22 14:30 Resp 18 09/27/22 14:30 BP 148/78 09/27/22 14:30 Pulse Ox 91 09/27/22 14:30 O2 Del Method 09/27/22 14:00 O2 Flow Rate 4 09/27/22 14:00 FiO2 50 09/24/22 13:36 09/27/22 09/27/22 09/27/22 06:59 14:59 22:59 Intake Total 120 / 120 350 / 470 Balance 120 / 120 350 / 470 Weight last 48 hrs Weight 88.995 kg Physical Exam Urinary Catheter Management: Nuñez: Cath Placed During This Visit: yes, but has since been removed by the nurse Reason for Continuing Indwelling Catheter: Other Urinary Catheter Date of Insertion: 09/21/22 Urinary Catheter Time of Insertion: 11:00 Date Urinary Catheter Removed: 09/20/22 Time Urinary Catheter Discontinued: 15:00 Data NPU 09/27/22 04:20 09/27/22 04:20 A&P Assessment and plan (1) Major depressive disorder: (2) PTSD (post-traumatic stress disorder): (3) Pulmonary edema: (4) CHF exacerbation: (5) Chronic back pain: (6) Intractable pain: (7) Traumatic compression fracture of T12 thoracic vertebra: (8) Traumatic compression fracture of thoracic vertebra: Plan 61-year-old with PTSD and major depressive disorder currently receiving outpatient treatment at the [facility] with significant medical complaints including problems with unresolved chronic intractable pain. I will continue to follow and make medication recommendations attempt to work with patient on managing pain better. In the past I have encouraged patient to work on distraction on a basic level though he has thus far not utilized any thing of this nature. 1. Continue zoloft 100mg in am, and seroquel 200mg at night. 2. Patient has extremely poor coping skills and inability to manage pain, suggest distraction techniques, encourage distraction with staff as well. 3. Will follow. Involuntary Hold Information 2 96 Hour Hold: 96 Hour Involuntary Admission: No Attestations NPU Medical Necessity Statement*: Not candidate for acute inpatient hospitalization, will follow on consult. Coding Level of Care Code Acute Code for [facility] Fwd Diagnoses Major depressive disorder F32.9 PTSD (post-traumatic stress disorder) F43.10 Pulmonary edema J81.1 CHF exacerbation I50.9 Chronic back pain M54.9; G89.29 Intractable pain R52 Traumatic compression fracture of T12 thoracic vertebra S22.080A Traumatic compression fracture of thoracic vertebra S22.000A
[2022-09-27 17:09] LABS: Glucose Point of Care 104 mg/dL (70-110)
[2022-09-27] MEDS: pantoprazole 40 mg SDV IVP (18:50)
[2022-09-27] MEDS: sennosides-docusate Tablet 1 TAB PO (18:51)
[2022-09-27] MEDS: quetiapine 100 mg Tablet 200 MG PO (20:29)
--- NOTE | 2022-09-27 21:19 | PC.NURSE ---
Was called to pts room due to multiple complaints from patient and irate phone call from . Per report, pt was very upset and yelling at staff because reportedly no one had rounded on pt for 4 hours . Pt demanded his HOB be decreased less than 30 degrees. Pt care nurse and this nurse explained risks associated with aspiration, pt stated I was comfortable last night and thats the way I want to lay . Primary nurse to notify physician. Pt repositioned,gown and bed sheets changed. Pt care transferred to another nurse due to pt yelling, cussing and belittling nursing staff. This nurse personally answered call light 3 times in 15 minute period. Multiple other staff members attended to pt during that time as well. Nurse senior insight manager attempted to call , without success. Hourly rounding log placed on pt wall for staff to sign to ensure entrance to pt room during frequent rounding. Will continue to check on pt through shift.
--- NOTE | 2022-09-27 21:27 | PC.NURSE ---
Patient is supposed to have his head of bed 30 degrees or higher for aspiration precautions but is absolutely refusing. He is alert and oriented and him and his have both been belligerent with staff members. Dr. Davison and warehouse foreman notified.
[2022-09-27 23:11] LABS: Glucose Point of Care 84 mg/dL (70-110)
[2022-09-28] VITALS (9 sets, daily range): BP systolic 102–133; BP diastolic 53–75; PULSE 73–87; RESP 14–20; TEMP 36.6–36.8; O2SAT 90–97
[2022-09-28] MEDS: ipratropium-albuterol 3 mL Neb INHALATION (03:31)
[2022-09-28 04:19] LABS: Basophils % 0.2 %; Eosinophils # 0.1 10^3/uL (0.0-0.8); Eosinophils % 1.6 %; Hematocrit 28.5 % (42.0-52.0); Hemoglobin 8.7 g/dL (11.7-16.6); Lymphocytes # 0.9 10^3/uL (0.8-4.8); Lymphocytes % 16.5 %; Mean Corpuscular HGB Conc 30.5 g/dL (30.0-36.0); Mean Corpuscular Volume 101.4 fl (80-94); Mean Platelet Volume 12.5 fL (7.4-10.4); Monocytes # 0.3 10^3/uL (0.2-0.9); Monocytes % 6.4 %; Neutrophils # 3.86 10^3/uL (1.8-7.7); Neutrophils % 75.1 %; Nucleated Red Blood Cells % 0 %; Platelet Count 153 10^3/cmm (130-400); Red Blood Count 2.81 10^6/uL (4.1-5.3); Red Cell Distribution Width 19.2 % (12.1-15.1); White Blood Count 5.1 10^3/uL (4.0-10.0)
[2022-09-28 04:56] LABS: Anion Gap 7.2 (5-19); Blood Urea Nitrogen 8 mg/dL (8-23); Calcium 8.3 mg/dL (8.5-10.5); Chloride 96 mmol/L (98-107); Glomerular Filtration Rate 219.4 mL/min (90-130); Glucose 84 mg/dL (65-115); NT Pro B Type Natriuretic Pept 1279 pg/mL (0-125); Osmolality Calculated 292 mOsm/kg (285-295); Potassium 3.2 mmol/L (3.5-5.1); Sodium 142 mmol/L (136-145)
[2022-09-28 05:00] LABS: Carbon Dioxide 42 mmol/L (22-29)
[2022-09-28] MEDS: acetaminophen 325 mg Tablet 650 MG PO ×4 (05:07→23:22)
[2022-09-28] MEDS: sertraline 50 mg Tablet 100 MG PO (05:07)
[2022-09-28] MEDS: heparin 5,000 unit/mL INJ 1 mL 5000 UNIT SUBCUT ×2 (05:08→18:26)
[2022-09-28] MEDS: TRAMadol 50 mg Tablet PO ×3 (05:08→20:23)
[2022-09-28 06:51] LABS: Glucose Point of Care 83 mg/dL (70-110)
[2022-09-28] MEDS: albuterol 2.5 mg/3 mL Neb INHALATION ×2 (07:59→14:21)
[2022-09-28] MEDS: budesonide 0.5 mg/2 mL Neb INHALATION (08:00)
[2022-09-28] MEDS: ipratropium 0.5 mg/2.5 mL Neb INHALATION ×2 (08:00→14:21)
[2022-09-28] MEDS: magnesium hydroxide 30 mL UDC PO (09:00)
[2022-09-28] MEDS: HYDROcodone-acetaminophen 5-325 mg Tablet 1 TAB PO ×2 (09:00→15:58)
[2022-09-28] MEDS: lisinopril 20 mg Tablet 40 MG PO (09:01)
[2022-09-28] MEDS: carvedilol 12.5 mg Tablet PO ×2 (09:01→18:27)
[2022-09-28] MEDS: amlodipine 10 mg Tablet PO (09:01)
[2022-09-28] MEDS: sennosides-docusate Tablet 1 TAB PO (09:01)
[2022-09-28 10:58] LABS: Glucose Point of Care 101 mg/dL (70-110)
[2022-09-28] MEDS: potassium chloride ER 20 mEq Tablet 40 MEQ PO ×2 (11:56→18:26)
[2022-09-28] MEDS: FUROsemide 10 mg/mL SDV 4mL 40 MG IVP ×2 (14:51→18:26)
--- NOTE | 2022-09-28 15:27 | PM.PN ---
Subjective Subjective: Patient was seen this morning, he tells me that he continues to have back pain, the hydrocodone is not enough, he needs it more frequently, he does not want to work with physical therapy today did not want to get up into a bed but he promises me to do bed exercises, he promises me that he will try to get up to the side of the bed or even into a chair tomorrow, continues to have crackles and wheezing and shortness of breath, discussed transfusion to help with his energy levels, but he continues to report lack of energy, I discussed my concerns with high risk of DVT and pulmonary embolism and morbidity or mortality associated, if he does not ambulate daily, or at least do bed exercises, as we cannot he voices understanding understanding, all questions answered he tells me he would think about this, but he is not ready to get up out of bed today, he will consider bed exercises Vitals/I&O/Wt Last Vital Signs Temp 98.0 F 09/28/22 11:33 Pulse 76 09/28/22 14:21 Resp 16 09/28/22 14:21 BP 115/69 09/28/22 11:33 Pulse Ox 96 09/28/22 14:21 O2 Del Method 09/28/22 14:21 O2 Flow Rate 4.5 09/28/22 14:21 FiO2 50 09/24/22 13:36 09/28/22 09/28/22 09/28/22 06:59 14:59 22:59 Intake Total 360 / 360 Output Total 500 / 3400 Balance -500 / -2690 360 / 360 Weight last 48 hrs Weight 83 kg Physical Exam Const: COMMON NORMALS: no acute distress and patient oriented x3 Resp: COMMON NORMALS: normal respiratory effort, No retractions and No use of accessory muscles AUSCULTATION: crackles and wheezes Cardio: COMMON NORMALS: regular rate, regular rhythm, S1 normal heart sound present and S2 normal heart sound present RATE: regular rate RHYTHM: regular rhythm HEART SOUNDS: S1 normal heart sound present and S2 normal heart sound present GI: COMMON NORMALS: Normal to inspection, nondistended, normoactive bowel sounds present and non-tender Extremity: COMMON NORMALS: no pedal edema Neuro: COMMON NORMALS: patient oriented x3 Psych: COMMON NORMALS: mental status grossly normal Urinary Catheter Management: Nuñez: Cath Placed During This Visit: yes, but has since been removed by the nurse Reason for Continuing Indwelling Catheter: Other Urinary Catheter Date of Insertion: 09/21/22 Urinary Catheter Time of Insertion: 11:00 Date Urinary Catheter Removed: 09/20/22 Time Urinary Catheter Discontinued: 15:00 Data 09/28/22 02:57 09/28/22 02:57 A&P Assessment and plan (1) Goals of care, counseling/discussion: (2) Anxiety and depression: (3) Hypernatremia: (4) Thrombocytopenia: (5) Infection due to ESBL-producing Klebsiella pneumoniae: (6) S/P exploratory laparotomy: (7) Septic shock: (8) DEMETRIS (acute kidney injury): (9) Hypocalcemia: (10) Hypomagnesemia: (11) Atrial fibrillation: (12) Intractable pain: (13) Chronic back pain: (14) Traumatic compression fracture of thoracic vertebra: (15) Traumatic compression fracture of T12 thoracic vertebra: (16) Severe depression: (17) CHF exacerbation: (18) Pulmonary edema: Plan Intractable pain, intractable back pain -Has had a history of spinal fusion Lumbar ct 2021 3. Chronic appearing 30% anterior compression fracture of T12. 4. Low density bone consistent with osteopenia/osteoporosis. 5. Dextroscoliosis. 6. Missing bone in the L1 and L2 pedicular areas consistent with sequela from previous bilateral L1-L2 posterior pedicular screws which have been removed. 7. Bilateral L5-S1 facet hypertrophy and degenerative change. thoracic ct 2021 1. Multilevel spinal fusion of the spinous processes consistent with postoperative change versus ankylosing spondylitis. 2. Status post right T12 laminectomy. 3. Prominent Schmorl's node in the superior portion of the T12 vertebral body with chronic appearing 10% compression fracture. 4. Air within the T11 vertebral body suggesting possible osteonecrosis. -Has had a history of compression fractures, spinal fusion -Continue Ultram -Increase hydrocodone to 1 tablet 5-325 every 4 hours as needed, -Encourage up out of bed, at least today up to the side of the bed hopefully into a chair, work with physical therapy -Declines for today Acute diastolic CHF exacerbation with pulm edema -Continues to be fluid overloaded -We will give 2 dose of Lasix today Decreased energy -Status post 1 unit PRBC Severe depression -More energized this morning -Francisco Norwoodl -Continue Zoloft -Psychiatry consulted Insomnia, continue Seroquel Small bowel obstruction Status post exploratory laparotomy Patient is on dysphagia diet Speech therapy on daily basis Severe deconditioning Awaiting long term placement Talked with Dr. Dowling ESBL pneumonia extubated 09/17 Finished 10 day? IV antibiotic course, finished course 09/19 Remained afebrile Continue pulmonary toilet, incentive spirometer flutter valve Aspiration precautions Acute on chronic anemia -Hemoglobin 8.7 -Hemoccult stool negative -Iron levels low at 54 -Does take Eliquis at home, currently on hold due to anemia -Status post 1 unit PRBC -Currently on DVT prophylaxis, had heparin DEMETRIS: Resolved A-fib without RVR Continue AV agnelica blocking agent Not a candidate of anticoagulating agent because of sepsis induced A-fib Not a candidate for full dose anticoagulation due to persistent anemia Coronary disease status post stent no active chest pain Diabetes: Continue to monitor blood sugars, low-dose sliding scale Goals of care discussed with the patient and his , DNR/DNI, working on long term placement Hypokalemia: Replace as needed Low TSH, WNL Physical therapy: Encourage patient to get out of bed to chair Discharge planning: Awaiting discharge to SNF once level 2 care approved Spoke with psychiatry, looked at Dr. Dowling's note, spoke with nursing staff Plan for today increase hydrocodone, up to a chair, diuresis Attestations Medical Necessity Statement*: Patient requires admission for persistent fluid overload, deconditioning, will replace potassium Procedures Arterial Line Size (Gauge): 20 Diagnoses Goals of care, counseling/discussion Z71.89 Anxiety and depression F41.9; F32.A Hypernatremia E87.0 Thrombocytopenia D69.6 Infection due to ESBL-producing Klebsiella pneumoniae A49.8; Z16.12 S/P exploratory laparotomy Z98.890 Septic shock A41.9; R65.21 DEMETRIS (acute kidney injury) N17.9 Hypocalcemia E83.51 Hypomagnesemia E83.42 Atrial fibrillation I48.91 Intractable pain R52 Chronic back pain M54.9; G89.29 Traumatic compression fracture of thoracic vertebra S22.000A Traumatic compression fracture of T12 thoracic vertebra S22.080A Severe depression F32.2 CHF exacerbation I50.9 Pulmonary edema J81.1
[2022-09-28 17:28] LABS: Glucose Point of Care 119 mg/dL (70-110)
[2022-09-28] MEDS: pantoprazole 40 mg SDV IVP (18:26)
[2022-09-28] MEDS: quetiapine 100 mg Tablet 200 MG PO (20:24)
[2022-09-28 22:34] LABS: Glucose Point of Care 88 mg/dL (70-110)
[2022-09-29] VITALS (9 sets, daily range): BP systolic 97–128; BP diastolic 66–80; PULSE 71–101; RESP 16–18; TEMP 36.5–37.5; O2SAT 90–100
[2022-09-29] MEDS: albuterol 2.5 mg/3 mL Neb INHALATION ×3 (01:27→13:41)
[2022-09-29] MEDS: ipratropium 0.5 mg/2.5 mL Neb INHALATION ×3 (01:27→13:41)
[2022-09-29] MEDS: TRAMadol 50 mg Tablet PO ×2 (04:34→12:38)
[2022-09-29] MEDS: heparin 5,000 unit/mL INJ 1 mL 5000 UNIT SUBCUT (04:35)
[2022-09-29 05:23] LABS: Basophils % 0.4 %; Eosinophils # 0.1 10^3/uL (0.0-0.8); Eosinophils % 2.5 %; Hematocrit 30.2 % (42.0-52.0); Hemoglobin 9.4 g/dL (11.7-16.6); Lymphocytes # 0.8 10^3/uL (0.8-4.8); Lymphocytes % 15.9 %; Mean Corpuscular HGB Conc 31.1 g/dL (30.0-36.0); Mean Corpuscular Volume 102.7 fl (80-94); Mean Platelet Volume 11.5 fL (7.4-10.4); Monocytes # 0.4 10^3/uL (0.2-0.9); Monocytes % 7.8 %; Neutrophils # 3.82 10^3/uL (1.8-7.7); Nucleated Red Blood Cells % 0 %; Platelet Count 184 10^3/cmm (130-400); Red Blood Count 2.94 10^6/uL (4.1-5.3); Red Cell Distribution Width 18.9 % (12.1-15.1); White Blood Count 5.2 10^3/uL (4.0-10.0)
[2022-09-29 05:29] LABS: Glucose Point of Care 88 mg/dL (70-110)
[2022-09-29] MEDS: sertraline 50 mg Tablet 100 MG PO (05:59)
[2022-09-29] MEDS: acetaminophen 325 mg Tablet 650 MG PO ×2 (05:59→12:38)
[2022-09-29 06:04] LABS: Anion Gap 5.8 (5-19); Blood Urea Nitrogen 8 mg/dL (8-23); Calcium 8.6 mg/dL (8.5-10.5); Chloride 98 mmol/L (98-107); Glomerular Filtration Rate 169.6 mL/min (90-130); Glucose 85 mg/dL (65-115); NT Pro B Type Natriuretic Pept 836 pg/mL (0-125); Osmolality Calculated 292 mOsm/kg (285-295); Potassium 3.8 mmol/L (3.5-5.1); Sodium 142 mmol/L (136-145)
[2022-09-29 06:10] LABS: Creatinine Clr Calc Pharmacy 149.6444
[2022-09-29 06:13] LABS: Carbon Dioxide 42 mmol/L (22-29)
[2022-09-29] MEDS: budesonide 0.5 mg/2 mL Neb INHALATION (08:10)
[2022-09-29] MEDS: HYDROcodone-acetaminophen 5-325 mg Tablet 1 TAB PO ×2 (08:38→16:21)
[2022-09-29] MEDS: carvedilol 12.5 mg Tablet PO (08:38)
[2022-09-29] MEDS: amlodipine 10 mg Tablet PO (08:39)
[2022-09-29] MEDS: lisinopril 20 mg Tablet 40 MG PO (08:39)
[2022-09-29] MEDS: sennosides-docusate Tablet 1 TAB PO (08:40)
[2022-09-29] MEDS: magnesium hydroxide 30 mL UDC PO (08:40)
[2022-09-29 11:29] LABS: Glucose Point of Care 97 mg/dL (70-110)
--- NOTE | 2022-09-29 11:57 | PC.SOCIAL ---
IMM Update pg 2 of IMM updated and reviewed w/ patient. Copy provided and copy in chart dated, and initialed.
[2022-09-29] MEDS: ondansetron 2 mg/ML SDV 2 mL 4 MG IVP (12:39)
--- NOTE | 2022-09-29 12:40 | P.DS_ITS ---
Discharge Providers Date of Admission: 09/12/22 19:11 Date of Discharge: September 29, 2022 Attending Provider at Admission: Shena Saucedo MD Attending Provider at Discharge: Nitin Kohli MD Primary Care Provider: DARSHANA Gallo Diagnoses at Discharge Discharge Diagnosis (1) Goals of care, counseling/discussion: Status: Acute (2) Anxiety and depression: Status: Acute (3) Hypernatremia: Status: Acute (4) Thrombocytopenia: Status: Acute (5) Infection due to ESBL-producing Klebsiella pneumoniae: Status: Acute (6) S/P exploratory laparotomy: Status: Acute (7) Septic shock: Status: Acute (8) DEMETRIS (acute kidney injury): Status: Acute (9) Hypocalcemia: Status: Acute (10) Hypomagnesemia: Status: Acute (11) Atrial fibrillation: Status: Acute (12) Intractable pain: Status: Acute (13) Chronic back pain: Status: Acute (14) Traumatic compression fracture of thoracic vertebra: Status: Acute (15) Traumatic compression fracture of T12 thoracic vertebra: Status: Acute (16) Severe depression: Status: Acute (17) CHF exacerbation: Status: Acute (18) Pulmonary edema: Status: Acute Reason for Visit Reason for Visit: AMS; HYPOTENSION Hospital Course Hospital Course Jeremie Alexander is a 61 year old male with a past medical history of CAD status post stenting x10, noninsulin-dependent type 2 diabetes mellitus, hypertension, status post ICD placement, history of ventricular tachycardia, history of sick sinus syndrome, depression, atrial fibrillation was on Eliquis and has been out of supply has not taken in the last 2 months, CVA 03/2022, was brought in today with chief complaint of abdominal pain nausea vomiting started 3 days back and since then it has progressively worsened, patient states that he was having hematemesis also Yesterday states a lot. CT abdomen and pelvis done: has Shown??distal small-bowel obstruction. Pertinent labs: WBC 5.4 H&H 12.6/ 38 , PLT : 187 , serum sodium 129 serum potassium 3.9, serum bicarb 17, BUN 35 serum creatinine 2.6 Anion gap 25, lactic acid 7, Urinalysis suggestive of possible UTI Patient was found to be severely hypotensive in the ER, he was given IV fluid hugo manuel, was started on Levophed Patient was admitted to [facility] for small bowel obstruction, patient was intubated, status post exploratory laparotomy, clinically monitored here in the hospital, overall clinically improved, having bowel movements, seen by speech therapy, on dysphagia diet Patient developed ESBL pneumonia during the hospitalization, intubated, receiving antibiotic therapy, overall clinically improved, extubated moved to general medical floors, remained afebrile., Clinically improved. Patient developed acute diastolic CHF exacerbation with pulm edema during his ho spitalization, requiring diuresis, overall clinically improved, discharged on Lasix 40 mg once daily Patient developed acute on chronic anemia during hospitalization, Hemoccult stools negative, does take Eliquis at home, status post 1 unit PRBC does have low iron levels, on discharge Eliquis was placed on hold due to risk of worsening anemia. I had an extensive discussion with patient's, certainly this is a difficult situation, only one hand, he has a risk of worsening anemia, and worsening bleeding, which is associate with significant morbidity and mortality. However on the other hand, he does have a risk of a stroke. Finding this balance will be difficult, for now, we will continue to hold the Eliquis, he should follow-up with cardiology outpatient, follow-up with primary care physic oebd as outpatient in decision will be shared decision-making about when to resume anticoagulation. Hemoglobin discharge 9.4. Nonetheless I referred him to general surgery for consideration of EGD and colonoscopy on in 1 month. I had an extensive discussion about patient about continuing mobility on discharge, doing ankle raises, calf raises, to decrease his risk of DVT. Currently he does have a high risk of DVT we cannot anticoagulate him, due to above, thus he should continue to [facility] mobile at the [facility], and do physical therapy at the [facility], and instructions as above A-fib, discharged on Coreg, held anticoagulation as above In terms of acute on chronic back pain during his hospitalization, difficult to manage during hospitalization, received physical therapy, managed with hydrocodone. Discharged on hydrocodone 5 every 6 hours as needed for pain, and should be used for physical therapy For depression, psychiatry was consulted, Seroquel increased to 200 mg at bedtime Zoloft increased to 100 mg once daily Physical Exam Const: COMMON NORMALS: no acute distress and patient oriented x3 Resp: COMMON NORMALS: normal respiratory effort, No retractions, No use of accessory muscles and clear to auscultation bilaterally AUSCULTATION: clear to auscultation bilaterally Cardio: COMMON NORMALS: regular rate, regular rhythm, S1 normal heart sound present and S2 normal heart sound present RATE: regular rate RHYTHM: regular rhythm HEART SOUNDS: S1 normal heart sound present and S2 normal heart sound present GI: COMMON NORMALS: Normal to inspection, nondistended, normoactive bowel sounds present and non-tender Extremity: COMMON NORMALS: no pedal edema Neuro: COMMON NORMALS: patient oriented x3 Psych: COMMON NORMALS: mental status grossly normal Urinary Catheter Management: Nuñez: Cath Placed During This Visit: yes, but has since been removed by the nurse Reason for Continuing Indwelling Catheter: Accurate Measurement of Urinary Output in Critically Ill Patients Urinary Catheter Date of Insertion: 09/21/22 Urinary Catheter Time of Insertion: 11:00 Date Urinary Catheter Removed: 09/20/22 Time Urinary Catheter Discontinued: 15:00 Discharge Data Studies Completed and Pending Completed Studies During Hospitalization Category Date Time Status CT abdomen pelvis wo con [id number] Stat Cat Scan 09/12/22 15:49 Completed CXRP [XR chest 1V portable [id number]] Routine Exams 09/14/22 15:27 Completed XR KUB portable [id number] Stat Exams 09/12/22 22:37 Completed XR acute abdomen series [id number] Routine Exams 09/17/22 10:38 Completed XR chest 1V portable [id number] Routine Exams 09/13/22 06:00 Completed XR chest 1V portable [id number] Routine Exams 09/14/22 10:19 Completed XR chest 1V portable [id number] Routine Exams 09/21/22 08:53 Completed XR chest 1V portable [id number] Routine Exams 09/25/22 11:39 Completed XR chest 1V portable [id number] Stat Exams 09/12/22 15:44 Completed XR shoulder RT min 2V* [id number] Stat Exams 09/12/22 18:09 Completed US renal BI* [id number] Routine Ultrasound 09/13/22 12:29 Completed Pending at discharge Category Date Time Status Basic Metabolic Panel AM LABS Lab 09/30/22 04:00 Ordered Basic Metabolic Panel AM LABS Lab 10/01/22 04:00 Ordered COVID [SARS Covid-2 Antigen] Routine Lab 09/29/22 12:10 Uncollected Clostridioides Difficile PCR Routine Lab 09/25/22 12:37 Ordered Complete Blood Count w/Auto AM LABS Lab 09/30/22 04:00 Ordered Complete Blood Count w/Auto AM LABS Lab 10/01/22 04:00 Ordered Enteric Bacterial Panel by PCR Routine Lab 09/25/22 12:37 Ordered Enteric Parasite Panel by PCR Routine Lab 09/25/22 12:37 Ordered Immunochemical Fecal OCB Routine Lab 09/25/22 12:37 Ordered Lactoferrin Routine Lab 09/25/22 12:37 Ordered NT Pro B Type Natriuretic Pept QAM Lab 09/30/22 06:00 Ordered NT Pro B Type Natriuretic Pept QAM Lab 10/01/22 06:00 Ordered Radiology Impressions Abdomen/Pelvis CT 09/12/22 15:49 IMPRESSION: 1. Findings as stated above are consistent with a distal small-bowel obstruction. 2. Small bilateral pleural effusions with adjacent compressive atelectasis or pneumonia. COMMENTS: Consistent with the [employer]'s Incidental Findings Committee white paper (J Am Arnaldo Radiol 2018): Any incidental renal lesion less than 1 cm or classified as too small to characterize, or any incidental cystic renal lesion characterized as simple-appearing, is likely benign. No follow-up imaging is recommended for these lesions per consensus recommendations based on imaging criteria. Shoulder X-Ray 09/12/22 18:09 IMPRESSION: There are chronic displaced fractures of the proximal humerus with interval callus formation and possible osseous bridging. These fractures were acute on the prior radiographs. KUB X-Ray 09/12/22 22:37 IMPRESSION: 1. Endotracheal tube tip in place 2 cm above the my. 2. Enteric tube tip below the diaphragm over the gastric bubble. 3. Pacemaker. 4. Right central venous catheter with tip just distal to the atrial caval junction. 5. Patchy bilateral hilar mixed interstitial and airspace infiltrates. Renal Ultrasound 09/13/22 12:29 IMPRESSION: Unremarkable kidneys and bladder. Chest/Abdomen X-ray 09/17/22 10:38 IMPRESSION: 1. NG tube tip is at the diaphragmatic hiatus. The tube should be advanced 10-15 cm for ideal position. 2. Satisfactory right internal jugular central line position. 3. Low lung volumes and subsegmental atelectasis in the lung bases. 4. Persistent small bowel dilation. Chest X-Ray 09/25/22 11:39 Impression: 1. No change in bilateral pulmonary opacities. 2. Cardiac pacemaker and right internal jugular venous catheter remain in the same position. Laboratory Results WBC 5.2 10^3/uL (4.0-10.0) 09/29/22 05:13 Corrected WBC Cancelled 09/18/22 04:28 RBC 2.94 10^6/uL (4.1-5.3) L 09/29/22 05:13 Hgb 9.4 g/dL (11.7-16.6) L 09/29/22 05:13 Hct 30.2 % (42.0-52.0) L 09/29/22 05:13 MCV 102.7 fl (80-94) H 09/29/22 05:13 MCH 32.0 pg (28.0-34.0) 09/29/22 05:13 MCHC 31.1 g/dL (30.0-36.0) 09/29/22 05:13 RDW 18.9 % (12.1-15.1) H 09/29/22 05:13 Plt Count 184 10^3/cmm (130-400) 09/29/22 05:13 MPV 11.5 fL (7.4-10.4) H 09/29/22 05:13 Gran % Cancelled 09/18/22 04:28 Neut % (Auto) 73.0 % 09/29/22 05:13 Lymph % (Auto) 15.9 % 09/29/22 05:13 Cole % (Auto) 7.8 % 09/29/22 05:13 Eos % (Auto) 2.5 % 09/29/22 05:13 Baso % (Auto) 0.4 % 09/29/22 05:13 Neut # (Auto) 3.82 10^3/uL (1.8-7.7) 09/29/22 05:13 Lymph # (Auto) 0.8 10^3/uL (0.8-4.8) 09/29/22 05:13 Cole # (Auto) 0.4 10^3/uL (0.2-0.9) 09/29/22 05:13 Eos # (Auto) 0.1 10^3/uL (0.0-0.8) 09/29/22 05:13 Baso # (Auto) 0.0 10^3/uL (0.0-0.1) 09/29/22 05:13 Absolute Gran (auto) Cancelled 09/18/22 04:28 Nucleated RBC % (auto) 0 % 09/29/22 05:13 Nucleated RBCs # 0.0 /100WBC 09/29/22 05:13 PT 15.10 SECONDS (12.1-14.9) H 09/13/22 03:30 INR 1.15 (0.8-1.2) 09/13/22 03:30 APTT 35.9 SECONDS (23.9-36.7) 09/13/22 03:30 Specimen Type Arterial 09/24/22 12:43 Sample Site Brachial, left 09/24/22 12:43 ABG pH 7.42 (7.35-7.45) 09/24/22 12:43 ABG pCO2 72.6 mmHg (35-45) H* 09/24/22 12:43 ABG pO2 53.4 mmHg (80.0-100.0) L 09/24/22 12:43 ABG HCO3 47.1 mmol/L (22-26) H 09/24/22 12:43 ABG O2 Saturation 85.0 09/24/22 12:43 ABG Base Excess 20.0 mmol/L (-2.0-2.0) H 09/24/22 12:43 Michael Test N/a 09/24/22 12:43 A-a O2 Gradient 22.5 mmHg (5-10) H 09/24/22 12:43 Hematocrit 26.1 % (42-52) L 09/24/22 12:43 Hgb O2 Saturation 83.7 % (95-100) L 09/24/22 12:43 Carboxyhemoglobin 0.3 %THgb (0.4-20.1) L 09/24/22 12:43 Methemoglobin 1.2 % (0.4-1.5) 09/24/22 12:43 Total Hemoglobin 8.5 g/dL (14-18) L 09/24/22 12:43 Sodium 144.0 mmol/L (131-143) H 09/24/22 12:43 Potassium 2.8 mmol/L (3.5-5.0) L 09/24/22 12:43 Glucose 121.0 mg/dL (70-115) H 09/24/22 12:43 Ionized Calcium 1.2 mmol/L (1.1-1.4) 09/24/22 12:43 O2 Delivery Device Nc 09/24/22 12:43 O2 Liters/Min 6.0 % 09/24/22 12:43 FiO2 44.0 % 09/24/22 12:43 Tidal Volume 0.45 09/17/22 04:30 PEEP 5.0 cmH20 09/17/22 04:30 Manufacturing Engineering Technician ID Amh 09/24/22 12:43 Sodium 142 mmol/L (136-145) 09/29/22 05:13 Potassium 3.8 mmol/L (3.5-5.1) 09/29/22 05:13 Chloride 98 mmol/L (98-107) 09/29/22 05:13 Carbon Dioxide 42 mmol/L (22-29) H* 09/29/22 05:13 Anion Gap 5.8 (5-19) 09/29/22 05:13 BUN 8 mg/dL (8-23) 09/29/22 05:13 Creatinine 0.5 mg/dL (0.7-1.2) L 09/29/22 05:13 GFR Calculation 169.6 mL/min (90-130) H 09/29/22 05:13 Glucose 85 mg/dL (65-115) 09/29/22 05:13 POC Glucose 97 mg/dL (70-110) 09/29/22 11:12 Calculated Osmolality 292 mOsm/kg (285-295) 09/29/22 05:13 Lactic Acid 7.0 mmol/L (0.5-2.2) H* 09/12/22 15:43 Lactic Acid (Sepsis) 1.9 mmol/L (0.5-2.2) 09/12/22 23:30 Calcium 8.6 mg/dL (8.5-10.5) 09/29/22 05:13 Ionized Calcium Ian 1.1 mmol/L (1.1-1.4) 09/14/22 04:00 Phosphorus 6.1 mg/dL (2.5-4.5) H 09/13/22 03:30 Magnesium 1.8 mg/dL (1.7-2.3) 09/24/22 18:45 Iron 54 ug/dL (59-158) L 09/14/22 02:35 TIBC 80 mcg/dl 09/14/22 02:35 % Saturation 67.5 % (20-50) H 09/14/22 02:35 Unsat Iron Binding 26 ug/dL (112-347) L 09/14/22 02:35 Total Bilirubin 0.6 mg/dL (0.15-1.2) 09/21/22 03:04 AST 17 U/L (0-40) 09/21/22 03:04 ALT 11 U/L (0-41) 09/21/22 03:04 Alkaline Phosphatase 94 U/L (40-130) 09/21/22 03:04 Ammonia 58 umol/L (16-60) 09/12/22 15:50 Creatine Kinase 46 U/L (39-308) 09/12/22 15:43 Troponin T Baseline 32 ng/L (0-15) H 09/12/22 15:43 Troponin T 120 Minute 24.42 ng/L (0-15) H 09/12/22 17:30 Delta Troponin T -7.58 ABS# (0-10) L 09/12/22 17:30 Troponin T Hi Sens 6Hr 35.05 ng/L (0-15) H 09/12/22 23:30 Troponin T Hi Sens 6Hr Delta 3.05 ng/L (0-12) 09/12/22 23:30 NT-Pro-B Natriuret Pep 836 pg/mL (0-125) H 09/29/22 05:13 Total Protein 4.9 g/dL (6.6-8.7) L 09/21/22 03:04 Albumin 2.8 g/dL (3.5-5.2) L 09/21/22 03:04 Globulin 2.1 g/dL (1.3-4.6) 09/21/22 03:04 Vitamin B12 1567 pg/mL (232-1245) H 09/14/22 02:35 Folate 14.3 ng/mL (4.5-32.2) 09/14/22 Unknown Procalcitonin 1.87 ng/mL (0-0.5) H 09/15/22 03:31 TSH 0.92 uIU/mL (0.27-4.20) 09/26/22 04:07 Free T4 1.36 ng/dL (0.82-1.77) 09/25/22 04:13 Free T3 1.4 PG/ML (2.0-4.4) L 09/26/22 04:07 Urine Color Dark yellow (Yellow) 09/12/22 16:20 Urine Appearance Hazy (CLEAR) A 09/12/22 16:20 Urine pH 5 (5-7) 09/12/22 16:20 Ur Specific Hendrix 1.020 (1.005-1.030) 09/12/22 16:20 Urine Protein Trace (Negative) 09/12/22 16:20 Urine Glucose (UA) Norm (Normal) 09/12/22 16:20 Urine Ketones Negative (Negative) 09/12/22 16:20 Urine Blood Neg (Negative) 09/12/22 16:20 Urine Nitrate Negative (Negative) 09/12/22 16:20 Urine Bilirubin 2+ (Negative) H 09/12/22 16:20 Urine Urobilinogen 1 mg/dL (Negative) H 09/12/22 16:20 Ur Leukocyte Esterase 2+ (Negative) H 09/12/22 16:20 Urine RBC None /hpf (0-2) 09/12/22 16:20 Urine WBC 55-80 /hpf (0-5) H 09/12/22 16:20 Ur Squamous Epith Cells 0-4 /hpf (0-5) H 09/12/22 16:20 Amorphous Sediment Not Reportable 09/12/22 16:20 Urine Bacteria 1+ /hpf (NONE) H 09/12/22 16:20 Urine Mucus 1+ /hpf 09/12/22 16:20 U Random Total Protein 45 mg/dL 09/12/22 23:30 Ur Random Sodium 10 mmol/L 09/12/22 23:30 Urine Creatinine 107 mg/dL (39-259) 09/12/22 23:30 Blood Type O Positive 09/27/22 08:50 Rho(D) Type Positive 09/27/22 08:50 Antibody Screen Negative 09/27/22 08:50 Crossmatch See Detail 09/27/22 08:50 Vitals Last Vital Signs Temp 99.5 F 09/29/22 11:37 Pulse 87 09/29/22 11:37 Resp 17 09/29/22 11:37 BP 119/72 09/29/22 11:37 Pulse Ox 98 09/29/22 11:37 O2 Del Method 09/29/22 11:37 O2 Flow Rate 4 09/29/22 07:39 FiO2 50 09/24/22 13:36 Discharge Plan Discharge Patient Disposition: Xfer SNF Condition: Stable Prescriptions: New hydrocodone-acetaminophen 5-325 mg Tablet 1 tab PO Q6H PRN (Reason: Moderate Pain/breakthrough pain) 7 Days Qty: 28 0RF amlodipine 10 mg Tablet 10 mg PO DAILY 30 Days Qty: 30 0RF carvedilol 12.5 mg Tablet 12.5 mg PO BID 30 Days Qty: 60 0RF sennosides-docusate sodium [Stool Softener-Laxative] 8.6-50 mg Tablet 1 tab PO BID 30 Days Qty: 60 0RF quetiapine 100 mg Tablet 200 mg PO BEDTIME 30 Days Qty: 60 0RF Continued loperamide [Imodium A-D] 2 mg capsule 2 mg PO QID PRN (Reason: loose stool) Qty: 14 0RF (DME) CUFF AND COLLAR SLING See Rx Instructions .Route .MEDSUPPLY Qty: 1 0RF Rx Instructions: As directed Centrum Silver Men 300-600-300 mcg tablet 1 tab PO DAILY melatonin 5 mg capsule 5 mg PO BEDTIME Qty: 30 5RF furosemide [Lasix] 40 mg tablet 40 mg PO QAM Qty: 30 5RF acetaminophen [Tylenol Extra Strength] 500 mg tablet 500 mg PO Q6H PRN (Reason: Pain) tizanidine 4 mg tablet 4 mg PO BID PRN (Reason: muscle spasticity) Qty: 60 0RF rosuvastatin 20 mg tablet 20 mg PO BEDTIME Qty: 30 2RF tamsulosin 0.4 mg Capsule 0.4 mg PO QAM lisinopril 40 mg tablet 40 mg PO QAM potassium gluconate 595 mg (99 mg) Tablet 595 mg PO QAM Seroquel 200 mg tablet 200 mg PO BEDTIME ondansetron 8 mg tablet,disintegrating 8 mg PO Q8H PRN (Reason: Nausea) hydroxyzine pamoate 25 mg capsule 25 mg PO BEDTIME PRN (Reason: sleep) Changed sertraline [Zoloft] 50 mg tablet 100 mg PO QAM Qty: 30 0RF dicyclomine 20 mg tablet 20 mg PO TID PRN (Reason: Abdominal Discomfort) Qty: 90 1RF Discontinued metoprolol succinate 25 mg tablet extended release 24 hr 25 mg PO BID omeprazole 20 mg capsule,delayed release(DR/EC) 20 mg PO BID 30 Days Qty: 60 0RF methocarbamol 500 mg tablet 500 mg PO TID PRN (Reason: muscle spasm, pain) 7 Days Qty: 21 0RF Eliquis 5 mg tablet 5 mg PO BID Qty: 60 5RF Discharge Orders: Discharge Order (Routine); Ordered 09/29/22 Ordered By: Nitin Kohli Referrals: [facility] [Outside] Celestino Rueda DO [Physician] - 1 month Tina Go FNP [Primary Care Provider] - 1-3 days Discharge Diet: Cardiac Discharge Activity: Resume usual activity Patient Instructions: Opioid Safety Activity Restrictions/Additional Instructions: - On discharge I have held your Eliquis 5 mg twice daily due to your anemia, for your atrial fibrillation, please follow-up with your outpatient primary care physician for consideration of resumption -However I have referred you to general surgery for consideration of EGD and colonoscopy as a source of your anemia -For your depression please continue Seroquel, and Zoloft -For your severe back pain, please continue PT OT, please use hydrocodone sparingly for pain, please use for the purpose of physical therapy Discharge Attestations Time Spent in Discharge Care*: greater than 30 min Status at Discharge: Cognitive status at discharge: cognitively intact , Beh avioral status at discharge: cooperative , Quality Metrics Clinical Quality Measures [ No reported AMI, CVA or VTE this stay] Coding Level of Care Code 38689 Total time (in minutes) for Discharge: 45 Diagnoses Goals of care, counseling/discussion Z71.89 Anxiety and depression F41.9; F32.A Hypernatremia E87.0 Thrombocytopenia D69.6 Infection due to ESBL-producing Klebsiella pneumoniae A49.8; Z16.12 S/P exploratory laparotomy Z98.890 Septic shock A41.9; R65.21 DEMETRIS (acute kidney injury) N17.9 Hypocalcemia E83.51 Hypomagnesemia E83.42 Atrial fibrillation I48.91 Intractable pain R52 Chronic back pain M54.9; G89.29 Traumatic compression fracture of thoracic vertebra S22.000A Traumatic compression fracture of T12 thoracic vertebra S22.080A Severe depression F32.2 CHF exacerbation I50.9 Pulmonary edema J81.1
[2022-09-29 13:16] LABS: SARS Covid-2 Antigen negative (Negative)
== END 2022-09-29 16:38 | disposition skilled nursing facility (03) | DRG 853 ==
LOC: ER 17:04 → OR 18:21 → ICU 19:12 → MEDSURG 09-23 13:38
PROVIDERS: Internal Medicine; Internal Medicine Hematology & Oncology; Student in an Organized Health Care Education/Training Program; Admitting Provider Surgery Surgical Critical Care; Emergency Provider Family Medicine; PCP Nurse Practitioner Family; Visit Provider Family Medicine
PROC: 0WJG0ZZ Inspection of Peritoneal Cavity, Open Approach (ICD-10-PCS; CPT 49000; principal; 2022-09-12 19:00)
DX: A41.9 Sepsis, unspecified organism (principal); I50.31 Acute diastolic (congestive) heart failure; R65.21 Severe sepsis with septic shock; J15.8 Pneumonia due to other specified bacteria; K56.7 Ileus, unspecified; I13.0 Hypertensive heart and chronic kidney disease with heart failure and stage 1 through stage 4 chronic kidney disease, or unspecified chronic kidney disease; Z16.12 Extended spectrum beta lactamase (ESBL) resistance; Z99.11 Dependence on respirator [ventilator] status; E87.1 Hypo-osmolality and hyponatremia; N39.0 Urinary tract infection, site not specified; N17.9 Acute kidney failure, unspecified; E87.20 Acidosis, unspecified; I25.10 Atherosclerotic heart disease of native coronary artery without angina pectoris; Z95.5 Presence of coronary angioplasty implant and graft; E11.65 Type 2 diabetes mellitus with hyperglycemia; E11.22 Type 2 diabetes mellitus with diabetic chronic kidney disease; N18.9 Chronic kidney disease, unspecified; Z95.810 Presence of automatic (implantable) cardiac defibrillator; I49.5 Sick sinus syndrome; I48.91 Unspecified atrial fibrillation; T45.516A Underdosing of anticoagulants, initial encounter; Z91.128 Patient's intentional underdosing of medication regimen for other reason; Z86.73 Personal history of transient ischemic attack (TIA), and cerebral infarction without residual deficits; I95.9 Hypotension, unspecified; D64.9 Anemia, unspecified; G89.29 Other chronic pain; M54.6 Pain in thoracic spine; M25.511 Pain in right shoulder; F31.9 Bipolar disorder, unspecified; Z98.1 Arthrodesis status; G47.00 Insomnia, unspecified; E66.9 Obesity, unspecified; Z68.32 Body mass index [BMI] 32.0-32.9, adult; R13.10 Dysphagia, unspecified; Z66 Do not resuscitate; D69.6 Thrombocytopenia, unspecified; E83.51 Hypocalcemia; E83.42 Hypomagnesemia; E86.1 Hypovolemia; S42.201D Unspecified fracture of upper end of right humerus, subsequent encounter for fracture with routine healing; W19.XXXD Unspecified fall, subsequent encounter; Z87.891 Personal history of nicotine dependence; F43.10 Post-traumatic stress disorder, unspecified; Z98.84 Bariatric surgery status
CPT/HCPCS: 12345; 36415; 36416; 36430; 36592; 36600; 51702; 71045; 73030; 74018; 74022; 74176; 76770; 80048; 80051; 80053; 81001; 82140; 82274; 82330; 82550; 82575; 82607; 82746; 82803; 82805; 82962; 83540; 83550; 83605; 83630; 83735; 83880; 84100; 84145; 84156; 84300; 84439; 84443; 84481; 84484; 85014; 85018; 85025; 85610; 85730; 86850; 86900; 86920; 87040; 87070; 87077; 87086; 87186; 87205; 87426; 87493; 87506; 87641; 92507; 92523; 92524; 92526; 92610; 93005; 94002; 94003; 94640; 94660; 94799; 96365; 96366; 96367; 96372; 96374; 96375; 96376; 97110; 97162; 97530; 99285; A4222; C1751; C9113; J0282; J0330; J0360; J1200; J1644; J1815; J1940; J1956; J2185; J2250; J2270; J2405; J2543; J2704; J3010; J3475; J3480; J3490; J7030; J7042; J7050; J7060; J7070; J7120; J7613; J7626; J7644; J7799; L2999; P9016; P9046

== ENCOUNTER → 2022-11-18 10:50 | Outpatient (BNVA) | payer MEDICARE, MEDICAID, SELFPAY | PROVIDERS: PCP Nurse Practitioner Family; Visit Provider Nurse Practitioner Family | DX: Z51.89 Encounter for other specified aftercare (principal) | CPT/HCPCS: 87070; 87077; 87186 ==

== ENCOUNTER 2022-12-21 11:03 | Inpatient (IN) | payer MEDICARE, MEDICAID, SELFPAY ==
[2022-12-21] VITALS (112 sets, daily range): BP systolic 71–146; BP diastolic 35–106; PULSE 54–115; RESP 9–30; TEMP 36.1; O2SAT 79–100; BMI 41.1; BMI 36.4
--- NOTE | 2022-12-21 11:18 | ECG_ITS ---
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 Measurements Intervals [place] Rate: 69 P: 35 [place]: 189 QRS: -6 QRSD: 106 T: 24 QT: 362 QTc: 388 Interpretive Statements SINUS RHYTHM LOW QRS VOLTAGE [QRS DEFLECTION < 0.5/1.0 mV IN LIMB/CHEST LEADS] Compared to ECG 09/13/2022 01:29:24 Low QRS voltage now present Atrial abnormality no longer present Electronically Signed On 12-22-2022 0:09:00 CDT by Carmina Wallace M.D. [email or web address]
--- NOTE | 2022-12-21 11:40 | XRR_ITS ---
PROCEDURE INFORMATION: Exam: XR Chest Exam date and time: 12/21/2022 11:56 AM Age: 62 years old Clinical indication: Shortness of breath and wheezing; Additional info: SOA, wheezing, covid + 5/4 TECHNIQUE: Imaging protocol: Radiologic exam of the chest. Views: 1 view. COMPARISON: CR XR chest 1V portable [id number] 09/25/2022 11:44 AM FINDINGS: Tubes, catheters and devices: There is a dual-lead AICD with leads positioned in the right atrium and right ventricle. Lungs: Lung volumes are low. There is mild ill-defined opacity in the central lower right lung and throughout the left lung which is less apparent than on 09/25/2022. There is no new pulmonary abnormality. Pleural spaces: There is no pleural effusion or pneumothorax. Heart/Mediastinum: The cardiac silhouette is within normal limits of size given AP technique. Bones/joints: Bones are unremarkable. XR/XR chest 1V [id number] IMPRESSION: Decreased opacity in both lungs since 09/25/2022. Nonspecific. Possible residual or recurrent infection, aspiration or edema. Some component of background interstitial lung disease may be present. Consider chest CT for clarification.
--- NOTE | 2022-12-21 12:01 | ED_ITS ---
HPI - SOB/Dyspnea General: Chief Complaint: Shortness of Breath/Dyspnea Stated Complaint: low bp Time Seen by Provider: 12/21/22 11:16 Source: EMS and RN notes reviewed Mode of arrival: EMS Limitations: altered mental status History of Present Illness: HPI Narrative: Patient presented to the emergency department today by EMS brought from a rehab facility. Patient was diagnosed with COVID on 12/10 and was rehabbing at this facility. On Wednesday, they noted patient's blood pressure was low and he received 1 L of fluid. Patient was brought in today as they had to increase his nasal O2. Patient is typically at baseline on nasal cannula 3 L however, he was only satting in the 80% when they had to increase his oxygen. At this time, EMS is not present and, very little transfer of information was given. We are uncertain of the patient's baseline or if there is been any change from his baseline. He does come in with audible crackles. Chart review shows he does have a history of ischemic stroke, A-fib with anticoagulation, coronary artery disease, sick sinus syndrome with pacemaker placed, diabetes, and hypertension. EMS indicated his blood sugar was 156 in route. I was trying to asked the patient whether or not he been running fevers. He did not know. I asked patient about any GI symptoms such as vomiting or diarrhea however, he did not seem able to answer. Review of Systems General: Reports: 10 or more systems reviewed and unremarkable except in HPI and below PFSH ED PFSH: Medical History Acute ischemic stroke Afib Anxiety and depression Atrial fibrillation Atrial fibrillation, chronic Back pain CAD (coronary artery disease) Chest pain Chest pain Chronic anticoagulation Chronic thoracic back pain Compression fracture Diabetes Displaced fracture of proximal end of humerus Flu-like symptoms Focal sensory loss History of posttraumatic stress disorder (PTSD) HTN (hypertension) Humerus fracture Hypertensive urgency Intractable pain Lacunar infarction Major depressive disorder, 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, 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 Pacemaker Pneumonia Post-traumatic stress disorder, chronic Psychiatric care SSS (sick sinus syndrome) Suicidal thoughts Syncope Tachycardia Transaminitis Traumatic compression fracture of T12 thoracic vertebra Traumatic compression fracture of thoracic vertebra Surgical History Gastric banding status S/P kyphoplasty S/P placement of cardiac pacemaker Status post cholecystectomy Family History Father CAD (coronary artery disease) Mother Cancer Social History Smoking and tobacco status: former smoker Second hand smoke exposure: No Alcohol intake: never Substance/Drug Use: never Household members: spouse Housing: House Physical Exam Const: GENERAL APPEARANCE: lethargic ORIENTATION/CONSCIOUSNESS: Yes oriented to person (Response to name when questioned), Yes oriented to place and Yes lethargic HENMT: COMMON NORMALS: normocephalic, atraumatic, hearing grossly normal bilaterally and Normal external nose present HEAD & SCALP: normocephalic and atraumatic NOSE: Normal external nose present Eye: COMMON NORMALS: Equal, round and reactive pupils present, EOMs intact bilaterally and conjunctivae normal CONJUNCTIVA: Yes conjunctivae normal PUPIL: Yes Equal, round and reactive pupils present Neck/C-Spine: COMMON NORMALS: no meningeal signs and no JVD Lymph: LYMPHATIC: no lymphadenopathy noted Resp: OTHER: Patient seemed to have heavy breathing with crackling on expiration. No stridor. No signs of accessory muscle use. He is on 5 L by nasal cannula and pulse ox indicates 100% O2 Cardio: COMMON NORMALS: no JVD and regular rate RATE: regular rate GI: OTHER: Patient with nearly absent bowel sounds. Abdomen is round and somewhat firm. He does not indicate pain or discomfort on palpation during his examination. Back/Pelvis: COMMON NORMALS: negative for no thoracic nor lumbar tenderness Extremity: COMMON NORMALS: normal to inspection and no pedal edema NARRATIVE EXTREMITY EXAM: Patient is brought by EMS and is nonambulatory from the gurney to the bed. Does demonstrate range of motion of his extremities while in the bed but does not bear weight or ambulate here in the emergency department Neuro: SENSORIUM/ORIENTATION: Yes oriented to person (Response to name when questioned), Yes oriented to place and Yes lethargic MENINGEAL SIGNS: Yes no meningeal signs SPEECH: speech normal (Patient answers questioning but, sounds very tired) Psych: COMMON NORMALS: Normal thought process present, cooperative and normal affect THOUGHT PROCESS: Normal thought process present Skin: COMMON NORMALS: no rashes or lesions noted and turgor normal GENERAL SKIN EXAM: no rashes or lesions noted and turgor normal Course Vital Signs: Vital signs: Vital Signs Temperature 97.0 F L 12/21/22 11:14 Pulse Rate 69 12/21/22 15:10 Respiratory Rate 30 H 12/21/22 15:15 Blood Pressure 89/56 12/21/22 15:30 Pulse Oximetry 92 12/21/22 15:15 Oxygen Delivery Me thod Nasal Cannula 12/21/22 14:25 Oxygen Flow Rate 3 12/21/22 14:25 MDM - SOB/Dyspnea Medical Decision Making Patient presented here to the emergency department with very little information provided from [facility]. It is known that patient tested positive for COVID on 12/10. It is known that they had to turn his oxygen up as his 3 L at baseline was only producing oxygen readings in the upper 80s. They noticed shortness of breath and weakness. Patient has a history of sepsis so, with his hypotension did proceed on with a potential septic work-up. Patient was found to have no elevation in his white count but a procalcitonin was elevated. Patient's hemoglobin was 9.9 but is around his normal baseline. Patient was found to have a critically low sodium at 116. I spoke with Dr. Burton regarding this finding and whether or not more aggressive replacement was necessary. He indicated that with the low blood pressure, we can continue to provide normal saline fluid bolus for treatment. Patient's GFR was 68 with a creatinine of only 1.1. Glucose was stable at 118. BNP was 1400. Patient's chest x-ray was relatively nonspecific but, did indicate moving onto a CT if there were concerns. As we do seem to be chasing some sort of infection and, was mostly suspicious of a pneumonia, we proceeded on with a CT of the chest abdomen pelvis as he did have some other abnormal abdominal labs including elevated bili and LFTs. Did discuss the decision to CT the abdomen pelvis with Dr. Burton who agreed. CT showed suspicion for upper lobe pneumonia or pneumonitis. Also indicated the potential for an ileus with noted air distention of colon and fluid and air in the small bowel. They noted no specific transition point. During this work-up, Dr. Burton agreed that patient would most likely wind up being admitted. At this point we did have findings which could explain the presentation and lab work noted by the patient on arrival. I reached out to hospitalist services and was able to speak with Dr. Davison regarding this patient. He indicated ICU admission for this patient due to sepsis and severe hyponatremia. He requested continued IV fluids and placement of a central line. Upon transfer to the ICU, we will defer care to the hospitalist services for further treatment and intervention as needed. Differential Diagnosis Likely acute exacerbation of chronic obstructive airways disease, congestive heart failure and community acquired pneumonia Lab Data 12/21/22 12:30 12/21/22 12:30 Labs/Radiology: Radiology Impressions Chest X-Ray 12/21/22 11:40 IMPRESSION: Decreased opacity in both lungs since 09/25/2022. Nonspecific. Possible residual or recurrent infection, aspiration or edema. Some component of background interstitial lung disease may be present. Consider chest CT for clarification. Chest/Abdomen/Pelvis CT 12/21/22 14:46 IMPRESSION: 1. Lung volumes are decreased with chronic elevation RIGHT hemidiaphragm. 2. Bilateral pulmonary opacifications, greatest in the upper lobes. Pneumonitis versus pneumonia and edema. 3. Marked air distention of the colon with fluid and air in the small bowel. Probably due to an ileus. No transition point is identified. 4. No free air or ascites. 5. Aberrant RIGHT subclavian artery. 6. Prior cholecystectomy. Laboratory Results WBC 6.0 10^3/uL (4.0-10.0) 12/21/22 12:30 RBC 3.01 10^6/uL (4.1-5.3) L 12/21/22 12:30 Hgb 9.9 g/dL (11.7-16.6) L 12/21/22 12:30 Hct 29.9 % (42.0-52.0) L 12/21/22 12:30 MCV 99.3 fl (80-94) H 12/21/22 12:30 MCH 32.9 pg (28.0-34.0) 12/21/22 12:30 MCHC 33.1 g/dL (30.0-36.0) 12/21/22 12:30 RDW 14.9 % (12.1-15.1) 12/21/22 12:30 Plt Count 152 10^3/cmm (130-400) 12/21/22 12:30 MPV 11.7 fL (7.4-10.4) H 12/21/22 12:30 Neut % (Auto) 90.1 % 12/21/22 12:30 Lymph % (Auto) 6.5 % 12/21/22 12:30 [place] % (Auto) 2.5 % 12/21/22 12:30 Eos % (Auto) 0.2 % 12/21/22 12:30 Baso % (Auto) 0.2 % 12/21/22 12:30 Neut # (Auto) 5.42 10^3/uL (1.8-7.7) 12/21/22 12:30 Lymph # (Auto) 0.4 10^3/uL (0.8-4.8) L 12/21/22 12:30 [place] # (Auto) 0.2 10^3/uL (0.2-0.9) 12/21/22 12:30 Eos # (Auto) 0.0 10^3/uL (0.0-0.8) 12/21/22 12:30 Baso # (Auto) 0.0 10^3/uL (0.0-0.1) 12/21/22 12:30 Nucleated RBC % (auto) 0 % 12/21/22 12: Nucleated RBCs # 0.0 /100WBC 12/21/22 12:30 Sodium 116 mmol/L (136-145) L* 12/21/22 12:30 Potassium 5.7 mmol/L (3.5-5.1) H 12/21/22 12:30 Chloride 85 mmol/L (98-107) L 12/21/22 12:30 Carbon Dioxide 23 mmol/L (22-29) 12/21/22 12:30 Anion Gap 13.7 (5-19) 12/21/22 12:30 BUN 23 mg/dL (8-23) 12/21/22 12:30 Creatinine 1.1 mg/dL (0.7-1.2) 12/21/22 12:30 GFR Calculation 68.1 mL/min (90-130) L 12/21/22 12:30 Glucose 118 mg/dL (65-115) H 12/21/22 12:30 Calculated Osmolality 247 mOsm/kg (285-295) L 12/21/22 12:30 Lactic Acid 0.9 mmol/L (0.5-2.2) 12/21/22 15:05 Calcium 7.6 mg/dL (8.5-10.5) L 12/21/22 12:30 Total Bilirubin 1.4 mg/dL (0.15-1.2) H 12/21/22 12:30 AST 71 U/L (0-40) H 12/21/22 12:30 ALT 33 U/L (0-41) 12/21/22 12:30 Alkaline Phosphatase 374 U/L (40-130) H 12/21/22 12:30 NT-Pro-B Natriuret Pep 1339 pg/mL (0-125) H 12/21/22 12:30 Total Protein 5.7 g/dL (6.6-8.7) L 12/21/22 12:30 Albumin 2.2 g/dL (3.5-5.2) L 12/21/22 12:30 Globulin 3.5 g/dL (1.3-4.6) 12/21/22 12:30 Procalcitonin 1.40 ng/mL (0-0.5) H 12/21/22 12:30 Urine Color [place] (Yellow) 12/21/22 15:56 Urine Appearance Cloudy (CLEAR) A 12/21/22 15:56 Urine pH 5 (5-7) 12/21/22 15:56 Ur Specific [place] 1.020 (1.005-1.030) 12/21/22 15:56 Urine Protein Trace (Negative) 12/21/22 15:56 Urine Glucose (UA) Norm (Normal) 12/21/22 15:56 Urine Ketones Negative (Negative) 12/21/22 15:56 Urine Blood 3+ (Negative) H 12/21/22 15:56 Urine Nitrate Negative (Negative) 12/21/22 15:56 Urine Bilirubin 1+ (Negative) H 12/21/22 15:56 Urine Urobilinogen 8 mg/dL (Negative) H 12/21/22 15:56 Ur Leukocyte Esterase 2+ (Negative) H 12/21/22 15:56 Urine RBC 5-10 /hpf (0-2) H 12/21/22 15:56 Urine WBC Too numerous to cnt /hpf (0-5) H 12/21/22 15:56 Ur Squamous Epith Cells None /hpf (0-5) 12/21/22 15:56 Amorphous Sediment Not Reportable 12/21/22 15:56 Urine Bacteria 3+ /hpf (NONE) H 12/21/22 15:56 Discharge Plan Discharge Patient Disposition: Admitted As Inpatient Admit Provider: Lane Davison Clinical Impression: Sepsis associated hypotension, Hyponatremia, Ileus Condition: Stable Coding Level of Care Code ED Office Workforce Planner for Anabela Clark
[2022-12-21 12:45] LABS: Basophils % 0.2 %; Eosinophils % 0.2 %; Hematocrit 29.9 % (42.0-52.0); Hemoglobin 9.9 g/dL (11.7-16.6); Lymphocytes # 0.4 10^3/uL (0.8-4.8); Lymphocytes % 6.5 %; Mean Corpuscular HGB Conc 33.1 g/dL (30.0-36.0); Mean Corpuscular Hemoglobin 32.9 pg (28.0-34.0); Mean Corpuscular Volume 99.3 fl (80-94); Mean Platelet Volume 11.7 fL (7.4-10.4); Monocytes # 0.2 10^3/uL (0.2-0.9); Monocytes % 2.5 %; Neutrophils # 5.42 10^3/uL (1.8-7.7); Neutrophils % 90.1 %; Nucleated Red Blood Cells % 0 %; Platelet Count 152 10^3/cmm (130-400); Red Blood Count 3.01 10^6/uL (4.1-5.3); Red Cell Distribution Width 14.9 % (12.1-15.1)
[2022-12-21] MEDS: sodium chloride 0.9% 1,000 ML 999 ML IV ×2 (12:46→15:00)
[2022-12-21 13:15] LABS: NT Pro B Type Natriuretic Pept 1339 pg/mL (0-125)
[2022-12-21 13:26] LABS: Alanine Aminotransferase 33 U/L (0-41); Albumin Level 2.2 g/dL (3.5-5.2); Alkaline Phosphatase 374 U/L (40-130); Anion Gap 13.7 (5-19); Aspartate Amino Transferase 71 U/L (0-40); Blood Urea Nitrogen 23 mg/dL (8-23); Calcium 7.6 mg/dL (8.5-10.5); Carbon Dioxide 23 mmol/L (22-29); Chloride 85 mmol/L (98-107); Creatinine Clr Calc Pharmacy 78.8651; Globulin 3.5 g/dL (1.3-4.6); Glomerular Filtration Rate 68.1 mL/min (90-130); Glucose 118 mg/dL (65-115); Osmolality Calculated 247 mOsm/kg (285-295); Potassium 5.7 mmol/L (3.5-5.1); Total Bilirubin 1.4 mg/dL (0.15-1.2); Total Protein 5.7 g/dL (6.6-8.7)
[2022-12-21 13:29] LABS: Sodium 116 mmol/L (136-145)
--- NOTE | 2022-12-21 14:46 | CT_ITS ---
WS: [id number] CT CHEST, ABDOMEN AND PELVIS WITH CONTRAST. HISTORY: sepsis TECHNIQUE: Contiguous 5 mm axial imaging performed through the chest, abdomen and pelvis with IV cont rast, oral contrast has not been provided. Coronal and sagittal reformats chest. Coronal and sagittal reformats through the abdomen and pelvis. All CT scans at [facility] use at least one of the se dose optimization techniques: automated exposure control; mA and/or kV adjustment per patient size (includes targeted exams where dose is matched to clinical indication); or iterative reconstruction. CONTRAST: Omnipaque 350; 100 mL IV. DLP: 1525.62 mGy.cm COMPARISON: 09/12/[address]: Moderate elevation RIGHT hemidiaphragm is chronic. Bilateral pulmonary opacifications. Grea ter distribution in the upper lobes. Lung volumes are decreased. Small bilateral pleural effusions. N o pneumothorax. Prior dual lead cardiac pacer placement. There is normal size with a very small peric ardial effusion. No mediastinal or hilar adenopathy. Normal size aorta. Aberrant RIGHT subclavian art claude. Coronary artery calcifications are moderate. Small hiatal hernia. Abdomen CT: Large amount of artifact through the abdomen from patient's body habitus and lines and ca theters. Negative liver and spleen. Prior cholecystectomy. Normal pancreas. Normal adrenal glands. Ve ry mild atherosclerosis aorta. No aneurysm. No renal obstruction. Small bilateral cortical renal cyst s. There is scar stomach is not distended. Postoperative changes suggestive of the gastric sleeve. There is marked dilatation of small bowel loops containing fluid and air. There is marked air distention o f the colon with increasing fecal material in the distal colon. Normal appendix. No mass. Pelvic CT: No free fluid in the pelvis. Soft tissue anasarca. Bilateral hip prostheses causing signif icant artifact obscuring detail in the pelvis. Only partial visualization of the urinary bladder. T11 and T12 kyphoplasty' s. CT/CT chest abdpel [id number] IMPRESSION: 1. Lung volumes are decreased with chronic elevation RIGHT hemidiaphragm. 2. Bilateral pulmonary opacifications, greatest in the upper lobes. Pneumoniti s versus pneumonia and edema. 3. Marked air distention of the colon with fluid and air in the small bowel. P robably due to an ileus. No transition point is identified. 4. No free air or ascites. 5. Aberrant RIGHT subclavian artery. 6. Prior cholecystectomy.
[2022-12-21] MEDS: acetaminophen 325 mg Tablet 650 MG PO ×2 (15:00→20:23)
[2022-12-21] MEDS: iohexol 350 mg/mL 500 mL Btl (per mL) IV (15:39)
[2022-12-21 15:43] LABS: Lactic Sepsis W/Reflex 0.9 mmol/L (0.5-2.2)
[2022-12-21 16:14] LABS: Add Urine Microscopic? YES; Bilirubin Urine 1+ (Negative); Blood Urine 3+ (Negative); Glucose Urine UA Norm (Normal); Ketones Urine Negative (Negative); Leukocyte Esterase Urine 2+ (Negative); Nitrate Urine Negative (Negative); Protein Urine Trace (Negative); Urine Appearance Cloudy (CLEAR); Urine Color Amber (Yellow); Urobilinogen Urine 8 mg/dL (Negative); pH Urine 5 (5-7)
[2022-12-21 16:20] LABS: Add Urine Culture? Yes; Bacteria Urine 3+ /hpf; WBC Urine TOO NUMEROUS TO CNT /hpf (0-5)
--- NOTE | 2022-12-21 17:22 | P.HP_ITS ---
Providers/Chief Complaint Primary Care Provider: DARSHANA Gallo Chief Complaint: low bp History of Present Illness Jeremei Alexander is a 62 year old male with past medical history of?CAD status post stenting x10, noninsulin-dependent type 2 diabetes mellitus, hypertension, status post ICD placement, history of ventricular tachycardia, history of sick sinus syndrome, depression, atrial fibrillation was on Eliquis with most recent discharge on September 29 when he was admitted for small bowel obstruction post ex lap and hospitalization was complicated by prolonged intubation, ESBL pneumonia and UTI leading to septic shock ascending [facility]. Baseline patient lives on 2 L but on presentation to the ER required 4 L. On talking with the patient he states he has been having abdominal pain for last 4 days with nausea and vomiting for last 3 days. Last vomiting was yesterday. Last bowel movement was yesterday evening. Patient is still complaining of abdominal pain which is more generalized, cramping type. On evaluation patient's blood pressure is 79 systolic with heart rate of 80 bpm, patient is awake and alert x3 complaining of abdominal pain with saturation of more than 90% on 3 L. In the ER patient has so far received 2 L of IV fluids only. CT chest abdomen pelvis was done with results as below. Blood work appreciated of acute severe hyponatremia Review of Systems General: Reports: 10 or more systems reviewed and unremarkable except in HPI and below Const: Denies: fever(s), chills, body aches, change in appetite, change in weight, malaise, night sweats, diaphoresis, change in sleep pattern, daytime sleepiness or snoring Eyes: Denies: change in vision, blurry vision, photophobia, eye discomfort or eye discharge ENMT: Denies: throat pain, enlarged tonsils, hoarseness, mouth pain, oral so res, dry mouth, tinnitus, nasal congestion or post nasal drip Card: Denies: chest pain, palpitations, irregular heart rhythm, edema, swelling of feet/ankles, lightheadedness, syncope, pre-syncope, dyspnea on exertion, orthopnea, leg pain with exertion or acrocyanosis Resp: Denies: dyspnea, productive cough, non-productive cough, wheezing, stridor, pain on inspiration, change in phlegm color, hemoptysis or chest congestion GI: Denies: abdominal pain, nausea, vomiting, hematemesis, coffee ground emesis, dysphagia, heartburn, diarrhea, constipation, bloating, GI cramping, change in bowel habits, pain on defecation, hematochezia or melena : Denies: flank pain, difficulty urinating, dysuria, urinary frequency, urinary urgency, urinary hesitancy, urinary dribbling, difficulty starting urination, change in urine stream, nocturia or hematuria Musc: Denies: neck pain, back pain, extremity pain, joint pain, joint swelling, joint redness, joint stiffness or limited range of motion Neuro: Denies: headache(s), numbness in extremities, weakness in extremities, sensory changes, lack of coordination, difficulty walking, frequent falls, dizziness, vertigo, confusion, Slurred speech present, difficulty communicating thoughts or seizure-like activity Psych: Denies: anxiety, depression, mood swings, panic attacks, hopelessness or irritability Endo: Denies: polyuria, polydipsia, tired all the time, cold intolerance, excessive sweating, flushing or heat intolerance Phu/Lymph: Denies: easy bruising or easy bleeding All/Imm: Denies: tongue swelling, facial swelling or acute wheezing Medications/Allergies Home Medications Medication Instructions Recorded Confirmed Last Taken Type tamsulosin 0.4 mg capsule 0.4 mg PO QA 11/23/20 12/21/22 12/21/22 History lisinopril 40 mg tablet 40 mg PO QAM 03/27/22 12/21/22 09/11/22 History potassium gluconate 595 mg (99 mg) 595 mg PO QAM 03/27/22 12/21/22 12/21/22 History tablet furosemide 40 mg tablet (Lasix) 40 mg PO QAM #30 tabs 03/31/22 12/21/22 12/21/22 Rx melatonin 5 mg capsule 5 mg PO BEDTIME #30 caps 03/31/22 12/21/22 12/20/22 Rx loperamide 2 mg capsule (Imodium 2 mg PO QID PRN loose stool #14 04/23/22 12/21/22 Unknown Rx A-D) caps CUFF AND COLLAR SLING #1 ea 05/07/22 12/21/22 Unknown Rx rosuvastatin 20 mg tablet 20 mg PO BEDTIME #30 tabs 05/19/22 12/21/22 12/20/22 Rx acetaminophen 500 mg tablet 500 mg PO Q6H PRN Pain 07/23/22 12/21/22 Unknown History (Tylenol Extra Strength) tizanidine 4 mg tablet 4 mg PO BID PRN muscle spasticity 08/31/22 12/21/22 Unknown Rx #60 tabs ondansetron 8 mg disintegrating 8 mg PO Q8H PRN Nausea 09/12/22 12/21/22 Unknown History tablet quetiapine 200 mg tablet (Seroquel) 200 mg PO BEDTIME 09/12/22 12/21/22 12/20/22 History dicyclomine 20 mg tablet 20 mg PO TID PRN Abdominal 09/29/22 12/21/22 Unknown Rx Discomfort #90 tabs sertraline 50 mg tablet (Zoloft) 100 mg PO QAM #30 tabs 09/29/22 12/21/22 12/21/22 Rx Prostat-Liquid See Rx Instructions .Route .COMPLEX 12/21/22 12/21/22 12/21/22 History amlodipine 10 mg tablet 10 mg PO DAILY 12/21/22 12/21/22 Unknown History carvedilol 12.5 mg tablet 12.5 mg PO BID 12/21/22 12/21/22 Unknown History celecoxib 200 mg capsule 200 mg PO BID 12/21/22 12/21/22 12/21/22 History hydrocodone 5 mg-acetaminophen 325 1 tab PO Q6H 12/21/22 12/21/22 Unknown History mg tablet hxobpxwd-gvd-msips acid 300 1 tab PO DAILY 12/21/22 12/21/22 12/21/22 History mcg-lycopene 600 mcg-lutein 300 mcg tablet (Centrum Silver Men) sennosides 8.6 mg tablet (senna) 8.6 mg PO BID 12/21/22 12/21/22 12/21/22 History Allergies Allergy/AdvReac Type Severity Reaction Status Date / Time ticagrelor [From Brilinta] Allergy Unknown ALGY-Hives Verified 12/21/22 13:40 trazodone Allergy Unknown ADR-Nightma Verified 12/21/22 13:40 re PFSH Acute PFSH: Medical History (Updated 12/21/22 @ 17:[address]ison MD) Acute ischemic stroke Afib Anxiety and depression Atrial fibrillation Atrial fibrillation, chronic Back pain CAD (coronary artery disease) Chest pain Chest pain Chronic anticoagulation Chronic thoracic back pain Compression fracture Diabetes Displaced fracture of proximal end of humerus Disruption of external operation (surgical) wound, not elsewhere classified, subsequent encounter Flu-like symptoms Focal sensory loss History of posttraumatic stress disorder (PTSD) HTN (hypertension) Humerus fracture Hypertensive urgency Intractable pain Lacunar infarction Major depressive disorder, 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, 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 Pacemaker Pneumonia Post-traumatic stress disorder, chronic Pressure ulcer of sacral region, stage 2 Psychiatric care SSS (sick sinus syndrome) Suicidal thoughts Syncope Tachycardia Transaminitis Traumatic compression fracture of T12 thoracic vertebra Traumatic compression fracture of thoracic vertebra Surgical History Gastric banding status S/P kyphoplasty S/P placement of cardiac pacemaker Status post cholecystectomy Family History Father CAD (coronary artery disease) Mother Cancer Social History Smoking and tobacco status: former smoker Second hand smoke exposure: No Alcohol intake: never Substance/Drug Use: never Household members: spouse Housing: House Vitals/I&O/Wt Last Vital Signs Temp 97.0 F L 12/21/22 11:14 Pulse 69 12/21/22 15:10 Resp 30 H 12/21/22 15:15 BP 89/56 12/21/22 15:30 Pulse Ox 92 12/21/22 15:15 O2 Del Method Nasal Cannula 12/21/22 14:25 O2 Flow Rate 3 12/21/22 14:25 12/21/22 12/21/22 12/21/22 06:59 14:59 22:59 Intake Total 1000 / 1000 Balance 1000 / 1000 Weight last 48 hrs Weight 108.862 kg Physical Exam Narrative: General: No acute distress, AO x3, dehydrated, Sick appearing, on 3 L HEENT: PERRLA, pupils bilaterally equal and reactive Chest: Normal vesicular breath sounds, no added sounds, equal good air entry bilaterally CVS: S1-S2 regular, no murmurs, no tachycardia, no gallops, no rubs Abdomen: Soft, distended, generalized tenderness, no organomegaly, sluggish bowel sounds present Neuro: No focal deficits, no facial deformity, AO x3, power 5/5 in all limbs Data 12/21/22 12:30 12/21/22 12:30 Other Labs: Radiology Impressions Chest X-Ray 12/21/22 11:40 IMPRESSION: Decreased opacity in both lungs since 09/25/2022. Nonspecific. Possible residual or recurrent infection, aspiration or edema. Some component of background interstitial lung disease may be present. Consider chest CT for clarification. Chest/Abdomen/Pelvis CT 12/21/22 14:46 IMPRESSION: 1. Lung volumes are decreased with chronic elevation RIGHT hemidiaphragm. 2. Bilateral pulmonary opacifications, greatest in the upper lobes. Pneumonitis versus pneumonia and edema. 3. Marked air distention of the colon with fluid and air in the small bowel. Probably due to an ileus. No transition point is identified. 4. No free air or ascites. 5. Aberrant RIGHT subclavian artery. 6. Prior cholecystectomy. Laboratory Results WBC 6.0 10^3/uL (4.0-10.0) 12/21/22 12:30 RBC 3.01 10^6/uL (4.1-5.3) L 12/21/22 12:30 Hgb 9.9 g/dL (11.7-16.6) L 12/21/22 12:30 Hct 29.9 % (42.0-52.0) L 12/21/22 12:30 MCV 99.3 fl (80-94) H 12/21/22 12:30 MCH 32.9 pg (28.0-34.0) 12/21/22 12:30 MCHC 33.1 g/dL (30.0-36.0) 12/21/22 12:30 RDW 14.9 % (12.1-15.1) 12/21/22 12:30 Plt Count 152 10^3/cmm (130-400) 12/21/22 12:30 MPV 11.7 fL (7.4-10.4) H 12/21/22 12:30 Neut % (Auto) 90.1 % 12/21/22 12:30 Lymph % (Auto) 6.5 % 12/21/22 12:30 [place] % (Auto) 2.5 % 12/21/22 12:30 Eos % (Auto) 0.2 % 12/21/22 12:30 Baso % (Auto) 0.2 % 12/21/22 12:30 Neut # (Auto) 5.42 10^3/uL (1.8-7.7) 12/21/22 12:30 Lymph # (Auto) 0.4 10^3/uL (0.8-4.8) L 12/21/22 12:30 [place] # (Auto) 0.2 10^3/uL (0.2-0.9) 12/21/22 12:30 Eos # (Auto) 0.0 10^3/uL (0.0-0.8) 12/21/22 12:30 Baso # (Auto) 0.0 10^3/uL (0.0-0.1) 12/21/22 12:30 Nucleated RBC % (auto) 0 % 12/21/22 12:30 Nucleated RBCs # 0.0 /100WBC 12/21/22 12:30 PT 13.60 SECONDS (12.1-14.9) 12/21/22 12:30 INR 1.01 (0.8-1.2) 12/21/22 12:30 D-Dimer 0.61 ug/mIFEU (0-0.59) H 12/21/22 12:30 Sodium 116 mmol/L (136-145) L* 12/21/22 12:30 Potassium 5.7 mmol/L (3.5-5.1) H 12/21/22 12:30 Chloride 85 mmol/L (98-107) L 12/21/22 12:30 Carbon Dioxide 23 mmol/L (22-29) 12/21/22 12:30 Anion Gap 13.7 (5-19) 12/21/22 12:30 BUN 23 mg/dL (8-23) 12/21/22 12:30 Creatinine 1.1 mg/dL (0.7-1.2) 12/21/22 12:30 GFR Calculation 68.1 mL/min (90-130) L 12/21/22 12:30 Glucose 118 mg/dL (65-115) H 12/21/22 12:30 Calculated Osmolality 247 mOsm/kg (285-295) L 12/21/22 12:30 Lactic Acid 0.9 mmol/L (0.5-2.2) 12/21/22 15:05 Calcium 7.6 mg/dL (8.5-10.5) L 12/21/22 12:30 Total Bilirubin 1.4 mg/dL (0.15-1.2) H 12/21/22 12:30 AST 71 U/L (0-40) H 12/21/22 12:30 ALT 33 U/L (0-41) 12/21/22 12:30 Alkaline Phosphatase 374 U/L (40-130) H 12/21/22 12:30 NT-Pro-B Natriuret Pep 1339 pg/mL (0-125) H 12/21/22 12:30 Total Protein 5.7 g/dL (6.6-8.7) L 12/21/22 12:30 Albumin 2.2 g/dL (3.5-5.2) L 12/21/22 12:30 Globulin 3.5 g/dL (1.3-4.6) 12/21/22 12:30 Procalcitonin 1.40 ng/mL (0-0.5) H 12/21/22 12:30 Urine Color [place] (Yellow) 12/21/22 15:56 Urine Appearance Cloudy (CLEAR) A 12/21/22 15:56 Urine pH 5 (5-7) 12/21/22 15:56 Ur Specific [place] 1.020 (1.005-1.030) 12/21/22 15:56 Urine Protein Trace (Negative) 12/21/22 15:56 Urine Glucose (UA) Norm (Normal) 12/21/22 15:56 Urine Ketones Negative (Negative) 12/21/22 15:56 Urine Blood 3+ (Negative) H 12/21/22 15:56 Urine Nitrate Negative (Negative) 12/21/22 15:56 Urine Bilirubin 1+ (Negative) H 12/21/22 15:56 Urine Urobilinogen 8 mg/dL (Negative) H 12/21/22 15:56 Ur Leukocyte Esterase 2+ (Negative) H 12/21/22 15:56 Urine RBC 5-10 /hpf (0-2) H 12/21/22 15:56 Urine WBC Too numerous to cnt /hpf (0-5) H 12/21/22 15:56 Ur Squamous Epith Cells None /hpf (0-5) 12/21/22 15:56 Amorphous Sediment Not Reportable 12/21/22 15:56 Urine Bacteria 3+ /hpf (NONE) H 12/21/22 15:56 Micro: Microbiology 12/21/22 13:43 Blood Culture - Preliminary Blood SPECIMEN COLLECTED 12/21/22 13:30 Blood Culture - Preliminary Blood SPECIMEN COLLECTED A&P Assessment and plan (1) Shock: (2) Acute hyponatremia: (3) Ileus: (4) Abdominal pain: (5) Nausea and vomiting: (6) UTI (urinary tract infection): (7) Hyperkalemia: (8) Hypoxia: Plan 62-year-old with past medical history of CAD, severe depression with history of suicidal ideation, chronic back pain with most recent history of small bowel obstruction requiring ex lap, ESBL E. coli UTI and pneumonia, hypertension who [facility] with concerns for abdominal pain, nausea and vomiting and found to be slightly more hypoxic than baseline and hypotensive not responsive to fluid challenges. Shock: Sepsis versus hypovolemic. Complete sepsis fluid bolus. Continue normal saline at 100 cc/h. If remains hypotensive with mean artery pressure less than 65 will start on Levophed. Check blood cultures, lactate, urine culture, procalcitonin, MRSA swab. Patient has history of ESBL E. coli in sputum and urine and Pseudomonas in abdominal cavity from most recent or culture. For now start patient on vancomycin and meropenem. Nuñez catheterization. Strict input output charting. Hypoxia: Abdominal distention. Pneumonia cannot be ruled out. Aggressive pulmonary toilet. Sputum culture. Check respiratory viral panel Antibiotic as above. Oxygen supplementation keeping saturation over 90%. Ipratropium, Xopenex every 6 hours, budesonide twice daily for now. Out of bed to chair. Hyponatremia: Baseline sodium seems to be around more than 140. Currently 116. Fluid as above. Check urine lites. Monitor sodium level every 6 hourly for now. Target improvement in sodium of 8 to 10 mg in next 24 hours. Hyperkalemia: Most likely in setting of dehydration along with home dose of lisinopril. Medical reconciliation done. D50 with 10 units of insulin. Repeat potassium level in evening. Nausea and vomiting/abdominal pain: Most likely in setting of ileus. Patient has a recent history of small bowel obstruction post ex lap. CT abdomen pelvis negative for bowel obstruction but consistent with ileus. Could be in setting of electro abnormality. Serial abdominal imaging. Aggressive bowel regimen with milk of mag and senna Colace. If needed we will plan for NG tube placement. Abdominal imaging in a.m. N.p.o. for now. UTI: Follow-up urine culture. Above antibiotics will suffice for UTI. A-fib: Rate controlled currently. Hold off on Coreg for now. On last discharge it seems Eliquis was stopped given borderline anemia at the time. For now we will continue to hold. Will discuss in detail with the patient prior to discharge and restart if needed. Telemetry. CODE STATUS: Discussed in detail with the patient. He confirms with recent changes CODE STATUS to DNI/DNR on last admission. Is agreeable for ICU a dmission and vasopressors if needed. His Ms. Sanchez will be the DPOA. N.p.o. Protonix OPD prophylaxis Heparin for DVT prophylaxis. Attestations Medical Necessity Statement*: Admission, in setting of shock, acute hyponatremia secondary to dehydration along with ileus leading to abdominal pain and nausea vomiting, UTI requiring ICU admission Coding Level of Care Code Critical Care >/= 30 minutes Critical care time (in minutes): 70 The high probability of a clinically significant, sudden or life threatening deterioration, as referenced in this documentation, required my full and direct attention, intervention and personal management. The critical care time shown is in addition to time spent performing any reported separately billable procedures and includes the following: [x] Data and vital sign review and interpretation [x ] Patient assessment, examination and intervention [x] Medication orders and management [x] Patient/Family updates as able [x] Care Coordination and Documentation. Other Coding Information This patient has a high probability of clinically significant, sudden or life threatening deterioration of the patient's (neurological/pulmonary/cardiac/renal/ID/endocrine) systems required my full, direct attention, the highest level of physician preparedness for urgent intervention and personal management. I managed/supervised life or organ supporting interventions that required frequent physician assessment. I devoted my full attention in the ICU to the direct care of this patient for the period of time indicated above. Time I spent with family or surrogate(s) is included only if the patient was incapable of providing necessary information or participating in decision making. This time includes the following services provided: Telemetry review Hemodynamic interpretation, assessment and management Review and interpretation of CXR Review and interpretation of lab values Review and interpretation of microbiologic data and culture results Review of medications and administration Review and interpretation of Nutrition requirements and management Discussion of management with other consultants and services Clinical update to family members Diagnoses Shock R57.9 Acute hyponatremia E87.1 Ileus K56.7 Abdominal pain R10.9 Nausea and vomiting R11.2 UTI (urinary tract infection) N39.0 Hyperkalemia E87.5 Hypoxia R09.02
[2022-12-21 17:36] LABS: INR 1.01 (0.8-1.2)
[2022-12-21 17:39] LABS: D Dimer 0.61 ug/mIFEU (0-0.59)
--- NOTE | 2022-12-21 17:48 | XRR_ITS ---
PROCEDURE INFORMATION: Exam: XR Chest Exam date and time: 12/21/2022 5:56 PM Age: 62 years old Clinical indication: Device placement; Other: Central line; Prior surgery; Surgery date: 6+ months; Surgery type: Pacer; Additional info: Central line placement TECHNIQUE: Imaging protocol: Radiologic exam of the chest. Views: 1 view. COMPARISON: CT chest abdpel [id number] 12/21/2022 3:29 PM FINDINGS: Tubes, catheters and devices: AICD/pacer device noted in the left chest wall. Interval placement of right central line which terminates at the mid SVC. Lungs: Ill-defined opacities again noted in the mid/lower right lung and throughout the left lung, no significant interval change. Pleural spaces: No pleural effusion. No pneumothorax. Heart/Mediastinum: No cardiomegaly. Bones/joints: Old fracture deformity of the proximal right humerus noted. XR/XR chest 1V portable [id number] IMPRESSION: Right central line placement in expected positioning. Otherwise, no significant interval change.
--- NOTE | 2022-12-21 17:51 | ED_ITS ---
HPI - SOB/Dyspnea General: Chief Complaint: Shortness of Breath/Dyspnea Stated Complaint: low bp Time Seen by Provider: 12/21/22 11:16 Source: EMS and RN notes reviewed Mode of arrival: EMS Limitations: altered mental status History of Present Illness: HPI Narrative: central line PFSH ED PFSH: Medical History (Updated 12/21/22 @ 17:[address] MD) Acute ischemic stroke Afib Anxiety and depression Atrial fibrillation Atrial fibrillation, chronic Back pain CAD (coronary artery disease) Chest pain Chest pain Chronic anticoagulation Chronic thoracic back pain Compression fracture Diabetes Displaced fracture of proximal end of humerus Disruption of external operation (surgical) wound, not elsewhere classified, subsequent encounter Flu-like symptoms Focal sensory loss History of posttraumatic stress disorder (PTSD) HTN (hypertension) Humerus fracture Hypertensive urgency Intractable pain Lacunar infarction Major depressive disorder, 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, 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 Pacemaker Pneumonia Post-traumatic stress disorder, chronic Pressure ulcer of sacral region, stage 2 Psychiatric care SSS (sick sinus syndrome) Suicidal thoughts Syncope Tachycardia Transaminitis Traumatic compression fracture of T12 thoracic vertebra Traumatic compression fracture of thoracic vertebra Surgical History Gastric banding status S/P kyphoplasty S/P placement of cardiac pacemaker Status post cholecystectomy Family History Father CAD (coronary artery disease) Mother Cancer Social History Smoking and tobacco status: former smoker Second hand smoke exposure: No Alcohol intake: never Substance/Drug Use: never Household members: spouse Housing: House Procedures Central Line Placement Right IJ: Time Out Performed: Yes Patient Placed on Monitor/Pulse Ox: Yes MD Prep: mask, gown and gloves Central Line Prep: Chlorhexidine scrub Local Anesthetic: lidocaine 1% Amount of anesthesia used (mL): 5 Ultrasound Used for Placement: Yes Central Line Lumen Inserted: triple Post Procedure: sutured in place, good blood return, all ports aspirated, flushed, capped and sterile dressing applied Post Procedure X-Ray: no pneumothorax seen Patient Tolerated Procedure: well Course Vital Signs: Vital signs: Vital Signs Temperature 97.0 F L 12/21/22 11:14 Pulse Rate 69 12/21/22 15:10 Respiratory Rate 30 H 12/21/22 15:15 Blood Pressure 89/56 12/21/22 15:30 Pulse Oximetry 92 12/21/22 15:15 Oxygen Delivery Me thod Nasal Cannula 12/21/22 14:25 Oxygen Flow Rate 3 12/21/22 14:25 MDM - SOB/Dyspnea Medical Decision Making Patient presents here with sepsis he is not my patient he is the other providers but I was asked to do a central line I did place the central line with no complications Lab Data 12/21/22 12:30 12/21/22 12:30 Labs/Radiology: Radiology Impressions Chest X-Ray 12/21/22 11:40 IMPRESSION: Decreased opacity in both lungs since 09/25/2022. Nonspecific. Possible residual or recurrent infection, aspiration or edema. Some component of background interstitial lung disease may be present. Consider chest CT for clarification. Chest/Abdomen/Pelvis CT 12/21/22 14:46 IMPRESSION: 1. Lung volumes are decreased with chronic elevation RIGHT hemidiaphragm. 2. Bilateral pulmonary opacifications, greatest in the upper lobes. Pneumonitis versus pneumonia and edema. 3. Marked air distention of the colon with fluid and air in the small bowel. Probably due to an ileus. No transition point is identified. 4. No free air or ascites. 5. Aberrant RIGHT subclavian artery. 6. Prior cholecystectomy. Laboratory Results WBC 6.0 10^3/uL (4.0-10.0) 12/21/22 12:30 RBC 3.01 10^6/uL (4.1-5.3) L 12/21/22 12:30 Hgb 9.9 g/dL (11.7-16.6) L 12/21/22 12:30 Hct 29.9 % (42.0-52.0) L 12/21/22 12:30 MCV 99.3 fl (80-94) H 12/21/22 12:30 MCH 32.9 pg (28.0-34.0) 12/21/22 12:30 MCHC 33.1 g/dL (30.0-36.0) 12/21/22 12:30 RDW 14.9 % (12.1-15.1) 12/21/22 12:30 Plt Count 152 10^3/cmm (130-400) 12/21/22 12:30 MPV 11.7 fL (7.4-10.4) H 12/21/22 12:30 Neut % (Auto) 90.1 % 12/21/22 12:30 Lymph % (Auto) 6.5 % 12/21/22 12:30 [place] % (Auto) 2.5 % 12/21/22 12:30 Eos % (Auto) 0.2 % 12/21/22 12:30 Baso % (Auto) 0.2 % 12/21/22 12:30 Neut # (Auto) 5.42 10^3/uL (1.8-7.7) 12/21/22 12:30 Lymph # (Auto) 0.4 10^3/uL (0.8-4.8) L 12/21/22 12:30 [place] # (Auto) 0.2 10^3/uL (0.2-0.9) 12/21/22 12:30 Eos # (Auto) 0.0 10^3/uL (0.0-0.8) 12/21/22 12:30 Baso # (Auto) 0.0 10^3/uL (0.0-0.1) 12/21/22 12:30 Nucleated RBC % (auto) 0 % 12/21/22 12: Nucleated RBCs # 0.0 /100WBC 12/21/22 12:30 PT 13.60 SECONDS (12.1-14.9) 12/21/22 12:30 INR 1.01 (0.8-1.2) 12/21/22 12:30 D-Dimer 0.61 ug/mIFEU (0-0.59) H 12/21/22 12:30 Sodium 116 mmol/L (136-145) L* 12/21/22 12:30 Potassium 5.7 mmol/L (3.5-5.1) H 12/21/22 12:30 Chloride 85 mmol/L (98-107) L 12/21/22 12:30 Carbon Dioxide 23 mmol/L (22-29) 12/21/22 12:30 Anion Gap 13.7 (5-19) 12/21/22 12:30 BUN 23 mg/dL (8-23) 12/21/22 12:30 Creatinine 1.1 mg/dL (0.7-1.2) 12/21/22 12:30 GFR Calculation 68.1 mL/min (90-130) L 12/21/22 12:30 Glucose 118 mg/dL (65-115) H 12/21/22 12:30 Calculated Osmolality 247 mOsm/kg (285-295) L 12/21/22 12:30 Lactic Acid 0.9 mmol/L (0.5-2.2) 12/21/22 15:05 Calcium 7.6 mg/dL (8.5-10.5) L 12/21/22 12:30 Total Bilirubin 1.4 mg/dL (0.15-1.2) H 12/21/22 12:30 AST 71 U/L (0-40) H 12/21/22 12:30 ALT 33 U/L (0-41) 12/21/22 12:30 Alkaline Phosphatase 374 U/L (40-130) H 12/21/22 12:30 NT-Pro-B Natriuret Pep 1339 pg/mL (0-125) H 12/21/22 12:30 Total Protein 5.7 g/dL (6.6-8.7) L 12/21/22 12:30 Albumin 2.2 g/dL (3.5-5.2) L 12/21/22 12:30 Globulin 3.5 g/dL (1.3-4.6) 12/21/22 12:30 Procalcitonin 1.40 ng/mL (0-0.5) H 12/21/22 12:30 Urine Color [place] (Yellow) 12/21/22: Urine Appearance Cloudy (CLEAR) A 12/21/22 15:56 Urine pH 5 (5-7) 12/21/22 15:56 Ur Specific [place] 1.020 (1.005-1.030) 12/21/22 15:56 Urine Protein Trace (Negative) 12/21/22 15: Urine Glucose (UA) Norm (Normal) 12/21/22 15:56 Urine Ketones Negative (Negative) 12/21/22 15:56 Urine Blood 3+ (Negative) H 12/21/22 15:56 Urine Nitrate Negative (Negative) 12/21/22 15: Urine Bilirubin 1+ (Negative) H 12/21/22 15:56 Urine Urobilinogen 8 mg/dL (Negative) H 12/21/22 15:56 Ur Leukocyte Esterase 2+ (Negative) H 12/21/22 15:56 Urine RBC 5-10 /hpf (0-2) H 12/21/22 15:56 Urine WBC Too numerous to cnt /hpf (0-5) H 12/21/22 15:56 Ur Squamous Epith Cells None /hpf (0-5) 12/21/22 15:56 Amorphous Sediment Not Reportable 12/21/22 15:56 Urine Bacteria 3+ /hpf (NONE) H 12/21/22 15:56 Discharge Plan Discharge Patient Disposition: Admitted As Inpatient Admit Provider: Lane Davison Clinical Impression: Sepsis associated hypotension, Hyponatremia, Ileus Condition: Stable Coding Level of Care Code ED Car Construction Superintendent for Anabela Clark
[2022-12-21 17:56] LABS: Sodium 115 mmol/L (136-145)
[2022-12-21 18:03] LABS: Procalcitonin 1.38 ng/mL (0-0.5)
[2022-12-21 18:11] LABS: Potassium, Radom Urine 21 mmol/L; Urine Creatinine 68 mg/dL (39-259); Urine Random Sodium 31 mmol/L
[2022-12-21 18:13] LABS: Urine Random Chloride 12 mmol/L
--- NOTE | 2022-12-21 18:25 | PC.PHAR ---
Vanc trough to be drawn before 3rd dose Patient: Floor: Age: 62 yo Serum creatinine: 1.1 mg/dL Height: 63.8 Inches Weight (kg): 108 IBW (kg): 58.74 Dosing wt(kg): 78.4 Estimated Creatinine clearance (ml/min): 58.6 CRCL method: Cockcroft and Gault using ibw(default). Drug selected: Vancomycin Loading dose (mg): Vd (liters): 54.9 (factor used: 0.7 L/kg) Marc (hr-1): 0.053 Half life (hrs): 13.08 CLvanco=?? 2.910 L/hr Recommended dose: 1500 mg Interval: 18 hrs Infusion time (hrs): 1 Predicted peak (mcg/mL): 43.3 Predicted trough (mcg/mL): 17.59 Adjusted body weight was selected for vancomycin dosing. To switch back, select the total body weight option above. Recommendations: Give Vancomycin 1500 mg q 18 hrs with an expected Cpeak of 43.3 mcg/ml and an expected Ctrough of 17.59 mcg/ml AUC 0-24 /ODALIS Data: ODALIS 0.5 mcg/mL:?? AUC/ODALIS:? 1374.6 ODALIS 1.0 mcg/mL:?? AUC/ODALIS:? 687.3 --------- ODALIS 1.5 mcg/mL:?? AUC/ODALIS:? 458.2 ODALIS 2.0 mcg/mL:?? AUC/ODALIS:? 343.6 Renal dosing of other antibiotics (review renal dosing of other medications and list guidelines here): Thank you for the consult, will continue to follow. Signature: Kenan Drummond, StacieD
[2022-12-21 18:47] LABS: Lactic Sepsis W/Reflex 0.8 mmol/L (0.5-2.2)
[2022-12-21] MEDS: docusate sodium 100 mg Capsule PO (18:59)
[2022-12-21] MEDS: vancomycin 1,500 MG/300 ML PIGGYBACK 200 MG IV (18:59)
[2022-12-21] MEDS: meropenem 1,000 MG in sodium chloride 0.9% (plus) 50 ML 100 MG IV (18:59)
[2022-12-21] MEDS: magnesium hydroxide 30 mL UDC PO (18:59)
[2022-12-21] MEDS: sodium chloride 0.9% 1,000 ML 100 ML IV (19:00)
[2022-12-21 19:03] LABS: C Reactive Protein 160.6 mg/L (0.0-4.9); Iron 63 ug/dL (59-158); Thyroid Stimulating Hormone 2.05 uIU/mL (0.27-4.20)
[2022-12-21 19:07] LABS: Vitamin B12 > 2000 pg/mL (232-1245)
[2022-12-21 19:26] LABS: Unsaturated Iron Binding < 17 ug/dL (112-347)
[2022-12-21] MEDS: pantoprazole 40 mg SDV IVP (19:42)
[2022-12-21] MEDS: heparin 5,000 unit/mL INJ 1 mL 5000 UNIT SUBCUT (19:42)
--- NOTE | 2022-12-21 19:50 | PC.NURSE ---
Notified Dr. Ruth that B/P is running 80/40 with mean pressure in the 50's. Notified that patient is currently receiving NS at 100ml/h with Na+ level landon 115 at around noon today with no further labwork ordered. Notified that patient has swelling in bilat arms, legs, and abdomen with crackles and expiratory wheezing noted in lungs. O2 sats 92% on 2L NC. Orders given to check stat CMP, decrease NS to 50mL/h and start levophed.
[2022-12-21] MEDS: quetiapine 100 mg Tablet 200 MG PO (20:23)
[2022-12-21 20:54] LABS: Alanine Aminotransferase 25 U/L (0-41); Albumin Level 1.8 g/dL (3.5-5.2); Alkaline Phosphatase 274 U/L (40-130); Anion Gap 12.5 (5-19); Aspartate Amino Transferase 48 U/L (0-40); Blood Urea Nitrogen 23 mg/dL (8-23); Calcium 6.8 mg/dL (8.5-10.5); Carbon Dioxide 22 mmol/L (22-29); Chloride 91 mmol/L (98-107); Globulin 2.4 g/dL (1.3-4.6); Glomerular Filtration Rate 85.8 mL/min (90-130); Glucose 92 mg/dL (65-115); Osmolality Calculated 253 mOsm/kg (285-295); Potassium 5.5 mmol/L (3.5-5.1); Sodium 120 mmol/L (136-145); Total Bilirubin 1.1 mg/dL (0.15-1.2); Total Protein 4.2 g/dL (6.6-8.7)
[2022-12-21] MEDS: levalbuterol 0.63 mg/3 mL Neb INHALATION (21:24)
[2022-12-21] MEDS: ipratropium 0.5 mg/2.5 mL Neb INHALATION (21:25)
[2022-12-21 21:50] LABS: Adenovirus Not Detected (NOT DETECT); Chlamydia Pneumoniae Not Detected (NOT DETECT); Coronavirus 229E,HKU1,NL63,OC4 Not Detected (NOT DETECT); Human Metapneumovirus Not Detected (NOT DETECT); Human Rhinovirus/Enterovirus Not Detected (NOT DETECT); Influenza A Not Detected (NOT DETECT); Influenza A H1 Not Detected (NOT DETECT); Influenza A H1-2009 Not Detected (NOT DETECT); Influenza A H3 Not Detected (NOT DETECT); Influenza B Not Detected (NOT DETECT); Mycoplasma Pneumoniae Not Detected (NOT DETECT); Parainfluenza Virus Type 1 Not Detected (NOT DETECT); Parainfluenza Virus Type 2 Not Detected (NOT DETECT); Parainfluenza Virus Type 3 Not Detected (NOT DETECT); Parainfluenza Virus Type 4 Not Detected (NOT DETECT); Respiratory Syncytial Virus A Not Detected (NOT DETECT); Respiratory Syncytial Virus B Not Detected (NOT DETECT); SARS-COV-2 Detected (NOT DETECT)
--- NOTE | 2022-12-21 23:20 | PC.NURSE ---
2101 -- Sent volte message to Dr. Ruth regarding patients current Na+ level of 120 and current v/s on levophed. No response. 2224 -- Attempted to call Dr. Ruth regarding patient CMP results and patient currently on 8mcg of levophed. No answer. 2233 -- Attempted to volte message Dr. Ruth again, with no response. Notified house painter. 2307 -- Called Dr. Ruth and notified of CMP results, that BMP was not done at 2200 since we had just done one and 2029 and had not given results to her yet, current blood pressure of 83/54(63) with levophed currently on 10mcg/min. States she is ok as long as the MAP is 60 or above and to increase NS to 75mL/h, because of patient dehydration.
[2022-12-22] VITALS (106 sets, daily range): BP systolic 65–152; BP diastolic 36–87; PULSE 72–110; RESP 11–35; TEMP 35.8–36.9; O2SAT 88–98
[2022-12-22] MEDS: meropenem 1,000 MG in sodium chloride 0.9% (plus) 50 ML 100 MG IV ×3 (01:14→17:55)
[2022-12-22] MEDS: ipratropium 0.5 mg/2.5 mL Neb INHALATION ×4 (02:47→19:35)
[2022-12-22] MEDS: levalbuterol 0.63 mg/3 mL Neb INHALATION ×4 (02:47→19:35)
[2022-12-22 03:01] LABS: Basophils % 0.3 %; Eosinophils % 0.9 %; Hematocrit 25.4 % (42.0-52.0); Lymphocytes # 0.5 10^3/uL (0.8-4.8); Mean Corpuscular HGB Conc 31.5 g/dL (30.0-36.0); Mean Corpuscular Hemoglobin 32.1 pg (28.0-34.0); Mean Platelet Volume 11.5 fL (7.4-10.4); Monocytes # 0.2 10^3/uL (0.2-0.9); Monocytes % 4.6 %; Neutrophils # 2.63 10^3/uL (1.8-7.7); Neutrophils % 79.9 %; Nucleated Red Blood Cells % 0 %; Platelet Count 127 10^3/cmm (130-400); Red Blood Count 2.49 10^6/uL (4.1-5.3); White Blood Count 3.3 10^3/uL (4.0-10.0)
[2022-12-22 03:37] LABS: Procalcitonin 1.13 ng/mL (0-0.5)
[2022-12-22 03:50] LABS: Alanine Aminotransferase 24 U/L (0-41); Albumin Level 1.6 g/dL (3.5-5.2); Alkaline Phosphatase 284 U/L (40-130); Anion Gap 11.2 (5-19); Aspartate Amino Transferase 48 U/L (0-40); Blood Urea Nitrogen 20 mg/dL (8-23); Calcium 7.1 mg/dL (8.5-10.5); Carbon Dioxide 24 mmol/L (22-29); Chloride 90 mmol/L (98-107); Chol HDL Ratio 3.06 mg/dL (1.0-5.00); Cholesterol 49 mg/dL (0-200); Globulin 2.7 g/dL (1.3-4.6); Glomerular Filtration Rate 85.8 mL/min (90-130); Glucose 97 mg/dL (65-115); HDL Cholesterol 16 mg/dL (60-100); LDL Cholesterol Calculated 18 mg/dL (50-129); LDL HDL Ratio 1.13 RATIO (0.00-3.22); Magnesium 2.1 mg/dL (1.7-2.3); Osmolality Calculated 253 mOsm/kg (285-295); Phosphorus 4.2 mg/dL (2.5-4.5); Potassium 5.2 mmol/L (3.5-5.1); Sodium 120 mmol/L (136-145); Total Bilirubin 0.9 mg/dL (0.15-1.2); Total Protein 4.3 g/dL (6.6-8.7); Triglycerides 76 mg/dL (0-150)
[2022-12-22 04:33] LABS: Folate Level 7.1 ng/mL (4.5-32.2)
[2022-12-22] MEDS: sertraline 100 mg Tablet PO (06:01)
[2022-12-22] MEDS: acetaminophen 325 mg Tablet 650 MG PO ×3 (06:01→18:01)
[2022-12-22] MEDS: magnesium hydroxide 30 mL UDC PO (08:28)
[2022-12-22] MEDS: docusate sodium 100 mg Capsule PO ×2 (08:28→17:59)
[2022-12-22] MEDS: heparin 5,000 unit/mL INJ 1 mL 5000 UNIT SUBCUT ×2 (08:29→20:43)
[2022-12-22] MEDS: morphine 4 mg/mL SDV 1 mL 2 MG IVP ×2 (09:44→15:06)
[2022-12-22] MEDS: ondansetron 2 mg/ML SDV 2 mL 4 MG IVP (09:59)
--- NOTE | 2022-12-22 10:00 | XRR_ITS ---
PROCEDURE INFORMATION: Exam: XR Abdomen Exam date and time: 12/22/2022 10:19 AM Age: 62 years old Clinical indication: Abdominal pain; Generalized; Additional info: Possible sbo vs ileus TECHNIQUE: Imaging protocol: Radiologic exam of the abdomen. Views: 2 Views. Upright and supine views. COMPARISON: CT chest abdpel w/*[id number] 12/21/2022 3:29 PM FINDINGS: Tubes, catheters and devices: Right IJ central venous catheter terminates in the region of the right atrium. Cardiac rhythm maintenance device is in place. Lungs: Low lung volumes with patchy bibasilar airspace opacities. Gastrointestinal tract: Similar dilation of small and large bowel loops. Intraperitoneal space: Normal. No free air. Bones/joints: Bilateral total hip arthroplasty changes. Soft tissues: Mesh tissue tacks project over the central abdomen. XR/XR acute abdomen series [id number] IMPRESSION: 1. Similar dilation of small and large bowel loops. 2. Low lung volumes with patchy bibasilar airspace opacities, which may reflect atelectasis versus aspiration or pneumonia.
[2022-12-22 10:19] LABS: Estmated Average Glucose 80; Hemoglobin A1C 4.4 % (4.0-6.0)
--- NOTE | 2022-12-22 10:21 | PC.NURSE ---
MAR delay related to providing care for 2 other critical care patients.
[2022-12-22] MEDS: dexamethasone 10 mg/mL INJ 6 MG IVP (10:31)
[2022-12-22] MEDS: sodium chloride 0.9% 1,000 ML 75 ML IV (10:32)
[2022-12-22] MEDS: insulin regular-human 10 UNIT in SYRINGE 1 EACH 100 UNIT IVP (10:35)
[2022-12-22] MEDS: albumin 25 G/100 ML BAG 60 G IV ×2 (10:38→17:58)
[2022-12-22] MEDS: lactulose oral liq 20 gm/30 mL UDC 30 GM PO ×2 (13:22→20:44)
[2022-12-22] MEDS: vancomycin 1,500 MG/300 ML PIGGYBACK 200 MG IV (13:23)
[2022-12-22] MEDS: Fleet Enema 133 mL Enema PR (13:23)
[2022-12-22 15:34] LABS: Anion Gap 11.5 (5-19); Blood Urea Nitrogen 17 mg/dL (8-23); Calcium 7.3 mg/dL (8.5-10.5); Carbon Dioxide 24 mmol/L (22-29); Chloride 87 mmol/L (98-107); Glomerular Filtration Rate 98.3 mL/min (90-130); Glucose 98 mg/dL (65-115); Osmolality Calculated 246 mOsm/kg (285-295); Potassium 5.5 mmol/L (3.5-5.1)
[2022-12-22 15:40] LABS: Sodium 117 mmol/L (136-145)
--- NOTE | 2022-12-22 16:39 | P.PN_ITS ---
Vitals/I&O/Wt Last Vital Signs Temp 96.5 F L 12/22/22 08:25 Pulse 80 12/22/22 15:35 Resp 15 12/22/22 15:06 BP 95/68 12/22/22 13:45 Pulse Ox 92 12/22/22 15:06 O2 Del Method Nasal Cannula 12/22/22 13:52 O2 Flow Rate 2 12/22/22 13:52 12/22/22 12/22/22 12/22/22 06:59 14:59 22:59 Intake Total 1127.763 / 3731.500 1054.486 / 1054.486 281.115 / 1335.601 Output Total 800 / 800 Balance 327.763 / 2931.500 1054.486 / 1054.486 281.115 / 1335.601 Weight last 48 hrs Weight 99.291 kg Weight 102.512 kg Weight 96.36 kg Weight 108.862 kg Physical Exam Narrative: General: No acute distress, AO x3, dehydrated, Sick appearing, on 3 L HEENT: PERRLA, pupils bilaterally equal and reactive Chest: Normal vesicular breath sounds, no added sounds, equal good air entry bilaterally CVS: S1-S2 regular, no murmurs, no tachycardia, no gallops, no rubs Abdomen: Soft, distended, generalized tenderness, no organomegaly, sluggish bowel sounds present Neuro: No focal deficits, no facial deformity, AO x3, power 5/5 in all limbs Urinary Catheter Management: Nuñez: Cath Placed During This Visit: yes Reason for Continuing Indwelling Catheter: Accurate Measurement of Urinary Output in Critically Ill Patients Urinary Catheter Date of Insertion: 12/21/22 Data 12/22/22 02:26 12/22/22 14:58 Micro: Microbiology 12/21/22 13:43 Blood Culture - Preliminary Blood NEGATIVE TO DATE 12/21/22 13:30 Blood Culture - Preliminary Blood NEGATIVE TO DATE 12/21/22 20:41 Gram Stain - Final Sputum - Expectorated Sputum 12/21/22 15:56 Urine Culture - Preliminary Urine,Clean Catch Gram Negative Rods 12/21/22 15:56 Bacterial Antigens - Final Urine Kidney 12/21/22 15:56 Legionella Urinary Antigen - Final Unknown Source A&P Assessment and plan (1) Shock: (2) Acute hyponatremia: (3) Ileus: (4) Abdominal pain: (5) Nausea and vomiting: (6) UTI (urinary tract infection): (7) Hyperkalemia: (8) Hypoxia: (9) COVID-19: Plan 62-year-old with past medical history of CAD, severe depression with history of suicidal ideation, chronic back pain with most recent history of small bowel obstruction requiring ex lap, ESBL E. coli UTI and pneumonia, hypertension who presented from the [facility] with concerns for abdominal pain, nausea and vomiting and found to be slightly more hypoxic than baseline and hypotensive not responsive to fluid challenges. Shock: Sepsis versus hypovolemic. Wean Levophed keeping neuro pressure 65. Follow-up culture results. Urine culture so far positive for gram-negative rods. Sputum culture pending. Continue with IV fluid to 75 cc/h. Start on albumin every 8 hourly. Patient has history of ESBL E. coli in sputum and urine and Pseudomonas in abdominal cavity from most recent or culture. For now start patient on vancomycin and meropenem. Nuñez catheterization. Strict input output charting. Hypoxia: Most likely in setting of abdominal distention along with COVID-19. COVID-19 positive for more than 10 days. No need for isolation. Dexamethasone 6 mg IV daily. Aggressive pulmonary toilet. Sputum culture. Check respiratory viral panel Antibiotic as above. Oxygen supplementation keeping saturation over 90%. Ipratropium, Xopenex every 6 hours, budesonide twice daily for now. Out of bed to chair. Hyponatremia: Baseline sodium seems to be around more than 140. Slightly improved. Mixed etiology. Could be secondary to hypovolemia the patient is third spacing given hypoalbuminemia. Appreciate urine studies. If blood pressures improve can plan for IV Lasix but for now we will hold off. Monitor sodium level every 6 hourly for now. Target improvement in sodium of 8 to 10 mg in next 24 hours. Hyperkalemia: Most likely in setting of dehydration along with home dose of lisinopril. Medical reconciliation done. D50 with 10 units of insulin. Repeat potassium level in evening. Nausea and vomiting/abdominal pain: Most likely in setting of ileus. Patient has a recent history of small bowel obstruction post ex lap. CT abdomen pelvis negative for bowel obstruction but consistent with ileus. Could be in setting of electro abnormality. Repeat abdominal x-ray today. We will consult surgery for further recommendations. Aggressive bowel regimen with milk of mag and senna Colace. Plan for enema today. N.p.o. for now. UTI: Follow-up urine culture. Above antibiotics will suffice for UTI. A-fib: Rate controlled currently. Hold off on Coreg for now. On last discharge it seems Eliquis was stopped given borderline anemia at the time. For now we will continue to hold. Will discuss in detail with the patient prior to discharge and restart if needed. Telemetry. CODE STATUS: Discussed in detail with the patient. He confirms with recent changes CODE STATUS to DNI/DNR on last admission. Is agreeable for ICU admission and vasopressors if needed. His Ms. Sanchez will be the DPOA. N.p.o. Protonix OPD prophylaxis Heparin for DVT prophylaxis. Attestations Medical Necessity Statement*: Requires further hospitalization for management of shock in setting of UTI, hypoxia in setting of recent COVID-19, severe hyponatremia, nausea and vomiting in setting of ileus Coding Level of Care Code Critical Care >/= 30 minutes Critical care time (in minutes): 70 The high probability of a clinically significant, sudden or life threatening deterioration, as referenced in this documentation, required my full and direct attention, intervention and personal management. The critical care time shown is in addition to time spent performing any reported separately billable procedures and includes the following: [x] Data and vital sign review and interpretation [x ] Patient assessment, examination and intervention [x] Medication orders and management [x] Patient/Family updates as able [x] Care Coordination and Documentation. Diagnoses Shock R57.9 Acute hyponatremia E87.1 Ileus K56.7 Abdominal pain R10.9 Nausea and vomiting R11.2 UTI (urinary tract infection) N39.0 Hyperkalemia E87.5 Hypoxia R09.02 COVID-19 U07.1
--- NOTE | 2022-12-22 17:05 | PC.NURSE ---
[facility] dynamic assessment completed. SVI 34, CI 3.5, Heart rate 117. change in SVI 8.3%. Pt not fluid responsive. Dr Osuna notified via [employer] messaging
[2022-12-22] MEDS: calcium gluconate 0.9% NaCL 1 GM/50 ML PREMIX IV (17:59)
--- NOTE | 2022-12-22 18:55 | PM.CONSULT ---
Providers/Reason For Consult Consulting Physician/Specialty*: Dr. Celestino Rueda DO/General surgery Reason for Consult*: Nausea and abdominal pain Attending Physician: Lane Davison MD Primary Care Provider: DARSHANA Gallo History of Present Illness History of Present Illness Jeremie Alexander is a 62 year old male who was recently in the hospital for COVID-19 and small bowel ileus. He underwent an exploratory laparotomy by another surgeon for possible small bowel obstruction. No obstruction was identified. He comes back to the hospital now with shortness of breath and nausea. He denies any very significant abdominal pain. However he is very somnolent. He says he is having regular bowel movements. He was found to be septic of a UTI. CT of the abdomen and pelvis shows ileus and constipation Review of Systems General: Reports: 10 or more systems reviewed and unremarkable except in HPI and below Medications/Allergies Home Medications Medication Instructions Recorded Confirmed Last Taken Type tamsulosin 0.4 mg capsule 0.4 mg PO QAM 11/23/20 12/21/22 12/21/22 History lisinopril 40 mg tablet 40 mg PO QAM 03/27/22 12/21/22 09/11/22 History potassium gluconate 595 mg (99 mg) 595 mg PO QAM 03/27/22 12/21/22 12/21/22 History tablet furosemide 40 mg tablet (Lasix) 40 mg PO QAM #30 tabs 03/31/22 12/21/22 12/21/22 Rx melatonin 5 mg capsule 5 mg PO BEDTIME #30 caps 03/31/22 12/21/22 12/20/22 Rx loperamide 2 mg capsule (Imodium 2 mg PO QID PRN loose stool #14 04/23/22 12/21/22 Unknown Rx A-D) caps CUFF AND COLLAR SLING #1 ea 05/07/22 12/21/22 Unknown Rx rosuvastatin 20 mg tablet 20 mg PO BEDTIME #30 tabs 05/19/22 12/21/22 12/20/22 Rx acetaminophen 500 mg tablet 500 mg PO Q6H PRN Pain 07/23/22 12/21/22 Unknown History (Tylenol Extra Strength) tizanidine 4 mg tablet 4 mg PO BID PRN muscle spasticity 08/31/22 12/21/22 Unknown Rx #60 tabs ondansetron 8 mg disintegrating 8 mg PO Q8H PRN Nausea 09/12/22 12/21/22 Unknown History tablet quetiapine 200 mg tablet (Seroquel) 200 mg PO BEDTIME 09/12/22 12/21/22 12/20/22 History dicyclomine 20 mg tablet 20 mg PO TID PRN Abdominal 09/29/22 12/21/22 Unknown Rx Discomfort #90 tabs sertraline 50 mg tablet (Zoloft) 100 mg PO QAM #30 tabs 09/29/22 12/21/22 12/21/22 Rx Prostat-Liquid See Rx Instructions .Route .COMPLEX 12/21/22 12/21/22 12/21/22 History amlodipine 10 mg tablet 10 mg PO DAILY 12/21/22 12/21/22 Unknown History carvedilol 12.5 mg tablet 12.5 mg PO BID 12/21/22 12/21/22 Unknown History celecoxib 200 mg capsule 200 mg PO BID 12/21/22 12/21/22 12/21/22 History hydrocodone 5 mg-acetaminophen 325 1 tab PO Q6H 12/21/22 12/21/22 Unknown History mg tablet oppzaceq-qzt-esxsn acid 300 1 tab PO DAILY 12/21/22 12/21/22 12/21/22 History mcg-lycopene 600 mcg-lutein 300 mcg tablet (Centrum Silver Men) sennosides 8.6 mg tablet (senna) 8.6 mg PO BID 12/21/22 12/21/22 12/21/22 History Allergies Allergy/AdvReac Type Severity Reaction Status Date / Time ticagrelor [From Brilinta] Allergy Unknown ALGY-Hives Verified 12/21/22 13:40 trazodone Allergy Unknown ADR-Nightma Verified 12/21/22 13:40 re Current Medications Generic Name Dose Route Start Last Admin Trade Name Freq PRN Reason Stop Dose Admin Acetaminophen 650 mg 12/21/22 18:35 12/22/22 18:01 Acetaminophen 325 Mg Tablet PO 650 mg Q6H PRN Administration Mild/Mod Pain Or Temp >/= 101 Dexamethasone 6 mg 12/22/22 10:00 12/22/22 10:31 Dexamethasone 10 Mg/Ml Inj IVP 6 mg Q24H SAVANAH Administration Docusate Sodium 100 mg 12/21/22 18:35 12/22/22 17:59 Docusate Sodium 100 Mg Capsule PO 100 mg BID SAVANAH Administration Heparin Sodium (Porcine) 5,000 unit 12/21/22 20:00 12/22/22 08:29 Heparin 5,000 Unit/Ml Inj 1 Ml SUBCUT 5,000 unit Q12H SAVANAH Administration Meropenem 1,000 mg/ Sodium 50 mls @ 100 mls/hr 12/21/22 17:30 12/22/22 17:55 Chloride IV 100 mls/hr Q8H SAVANAH Administration Protocol Vancomycin/PEG/NADA/Lysine/Water 1,500 mg in 300 mls @ 200 mls/hr 12/21/22 19:30 12/22/22 14:55 Vancocin IV Infused Q18H SAVANAH Infusion Sodium Chloride 1,000 mls @ 75 mls/hr 12/21/22 20:00 12/22/22 15:30 Sodium Chloride 0.9% IV 75 mls/hr .[id number] SAVANAH Infusion Norepinephrine Bitartrate 4 mg 254 mls @ 0 mls/hr 12/21/22 20:00 12/22/22 17:14 / Dextrose IV 18 mcg/min .Q0M SAVANAH 68.58 mls/hr Titration Protocol Per Protocol Albumin Human 25 g in 100 mls @ 60 mls/hr 12/22/22 10:30 12/22/22 17:58 Albumin IV 60 mls/hr Q8H SAVANAH Administration Ipratropium [place] 0.5 mg 12/21/22 20:00 12/22/22 13:51 Ipratropium 0.5 Mg/2.5 Ml Neb INHALATION 0.5 mg Q6H.RESP SAVANAH Administration Lactulose 30 gm 12/22/22 13:15 12/22/22 13:22 Lactulose Oral Liq 20 Gm/30 Ml Udc PO 30 gm Q8H SAVANAH Administration Levalbuterol HCl 0.63 mg 12/21/22 20:00 12/22/22 13:51 Levalbuterol 0.63 Mg/3 Ml Neb INHALATION 0.63 mg Q6H.RESP SAVANAH Administration Magnesium Hydroxide 30 ml 12/21/22 18:45 12/22/22 08:28 Magnesium Hydroxide 30 Ml Udc PO 30 ml DAILY SAVANAH Administration Protocol Morphine Sulfate 2 mg 12/21/22 18:35 12/22/22 15:06 Morphine 4 Mg/Ml Sdv 1 Ml IVP 2 mg Q4H PRN Administration SEVERE PAIN Ondansetron HCl 4 mg 12/21/22 18:35 12/22/22 09:59 Ondansetron 2 Mg/Ml Sdv 2 Ml IVP 4 mg Q6H PRN Administration vomiting, or N/V if npo Pantoprazole Sodium 40 mg 12/21/22 20:00 12/21/22 19:42 Pantoprazole 40 Mg Sdv IVP 40 mg Q24H SAVANAH Administration Quetiapine Fumarate 200 mg 12/21/22 21:00 12/21/22 20:23 Quetiapine 100 Mg Tablet PO 200 mg BEDTIME SAVANAH Administration Sertraline HCl 100 mg 12/22/22 06:00 12/22/22 06:01 Sertraline 100 Mg Tablet PO 100 mg QAM SAVANAH Administration PFSH Acute PFSH: Medical History Acute ischemic stroke Afib Anxiety and depression Atrial fibrillation Atrial fibrillation, chronic Back pain CAD (coronary artery disease) Chest pain Chest pain Chronic anticoagulation Chronic thoracic back pain Compression fracture Diabetes Displaced fracture of proximal end of humerus Disruption of external operation (surgical) wound, not elsewhere classified, subsequent encounter Flu-like symptoms Focal sensory loss History of posttraumatic stress disorder (PTSD) HTN (hypertension) Humerus fracture Hypertensive urgency Intractable pain Lacunar infarction Major depressive disorder, 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, 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 Pacemaker Pneumonia Post-traumatic stress disorder, chronic Pressure ulcer of sacral region, stage 2 Psychiatric care SSS (sick sinus syndrome) Suicidal thoughts Syncope Tachycardia Transaminitis Traumatic compression fracture of T12 thoracic vertebra Traumatic compression fracture of thoracic vertebra Surgical History Gastric banding status S/P kyphoplasty S/P placement of cardiac pacemaker Status post cholecystectomy Family History Father CAD (coronary artery disease) Mother Cancer Social History Smoking and tobacco status: former smoker Second hand smoke exposure: No Alcohol intake: never Substance/Drug Use: never Household members: spouse Housing: House Vitals/I&O/Wt Last Vital Signs Temp 98.5 F 12/22/22 17:00 Pulse 91 12/22/22 18:15 Resp 17 12/22/22 18:15 BP 103/77 12/22/22 18:15 Pulse Ox 95 12/22/22 18:15 O2 Del Method Nasal Cannula 12/22/22 13:52 O2 Flow Rate 2 12/22/22 13:52 12/22/22 12/22/22 12/22/22 06:59 14:59 22:59 Intake Total 1127.763 / 3731.500 1054.486 / 1054.486 369.408 / 1423.894 Output Total 800 / 800 750 / 750 Balance 327.763 / 2931.500 1054.486 / 1054.486 -380.592 / 673.894 Weight last 48 hrs Weight 218 lb 14.4 oz Weight 226 lb Weight 212 lb 7 oz Weight 240 lb Physical Exam Narrative: General : Patient is well developed , no acute distress, oriented x3 but somnolent Head : Normal cephalic, a-traumatic. Ears : Pinnae and external canal are normal. Hearing is normal. Eyes : PERRLA, Sclera and injection are normal. No conjunctival discharge. Nose : Mucous membranes are without erythema. Throat : buccal mucosa is normal, gums are without significant recession or hypertrophy. Lungs : Equal chest rise bilaterally, no use of accessory muscles, trachea is midline. Cor : Rate and rhythm are normal. Abdomen : Soft, ND, NT, no g/r/m Extremities : No edema, no cyanosis or clubbing, dorsalis pedis pulses are present bilaterally, non-tender to palpation of calves. Upper extremities are normal bilaterally. Back : non-tender to palpation, no CVA tenderness. Urinary Catheter Management: Nuñez: Cath Placed During This Visit: yes Reason for Continuing Indwelling Catheter: Accurate Measurement of Urinary Output in Critically Ill Patients Urinary Catheter Date of Insertion: 12/21/22 Data 12/22/22 02:26 12/22/22 14:58 Micro: Microbiology 12/21/22 13:43 Blood Culture - Preliminary Blood NEGATIVE TO DATE 12/21/22 13:30 Blood Culture - Preliminary Blood NEGATIVE TO DATE 12/21/22 20:41 Gram Stain - Final Sputum - Expectorated Sputum 12/21/22 15:56 Urine Culture - Preliminary Urine,Clean Catch Gram Negative Rods 12/21/22 15:56 Bacterial Antigens - Final Urine Kidney 12/21/22 15:56 Legionella Urinary Antigen - Final Unknown Source A&P Assessment and plan (1) Nausea: (2) Ileus: Plan Clear liquid diet Lactulose Fleets enema No acute surgical intervention Medical management per hospitalist Coding Level of Care Code 29690 Diagnoses Nausea R11.0 Ileus K56.7
--- NOTE | 2022-12-22 18:57 | PC.NURSE ---
Pt rested in bed throughout shift. He has called out frequently for numerous various things. He has refused repositioning several times this shift. HIs bottom has old area that is pink. Levophed gtt still infusing , it has increased from 12mcg/min to 17mcg/min this shift. He was started on Albumin, IV fluids. Calcium replacement per IV. He remained on 2lpm/NC, his home O2 amount. He has had 2 enemas today with no results. He is unable to hold them for any length of time. He has received acetaminophen twice and Morphine twice this shift for his chronic back and leg pain. Urine output of 750ml this shift of clear dark yellow urine.
[2022-12-22] MEDS: quetiapine 100 mg Tablet 200 MG PO (20:42)
[2022-12-22] MEDS: pantoprazole 40 mg SDV IVP (20:43)
[2022-12-23] VITALS (87 sets, daily range): BP systolic 76–124; BP diastolic 44–79; PULSE 79–96; RESP 11–31; TEMP 36.4–36.6; O2SAT 84–99; BMI 39.3
[2022-12-23] MEDS: sodium chloride 0.9% 1,000 ML 75 ML IV (00:36)
[2022-12-23] MEDS: meropenem 1,000 MG in sodium chloride 0.9% (plus) 50 ML 100 MG IV ×3 (00:36→18:06)
--- NOTE | 2022-12-23 02:13 | PC.PHAR ---
Vancomycin Trough to be drawn 12/24 0030, please hole 0130 dose until drawn. Thank you, Meghna Rivera [facility]
[2022-12-23] MEDS: albumin 25 G/100 ML BAG 60 G IV ×3 (02:40→18:06)
[2022-12-23] MEDS: levalbuterol 0.63 mg/3 mL Neb INHALATION ×4 (03:17→20:05)
[2022-12-23] MEDS: ipratropium 0.5 mg/2.5 mL Neb INHALATION ×4 (03:17→20:05)
[2022-12-23 03:30] LABS: Basophils % 0.3 %; Hematocrit 25.7 % (42.0-52.0); Hemoglobin 8.3 g/dL (11.7-16.6); Lymphocytes # 0.3 10^3/uL (0.8-4.8); Mean Corpuscular HGB Conc 32.3 g/dL (30.0-36.0); Mean Corpuscular Hemoglobin 33.1 pg (28.0-34.0); Mean Corpuscular Volume 102.4 fl (80-94); Mean Platelet Volume 10.9 fL (7.4-10.4); Monocytes # 0.1 10^3/uL (0.2-0.9); Monocytes % 2.5 %; Neutrophils # 3.21 10^3/uL (1.8-7.7); Neutrophils % 89.9 %; Nucleated Red Blood Cells % 0 %; Platelet Count 143 10^3/cmm (130-400); Red Blood Count 2.51 10^6/uL (4.1-5.3); White Blood Count 3.6 10^3/uL (4.0-10.0)
[2022-12-23 03:54] LABS: Alanine Aminotransferase 20 U/L (0-41); Albumin Level 2.5 g/dL (3.5-5.2); Alkaline Phosphatase 278 U/L (40-130); Anion Gap 10.4 (5-19); Aspartate Amino Transferase 33 U/L (0-40); Blood Urea Nitrogen 14 mg/dL (8-23); Calcium 7.4 mg/dL (8.5-10.5); Carbon Dioxide 25 mmol/L (22-29); Chloride 94 mmol/L (98-107); Globulin 2.7 g/dL (1.3-4.6); Glomerular Filtration Rate 114.6 mL/min (90-130); Glucose 172 mg/dL (65-115); Osmolality Calculated 263 mOsm/kg (285-295); Potassium 5.4 mmol/L (3.5-5.1); Sodium 124 mmol/L (136-145); Total Bilirubin 0.7 mg/dL (0.15-1.2); Total Protein 5.2 g/dL (6.6-8.7)
[2022-12-23] MEDS: norepinephrine 8 MG in dextrose 5 % 500 ML 53.34 MG IV (04:40)
[2022-12-23] MEDS: lactulose oral liq 20 gm/30 mL UDC 30 GM PO ×2 (06:02→14:40)
[2022-12-23] MEDS: sertraline 100 mg Tablet PO (06:02)
[2022-12-23] MEDS: heparin 5,000 unit/mL INJ 1 mL 5000 UNIT SUBCUT ×2 (08:42→20:41)
[2022-12-23] MEDS: acetaminophen 325 mg Tablet 650 MG PO (08:42)
[2022-12-23] MEDS: magnesium hydroxide 30 mL UDC PO (08:42)
[2022-12-23] MEDS: docusate sodium 100 mg Capsule PO (08:42)
[2022-12-23] MEDS: vancomycin 1,500 MG/300 ML PIGGYBACK 200 MG IV (08:43)
--- NOTE | 2022-12-23 09:47 | PC.CHAP ---
Pastoral Care Encounter/Spiritual Assessment Type of Contact [] Declined dry cell sealer visit [] Patient/Family/Request visit [] Outpatient visit [] Follow-up visit [] Physician referral [] Code/Alert [x] Routine visit [] Staff referral [] Actively dying [x] Patient sleeping [] Family support [] [] Out of room [] Palliative care [] [] Receiving care in room [] Pre-surgical visit [] Trauma [] Long length of stay [x] ICU visit [] Other: Relational/Emotional Strength [] Patient feels connected with others/family/visitors/staff [] Distress [] Loneliness/isolation [] Abandonment Spirituality of Patient [] Person of Sherrie [] Attends Gnosticist of their Sherrie [] Believes in Prayer [] Reads Bible or Latter Day materials [] There are Spiritual issues to be addressed Seed Expert Interventions [x] Prayer [] Active listening [] Non-anxious presence [] Spiritual/emotional support [] Crisis/trauma care [] Spiritual counseling [] Bereavement support [] Provided bereavement packet [] Provided Bible/devotional materials [] Provided toy/stuffed animal, coloring book to patient or family member [] Provided Communion [] Anointing/Argyle [] Salvation [x] Completed spiritual assessment [] Other: Impact on Illness or Injury [] Angry [] Fearful [] Anxious [] Often cries [] Exhaustion [] Unable to work [] Unable to attend anabaptism [] Unable to walk/stand [] Unable to read [] Unable to drive [] Unable to eat/drink [] Unable to sleep [] Unable to be with family [] Patient intubated [] Other: Summary Time spent with patient
[2022-12-23] MEDS: FUROsemide 10 mg/mL SDV 4mL 40 MG IVP (10:49)
[2022-12-23] MEDS: dexamethasone 10 mg/mL INJ 6 MG IVP (10:49)
--- NOTE | 2022-12-23 13:18 | P.PN_ITS ---
Subjective Subjective: Today morning patient seen in the ICU. He is still on 14 of Levophed, on 2 L of oxygen supplementation. Patient looks uncomfortable, awake, breathing through his mouth open. States he is with his mouth open because he is Having abdominal pain. Maps are maintained at 70. Documented output in last 24 hours more than 2 L. Overall 4 L positive since admission. Cheetah exam done shows that anne oneil is not fluid responsive with SVI of around 8.3%. Had 2 episodes of enema yesterday without any bowel movements but did have bowel movement today morning. Vitals/I&O/Wt Last Vital Signs Temp 97.9 F 12/23/22 07:05 Pulse 91 12/23/22 08:00 Resp 18 12/23/22 12:00 BP 92/54 12/23/22 06:15 Pulse Ox 95 12/23/22 08:00 O2 Del Method Nasal Cannula 12/23/22 08:00 O2 Flow Rate 2 12/23/22 08:00 12/22/22 12/23/22 12/23/22 22:59 06:59 14:59 Intake Total 937.162 / 7123.859 9087.952 / 3192.600 50 / 50 Output Total 1400 / 1400 650 / 2050 Balance -462.838 / 591.648 550.952 / 1142.600 50 / 50 Weight last 48 hrs Weight 103.873 kg Weight 99.291 kg Weight 102.512 kg Weight 96.36 kg Physical Exam Narrative: General: Mild acute distress abdominal pain, AO x3, sick appearing, on 3 L HEENT: PERRLA, pupils bilaterally equal and reactive Chest: Normal vesicular breath sounds, no added sounds, equal good air entry bilaterally CVS: S1-S2 regular, no murmurs, no tachycardia, no gallops, no rubs Abdomen: Soft, distended, generalized tenderness, no organomegaly, sluggish bowel sounds present Neuro: No focal deficits, no facial deformity, AO x3, power 5/5 in all limbs Urinary Catheter Management: Nuñez: Cath Placed During This Visit: yes Reason for Continuing Indwelling Catheter: Accurate Measurement of Urinary Output in Critically Ill Patients Urinary Catheter Date of Insertion: 12/21/22 Data 12/23/22 03:01 12/23/22 03:01 Micro: Microbiology 12/21/22 15:56 Urine Culture - Final Urine,Clean Catch Escherichia coli 12/21/22 20:41 Gram Stain - Final Sputum - Expectorated Sputum Sputum Culture - Preliminary Gram Negative Rods 12/21/22 13:43 Blood Culture - Preliminary Blood NEGATIVE TO DATE 12/21/22 13:30 Blood Culture - Preliminary Blood NEGATIVE TO DATE 12/21/22 15:56 Bacterial Antigens - Final Urine Kidney A&P Assessment and plan (1) Shock: (2) Acute hyponatremia: (3) Ileus: (4) Abdominal pain: (5) Nausea and vomiting: (6) UTI (urinary tract infection): (7) Hyperkalemia: (8) Hypoxia: (9) COVID-19: (10) Protein-energy malnutrition: Plan 62-year-old with past medical history of CAD, severe depression with history of suicidal ideation, chronic back pain with most recent history of small bowel obstruction requiring ex lap, ESBL E. coli UTI and pneumonia, hypertension who presented from the skilled nursing with concerns for abdominal pain, nausea and vomiting and found to be slightly more hypoxic than baseline and hypotensive not responsive to fluid challenges. Shock: Sepsis versus hypovolemic. Wean Levophed keeping neuro pressure 65. Follow-up culture results. Urine culture growing E. coli. Sensitivities appreciated. Sputum culture growing gram-negative rods as well. Given Cheetah exam patient is not fluid responsive. Stop IV fluids. Patient does sound mildly fluid overloaded today. IV Lasix 40 mg one-time. Continue with IV albumin. Patient has history of ESBL E. coli in sputum and urine and Pseudomonas in abdominal cavity from most recent or culture. Stop vancomycin. Continue with meropenem. Nuñez catheterization. Strict input output charting. Hypoxia: Most likely in setting of abdominal distention along with COVID-19 along with mild aspiration and atelectasis given poor breathing effort. COVID-19 positive for more than 10 days. No need for isolation. Dexamethasone 6 mg IV daily. Aggressive pulmonary toilet. Start on chest vest today. Antibiotic as above. Oxygen supplementation keeping saturation over 90%. Ipratropium, Xopenex every 6 hours, budesonide twice daily for now. Out of bed to chair. Hyponatremia: Baseline sodium seems to be around more than 140. Continues to improve. 124 today. Mixed etiology. Could be secondary to hypovolemia the patient is third spacing given hypoalbuminemia. Appreciate urine studies. If blood pressures improve can plan for IV Lasix but for now we will hold off. Monitor sodium level every 6 hourly for now. Target improvement in sodium of 8 to 10 mg in next 24 hours. Hyperkalemia: Persistently elevated. Most likely in setting of dehydration along with home dose of lisinopril. Medical reconciliation done. D50 with 10 units of insulin. Repeat potassium level in evening. Nausea and vomiting/abdominal pain: Most likely in setting of ileus. Patient has a recent history of small bowel obstruction post ex lap. CT abdomen pelvis negative for bowel obstruction but consistent with ileus. Could be in setting of electrolyte abnormality. Appreciate surgical recommendations. Recommend aggressive bowel regimen. Started on clear liquid diet as per surgical recommendations. Concerns for aspiration for now. We will hold off on clear liquid diet and we will continue with bowel regimen. N.p.o. for now. UTI: Follow-up urine culture. Above antibiotics will suffice for UTI. A-fib: Rate controlled currently. Hold off on Coreg for now. On last discharge it seems Eliquis was stopped given borderline anemia at the time. For now we will continue to hold. Will discuss in detail with the patient prior to discharge and restart if needed. Telemetry. CODE STATUS: Discussed in detail with the patient. He confirms with recent changes CODE STATUS to DNI/DNR on last admission. Is agreeable for ICU admission and vasopressors if needed. His Ms. Sanchez will be the DPOA. N.p.o. Protonix OPD prophylaxis Heparin for DVT prophylaxis. Tried to call patient's /nurse Laura over the phone. Phone first going directly to [employer] as not reachable. Later was able to get through to [phone] number but did not last picker so left a voice message. Patient is critically sick. Attestations Medical Necessity Statement*: Requires further hospitalization for management of septic shock in setting of UTI, pneumonia, persistent severe hyponatremia in a patient who is critically sick, at baseline severe protein energy malnutrition Coding Level of Care Code Critical Care >/= 30 minutes Critical care time (in minutes): 70 This patient has a high probability of clinically significant, sudden or life threatening deterioration of the patient's (neurological/pulmonary/cardiac/renal/ID/endocrine) systems required my full, direct attention, the highest level of physician preparedness for urgent intervention and personal management. I managed/supervised life or organ supporting interventions that required frequent physician assessment. I devoted my full attention in the ICU to the direct care of this patient for the period of time indicated above. Time I spent with family or surrogate(s) is included only if the patient was incapable of providing necessary information or pa rticipating in decision making. This time includes the following services provided: Telemetry review Hemodynamic interpretation, assessment and management Review and interpretation of CXR Review and interpretation of lab values Review and interpretation of microbiologic data and culture results Review of medications and administration Review and interpretation of Nutrition requirements and management Discussion of management with other consultants and services Clinical update to family members Diagnoses Shock R57.9 Acute hyponatremia E87.1 Ileus K56.7 Abdominal pain R10.9 Nausea and vomiting R11.2 UTI (urinary tract infection) N39.0 Hyperkalemia E87.5 Hypoxia R09.02 COVID-19 U07.1 Protein-energy malnutrition E46
--- NOTE | 2022-12-23 13:20 | PC.NURSE ---
Updated Dr Osuna via voalte. Dr returned call. 600ml of urine output since Lasix. Pt had an SPO2 of 84%, poor cough effort. Cannot even use the IS and [place] effectively, next to no effort. We discussed aspiration. Orders to keep ot NPO except for meds and Chest Physiotherapy received.
[2022-12-23] MEDS: norepinephrine 8 MG in dextrose 5 % 500 ML 49.53 MG IV (14:44)
--- NOTE | 2022-12-23 15:00 | PC.NURSE ---
Spoke with pt's son, Giancarlo Alexander via telephone. Pt's progress, condition and plan of care discussed. Understanding verbalized. Son stated he would be here tomorrow to visit his foather.
[2022-12-23] MEDS: morphine 4 mg/mL SDV 1 mL 2 MG IVP ×2 (15:02→19:12)
[2022-12-23 16:48] LABS: Anion Gap 11.4 (5-19); Blood Urea Nitrogen 17 mg/dL (8-23); Calcium 7.8 mg/dL (8.5-10.5); Carbon Dioxide 28 mmol/L (22-29); Chloride 91 mmol/L (98-107); Glucose 162 mg/dL (65-115); Osmolality Calculated 265 mOsm/kg (285-295); Potassium 5.4 mmol/L (3.5-5.1); Sodium 125 mmol/L (136-145)
--- NOTE | 2022-12-23 18:54 | PM.PN ---
Subjective Subjective: Positive bowel movement today Vitals/I&O/Wt Last Vital Signs Temp 97.8 F 12/23/22 14:45 Pulse 83 12/23/22 16:00 Resp 18 12/23/22 16:00 BP 108/44 12/23/22 16:00 Pulse Ox 97 12/23/22 16:00 O2 Del Method Nasal Cannula 12/23/22 16:00 O2 Flow Rate 2 12/23/22 16:00 12/23/22 12/23/22 12/23/22 06:59 14:59 22:59 Intake Total 1200.952 / 3192.600 1600.500 / 1600.500 Output Total 650 / 2050 375 / 375 Balance 550.952 / 4213.516 6870.500 / 1600.500 -375 / 1225.500 Weight last 48 hrs Weight 229 lb Weight 218 lb 14.4 oz Weight 226 lb Physical Exam Narrative: General: No acute distress Abdomen soft, distended, nontender, no guarding rebound or masses Urinary Catheter Management: Nuñez: Cath Placed During This Visit: yes Reason for Continuing Indwelling Catheter: Accurate Measurement of Urinary Output in Critically Ill Patients Urinary Catheter Date of Insertion: 12/21/22 Data 12/24/22 05:39 12/24/22 05:39 Micro: Microbiology 12/21/22 15:56 Urine Culture - Final Urine,Clean Catch Escherichia coli 12/21/22 20:41 Gram Stain - Final Sputum - Expectorated Sputum Sputum Culture - Preliminary Gram Negative Rods A&P Assessment and plan (1) Nausea: (2) Ileus: Plan Clear liquid diet Lactulose No acute surgical intervention Medical management per hospitalist Attestations Medical Necessity Statement*: Per primary Coding Level of Care Code Acute Code for g Fwd Diagnoses Nausea R11.0 Ileus K56.7
--- NOTE | 2022-12-23 18:55 | PC.NURSE ---
Cell phone: stated she was going to take patient's cell phone home when she left.
--- NOTE | 2022-12-23 20:17 | PC.NURSE ---
Shift report: Pt has been very lethargic today. His voice is more garbled. He could not get IS to raise or acapello to flutter today, at several attempts. His coughing attempts are very poor and weak. His O2 sats have dropped 2-3 times this shift, after coughing and repositioning sats improved. He has not wanted to eat ant breakfast or lunch. He is now NPO except for medications due to aspiration risks. There has been little to no effort from pt today for eating, coughing, or moving. He has had good urine output, 975ml this shift. He did have a loose extra large BM today. Bathing provided today.
[2022-12-23] MEDS: pantoprazole 40 mg SDV IVP (20:41)
[2022-12-23] MEDS: quetiapine 100 mg Tablet PO (20:43)
[2022-12-24] VITALS (90 sets, daily range): BP systolic 86–119; BP diastolic 43–79; PULSE 82–102; RESP 14–31; TEMP 36.6–37; O2SAT 86–98; BMI 40.5
[2022-12-24 00:43] LABS: Hematocrit 25.1 % (42.0-52.0); Hemoglobin 7.8 g/dL (11.7-16.6); Lymphocytes # 0.4 10^3/uL (0.8-4.8); Lymphocytes % 4.7 %; Mean Corpuscular HGB Conc 31.1 g/dL (30.0-36.0); Mean Corpuscular Hemoglobin 32.8 pg (28.0-34.0); Mean Corpuscular Volume 105.5 fl (80-94); Mean Platelet Volume 10.7 fL (7.4-10.4); Monocytes # 0.3 10^3/uL (0.2-0.9); Monocytes % 3.3 %; Neutrophils # 6.86 10^3/uL (1.8-7.7); Neutrophils % 91.5 %; Nucleated Red Blood Cells % 0 %; Platelet Count 117 10^3/cmm (130-400); Red Blood Count 2.38 10^6/uL (4.1-5.3); Red Cell Distribution Width 15.2 % (12.1-15.1); White Blood Count 7.5 10^3/uL (4.0-10.0)
[2022-12-24 01:09] LABS: Vancomycin Trough 24.1 ug/mL (10-15)
[2022-12-24 01:10] LABS: Alanine Aminotransferase 18 U/L (0-41); Albumin Level 3.6 g/dL (3.5-5.2); Alkaline Phosphatase 210 U/L (40-130); Anion Gap 9.5 (5-19); Aspartate Amino Transferase 33 U/L (0-40); Blood Urea Nitrogen 17 mg/dL (8-23); Calcium 7.8 mg/dL (8.5-10.5); Carbon Dioxide 28 mmol/L (22-29); Chloride 93 mmol/L (98-107); Globulin 2.1 g/dL (1.3-4.6); Glomerular Filtration Rate 114.6 mL/min (90-130); Glucose 133 mg/dL (65-115); Osmolality Calculated 263 mOsm/kg (285-295); Potassium 5.5 mmol/L (3.5-5.1); Sodium 125 mmol/L (136-145); Total Bilirubin 0.6 mg/dL (0.15-1.2); Total Protein 5.7 g/dL (6.6-8.7)
[2022-12-24] MEDS: meropenem 1,000 MG in sodium chloride 0.9% (plus) 50 ML 100 MG IV ×3 (01:57→18:57)
[2022-12-24] MEDS: albumin 25 G/100 ML BAG 60 G IV ×3 (01:58→18:58)
--- NOTE | 2022-12-24 02:35 | PC.PHAR ---
Vancomycin Trough was 24.1 on 12/24/22 @0028. Adjusted dose of 1500mg q18h to q24h. Will continue to follow. Thank you, Meghna Rivera [facility]
[2022-12-24] MEDS: levalbuterol 0.63 mg/3 mL Neb INHALATION ×4 (02:59→20:11)
[2022-12-24] MEDS: ipratropium 0.5 mg/2.5 mL Neb INHALATION ×4 (02:59→20:12)
[2022-12-24] MEDS: norepinephrine 8 MG in dextrose 5 % 500 ML 30.48 MG IV (03:31)
[2022-12-24] MEDS: FUROsemide 10 mg/mL SDV 4mL 40 MG IVP ×3 (05:33→18:57)
[2022-12-24 06:08] LABS: Basophils % 0.3 %; Hemoglobin 7.8 g/dL (11.7-16.6); Lymphocytes # 0.4 10^3/uL (0.8-4.8); Lymphocytes % 4.9 %; Mean Corpuscular HGB Conc 31.2 g/dL (30.0-36.0); Mean Corpuscular Hemoglobin 33.3 pg (28.0-34.0); Mean Corpuscular Volume 106.8 fl (80-94); Mean Platelet Volume 10.8 fL (7.4-10.4); Monocytes # 0.3 10^3/uL (0.2-0.9); Monocytes % 3.9 %; Neutrophils # 6.86 10^3/uL (1.8-7.7); Neutrophils % 90.2 %; Nucleated Red Blood Cells % 0 %; Platelet Count 129 10^3/cmm (130-400); Red Blood Count 2.34 10^6/uL (4.1-5.3); Red Cell Distribution Width 15.5 % (12.1-15.1); White Blood Count 7.6 10^3/uL (4.0-10.0)
[2022-12-24 06:29] LABS: Alanine Aminotransferase 21 U/L (0-41); Albumin Level 3.7 g/dL (3.5-5.2); Alkaline Phosphatase 200 U/L (40-130); Anion Gap 10.4 (5-19); Aspartate Amino Transferase 40 U/L (0-40); Blood Urea Nitrogen 18 mg/dL (8-23); Carbon Dioxide 28 mmol/L (22-29); Chloride 93 mmol/L (98-107); Creatinine Clr Calc Pharmacy 122.8826; Globulin 2.2 g/dL (1.3-4.6); Glomerular Filtration Rate 114.6 mL/min (90-130); Glucose 105 mg/dL (65-115); Osmolality Calculated 264 mOsm/kg (285-295); Potassium 5.4 mmol/L (3.5-5.1); Sodium 126 mmol/L (136-145); Total Bilirubin 0.6 mg/dL (0.15-1.2); Total Protein 5.9 g/dL (6.6-8.7)
[2022-12-24] MEDS: vancomycin 1,500 MG/300 ML PIGGYBACK 200 MG IV ×2 (07:39→18:58)
[2022-12-24] MEDS: heparin 5,000 unit/mL INJ 1 mL 5000 UNIT SUBCUT ×2 (07:39→20:12)
--- NOTE | 2022-12-24 09:37 | XR_ITS ---
WS: [id number] Portable chest and abdomen, nasogastric tube placement, 12/24/2022 Clinical Data: Hypoxia Comparison: Portable chest, 12/22/2022 Findings: The nasogastric tube appears to end in the body of the stomach. Cardiac pacemaker remains in the same position. There are monitor leads on the lower chest and abdominal wall. There is a large amount of air in the small bowel and the colon. There are surgical clips in the left side of the abdomen. There is vertebroplasty cement in the lower thoracic vertebral bodies. XR/XR chest 1V portable [id number] Impression: 1. Nasogastric tube appears to end in the body of stomach. 2. Dilatation of the small bowel and colon, most likely generalized ileus uncha nged.
[2022-12-24 10:22] LABS: Ammonia 180 umol/L (16-60)
[2022-12-24 10:29] LABS: ABG PH Result 7.21 (7.35-7.45); Arterial Blood Gas Hematocrit 25.6 % (42-52); Base Excess ABG 2.2 mmol/L (-2.0-2.0); Blood Gas Allen Test Pos; Blood Gas Operator Identificat GD; Blood Gas Sample Site Radial, left; Blood Gas Sample Type Arterial; Carboxyhemoglobin 0.8 %THgb (0.4-20.1); HCO3 ABG 30.9 mmol/L (22-26); Ionized Calcium Level - ABG 1.2 mmol/L (1.1-1.4); Methemoglobin 1.8 % (0.4-1.5); Oxygen Saturation ABG 92.4; PO2 ABG 68.1 mmHg (80.0-100.0); Potassium Level - ABG 5.1 mmol/L (3.5-5.0); Total Hemoglobin 8.4 g/dL (14-18)
[2022-12-24 10:30] LABS: ABG PCO2 76.6 mmHg (35-45)
[2022-12-24 10:31] LABS: Oxygen Device OXYMASK
[2022-12-24] MEDS: magnesium hydroxide 30 mL UDC PO (10:49)
[2022-12-24] MEDS: docusate sodium 100 mg Capsule PO ×2 (10:49→18:57)
[2022-12-24] MEDS: dexamethasone 10 mg/mL INJ 6 MG IVP (10:50)
--- NOTE | 2022-12-24 11:15 | PC.SOCIAL ---
Imm update Imm updated with maia's by phone. Copy of page 2 provided. Patient and family verbalized understanding. Copy in chart initialed, dated and
[2022-12-24] MEDS: ondansetron 2 mg/ML SDV 2 mL 4 MG IVP (12:26)
[2022-12-24] MEDS: lactulose oral liq 20 gm/30 mL UDC 30 GM PO ×3 (12:29→23:50)
--- NOTE | 2022-12-24 13:21 | PC.PT ---
Contacted [facility], discussed patient with therapist and nursing staff there, patient demonstrating no improvement, requiring maximum assist of 2 persons for out of bed or Eryn lift usage, and patient remains resistive to participation with physical therapy, and stays in bed all the time, except for occasional out of bed for shower or bathroom. Discussed above with patient physician Dr. Chatman, and it was decided to discharge physical therapy, due to patient being at prior level of function, in addition to patient going on hospice care this weekend. No further PT involvement planned at this time.
[2022-12-24] MEDS: metoclopramide 5 mg/mL SDV 2 mL 10 MG IVP ×2 (15:39→20:12)
--- NOTE | 2022-12-24 16:15 | PM.PN ---
Subjective Subjective: Patient had emesis this morning and was made n.p.o. with NG tube to suction. He is very lethargic Vitals/I&O/Wt Last Vital Signs Temp 97.9 F 12/24/22 07:28 Pulse 96 12/24/22 14:28 Resp 22 H 12/24/22 14:28 BP 110/65 12/24/22 07:28 Pulse Ox 95 12/24/22 14:32 O2 Del Method Nasal Cannula 12/24/22 14:32 O2 Flow Rate 2 12/24/22 14:32 FiO2 35 12/24/22 11:07 12/24/22 12/24/22 12/24/22 06:59 14:59 22:59 Intake Total 336.625 / 2471.839 50 / 50 Output Total 250 / 1475 Balance 86.625 / 996.839 50 / 50 Weight last 48 hrs Weight 236 lb 5 oz Weight 229 lb Physical Exam Narrative: General: No acute distress, lethargic Abdomen soft, distended, nontender, no guarding rebound or masses Urinary Catheter Management: Nuñez: Cath Placed During This Visit: yes Reason for Continuing Indwelling Catheter: Accurate Measurement of Urinary Output in Critically Ill Patients Urinary Catheter Date of Insertion: 12/21/22 Data 12/24/22 05:39 12/24/22 05:39 Micro: Microbiology 12/21/22 15:56 Urine Culture - Final Urine,Clean Catch Escherichia coli A&P Assessment and plan (1) Nausea: (2) Ileus: Plan N.p.o. except meds Lactulose Add Reglan 10 mg IV every 6 No acute surgical intervention Medical management per hospitalist Attestations Medical Necessity Statement*: Per primary Coding Level of Care Code Acute Code for [facility] Fwd Diagnoses Nausea R11.0 Ileus K56.7
[2022-12-24 16:35] LABS: Anion Gap 7.9 (5-19); Blood Urea Nitrogen 18 mg/dL (8-23); Carbon Dioxide 31 mmol/L (22-29); Chloride 97 mmol/L (98-107); Creatinine Clr Calc Pharmacy 122.8826; Glomerular Filtration Rate 114.6 mL/min (90-130); Glucose 99 mg/dL (65-115); Osmolality Calculated 274 mOsm/kg (285-295); Potassium 4.9 mmol/L (3.5-5.1); Sodium 131 mmol/L (136-145)
--- NOTE | 2022-12-24 17:17 | PM.PN ---
Subjective Subjective: Seen multiple times during the day. Had a family meeting with patient's son and at bedside. is the DPOA. Patient has been off Levophed. Continues to remain lethargic with poor effort. Today morning patient was seen on oxygen mask of 10 to 12 L of oxygen supplementation. CBC was done which showed hypercapnic and hypoxic respiratory failure for which we have placed on BiPAP. Urine output seems to be improving. Urine output over the last 24 hours up to 1500 cc. Overall patient is 5 L positive. On telemetry patient did have occasional episodes of VPCs and one episode of nonsustained V. tach. Vitals/I&O/Wt Last Vital Signs Temp 98 F 12/24/22 08:00 Pulse 94 12/24/22 16:15 Resp 15 12/24/22 16:15 BP 100/56 12/24/22 16:15 Pulse Ox 95 12/24/22 16:15 O2 Del Method BiPAP 12/24/22 16:15 O2 Flow Rate 2 12/24/22 14:32 FiO2 35 12/24/22 16:15 12/24/22 12/24/22 12/24/22 06:59 14:59 22:59 Intake Total 336.625 / 2471.839 50 / 50 Output Total 250 / 1475 Balance 86.625 / 996.839 50 / 50 Weight last 48 hrs Weight 107.19 kg Weight 103.873 kg Physical Exam Narrative: General: Mild acute distress abdominal pain, AO x3, sick appearing, intermittently on BiPAP and oxy mask HEENT: PERRLA, pupils bilaterally equal and reactive Chest: Normal vesicular breath sounds, no added sounds, equal good air entry bilaterally CVS: S1-S2 regular, no murmurs, no tachycardia, no gallops, no rubs Abdomen: Soft, distended, generalized tenderness, no organomegaly, sluggish bowel sounds present Neuro: No focal deficits, no facial deformity, AO x3, power 5/5 in all limbs Urinary Catheter Management: Nuñez: Cath Placed During This Visit: yes Reason for Continuing Indwelling Catheter: Accurate Measurement of Urinary Output in Critically Ill Patients Urinary Catheter Date of Insertion: 12/21/22 Data 12/24/22 05:39 12/24/22 16:03 Micro: Microbiology 12/21/22 15:56 Urine Culture - Final Urine,Clean Catch Escherichia coli A&P Assessment and plan (1) Acute respiratory failure with hypoxia and hypercapnia: (2) Shock: (3) Metabolic encephalopathy: (4) Acute hyponatremia: (5) Hyperammonemia: (6) Ileus: (7) Abdominal pain: (8) Nausea and vomiting: (9) UTI (urinary tract infection): (10) Hyperkalemia: (11) Hypoxia: (12) COVID-19: (13) Protein-energy malnutrition: (14) Physical deconditioning: (15) Goals of care, counseling/discussion: Plan 62-year-old with past medical history of CAD, severe depression with history of suicidal ideation, chronic back pain with most recent history of small bowel obstruction requiring ex lap, ESBL E. coli UTI and pneumonia, hypertension who presented from the longterm with concerns for abdominal pain, nausea and vomiting and found to be slightly more hypoxic than baseline and hypotensive not responsive to fluid challenges. Shock: Septic shock. Ruled in. Present on admission. Target organ dysfunction of renal disorder with hyperkalemia and hyponatremia along with poor mentation from metabolic encephalopathy. Keep mean artery pressure 65. Follow-up culture results. Urine culture growing E. coli. Sensitivities appreciated. Sputum culture growing gram-negative rods as well. Culture sensitivities still awaited on sputum culture. Continue with IV albumin. IV Lasix 40 mg one-time. Will repeat in evening depending on urine output. Continue with IV albumin. Patient has history of ESBL E. coli in sputum and urine and Pseudomonas in abdominal cavity from most recent or culture. Continue with meropenem. Nuñez catheterization. Strict input output charting. Metabolic encephalopathy: Most likely in setting of hyperammonia levels, hypercapnic respiratory failure, septic shock, hyponatremia. Cannot rule out secondary to severe protein energy malnutrition and deconditioning. Hyperammonemia: Start on lactulose 30 mg every 6 hourly through NG tube. Target 2-3 soft bowel movements in 24 hours. If does not improve will plan for lactulose enemas. Hypoxic and hypercapnic respiratory failure: Most likely in setting of abdominal distention along with COVID-19 along with mild aspiration and atelectasis given poor breathing effort. COVID-19 positive for more than 10 days. No need for isolation. Dexamethasone 6 mg IV daily. Aggressive pulmonary toilet. Start on chest vest today. BiPAP ventilation keeping saturation over 90%. Repeat ABG in AM. Antibiotic as above. Oxygen supplementation keeping saturation over 90%. Ipratropium, Xopenex every 6 hours, budesonide twice daily for now. Out of bed to chair when possible. Hyponatremia: Baseline sodium seems to be around more than 140. Improved to 131 today. Mixed etiology. Could be secondary to hypovolemia the patient is third spacing given hypoalbuminemia. Continue with IV Lasix. Repeat BMP every 12 hours. Hyperkalemia: Resolved. Ileus: Nausea and vomiting/abdominal pain: Patient has a history of small bowel obstruction post ex lap. Appreciate surgical recommendations. Continue with the lactulose as above. Lactulose as above. Monitor bowel movements. Monitor electrolytes. Place NG tube to intermittent wall suction. Start on IV Reglan. Most likely in setting of ileus. Patient has a recent history of small bowel obstruction post ex lap. UTI: Follow-up urine culture. Above antibiotics will suffice for UTI. A-fib: Rate controlled currently. Hold off on Coreg for now. On last discharge it seems Eliquis was stopped given borderline anemia at the time. For now we will continue to hold. Will discuss in detail with the patient prior to discharge and restart if needed. Telemetry. Having episodes of nonsustained V. tach. Replete 1 g of IV magnesium. Severe physical deconditioning Protein energy malnutrition. Goals of care discussion: Had extensive goals of care discussion at bedside with family including patient's DPOA and son. We discussed that patient's has severe physical deconditioning, malnutrition which has been ongoing for many months. On confirming with longterm patient is not doing much even with physical therapy at longterm. Over hospital as well patient continues to show severe poor motivation. We discussed that unfortunately this all makes patient at a higher risk of more infections, worsening respiratory status and is also the reason for him developing ileus. We discussed currently patient has been severe sepsis and metabolic encephalopathy. As per family they had discussed about this in detail and they will want patient to have better quality of life than quantity of life and they agree if patient does not improve within next 24 to 48 hours they would like to go ahead with hospice. Plan to continue with current treatment for now. Plan to discharge back to longterm with hospice once medically stable. CODE STATUS: Discussed in detail with the patient. He confirms with recent changes CODE STATUS to DNI/DNR on last admission. Is agreeable for ICU admission and vasopressors if needed. His Ms. Sanchez will be the DPOA. N.p.o. Protonix OPD prophylaxis Heparin for DVT prophylaxis. Patient is critically sick Attestations Medical Necessity Statement*: Requires further hospitalization for above defined care involving shock, acute metabolic encephalopathy in setting of hypercapnic respiratory failure, improved natremia, hyperammonemia in a patient with severe ileus, physical deconditioning and protein energy malnutrition Coding Level of Care Code Critical Care >/= 30 minutes Critical care time (in minutes): 90 The high probability of a clinically significant, sudden or life threatening deterioration, as referenced in this documentation, required my full and direct attention, intervention and personal management. The critical care time shown is in addition to time spent performing any reported separately billable procedures and includes the following: [x] Data and vital sign review and interpretation [x] Patient assessment, examination and intervention [x] Medication orders and management [x] Patient/Family updates as able [x] Care Coordination and Documentation. Other Coding Information This patient has a high probability of clinically significant, sudden or life threatening deterioration of the patient's (neurological/pulmonary/cardiac/renal/ID/endocrine) systems required my full, direct attention, the highest level of physician preparedness for urgent intervention and personal management. I managed/supervised life or organ supporting interventions that required frequent physician assessment. I devoted my full attention in the ICU to the direct care of this patient for the period of time indicated above. Time I spent with family or surrogate(s) is included only if the patient was incapable of providing necessary information or participating in decision making. This time includes the following services provided: Telemetry review BiPAP ventilation Hemodynamic interpretation, assessment and management Review and interpretation of CXR Review and interpretation of lab values Review and interpretation of microbiologic data and culture results Review of medications and administration Review and interpretation of Nutrition requirements and management Discussion of management with other consultants and services Clinical update to family members Diagnoses Acute respiratory failure with hypoxia and hypercapnia J96.01; J96.02 Shock R57.9 Metabolic encephalopathy G93.41 Acute hyponatremia E87.1 Hyperammonemia E72.20 Ileus K56.7 Abdominal pain R10.9 Nausea and vomiting R11.2 UTI (urinary tract infection) N39.0 Hyperkalemia E87.5 Hypoxia R09.02 COVID-19 U07.1 Protein-energy malnutrition E46 Physical deconditioning R53.81 Goals of care, counseling/discussion Z71.89
--- NOTE | 2022-12-24 19:58 | PC.PHAR ---
PHARMACY TO DOSE - VANCOMYCIN With the patient's previous doses and troughs during this current stay, we restarted the patient on q24h dosing and will monitor moving forward.
--- NOTE | 2022-12-24 20:04 | PC.NURSE ---
Shift summary: Pt rested in bed throughout the shift. His Oxymask would slide down this am and pt would leave it there, would not even try to push back up. Pt would try to grab the BiPaP mask a couple hours later to pull off. He has been shallow breathing this am. This am he didn't call out for pain meds as is his norm. He can answer the orientation questions appropriately if and when he makes an effort to speak clearly. Mostly He prefers to rest and speak with his mouth hanging wide open. His abd was distended. NG inserted today, 800ml of greenish brown drainage this shift from gastric tube. Pt did have emesis this afternoon while NG to LIS and BiPap on. Bipap stopped at that time. His edema has increased. Today his arms are weeping and his scrotum is edematous. No Bm noted today. He did have 1150ml of dark yellow urine which now has sediment. Family was at bedside today. Meeting with physician on plan of care.
[2022-12-24] MEDS: pantoprazole 40 mg SDV IVP (20:12)
[2022-12-24] MEDS: morphine 4 mg/mL SDV 1 mL 1 MG IVP (20:26)
[2022-12-25] VITALS (53 sets, daily range): BP systolic 84–138; BP diastolic 45–99; PULSE 85–110; RESP 14–29; TEMP 36.6–37.3; O2SAT 79–98; BMI 39.1
[2022-12-25] MEDS: meropenem 1,000 MG in sodium chloride 0.9% (plus) 50 ML 100 MG IV ×3 (01:20→17:23)
[2022-12-25] MEDS: metoclopramide 5 mg/mL SDV 2 mL 10 MG IVP ×4 (01:20→20:24)
[2022-12-25] MEDS: albumin 25 G/100 ML BAG 60 G IV ×3 (01:21→18:20)
[2022-12-25] MEDS: ipratropium 0.5 mg/2.5 mL Neb INHALATION ×4 (02:25→19:52)
[2022-12-25] MEDS: levalbuterol 0.63 mg/3 mL Neb INHALATION ×4 (02:25→19:52)
[2022-12-25 04:34] LABS: Hemoglobin 7.2 g/dL (11.7-16.6); Lymphocytes # 0.2 10^3/uL (0.8-4.8); Lymphocytes % 3.9 %; Mean Corpuscular Hemoglobin 32.7 pg (28.0-34.0); Mean Corpuscular Volume 109.1 fl (80-94); Mean Platelet Volume 11.3 fL (7.4-10.4); Monocytes # 0.2 10^3/uL (0.2-0.9); Monocytes % 3.7 %; Neutrophils # 5.36 10^3/uL (1.8-7.7); Neutrophils % 91.2 %; Nucleated Red Blood Cells % 0 %; Platelet Count 97 10^3/cmm (130-400); White Blood Count 5.9 10^3/uL (4.0-10.0)
[2022-12-25 04:46] LABS: Magnesium 3.3 mg/dL (1.7-2.3)
[2022-12-25 04:47] LABS: Alanine Aminotransferase 28 U/L (0-41); Albumin Level 4.1 g/dL (3.5-5.2); Alkaline Phosphatase 177 U/L (40-130); Anion Gap 9.9 (5-19); Aspartate Amino Transferase 62 U/L (0-40); Blood Urea Nitrogen 19 mg/dL (8-23); Calcium 8.2 mg/dL (8.5-10.5); Carbon Dioxide 31 mmol/L (22-29); Chloride 98 mmol/L (98-107); Creatinine Clr Calc Pharmacy 122.8826; Globulin 1.7 g/dL (1.3-4.6); Glomerular Filtration Rate 114.6 mL/min (90-130); Glucose 90 mg/dL (65-115); Osmolality Calculated 280 mOsm/kg (285-295); Potassium 4.9 mmol/L (3.5-5.1); Sodium 134 mmol/L (136-145); Total Bilirubin 0.5 mg/dL (0.15-1.2); Total Protein 5.8 g/dL (6.6-8.7)
[2022-12-25] MEDS: lactulose oral liq 20 gm/30 mL UDC 30 GM PO (06:11)
[2022-12-25] MEDS: FUROsemide 10 mg/mL SDV 2mL 20 MG IVP (07:28)
[2022-12-25 08:38] LABS: ABG PH Result 7.23 (7.35-7.45); Alveolar-Arterial Oxygen Gradi 0.4 mmHg (5-10); Arterial Blood Gas Hematocrit 15.6 % (42-52); Base Excess ABG 4.7 mmol/L (-2.0-2.0); Blood Gas Allen Test Pos; Blood Gas Operator Identificat CAAK; Blood Gas Sample Site Radial, left; Blood Gas Sample Type Arterial; HCO3 ABG 32.4 mmol/L (22-26); HGB O2 Sat 84.8 % (95-100); Ionized Calcium Level - ABG 1.2 mmol/L (1.1-1.4); Methemoglobin 2.2 % (0.4-1.5); Oxygen Device NRB; Oxygen Saturation ABG 87.5; PO2 ABG 53.7 mmHg (80.0-100.0); Potassium Level - ABG 4.9 mmol/L (3.5-5.0); Total Hemoglobin 5.1 g/dL (14-18)
[2022-12-25 08:39] LABS: ABG PCO2 77.4 mmHg (35-45)
[2022-12-25] MEDS: FUROsemide 10 mg/mL SDV 4mL 40 MG IVP ×2 (08:47→20:23)
[2022-12-25] MEDS: heparin 5,000 unit/mL INJ 1 mL 5000 UNIT SUBCUT ×2 (08:47→20:24)
[2022-12-25] MEDS: docusate sodium 100 mg Capsule PO (08:48)
[2022-12-25] MEDS: lactulose oral liq 20 gm/30 mL UDC 200 GM PR ×2 (09:45→15:07)
[2022-12-25] MEDS: dexamethasone 10 mg/mL INJ 6 MG IVP (10:53)
--- NOTE | 2022-12-25 13:11 | PM.PN ---
Subjective Subjective: Patient had decent stool output after lactulose enema. He is very lethargic Vitals/I&O/Wt Last Vital Signs Temp 97.9 F 12/25/22 12:00 Pulse 100 12/25/22 12:00 Resp 26 H 12/25/22 12:00 BP 125/99 12/25/22 12:00 Pulse Ox 93 12/25/22 12:00 O2 Del Method BiPAP 12/25/22 12:00 O2 Flow Rate 60 12/25/22 08:02 FiO2 60 12/25/22 11:11 12/24/22 12/25/22 12/25/22 22:59 06:59 14:59 Intake Total 802 / 952 150 / 1102 150 / 150 Output Total 2525 / 2525 330 / 2855 1350 / 1350 Balance -1723 / -1573 -180 / -1753 -1200 / -1200 Weight last 48 hrs Weight 228 lb Weight 236 lb 5 oz Physical Exam Narrative: General: No acute distress, lethargic Abdomen soft, distended but improved, nontender, no guarding rebound or masses Urinary Catheter Management: Nuñez: Cath Placed During This Visit: yes Reason for Continuing Indwelling Catheter: Accurate Measurement of Urinary Output in Critically Ill Patients Urinary Catheter Date of Insertion: 12/21/22 Data 12/25/22 03:25 12/25/22 03:25 Micro: Microbiology 12/21/22 20:41 Gram Stain - Final Sputum - Expectorated Sputum Sputum Culture - Preliminary Escherichia coli esbl Coag positive Staphylococcus A&P Assessment and plan (1) Nausea: (2) Ileus: Plan N.p.o. except meds Lactulose Reglan 10 mg IV every 6 No acute surgical intervention Medical management per hospitalist Attestations Medical Necessity Statement*: Per primary Coding Level of Care Code Acute Code for [facility] Fwd Diagnoses Nausea R11.0 Ileus K56.7
[2022-12-25] MEDS: morphine 4 mg/mL SDV 1 mL 1 MG IVP (15:03)
--- NOTE | 2022-12-25 16:53 | PM.PN ---
Subjective Subjective: Seen multiple times in the day. Family at bedside. Maintains off Levophed. Overnight no acute events. Today morning on examination patient was again lethargic saturations dropping down to low 80s. He was placed on BiPAP and ABG was done which showed hypercapnic respiratory failure. Patient continues to remain lethargic. Only 1 bowel movement yesterday. Around 1 L and gastric drainage through NG tube. Urine output in last 24 hours around 2800. Vitals/I&O/Wt Last Vital Signs Temp 99.1 F 12/25/22 16:41 Pulse 106 H 12/25/22 16:43 Resp 16 12/25/22 16:41 BP 133/78 12/25/22 16:41 Pulse Ox 95 12/25/22 16:41 O2 Del Method BiPAP 12/25/22 15:30 O2 Flow Rate 60 12/25/22 08:02 FiO2 60 12/25/22 13:57 12/25/22 12/25/22 12/25/22 06:59 14:59 22:59 Intake Total 150 / 1102 150 / 150 0 / 150 Output Total 330 / 2855 1350 / 1350 800 / 2150 Balance -180 / -1753 -1200 / -1200 -800 / -2000 Weight last 48 hrs Weight 103.419 kg Weight 107.19 kg Physical Exam Narrative: General: Mild acute distress abdominal pain, lethargic, sick appearing, on BiPAP HEENT: PERRLA, pupils bilaterally equal and reactive Chest: Normal vesicular breath sounds, no added sounds, equal good air entry bilaterally CVS: S1-S2 regular, no murmurs, no tachycardia, no gallops, no rubs Abdomen: Soft, less distended, generalized tenderness, no organomegaly, sluggish bowel sounds present Neuro: No focal deficits, no facial deformity, Urinary Catheter Management: Nuñez: Cath Placed During This Visit: yes Reason for Continuing Indwelling Catheter: Accurate Measurement of Urinary Output in Critically Ill Patients Urinary Catheter Date of Insertion: 12/21/22 Data 12/25/22 03:25 12/25/22 03:25 Micro: Microbiology 12/21/22 20:41 Gram Stain - Final Sputum - Expectorated Sputum Sputum Culture - Preliminary Escherichia coli esbl Coag positive Staphylococcus A&P Assessment and plan (1) Acute respiratory failure with hypoxia and hypercapnia: (2) Shock: (3) Metabolic encephalopathy: (4) Acute hyponatremia: (5) Hyperammonemia: (6) Ileus: (7) Abdominal pain: (8) Nausea and vomiting: (9) UTI (urinary tract infection): (10) Hyperkalemia: (11) Hypoxia: (12) COVID-19: (13) Protein-energy malnutrition: (14) Physical deconditioning: (15) Goals of care, counseling/discussion: Plan 62-year-old with past medical history of CAD, severe depression with history of suicidal ideation, chronic back pain with most recent history of small bowel obstruction requiring ex lap, ESBL E. coli UTI and pneumonia, hypertension who presented from the long term with concerns for abdominal pain, nausea and vomiting and found to be slightly more hypoxic than baseline and hypotensive not responsive to fluid challenges. Shock: Septic shock. Ruled in. Present on admission. Target organ dysfunction of renal disorder with hyperkalemia and hyponatremia along with poor mentation from metabolic encephalopathy. Keep mean artery pressure 65. Follow-up culture results. Urine culture growing E. coli. Sputum culture growing ESBL E. coli with coag positive staph. Continue with IV albumin. IV Lasix 40 mg one-time. Will repeat in evening depending on urine output. Continue with IV meropenem. Added vancomycin given staph in sputum. Will de-escalate as per culture sensitivities. Nuñez catheterization. Strict input output charting. Metabolic encephalopathy: Most likely in setting of hyperammonia levels, hypercapnic respiratory failure, septic shock, hyponatremia. Cannot rule out secondary to severe protein energy malnutrition and deconditioning. Hyperammonemia: Hold off on lactulose through NG tube. Start on rectal lactulose. Target 2-3 good bowel movements in 24 hours. Repeat ammonia levels in a.m. Hypoxic and hypercapnic respiratory failure: Most likely in setting of metabolic encephalopathy along with pneumonia. COVID-19 positive for more than 10 days. No need for isolation. Dexamethasone 6 mg IV daily. Aggressive pulmonary toilet. Start on chest vest today. BiPAP ventilation keeping saturation over 90%. Repeat ABG in AM. Antibiotic as above. Oxygen supplementation keeping saturation over 90%. Ipratropium, Xopenex every 6 hours, budesonide twice daily for now. Out of bed to chair when possible. Hyponatremia: Baseline sodium seems to be around more than 140. Improved to 134 today. Mixed etiology. Could be secondary to hypovolemia the patient is third spacing given hypoalbuminemia. Continue with IV Lasix. Repeat BMP every 12 hours. Hypermagnesemia: Most likely in setting of milk of magnesia along with no bowel movements. Hold off on any further milk of magnesia. Monitor magnesium levels daily. Hyperkalemia: Resolved. Ileus: Nausea and vomiting/abdominal pain: Patient has a history of small bowel obstruction post ex lap. Appreciate surgical recommendations. Continue with the lactulose as above. Maintain NG tube. Monitor electrolytes. N.p.o. for now. Anemia: No active signs of bleeding. Hemoglobin down to 7.2. Most likely in setting of malnutrition. Transfuse 1 unit of PRBC. Repeat CBC in AM. IV Protonix 40 mg twice daily for now. UTI: As above. A-fib: Rate controlled currently. Hold off on Coreg for now. On last discharge it seems Eliquis was stopped given borderline anemia at the time. For now we will continue to hold. Will discuss in detail with the patient prior to discharge and restart if needed. Telemetry. Having episodes of nonsustained V. tach. Replete 1 g of IV magnesium. Severe physical deconditioning Protein energy malnutrition. Goals of care discussion: Had extensive goals of care discussion at bedside with family including patient's DPOA and son. We discussed that patient's has severe physical deconditioning, malnutrition which has been ongoing for many months. On confirming with long term patient is not doing much even with physical therapy at long term. Over hospital as well patient continues to show severe poor motivation. We discussed that unfortunately this all makes patient at a higher risk of more infections, worsening respiratory status and is also the reason for him developing ileus. We discussed currently patient has been severe sepsis and metabolic encephalopathy. As per family they had discussed about this in detail and they will want patient to have better quality of life than quantity of life and they agree if patient does not improve within next 24 to 48 hours they would like to go ahead with hospice. Plan to continue with current treatment for now. Plan to discharge back to long term with hospice once medically stable. CODE STATUS: Discussed in detail with the patient. He confirms with recent changes CODE STATUS to DNI/DNR on last admission. Is agreeable for ICU admission and vasopressors if needed. His Ms. Sanchez will be the DPOA. N.p.o. Protonix OPD prophylaxis Heparin for DVT prophylaxis. Continue care at ICU. Patient is critically sick Attestations Medical Necessity Statement*: Requires further hospitalization for management of metabolic encephalopathy in setting of hyponatremia, hyperammonemia, hypercapnic respiratory failure, ileus, UTI and ESBL pneumonia Coding Level of Care Code Critical Care >/= 30 minutes Critical care time (in minutes): 70 The high probability of a clinically significant, sudden or life threatening deterioration, as referenced in this documentation, required my full and direct attention, intervention and personal management. The critical care time shown is in addition to time spent performing any reported separately billable procedures and includes the following: [x] Data and vital sign review and interpretation [x] Patient assessment, examination and intervention [x] Medication orders and management [x] Patient/Family updates as able [x] Care Coordination and Documentation. Diagnoses Acute respiratory failure with hypoxia and hypercapnia J96.01; J96.02 Shock R57.9 Metabolic encephalopathy G93.41 Acute hyponatremia E87.1 Hyperammonemia E72.20 Ileus K56.7 Abdominal pain R10.9 Nausea and vomiting R11.2 UTI (urinary tract infection) N39.0 Hyperkalemia E87.5 Hypoxia R09.02 COVID-19 U07.1 Protein-energy malnutrition E46 Physical deconditioning R53.81 Goals of care, counseling/discussion Z71.89
[2022-12-25] MEDS: pantoprazole 40 mg SDV IVP (17:23)
[2022-12-25 17:41] LABS: ABG PCO2 55.7 mmHg (35-45); ABG PH Result 7.35 (7.35-7.45); Alveolar-Arterial Oxygen Gradi 22.9 mmHg (5-10); Arterial Blood Gas Hematocrit 25.6 % (42-52); Base Excess ABG 4.1 mmol/L (-2.0-2.0); Blood Gas Allen Test Pos; Blood Gas Operator Identificat CAK; Blood Gas Sample Site Radial, left; Blood Gas Sample Type Arterial; Carboxyhemoglobin 1.1 %THgb (0.4-20.1); HCO3 ABG 30.5 mmol/L (22-26); HGB O2 Sat 77.4 % (95-100); Ionized Calcium Level - ABG 1.2 mmol/L (1.1-1.4); Methemoglobin 1.8 % (0.4-1.5); Oxygen Device BIPAP; Oxygen Saturation ABG 79.6; PO2 ABG 41.4 mmHg (80.0-100.0); Potassium Level - ABG 3.8 mmol/L (3.5-5.0); Total Hemoglobin 8.4 g/dL (14-18)
[2022-12-25] MEDS: vancomycin 1,500 MG/300 ML PIGGYBACK 200 MG IV (18:19)
--- NOTE | 2022-12-25 19:52 | PC.NURSE ---
Day shift reported to hold lactulose tonight per Dr. Davison verbal order and to check potassium tonight.
[2022-12-25 20:47] LABS: Hematocrit 26.4 % (42.0-52.0); Hemoglobin 8.3 g/dL (11.7-16.6); Lymphocytes # 0.2 10^3/uL (0.8-4.8); Lymphocytes % 3.9 %; Mean Corpuscular HGB Conc 31.4 g/dL (30.0-36.0); Mean Corpuscular Hemoglobin 32.5 pg (28.0-34.0); Mean Corpuscular Volume 103.5 fl (80-94); Mean Platelet Volume 10.8 fL (7.4-10.4); Monocytes # 0.1 10^3/uL (0.2-0.9); Monocytes % 2.3 %; Neutrophils # 4.82 10^3/uL (1.8-7.7); Neutrophils % 93.4 %; Nucleated Red Blood Cells % 0 %; Platelet Count 83 10^3/cmm (130-400); Red Blood Count 2.55 10^6/uL (4.1-5.3); Red Cell Distribution Width 15.9 % (12.1-15.1); White Blood Count 5.2 10^3/uL (4.0-10.0)
[2022-12-25 21:07] LABS: Alanine Aminotransferase 24 U/L (0-41); Albumin Level 4.2 g/dL (3.5-5.2); Alkaline Phosphatase 140 U/L (40-130); Anion Gap 13.9 (5-19); Aspartate Amino Transferase 51 U/L (0-40); Blood Urea Nitrogen 20 mg/dL (8-23); Calcium 7.7 mg/dL (8.5-10.5); Carbon Dioxide 27 mmol/L (22-29); Chloride 102 mmol/L (98-107); Globulin 1.5 g/dL (1.3-4.6); Glucose 92 mg/dL (65-115); Osmolality Calculated 290 mOsm/kg (285-295); Potassium 3.9 mmol/L (3.5-5.1); Sodium 139 mmol/L (136-145); Total Bilirubin 1.2 mg/dL (0.15-1.2); Total Protein 5.7 g/dL (6.6-8.7)
[2022-12-26] VITALS (32 sets, daily range): BP systolic 120–153; BP diastolic 72–112; PULSE 102–121; RESP 15–30; TEMP 36.5–37.7; O2SAT 85–100; BMI 37.0
[2022-12-26] MEDS: meropenem 1,000 MG in sodium chloride 0.9% (plus) 50 ML 100 MG IV ×3 (01:30→17:28)
[2022-12-26] MEDS: metoclopramide 5 mg/mL SDV 2 mL 10 MG IVP ×4 (01:31→20:23)
[2022-12-26] MEDS: ipratropium 0.5 mg/2.5 mL Neb INHALATION ×4 (02:01→19:40)
[2022-12-26] MEDS: levalbuterol 0.63 mg/3 mL Neb INHALATION ×4 (02:01→19:39)
[2022-12-26 04:25] LABS: Hemoglobin 8.8 g/dL (11.7-16.6); Lymphocytes # 0.3 10^3/uL (0.8-4.8); Lymphocytes % 4.7 %; Mean Corpuscular HGB Conc 32.6 g/dL (30.0-36.0); Mean Corpuscular Hemoglobin 32.8 pg (28.0-34.0); Mean Corpuscular Volume 100.7 fl (80-94); Monocytes # 0.2 10^3/uL (0.2-0.9); Monocytes % 3.3 %; Neutrophils # 5.04 10^3/uL (1.8-7.7); Neutrophils % 91.5 %; Nucleated Red Blood Cells % 0 %; Platelet Count 95 10^3/cmm (130-400); Red Blood Count 2.68 10^6/uL (4.1-5.3); Red Cell Distribution Width 16.1 % (12.1-15.1); White Blood Count 5.5 10^3/uL (4.0-10.0)
[2022-12-26 04:40] LABS: Alanine Aminotransferase 23 U/L (0-41); Albumin Level 3.9 g/dL (3.5-5.2); Alkaline Phosphatase 144 U/L (40-130); Ammonia 106 umol/L (16-60); Anion Gap 11.1 (5-19); Aspartate Amino Transferase 52 U/L (0-40); Blood Urea Nitrogen 20 mg/dL (8-23); Calcium 8.3 mg/dL (8.5-10.5); Carbon Dioxide 29 mmol/L (22-29); Chloride 101 mmol/L (98-107); Globulin 1.8 g/dL (1.3-4.6); Glucose 100 mg/dL (65-115); Osmolality Calculated 289 mOsm/kg (285-295); Potassium 3.1 mmol/L (3.5-5.1); Sodium 138 mmol/L (136-145); Total Bilirubin 1.2 mg/dL (0.15-1.2); Total Protein 5.7 g/dL (6.6-8.7)
[2022-12-26] MEDS: pantoprazole 40 mg SDV IVP ×2 (05:30→17:27)
[2022-12-26] MEDS: FUROsemide 10 mg/mL SDV 4mL 40 MG IVP (08:19)
[2022-12-26] MEDS: sodium chloride 0.9% 1,000 ML 50 ML IV (08:29)
[2022-12-26] MEDS: lidocaine 1% 5 ML in potassium chloride premix 100 ML 26.25 ML IV (08:29)
[2022-12-26] MEDS: lactulose oral liq 20 gm/30 mL UDC 200 GM PR ×3 (08:39→20:24)
--- NOTE | 2022-12-26 09:39 | PM.PN ---
Subjective Subjective: Patient had multiple bowel movements with the lactulose enemas. NG tube now with minimal output Vitals/I&O/Wt Last Vital Signs Temp 99.9 F H 12/26/22 04:00 Pulse 112 H 12/26/22 07:56 Resp 19 H 12/26/22 07:55 BP 143/89 12/26/22 05:00 Pulse Ox 98 12/26/22 07:56 O2 Del Method BiPAP 12/26/22 07:55 O2 Flow Rate 60 12/25/22 08:02 FiO2 40 12/26/22 08:00 12/25/22 12/26/22 12/26/22 22:59 06:59 14:59 Intake Total 800 / 950 50 / 1000 Output Total 4060 / 5410 450 / 5860 Balance -3260 / -4460 -400 / -4860 Weight last 48 hrs Weight 215 lb 9 oz Weight 228 lb Physical Exam Narrative: General: No acute distress, lethargic Abdomen soft, nondistended, nontender, no guarding rebound or masses Urinary Catheter Management: Nuñez: Cath Placed During This Visit: yes Reason for Continuing Indwelling Catheter: Accurate Measurement of Urinary Output in Critically Ill Patients Urinary Catheter Date of Insertion: 12/21/22 Data 12/26/22 04:11 12/26/22 04:11 Micro: Microbiology 12/21/22 20:41 Gram Stain - Final Sputum - Expectorated Sputum Sputum Culture - Final Escherichia coli esbl Methicillin Resis Staph Aureus A&P Assessment and plan (1) Nausea: (2) Ileus: Plan Begin tube feeding per order Reglan 10 mg IV every 6 No acute surgical intervention Medical management per hospitalist Attestations Medical Necessity Statement*: Per primary Coding Level of Care Code Acute Code for Chg Fwd Diagnoses Nausea R11.0 Ileus K56.7
[2022-12-26] MEDS: dexamethasone 10 mg/mL INJ 6 MG IVP (09:56)
[2022-12-26] MEDS: sodium chloride 0.9% 500 ML 999 ML IV ×2 (10:48→17:32)
[2022-12-26] MEDS: metoprolol tartrate 1 mg/1 mL SDV 5 mL 5 MG IVP ×3 (10:48→21:19)
[2022-12-26] MEDS: morphine 4 mg/mL SDV 1 mL 1 MG IVP (11:00)
--- NOTE | 2022-12-26 11:05 | PC.NUTR ---
TF consult received. Recommend consideration of Osmolite 1.2 beginning @ 10 mls/hr, increasing 10 mls Q8H as tolerated until goal rate of 40 mls/hr is reached, with 100 mls flushes Q6H or per MD discretion. Details in RD assessment.
[2022-12-26] MEDS: lidocaine 1% 5 ML in potassium chloride premix 100 ML 25 ML IV (12:35)
--- NOTE | 2022-12-26 13:52 | PC.SOCIAL ---
Imm update Imm updated with patient's . Copy of page 2 explained. Copy left at bedside. verbalized understanding. Copy in chart initialed, dated and timed.
[2022-12-26 16:23] LABS: Potassium 3.9 mmol/L (3.5-5.1)
--- NOTE | 2022-12-26 17:10 | PM.PN ---
Subjective Subjective: No acute events overnight. Patient has remained hemodynamically stable and afebrile. He continues to remain on dependent on AVAPS. Currently on 50% FiO2. On turning down to 40% on turning down from AVAPS to BiPAP he got tired around 4 to 5 hours today for which he was turned back to AVAPS mode. Grunting more today. Not waking up to have conversation. Multiple bowel movements yesterday after lactulose. Patient continues to remain Overall output 5.8 L including urine, BM and NG tube drainage. Only 60 NG tube drainage. Today patient's heart rate is running up to 110s. Appears sinus to atrial tachycardia on environmental monitoring specialist. Vitals/I&O/Wt Last Vital Signs Temp 97.7 F 12/26/22 12:00 Pulse 115 H 12/26/22 16:00 Resp 27 H 12/26/22 16:00 BP 130/101 12/26/22 16:00 Pulse Ox 95 12/26/22 16:00 O2 Del Method BiPAP 12/26/22 14:00 O2 Flow Rate 60 12/25/22 08:02 FiO2 40 12/26/22 16:00 12/26/22 12/26/22 12/26/22 06:59 14:59 22:59 Intake Total 50 / 1000 655 / 655 105 / 760 Output Total 450 / 5860 800 / 800 Balance -400 / -4860 -145 / -145 105 / -40 Weight last 48 hrs Weight 97.778 kg Weight 103.419 kg Physical Exam Narrative: General: Mild acute distress abdominal pain, lethargic, sick appearing, on BiPAP HEENT: PERRLA, pupils bilaterally equal and reactive Chest: Normal vesicular breath sounds, no added sounds, equal good air entry bilaterally CVS: S1-S2 regular, no murmurs, no tachycardia, no gallops, no rubs Abdomen: Soft, less distended, generalized tenderness, no organomegaly, sluggish bowel sounds present Neuro: No focal deficits, no facial deformity, Urinary Catheter Management: Nuñez: Cath Placed During This Visit: yes Reason for Continuing Indwelling Catheter: Accurate Measurement of Urinary Output in Critically Ill Patients Urinary Catheter Date of Insertion: 12/21/22 Data 12/26/22 04:11 12/26/22 15:49 Micro: Microbiology 12/21/22 13:43 Blood Culture - Final Blood NO GROWTH AFTER 5 DAYS 12/21/22 13:30 Blood Culture - Final Blood NO GROWTH AFTER 5 DAYS 12/21/22 20:41 Gram Stain - Final Sputum - Expectorated Sputum Sputum Culture - Final Escherichia coli esbl Methicillin Resis Staph Aureus A&P Assessment and plan (1) Acute respiratory failure with hypoxia and hypercapnia: (2) Shock: (3) Metabolic encephalopathy: (4) Acute hyponatremia: (5) Hyperammonemia: (6) Ileus: (7) Abdominal pain: (8) Nausea and vomiting: (9) UTI (urinary tract infection): (10) Hyperkalemia: (11) Hypoxia: (12) COVID-19: (13) Protein-energy malnutrition: (14) Physical deconditioning: (15) Goals of care, counseling/discussion: Plan 62-year-old with past medical history of CAD, severe depression with history of suicidal ideation, chronic back pain with most recent history of small bowel obstruction requiring ex lap, ESBL E. coli UTI and pneumonia, hypertension who presented from the longterm with concerns for abdominal pain, nausea and vomiting and found to be slightly more hypoxic than baseline and hypotensive not responsive to fluid challenges. Shock: Septic shock. Ruled in. Present on admission. Target organ dysfunction of renal disorder with hyperkalemia and hyponatremia along with poor mentation from metabolic encephalopathy. Keep mean artery pressure 65. Follow-up culture results. Urine culture growing E. coli. Sputum culture growing ESBL E. coli and MRSA. Continue with IV albumin. IV Lasix 40 mg one-time. Will repeat in evening depending on urine output. Continue with IV meropenem and vancomycin Nuñez catheterization. Strict input output charting. Metabolic encephalopathy: Most likely in setting of hyperammonia levels, hypercapnic respiratory failure, septic shock, hyponatremia. Cannot rule out secondary to severe protein energy malnutrition and deconditioning. Hyperammonemia: Hold off on lactulose through NG tube. Start on rectal lactulose. Target 2-3 good bowel movements in 24 hours. Repeat ammonia levels in a.m. Hypoxic and hypercapnic respiratory failure: Most likely in setting of metabolic encephalopathy along with pneumonia. COVID-19 positive for more than 10 days. No need for isolation. Dexamethasone 6 mg IV daily. Aggressive pulmonary toilet. Start on chest vest today. BiPAP ventilation keeping saturation over 90%. Repeat ABG in AM. Antibiotic as above. Oxygen supplementation keeping saturation over 90%. Ipratropium, Xopenex every 6 hours, budesonide twice daily for now. Out of bed to chair when possible. Hyponatremia: Baseline sodium seems to be around more than 140. Improved to 134 today. Mixed etiology. Could be secondary to hypovolemia the patient is third spacing given hypoalbuminemia. Continue with IV Lasix. Repeat BMP every 12 hours. Hypermagnesemia: Most likely in setting of milk of magnesia along with no bowel movements. Hold off on any further milk of magnesia. Monitor magnesium levels daily. Hyperkalemia: Resolved. Ileus: Nausea and vomiting/abdominal pain: Patient has a history of small bowel obstruction post ex lap. Appreciate surgical recommendations. Continue with the lactulose as above. Maintain NG tube. Monitor electrolytes. N.p.o. for now. Anemia: No active signs of bleeding. Hemoglobin down to 7.2. Most likely in setting of malnutrition. Transfuse 1 unit of PRBC. Repeat CBC in AM. IV Protonix 40 mg twice daily for now. UTI: As above. A-fib: Rate controlled currently. Hold off on Coreg for now. On last discharge it seems Eliquis was stopped given borderline anemia at the time. For now we will continue to hold. Will discuss in detail with the patient prior to discharge and restart if needed. Telemetry. Having episodes of nonsustained V. tach. Replete 1 g of IV magnesium. Severe physical deconditioning Protein energy malnutrition. Goals of care discussion: Had extensive goals of care discussion at bedside with family including patient's DPOA and son. We discussed that patient's has severe physical deconditioning, malnutrition which has been ongoing for many months. On confirming with longterm patient is not doing much even with physical therapy at longterm. Over hospital as well patient continues to show severe poor motivation. We discussed that unfortunately this all makes patient at a higher risk of more infections, worsening respiratory status and is also the reason for him developing ileus. We discussed currently patient has been severe sepsis and metabolic encephalopathy. As per family they had discussed about this in detail and they will want patient to have better quality of life than quantity of life and they agree if patient does not improve within next 24 to 48 hours they would like to go ahead with hospice. Plan to continue with current treatment for now. Plan to discharge back to longterm with hospice once medically stable. Plan for the day: Continue with IV vancomycin and meropenem for ESBL E. coli and MRSA pneumonia. Continue with BiPAP ventilation. Repeat ABG. Continue with lactulose enema. Repeat ammonia levels in AM. Add rifaximin 550 mg twice daily. Start on tube feeds with Glucerna at 10 cc/h, going up 10 cc every 6 hours with goal of 40 for now. Dietitian consult. Free water flush 100 cc every 4 hours. 500 cc IV bolus with normal saline. Start on 75 cc/h. Repeat potassium in evening. Replete 80 mg. Continue with IV dexamethasone. Start on 5 mg IV Lopressor every 4 hours as needed for heart rate of more than 110 to be held for systolic blood pressure of less than 110 mmHg. Check EKG. If patient does not improve in next 24 to 48 hours can plan to initiate hospice after confirming with family. CODE STATUS: Discussed in detail with the patient. He confirms with recent changes CODE STATUS to DNI/DNR on last admission. Is agreeable for ICU admission and vasopressors if needed. His Ms. Sanchez will be the DPOA. N.p.o. Protonix OPD prophylaxis Heparin for DVT prophylaxis. Continue care at ICU. Patient is critically sick Attestations Medical Necessity Statement*: Requires further hospitalization for management of metabolic encephalopathy in setting of MRSA and ESBL pneumonia, elevated ammonia levels, ileus as patient remains BiPAP dependent. Coding Level of Care Code Critical Care >/= 30 minutes Critical care time (in minutes): 70 The high probability of a clinically significant, sudden or life threatening deterioration, as referenced in this documentation, required my full and direct attention, intervention and personal management. The critical care time shown is in addition to time spent performing any reported separately billable procedures and includes the following: [x] Data and vital sign review and interpretation [x] Patient assessment, examination and intervention [x] Medication orders and management [x] Patient/Family updates as able [x] Care Coordination and Documentation. Other Coding Information This patient has a high probability of clinically significant, sudden or life threatening deterioration of the patient's (neurological/pulmonary/cardiac/renal/ID/endocrine) systems required my full, direct attention, the highest level of physician preparedness for urgent intervention and personal management. I managed/supervised life or organ supporting interventions that required frequent physician assessment. I devoted my full attention in the ICU to the direct care of this patient for the period of time indicated above. Time I spent with family or surrogate(s) is included only if the patient was incapable of providing necessary information or participating in decision making. This time includes the following services provided: Telemetry review AVAPS ventilation Hemodynamic interpretation, assessment and management Review and interpretation of CXR Review and interpretation of lab values Review and interpretation of microbiologic data and culture results Review of medications and administration Review and interpretation of Nutrition requirements and management Discussion of management with other consultants and services Clinical update to family members Diagnoses Acute respiratory failure with hypoxia and hypercapnia J96.01; J96.02 Shock R57.9 Metabolic encephalopathy G93.41 Acute hyponatremia E87.1 Hyperammonemia E72.20 Ileus K56.7 Abdominal pain R10.9 Nausea and vomiting R11.2 UTI (urinary tract infection) N39.0 Hyperkalemia E87.5 Hypoxia R09.02 COVID-19 U07.1 Protein-energy malnutrition E46 Physical deconditioning R53.81 Goals of care, counseling/discussion Z71.89
--- NOTE | 2022-12-26 17:44 | PC.NURSE ---
Tube feed started per Dr. Davison telephone order, read back. See message to nurse for rate and goal. NG tube auscultated for placement conformation and Glucerna 1.2 marilu started at rate of 10ml/hr with 100ml water flush Q4 as ordered. Will monitor patient for tolerance throughout shift.
[2022-12-26] MEDS: vancomycin 1,500 MG/300 ML PIGGYBACK 200 MG IV (18:09)
--- NOTE | 2022-12-26 18:24 | ECG_ITS ---
[facility] Test Date: 2022-12-26 Pat Name: Jeremie Alexander Department: Room: ICU10 Gender: Male Home Maker: : 1960 Requested By: Lane Davison Order Number: [id number] Lucinda MD: Jose Ugarte M.D. Measurements Intervals [place] Rate: 111 P: 38 OH: 150 QRS: 2 QRSD: 109 T: 27 QT: 314 QTc: 428 Interpretive Statements SINUS TACHYCARDIA LOW QRS VOLTAGE [QRS DEFLECTION < 0.5/1.0 mV IN LIMB/CHEST LEADS] MINIMAL ST DEPRESSION [0.025+ mV ST DEPRESSION] Compared to ECG 12/21/2022 11:18:12 ST (T wave) deviation now present Sinus rhythm no longer present Electronically Signed On 12-26-2022 20:24:51 CDT by Jose Ugarte M.D. [id number]
[2022-12-27] VITALS (36 sets, daily range): BP systolic 107–150; BP diastolic 51–99; PULSE 103–120; RESP 20–38; TEMP 36.5–37.8; O2SAT 86–97
[2022-12-27] MEDS: meropenem 1,000 MG in sodium chloride 0.9% (plus) 50 ML 100 MG IV ×3 (02:40→17:22)
[2022-12-27] MEDS: metoclopramide 5 mg/mL SDV 2 mL 10 MG IVP ×4 (02:41→20:40)
[2022-12-27] MEDS: levalbuterol 0.63 mg/3 mL Neb INHALATION ×4 (03:21→19:48)
[2022-12-27] MEDS: ipratropium 0.5 mg/2.5 mL Neb INHALATION ×4 (03:21→19:48)
[2022-12-27 03:35] LABS: ABG PCO2 46.2 mmHg (35-45); ABG PH Result 7.41 (7.35-7.45); Alveolar-Arterial Oxygen Gradi 22.7 mmHg (5-10); Arterial Blood Gas Hematocrit 29.5 % (42-52); Base Excess ABG 3.8 mmol/L (-2.0-2.0); Blood Gas Allen Test Pos; Blood Gas Sample Site Radial, left; Blood Gas Sample Type Arterial; Carboxyhemoglobin 1.5 %THgb (0.4-20.1); HCO3 ABG 29.1 mmol/L (22-26); HGB O2 Sat 87.8 % (95-100); Ionized Calcium Level - ABG 1.2 mmol/L (1.1-1.4); Methemoglobin 1.6 % (0.4-1.5); Oxygen Device BIPAP; Oxygen Saturation ABG 90.6; PO2 ABG 55.9 mmHg (80.0-100.0); Potassium Level - ABG 3.6 mmol/L (3.5-5.0); Total Hemoglobin 9.6 g/dL (14-18)
[2022-12-27 03:52] LABS: Hematocrit 27.6 % (42.0-52.0); Hemoglobin 9.1 g/dL (11.7-16.6); Lymphocytes # 0.4 10^3/uL (0.8-4.8); Lymphocytes % 4.4 %; Mean Corpuscular Hemoglobin 32.4 pg (28.0-34.0); Mean Corpuscular Volume 98.2 fl (80-94); Mean Platelet Volume 11.7 fL (7.4-10.4); Monocytes # 0.2 10^3/uL (0.2-0.9); Monocytes % 2.2 %; Neutrophils # 8.25 10^3/uL (1.8-7.7); Neutrophils % 92.8 %; Nucleated Red Blood Cells % 0 %; Platelet Count 125 10^3/cmm (130-400); Red Blood Count 2.81 10^6/uL (4.1-5.3); Red Cell Distribution Width 16.4 % (12.1-15.1); White Blood Count 8.9 10^3/uL (4.0-10.0)
[2022-12-27] MEDS: lactulose oral liq 20 gm/30 mL UDC 200 GM PR ×2 (04:22→09:00)
[2022-12-27] MEDS: metoprolol tartrate 1 mg/1 mL SDV 5 mL 5 MG IVP ×4 (04:23→20:40)
[2022-12-27] MEDS: pantoprazole 40 mg SDV IVP ×2 (04:23→15:57)
[2022-12-27] MEDS: sodium chloride 0.9% 1,000 ML 50 ML IV (04:25)
[2022-12-27 04:34] LABS: Alanine Aminotransferase 18 U/L (0-41); Albumin Level 3.6 g/dL (3.5-5.2); Alkaline Phosphatase 137 U/L (40-130); Anion Gap 11.6 (5-19); Aspartate Amino Transferase 43 U/L (0-40); Blood Urea Nitrogen 22 mg/dL (8-23); Calcium 8.3 mg/dL (8.5-10.5); Carbon Dioxide 27 mmol/L (22-29); Chloride 109 mmol/L (98-107); Glucose 133 mg/dL (65-115); Magnesium 2.9 mg/dL (1.7-2.3); Osmolality Calculated 303 mOsm/kg (285-295); Potassium 3.6 mmol/L (3.5-5.1); Sodium 144 mmol/L (136-145); Total Bilirubin 1.5 mg/dL (0.15-1.2); Total Protein 5.6 g/dL (6.6-8.7)
[2022-12-27 04:35] LABS: Ammonia 82 umol/L (16-60)
[2022-12-27] MEDS: dexamethasone 10 mg/mL INJ 6 MG IVP (10:38)
--- NOTE | 2022-12-27 11:09 | PM.PN ---
Subjective Subjective: OurPatient had multiple bowel movements with the lactulose enemas. Tolerating tube feeding with Glucerna at 20 MLS per hour Vitals/I&O/Wt Last Vital Signs Temp 97.9 F 12/27/22 07:51 Pulse 108 H 12/27/22 08:28 Resp 25 H 12/27/22 08:20 BP 124/76 12/27/22 06:00 Pulse Ox 95 12/27/22 08:20 O2 Del Method BiPAP 12/27/22 08:20 O2 Flow Rate 40 12/27/22 08:20 FiO2 40 12/27/22 08:00 12/26/22 12/27/22 12/27/22 22:59 06:59 14:59 Intake Total 1265 / 1920 1277.667 / 3197.667 50 / 50 Output Total 1530 / 2330 900 / 3230 375 / 375 Balance -265 / -410 377.667 / -32.333 -325 / -325 Weight last 48 hrs Weight 214 lb 12.8 oz Weight 215 lb 9 oz Physical Exam Narrative: General: No acute distress, lethargic Abdomen soft, nondistended, nontender, no guarding rebound or masses Urinary Catheter Management: Nuñez: Cath Placed During This Visit: yes Reason for Continuing Indwelling Catheter: Accurate Measurement of Urinary Output in Critically Ill Patients Urinary Catheter Date of Insertion: 12/21/22 Data 12/27/22 03:11 12/27/22 03:11 Micro: Microbiology 12/21/22 13:43 Blood Culture - Final Blood NO GROWTH AFTER 5 DAYS 12/21/22 13:30 Blood Culture - Final Blood NO GROWTH AFTER 5 DAYS A&P Assessment and plan (1) Nausea: (2) Ileus: Plan Advance tube feeds to goal per orders Reglan 10 mg IV every 6 No acute surgical intervention Medical management per hospitalist Attestations Medical Necessity Statement*: per hospitalist Coding Level of Care Code Acute Code for [facility] Fwd Diagnoses Nausea R11.0 Ileus K56.7
--- NOTE | 2022-12-27 12:41 | PC.NURSE ---
Tube feeding clarified with Dr. Davison and changed to reflect dietary recommendations. at bedside updated.
[2022-12-27] MEDS: lactulose oral liq 20 gm/30 mL UDC PO ×2 (14:54→20:41)
--- NOTE | 2022-12-27 16:18 | XRR_ITS ---
PROCEDURE INFORMATION: Exam: XR Chest Exam date and time: 12/27/2022 4:34 PM Age: 62 years old Clinical indication: Shortness of breath; Additional info: Pna TECHNIQUE: Imaging protocol: Radiologic exam of the chest. Views: 1 view. COMPARISON: CR XR chest 1V portable [id number] 12/24/2022 8:55 AM FINDINGS: Tubes, catheters and devices: NG tube is in the proximal stomach. Right central line is in the caval atrial junction. Cardiac device left anterior chest Lungs: Low lung volumes No consolidation. Pleural spaces: Unremarkable. No pleural effusion. No pneumothorax. Heart/Mediastinum: Unremarkable. No cardiomegaly. Bones/joints: Unremarkable. XR/XR chest 1V portable [id number] IMPRESSION: 1. No acute findings. 2. NG tube is in the proximal stomach 3. Right central line is at the caval atrial junction
--- NOTE | 2022-12-27 16:18 | PM.PN ---
Subjective Subjective: No significant events overnight. Patient remains on BiPAP. Today morning opens eyes to verbal stimulus. Continues to grunt. Not able to have verbalization. Hemodynamically stable. Continues to remain BiPAP dependent. Documented output in last 24 hours of 3200. Vitals/I&O/Wt Last Vital Signs Temp 97.7 F 12/27/22 16:10 Pulse 106 H 12/27/22 16:10 Resp 20 H 12/27/22 16:10 BP 140/77 12/27/22 16:10 Pulse Ox 95 12/27/22 16:10 O2 Del Method BiPAP 12/27/22 16:10 O2 Flow Rate 40 12/27/22 08:20 FiO2 35 12/27/22 16:10 12/27/22 12/27/22 12/27/22 06:59 14:59 22:59 Intake Total 1277.667 / 3197.667 308 / 308 Output Total 900 / 3230 375 / 375 Balance 377.667 / -32.333 -67 / -67 Weight last 48 hrs Weight 97.432 kg Weight 97.778 kg Physical Exam Narrative: General: Mild acute distress abdominal pain, lethargic, sick appearing, on BiPAP HEENT: PERRLA, pupils bilaterally equal and reactive Chest: Normal vesicular breath sounds, no added sounds, equal good air entry bilaterally CVS: S1-S2 regular, no murmurs, no tachycardia, no gallops, no rubs Abdomen: Soft, less distended, generalized tenderness, no organomegaly, sluggish bowel sounds present Neuro: No focal deficits, no facial deformity, Urinary Catheter Management: Nuñez: Cath Placed During This Visit: yes Reason for Continuing Indwelling Catheter: Accurate Measurement of Urinary Output in Critically Ill Patients Urinary Catheter Date of Insertion: 12/21/22 Data 12/27/22 03:11 12/27/22 03:11 Micro: Microbiology 12/21/22 13:43 Blood Culture - Final Blood NO GROWTH AFTER 5 DAYS 12/21/22 13:30 Blood Culture - Final Blood NO GROWTH AFTER 5 DAYS A&P Assessment and plan (1) Acute respiratory failure with hypoxia and hypercapnia: (2) Pneumonia: (3) Metabolic encephalopathy: (4) Hyperammonemia: (5) Ileus: (6) Shock: (7) Acute hyponatremia: (8) UTI (urinary tract infection): (9) COVID-19: (10) Protein-energy malnutrition: (11) Physical deconditioning: (12) Abdominal pain: (13) Nausea and vomiting: (14) Hypoxia: (15) Hyperkalemia: (16) Goals of care, counseling/discussion: Plan 62-year-old with past medical history of CAD, severe depression with history of suicidal ideation, chronic back pain with most recent history of small bowel obstruction requiring ex lap, ESBL E. coli UTI and pneumonia, hypertension who presented from the senior care with concerns for abdominal pain, nausea and vomiting and found to be slightly more hypoxic than baseline and hypotensive not responsive to fluid challenges. Septic shock: Resolved. Sepsis: Ruled in. Present on admission. Target organ dysfunction of renal disorder with hyperkalemia and hyponatremia along with poor mentation from metabolic encephalopathy. Keep mean artery pressure 65. Follow-up culture results. Urine culture growing E. coli. Sputum culture growing ESBL E. coli and MRSA. Continue with IV meropenem and vancomycin Nuñez catheterization. Strict input output charting. Metabolic encephalopathy: Most likely in setting of hyperammonia levels, hypercapnic respiratory failure, septic shock, hyponatremia. Cannot rule out secondary to severe protein energy malnutrition and deconditioning. Hyperammonemia: Hold off on lactulose through NG tube. Start on rectal lactulose. Target 2-3 good bowel movements in 24 hours. Repeat ammonia levels in a.m. Hypoxic and hypercapnic respiratory failure: Most likely in setting of metabolic encephalopathy along with pneumonia. COVID-19 positive for more than 10 days. No need for isolation. Dexamethasone 6 mg IV daily. Aggressive pulmonary toilet. Start on chest vest today. BiPAP ventilation keeping saturation over 90%. Repeat ABG in AM. Antibiotic as above. Oxygen supplementation keeping saturation over 90%. Ipratropium, Xopenex every 6 hours, budesonide twice daily for now. Out of bed to chair when possible. Hyponatremia: Resolved. Baseline sodium seems to be around more than 140. Improved to 134 today. Mixed etiology. Could be secondary to hypovolemia the patient is third spacing given hypoalbuminemia. Continue with IV Lasix. Repeat BMP every 12 hours. Hypermagnesemia: Most likely in setting of milk of magnesia along with no bowel movements. Hold off on any further milk of magnesia. Monitor magnesium levels daily. Hyperkalemia: Resolved. Ileus: Resolved. Nausea and vomiting/abdominal pain: Patient has a history of small bowel obstruction post ex lap. Appreciate surgical recommendations. Continue with the lactulose as above. Maintain NG tube. Monitor electrolytes. N.p.o. for now. Anemia: No active signs of bleeding. Hemoglobin down to 7.2. Most likely in setting of malnutrition. Transfuse 1 unit of PRBC. Repeat CBC in AM. IV Protonix 40 mg twice daily for now. UTI: As above. A-fib: Rate controlled currently. Hold off on Coreg for now. On last discharge it seems Eliquis was stopped given borderline anemia at the time. For now we will continue to hold. Will discuss in detail with the patient prior to discharge and restart if needed. Telemetry. Having episodes of nonsustained V. tach. Severe physical deconditioning Protein energy malnutrition. Goals of care discussion: Had extensive goals of care discussion at bedside with family including patient's DPOA and son. We discussed that patient's has severe physical deconditioning, malnutrition which has been ongoing for many months. On confirming with senior care patient is not doing much even with physical therapy at senior care. Over hospital as well patient continues to show severe poor motivation. We discussed that unfortunately this all makes patient at a higher risk of more infections, worsening respiratory status and is also the reason for him developing ileus. We discussed currently patient has been severe sepsis and metabolic encephalopathy. As per family they had discussed about this in detail and they will want patient to have better quality of life than quantity of life and they agree if patient does not improve within next 24 to 48 hours they would like to go ahead with hospice. Plan to continue with current treatment for now. Plan to discharge back to senior care with hospice once medically stable. Plan for the day: Stop lactulose enema. Start on oral lactulose through NG tube. Continue with tube feeds. Change as per dietitian recommendations. Increase 10 cc every 4 hours. Continue with rifaximin. Repeat ammonia levels in a.m. Monitor CBC and CMP along with ammonia levels daily. Strict input output charting. Repeat chest x-ray. Stop IV fluids once tube feeds reached goal. Continue free water flushes as per sodium levels. Repeat BMP in evening. If patient's mentation does not improve even after ammonia levels normalizing then will plan for initiation of hospice. Plan for now is to continue current treatment and to discharge back to senior care with hospice given goals of care discussion with DPOA few days ago. CODE STATUS: Discussed in detail with the patient. He confirms with recent changes CODE STATUS to DNI/DNR on last admission. Is agreeable for ICU admission and vasopressors if needed. His Ms. Sanchez will be the DPOA. N.p.o. Protonix OPD prophylaxis Heparin for DVT prophylaxis. Continue care at ICU. Patient is critically sick Attestations Medical Necessity Statement*: Requires further hospitalization for management of MRSA, ESBL E. coli pneumonia as patient remains BiPAP dependent, anabolic encephalopathy in setting of hepatic encephalopathy, elevated ammonia levels, resolving ileus tube feeds were started. Coding Level of Care Code Critical Care >/= 30 minutes Critical care time (in minutes): 60 The high probability of a clinically significant, sudden or life threatening deterioration, as referenced in this documentation, required my full and direct attention, intervention and personal management. The critical care time shown is in addition to time spent performing any reported separately billable procedures and includes the following: [x] Data and vital sign review and interpretation [x] Patient assessment, examination and intervention [x] Medication orders and management [x] Patient/Family updates as able [x] Care Coordination and Documentation. Other Coding Information This patient has a high probability of clinically significant, sudden or life threatening deterioration of the patient's (neurological/pulmonary/cardiac/renal/ID/endocrine) systems required my full, direct attention, the highest level of physician preparedness for urgent intervention and personal management. I managed/supervised life or organ supporting interventions that required frequent physician assessment. I devoted my full attention in the ICU to the direct care of this patient for the period of time indicated above. Time I spent with family or surrogate(s) is included only if the patient was incapable of providing necessary information or participating in decision making. This time includes the following services provided: Telemetry review BiPAP ventilation Hemodynamic interpretation, assessment and management Review and interpretation of CXR Review and interpretation of lab values Review and interpretation of microbiologic data and culture results Review of medications and administration Review and interpretation of Nutrition requirements and management Discussion of management with other consultants and services Clinical update to family members Diagnoses Acute respiratory failure with hypoxia and hypercapnia J96.01; J96.02 Pneumonia J18.9 Metabolic encephalopathy G93.41 Hyperammonemia E72.20 Ileus K56.7 Shock R57.9 Acute hyponatremia E87.1 UTI (urinary tract infection) N39.0 COVID-19 U07.1 Protein-energy malnutrition E46 Physical deconditioning R53.81 Abdominal pain R10.9 Nausea and vomiting R11.2 Hypoxia R09.02 Hyperkalemia E87.5 Goals of care, counseling/discussion Z71.89
[2022-12-27 17:28] LABS: Anion Gap 10.1 (5-19); Blood Urea Nitrogen 25 mg/dL (8-23); Calcium 8.4 mg/dL (8.5-10.5); Carbon Dioxide 28 mmol/L (22-29); Chloride 114 mmol/L (98-107); Glomerular Filtration Rate 218.7 mL/min (90-130); Glucose 177 mg/dL (65-115); Osmolality Calculated 317 mOsm/kg (285-295); Potassium 3.1 mmol/L (3.5-5.1); Sodium 149 mmol/L (136-145)
[2022-12-27 17:34] LABS: Vancomycin Trough 27.5 ug/mL (10-15)
--- NOTE | 2022-12-27 18:01 | PC.PHAR ---
CRITICAL TROUGH LEVEL 27.5. HOLD DOSE 24 HOURS, CHECK VANC LEVEL 1700 12/28.
[2022-12-27] MEDS: dextrose 5%-sod chloride 0.9% 1,000 ML 50 ML IV (21:36)
[2022-12-28] VITALS (34 sets, daily range): BP systolic 119–146; BP diastolic 77–94; PULSE 90–122; RESP 18–39; TEMP 37.1–38; O2SAT 88–97; BMI 36.0
[2022-12-28] MEDS: lactulose oral liq 20 gm/30 mL UDC PO ×4 (02:53→19:27)
[2022-12-28] MEDS: metoclopramide 5 mg/mL SDV 2 mL 10 MG IVP ×4 (02:53→19:27)
[2022-12-28] MEDS: meropenem 1,000 MG in sodium chloride 0.9% (plus) 50 ML 100 MG IV ×3 (02:53→18:03)
[2022-12-28] MEDS: ipratropium 0.5 mg/2.5 mL Neb INHALATION ×4 (03:05→20:06)
[2022-12-28] MEDS: levalbuterol 0.63 mg/3 mL Neb INHALATION ×4 (03:05→20:06)
[2022-12-28 03:44] LABS: Basophils % 0.1 %; Hematocrit 27.4 % (42.0-52.0); Hemoglobin 8.9 g/dL (11.7-16.6); Lymphocytes # 0.6 10^3/uL (0.8-4.8); Lymphocytes % 5.4 %; Mean Corpuscular HGB Conc 32.5 g/dL (30.0-36.0); Mean Corpuscular Hemoglobin 32.1 pg (28.0-34.0); Mean Corpuscular Volume 98.9 fl (80-94); Mean Platelet Volume 11.7 fL (7.4-10.4); Monocytes # 0.3 10^3/uL (0.2-0.9); Neutrophils # 9.38 10^3/uL (1.8-7.7); Nucleated Red Blood Cells % 0 %; Platelet Count 99 10^3/cmm (130-400); Red Blood Count 2.77 10^6/uL (4.1-5.3); Red Cell Distribution Width 16.8 % (12.1-15.1); White Blood Count 10.3 10^3/uL (4.0-10.0)
[2022-12-28 03:54] LABS: Ammonia 67 umol/L (16-60)
[2022-12-28 03:55] LABS: Alanine Aminotransferase 23 U/L (0-41); Albumin Level 3.4 g/dL (3.5-5.2); Alkaline Phosphatase 131 U/L (40-130); Anion Gap 9.9 (5-19); Aspartate Amino Transferase 51 U/L (0-40); Blood Urea Nitrogen 24 mg/dL (8-23); Calcium 8.3 mg/dL (8.5-10.5); Carbon Dioxide 29 mmol/L (22-29); Chloride 114 mmol/L (98-107); Globulin 2.2 g/dL (1.3-4.6); Glomerular Filtration Rate 218.7 mL/min (90-130); Glucose 185 mg/dL (65-115); Magnesium 2.8 mg/dL (1.7-2.3); Osmolality Calculated 319 mOsm/kg (285-295); Sodium 150 mmol/L (136-145); Total Bilirubin 1.1 mg/dL (0.15-1.2); Total Protein 5.6 g/dL (6.6-8.7)
[2022-12-28 03:56] LABS: Potassium 2.9 mmol/L (3.5-5.1)
[2022-12-28] MEDS: pantoprazole 40 mg SDV IVP ×2 (04:37→18:07)
[2022-12-28] MEDS: potassium chloride ER 20 mEq Tablet 60 MEQ PO (04:37)
[2022-12-28] MEDS: morphine 4 mg/mL SDV 1 mL 2 MG IVP (10:00)
[2022-12-28] MEDS: metoprolol tartrate 1 mg/1 mL SDV 5 mL 5 MG IVP (10:22)
[2022-12-28] MEDS: dexamethasone 10 mg/mL INJ 6 MG IVP (10:24)
--- NOTE | 2022-12-28 11:36 | P.PN_ITS ---
Subjective Subjective: Patient was seen and examined this morning, continued to be encephalopathic, no significant change in mentation since yesterday. Ammonia level is coming down, serum sodium has gone up.Will start him on D5 water. Monitor BMP for now.Continue to be on BiPAP. Medications: Medication Review Details: Generic Name Dose Route Start Last Admin Trade Name Mikalq PRN Reason Stop Dose Admin Acetaminophen 650 mg 12/21/22 18:35 12/23/22 08:42 Acetaminophen 32 5 Mg Tablet PO 650 mg Q6H PRN Administration Mild/Mod Pain Or Temp >/= 101 Dexamethasone 6 mg 12/22/22 10:00 12/28/22 10:24 Dexamethasone 10 Mg/Ml Inj IVP 6 mg Q24H SAVANAH Administration Docusate Sodium 100 mg 12/21/22 18:35 12/25/22 08:48 Docusate Sodium 100 Mg Capsule PO 100 mg BID SAVANAH Administration Furosemide 40 mg 12/25/22 08:30 12/26/22 08:19 Furosemide 10 Mg /Ml Sdv 4ml IVP 40 mg Q12H SAVANAH Administration Heparin Sodium (Po rcine) 5,000 unit 12/21/22 20:00 12/25/22 20:24 Heparin 5,000 Un it/Ml Inj 1 Ml SUBCUT 5,000 unit Q12H SAVANAH Administration Meropenem 1,000 mg / Sodium 50 mls @ 100 mls/ hr 12/21/22 17:30 12/28/22 10:26 Chloride IV 100 mls/hr Q8H SAVANAH Administration Protocol Norepinephrine Bit artrate 8 mg 508 mls @ 0 mls/h r 12/23/22 04:30 12/24/22 06:06 / Dextrose IV 0 mcg/min .Q0M SAVANAH 0 mls/hr Titration Protocol Per Protocol Dextrose/Sodium Ch loride 1,000 mls @ 50 ml s/hr 12/27/22 19:30 12/27/22 21:36 Dextrose 5%-Sod Chloride 0.9% IV 50 mls/hr .Q20H SAVANAH Administration Ipratropium Bromid e 0.5 mg 12/21/22 20:00 12/28/22 09:19 Ipratropium 0.5 Mg/2.5 Ml Neb INHALATION 0.5 mg Q6H.RESP SAVANAH Administration Lactulose 200 gm 12/25/22 08:30 12/27/22 09:00 Lactulose Oral L iq 20 Gm/30 Ml Udc DE 200 gm Q6H SAVANAH Administration Lactulose 20 gm 12/27/22 14:00 12/28/22 08:27 Lactulose Oral L iq 20 Gm/30 Ml Udc PO 20 gm Q6H SAVANAH Administration Levalbuterol HCl 0.63 mg 12/21/22 20:00 12/28/22 09:19 Levalbuterol 0.6 3 Mg/3 Ml Neb INHALATION 0.63 mg Q6H.RESP SAVANAH Administration Metoclopramide HCl 10 mg 12/24/22 14:00 12/28/22 08:27 Metoclopramide 5 Mg/Ml Sdv 2 Ml IVP 10 mg Q6H SAVANAH Administration Metoprolol Tartrat e 5 mg 12/26/22 10:22 12/28/22 10:22 Metoprolol Tartr ate 1 Mg/1 Ml Sdv 5 Ml IVP 5 mg Q4H PRN Administration Hr more than 110 bpm Ondansetron HCl 4 mg 12/21/22 18:35 12/24/22 12:26 Ondansetron 2 Mg /Ml Sdv 2 Ml IVP 4 mg Q6H PRN Administration vomiting, or N/V if npo Pantoprazole Sodiu m 40 mg 12/25/22 17:15 12/28/22 04:37 Pantoprazole 40 Mg Sdv IVP 40 mg Q12H SAVANAH Administration Quetiapine Fumarat e 100 mg 12/23/22 21:00 12/23/22 20:43 Quetiapine 100 M g Tablet PO 100 mg BEDTIME SAVANAH Administration Rifaximin 550 mg 12/26/22 10:30 12/28/22 08:27 Rifaximin 550 Mg Tablet PO 550 mg BID SAVANAH Administration Protocol Sertraline HCl 50 mg 12/24/22 06:00 12/24/22 05:27 Sertraline 50 Mg Tablet PO Not Given QAM SAVANAH Vitals/I&O/Wt Last Vital Signs Temp 100 F H 12/28/22 04:00 Pulse 108 H 12/28/22 09:29 Resp 39 H 12/28/22 10:00 BP 136/94 12/28/22 08:00 Pulse Ox 91 12/28/22 10:00 O2 Del Method BiPAP 12/28/22 09:19 O2 Flow Rate 40 12/27/22 08:20 FiO2 35 12/28/22 09:22 12/27/22 12/28/22 12/28/22 22:59 06:59 14:59 Intake Total 1855.167 / 2163.167 480 / 2643.167 Output Total 875 / 1250 300 / 1550 100 / 100 Balance 980.167 / 913.167 180 / 1093.167 -100 / -100 Weight last 48 hrs Weight 95.254 kg Weight 97.432 kg Physical Exam HENMT: COMMON NORMALS: normocephalic and atraumatic HEAD & SCALP: normocephalic and atraumatic Resp: COMMON NORMALS: clear to auscultation bilaterally AUSCULTATION: clear to auscultation bilaterally Cardio: COMMON NORMALS: regular rate, regular rhythm, S1 normal heart sound present, S2 normal heart sound present, No gallops present (Cardio), No murmurs present (Cardio), No rub (Cardio) and Peripheral pulses 2+ throughout RATE: regular rate RHYTHM: regular rhythm HEART SOUNDS: S1 normal heart sound present and S2 normal heart sound present PERIPHERAL PULSES: Peripheral pulses 2+ throughout GI: COMMON NORMALS: Soft to palpation and no masses PALPATION: Yes Soft to palpation RECTAL EXAM: Yes deferred OTHER: hypoactive BS Present Extremity: COMMON NORMALS: no clubbing, cyanosis or edema and no pedal edema Urinary Catheter Management: Nuñez: Cath Placed During This Visit: yes Reason for Continuing Indwelling Catheter: Accurate Measurement of Urinary Output in Critically Ill Patients Urinary Catheter Date of Insertion: 12/21/22 Data 12/28/22 03:16 12/28/22 03:16 A&P Assessment and plan (1) Acute respiratory failure with hypoxia and hypercapnia: (2) Pneumonia: (3) Metabolic encephalopathy: (4) Hyperammonemia: (5) Ileus: (6) Shock: (7) Acute hyponatremia: (8) UTI (urinary tract infection): (9) COVID-19: (10) Protein-energy malnutrition: (11) Physical deconditioning: (12) Abdominal pain: (13) Nausea and vomiting: (14) Hypoxia: (15) Hyperkalemia: (16) Goals of care, counseling/discussion: Plan 62-year-old with past medical history of CAD, severe depression with history of suicidal ideation, chronic back pain with most recent history of small bowel obstruction requiring ex lap, ESBL E. coli UTI and pneumonia, hypertension who presented from the [facility] with concerns for abdominal pain, nausea and vomiting and found to be slightly more hypoxic than baseline and hypotensive not responsive to fluid challenges. Septic shock: Resolved. Sepsis: Ruled in. Present on admission. Target organ dysfunction of renal disorder with hyperkalemia and hyponatremia along with poor mentation from metabolic encephalopathy. Keep mean artery pressure 65. Follow-up culture results. Urine culture growing E. coli. Sputum culture growing ESBL E. coli and MRSA. Continue with IV meropenem and vancomycin Nuñez catheterization. Strict input output charting. Metabolic encephalopathy: Most likely in setting of hyperammonia levels, hypercapnic respiratory failure, septic shock, hyponatremia. Cannot rule out secondary to severe protein energy malnutrition and deconditioning. Hyperammonemia: Hold off on lactulose through NG tube. Start on rectal lactulose. Target 2-3 good bowel movements in 24 hours. Repeat ammonia levels in a.m. Hypoxic and hypercapnic respiratory failure: Most likely in setting of metabolic encephalopathy along with pneumonia. COVID-19 positive for more than 10 days. No need for isolation. Dexamethasone 6 mg IV daily. Aggressive pulmonary toilet. Start on chest vest today. BiPAP ventilation keeping saturation over 90%. Repeat ABG in AM. Antibiotic as above. Oxygen supplementation keeping saturation over 90%. Ipratropium, Xopenex every 6 hours, budesonide twice daily for now. Out of bed to chair when possible. Hyponatremia: Resolved. Baseline sodium seems to be around more than 140. Improved to 134 today. Mixed etiology. Could be secondary to hypovolemia the patient is third spacing given hypoalbuminemia. Continue with IV Lasix. Repeat BMP every 12 hours. Hypermagnesemia: Most likely in setting of milk of magnesia along with no bowel movements. Hold off on any further milk of magnesia. Monitor magnesium levels daily. Hyperkalemia: Resolved. Ileus: Resolved. Nausea and vomiting/abdominal pain: Patient has a history of small bowel obstruction post ex lap. Appreciate surgical recommendations. Continue with the lactulose as above. Maintain NG tube. Monitor electrolytes. N.p.o. for now. Anemia: No active signs of bleeding. Hemoglobin down to 7.2. Most likely in setting of malnutrition. Transfuse 1 unit of PRBC. Repeat CBC in AM. IV Protonix 40 mg twice daily for now. UTI: As above. A-fib: Rate controlled currently. Hold off on Coreg for now. On last discharge it seems Eliquis was stopped given borderline anemia at the time. For now we will continue to hold. Will discuss in detail with the patient prior to discharge and restart if needed. Telemetry. Having episodes of nonsustained V. tach. Severe physical deconditioning Protein energy malnutrition. Goals of care discussion: Had extensive goals of care discussion at bedside with family including patient's DPOA and son. We discussed that patient's has severe physical deconditioning, malnutrition which has been ongoing for many months. On confirming with [facility] patient is not doing much even with physical therapy at [facility]. Over hospital as well patient continues to show severe poor motivation. We discussed that unfortunately this all makes patient at a higher risk of more infections, worsening respiratory status and is also the reason for him developing ileus. We discussed currently patient has been severe sepsis and metabolic encephalopathy. As per family they had discussed about this in detail and they will want patient to have better quality of life than quantity of life and they agree if patient does not improve within next 24 to 48 hours they would like to go ahead with hospice. Plan to continue with current treatment for now. Plan to discharge back to [facility] with hospice once medically stable. CODE STATUS: Discussed in detail with the patient. He confirms with recent changes CODE STATUS to DNI/DNR on last admission. Is agreeable for ICU admission and vasopressors if needed. His Ms. Sanchez will be the DPOA. N.p.o. Protonix OPD prophylaxis Heparin for DVT prophylaxis. Continue care at ICU. Patient is critically sick Attestations Medical Necessity Statement*: Needs to be in hospital for management of encephalopathy Coding Level of Care Code Acute Code for [facility] Fwd Diagnoses Acute respiratory failure with hypoxia and hypercapnia J96.01; J96.02 Pneumonia J18.9 Metabolic encephalopathy G93.41 Hyperammonemia E72.20 Ileus K56.7 Shock R57.9 Acute hyponatremia E87.1 UTI (urinary tract infection) N39.0 COVID-19 U07.1 Protein-energy malnutrition E46 Physical deconditioning R53.81 Abdominal pain R10.9 Nausea and vomiting R11.2 Hypoxia R09.02 Hyperkalemia E87.5 Goals of care, counseling/discussion Z71.89
--- NOTE | 2022-12-28 14:42 | PC.SOCIAL ---
IMM update pg 2 of IMM updated and reviewed w/ patients Laura. Copy left @ bedside and copy in chart dated and initialed.
[2022-12-28] MEDS: dextrose 5%-sod chloride 0.9% 1,000 ML 50 ML IV (18:05)
[2022-12-28] MEDS: acetaminophen 325 mg Tablet 650 MG PO (18:06)
[2022-12-28 18:26] LABS: Vancomycin Trough 15.7 ug/mL (10-15)
--- NOTE | 2022-12-28 19:13 | PM.PN ---
Subjective Subjective: Patient seen and examined. He is tolerating tube feeds at goal and having bowel movements. No grimace to palpation of his abdomen. Vitals/I&O/Wt Last Vital Signs Temp 99.2 F 12/29/22 16:00 Pulse 106 H 12/29/22 17:12 Resp 22 H 12/29/22 16:00 BP 98/75 12/29/22 16:00 Pulse Ox 95 12/29/22 17:12 O2 Del Method BiPAP 12/29/22 16:00 O2 Flow Rate 40 12/27/22 08:20 FiO2 30 12/29/22 17:12 12/29/22 12/29/22 12/29/22 06:59 14:59 22:59 Intake Total 1264 / 3765.667 1969.5 / 1969.5 809.5 / 2779.0 Output Total 1350 / 1550 500 / 500 300 / 800 Balance -86 / 2215.667 1469.5 / 1469.5 509.5 / 1979.0 Weight last 48 hrs Weight 213 lb 4.8 oz Weight 210 lb Physical Exam Narrative: General: No acute distress Abdomen: Soft, nontender, nondistended, no guarding rebound or masses Urinary Catheter Management: Nuñez: Cath Placed During This Visit: yes Reason for Continuing Indwelling Catheter: Accurate Measurement of Urinary Output in Critically Ill Patients Urinary Catheter Date of Insertion: 12/21/22 Data 12/29/22 03:34 12/29/22 03:34 A&P Assessment and plan (1) Nausea: (2) Ileus: Plan Tube feeding at goal Reglan 10 mg IV every 6 No acute surgical intervention Medical management per hospitalist General surgery will sign off. Please reconsult if necessary Attestations Medical Necessity Statement*: Per primary Coding Level of Care Code Acute Code for [facility] Fwd Diagnoses Nausea R11.0 Ileus K56.7
--- NOTE | 2022-12-28 19:57 | PC.NURSE ---
SHift SUmmary: uneventful shift. Patient rested in bed throughout the day. Mental status is unchanged. Appears to have a startle response to voice, unresponsive to painful stimuli, no purposeful actions observed.
[2022-12-28 20:07] LABS: Glucose Point of Care 224 mg/dL (70-110)
--- NOTE | 2022-12-28 21:00 | PC.NURSE ---
Insulin Patient's blood glucose 224 with tube feed and dextrose fluid administering; additionally, 3 separate orders in patient chart for tube feed. Dr. Roldan contacted and order received to start low intensity sliding scale insulin Q6H and follow Dr. Davison's order for tube feed--Glucerna with a goal of 40 ml/hr with a 250 ml flush Q4H.
[2022-12-28 21:18] LABS: Glucose Point of Care 195 mg/dL (70-110)
[2022-12-28] MEDS: insulin lispro 100 unit/1 mL SUBCUT (21:19)
[2022-12-28] MEDS: dextrose 5% 1,000 ML 75 ML IV (21:19)
[2022-12-29] VITALS (37 sets, daily range): BP systolic 98–121; BP diastolic 63–85; PULSE 82–117; RESP 18–29; TEMP 36.6–37.7; O2SAT 93–97; BMI 36.6
--- NOTE | 2022-12-29 00:48 | PC.PHAR ---
Vancomycin Trough 12/28 @ 1700 was 15.7. Within normal range, restarted dose 12/29 @0100 Will continue to follow, Thank you, Meghna Rivera [facility]
[2022-12-29] MEDS: vancomycin 1,500 MG/300 ML PIGGYBACK 200 MG IV (01:45)
[2022-12-29] MEDS: meropenem 1,000 MG in sodium chloride 0.9% (plus) 50 ML 100 MG IV ×3 (01:45→16:38)
[2022-12-29] MEDS: lactulose oral liq 20 gm/30 mL UDC PO ×2 (01:45→08:02)
[2022-12-29] MEDS: metoclopramide 5 mg/mL SDV 2 mL 10 MG IVP ×4 (01:46→20:03)
[2022-12-29] MEDS: ipratropium 0.5 mg/2.5 mL Neb INHALATION ×4 (02:09→19:48)
[2022-12-29] MEDS: levalbuterol 0.63 mg/3 mL Neb INHALATION ×4 (02:09→19:48)
[2022-12-29 02:10] LABS: Glucose Point of Care 131 mg/dL (70-110)
--- NOTE | 2022-12-29 03:00 | PC.NURSE ---
Dr. Roldan notified of patient arrhythmia this AM. Order for an ekg recieved. Copy of arrhythmia alarms in patient paper chart.
--- NOTE | 2022-12-29 03:40 | ECG_ITS ---
[facility] Test Date: 2022-12-29 Pat Name: Jeremie Alexander Department: Room: ICU10 Gender: Male [employer] Installer: : [id number] Requested By: Diana Roldan Order Number: [id number] Lucinda MD: Carimna Wallace M.D. Measurements Intervals [place] Rate: 104 P: 32 NE: 137 QRS: -1 QRSD: 82 T: 19 QT: 305 QTc: 403 Interpretive Statements SINUS TACHYCARDIA WITH FREQUENT SUPRAVENTRICULAR PREMATURE COMPLEXES LOW QRS VOLTAGE [QRS DEFLECTION < 0.5/1.0 mV IN LIMB/CHEST LEADS] MINIMAL ST DEPRESSION [0.025+ mV ST DEPRESSION] Compared to ECG 12/26/2022 18:24:27 No significant changes Electronically Signed On 12-30-2022 1:13:41 CDT by Carmina Wallace M.D. [email or web address]
[2022-12-29 03:52] LABS: Basophils % 0.1 %; Hematocrit 26.7 % (42.0-52.0); Hemoglobin 8.4 g/dL (11.7-16.6); Lymphocytes # 0.7 10^3/uL (0.8-4.8); Lymphocytes % 5.9 %; Mean Corpuscular HGB Conc 31.5 g/dL (30.0-36.0); Mean Corpuscular Hemoglobin 32.9 pg (28.0-34.0); Mean Corpuscular Volume 104.7 fl (80-94); Mean Platelet Volume 12.5 fL (7.4-10.4); Monocytes # 0.4 10^3/uL (0.2-0.9); Neutrophils # 10.56 10^3/uL (1.8-7.7); Neutrophils % 90.5 %; Nucleated Red Blood Cells % 0.3 %; Platelet Count 82 10^3/cmm (130-400); Red Blood Count 2.55 10^6/uL (4.1-5.3); Red Cell Distribution Width 17.3 % (12.1-15.1); White Blood Count 11.7 10^3/uL (4.0-10.0)
[2022-12-29 04:14] LABS: Alanine Aminotransferase 59 U/L (0-41); Alkaline Phosphatase 146 U/L (40-130); Anion Gap 10.7 (5-19); Aspartate Amino Transferase 117 U/L (0-40); Blood Urea Nitrogen 24 mg/dL (8-23); Carbon Dioxide 28 mmol/L (22-29); Chloride 116 mmol/L (98-107); Globulin 2.1 g/dL (1.3-4.6); Glomerular Filtration Rate 218.7 mL/min (90-130); Glucose 157 mg/dL (65-115); Osmolality Calculated 319 mOsm/kg (285-295); Potassium 3.7 mmol/L (3.5-5.1); Sodium 151 mmol/L (136-145); Total Bilirubin 0.8 mg/dL (0.15-1.2); Total Protein 5.1 g/dL (6.6-8.7)
[2022-12-29 04:17] LABS: Ammonia 48 umol/L (16-60)
[2022-12-29] MEDS: pantoprazole 40 mg SDV IVP ×2 (05:21→16:39)
[2022-12-29 07:54] LABS: Glucose Point of Care 157 mg/dL (70-110)
[2022-12-29] MEDS: insulin lispro 100 unit/1 mL SUBCUT ×3 (08:02→20:20)
[2022-12-29] MEDS: metoprolol tartrate 1 mg/1 mL SDV 5 mL 5 MG IVP ×2 (08:58→18:33)
[2022-12-29] MEDS: dextrose 5% 1,000 ML 75 ML IV (09:05)
[2022-12-29] MEDS: dexamethasone 10 mg/mL INJ 6 MG IVP (09:05)
[2022-12-29 13:07] LABS: Glucose Point of Care 242 mg/dL (70-110)
[2022-12-29 13:07] LABS: Glucose Point of Care 225 mg/dL (70-110)
--- NOTE | 2022-12-29 13:13 | P.PN_ITS ---
Subjective Subjective: Patient was seen and examined this morning, continued to be encephalopathic, no significant change in mentation, serum ammonia has normalized, unfortunately serum sodium is going up, will increase the rate of D5 water TO 125 cc an hour. Medications: Medication Review Details: Generic Name Dose Route Start Last Admin Trade Name Mikalq PRN Reason Stop Dose Admin Acetaminophen 650 mg 12/21/22 18:35 12/28/22 18:06 Acetaminophen 32 5 Mg Tablet PO 650 mg Q6H PRN Administration Mild/Mod Pain Or Temp >/= 101 Dexamethasone 6 mg 12/22/22 10:00 12/29/22 09:05 Dexamethasone 10 Mg/Ml Inj IVP 6 mg Q24H SAVANAH Administration Docusate Sodium 100 mg 12/21/22 18:35 12/25/22 08:48 Docusate Sodium 100 Mg Capsule PO 100 mg BID SAVANAH Administration Furosemide 40 mg 12/25/22 08:30 12/26/22 08:19 Furosemide 10 Mg /Ml Sdv 4ml IVP 40 mg Q12H SAVANAH Administration Heparin Sodium (Po rcine) 5,000 unit 12/21/22 20:00 12/25/22 20:24 Heparin 5,000 Un it/Ml Inj 1 Ml SUBCUT 5,000 unit Q12H SAVANHA Administration Meropenem 1,000 mg / Sodium 50 mls @ 100 mls/ hr 12/21/22 17:30 12/29/22 10:08 Chloride IV Infused Q8H SAVANAH Infusion Protocol Norepinephrine Bit artrate 8 mg 508 mls @ 0 mls/h r 12/23/22 04:30 12/24/22 06:06 / Dextrose IV 0 mcg/min .Q0M SAVANAH 0 mls/hr Titration Protocol Per Protocol Dextrose 1,000 mls @ 125 m ls/hr 12/28/22 20:15 12/29/22 09:05 D5w IV 75 mls/hr .Q8H SAVANAH Administration Vancomycin/PEG/NAD A/Lysine/Water 1,500 mg in 300 m ls @ 200 mls/hr 12/29/22 01:00 12/29/22 03:51 Vancocin IV Infused Q36H SAVANAH Infusion Insulin Human Lisp ro 0 unit 12/28/22 20:30 12/29/22 08:02 Insulin Lispro 1 00 Unit/1 Ml SUBCUT 2 unit Q6H SAVANAH Administration Protocol Ipratropium Bromid e 0.5 mg 12/21/22 20:00 12/29/22 09:10 Ipratropium 0.5 Mg/2.5 Ml Neb INHALATION 0.5 mg Q6H.RESP SAVANAH Administration Lactulose 200 gm 12/25/22 08:30 12/27/22 09:00 Lactulose Oral L iq 20 Gm/30 Ml Udc [place] 200 gm Q6H SAVANAH Administration Lactulose 20 gm 12/27/22 14:00 12/29/22 08:02 Lactulose Oral L iq 20 Gm/30 Ml Udc PO 20 gm Q6H SAVANAH Administration Levalbuterol HCl 0.63 mg 12/21/22 20:00 12/29/22 09:10 Levalbuterol 0.6 3 Mg/3 Ml Neb INHALATION 0.63 mg Q6H.RESP SAVANAH Administration Metoclopramide HCl 10 mg 12/24/22 14:00 12/29/22 08:02 Metoclopramide 5 Mg/Ml Sdv 2 Ml IVP 10 mg Q6H SAVANAH Administration Metoprolol Tartrat e 5 mg 12/26/22 10:22 12/29/22 08:58 Metoprolol Tartr ate 1 Mg/1 Ml Sdv 5 Ml IVP 5 mg Q4H PRN Administration Hr more than 110 bpm Ondansetron HCl 4 mg 12/21/22 18:35 12/24/22 12:26 Ondansetron 2 Mg /Ml Sdv 2 Ml IVP 4 mg Q6H PRN Administration vomiting, or N/V if npo Pantoprazole Sodiu m 40 mg 12/25/22 17:15 12/29/22 05:21 Pantoprazole 40 Mg Sdv IVP 40 mg Q12H SAVANAH Administration Quetiapine Fumarat e 100 mg 12/23/22 21:00 12/23/22 20:43 Quetiapine 100 M g Tablet PO 100 mg BEDTIME SAVANAH Administration Rifaximin 550 mg 12/26/22 10:30 12/29/22 09:04 Rifaximin 550 Mg Tablet PO 550 mg BID SAVANAH Administration Protocol Sertraline HCl 50 mg 12/24/22 06:00 12/24/22 05:27 Sertraline 50 Mg Tablet PO Not Given QAM SAVANAH Vitals/I&O/Wt Last Vital Signs Temp 99.8 F H 12/29/22 12:00 Pulse 117 H 12/29/22 12:23 Resp 22 H 12/29/22 12:00 BP 110/81 12/29/22 12:00 Pulse Ox 97 12/29/22 12:00 O2 Del Method BiPAP 12/29/22 12:00 O2 Flow Rate 40 12/27/22 08:20 FiO2 35 12/29/22 12:00 12/28/22 12/29/22 12/29/22 22:59 06:59 14:59 Intake Total 2451.667 / 2501.667 1264 / 3765.667 1719.5 / 1719.5 Output Total 1350 / 1550 500 / 500 Balance 2451.667 / 2301.667 -86 / 2215.667 1219.5 / 1219.5 Weight last 48 hrs Weight 96.751 kg Weight 95.254 kg Physical Exam Narrative: Patient currently is unresponsive, did not even respond to deep sternal rub. HENMT: COMMON NORMALS: normocephalic and atraumatic HEAD & SCALP: normo cephalic and atraumatic Resp: COMMON NORMALS: clear to auscultation bilaterally AUSCULTATION: clear to auscultation bilaterally Cardio: COMMON NORMALS: regular rate, regular rhythm, S1 normal heart sound present, S2 normal heart sound present, No gallops present (Cardio), No murmurs present (Cardio), No rub (Cardio) and Peripheral pulses 2+ throughout RATE: regular rate RHYTHM: regular rhythm HEART SOUNDS: S1 normal heart sound present and S2 normal heart sound present PERIPHERAL PULSES: Peripheral pulses 2+ throughout GI: COMMON NORMALS: Soft to palpation and no masses PALPATION: Yes Soft to palpation RECTAL EXAM: Yes deferred OTHER: hypoactive BS Present Extremity: COMMON NORMALS: no clubbing, cyanosis or edema and no pedal edema Urinary Catheter Management: Nuñez: Cath Placed During This Visit: yes Reason for Continuing Indwelling Catheter: Accurate Measurement of Urinary Output in Critically Ill Patients Urinary Catheter Date of Insertion: 12/21/22 Data 12/29/22 03:34 12/29/22 03:34 A&P Assessment and plan (1) Acute respiratory failure with hypoxia and hypercapnia: (2) Pneumonia: (3) Metabolic encephalopathy: (4) Hyperammonemia: (5) Ileus: (6) Shock: (7) Acute hyponatremia: (8) UTI (urinary tract infection): (9) COVID-19: (10) Protein-energy malnutrition: (11) Physical deconditioning: (12) Abdominal pain: (13) Nausea and vomiting: (14) Hypoxia: (15) Hyperkalemia: (16) Goals of care, counseling/discussion: Plan 62-year-old with past medical history of CAD, severe depression with history of suicidal ideation, chronic back pain with most recent history of small bowel obstruction requiring ex lap, ESBL E. coli UTI and pneumonia, hypertension who presented from the intermediate with concerns for abdominal pain, nausea and vomiting and found to be slightly more hypoxic than baseline and hypotensive not responsive to fluid challenges. Septic shock: Resolved. Sepsis: Ruled in. Present on admission. Target organ dysfunction of renal disorder with hyperkalemia and hyponatremia along with poor mentation from metabolic encephalopathy. Keep mean artery pressure 65. Follow-up culture results. Urine culture growing E. coli. Sputum culture growing ESBL E. coli and MRSA. Continue with IV meropenem and vancomycin Nuñez catheterization. Strict input output charting. Metabolic encephalopathy: Most likely in setting of hyperammonia levels, hypercapnic respiratory failure, septic shock, hyponatremia. Cannot rule out secondary to severe protein energy malnutrition and deconditioning. Hyperammonemia: Hold off on lactulose through NG tube. Start on rectal lactulose. Target 2-3 good bowel movements in 24 hours. Repeat ammonia levels in a.m. Hypoxic and hypercapnic respiratory failure: Most likely in setting of metabolic encephalopathy along with pneumonia. COVID-19 positive for more than 10 days. No need for isolation. Dexamethasone 6 mg IV daily. Aggressive pulmonary toilet. Start on chest vest today. BiPAP ventilation keeping saturation over 90%. Repeat ABG in AM. Antibiotic as above. Oxygen supplementation keeping saturation over 90%. Ipratropium, Xopenex every 6 hours, budesonide twice daily for now. Out of bed to chair when possible. Hyponatremia: Resolved. Baseline sodium seems to be around more than 140. Improved to 134 today. Mixed etiology. Could be secondary to hypovolemia the patient is third spacing given hypoalbuminemia. Continue with IV Lasix. Repeat BMP every 12 hours. Hypermagnesemia: Most likely in setting of milk of magnesia along with no bowel movements. Hold off on any further milk of magnesia. Monitor magnesium levels daily. Hyperkalemia: Resolved. Ileus: Resolved. Nausea and vomiting/abdominal pain: Patient has a history of small bowel obstruction post ex lap. Appreciate surgical recommendations. Continue with the lactulose as above. Maintain NG tube. Monitor electrolytes. N.p.o. for now. Anemia: No active signs of bleeding. Hemoglobin down to 7.2. Most likely in setting of malnutrition. Transfuse 1 unit of PRBC. Repeat CBC in AM. IV Protonix 40 mg twice daily for now. UTI: As above. A-fib: Rate controlled currently. Hold off on Coreg for now. On last discharge it seems Eliquis was stopped given borderline anemia at the time. For now we will continue to hold. Will discuss in detail with the patient prior to discharge and restart if needed. Telemetry. Having episodes of nonsustained V. tach. Severe physical deconditioning Protein energy malnutrition. Goals of care discussion: Had extensive goals of care discussion at bedside with family including patient's DPOA and son. We discussed that patient's has severe physical deconditioning, malnutrition which has been ongoing for many months. On confirming with intermediate patient is not doing much even with physical therapy at intermediate. Over hospital as well patient continues to show severe poor motivation. We discussed that unfortunately this all makes patient at a higher risk of more infections, worsening respiratory status and is also the reason for him developing ileus. We discussed currently patient has been severe sepsis and metabolic encephalopathy. As per family they had discussed about this in detail and they will want patient to have better quality of life than quantity of life and they agree if patient does not improve within next 24 to 48 hours they would like to go ahead with hospice. Plan to continue with current treatment for now. Plan to discharge back to intermediate with hospice once medically stable. CODE STATUS: Discussed in detail with the patient. He confirms with recent changes CODE STATUS to DNI/DNR on last admission. Is agreeable for ICU admi ssion and vasopressors if needed. His Ms. Sanchez will be the DPOA. N.p.o. Protonix OPD prophylaxis Heparin for DVT prophylaxis. Continue care at ICU. Patient is critically sick Attestations Medical Necessity Statement*: Needs to be in hospital for management of encephalopathy, hypernatremia Coding Level of Care Code Acute Code for Chg Fwd Diagnoses Acute respiratory failure with hypoxia and hypercapnia J96.01; J96.02 Pneumonia J18.9 Metabolic encephalopathy G93.41 Hyperammonemia E72.20 Ileus K56.7 Shock R57.9 Acute hyponatremia E87.1 UTI (urinary tract infection) N39.0 COVID-19 U07.1 Protein-energy malnutrition E46 Physical deconditioning R53.81 Abdominal pain R10.9 Nausea and vomiting R11.2 Hypoxia R09.02 Hyperkalemia E87.5 Goals of care, counseling/discussion Z71.89
--- NOTE | 2022-12-29 14:28 | PC.NURSE ---
RT and this nurse performed oral care and placed Optifoam dressing to patients buccal region to prevent skin brake down from Biap and NG tube. Patient remains non-responsive to painful stimuli at this time and continues to grunt. See documentation for vitals and MAR for medication administration.
[2022-12-29] MEDS: dextrose 5% 1,000 ML 125 ML IV (16:41)
[2022-12-29 20:21] LABS: Glucose Point of Care 182 mg/dL (70-110)
[2022-12-30] VITALS (33 sets, daily range): BP systolic 73–109; BP diastolic 43–78; PULSE 86–124; RESP 20–50; TEMP 36.4–37.8; O2SAT 88–100; BMI 39.4
[2022-12-30] MEDS: dextrose 5% 1,000 ML 125 ML IV ×2 (00:44→10:08)
[2022-12-30] MEDS: meropenem 1,000 MG in sodium chloride 0.9% (plus) 50 ML 100 MG IV ×3 (00:44→17:04)
[2022-12-30] MEDS: levalbuterol 0.63 mg/3 mL Neb INHALATION ×4 (01:13→19:47)
[2022-12-30] MEDS: ipratropium 0.5 mg/2.5 mL Neb INHALATION ×4 (01:13→19:47)
[2022-12-30] MEDS: metoclopramide 5 mg/mL SDV 2 mL 10 MG IVP ×4 (01:57→20:15)
[2022-12-30 01:59] LABS: Glucose Point of Care 154 mg/dL (70-110)
[2022-12-30 02:56] LABS: Basophils % 0.1 %; Eosinophils % 0.1 %; Hematocrit 26.4 % (42.0-52.0); Hemoglobin 8.3 g/dL (11.7-16.6); Lymphocytes # 0.9 10^3/uL (0.8-4.8); Lymphocytes % 6.3 %; Mean Corpuscular HGB Conc 31.4 g/dL (30.0-36.0); Mean Corpuscular Hemoglobin 32.3 pg (28.0-34.0); Mean Corpuscular Volume 102.7 fl (80-94); Mean Platelet Volume 12.7 fL (7.4-10.4); Monocytes # 0.5 10^3/uL (0.2-0.9); Monocytes % 3.6 %; Neutrophils # 12.74 10^3/uL (1.8-7.7); Neutrophils % 89.3 %; Nucleated Red Blood Cells % 0.3 %; Platelet Count 83 10^3/cmm (130-400); Red Blood Count 2.57 10^6/uL (4.1-5.3); White Blood Count 14.3 10^3/uL (4.0-10.0)
[2022-12-30 03:22] LABS: Alanine Aminotransferase 80 U/L (0-41); Albumin Level 3.1 g/dL (3.5-5.2); Alkaline Phosphatase 133 U/L (40-130); Anion Gap 7.9 (5-19); Aspartate Amino Transferase 96 U/L (0-40); Blood Urea Nitrogen 19 mg/dL (8-23); Calcium 7.7 mg/dL (8.5-10.5); Carbon Dioxide 28 mmol/L (22-29); Chloride 108 mmol/L (98-107); Globulin 1.9 g/dL (1.3-4.6); Glomerular Filtration Rate 218.7 mL/min (90-130); Glucose 138 mg/dL (65-115); Osmolality Calculated 294 mOsm/kg (285-295); Potassium 3.9 mmol/L (3.5-5.1); Sodium 140 mmol/L (136-145); Total Bilirubin 0.7 mg/dL (0.15-1.2)
[2022-12-30] MEDS: pantoprazole 40 mg SDV IVP ×2 (04:42→17:04)
[2022-12-30 09:25] LABS: Glucose Point of Care 148 mg/dL (70-110)
[2022-12-30] MEDS: dexamethasone 10 mg/mL INJ 6 MG IVP (10:06)
[2022-12-30] MEDS: insulin lispro 100 unit/1 mL SUBCUT ×3 (10:07→20:30)
--- NOTE | 2022-12-30 10:53 | PC.SOCIAL ---
IMM update IMM updated, copy pg 2 left at bedside. Initialled, dated, timed, and placed in chart.
[2022-12-30 13:22] LABS: Glucose Point of Care 148 mg/dL (70-110)
[2022-12-30] MEDS: vancomycin 1,500 MG/300 ML PIGGYBACK 200 MG IV (13:39)
--- NOTE | 2022-12-30 17:12 | P.PN_ITS ---
Subjective Subjective: Patient was seen and examined this morning, currently he opens eyes spontaneously as well as to verbal command.Hypernatremia has resolved. family currently want to continue with current medical management. Medications: Medication Review Details: Generic Name Dose Route Start Last Admin Trade Name Aura PRN Reason Stop Dose Admin Acetaminophen 650 mg 12/21/22 18:35 12/28/22 18:06 Acetaminophen 32 5 Mg Tablet PO 650 mg Q6H PRN Administration Mild/Mod Pain Or Temp >/= 101 Dexamethasone 6 mg 12/22/22 10:00 12/29/22 09:05 Dexamethasone 10 Mg/Ml Inj IVP 6 mg Q24H SAVANAH Administration Docusate Sodium 100 mg 12/21/22 18:35 12/25/22 08:48 Docusate Sodium 100 Mg Capsule PO 100 mg BID SAVANAH Administration Furosemide 40 mg 12/25/22 08:30 12/26/22 08:19 Furosemide 10 Mg /Ml Sdv 4ml IVP 40 mg Q12H SAVANAH Administration Heparin Sodium (Po rcine) 5,000 unit 12/21/22 20:00 12/25/22 20:24 Heparin 5,000 Un it/Ml Inj 1 Ml SUBCUT 5,000 unit Q12H SAVANAH Administration Meropenem 1,000 mg / Sodium 50 mls @ 100 mls/ hr 12/21/22 17:30 12/29/22 10:08 Chloride IV Infused Q8H SAVANAH Infusion Protocol Norepinephrine Bit artrate 8 mg 508 mls @ 0 mls/h r 12/23/22 04:30 12/24/22 06:06 / Dextrose IV 0 mcg/min .Q0M SAVANAH 0 mls/hr Titration Protocol Per Protocol Dextrose 1,000 mls @ 125 m ls/hr 12/28/22 20:15 12/29/22 09:05 D5w IV 75 mls/hr .Q8H SAVANAH Administration Vancomycin/PEG/NAD A/Lysine/Water 1,500 mg in 300 m ls @ 200 mls/hr 12/29/22 01:00 12/29/22 03:51 Vancocin IV Infused Q36H SAVANAH Infusion Insulin Human Lisp ro 0 unit 12/28/22 20:30 12/29/22 08:02 Insulin Lispro 1 00 Unit/1 Ml SUBCUT 2 unit Q6H SAVANAH Administration Protocol Ipratropium Bromid e 0.5 mg 12/21/22 20:00 12/29/22 09:10 Ipratropium 0.5 Mg/2.5 Ml Neb INHALATION 0.5 mg Q6H.RESP SAVANAH Administration Lactulose 200 gm 12/25/22 08:30 12/27/22 09:00 Lactulose Oral L iq 20 Gm/30 Ml Udc [place] 200 gm Q6H SAVANAH Administration Lactulose 20 gm 12/27/22 14:00 12/29/22 08:02 Lactulose Oral L iq 20 Gm/30 Ml Udc PO 20 gm Q6H SAVANAH Administration Levalbuterol HCl 0.63 mg 12/21/22 20:00 12/29/22 09:10 Levalbuterol 0.6 3 Mg/3 Ml Neb INHALATION 0.63 mg Q6H.RESP SAVANAH Administration Metoclopramide HCl 10 mg 12/24/22 14:00 12/29/22 08:02 Metoclopramide 5 Mg/Ml Sdv 2 Ml IVP 10 mg Q6H SAVANAH Administration Metoprolol Tartrat e 5 mg 12/26/22 10:22 12/29/22 08:58 Metoprolol Tartr ate 1 Mg/1 Ml Sdv 5 Ml IVP 5 mg Q4H PRN Administration Hr more than 110 bpm Ondansetron HCl 4 mg 12/21/22 18:35 12/24/22 12:26 Ondansetron 2 Mg /Ml Sdv 2 Ml IVP 4 mg Q6H PRN Administration vomiting, or N/V if npo Pantoprazole Sodiu m 40 mg 12/25/22 17:15 12/29/22 05:21 Pantoprazole 40 Mg Sdv IVP 40 mg Q12H SAVANAH Administration Quetiapine Fumarat e 100 mg 12/23/22 21:00 12/23/22 20:43 Quetiapine 100 M g Tablet PO 100 mg BEDTIME SAVANAH Administration Rifaximin 550 mg 12/26/22 10:30 12/29/22 09:04 Rifaximin 550 Mg Tablet PO 550 mg BID SAVANAH Administration Protocol Sertraline HCl 50 mg 12/24/22 06:00 12/24/22 05:27 Sertraline 50 Mg Tablet PO Not Given QAM SAVANAH Vitals/I&O/Wt Last Vital Signs Temp 97.5 F L 12/30/22 08:00 Pulse 93 05/24/23 15:00 Resp 21 H 12/30/22 15:00 BP 102/78 12/30/22 15:00 Pulse Ox 97 12/30/22 15:14 O2 Del Method BiPAP 12/30/22 15:00 O2 Flow Rate 10 12/30/22 14:00 FiO2 30 12/30/22 15:14 12/30/22 12/30/22 12/30/22 06:59 14:59 22:59 Intake Total 2393.833 / 5172.833 2550 / 2550 Output Total 1250 / 0 Balance 1143.833 / 3122.833 2550 / 2550 Weight last 48 hrs Weight 104.326 kg Weight 96.751 kg Physical Exam HENMT: COMMON NORMALS: normocephalic and atraumatic HEAD & SCALP: normocephalic and atraumatic Resp: COMMON NORMALS: clear to auscultation bilaterally AUSCULTATION: clear to auscultation bilaterally Cardio: COMMON NORMALS: regular rate, regular rhythm, S1 normal heart sound present, S2 normal heart sound present, No gallops present (Cardio), No murmurs present (Cardio), No rub (Cardio) and Peripheral pulses 2+ throughout RATE: regular rate RHYTHM: regular rhythm HEART SOUNDS: S1 normal heart sound present and S2 normal heart sound present PERIPHERAL PULSES: Peripheral pulses 2+ throughout GI: COMMON NORMALS: Soft to palpation and no masses PALPATION: Yes Soft to palpation RECTAL EXAM: Yes deferred OTHER: hypoactive BS Present Extremity: COMMON NORMALS: no clubbing, cyanosis or edema and no pedal edema Urinary Catheter Management: Nuñez: Cath Placed During This Visit: yes Reason for Continuing Indwelling Catheter: Accurate Measurement of Urinary Output in Critically Ill Patients Urinary Catheter Date of Insertion: 12/21/22 Data 12/30/22 02:36 12/30/22 02:36 A&P Assessment and plan (1) Acute respiratory failure with hypoxia and hypercapnia: (2) Pneumonia: (3) Metabolic encephalopathy: (4) Hyperammonemia: (5) Ileus: (6) Shock: (7) Acute hyponatremia: (8) UTI (urinary tract infection): (9) COVID-19: (10) Protein-energy malnutrition: (11) Physical deconditioning: (12) Abdominal pain: (13) Nausea and vomiting: (14) Hypoxia: (15) Hyperkalemia: (16) Goals of care, counseling/discussion: Plan 62-year-old with past medical history of CAD, severe depression with history of suicidal ideation, chronic back pain with most recent history of small bowel obstruction requiring ex lap, ESBL E. coli UTI and pneumonia, hypertension who [facility] from the [facility] with concerns for abdominal pain, nausea and vomiting and found to be slightly more hypoxic than baseline and hypotensive not responsive to fluid challenges. Septic shock: Resolved. Sepsis: Ruled in. Present on admission. Target organ dysfunction of renal d isorder with hyperkalemia and hyponatremia along with poor mentation from metabolic encephalopathy. Keep mean artery pressure 65. Follow-up culture results. Urine culture growing E. coli. Sputum culture growing ESBL E. coli and MRSA. Continue with IV meropenem and vancomycin Nuñez catheterization. Strict input output charting. Metabolic encephalopathy: Most likely in setting of hyperammonia levels, hypercapnic respiratory failure, septic shock, hyponatremia. Cannot rule out secondary to severe protein energy malnutrition and deconditioning. Hyperammonemia: Hold off on lactulose through NG tube. Start on rectal lactulose. Target 2-3 good bowel movements in 24 hours. Repeat ammonia levels in a.m. Hypoxic and hypercapnic respiratory failure: Most likely in setting of metabolic encephalopathy along with pneumonia. COVID-19 positive for more than 10 days. No need for isolation. Dexamethasone 6 mg IV daily. Aggressive pulmonary toilet. Start on chest vest today. BiPAP ventilation keeping saturation over 90%. Repeat ABG in AM. Antibiotic as above. Oxygen supplementation keeping saturation over 90%. Ipratropium, Xopenex every 6 hours, budesonide twice daily for now. Out of bed to chair when possible. Hyponatremia: Resolved. Baseline sodium seems to be around more than 140. Improved to 134 today. Mixed etiology. Could be secondary to hypovolemia the patient is third spacing given hypoalbuminemia. Continue with IV Lasix. Repeat BMP every 12 hours. Hypermagnesemia: Most likely in setting of milk of magnesia along with no bowel movements. Hold off on any further milk of magnesia. Monitor magnesium levels daily. Hyperkalemia: Resolved. Ileus: Resolved. Nausea and vomiting/abdominal pain: Patient has a history of small bowel obstruction post ex lap. Appreciate surgical recommendations. Continue with the lactulose as above. Maintain NG tube. Monitor electrolytes. N.p.o. for now. Anemia: No active signs of bleeding. Hemoglobin down to 7.2. Most likely in setting of malnutrition. Transfuse 1 unit of PRBC. Repeat CBC in AM. IV Protonix 40 mg twice daily for now. UTI: As above. A-fib: Rate controlled currently. Hold off on Coreg for now. On last discharge it seems Eliquis was stopped given borderline anemia at the time. For now we will continue to hold. Will discuss in detail with the patient prior to discharge and restart if needed. Telemetry. Having episodes of nonsustained V. tach. Severe physical deconditioning Protein energy malnutrition. Goals of care discussion: Had extensive goals of care discussion at bedside with family including patient's DPOA and son. We discussed that patient's has severe physical deconditioning, malnutrition which has been ongoing for many months. On confirming with [facility] patient is not doing much even with physical therapy at [facility]. Over hospital as well patient continues to show severe poor motivation. We discussed that unfortunately this all makes patient at a higher risk of more infections, worsening respiratory status and is also the reason for him developing ileus. We discussed currently patient has been severe sepsis and metabolic encephalopathy. As per family they had discussed about this in detail and they will want patient to have better quality of life than quantity of life and they agree if patient does not improve within next 24 to 48 hours they would like to go ahead with hospice. Plan to continue with current treatment for now. Plan to discharge back to [facility] with hospice once medically stable. CODE STATUS: Discussed in detail with the patient. He confirms with recent changes CODE STATUS to DNI/DNR on last admission. Is agreeable for ICU admission and vasopressors if needed. His Ms. Sanchez will be the DPOA. N.p.o. Protonix OPD prophylaxis Heparin for DVT prophylaxis. Continue care at ICU. Patient is critically sick Attestations Medical Necessity Statement*: needs to be in hospital for the management of encephalopathy. Coding Level of Care Code Acute Code for Chg Fwd Diagnoses Acute respiratory failure with hypoxia and hypercapnia J96.01; J96.02 Pneumonia J18.9 Metabolic encephalopathy G93.41 Hyperammonemia E72.20 Ileus K56.7 Shock R57.9 Acute hyponatremia E87.1 UTI (urinary tract infection) N39.0 COVID-19 U07.1 Protein-energy malnutrition E46 Physical deconditioning R53.81 Abdominal pain R10.9 Nausea and vomiting R11.2 Hypoxia R09.02 Hyperkalemia E87.5 Goals of care, counseling/discussion Z71.89
--- NOTE | 2022-12-30 18:20 | PC.NURSE ---
Shift summary: Pt has opened eyes and responded to yes/ no questions by nodding his head about 3 times today. He is very edematous every where. His face, around his eyes, his scrotum. His arms have opened areas weeping fluid continuously. He has remained afebrile this shift. He has remained in sinus rhythm with his heart rate 90-105. BP MAP lower this evening , Levophed just restarted. D5W discontinued tis am then restarted at a lower rate of 75ml/hr this afternoon. Pt tolerating tube feeding and H2O flushes. He had adequate urine output of 750ml/hr. Rectal tube remains in place, minimal output. He was incontinent once, this am, around the tube. His bottom is reddened and excoriated. was in to visit today, did not want pt to transfer out today for hospice, wanted to wait longer.
[2022-12-30 20:23] LABS: Glucose Point of Care 184 mg/dL (70-110)
[2022-12-31] VITALS (33 sets, daily range): BP systolic 80–124; BP diastolic 54–79; PULSE 90–120; RESP 17–28; TEMP 37.2–37.7; O2SAT 92–100
[2022-12-31] MEDS: metoclopramide 5 mg/mL SDV 2 mL 10 MG IVP ×4 (01:26→20:52)
[2022-12-31] MEDS: meropenem 1,000 MG in sodium chloride 0.9% (plus) 50 ML 100 MG IV ×3 (01:26→17:47)
[2022-12-31] MEDS: dextrose 5% 1,000 ML 75 ML IV (01:36)
[2022-12-31] MEDS: levalbuterol 0.63 mg/3 mL Neb INHALATION ×4 (01:58→20:15)
[2022-12-31] MEDS: ipratropium 0.5 mg/2.5 mL Neb INHALATION ×4 (01:58→20:15)
[2022-12-31 02:08] LABS: Glucose Point of Care 137 mg/dL (70-110)
[2022-12-31 03:16] LABS: Basophils % 0.1 %; Eosinophils % 0.1 %; Hematocrit 26.9 % (42.0-52.0); Hemoglobin 8.5 g/dL (11.7-16.6); Lymphocytes # 0.7 10^3/uL (0.8-4.8); Lymphocytes % 4.7 %; Mean Corpuscular HGB Conc 31.6 g/dL (30.0-36.0); Mean Corpuscular Hemoglobin 32.6 pg (28.0-34.0); Mean Corpuscular Volume 103.1 fl (80-94); Monocytes # 0.5 10^3/uL (0.2-0.9); Monocytes % 3.6 %; Neutrophils # 13.71 10^3/uL (1.8-7.7); Nucleated Red Blood Cells % 0.2 %; Platelet Count 89 10^3/cmm (130-400); Red Blood Count 2.61 10^6/uL (4.1-5.3); Red Cell Distribution Width 16.3 % (12.1-15.1)
[2022-12-31 03:44] LABS: Alanine Aminotransferase 68 U/L (0-41); Alkaline Phosphatase 150 U/L (40-130); Anion Gap 9.2 (5-19); Aspartate Amino Transferase 54 U/L (0-40); Blood Urea Nitrogen 16 mg/dL (8-23); Calcium 7.7 mg/dL (8.5-10.5); Carbon Dioxide 28 mmol/L (22-29); Chloride 102 mmol/L (98-107); Globulin 2.3 g/dL (1.3-4.6); Glomerular Filtration Rate 304.8 mL/min (90-130); Glucose 134 mg/dL (65-115); Osmolality Calculated 283 mOsm/kg (285-295); Potassium 4.2 mmol/L (3.5-5.1); Sodium 135 mmol/L (136-145); Total Bilirubin 0.7 mg/dL (0.15-1.2); Total Protein 5.3 g/dL (6.6-8.7)
[2022-12-31] MEDS: pantoprazole 40 mg SDV IVP ×2 (05:09→17:46)
[2022-12-31 07:42] LABS: Glucose Point of Care 153 mg/dL (70-110)
[2022-12-31] MEDS: insulin lispro 100 unit/1 mL SUBCUT ×2 (07:58→14:37)
[2022-12-31] MEDS: dexamethasone 10 mg/mL INJ 6 MG IVP (10:43)
[2022-12-31 12:20] LABS: Glucose Point of Care 129 mg/dL (70-110)
[2022-12-31 14:37] LABS: Glucose Point of Care 168 mg/dL (70-110)
--- NOTE | 2022-12-31 17:26 | P.PN_ITS ---
Subjective Subjective: Patient was seen and examined this morning, currently he opens eyes, was also able to follow basic commands, patient is currently extremely weak, when asked to move his extremities he was unable to do so, hypernatremia has resolved. D5 water has been discontinued. Will reengage physical therapy. Overnight patient was requiring minimum of Levophed, he is also having low-grade fever with noted Tmax of 100. Medications: Medication Review Details: Generic Name Dose Route Start Last Admin Trade Name Freq PRN Reason Stop Dose Admin Acetaminophen 650 mg 12/21/22 18:35 12/28/22 18:06 Acetaminophen 32 5 Mg Tablet PO 650 mg Q6H PRN Administration Mild/Mod Pain Or Temp >/= 101 Dexamethasone 6 mg 12/22/22 10:00 12/31/22 10:43 Dexamethasone 10 Mg/Ml Inj IVP 6 mg Q24H SAVANAH Administration Docusate Sodium 100 mg 12/21/22 18:35 12/25/22 08:48 Docusate Sodium 100 Mg Capsule PO 100 mg BID SAVANAH Administration Furosemide 40 mg 12/25/22 08:30 12/26/22 08:19 Furosemide 10 Mg /Ml Sdv 4ml IVP 40 mg Q12H SAVANAH Administration Heparin Sodium (Po rcine) 5,000 unit 12/21/22 20:00 12/25/22 20:24 Heparin 5,000 Un it/Ml Inj 1 Ml SUBCUT 5,000 unit Q12H SAVANAH Administration Meropenem 1,000 mg / Sodium 50 mls @ 100 mls/ hr 12/21/22 17:30 12/31/22 16:32 Chloride IV Infused Q8H SAVANAH Infusion Protocol Norepinephrine Bit artrate 8 mg 508 mls @ 0 mls/h r 12/23/22 04:30 12/30/22 13:49 / Dextrose IV Infused .Q0M SAVANAH Titration Protocol Per Protocol Vancomycin/PEG/NAD A/Lysine/Water 1,500 mg in 300 m ls @ 200 mls/hr 12/29/22 01:00 12/30/22 15:25 Vancocin IV Infused Q36H SAVANAH Infusion Norepinephrine Bit artrate 4 mg 254 mls @ 0 mls/h r 12/30/22 18:15 12/31/22 00:30 / Dextrose IV 2 mcg/min .Q0M SAVANAH 7.62 mls/hr Titration Protocol Per Protocol Insulin Human Lisp ro 0 unit 12/28/22 20:30 12/31/22 14:37 Insulin Lispro 1 00 Unit/1 Ml SUBCUT 2 unit Q6H SAVANAH Administration Protocol Ipratropium Bromid e 0.5 mg 12/21/22 20:00 12/31/22 14:07 Ipratropium 0.5 Mg/2.5 Ml Neb INHALATION 0.5 mg Q6H.RESP SAVANAH Administration Levalbuterol HCl 0.63 mg 12/21/22 20:00 12/31/22 14:07 Levalbuterol 0.6 3 Mg/3 Ml Neb INHALATION 0.63 mg Q6H.RESP SAVANAH Administration Metoclopramide HCl 10 mg 12/24/22 14:00 12/31/22 14:37 Metoclopramide 5 Mg/Ml Sdv 2 Ml IVP 10 mg Q6H SAVANAH Administration Metoprolol Tartrat e 5 mg 12/26/22 10:22 12/29/22 18:33 Metoprolol Tartr ate 1 Mg/1 Ml Sdv 5 Ml IVP 5 mg Q4H PRN Administration Hr more than 110 bpm Ondansetron HCl 4 mg 12/21/22 18:35 12/24/22 12:26 Ondansetron 2 Mg /Ml Sdv 2 Ml IVP 4 mg Q6H PRN Administration vomiting, or N/V if npo Pantoprazole Sodiu m 40 mg 12/25/22 17:15 12/31/22 05:09 Pantoprazole 40 Mg Sdv IVP 40 mg Q12H SAVANAH Administration Quetiapine Fumarat e 100 mg 12/23/22 21:00 12/23/22 20:43 Quetiapine 100 M g Tablet PO 100 mg BEDTIME SAVANAH Administration Rifaximin 550 mg 12/26/22 10:30 12/31/22 08:01 Rifaximin 550 Mg Tablet PO 550 mg BID SAVANAH Administration Protocol Sertraline HCl 50 mg 12/24/22 06:00 12/24/22 05:27 Sertraline 50 Mg Tablet PO Not Given QAM SAVANAH Vitals/I&O/Wt Last Vital Signs Temp 99.1 F 12/31/22 12:00 Pulse 94 12/31/22 14:07 Resp 19 H 12/31/22 14:07 BP 109/74 12/31/22 12:00 Pulse Ox 96 12/31/22 14:07 O2 Del Method BiPAP 12/31/22 14:07 O2 Flow Rate 35 12/31/22 09:00 FiO2 35 12/31/22 14:07 12/31/22 12/31/22 12/31/22 06:59 14:59 22:59 Intake Total 690.674 / 5186.643 0 / 0 50 / 50 Output Total 550 / 1900 150 / 150 Balance 140.674 / 3286.643 -150 / -150 50 / -100 Weight last 48 hrs Weight 103.873 kg Weight 104.326 kg Physical Exam HENMT: COMMON NORMALS: normocephalic and atraumatic HEAD & SCALP: normocephalic and atraumatic Resp: OTHER: Coarse breath sounds Cardio: COMMON NORMALS: regular rate, regular rhythm, S1 normal heart sound present, S2 normal heart sound present, No gallops present (Cardio), No murmurs present (Cardio), No rub (Cardio) and Peripheral pulses 2+ throughout RATE: regular rate RHYTHM: regular rhythm HEART SOUNDS: S1 normal heart sound present and S2 normal heart sound present PERIPHERAL PULSES: Peripheral pulses 2+ throughout GI: COMMON NORMALS: Soft to palpation and no masses PALPATION: Yes Soft to palpation RECTAL EXAM: Yes deferred OTHER: hypoactive BS Present Extremity: COMMON NORMALS: no clubbing, cyanosis or edema and no pedal edema Urinary Catheter Management: Nuñez: Cath Placed During This Visit: yes Reason for Continuing Indwelling Catheter: Accurate Measurement of Urinary Output in Critically Ill Patients Urinary Catheter Date of Insertion: 12/21/22 Data 12/31/22 02:30 12/31/22 02:30 A&P Assessment and plan (1) Acute respiratory failure with hypoxia and hypercapnia: (2) Pneumonia: (3) Metabolic encephalopathy: (4) Hyperammonemia: (5) Ileus: (6) Shock: (7) Acute hyponatremia: (8) UTI (urinary tract infection): (9) COVID-19: (10) Protein-energy malnutrition: (11) Physical deconditioning: (12) Abdominal pain: (13) Nausea and vomiting: (14) Hypoxia: (15) Hyperkalemia: (16) Goals of care, counseling/discussion: Plan 62-year-old with past medical history of CAD, severe depression with history of suicidal ideation, chronic back pain with most recent history of small bowel obstruction requiring ex lap, ESBL E. coli UTI and pneumonia, hypertension who presented from the half-way with concerns for abdominal pain, nausea and vomiting and found to be slightly more hypoxic than baseline and hypotensive not responsive to fluid challenges. Septic shock: Resolved. Sepsis: Ruled in. Present on admission. Target organ dysfunction of renal disorder with hyperkalemia and hyponatremia along with poor mentation from metabolic encephalopathy. Keep mean artery pressure 65. Follow-up culture results. Urine culture growing E. coli. Sputum culture growing ESBL E. coli and MRSA. Continue with IV meropenem and vancomycin Nuñez catheterization. Strict input output charting. Metabolic encephalopathy: Most likely in setting of hyperammonia levels, hypercapnic respiratory failure, septic shock, hyponatremia. Cannot rule out secondary to severe protein energy malnutrition and deconditioning. Hyperammonemia: Hold off on lactulose through NG tube. Start on rectal lactulose. Target 2-3 good bowel movements in 24 hours. Repeat ammonia levels in a.m. Hypoxic and hypercapnic respiratory failure: Most likely in setting of metabolic encephalopathy along with pneumonia. COVID-19 positive for more than 10 days. No need for isolation. Dexamethasone 6 mg IV daily. Aggressive pulmonary toilet. Start on chest vest today. BiPAP ventilation keeping saturation over 90%. Repeat ABG in AM. Antibiotic as above. Oxygen supplementation keeping saturation over 90%. Ipratropium, Xopenex every 6 hours, budesonide twice daily for now. Out of bed to chair when possible. Hyponatremia: Resolved. Baseline sodium seems to be around more than 140. Improved to 134 today. Mixed etiology. Could be secondary to hypovolemia the patient is third spacing given hypoalbuminemia. Continue with IV Lasix. Repeat BMP every 12 hours. Hypermagnesemia: Most likely in setting of milk of magnesia along with no bowel movements. Hold off on any further milk of magnesia. Monitor magnesium levels daily. Hyperkalemia: Resolved. Ileus: Resolved. Nausea and vomiting/abdominal pain: Patient has a history of small bowel obstruction post ex lap. Appreciate surgical recommendations. Continue with the lactulose as above. Maintain NG tube. Monitor electrolytes. N.p.o. for now. Anemia: No active signs of bleeding. Hemoglobin down to 7.2. Most likely in setting of malnutrition. Transfuse 1 unit of PRBC. Repeat CBC in AM. IV Protonix 40 mg twice daily for now. UTI: As above. A-fib: Rate controlled currently. Hold off on Coreg for now. On last discharge it seems Eliquis was stopped given borderline anemia at the time. For now we will continue to hold. Will discuss in detail with the patient prior to discharge and restart if needed. Telemetry. Having episodes of nonsustained V. tach. Severe physical deconditioning Protein energy malnutrition. Goals of care discussion: Had extensive goals of care discussion at bedside with family including patient's DPOA and son. We discussed that patient's has severe physical deconditioning, malnutrition wh ich has been ongoing for many months. On confirming with half-way patient is not doing much even with physical therapy at half-way. Over hospital as well patient continues to show severe poor motivation. We discussed that unfortunately this all makes patient at a higher risk of more infections, worsening respiratory status and is also the reason for him developing ileus. We discussed currently patient has been severe sepsis and metabolic encephalopathy. As per family they had discussed about this in detail and they will want patient to have better quality of life than quantity of life and they agree if patient does not improve within next 24 to 48 hours they would like to go ahead with hospice. Plan to continue with current treatment for now. Plan to discharge back to half-way with hospice once medically stable. CODE STATUS: Discussed in detail with the patient. He confirms with recent changes CODE STATUS to DNI/DNR on last admission. Is agreeable for ICU admission and vasopressors if needed. His Ms. Sanchez will be the DPOA. N.p.o. Protonix OPD prophylaxis Heparin for DVT prophylaxis. Continue care at ICU. Patient is critically sick Attestations Medical Necessity Statement*: Needs to be in hospital for management of sepsis. Coding Level of Care Code Acute Code for [facility] Fwd Diagnoses Acute respiratory failure with hypoxia and hypercapnia J96.01; J96.02 Pneumonia J18.9 Metabolic encephalopathy G93.41 Hyperammonemia E72.20 Ileus K56.7 Shock R57.9 Acute hyponatremia E87.1 UTI (urinary tract infection) N39.0 COVID-19 U07.1 Protein-energy malnutrition E46 Physical deconditioning R53.81 Abdominal pain R10.9 Nausea and vomiting R11.2 Hypoxia R09.02 Hyperkalemia E87.5 Goals of care, counseling/discussion Z71.89
--- NOTE | 2022-12-31 18:31 | PC.NURSE ---
Shift SUmmary: Uneventful shift. Patient rested in bed throughout the day. Will answer yes/no questions by shaking head, will track you with his eyes, WIll not follow commands. Rectal tube removed due to no output through rectal tube and solid fecal matter leaking around tube. Total urine output has been 1025 mL.
[2022-12-31 20:53] LABS: Glucose Point of Care 130 mg/dL (70-110)
[2023-01-01] VITALS (25 sets, daily range): BP systolic 113–133; BP diastolic 61–88; PULSE 91–114; RESP 12–30; TEMP 36.9–37.7; O2SAT 95–100
[2023-01-01 01:16] LABS: Vancomycin Trough 8.4 ug/mL (10-15)
[2023-01-01] MEDS: meropenem 1,000 MG in sodium chloride 0.9% (plus) 50 ML 100 MG IV (01:31)
[2023-01-01] MEDS: metoclopramide 5 mg/mL SDV 2 mL 10 MG IVP (01:32)
--- NOTE | 2023-01-01 01:41 | PC.PHAR ---
Vanc trough dose change Goal trough: 10-20 Vanc trough: 8.4 Plan: Adjust dose to 1250 mg Q24H Vanc trough to be scheduled for prior to 4th dose and will reassess
[2023-01-01] MEDS: vancomycin 1,250 MG/250 ML PIGGYBACK 250 MG IV (01:45)
[2023-01-01 02:09] LABS: Glucose Point of Care 98 mg/dL (70-110)
[2023-01-01] MEDS: ipratropium 0.5 mg/2.5 mL Neb INHALATION ×2 (02:22→08:45)
[2023-01-01] MEDS: levalbuterol 0.63 mg/3 mL Neb INHALATION ×2 (02:22→08:45)
[2023-01-01] MEDS: pantoprazole 40 mg SDV IVP ×2 (05:10→09:12)
[2023-01-01 05:15] LABS: Basophils % 0.1 %; Eosinophils # 0.1 10^3/uL (0.0-0.8); Hematocrit 25.4 % (42.0-52.0); Hemoglobin 8.1 g/dL (11.7-16.6); Lymphocytes # 0.7 10^3/uL (0.8-4.8); Lymphocytes % 6.6 %; Mean Corpuscular HGB Conc 31.9 g/dL (30.0-36.0); Mean Corpuscular Hemoglobin 32.4 pg (28.0-34.0); Mean Corpuscular Volume 101.6 fl (80-94); Mean Platelet Volume 13.5 fL (7.4-10.4); Monocytes # 0.6 10^3/uL (0.2-0.9); Monocytes % 5.6 %; Neutrophils % 86.1 %; Nucleated Red Blood Cells % 0 %; Platelet Count 85 10^3/cmm (130-400); Red Cell Distribution Width 15.8 % (12.1-15.1); White Blood Count 10.8 10^3/uL (4.0-10.0)
[2023-01-01 05:34] LABS: Alanine Aminotransferase 54 U/L (0-41); Albumin Level 2.8 g/dL (3.5-5.2); Alkaline Phosphatase 138 U/L (40-130); Anion Gap 10.3 (5-19); Aspartate Amino Transferase 47 U/L (0-40); Blood Urea Nitrogen 11 mg/dL (8-23); Calcium 7.8 mg/dL (8.5-10.5); Carbon Dioxide 27 mmol/L (22-29); Chloride 102 mmol/L (98-107); Globulin 2.2 g/dL (1.3-4.6); Glomerular Filtration Rate 486.7 mL/min (90-130); Glucose 100 mg/dL (65-115); Osmolality Calculated 279 mOsm/kg (285-295); Potassium 4.3 mmol/L (3.5-5.1); Sodium 135 mmol/L (136-145); Total Bilirubin 0.5 mg/dL (0.15-1.2)
[2023-01-01 07:16] LABS: Glucose Point of Care 119 mg/dL (70-110)
[2023-01-01] MEDS: meropenem 1,000 MG in sodium chloride 0.9% (plus) 50 ML 50 MG IV (09:15)
[2023-01-01] MEDS: dexamethasone 10 mg/mL INJ 6 MG IVP (09:16)
--- NOTE | 2023-01-01 09:39 | PC.NURSE ---
Patient is more alert this morning. He can say his name, where he is, and the year. After orientation questioning, Patient told the nurse to stop. Nurse asked if he meant to stop what we are doing and he shook his head yes. Nurse told patient that if we stop what we are doing you will likely , do you understand that ? THe patient said yes. The patient then said stop, i want out . The patient is very hard to understand, he can speak in whispers only and is very hoarse. THough he is communicating, we are limited to mostly yes or no questions with great struggle to say phrases. We are unable to have a conversation to determine if patient fully understands. Patient also has been unresponsive or confused for much of his stay. Nurse explained to the patient we want to respect his wishes, but also that due to his mental state and difficulty communicating that his is involved in making these decisions as well and that i will call his to see if she can come in to discuss this further. Nurse called Laura and described the above noted conversation with her. SHe said her car is broke down and she is unable to come in, but will try to find a ride to town. Nurse updated Dr martinez on patient statements.
--- NOTE | 2023-01-01 09:55 | PC.SOCIAL ---
IMM update IMM updated, copy pg 2 left at bedside. Initialled, dated, timed, and placed in chart.
--- NOTE | 2023-01-01 10:23 | P.PN_ITS ---
Subjective Subjective: Patient was seen and examined this morning, currently he opens eyes, much more alert awake and oriented today, he is following commands, but unfortunately given his overall poor prognosis, family has decided to make patient comfort care. Medications: Medication Review Details: Generic Name Dose Route Start Last Admin Trade Name Aura PRN Reason Stop Dose Admin Acetaminophen 650 mg 12/21/22 18:35 12/28/22 18:06 Acetaminophen 32 5 Mg Tablet PO 650 mg Q6H PRN Administration Mild/Mod Pain Or Temp >/= 101 Dexamethasone 6 mg 12/22/22 10:00 01/01/23 09:16 Dexamethasone 10 Mg/Ml Inj IVP 6 mg Q24H SAVANAH Administration Docusate Sodium 100 mg 12/21/22 18:35 12/25/22 08:48 Docusate Sodium 100 Mg Capsule PO 100 mg BID SAVANAH Administration Heparin Sodium (Po rcine) 5,000 unit 12/21/22 20:00 12/25/22 20:24 Heparin 5,000 Un it/Ml Inj 1 Ml SUBCUT 5,000 unit Q12H SAVANAH Administration Meropenem 1,000 mg / Sodium 50 mls @ 100 mls/ hr 12/21/22 17:30 01/01/23 09:15 Chloride IV 50 mls/hr Q8H SAVANAH Administration Protocol Norepinephrine Bit artrate 8 mg 508 mls @ 0 mls/h r 12/23/22 04:30 12/30/22 13:49 / Dextrose IV Infused .Q0M SAVANAH Titration Protocol Per Protocol Vancomycin/PEG/NAD A/Lysine/Water 1,250 mg in 250 m ls @ 250 mls/hr 01/01/23 02:00 01/01/23 02:45 Vancocin IV Infused Q24H SAVANAH Infusion Insulin Human Lisp ro 0 unit 12/28/22 20:30 01/01/23 09:09 Insulin Lispro 1 00 Unit/1 Ml SUBCUT Not Given Q6H SAVANAH Protocol Ipratropium Bromid e 0.5 mg 12/21/22 20:00 01/01/23 08:45 Ipratropium 0.5 Mg/2.5 Ml Neb INHALATION 0.5 mg Q6H.RESP SAVANAH Administration Levalbuterol HCl 0.63 mg 12/21/22 20:00 01/01/23 08:45 Levalbuterol 0.6 3 Mg/3 Ml Neb INHALATION 0.63 mg Q6H.RESP SAVANAH Administration Metoprolol Tartrat e 5 mg 12/26/22 10:22 12/29/22 18:33 Metoprolol Tartr ate 1 Mg/1 Ml Sdv 5 Ml IVP 5 mg Q4H PRN Administration Hr more than 110 bpm Ondansetron HCl 4 mg 12/21/22 18:35 12/24/22 12:26 Ondansetron 2 Mg /Ml Sdv 2 Ml IVP 4 mg Q6H PRN Administration vomiting, or N/V if npo Pantoprazole Sodiu m 40 mg 01/01/23 09:00 01/01/23 09:12 Pantoprazole 40 Mg Sdv IVP 40 mg DAILY SAVANAH Administration Quetiapine Fumarat e 100 mg 12/23/22 21:00 12/23/22 20:43 Quetiapine 100 M g Tablet PO 100 mg BEDTIME SAVANAH Administration Rifaximin 550 mg 12/26/22 10:30 01/01/23 09:14 Rifaximin 550 Mg Tablet PO 550 mg BID SAVANAH Administration Protocol Sertraline HCl 50 mg 12/24/22 06:00 12/24/22 05:27 Sertraline 50 Mg Tablet PO Not Given QAM SAVANAH Vitals/I&O/Wt Last Vital Signs Temp 99.4 F 01/01/23 04:00 Pulse 109 H 01/01/23 08:50 Resp 18 01/01/23 08:40 BP 119/74 01/01/23 06:00 Pulse Ox 98 01/01/23 08:48 O2 Del Method BiPAP 01/01/23 08:40 O2 Flow Rate 10 12/31/22 18:00 FiO2 30 01/01/23 08:48 12/31/22 01/01/23 01/01/23 22:59 06:59 14:59 Intake Total 1832 / 2549.63 786 / 3335.63 Output Total 1275 / 1425 550 / 1975 Balance 557 / 1124.63 236 / 1360.63 Weight last 48 hrs Weight 103.873 kg Weight 103.873 kg Physical Exam Narrative: Much more alert awake oriented today, follow basic commands HENMT: COMMON NORMALS: normocephalic and atraumatic HEAD & SCALP: normocephalic and atraumatic Resp: COMMON NORMALS: clear to auscultation bilaterally AUSCULTATION: clear to auscultation bilaterally OTHER: Coarse breath sounds Cardio: COMMON NORMALS: regular rate, regular rhythm, S1 normal heart sound present, S2 normal heart sound present, No gallops present (Cardio), No murmurs present (Cardio), No rub (Cardio) and Peripheral pulses 2+ throughout RATE: regular rate RHYTHM: regular rhythm HEART SOUNDS: S1 normal heart sound present and S2 normal heart sound present PERIPHERAL PULSES: Peripheral pulses 2+ throughout GI: COMMON NORMALS: Soft to palpation and no masses PALPATION: Yes Soft to palpation RECTAL EXAM: Yes deferred OTHER: hypoactive BS Present Extremity: COMMON NORMALS: no clubbing, cyanosis or edema and no pedal edema Urinary Catheter Management: Nuñez: Cath Placed During This Visit: yes Reason for Continuing Indwelling Catheter: Accurate Measurement of Urinary Output in Critically Ill Patients Urinary Catheter Date of Insertion: 12/21/22 Data 01/01/23 04:49 01/01/23 04:49 A&P Assessment and plan (1) Acute respiratory failure with hypoxia and hypercapnia: (2) Pneumonia: (3) Metabolic encephalopathy: (4) Hyperammonemia: (5) Ileus: (6) Shock: (7) Acute hyponatremia: (8) UTI (urinary tract infection): (9) COVID-19: (10) Protein-energy malnutrition: (11) Physical deconditioning: (12) Abdominal pain: (13) Nausea and vomiting: (14) Hypoxia: (15) Hyperkalemia: (16) Goals of care, counseling/discussion: (17) Comfort measures only status: Plan 62-year-old with past medical history of CAD, severe depression with history of suicidal ideation, chronic back pain with most recent history of small bowel obstruction requiring ex lap, ESBL E. coli UTI and pneumonia, hypertension who presented from the senior care with concerns for abdominal pain, nausea and vomiting and found to be slightly more hypoxic than baseline and hypotensive not responsive to fluid challenges. Septic shock: Resolved. Sepsis: Ruled in. Present on admission. Target organ dysfunction of renal disorder with hyperkalemia and hyponatremia along with poor mentation from metabolic encephalopathy. Keep mean artery pressure 65. Follow-up culture results. Urine culture growing E. coli. Sputum culture growing ESBL E. coli and MRSA. Continue with IV meropenem and vancomycin Nuñez catheterization. Strict input output charting. Metabolic encephalopathy: Most likely in setting of hyperammonia levels, hypercapnic respiratory failure, septic shock, hyponatremia. Cannot rule out secondary to severe protein energy malnutrition and deconditioning. Hyperammonemia: Hold off on lactulose through NG tube. Start on rectal lactulose. Target 2-3 good bowel movements in 24 hours. Repeat ammonia levels in a.m. Hypoxic and hypercapnic respiratory failure: Most likely in setting of metabolic encephalopathy along with pneumonia. COVID-19 positive for more than 10 days. No need for isolation. Dexamethasone 6 mg IV daily. Aggressive pulmonary toilet. Start on chest vest today. BiPAP ventilation keeping saturation over 90%. Repeat ABG in AM. Antibiotic as above. Oxygen supplementation keeping saturation over 90%. Ipratropium, Xopenex every 6 hours, budesonide twice daily for now. Out of bed to chair when possible. Hyponatremia: Resolved. Baseline sodium seems to be around more than 140. Improved to 134 today. Mixed etiology. Could be secondary to hypovolemia the patient is third spacing given hypoalbuminemia. Continue with IV Lasix. Repeat BMP every 12 hours. Hypermagnesemia: Most likely in setting of milk of magnesia along with no bowel movements. Hold off on any further milk of magnesia. Monitor magnesium levels daily. Hyperkalemia: Resolved. Ileus: Resolved. Nausea and vomiting/abdominal pain: Patient has a history of small bowel obstruction post ex lap. Appreciate surgical recommendations. Continue with the lactulose as above. Maintain NG tube. Monitor electrolytes. N.p.o. for now. Anemia: No active signs of bleeding. Hemoglobin down to 7.2. Most likely in setting of malnutrition. Transfuse 1 unit of PRBC. Repeat CBC in AM. IV Protonix 40 mg twice daily for now. UTI: As above. A-fib: Rate controlled currently. Hold off on Coreg for now. On last discharge it seems Eliquis was stopped given borderline anemia at the time. For now we will continue to hold. Will discuss in detail with the patient prior to discharge and restart if needed. Telemetry. Having episodes of nonsustained V. tach. Severe physical deconditioning Protein energy malnutrition. Currently on comfort care measures Attestations Medical Necessity Statement*: On comfort care Coding Level of Care Code Acute Code for [facility] Fwd Diagnoses Acute respiratory failure with hypoxia and hypercapnia J96.01; J96.02 Pneumonia J18.9 Metabolic encephalopathy G93.41 Hyperammonemia E72.20 Ileus K56.7 Shock R57.9 Acute hyponatremia E87.1 UTI (urinary tract infection) N39.0 COVID-19 U07.1 Protein-energy malnutrition E46 Physical deconditioning R53.81 Abdominal pain R10.9 Nausea and vomiting R11.2 Hypoxia R09.02 Hyperkalemia E87.5 Goals of care, counseling/discussion Z71.89 Comfort measures only status Z51.5
[2023-01-01] MEDS: glycopyrrolate 0.2 mg/mL SDV 2 mL IV (14:40)
--- NOTE | 2023-01-01 15:17 | PC.NURSE ---
Patient came to to bedside and after talking to the patient they have decided to proceed with comfort/hospice care. THey want to intiate comfort care today to give hospice time to set things up so they can go home tommorow. COmfort care orders received form Dr martinez. Patient transferred to private room [id number]. Patient's is at bedside. NUrse called patients son analy and let him know of new healthcare goals and being moved to room 263.
[2023-01-01 17:25] LABS: Glucose Point of Care 145 mg/dL (70-110)
[2023-01-01] MEDS: morphine 4 mg/mL SDV 1 mL IVP (17:31)
[2023-01-02 04:00] VITALS: BP 128/79; PULSE 108; RESP 15; TEMP 36.5; O2SAT 92
[2023-01-02] MEDS: morphine 4 mg/mL SDV 1 mL IVP (04:40)
[2023-01-02 08:00] VITALS: BP 123/83; PULSE 111; RESP 18; TEMP 36.1; O2SAT 90
--- NOTE | 2023-01-02 09:37 | P.DS_ITS ---
Discharge Providers Date of Admission: 12/21/22 18:35 Date of Discharge: January 02, 2023 Attending Provider at Admission: Lane Davison MD Attending Provider at Discharge: Eder Manzano MD Primary Care Provider: DARSHANA Gallo Diagnoses at Discharge Discharge Diagnosis (1) Acute respiratory failure with hypoxia and hypercapnia: Status: Acute (2) Pneumonia: Status: Acute (3) Metabolic encephalopathy: Status: Acute (4) Hyperammonemia: Status: Acute (5) Ileus: Status: Acute (6) Shock: Status: Acute (7) Acute hyponatremia: Status: Acute (8) UTI (urinary tract infection): Status: Acute (9) COVID-19: Status: Acute (10) Protein-energy malnutrition: Status: Acute (11) Physical deconditioning: Status: Acute (12) Abdominal pain: Status: Acute (13) Nausea and vomiting: Status: Acute (14) Hypoxia: Status: Acute (15) Hyperkalemia: Status: Acute (16) Goals of care, counseling/discussion: Status: Resolved (17) Comfort measures only status: Status: Acute Reason for Visit Reason for Visit: low bp Hospital Course Hospital Course 62-year-old with past medical history of CAD, severe depression with history of suicidal ideation, chronic back pain with most recent history of small bowel obstruction requiring ex lap, ESBL E. coli UTI and pneumonia, hypertension who presented from the [place] [facility] with concerns for abdominal pain, nausea and vomiting and found to be slightly more hypoxic than baseline and hypotensive not responsive to fluid challenges. During his hospital stay he was managed for septic shock with broad-spectrum antibiotics, blood culture was negative, sputum culture was growing, MRSA and ESBL E. coli. Septic shock was resolved during hospital stay, he was also managed for hypoxic hypercapnic respiratory failure, secondary to pneumonia, he was on BiPAP, nebs, antibiotics steroids, patient was also managed for, metabolic encephalopathy, secondary to, respiratory failure hyponatremia, later hypernatremia, hyper ammonemia, patient was kept on, lactulose, both hypo and hypernatremia were addressed, where resolved, he was also managed for ileus, with NG tube,npo, which was later resolved, he was continued to managed for his other comorbid medical condition, but overall, patient recovery was, not very meaningful, he was BiPAP dependent, extremely deconditioned and weak, with all his comorbid conditions, and poor overall prognosis, family decided to make him, initially comfort care, and later he was discharged to [facility]. Physical Exam HENMT: COMMON NORMALS: normocephalic and atraumatic HEAD & SCALP: normocephalic and atraumatic Resp: OTHER: Coarse breath sounds Cardio: COMMON NORMALS: regular rate, regular rhythm, S1 normal heart sound present, S2 normal heart sound present, No gallops present (Cardio), No murmurs present (Cardio), No rub (Cardio) and Peripheral pulses 2+ throughout RATE: regular rate RHYTHM: regular rhythm HEART SOUNDS: S1 normal heart sound present and S2 normal heart sound present PERIPHERAL PULSES: Peripheral pulses 2+ throughout GI: COMMON NORMALS: Soft to palpation and no masses PALPATION: Yes Soft to palpation RECTAL EXAM: Yes deferred OTHER: hypoactive BS Present Extremity: COMMON NORMALS: no clubbing, cyanosis or edema and no pedal edema Urinary Catheter Management: Nuñez: Cath Placed During This Visit: yes Reason for Continuing Indwelling Catheter: Required Immobilization for Trauma or Surgery or Anesthesia Urinary Catheter Date of Insertion: 12/21/22 Discharge Data Studies Completed and Pending Completed Studies During Hospitalization Category Date Time Status CT chest abdomen pelvis [CT chest abdpel w/*[id number] Cat Scan 12/21/22 14:46 Completed ] Stat CXRP [XR chest 1V portable [id number]] Routine Exams 12/21/22 17:48 Completed XR acute abdomen series [id number] Routine Exams 12/22/22 10:00 Completed XR chest 1V [id number] Stat Exams 12/21/22 11:40 Completed XR chest 1V portable [id number] Routine Exams 12/24/22 09:37 Completed XR chest 1V portable [id number] Routine Exams 12/27/22 16:18 Completed Radiology Impressions Chest/Abdomen/Pelvis CT 12/21/22 14:46 IMPRESSION: 1. Lung volumes are decreased with chronic elevation RIGHT hemidiaphragm. 2. Bilateral pulmonary opacifications, greatest in the upper lobes. Pneumonitis versus pneumonia and edema. 3. Marked air distention of the colon with fluid and air in the small bowel. Probably due to an ileus. No transition point is identified. 4. No free air or ascites. 5. Aberrant RIGHT subclavian artery. 6. Prior cholecystectomy. Chest/Abdomen X-ray 12/22/22 10:00 IMPRESSION: 1. Similar dilation of small and large bowel loops. 2. Low lung volumes with patchy bibasilar airspace opacities, which may reflect atelectasis versus aspiration or pneumonia. Chest X-Ray 12/27/22 16:18 IMPRESSION: 1. No acute findings. 2. NG tube is in the proximal stomach 3. Right central line is at the caval atrial junction Laboratory Results WBC 10.8 10^3/uL (4.0-10.0) H 01/01/23 04:49 RBC 2.50 10^6/uL (4.1-5.3) L 01/01/23 04:49 Hgb 8.1 g/dL (11.7-16.6) L 01/01/23 04:49 Hct 25.4 % (42.0-52.0) L 01/01/23 04:49 MCV 101.6 fl (80-94) H 01/01/23 04:49 MCH 32.4 pg (28.0-34.0) 01/01/23 04:49 MCHC 31.9 g/dL (30.0-36.0) 01/01/23 04:49 RDW 15.8 % (12.1-15.1) H 01/01/23 04:49 Plt Count 85 10^3/cmm (130-400) L 01/01/23 04:49 MPV 13.5 fL (7.4-10.4) H 01/01/23 04:49 Neut % (Auto) 86.1 % 01/01/23 04:49 Lymph % (Auto) 6.6 % 01/01/23 04:49 [place] % (Auto) 5.6 % 01/01/23 04:49 Eos % (Auto) 1.0 % 01/01/23 04:49 Baso % (Auto) 0.1 % 01/01/23 04:49 Neut # (Auto) 9.30 10^3/uL (1.8-7.7) H 01/01/23 04:49 Lymph # (Auto) 0.7 10^3/uL (0.8-4.8) L 01/01/23 04:49 [place] # (Auto) 0.6 10^3/uL (0.2-0.9) 01/01/23 04:49 Eos # (Auto) 0.1 10^3/uL (0.0-0.8) 01/01/23 04:49 Baso # (Auto) 0.0 10^3/uL (0.0-0.1) 01/01/23 04:49 Nucleated RBC % (auto) 0 % 01/01/23 04:49 Nucleated RBCs # 0.0 /100WBC 01/01/23 04:49 PT 13.60 SECONDS (12.1-14.9) 12/21/22 12:30 INR 1.01 (0.8-1.2) 12/21/22 12:30 D-Dimer 0.61 ug/mIFEU (0-0.59) H 12/21/22 12:30 Specimen Type Arterial 12/27/22 04:00 Sample Site Radial, left 12/27/22 04:00 ABG pH 7.41 (7.35-7.45) 12/27/22 04:00 ABG pCO2 46.2 mmHg (35-45) H 12/27/22 04:00 ABG pO2 55.9 mmHg (80.0-100.0) L 12/27/22 04:00 ABG HCO3 29.1 mmol/L (22-26) H 12/27/22 04:00 ABG O2 Saturation 90.6 12/27/22 04:00 ABG Base Excess 3.8 mmol/L (-2.0-2.0) H 12/27/22 04:00 Michael Test Pos 12/27/22 04:00 A-a O2 Gradient 22.7 mmHg (5-10) H 12/27/22 04:00 Hematocrit 29.5 % (42-52) L 12/27/22 04:00 Hgb O2 Saturation 87.8 % (95-100) L 12/27/22 04:00 Carboxyhemoglobin 1.5 %THgb (0.4-20.1) 12/27/22 04:00 Methemoglobin 1.6 % (0.4-1.5) H 12/27/22 04:00 Total Hemoglobin 9.6 g/dL (14-18) L 12/27/22 04:00 Sodium 145.0 mmol/L (131-143) H 12/27/22 04:00 Potassium 3.6 mmol/L (3.5-5.0) 12/27/22 04:00 Glucose 142.0 mg/dL (70-115) H 12/27/22 04:00 Ionized Calcium 1.2 mmol/L (1.1-1.4) 12/27/22 04:00 O2 Delivery Device Bipap 12/27/22 04:00 O2 Liters/Min 15.0 % 12/25/22 08:27 FiO2 40.0 % 12/27/22 04:00 PEEP 10.0 cmH20 12/27/22 04:00 Lab Technician ID [email or web address] 12/27/22 04:00 Sodium 135 mmol/L (136-145) L 01/01/23 04:49 Potassium 4.3 mmol/L (3.5-5.1) 01/01/23 04:49 Chloride 102 mmol/L (98-107) 01/01/23 04:49 Carbon Dioxide 27 mmol/L (22-29) 01/01/23 04:49 Anion Gap 10.3 (5-19) 01/01/23 04:49 BUN 11 mg/dL (8-23) 01/01/23 04:49 Creatinine 0.2 mg/dL (0.7-1.2) L 01/01/23 04:49 GFR Calculation 486.7 mL/min (90-130) H 01/01/23 04:49 Glucose 100 mg/dL (65-115) 01/01/23 04:49 POC Glucose 145 mg/dL (70-110) H 01/01/23 17:21 Estimat Average Glucose 80 12/22/22 02:26 Hemoglobin A1c 4.4 % (4.0-6.0) 12/22/22 02:26 Calculated Osmolality 279 mOsm/kg (285-295) L 01/01/23 04:49 Lactic Acid 0.8 mmol/L (0.5-2.2) 12/21/22 18:15 Calcium 7.8 mg/dL (8.5-10.5) L 01/01/23 04:49 Phosphorus 4.2 mg/dL (2.5-4.5) 12/22/22 02:26 Magnesium 2.8 mg/dL (1.7-2.3) H 12/28/22 03:16 Iron 63 ug/dL (59-158) 12/21/22 12:30 TIBC 79.19618 mcg/dl 12/21/22 12:30 % Saturation 78.0 % (20-50) H 12/21/22 12:30 Unsat Iron Binding < 17 ug/dL (112-347) L 12/21/22 12:30 Total Bilirubin 0.5 mg/dL (0.15-1.2) 01/01/23 04:49 AST 47 U/L (0-40) H 01/01/23 04:49 ALT 54 U/L (0-41) H 01/01/23 04:49 Alkaline Phosphatase 138 U/L (40-130) H 01/01/23 04:49 Ammonia 48 umol/L (16-60) 12/29/22 03:34 C-Reactive Protein 160.6 mg/L (0.0-4.9) H 12/21/22 12:30 NT-Pro-B Natriuret Pep 1339 pg/mL (0-125) H 12/21/22 12:30 Total Protein 5.0 g/dL (6.6-8.7) L 01/01/23 04:49 Albumin 2.8 g/dL (3.5-5.2) L 01/01/23 04:49 Globulin 2.2 g/dL (1.3-4.6) 01/01/23 04:49 Triglycerides 76 mg/dL (0-150) 12/22/22 02:26 Cholesterol 49 mg/dL (0-200) 12/22/22 02:26 LDL Cholesterol, Calc 18 mg/dL (50-129) L 12/22/22 02:26 HDL Cholesterol 16 mg/dL (60-100) L 12/22/22 02:26 LDL/HDL Ratio 1.13 RATIO (0.00-3.22) 12/22/22 02:26 Cholesterol/HDL Ratio 3.06 mg/dL (1.0-5.00) 12/22/22 02:26 Vitamin B12 > 2000 pg/mL (232-1245) H 12/21/22 12:30 Folate 7.1 ng/mL (4.5-32.2) 12/22/22 02:26 Procalcitonin 1.13 ng/mL (0-0.5) H 12/22/22 02:26 TSH 2.05 uIU/mL (0.27-4.20) 12/21/22 12:30 Urine Color [place] (Yellow) 12/21/22 15:56 Urine Appearance Cloudy (CLEAR) A 12/21/22 15:56 Urine pH 5 (5-7) 12/21/22 15:56 Ur Specific [place] 1.020 (1.005-1.030) 12/21/22 15:56 Urine Protein Trace (Negative) 12/21/22 15:56 Urine Glucose (UA) Norm (Normal) 12/21/22 15:56 Urine Ketones Negative (Negative) 12/21/22 15:56 Urine Blood 3+ (Negative) H 12/21/22 15:56 Urine Nitrate Negative (Negative) 12/21/22 15: Urine Bilirubin 1+ (Negative) H 12/21/22 15: Urine Urobilinogen 8 mg/dL (Negative) H 12/21/22 15:56 Ur Leukocyte Esterase 2+ (Negative) H 12/21/22 15:56 Urine RBC 5-10 /hpf (0-2) H 12/21/22 15:56 Urine WBC Too numerous to cnt /hpf (0-5) H 12/21/22 15:56 Ur Squamous Epith Cells None /hpf (0-5) 12/21/22 15:56 Amorphous Sediment Not Reportable 12/21/22 15:56 Urine Bacteria 3+ /hpf (NONE) H 12/21/22 15:56 Ur Random Sodium 31 mmol/L 12/21/22 15:56 Ur Random Potassium 21 mmol/L 12/21/22 15:56 Ur Random Chloride 12 mmol/L 12/21/22 15:56 Urine Creatinine 68 mg/dL (39-259) 12/21/22 15:56 Nasal Influ A H1 2009 PCR Not detected (NOT DETECT) 12/21/22 19:30 Vancomycin Trough 8.4 ug/mL (10-15) L 12/31/22 00:45 Adenovirus (PCR) Not detected (NOT DETECT) 12/21/22 19:30 C. pneumoniae DNA (PCR) Not detected (NOT DETECT) 12/21/22 19:30 Coronavirus 229E (PCR) Not detected (NOT DETECT) 12/21/22 19:30 Human Metapneumovir PCR Not detected (NOT DETECT) 12/21/22 19:30 Influenza A (H1) PCR Not detected (NOT DETECT) 12/21/22 19:30 Influenza A (H3) PCR Not detected (NOT DETECT) 12/21/22 19:30 Influenza Type A (PCR) Not detected (NOT DETECT) 12/21/22 19:30 Influenza Type B (PCR) Not detected (NOT DETECT) 12/21/22 19:30 M. pneumoniae (PCR) Not detected (NOT DETECT) 12/21/22 19:30 Parainfluenza 1 (PCR) Not detected (NOT DETECT) 12/21/22 19:30 Parainfluenza 2 (PCR) Not detected (NOT DETECT) 12/21/22 19:30 Parainfluenza 3 (PCR) Not detected (NOT DETECT) 12/21/22 19:30 Parainfluenza 4 (PCR) Not detected (NOT DETECT) 12/21/22 19:30 RSV Type A (PCR) Not detected (NOT DETECT) 12/21/22 19:30 RSV Type B (PCR) Not detected (NOT DETECT) 12/21/22 19:30 Entero/Rhino (PCR) Not detected (NOT DETECT) 12/21/22 19:30 SARS-CoV-2 (PCR) Detected (NOT DETECT) A 12/21/22 19:30 Blood Type O Positive 12/25/22 14:55 Rho(D) Type Positive 12/25/22 14:55 Antibody Screen Negative 12/25/22 14:55 Crossmatch See Detail 12/25/22 14:55 Vitals Last Vital Signs Temp 97.0 F L 01/02/23 08:00 Pulse 111 H 01/02/23 08:00 Resp 18 01/02/23 08:00 BP 123/83 01/02/23 08:00 Pulse Ox 90 01/02/23 08:00 O2 Del Method Nasal Cannula 01/02/23 08:00 O2 Flow Rate 2 01/02/23 04:00 FiO2 30 01/01/23 12:00 Discharge Plan Discharge Patient Disposition: Xfer [facility] Condition: Stable Prescriptions: Continued loperamide [Imodium A-D] 2 mg capsule 2 mg PO QID PRN (Reason: loose stool) Qty: 14 0RF (DME) CUFF AND COLLAR SLING See Rx Instructions .Route .MEDSUPPLY Qty: 1 0RF Rx Instructions: As directed melatonin 5 mg capsule 5 mg PO BEDTIME Qty: 30 5RF furosemide [Lasix] 40 mg tablet 40 mg PO QAM Qty: 30 5RF acetaminophen [Tylenol Extra Strength] 500 mg tablet 500 mg PO Q6H PRN (Reason: Pain) tizanidine 4 mg tablet 4 mg PO BID PRN (Reason: muscle spasticity) Qty: 60 0RF rosuvastatin 20 mg tablet 20 mg PO BEDTIME Qty: 30 2RF bupivacaine (PF) 0.25 % (2.5 mg/mL) solution 1 ml intra-articular ONCE Qty: 1 0RF tamsulosin 0.4 mg Capsule 0.4 mg PO QAM lisinopril 40 mg tablet 40 mg PO QAM potassium gluconate 595 mg (99 mg) Tablet 595 mg PO QAM quetiapine [Seroquel] 200 mg tablet 200 mg PO BEDTIME ondansetron 8 mg tablet,disintegrating 8 mg PO Q8H PRN (Reason: Nausea) dicyclomine 20 mg tablet 20 mg PO TID PRN (Reason: Abdominal Discomfort) Qty: 90 1RF sertraline [Zoloft] 50 mg tablet 100 mg PO QAM Qty: 30 0RF celecoxib 200 mg capsule 200 mg PO BID senna 8.6 mg Tablet 8.6 mg PO BID carvedilol 12.5 mg tablet 12.5 mg PO BID hydrocodone-acetaminophen 5-325 mg tablet 1 tab PO Q6H amlodipine 10 mg tablet 10 mg PO DAILY Centrum Silver Men 300-600-300 mcg Tablet 1 tab PO DAILY Prostat-Liquid See Rx Instructions .ROUTE .COMPLEX Rx Instructions: 30 ml bid Discharge Orders: Discharge Order (Routine); Ordered 01/02/23 Ordered By: Eder Manzano Referrals: [facility] [Outside] [facility] [Outside] Tina Go FNP [Primary Care Provider] - Patient Instructions: Opioid Safety Discharge Attestations Time Spent in Discharge Care*: less than 30 min Status at Discharge: Cognitive status at discharge: cognitively intact , Behavioral status at discharge: cooperative , Quality Metrics Clinical Quality Measures [ No reported AMI, CVA or VTE this stay] Coding Level of Care Code Acute Code for [facility] Fwd Diagnoses Acute respiratory failure with hypoxia and hypercapnia J96.01; J96.02 Pneumonia J18.9 Metabolic encephalopathy G93.41 Hyperammonemia E72.20 Ileus K56.7 Shock R57.9 Acute hyponatremia E87.1 UTI (urinary tract infection) N39.0 COVID-19 U07.1 Protein-energy malnutrition E46 Physical deconditioning R53.81 Abdominal pain R10.9 Nausea and vomiting R11.2 Hypoxia R09.02 Hyperkalemia E87.5 Goals of care, counseling/discussion Z71.89 Comfort measures only status Z51.5
[2023-01-02 12:00] VITALS: BP 123/76; PULSE 106; RESP 18; TEMP 36.4; O2SAT 90
[2023-01-02] MEDS: morphine 10 mg/0.5 mL oral liq UD SUBLINGUAL (15:10)
[2023-01-02 16:00] VITALS: BP 114/74; PULSE 114; RESP 22; TEMP 36.6; O2SAT 91
[2023-01-02] MEDS: nystatin powder 15 gm Btl 1 APPLIC TOPICAL (18:07)
[2023-01-02 20:00] VITALS: BP 99/69; PULSE 123; RESP 25; TEMP 36.3; O2SAT 79
--- NOTE | 2023-01-02 23:41 | PC.NURSE ---
Patient found unresponsive at 2220. No spontaneous cardiac or respiratory activity. Pronounced at 22:20. Jair Jacobo,RN House [facility] notified. Patients Laura called 22:30. wants body to sent to [facility] in [place]; [place] [facility] [place].
== END 2023-01-02 22:20 | disposition expired | DRG 871 ==
LOC: ER 17:07 → ICU 17:50 → MEDSURG 01-01 15:06
PROVIDERS: Emergency Medicine; Student in an Organized Health Care Education/Training Program; Admitting Provider Student in an Organized Health Care Education/Training Program; Emergency Provider Physician Assistant; PCP Nurse Practitioner Family; Visit Provider Internal Medicine
DX: A41.9 Sepsis, unspecified organism (principal); E43 Unspecified severe protein-calorie malnutrition; G93.41 Metabolic encephalopathy; J18.9 Pneumonia, unspecified organism; R65.21 Severe sepsis with septic shock; U07.1 COVID-19; J96.02 Acute respiratory failure with hypercapnia; J96.01 Acute respiratory failure with hypoxia; F33.9 Major depressive disorder, recurrent, unspecified; E87.1 Hypo-osmolality and hyponatremia; E87.0 Hyperosmolality and hypernatremia; K56.7 Ileus, unspecified; I47.20 Ventricular tachycardia, unspecified; N39.0 Urinary tract infection, site not specified; I25.10 Atherosclerotic heart disease of native coronary artery without angina pectoris; Z95.5 Presence of coronary angioplasty implant and graft; G89.29 Other chronic pain; M54.9 Dorsalgia, unspecified; Z87.440 Personal history of urinary (tract) infections; Z87.01 Personal history of pneumonia (recurrent); I95.9 Hypotension, unspecified; B96.20 Unspecified Escherichia coli [E. coli] as the cause of diseases classified elsewhere; B95.62 Methicillin resistant Staphylococcus aureus infection as the cause of diseases classified elsewhere; Z51.5 Encounter for palliative care; D64.9 Anemia, unspecified; E87.5 Hyperkalemia; Z68.36 Body mass index [BMI] 36.0-36.9, adult; K59.00 Constipation, unspecified; Z66 Do not resuscitate; E86.0 Dehydration; Z87.891 Personal history of nicotine dependence; Z98.84 Bariatric surgery status; F41.9 Anxiety disorder, unspecified; Z86.73 Personal history of transient ischemic attack (TIA), and cerebral infarction without residual deficits; Z99.81 Dependence on supplemental oxygen; I48.91 Unspecified atrial fibrillation; I49.5 Sick sinus syndrome; Z95.810 Presence of automatic (implantable) cardiac defibrillator; I10 Essential (primary) hypertension; E11.9 Type 2 diabetes mellitus without complications; Z79.891 Long term (current) use of opiate analgesic
CPT/HCPCS: 36415; 36416; 36430; 36556; 36592; 36600; 51702; 71045; 71260; 74022; 74177; 80048; 80051; 80053; 80061; 80202; 81001; 82140; 82330; 82436; 82570; 82607; 82746; 82805; 82962; 83036; 83540; 83550; 83605; 83735; 83880; 84100; 84132; 84133; 84145; 84295; 84300; 84443; 85025; 85378; 85610; 86140; 86403; 86850; 86900; 86920; 87040; 87070; 87077; 87086; 87186; 87205; 87449; 87486; 87581; 87633; 93005; 94640; 94660; 94664; 94669; 94799; 96360; 96361; 96372; 96376; 97161; 99285; C9113; J0610; J1100; J1644; J1815; J1940; J2185; J2270; J2405; J2765; J3370; J3475; J3480; J3490; J7030; J7040; J7042; J7060; J7070; J7614; J7644; P9016; P9046; Q9967